=== PATIENT | male | born 1950 | race Caucasian/White ===

== ENCOUNTER 2016-09-07 12:55 | Inpatient (IN) | payer MEDICARE, OTHER ==
[~2016-09-07] VITALS: Ht 177.8 cm; Wt 113.4 kg
[~2016-09-07 12:55] MED LIST: ALLO100T PO; ASPI325T PO; CYMB30CA PO; FURO40TA PO; GABA800T PO; HUMALOG SQ; ISOS30TA3 PO; LANTUS2P SQ; LIPI40TA PO; LISI-519 PO; METO50TA PO; NITR1SUB3 SL; OXYC1TAB36 PO; SPIR25TA PO
[2016-09-07] MEDS: NS 1000P @30 MLS/HR (KVO) IV SCH (14:00)
[2016-09-07 14:18] LABS: AUTOMATED NEUTROPHIL # 4.5 TH/MM3 (1.8-7.7); BASOPHIL % 0.6 % (0.0-2.0); EOSINOPHIL # 0.5 TH/MM3 (0-0.4); EOSINOPHIL % 7.6 % (0.0-4.0); HEMATOCRIT 39.9 % (39.0-51.0); HEMO FLAGS DIFF FINAL; LYMPH % 12.1 % (9.0-44.0); LYMPHOCYTE # 0.8 TH/MM3 (1.0-4.8); MEAN CELL VOLUME 88.5 FL (80.0-100.0); MEAN CORPUSCULAR HEMOGLOBIN 30.1 PG (27.0-34.0); MEAN CORPUSCULAR HGB CONC 34.1 % (32.0-36.0); MONO % 8.2 % (0.0-8.0); NEUT % 71.5 % (16.0-70.0); PLATELET COUNT 185 TH/MM3 (150-450); RED CELL DISTRIBUTION WIDTH 15.1 % (11.6-17.2); WHITE BLOOD COUNT 6.3 TH/MM3 (4.0-11.0)
[2016-09-07 14:31] LABS: APTT (PATIENT) 28.1 SEC (24.3-30.1); PROTHROMBIN TIME - PATIENT 11.1 SEC (9.8-11.6)
[2016-09-07 14:34] LABS: BICARBONATE 24.9 MEQ/L (21.0-32.0)
[2016-09-07] MEDS ORDERED: ISOS60TA PO (14:37)
[2016-09-07] MEDS ORDERED: TAMS0.4C4 PO (14:37)
[2016-09-07] MEDS ORDERED: NORT25CA PO (14:37)
[2016-09-07] MEDS ORDERED: CLOP75TA PO (14:37)
[2016-09-07] MEDS ORDERED: ASPI1TAB69 PO (14:37)
[2016-09-07 14:39] VITALS: BP 160/87; PULSE 89; RESP 18; TEMP 97.8; O2SAT 99
[2016-09-07] MEDS ORDERED: HEPARIN-NS/PF INJ 500 ML ONE ×2 (16:20→17:55)
[2016-09-07] MEDS ORDERED: IODIXANOL 320 MG/ML 100 ML VIAL (for Cath Lab) OTHER ONE (16:21)
[2016-09-07] MEDS ORDERED: MIDAZOLAM HCL 5 MG/5 ML VIAL ONE (16:21)
[2016-09-07] MEDS ORDERED: LIDOCAINE HCL 1% PF 30 ML VIAL ONE (17:54)
[2016-09-07] MEDS ORDERED: HEPARIN SODIUM - IV 10,000 UNITS/10 ML VIAL ONE (18:00)
[2016-09-07] MEDS ORDERED: SODIUM NITROPRUSSIDE 50 MG/2 ML VIAL ONE (18:43)
[2016-09-07] MEDS ORDERED: MIDAZOLAM HCL 2 MG/2 ML VIAL ONE (18:48)
[2016-09-07] MEDS ORDERED: CLOPIDOGREL 300 MG TAB ONE (19:14)
[2016-09-07] MEDS ORDERED: HEPARIN-D5W INJ 250 ML ONE (19:15)
[2016-09-07 19:30] VITALS: O2SAT 97
--- NOTE | 2016-09-07 19:37 | HHI.PR ---
Immediate Post Op Note Procedure Date: Sep 07, 2016 Pre Op Diagnosis: [place], high risk nuc Post Op Diagnosis: Severe MV CAD Surgeon: Martha Cummins MD, Facc Distiller(s): none Procedure: Cath Impella PTCA and stent svg to D1 Findings: 2/6 grafts patent 80% SVG D1 patent SVG OM Complications: none Specimen(s) removed: none Estimated blood loss: below 10 cc Patient to: Other Patient Condition: Fair Martha Cummins MD Sep 07, 2016 19:37
[2016-09-07 20:00] VITALS: BP 178/101; PULSE 120; PULSE 92; RESP 24; TEMP 96.6; O2SAT 96
[2016-09-07] MEDS: SODIUM CHLOR 0.9% 1000 ML INJ 1,000 ML IV SCH (21:26)
[2016-09-07] MEDS ORDERED: MISCELLANEOUS NURSING INFORMATION XX SCH (21:30)
[2016-09-07] MEDS ORDERED: METOCLOPRAMIDE HCL 10 MG/2 ML VIAL IV PRN (21:30)
[2016-09-07] MEDS ORDERED: CHLORHEXIDINE GLUCONATE 2 % 1 PACK (2 CLOTHS) TOP PRN (21:30)
[2016-09-07] MEDS ORDERED: SODIUM CHLORIDE 0.9% FLUSH 5 ML FLUSH IV FLUSH PRN (21:30)
[2016-09-07] MEDS ORDERED: MISC INFORMATION XX ONE (21:30)
[2016-09-07] MEDS ORDERED: HEPARIN SODIUM - IV 10,000 UNITS/10 ML VIAL IV ONE (21:45)
[2016-09-07] MEDS ORDERED: ATROPINE SULFATE 1 MG/10 ML SYRINGE ONE (21:54)
[2016-09-07] MEDS ORDERED: EPINEPHrine HCL (1:10,000) 1 MG/10 ML SYRINGE ONE (21:55)
[2016-09-07] MEDS ORDERED: HEPARIN-D5W INJ 250 ML IV SCH (22:00)
--- NOTE | 2016-09-07 22:16 | PD.CONS ---
HPI Service Critical Care Medicine Consult Requested By Primary Care Physician Annette Salcedo MD History of Present Illness 66-year-old gentleman with a history of coronary artery disease status post CABG underwent emergent cardiac catheterization by Dr. Cummins. Postprocedure his course is complicated by aphasia and right-sided weakness. 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 CALL 911 IF NO RELIEF Humalog Inj (Insulin Human Lispro) 1,000 Unit/10 Ml Vial 40 Units SQ TIDAC Metoprolol Tartrate 50 Mg Tab 50 Mg PO BID Lantus Inj (Insulin Glargine) 1,000 Unit/10 Ml Vial 80 Units SQ HS Reported Clopidogrel (Clopidogrel Bisulfate) 75 Mg Tab 75 Mg PO DAILY Tamsulosin (Tamsulosin HCl) 0.4 Mg Cap 0.4 Mg PO HS Isosorbide Mononitrate ER (Isosorbide Mononitrate) 60 Mg Tab 60 Mg PO DAILY Aspirin 81 Mg Tabdr 81 Mg PO DAILY Nortriptyline (Nortriptyline HCl) 25 Mg Cap 25 Mg PO HS Gabapentin 800 Mg Tab 800 Mg PO TID Lipitor (Atorvastatin Calcium) 40 Mg Tab 40 Mg PO HS Active Ordered Medications Current Medications Medications (Trade) Dose Ordered Sig/Eric Route PRN Reason Start Time Stop Time Status Last Admin Dose Admin Sodium Chloride (NS 1000 ml Inj) 1,000 ml @ 30 mls/hr Q24H IV 09/07/16 14:00 Aspirin (Ecotrin Ec) 81 mg DAILY PO 09/08/16 09:00 Atorvastatin Calcium (Lipitor) 40 mg HS PO 09/07/16 21:30 09/08/16 02:56 Clopidogrel Bisulfate (Plavix) 75 mg DAILY PO 09/08/16 09:00 Isosorbide Mononitrate (Imdur) 60 mg DAILY@07 PO 09/08/16 07:00 Metoprolol Tartrate 50 mg 50 mg BID PO 09/07/16 21:30 09/08/16 02:56 Sodium Chloride (NS 1000 ml Inj) 1,000 ml @ 84 mls/hr [id number] IV 09/07/16 21:26 09/07/16 21:26 IV Flush (NS Flush) 2 ml UNSCH PRN IV FLUSH FLUSH AFTER USING IV ACCESS 09/07/16 21:30 IV Flush (NS Flush) 2 ml BID IV FLUSH 09/08/16 09:00 Acetaminophen (Tylenol) 650 mg Q6H PRN PO PAIN 1-10 AND/OR FEVER >101F 09/07/16 21:30 Morphine Sulfate (Morphine Inj) 2 mg Q2H PRN IV PAIN SCALE 6 TO 10 09/07/16 21:30 09/08/16 01:00 Famotidine (Pepcid Inj) 20 mg Q24H IV PUSH 09/08/16 09:00 Lorazepam (Ativan Inj) 0.5 mg Q2HR PRN IV Agitation/Sedation 09/07/16 21:30 09/08/16 01:00 Ondansetron HCl (Zofran Inj) 4 mg Q6H PRN IV NAUSEA OR VOMITING 09/07/16 21:30 09/08/16 03:00 Metoclopramide HCl (Reglan Inj) 5 mg Q6H PRN IV NAUSEA OR VOMITING 09/07/16 21:30 Docusate Sodium (Colace) 100 mg BID PO 09/08/16 09:00 Miscellaneous Information 1 [id number] XX 09/07/16 21:30 Chlorhexidine Gluconate (Chlorhexidine 2% Cloth) 3 pack Taper DAILY@04 TOP 09/08/16 04:00 09/04/17 03:59 09/08/16 04:00 Chlorhexidine Gluconate (Chlorhexidine 2% Cloth) 3 pack UNSCH PRN TOP HYGIENIC CARE 09/07/16 21:30 Heparin Sodium (Porcine) (Heparin Inj) 5,000 units UNSCH PRN IV APTT LESS THAN 25 09/08/16 03:45 Heparin Sodium (Porcine) 2500 units 2,500 units UNSCH PRN IV APTT 25 TO 39 09/08/16 03:45 Heparin Sodium/ Dextrose 250 ml @ 0 mls/hr TITRATE IV 09/07/16 22:00 Dexmedetomidine HCl 1000 mcg/ Sodium Chloride 250 ml @ 0 mls/hr TITRATE IV 09/08/16 00:45 09/08/16 01:51 Heparin Sodium (Porcine)/Dextrose (Heparin Inj/D5W 500 ml Inj) 502.5 ml @ 0 mls/hr Q24H PRN IV SEE LABEL COMMENTS 09/08/16 01:00 09/08/16 01:52 Hydralazine HCl (Apresoline Inj) 20 mg Q4H PRN IV PUSH SBP>160, DBP>90 09/08/16 04:30 09/08/16 04:43 Family History Noncontributory Social History Lives alone, previously in [place] and [place]. (X3). Son locally in town to help on occasion. 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 Never smoker. No alcohol, no illicit drug abuse. Physical Exam Vital Signs Vital Signs Date Time Temp Pulse Resp B/P Pulse Ox O2 Delivery O2 Flow Rate FiO2 09/07/16 14:39 97.8 89 18 160/87 99 Physical Exam GENERAL: Well-nourished, well-developed patient. Aphasic SKIN: Warm and dry. HEAD: Normocephalic. EYES: No scleral icterus. No injection or drainage. NECK: Supple, trachea midline. No JVD or lymphadenopathy. CARDIOVASCULAR: Regular rate and rhythm without murmurs, gallops, or rubs. RESPIRATORY: Breath sounds equal bilaterally. No accessory muscle use. GASTROINTESTINAL: Abdomen soft, non-tender, nondistended. MUSCULOSKELETAL: No cyanosis, or edema. BACK: Nontender without obvious deformity. No CVA tenderness. EXTREMITIES: Pronator drift on the right, right-sided weakness Laboratory Laboratory Tests Test 09/07/16 13:40 White Blood Count 6.3 Red Blood Count 4.50 Hemoglobin 13.6 Hematocrit 39.9 Mean Corpuscular Volume 88.5 Mean Corpuscular Hemoglobin 30.1 Mean Corpuscular Hemoglobin 34.1 Concent Red Cell Distribution Width 15.1 Platelet Count 185 Mean Platelet Volume 7.8 Neutrophils (%) (Auto) 71.5 Lymphocytes (%) (Auto) 12.1 Monocytes (%) (Auto) 8.2 Eosinophils (%) (Auto) 7.6 Basophils (%) (Auto) 0.6 Neutrophils # (Auto) 4.5 Lymphocytes # (Auto) 0.8 Monocytes # (Auto) 0.5 Eosinophils # (Auto) 0.5 Basophils # (Auto) 0.0 CBC Comment DIFF FINAL Differential Comment Prothrombin Time 11.1 Prothromb Time International 1.0 Ratio Activated Partial 28.1 Thromboplast Time Sodium Level 137 Potassium Level 5.0 Chloride Level 104 Carbon Dioxide Level 24.9 Anion Gap 8 Blood Urea Nitrogen 45 Creatinine 3.05 Estimat Glomerular Filtration 21 Rate Random Glucose 162 Calcium Level 8.6 Result Diagram: 09/07/16 1340 09/07/16 1340 Assessment and Plan Problem List: (1) Coronary artery disease involving [place] heart ICD Code: I25.10 Status: Chronic (2) HTN (hypertension) ICD Code: I10 Status: Acute (3) CKD (chronic kidney disease) ICD Code: N18.9 Status: Acute Assessment and Plan Aphasia with right-sided weakness - CT head stat to rule out hemorrhagic stroke - Blood pressure control - If no bleed to continue anticoagulation per cardiology - Neurology consult - Physical therapy occupational therapy and speech therapy consult Acute on chronic kidney disease - Continue gentle hydration - Monitor I's and O's - Monitor electrolytes and creatinine - Continue Impalal device to improve clearance - Avoid nephrotoxins Coronary artery disease - Status post cardiac catheter and interventions - Further management per cardiology Diabetes - Insulin sliding scale Obstructive sleep apnea - CPAP per home settings DVT GI prophylaxis - Heparin drip - Pepcid Critical Care: The total critical care time was 35 minutes. Time to perform other separately billable procedures was not included in the critical care time. Tadeo Garcia MD Sep 07, 2016 22:16
--- NOTE | 2016-09-07 22:27 | RADRPT ---
EXAM DATE/TIME: 09/07/2016 22:08 [facility] COMPARISON: No previous studies available for comparison. INDICATIONS : Altered mental status. RADIATION DOSE: 56.35 CTDIvol (mGy) MEDICAL HISTORY : Hypertension. Cerebrovascular disease. SURGICAL HISTORY : None. ENCOUNTER: Subsequent ACUITY: 1 day PAIN SCALE: Non-responsive LOCATION: cranial TECHNIQUE: Multiple contiguous axial images were obtained of the head. Using automated exposure control and adj ustment of the mA and/or kV according to patient size, radiation dose was kept as low as reasonably a chievable to obtain optimal diagnostic quality images. FINDINGS: CEREBRUM: The ventricles are normal for age. No evidence of midline shift, mass lesion, hemorrhage or acute in farction. No extra-axial fluid collections are seen. POSTERIOR FOSSA: The cerebellum and brainstem are intact. The 4th ventricle is midline. The cerebellopontine angle i s unremarkable. EXTRACRANIAL: Small amount of fluid/debris seen in the right maxillary air cell. There appears to be some soft tiss ue swelling in the right super orbital region. SKULL: The calvaria is intact. No evidence of skull fracture. CONCLUSION: No acute intracranial abnormality. Sinus disease and supraorbital soft tissue swelling. Michael Vasquez MD on September 07, 2016 at 22:22 Board Certified Radiologist. This report was verified electronically.
--- NOTE | 2016-09-07 22:39 | RADRPT ---
EXAM DATE/TIME: 09/07/2016 22:21 [facility] COMPARISON: CHEST SINGLE AP, May 27, 2016, 8:27. INDICATIONS : Impella implant device positioning. MEDICAL HISTORY : Hypertension. Hypercholesterolemia. Arthritis. Diabetic. GERD. CVA. [place]. SURGICAL HISTORY : CABG. Cardiac cath w/ stent placement. ENCOUNTER: Initial ACUITY: 1 day PAIN SCORE: Non-responsive. LOCATION: Bilateral chest FINDINGS: Left ventricular assist device present, distal portion without in expected region of the left ventric ular apex and the other portion in the region of the aortic outflow tract. There is mild cardiomegaly . Patient has had previous median sternotomy and CABG. Mild, diffuse interstitial prominence of both lungs. CONCLUSION: Impella implant appears grossly appropriately positioned on this one view study. Mild failure. Michael Vasquez MD on September 07, 2016 at 22:31 Board Certified Radiologist. This report was verified electronically.
[2016-09-07] MEDS: MORPHINE SULFATE 4 MG/ML INJ IV PRN (22:45)
[2016-09-07] MEDS: LORazepam 2 MG/ML VIAL IV PRN (22:50)
[2016-09-07] MEDS ORDERED: DEXMEDETOMIDINE INJ 50 ML ONE ×2 (22:59→23:15)
[2016-09-07 23:00] VITALS: PULSE 80
[2016-09-07 23:06] LABS: HEMATOCRIT 43.3 % (39.0-51.0); MEAN CELL VOLUME 89.8 FL (80.0-100.0); MEAN CORPUSCULAR HEMOGLOBIN 30.2 PG (27.0-34.0); MEAN CORPUSCULAR HGB CONC 33.6 % (32.0-36.0); PLATELET COUNT 198 TH/MM3 (150-450); RED BLOOD COUNT 4.82 MIL/MM3 (4.50-5.90); RED CELL DISTRIBUTION WIDTH 15.3 % (11.6-17.2); REVIEW FLAG FINAL; WHITE BLOOD COUNT 8.6 TH/MM3 (4.0-11.0)
[2016-09-07 23:17] LABS: APTT (PATIENT) 52.6 SEC (24.3-30.1); PROTHROMBIN TIME - PATIENT 11.1 SEC (9.8-11.6)
[2016-09-07] MEDS: DEXMEDETOMIDINE INJ 50 ML IV SCH ×2 (23:28→23:31)
[2016-09-07 23:30] VITALS: BP 167/104; PULSE 79; RESP 22; TEMP 98; O2SAT 98
[2016-09-08] VITALS (13 sets, daily range): BP systolic 105–166; BP diastolic 53–91; PULSE 63–97; RESP 16–22; TEMP 98.4–99.9; O2SAT 90–99
[2016-09-08] MEDS ORDERED: DEXMEDETOMIDINE INJ 50 ML ONE (00:45)
[2016-09-08] MEDS: LORazepam 2 MG/ML VIAL IV PRN ×3 (01:00→23:00)
[2016-09-08] MEDS: MORPHINE SULFATE 4 MG/ML INJ IV PRN (01:00)
[2016-09-08] MEDS ORDERED: HEPARIN IV PRN ×2 (01:00)
[2016-09-08] MEDS ORDERED: DEXTROSE 5% IV PRN ×2 (01:00)
[2016-09-08] MEDS ORDERED: WATE IV PRN ×2 (01:00)
[2016-09-08] MEDS: DEXMEDETOMIDINE INJ 1,000 MCG in SODIUM CHLOR 0.9% 250 ML INJ 240 ML IV SCH ×2 (01:51→13:00)
[2016-09-08] MEDS: METOPROLOL TARTRATE 50 MG TAB PO SCH ×3 (02:56→20:46)
[2016-09-08] MEDS: ATORVASTATIN 40 MG TAB PO SCH ×2 (02:56→20:46)
[2016-09-08] MEDS: ONDANSETRON HCL 4 MG/2 ML VIAL IV PRN ×2 (03:00→22:00)
[2016-09-08] MEDS ORDERED: HEPARIN SODIUM - IV 10,000 UNITS/10 ML VIAL IV PRN ×2 (03:45)
[2016-09-08] MEDS: CHLORHEXIDINE GLUCONATE 2 % 1 PACK (2 CLOTHS) TOP SCH (04:00)
[2016-09-08] MEDS: hydrALAZINE HCL 20 MG/ML VIAL IV PUSH PRN ×2 (04:43→13:31)
[2016-09-08 04:55] LABS: AUTOMATED NEUTROPHIL # 8.2 TH/MM3 (1.8-7.7); BASOPHIL % 0.3 % (0.0-2.0); EOSINOPHIL # 0.4 TH/MM3 (0-0.4); EOSINOPHIL % 4.2 % (0.0-4.0); HEMATOCRIT 39.9 % (39.0-51.0); HEMO FLAGS DIFF FINAL; LYMPH % 5.4 % (9.0-44.0); LYMPHOCYTE # 0.5 TH/MM3 (1.0-4.8); MEAN CELL VOLUME 89.7 FL (80.0-100.0); MEAN CORPUSCULAR HEMOGLOBIN 30.3 PG (27.0-34.0); MEAN CORPUSCULAR HGB CONC 33.8 % (32.0-36.0); MONO % 7.6 % (0.0-8.0); NEUT % 82.5 % (16.0-70.0); PLATELET COUNT 168 TH/MM3 (150-450); RED BLOOD COUNT 4.45 MIL/MM3 (4.50-5.90); RED CELL DISTRIBUTION WIDTH 14.9 % (11.6-17.2)
[2016-09-08 05:04] LABS: APTT (PATIENT) 39.2 SEC (24.3-30.1)
[2016-09-08 05:23] LABS: ALKALINE PHOSPHATASE 60 U/L (45-117); ALT (GPT) 24 U/L (12-78); ANION GAP 9 MEQ/L (5-15); AST (GOT) 27 U/L (15-37); BICARBONATE 21.4 MEQ/L (21.0-32.0); BLOOD UREA NITROGEN 39 MG/DL (7-18); CHLORIDE 108 MEQ/L (98-107); CREATINE KINASE 370 U/L (39-308); GLOMERULAR FILTRATION RATE 25 ML/MIN (>89); HDL CHOLESTEROL 34.7 MG/DL (40.0-60.0); LDL CHOLESTEROL 149 MG/DL (0-99); MAGNESIUM 1.8 MG/DL (1.5-2.5); POTASSIUM 6.1 MEQ/L (3.5-5.1); SODIUM (NA) 138 MEQ/L (136-145); TOTAL BILIRUBIN ADULT 0.6 MG/DL (0.2-1.0)
[2016-09-08 05:52] LABS: CKMB 8.8 NG/ML (0.5-3.6)
[2016-09-08] MEDS: ISOSORBIDE MONONITRATE 60 MG TAB PO SCH ×2 (06:27→13:41)
--- NOTE | 2016-09-08 07:34 | MA ---
cc: VIVIENNE ANGEL DATE: 09/07/2016 INDICATIONS: 1. Unstable angina, Class IV angina. 2. History of multivessel coronary bypass. 3. High risk nuclear myocardial perfusion study. 4. Cardiomyopathy with moderate left ventricular systolic dysfunction. 5. Class II systolic congestive heart failure. PROCEDURE PERFORMED: 1. Retrograde left heart catheterization with left ventriculography, selective coronary angiography, saphenous venous graft angiography, left internal mammary artery angiography. 2. Insertion of External Heart Assist System into heart, percutaneous approach. 3. Angioplasty and stenting of the saphenous vein graft to the first diagonal artery. 4. Moderate sedation. ACCESS SITE: Left and right femoral artery. EQUIPMENT USED: A 5-American pigtail catheter, 5-American JL4 and AR modified coronary artery catheters, AL-1/bypass graft coronary catheter. Impella 4.0 external assist system. Left bypass graft catheter with side holes. BMW wire. 2.0 x 12-mm balloon for pre-dilatation. 3.0 x 18-mm Resolute stent at 16 atmospheres. MEDICATIONS: Versed IV. Fentanyl IV. Heparin IV. Nitroglycerin IC. Nipride IC. COMPLICATIONS: None. ESTIMATED BLOOD LOSS: Less than 10 cc. METHOD OF HEMOSTASIS: AngioSeal closure of the right femoral artery. Impella pump left in place. RESULTS HEMODYNAMICS: Heart rate 80 beats per minute. Left ventricular end-diastolic pressure 15 mmHg. Left ventricle 140/16. Aorta 140/80-125. LEFT VENTRICULOGRAPHY: Left ventricular ejection fraction 40% with moderate global hypokinesis. CORONARY ANGIOGRAPHY: The left main coronary artery is patent. The left anterior descending coronary artery is totally occluded in the mid-portion. D1 is totally occluded. The left circumflex artery is totally occluded at its ostium. The right coronary artery is totally occluded in the proximal portion in-stent. Ramus intermedius totally occluded in the proximal portion. SAPHENOUS VEIN GRAFTS: The left subclavian artery is patent. The left internal mammary artery is atretic, occluded. Saphenous vein graft to the first diagonal artery has 80% stenosis in the proximal portion. Saphenous vein graft to the obtuse marginal artery is patent. Saphenous vein graft to the second diagonal artery is totally occluded. Saphenous vein graft to the posterolateral branch of the right coronary artery is totally occluded. Stenosis in the saphenous vein graft to the first diagonal artery was 14-mm long, 80%, pre KRYSTAL flow 2, post KRYSTAL flow 3, post-stenosis 0. POST-INTERVENTION ANGIOGRAPHY: No thrombosis, dissection or distal embolization. DIAGNOSES: 1. Severe multivessel coronary artery disease with two out of six grafts patent with 80% stenosis of the saphenous vein graft to the first diagonal artery. 2. Moderate left ventricular dysfunction consistent with ischemic cardiomyopathy. 3. Placement of Impella External Heart Assist system. 4. Successful stenting and angioplasty of the saphenous venous graft to the first diagonal artery. DISPOSITION: 1. Mr. Whitten will be monitored in the CV ICU. 2. We will continue anticoagulation with heparin and also continue platelet inhibition with aspirin and Plavix. 3. We will continue aggressive modification of his cardiac risk factors. 4. We will closely monitor his renal function since he has significant baseline renal insufficiency. 5. If he remains stable, his Impella External Heart Assist device will be removed tomorrow. MD RELL Castaneda/JE /8:05 PM /7:07 AM ROBIN
[2016-09-08] MEDS: SODIUM CHLORIDE 0.9% FLUSH 5 ML FLUSH IV FLUSH SCH ×2 (09:00→20:46)
[2016-09-08] MEDS: FAMOTIDINE 20 MG/2 ML VIAL IV PUSH SCH (09:00)
--- NOTE | 2016-09-08 09:14 | MB ---
cc: CALLIE TERRAZAS M.D. DATE OF CONSULTATION 09/08/2016 REASON FOR CONSULTATION He is seen in neurological consultation. He is a 66-year-old with a history of a right hemiparesis an aphasia following cardiac catheterization with angiopathy and stenting. The patient has a history of CABG. He had unstable angina and cardiomyopathy. He underwent cardiac catheterization yesterday with insertion of an external heart system into heart, percutaneous approach and angioplasty and stenting of the saphenous vein graft to the first diagonal artery as per Dr. Cummins's description. He was treated with heparin intravenous and also aspirin and Plavix. NEUROLOGICAL EXAM The neurologic exam is very limited at this point. The patient is on Precedex and reportedly according to the nursing staff, he is agitated without the discussed sedation. He is obese and also has a history of chronic renal failure. The pupils were very small. Stimulation to muscle stretch reflex essentially disclosed no responses. Plantar stimulation also shows minimal or no response. ASSESSMENT Post cardiac cath/angiopathy/stenting, the patient reportedly developed aphasia and a right hemiparesis. The CT brain is showing no acute abnormality, sinus disease and supraorbital soft tissue swelling noted. There is a history of severe coronary artery disease, previous CABG. PLAN Continue heparin therapy. Antiplatelets therapy already initiated and the patient was given a loading dose of Plavix and now on 75 mg daily along with baby aspirin. When medically stable and feasible, follow up CT brain or an MRI of brain will be arranged and more adequate neurological assessment will be made. I will follow the neurological course. Thank you for asking us to assist in his care. MD JO Khanna/PREMA /8:36 AM /8:53 AM
[2016-09-08] MEDS ORDERED: BACITRACIN OINT 0.9 GM PKT ONE (09:19)
[2016-09-08 09:56] LABS: BLOOD GAS BASE EXCESS -2.3 mmol/L (-2-2); BLOOD GAS CARBOXYHEMOGLOBIN 1.9 % (0-4); BLOOD GAS HCO3 23 mmol/L (22-26); BLOOD GAS METHEMOGLOBIN 1.3 % (0-2); BLOOD GAS O2 HGB SATURATION 93 % (90-100); BLOOD GAS OXYGEN CONTENT 17.8 Vol % (12.0-20.0); BLOOD GAS PCO2 43 mmHg (38-42); BLOOD GAS PO2 84 mmHg (61-120); BLOOD GAS TOTAL HGB 13.6 G/DL (12.0-16.0); CRITICAL VALUE NO; DRAW SITE ART LINE; FIO2 25 %; OXYGEN DEVICE BiPAP; STAT NO; TEMP CORR TO 98.6; VENT SETTINGS IPAP14/EPAP7
[2016-09-08 12:17] LABS: APTT (PATIENT) 29.2 SEC (24.3-30.1)
[2016-09-08] MEDS ORDERED: GLUCAGON 1 MG/ML VIAL OTHER PRN (12:45)
[2016-09-08] MEDS ORDERED: SODIUM BICARBONATE 8.4% INJ 50 MEQ/50 ML SYR IV PUSH ONE (12:45)
[2016-09-08] MEDS ORDERED: INSULIN HUMAN REGULAR 1,000 UNITS/10 ML VIAL IV PUSH ONE (12:45)
[2016-09-08] MEDS ORDERED: SODIUM POLYSTYRENE SULFONATE SUSP 15 GM/60 ML CUP PO ONE (12:45)
[2016-09-08] MEDS ORDERED: DEXTROSE 50% IN WATER 50 ML VIAL(D50) IV PUSH PRN (12:45)
[2016-09-08] MEDS ORDERED: SODIUM BICARBONATE 8.4% INJ 50 ML ONE (12:51)
[2016-09-08] MEDS: INSULIN NovoLIN REGULAR SUPPLEMENTAL SCALE SQ SCH ×3 (12:56→21:00)
--- NOTE | 2016-09-08 13:00 | HHI.CCPN ---
Subjective Remarks/Hospital Course 66-year-old gentleman with a history of coronary artery disease status post CABG underwent emergent cardiac catheterization by Dr. Cummins. Postprocedure his course is complicated by aphasia and right-sided weakness. 09/08 Patient was on BIPAP 14/7 with FIO2 25%. On Precedex and heparin drips. CT brain showed last night showed no acute process. Impela was removed this morning by Dr. Cummins. T:99.9 Renal function improving with Cr:2.5 from 3.0 hyperkalemic with K 6.1 Objective Vital Signs Date Time Temp Pulse Resp B/P Pulse Ox O2 Delivery O2 Flow Rate FiO2 09/08/16 11:40 97 Nasal Cannula 3.00 09/08/16 11:00 99.9 64 22 148/81 166/76 09/08/16 08:10 25 Result Diagram: 09/08/16 0430 09/08/16 043 Other Results Laboratory Tests Test 09/07/16 09/07/16 09/08/16 09/08/16 13:40 22:49 04:30 09:45 White Blood Count 6.3 TH/MM3 8.6 TH/MM3 10.0 TH/MM3 Red Blood Count 4.50 MIL/MM3 4.82 MIL/MM3 4.45 MIL/MM3 Hemoglobin 13.6 GM/DL 14.5 GM/DL 13.5 GM/DL Hematocrit 39.9 % 43.3 % 39.9 % Mean Corpuscular Volume 88.5 FL 89.8 FL 89.7 FL Mean Corpuscular Hemoglobin 30.1 PG 30.2 PG 30.3 PG Mean Corpuscular Hemoglobin 34.1 % 33.6 % 33.8 % Concent Red Cell Distribution Width 15.1 % 15.3 % 14.9 % Platelet Count 185 TH/MM3 198 TH/MM3 168 TH/MM3 Mean Platelet Volume 7.8 FL 7.9 FL 7.5 FL Neutrophils (%) (Auto) 71.5 % 82.5 % Lymphocytes (%) (Auto) 12.1 % 5.4 % Monocytes (%) (Auto) 8.2 % 7.6 % Eosinophils (%) (Auto) 7.6 % 4.2 % Basophils (%) (Auto) 0.6 % 0.3 % Neutrophils # (Auto) 4.5 TH/MM3 8.2 TH/MM3 Lymphocytes # (Auto) 0.8 TH/MM3 0.5 TH/MM3 Monocytes # (Auto) 0.5 TH/MM3 0.8 TH/MM3 Eosinophils # (Auto) 0.5 TH/MM3 0.4 TH/MM3 Basophils # (Auto) 0.0 TH/MM3 0.0 TH/MM3 CBC Comment DIFF FINAL DIFF FINAL Differential Comment Prothrombin Time 11.1 SEC 11.1 SEC Prothromb Time International 1.0 RATIO 1.0 RATIO Ratio Activated Partial 28.1 SEC 52.6 SEC 39.2 SEC Thromboplast Time Sodium Level 137 MEQ/L 138 MEQ/L Potassium Level 5.0 MEQ/L 6.1 MEQ/L Chloride Level 104 MEQ/L 108 MEQ/L Carbon Dioxide Level 24.9 MEQ/L 21.4 MEQ/L Anion Gap 8 MEQ/L 9 MEQ/L Blood Urea Nitrogen 45 MG/DL 39 MG/DL Creatinine 3.05 MG/DL 2.54 MG/DL Estimat Glomerular Filtration 21 ML/MIN 25 ML/MIN Rate Random Glucose 162 MG/DL 254 MG/DL Calcium Level 8.6 MG/DL 7.7 MG/DL Ammonia 13 MCMOL/L Troponin I 0.72 NG/ML 0.56 NG/ML Nasal Screen MRSA (PCR) NEGATIVE Magnesium Level 1.8 MG/DL Total Bilirubin 0.6 MG/DL Direct Bilirubin 0.1 MG/DL Aspartate Amino Transf 27 U/L (AST/SGOT) Alanine Aminotransferase 24 U/L (ALT/SGPT) Alkaline Phosphatase 60 U/L Total Creatine Kinase 370 U/L Creatine Kinase MB 8.8 NG/ML Creatine Kinase MB % 2.4 % Total Protein 7.0 GM/DL Albumin 3.0 GM/DL Triglycerides Level 211 MG/DL Cholesterol Level 226 MG/DL LDL Cholesterol 149 MG/DL HDL Cholesterol 34.7 MG/DL Cholesterol/HDL Ratio 6.51 RATIO Blood Gas Puncture Site ART LINE Blood Gas Patient Temperature 98.6 Blood Gas HCO3 23 mmol/L Blood Gas Base Excess -2.3 mmol/L Blood Gas Oxygen Saturation 93 % Arterial Blood pH 7.34 Arterial Blood Partial 43 mmHg Pressure CO2 Arterial Blood Partial 84 mmHg Pressure O2 Arterial Blood Oxygen Content 17.8 Vol % Arterial Blood 1.9 % Carboxyhemoglobin Arterial Blood Methemoglobin 1.3 % Blood Gas Hemoglobin 13.6 G/DL Oxygen Delivery Device BiPAP Blood Gas Ventilator Setting [id number] Blood Gas Inspired Oxygen 25 % Test 09/08/16 11:36 Activated Partial 29.2 SEC Thromboplast Time Imaging Last Impressions Head CT 09/07/16 0000 Signed Impressions: Service Date/Time: Wednesday, September 07, 2016 22:08 - CONCLUSION: No acute intracranial abnormality. Sinus disease and supraorbital soft tissue swelling. Michael Vasquez MD Chest X-Ray 09/07/16 0000 Signed Impressions: Service Date/Time: Wednesday, September 07, 2016 22:21 - CONCLUSION: Impella implant appears grossly appropriately positioned on this one view study. Mild failure. Michael Vasquez MD Objective Remarks GENERAL: Well-nourished, well-developed patient. Aphasic SKIN: Warm and dry. HEAD: Normocephalic. EYES: No scleral icterus. No injection or drainage. NECK: Supple, trachea midline. No JVD or lymphadenopathy. CARDIOVASCULAR: Regular rate and rhythm without murmurs, gallops, or rubs. RESPIRATORY: Breath sounds equal bilaterally. No accessory muscle use. GASTROINTESTINAL: Abdomen soft, non-tender, nondistended. MUSCULOSKELETAL: No cyanosis, or edema. BACK: Nontender without obvious deformity. No CVA tenderness. EXTREMITIES: Pronator drift on the right, right-sided weakness A/P Problem List: (1) Coronary artery disease involving [place] heart ICD Code: I25.10 Status: Chronic (2) HTN (hypertension) ICD Code: I10 Status: Acute (3) CKD (chronic kidney disease) ICD Code: N18.9 Status: Acute Assessment and Plan 1)Resp Insuff 2)Aphasia with right-sided weakness 3)CAD 4)Acute on chronic kidney disease 5)Hyperkalemia 6)DM 7)HTN 8)LEONARD 90Hyperlipidemia Plan Neuro: Monitor neuro status and avoid sedatives. Wean off Precedex drip. CT brain 09/07: No acute disease, Neuro is following- Cr. Patrick Pulm: Continue with oxygen keep sat >92% Bronchodilators, NIPPV PRN for resp distress CV: Monitor HR and BP keep MAP>65mmHg Continue with ASA, Plavix, Imdur 60mg daily, Lopressor 50mg BID. s/p cardiac cath showed multivessel disease with 2/6 grafts patent, EF 40 %. s/p removal Impella today. Cards- Dr. Cummins : Monitor renal function, I/O's, avoid nephrotoxins. treat hyperkalemia with IV insulin, bicarb, rafal gluconate, Kayexalate Renal function improving with Cr: 2.5 from 3.0. UO 2300ml since yesterday.. Renal-Dr. Naidu GI: Speech eval, diet per speech. On Pepcid IV daily ID: Monitor for signs of infections ( Fever, WBC) check UA with cx if indicated Heme: Monitor CBC Endo: SSI with accuchecks for glycemic control GI prophylaxis- on Pepcid DVT prophylaxis- SCD, on heparin drip. Level 3 Leroy Urena MD Sep 08, 2016 13:00
[2016-09-08] MEDS ORDERED: RESP: ALBUTEROL 2.5 MG/3 ML NEB (SCH) NEB ONE (13:15)
--- NOTE | 2016-09-08 13:25 | PD.CONS ---
HPI Service Nephrology Consult Requested By Dr. Urena Reason for Consult Acute renal failure Primary Care Physician Annette Salcedo MD History of Present Illness Patient is a 66-year-old male with history of coronary artery disease status post CABG, osteoarthritis, diabetes, hyperlipidemia who was admitted there with unstable angina and underwent heart catheterization found to have significant blockages requiring stent and impella device, he has acute renal failure and creatinine although better his potassium went up to 6.1 this was treated medically and he received D50 insulin and sodium bicarbonate, I have been consulted he is passing urine, other complication including right sided weakness and CVA Review of Systems ROS Limitations: Clinical Condition Past Family Social History Allergies: Coded Allergies: No Known Allergies (Verified , 09/07/16) Past Medical History Coronary artery disease, with multiple stents DM II, with neuropathy, on insulin CKD, with baseline creatinine 2.5, stage 3 gout HTN hyperlipidemia chronic scrotal swelling, h/o scrotal abscess + Rheumatoid factor sleep apnea, on CPAP Depression Past Surgical History Bilateral knee cardiac catheterization, 2000 with ~10 stents CABG bilateral knee prosthesis right 1996, left 1999 due to gout attack 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 CALL 911 IF NO RELIEF Humalog Inj (Insulin Human Lispro) 1,000 Unit/10 Ml Vial 40 Units SQ TIDAC Metoprolol Tartrate 50 Mg Tab 50 Mg PO BID Lantus Inj (Insulin Glargine) 1,000 Unit/10 Ml Vial 80 Units SQ HS Reported Clopidogrel (Clopidogrel Bisulfate) 75 Mg Tab 75 Mg PO DAILY Tamsulosin (Tamsulosin HCl) 0.4 Mg Cap 0.4 Mg PO HS Isosorbide Mononitrate ER (Isosorbide Mononitrate) 60 Mg Tab 60 Mg PO DAILY Aspirin 81 Mg Tabdr 81 Mg PO DAILY Nortriptyline (Nortriptyline HCl) 25 Mg Cap 25 Mg PO HS Gabapentin 800 Mg Tab 800 Mg PO TID Lipitor (Atorvastatin Calcium) 40 Mg Tab 40 Mg PO HS Active Ordered Medications Current Medications Medications (Trade) Dose Ordered Sig/Eric Route Start Time Stop Time Status Last Admin (NS 1000 ml Inj) 1,000 ml @ 30 mls/hr Q24H IV 09/07/16 14:00 (Ecotrin Ec) 81 mg DAILY PO 09/08/16 09:00 (Lipitor) 40 mg HS PO 09/07/16 21:30 09/08/16 02:56 (Plavix) 75 mg DAILY PO 09/08/16 09:00 (Imdur) 60 mg DAILY@07 PO 09/08/16 07:00 Metoprolol Tartrate 50 mg 50 mg BID PO 09/07/16 21:30 09/08/16 02:56 (NS 1000 ml Inj) 1,000 ml @ 84 mls/hr [id number] IV 09/07/16 21:26 09/07/16 21:26 (NS Flush) 2 ml UNSCH PRN IV FLUSH 09/07/16 21:30 (NS Flush) 2 ml BID IV FLUSH 09/08/16 09:00 (Tylenol) 650 mg Q6H PRN PO 09/07/16 21:30 (Morphine Inj) 2 mg Q2H PRN IV 09/07/16 21:30 09/08/16 01:00 (Pepcid Inj) 20 mg Q24H IV PUSH 09/08/16 09:00 (Ativan Inj) 0.5 mg Q2HR PRN IV 09/07/16 21:30 09/08/16 01:00 (Zofran Inj) 4 mg Q6H PRN IV 09/07/16 21:30 09/08/16 03:00 (Reglan Inj) 5 mg Q6H PRN IV 09/07/16 21:30 (Colace) 100 mg BID PO 09/08/16 09:00 Miscellaneous Information 1 Q361D XX 09/07/16 21:30 (Chlorhexidine 2% Cloth) 3 pack Taper DAILY@04 TOP 09/08/16 04:00 09/04/17 03:59 09/08/16 04:00 (Chlorhexidine 2% Cloth) 3 pack UNSCH PRN TOP 09/07/16 21:30 Hydralazine HCl 20 mg 20 mg Q4H PRN IV PUSH 09/08/16 04:30 09/08/16 04:43 (Calcium Gluconate Inj/NS Inj) 110 ml @ 110 mls/hr ONCE ONCE IV 09/08/16 14:00 09/08/16 14:59 (D50w (Vial) Inj) 25 ml UNSCH PRN IV PUSH 09/08/16 12:45 (Glucagon Inj) 1 mg UNSCH PRN OTHER 09/08/16 12:45 (NovoLIN R SUPPLEMENTAL SCALE) 1 Q4H SQ 09/08/16 13:00 09/08/16 12:56 Family History Noncontributory Social History Denies smoking or alcohol Physical Exam Vital Signs Vital Signs Date Time Temp Pulse Resp B/P Pulse Ox O2 Delivery O2 Flow Rate FiO2 09/08/16 11:40 97 Nasal Cannula 3.00 09/08/16 11:35 96 Nasal Cannula 3.00 09/08/16 11:00 99.9 64 22 148/81 99 166/76 09/08/16 11:00 99 Bi-Pap 09/08/16 11:00 63 09/08/16 08:10 96 25 09/08/16 07:00 99.9 73 22 164/70 97 09/08/16 07:00 97 Bi-Pap 09/08/16 07:00 73 09/08/16 03:43 98 25 09/08/16 03:00 72 09/08/16 03:00 98.4 70 16 156/91 94 09/08/16 03:00 98 Bi-Pap 09/08/16 01:00 98 Bi-Pap 09/08/16 00:54 97 25 09/07/16 23:30 98.0 79 22 167/104 98 09/07/16 23:30 24 09/07/16 23:00 80 09/07/16 20:00 96 Room Air 09/07/16 20:00 120 09/07/16 20:00 96.6 92 24 178/101 96 09/07/16 19:30 97 Nasal Cannula 2.00 09/07/16 14:39 97.8 89 18 160/87 99 Physical Exam GENERAL: Well-nourished, well-developed patient. SKIN: Warm and dry. HEAD: Normocephalic. EYES: No scleral icterus. No injection or drainage. NECK: Supple, trachea midline. No JVD or lymphadenopathy. CARDIOVASCULAR: Regular rate and rhythm without murmurs, gallops, or rubs. RESPIRATORY: Breath sounds bilateral rhonchi GASTROINTESTINAL: Abdomen soft, non-tender, nondistended. EXTREMITIES: No cyanosis, or edema. NEUROLOGICAL: Sedated Laboratory Laboratory Tests Test 09/07/16 09/07/16 09/08/16 09/08/16 13:40 22:49 04:30 09:45 White Blood Count 6.3 8.6 10.0 Red Blood Count 4.50 4.82 4.45 Hemoglobin 13.6 14.5 13.5 Hematocrit 39.9 43.3 39.9 Mean Corpuscular Volume 88.5 89.8 89.7 Mean Corpuscular Hemoglobin 30.1 30.2 30.3 Mean Corpuscular Hemoglobin 34.1 33.6 33.8 Concent Red Cell Distribution Width 15.1 15.3 14.9 Platelet Count 185 198 168 Mean Platelet Volume 7.8 7.9 7.5 Neutrophils (%) (Auto) 71.5 82.5 Lymphocytes (%) (Auto) 12.1 5.4 Monocytes (%) (Auto) 8.2 7.6 Eosinophils (%) (Auto) 7.6 4.2 Basophils (%) (Auto) 0.6 0.3 Neutrophils # (Auto) 4.5 8.2 Lymphocytes # (Auto) 0.8 0.5 Monocytes # (Auto) 0.5 0.8 Eosinophils # (Auto) 0.5 0.4 Basophils # (Auto) 0.0 0.0 CBC Comment DIFF FINAL DIFF FINAL Differential Comment Prothrombin Time 11.1 11.1 Prothromb Time International 1.0 1.0 Ratio Activated Partial 28.1 52.6 39.2 Thromboplast Time Sodium Level 137 138 Potassium Level 5.0 6.1 Chloride Level 104 108 Carbon Dioxide Level 24.9 21.4 Anion Gap 8 9 Blood Urea Nitrogen 45 39 Creatinine 3.05 2.54 Estimat Glomerular Filtration 21 25 Rate Random Glucose 162 254 Calcium Level 8.6 7.7 Ammonia 13 Troponin I 0.72 0.56 Nasal Screen MRSA (PCR) NEGATIVE Magnesium Level 1.8 Total Bilirubin 0.6 Direct Bilirubin 0.1 Aspartate Amino Transf 27 (AST/SGOT) Alanine Aminotransferase 24 (ALT/SGPT) Alkaline Phosphatase 60 Total Creatine Kinase 370 Creatine Kinase MB 8.8 Creatine Kinase MB % 2.4 Total Protein 7.0 Albumin 3.0 Triglycerides Level 211 Cholesterol Level 226 LDL Cholesterol 149 HDL Cholesterol 34.7 Cholesterol/HDL Ratio 6.51 Blood Gas Puncture Site ART LINE Blood Gas Patient Temperature 98.6 Blood Gas HCO3 23 Blood Gas Base Excess -2.3 Blood Gas Oxygen Saturation 93 Arterial Blood pH 7.34 Arterial Blood Partial 43 Pressure CO2 Arterial Blood Partial 84 Pressure O2 Arterial Blood Oxygen Content 17.8 Arterial Blood 1.9 Carboxyhemoglobin Arterial Blood Methemoglobin 1.3 Blood Gas Hemoglobin 13.6 Oxygen Delivery Device BiPAP Blood Gas Ventilator Setting IPAP14/EPAP7 Blood Gas Inspired Oxygen 25 Test 09/08/16 11:36 Activated Partial 29.2 Thromboplast Time Result Diagram: 09/08/16 0430 09/08/16 0430 Imaging Last Impressions Head CT 09/07/16 0000 Signed Impressions: Service Date/Time: Wednesday, September 07, 2016 22:08 - CONCLUSION: No acute intracranial abnormality. Sinus disease and supraorbital soft tissue swelling. Michael Vasquez MD Chest X-Ray 09/07/16 0000 Signed Impressions: Service Date/Time: Wednesday, September 07, 2016 22:21 - CONCLUSION: Impella implant appears grossly appropriately positioned on this one view study. Mild failure. Michael Vasquez MD Assessment and Plan Problem List: (1) Acute renal failure Plan: Patient has received heart catheterization will monitor for kidney injury he is making urine and impella device was removed he has hyperkalemia this is being treated to Avoid nephrotoxic agent Monitor BMP Get baseline kidney ultrasound (2) Hyperkalemia Plan: I will lead to albuterol to regimen (3) Chronic kidney disease Plan: He has stage III chronic kidney disease due to diabetic (4) CHF (congestive heart failure), NYHA class III Plan: Continue to monitor for improvement (5) Coronary artery disease involving [place] heart Plan: Review his bypass and stents (6) Hypertension, essential, benign Plan: Monitor blood pressure (7) Diabetes mellitus, type II Plan: Monitor blood glucose Problem Qualifiers (1) Acute renal failure: Qualified Code: N17.0 - Acute renal failure with tubular necrosis (2) Chronic kidney disease: Qualified Code: N18.3 - Chronic kidney disease, stage 3 (moderate) Marisol Naidu MD Sep 08, 2016 13:25
[2016-09-08] MEDS: DOCUSATE SODIUM 100 MG CAP PO SCH ×2 (13:41→20:46)
[2016-09-08] MEDS: CLOPIDOGREL 75 MG TAB PO SCH (13:41)
[2016-09-08] MEDS: ASPIRIN EC 81 MG TABEC PO SCH (13:41)
[2016-09-08] MEDS: NS 1000P @30 MLS/HR (KVO) IV SCH (14:00)
[2016-09-08] MEDS ORDERED: CALCIUM GLUCONATE INJ 1 GM in SODIUM CHLORIDE 0.9% INJ 100 ML IV ONE (14:00)
[2016-09-08] MEDS: RESP: ALBUTEROL 2.5 MG/IPRATROPIUM 0.5 MG NEB (SCH) NEB ×2 (15:18→19:27)
--- NOTE | 2016-09-08 16:41 | RADRPT ---
EXAM DATE/TIME: 09/08/2016 16:04 [facility] COMPARISON: No previous studies available for comparison. INDICATIONS : Increased BUN and creatinine. MEDICAL HISTORY : Hypercholesterolemia. Hypertension. Benign prostatic hyperplasia, (BPH) Bilateral neuropathy, feet. G ERD. Diabetes. Diverculitis. Dyspnea. SURGICAL HISTORY : CABG. Cataract right eye. Coronary stent. Bilateral knee replacement. ENCOUNTER: Initial ACUITY: 1 day PAIN SCORE: Nonresponsive. LOCATION: Bilateral flank MEASUREMENTS: RIGHT KIDNEY: 13.9 x 5.4 x 5.1 cm LEFT KIDNEY: 13.0 x 4.1 x 6.4 cm FINDINGS: RIGHT KIDNEY: Renal cortex is normal in thickness and echotexture. No hydronephrosis, stone, or mass. There is a 6 .3 cm cyst of the lower pole which is exophytic LEFT KIDNEY: Renal cortex is normal in thickness and echotexture. No hydronephrosis, stone, or mass. BLADDER: Decompressed with Guillen catheter in place CONCLUSION: Large 6.3 cm cyst lower pole laterally left kidney. No evidence of hydronephrosis or obstructive urop athy.. Christian Cooper MD on September 08, 2016 at 16:38 Board Certified Radiologist. This report was verified electronically.
--- NOTE | 2016-09-08 17:38 | PD.CARD.PN ---
Subjective Subjective Remarks Sedated, moving all 4 extremities, aphasic Objective Medications Current Medications Medications (Trade) Dose Ordered Sig/Eric Route Start Time Stop Time Status Last Admin (NS 1000 ml Inj) 1,000 ml @ 30 mls/hr Q24H IV 09/07/16 14:00 (Ecotrin Ec) 81 mg DAILY PO 09/08/16 09:00 09/08/16 13:41 (Lipitor) 40 mg HS PO 09/07/16 21:30 09/08/16 02:56 (Plavix) 75 mg DAILY PO 09/08/16 09:00 09/08/16 13:41 (Imdur) 60 mg DAILY@07 PO 09/08/16 07:00 09/08/16 13:41 Metoprolol Tartrate 50 mg 50 mg BID PO 09/07/16 21:30 09/08/16 13:42 (NS 1000 ml Inj) 1,000 ml @ 84 mls/hr [id number] IV 09/07/16 21:26 09/07/16 21:26 (NS Flush) 2 ml UNSCH PRN IV FLUSH 09/07/16 21:30 (NS Flush) 2 ml BID IV FLUSH 09/08/16 09:00 (Tylenol) 650 mg Q6H PRN PO 09/07/16 21:30 (Morphine Inj) 2 mg Q2H PRN IV 09/07/16 21:30 09/08/16 01:00 (Pepcid Inj) 20 mg Q24H IV PUSH 09/08/16 09:00 (Ativan Inj) 0.5 mg Q2HR PRN IV 09/07/16 21:30 09/08/16 01:00 (Zofran Inj) 4 mg Q6H PRN IV 09/07/16 21:30 09/08/16 03:00 (Reglan Inj) 5 mg Q6H PRN IV 09/07/16 21:30 (Colace) 100 mg BID PO 09/08/16 09:00 09/08/16 13:41 Miscellaneous Information 1 Q361D XX 09/07/16 21:30 (Chlorhexidine 2% Cloth) 3 pack Taper DAILY@04 TOP 09/08/16 04:00 09/04/17 03:59 09/08/16 04:00 (Chlorhexidine 2% Cloth) 3 pack UNSCH PRN TOP 09/07/16 21:30 (Apresoline Inj) 20 mg Q4H PRN IV PUSH 09/08/16 04:30 09/08/16 13:31 (D50w (Vial) Inj) 25 ml UNSCH PRN IV PUSH 09/08/16 12:45 (Glucagon Inj) 1 mg UNSCH PRN OTHER 09/08/16 12:45 (NovoLIN R SUPPLEMENTAL SCALE) 1 Q4H SQ 09/08/16 13:00 09/08/16 12:56 Vital Signs / I&O Vital Signs Date Time Temp Pulse Resp B/P Pulse Ox O2 Delivery O2 Flow Rate FiO2 09/08/16 15:00 99.8 79 18 97 116/53 09/08/16 15:00 97 Nasal Cannula 4.00 09/08/16 15:00 79 09/08/16 13:00 90 Nasal Cannula 4.00 09/08/16 13:00 99.5 70 22 90 157/69 09/08/16 11:40 97 Nasal Cannula 3.00 09/08/16 11:35 96 Nasal Cannula 3.00 09/08/16 11:00 99.9 64 22 148/81 99 166/76 09/08/16 11:00 99 Bi-Pap 09/08/16 11:00 63 09/08/16 08:10 96 25 09/08/16 07:00 99.9 73 22 164/70 97 09/08/16 07:00 97 Bi-Pap 09/08/16 07:00 73 09/08/16 03:43 98 25 09/08/16 03:00 72 09/08/16 03:00 98.4 70 16 156/91 94 09/08/16 03:00 98 Bi-Pap 09/08/16 01:00 98 Bi-Pap 09/08/16 00:54 97 25 09/07/16 23:30 98.0 79 22 167/104 98 09/07/16 23:30 24 09/07/16 23:00 80 09/07/16 20:00 96 Room Air 09/07/16 20:00 120 09/07/16 20:00 96.6 92 24 178/101 96 09/07/16 19:30 97 Nasal Cannula 2.00 I/O 2/21/09/07/16 09/07/16 09/08/16 09/08/16 09/08/16 07:00 15:00 23:00 07:00 15:00 23:00 Intake Total 1574 ml 2337 ml Output Total 2300 ml 905 ml Balance -726 ml 1432 ml Intake IV Total 1574 ml 2337 ml Output Urine Total 2300 ml 905 ml # Bowel Movements 0 0 Physical Exam GENERAL: SKIN: Warm and dry. HEAD: Normocephalic. Facial asymetry. EYES: No scleral icterus. No injection or drainage. NECK: Supple, trachea midline. No JVD or lymphadenopathy. CARDIOVASCULAR: Regular rate and rhythm without murmurs, gallops, or rubs. RESPIRATORY: Breath sounds equal bilaterally. No accessory muscle use. GASTROINTESTINAL: Abdomen soft, non-tender, nondistended, obese MUSCULOSKELETAL: No cyanosis, or edema. Laboratory Laboratory Tests Test 09/07/16 09/08/16 09/08/16 09/08/16 22:49 04:30 09:45 11:36 White Blood Count 8.6 TH/MM3 10.0 TH/MM3 Red Blood Count 4.82 MIL/MM3 4.45 MIL/MM3 Hemoglobin 14.5 GM/DL 13.5 GM/DL Hematocrit 43.3 % 39.9 % Mean Corpuscular Volume 89.8 FL 89.7 FL Mean Corpuscular Hemoglobin 30.2 PG 30.3 PG Mean Corpuscular Hemoglobin 33.6 % 33.8 % Concent Red Cell Distribution Width 15.3 % 14.9 % Platelet Count 198 TH/MM3 168 TH/MM3 Mean Platelet Volume 7.9 FL 7.5 FL Prothrombin Time 11.1 SEC Prothromb Time International 1.0 RATIO Ratio Activated Partial 52.6 SEC 39.2 SEC 29.2 SEC Thromboplast Time Ammonia 13 MCMOL/L Troponin I 0.72 NG/ML 0.56 NG/ML Neutrophils (%) (Auto) 82.5 % Lymphocytes (%) (Auto) 5.4 % Monocytes (%) (Auto) 7.6 % Eosinophils (%) (Auto) 4.2 % Basophils (%) (Auto) 0.3 % Neutrophils # (Auto) 8.2 TH/MM3 Lymphocytes # (Auto) 0.5 TH/MM3 Monocytes # (Auto) 0.8 TH/MM3 Eosinophils # (Auto) 0.4 TH/MM3 Basophils # (Auto) 0.0 TH/MM3 CBC Comment DIFF FINAL Differential Comment Nasal Screen MRSA (PCR) NEGATIVE Sodium Level 138 MEQ/L Potassium Level 6.1 MEQ/L Chloride Level 108 MEQ/L Carbon Dioxide Level 21.4 MEQ/L Anion Gap 9 MEQ/L Blood Urea Nitrogen 39 MG/DL Creatinine 2.54 MG/DL Estimat Glomerular Filtration 25 ML/MIN Rate Random Glucose 254 MG/DL Calcium Level 7.7 MG/DL Magnesium Level 1.8 MG/DL Total Bilirubin 0.6 MG/DL Direct Bilirubin 0.1 MG/DL Aspartate Amino Transf 27 U/L (AST/SGOT) Alanine Aminotransferase 24 U/L (ALT/SGPT) Alkaline Phosphatase 60 U/L Total Creatine Kinase 370 U/L Creatine Kinase MB 8.8 NG/ML Creatine Kinase MB % 2.4 % Total Protein 7.0 GM/DL Albumin 3.0 GM/DL Triglycerides Level 211 MG/DL Cholesterol Level 226 MG/DL LDL Cholesterol 149 MG/DL HDL Cholesterol 34.7 MG/DL Cholesterol/HDL Ratio 6.51 RATIO Blood Gas Puncture Site ART LINE Blood Gas Patient Temperature 98.6 Blood Gas HCO3 23 mmol/L Blood Gas Base Excess -2.3 mmol/L Blood Gas Oxygen Saturation 93 % Arterial Blood pH 7.34 Arterial Blood Partial 43 mmHg Pressure CO2 Arterial Blood Partial 84 mmHg Pressure O2 Arterial Blood Oxygen Content 17.8 Vol % Arterial Blood 1.9 % Carboxyhemoglobin Arterial Blood Methemoglobin 1.3 % Blood Gas Hemoglobin 13.6 G/DL Oxygen Delivery Device BiPAP Blood Gas Ventilator Setting IPAP14/EPAP7 Blood Gas Inspired Oxygen 25 % Test 09/08/16 15:00 Potassium Level 4.8 MEQ/L Imaging Last Impressions Renal Ultrasound 09/08/16 0000 Signed Impressions: Service Date/Time: Thursday, September 08, 2016 16:04 - CONCLUSION: Large 6.3 cm cyst lower pole laterally left kidney. No evidence of hydronephrosis or obstructive uropathy.. Christian Cooper MD Head CT 09/07/16 0000 Signed Impressions: Service Date/Time: Wednesday, September 07, 2016 22:08 - CONCLUSION: No acute intracranial abnormality. Sinus disease and supraorbital soft tissue swelling. Mihcael Vasquez MD Chest X-Ray 09/07/16 0000 Signed Impressions: Service Date/Time: Wednesday, September 07, 2016 22:21 - CONCLUSION: Impella implant appears grossly appropriately positioned on this one view study. Mild failure. Michael Vasquez MD Assessment and Plan Problem List: (1) Unstable angina (2) CAD (coronary artery disease) of bypass graft (3) CHF (congestive heart failure), NYHA class II (4) Cardiomyopathy, ischemic (5) Chronic kidney disease (6) Suspected cerebrovascular accident (7) Abnormal nuclear stress test Assessment and Plan Continue ICU monitoring. Continue Plavix and ASA. BP control. Neurology evaluation for suspected CVA. Head CT with no evidence of ICH. Impella removed without difficulties. Monitor renal fx. D/w pt's caregiver. Problem Qualifiers (1) Chronic kidney disease: Qualified Code: N18.3 - Chronic kidney disease, stage 3 (moderate) Martha Cummins MD Sep 08, 2016 17:38
--- NOTE | 2016-09-08 17:39 | PD.CARD ---
Cardiology Procedure Note Procedure Name: Removal of Impella External Heart Assist System Procedure Date: Sep 08, 2016 Procedure Note: Impella removed without difficulties. Groin pressure for 45 min. No bleeding. Continue monitoring. Martha Cummins MD Sep 08, 2016 17:39
[2016-09-08 18:31] LABS: BLOOD, URINE SMALL (NEG); GLUCOSE,URINE 70 mg/dL (NEG); KETONE, URINE NEG (NEG); MUCUS URINE FEW /lpf (OCC); NITRITE,URINE NEG (NEG); PH, URINE 5.5 (5.0-8.5); SQUAMOUS EPITHELIAL CELL URINE <1 /hpf (0-5); URINE COLOR YELLOW (YELLW/STRAW)
[2016-09-08 18:38] LABS: COMMENT (UR) CATH-CULTURE IND; CULTURE IF INDICATED CATH CULTURE IND
[2016-09-08] MEDS: SODIUM CHLOR 0.9% 1000 ML INJ 1,000 ML IV SCH (21:00)
--- NOTE | 2016-09-08 22:00 | EKG ---
Date Performed: 09/08/2016 Time Performed: 04:22:08 PTAGE: 66 years EKG: Sinus rhythm with borderline 1st degree A-V block Left axis deviation Possible anteroseptal infarct - age undeter mined Lateral T wave changes are nonspecific Mild IVCD Abnormal ECG PREVIOUS TRACING : 09/07/2016 14.00 Compared to prior tracing no significant change DOCTOR: Martha Cummins Interpretating Date/Time 09/08/2016 21:58:55
--- NOTE | 2016-09-08 22:08 | EKG ---
Date Performed: 09/07/2016 Time Performed: 22:54:38 PTAGE: 66 years EKG: Sinus tachycardia with PVC(s) IV conduction defect Possible anteroseptal infarct - age unde termined Inferior T wave changes are nonspecific Abnormal ECG Compared to prior tracing no significan t change DOCTOR: Martha Cummins Interpretating Date/Time 09/08/2016 22:07:15
--- NOTE | 2016-09-08 22:08 | EKG ---
Date Performed: 09/07/2016 Time Performed: 22:55:46 PTAGE: 66 years EKG: Sinus tachycardia IV conduction defect Possible anteroseptal infarct - age undetermined Inf erior/lateral T wave changes are nonspecific Abnormal ECG PREVIOUS TRACING : 09/07/2016 22.54 Compared to the previous tracing, no PVCs present DOCTOR: Martha Cummins Interpretating Date/Time 09/08/2016 22:06:48
--- NOTE | 2016-09-08 22:31 | EKG ---
Date Performed: 09/07/2016 Time Performed: 14:00:16 PTAGE: 66 years EKG: Sinus arrhythmia with PVC(s) Left axis deviation Inferior infarct - age undetermined Possib le anteroseptal infarct - age undetermined Lateral ST-T changes Abnormal ECG PREVIOUS TRACING : 05/27/2016 06.23 Compared to prior tracing no significant change DOCTOR: Martha Cummins Interpretating Date/Time 09/08/2016 22:29:25
[2016-09-09] VITALS (13 sets, daily range): BP systolic 127–141; BP diastolic 59–101; PULSE 78–126; RESP 16–28; TEMP 98.1–99.8; O2SAT 93–99
[2016-09-09] MEDS: RESP: ALBUTEROL 2.5 MG/IPRATROPIUM 0.5 MG NEB (SCH) NEB ×6 (00:21→20:17)
[2016-09-09] MEDS: MORPHINE SULFATE 4 MG/ML INJ IV PRN (01:00)
[2016-09-09] MEDS: INSULIN NovoLIN REGULAR SUPPLEMENTAL SCALE SQ SCH ×7 (01:01→23:57)
[2016-09-09] MEDS ORDERED: HALOPERIDOL LACTATE 5 MG/ML AMP ONE (02:34)
[2016-09-09] MEDS ORDERED: HALOPERIDOL LACTATE 5 MG/ML AMP IV ONE ×2 (02:45→11:30)
[2016-09-09] MEDS: CHLORHEXIDINE GLUCONATE 2 % 1 PACK (2 CLOTHS) TOP SCH (04:00)
[2016-09-09 06:28] LABS: AUTOMATED NEUTROPHIL # 9.1 TH/MM3 (1.8-7.7); EOSINOPHIL # 0.1 TH/MM3 (0-0.4); EOSINOPHIL % 0.5 % (0.0-4.0); HEMATOCRIT 36.6 % (39.0-51.0); HEMO FLAGS DIFF FINAL; LYMPH % 4.7 % (9.0-44.0); LYMPHOCYTE # 0.5 TH/MM3 (1.0-4.8); MEAN CELL VOLUME 89.6 FL (80.0-100.0); MEAN CORPUSCULAR HEMOGLOBIN 30.9 PG (27.0-34.0); MEAN CORPUSCULAR HGB CONC 34.5 % (32.0-36.0); NEUT % 83.8 % (16.0-70.0); PLATELET COUNT 180 TH/MM3 (150-450); RED BLOOD COUNT 4.08 MIL/MM3 (4.50-5.90); RED CELL DISTRIBUTION WIDTH 15.2 % (11.6-17.2); WHITE BLOOD COUNT 10.9 TH/MM3 (4.0-11.0)
[2016-09-09 06:52] LABS: BICARBONATE 24.8 MEQ/L (21.0-32.0); MAGNESIUM 1.9 MG/DL (1.5-2.5); POTASSIUM 4.4 MEQ/L (3.5-5.1)
--- NOTE | 2016-09-09 08:51 | HHI.CCPN ---
Subjective Remarks/Hospital Course 66-year-old gentleman with a history of coronary artery disease status post CABG underwent emergent cardiac catheterization by Dr. Cummins. Postprocedure his course is complicated by aphasia and right-sided weakness. 09/08 Patient was on BIPAP 14/7 with FIO2 25%. On Precedex and heparin drips. CT brain showed last night showed no acute process. Impela was removed this morning by Dr. Cummins. T:99.9 Renal function improving with Cr:2.5 from 3.0 hyperkalemic with K 6.1 09/09: Overnight remained on BiPAP predominantly for sleep apnea. Intermittently follows commands. Will check MRI of the brain today. Creatinine slightly worsened to 2.8. Consulted nephrology, hyperkalemia resolved Objective Vital Signs Date Time Temp Pulse Resp B/P Pulse Ox O2 Delivery O2 Flow Rate FiO2 09/09/16 07:47 97 25 09/09/16 07:00 Bi-Pap 09/09/16 07:00 99.6 121 23 137/101 09/09/16 03:00 3.00 Intake and Output 09/08/16 09/08/16 09/09/16 08:00 16:00 00:00 Intake Total 1574 ml 2607 ml Output Total 2300 ml 905 ml Balance -726 ml 1702 ml Result Diagram: 09/09/16 0551 09/09/16 0551 Other Results Laboratory Tests Test 09/08/16 09:45 Blood Gas Puncture Site ART LINE Blood Gas Patient Temperature 98.6 Blood Gas HCO3 23 mmol/L (22-26) Blood Gas Base Excess -2.3 mmol/L (-2-2) Blood Gas Oxygen Saturation 93 % (90-100) Arterial Blood pH 7.34 (7.380-7.420) Arterial Blood Partial 43 mmHg (38-42) Pressure CO2 Arterial Blood Partial 84 mmHg Pressure O2 (61-120) Arterial Blood Oxygen Content 17.8 Vol % (12.0-20.0) Arterial Blood 1.9 % (0-4) Carboxyhemoglobin Arterial Blood Methemoglobin 1.3 % (0-2) Blood Gas Hemoglobin 13.6 G/DL (12.0-16.0) Oxygen Delivery Device BiPAP Blood Gas Ventilator Setting IPAP14/EPAP7 Blood Gas Inspired Oxygen 25 % Imaging Last Impressions Head CT 09/07/16 0000 Signed Impressions: Service Date/Time: Wednesday, September 07, 2016 22:08 - CONCLUSION: No acute intracranial abnormality. Sinus disease and supraorbital soft tissue swelling. Michael Vasquez MD Chest X-Ray 09/07/16 0000 Signed Impressions: Service Date/Time: Wednesday, September 07, 2016 22:21 - CONCLUSION: Impella implant appears grossly appropriately positioned on this one view study. Mild failure. Michael Vasquez MD Objective Remarks GENERAL: Well-nourished, well-developed patient. Aphasic SKIN: Warm and dry. HEAD: Normocephalic. EYES: No scleral icterus. No injection or drainage. NECK: Supple, trachea midline. No JVD or lymphadenopathy. CARDIOVASCULAR: Regular rate and rhythm without murmurs, gallops, or rubs. RESPIRATORY: Breath sounds equal bilaterally. No accessory muscle use. GASTROINTESTINAL: Abdomen soft, non-tender, nondistended. MUSCULOSKELETAL: No cyanosis, or edema. BACK: Nontender without obvious deformity. No CVA tenderness. EXTREMITIES: Pronator drift on the right, right-sided weakness, but following commands on right upper extremity. Intermittently encephalopathic Urinary Catheter: Yes Assessment to: Continue A/P Problem List: (1) Coronary artery disease involving [place] heart ICD Code: I25.10 Status: Chronic (2) HTN (hypertension) ICD Code: I10 Status: Acute (3) CKD (chronic kidney disease) ICD Code: N18.9 Status: Acute Assessment and Plan 1)Resp Insuff/obstructive sleep apnea 2)Aphasia with right-sided weakness, probable left MCA stroke 3)CAD 4)Acute on chronic kidney disease 5)Hyperkalemia 6)DM 7)HTN 8)LEONARD 90Hyperlipidemia Plan Neuro: Monitor neuro status and avoid sedatives. Wean off Precedex drip. CT brain 09/07: No acute disease, Neuro is following- Cr. Nguyen. Check MRI brain today r/o L MCA stroke Pulm: Continue with oxygen keep sat >92% Bronchodilators, NIPPV PRN for resp distress and at night for LEONARD CV: Monitor HR and BP keep MAP>65mmHg Continue with ASA, Plavix, Imdur 60mg daily, Lopressor 50mg BID. s/p cardiac cath 09/07 showed multivessel disease with 2/6 grafts patent, EF 40%. s/p PCI with stents of the saphenous venous graft to the first diagonal artery. s/p removal Impella 09/08. Cards- Dr. Cummins : Monitor renal function, I/O's, avoid nephrotoxins. s/p treatment of hyperkalemia with IV insulin, bicarb, rafal gluconate, Kayexalate Renal function improving with Cr: 2.8 from 2.5. UO 1500 ml in 24 hours Renal-Dr. Naidu GI: Speech eval, diet per speech. On Pepcid IV daily ID: Monitor for signs of infections ( Fever, WBC) check UA with cx if indicated Heme: Monitor CBC Endo: SSI with accuchecks for glycemic control GI prophylaxis- on Pepcid DVT prophylaxis- SCD, on heparin drip-DC drtip and start heparin 5000 units subcutaneous every 12 Level 2 Krishna Rodriguez MD Sep 09, 2016 08:51
--- NOTE | 2016-09-09 09:19 | PD.CARD.PN ---
Subjective Subjective Remarks No CP or SOB, still aphasic, off sedation Objective Medications Current Medications Medications (Trade) Dose Ordered Sig/Eric Route Start Time Stop Time Status Last Admin (NS 1000 ml Inj) 1,000 ml @ 30 mls/hr Q24H IV 09/07/16 14:00 (Ecotrin Ec) 81 mg DAILY PO 09/08/16 09:00 09/08/16 13:41 (Lipitor) 40 mg HS PO 09/07/16 21:30 09/08/16 20:46 (Plavix) 75 mg DAILY PO 09/08/16 09:00 09/08/16 13:41 Isosorbide Mononitrate 60 mg 60 mg DAILY@07 PO 09/08/16 07:00 09/08/16 13:41 (NS 1000 ml Inj) 1,000 ml @ 84 mls/hr [id number] IV 09/07/16 21:26 09/08/16 21:00 (NS Flush) 2 ml UNSCH PRN IV FLUSH 09/07/16 21:30 (NS Flush) 2 ml BID IV FLUSH 09/08/16 09:00 09/08/16 20:46 (Tylenol) 650 mg Q6H PRN PO 09/07/16 21:30 (Morphine Inj) 2 mg Q2H PRN IV 09/07/16 21:30 09/09/16 01:00 (Pepcid Inj) 20 mg Q24H IV PUSH 09/08/16 09:00 (Ativan Inj) 0.5 mg Q2HR PRN IV 09/07/16 21:30 09/08/16 23:00 (Zofran Inj) 4 mg Q6H PRN IV 09/07/16 21:30 09/08/16 22:00 (Reglan Inj) 5 mg Q6H PRN IV 09/07/16 21:30 (Colace) 100 mg BID PO 09/08/16 09:00 09/08/16 13:41 Miscellaneous Information 1 Q361D XX 09/07/16 21:30 (Chlorhexidine 2% Cloth) 3 pack Taper DAILY@04 TOP 09/08/16 04:00 09/04/17 03:59 09/09/16 04:00 (Chlorhexidine 2% Cloth) 3 pack UNSCH PRN TOP 09/07/16 21:30 (Apresoline Inj) 20 mg Q4H PRN IV PUSH 09/08/16 04:30 09/08/16 13:31 (D50w (Vial) Inj) 25 ml UNSCH PRN IV PUSH 09/08/16 12:45 (Glucagon Inj) 1 mg UNSCH PRN OTHER 09/08/16 12:45 (NovoLIN R SUPPLEMENTAL SCALE) 1 Q4H SQ 09/08/16 13:00 09/09/16 05:13 (Lopressor) 50 mg Q8H PO 09/09/16 14:00 (Heparin Inj) 5,000 units Q12HR SQ 09/09/16 09:00 Vital Signs / I&O Vital Signs Date Time Temp Pulse Resp B/P Pulse Ox O2 Delivery O2 Flow Rate FiO2 09/09/16 07:47 97 25 09/09/16 07:00 96 Bi-Pap 09/09/16 07:00 99.6 121 23 137/101 96 09/09/16 07:00 121 09/09/16 04:20 96 25 09/09/16 03:00 99.8 114 16 141/76 96 09/09/16 03:00 115 09/09/16 03:00 97 Bi-Pap 3.00 09/09/16 01:00 97 25 09/08/16 23:15 97 25 09/08/16 23:00 97 09/08/16 23:00 97 Bi-Pap 3.00 09/08/16 23:00 98.9 94 20 105/68 98 Arterial Line 09/08/16 19:27 99 Nasal Cannula 3.00 09/08/16 19:00 78 09/08/16 19:00 97 Nasal Cannula 3.00 09/08/16 19:00 99.6 78 16 129/54 97 Arterial Line 09/08/16 15:00 99.8 79 18 97 116/53 09/08/16 15:00 97 Nasal Cannula 4.00 09/08/16 15:00 79 09/08/16 13:00 90 Nasal Cannula 4.00 09/08/16 13:00 99.5 70 22 90 157/69 09/08/16 11:40 97 Nasal Cannula 3.00 09/08/16 11:35 96 Nasal Cannula 3.00 09/08/16 11:00 99.9 64 22 148/81 99 166/76 09/08/16 11:00 99 Bi-Pap 09/08/16 11:00 63 I/O 09/08/16 09/08/16 09/08/16 09/09/16 09/09/16 09/09/16 07:00 15:00 23:00 07:00 15:00 23:00 Intake Total 1574 ml 2607 ml 1008 ml Output Total 2300 ml 905 ml 650 ml Balance -726 ml 1702 ml 358 ml Intake Oral 0 ml IV Total 1574 ml 2337 ml 1008 ml Other 270 ml Output Urine Total 2300 ml 905 ml 650 ml # Bowel Movements 0 0 0 Physical Exam GENERAL: In NAD SKIN: Warm and dry. HEAD: Normocephalic. Facial asymetry. EYES: No scleral icterus. No injection or drainage. NECK: Supple, trachea midline. No JVD or lymphadenopathy. CARDIOVASCULAR: Regular rate and rhythm without murmurs, gallops, or rubs. RESPIRATORY: Breath sounds equal bilaterally. No accessory muscle use. GASTROINTESTINAL: Abdomen soft, non-tender, nondistended, obese MUSCULOSKELETAL: No cyanosis, or edema. NEURO: aphasic, confused Laboratory Laboratory Tests Test 09/08/16 09/08/16 09/08/16 09/08/16 09:45 11:36 15:00 17:40 Blood Gas Puncture Site ART LINE Blood Gas Patient Temperature 98.6 Blood Gas HCO3 23 mmol/L Blood Gas Base Excess -2.3 mmol/L Blood Gas Oxygen Saturation 93 % Arterial Blood pH 7.34 Arterial Blood Partial 43 mmHg Pressure CO2 Arterial Blood Partial 84 mmHg Pressure O2 Arterial Blood Oxygen Content 17.8 Vol % Arterial Blood 1.9 % Carboxyhemoglobin Arterial Blood Methemoglobin 1.3 % Blood Gas Hemoglobin 13.6 G/DL Oxygen Delivery Device BiPAP Blood Gas Ventilator Setting IPAP14/EPAP7 Blood Gas Inspired Oxygen 25 % Activated Partial 29.2 SEC Thromboplast Time Potassium Level 4.8 MEQ/L Urine Color YELLOW Urine Turbidity HAZY Urine pH 5.5 Urine Specific [place] 1.029 Urine Protein 300 mg/dL Urine Glucose (UA) 70 mg/dL Urine Ketones NEG mg/dL Urine Occult Blood SMALL Urine Nitrite NEG Urine Bilirubin NEG Urine Urobilinogen LESS THAN 2.0 MG/DL Urine Leukocyte Esterase SMALL Urine RBC 16 /hpf Urine WBC 29 /hpf Urine Squamous Epithelial <1 /hpf Cells Urine Mucus FEW /lpf Microscopic Urinalysis Comment CATH-CULTURE IND Test 09/09/16 05:51 White Blood Count 10.9 TH/MM3 Red Blood Count 4.08 MIL/MM3 Hemoglobin 12.6 GM/DL Hematocrit 36.6 % Mean Corpuscular Volume 89.6 FL Mean Corpuscular Hemoglobin 30.9 PG Mean Corpuscular Hemoglobin 34.5 % Concent Red Cell Distribution Width 15.2 % Platelet Count 180 TH/MM3 Mean Platelet Volume 7.9 FL Neutrophils (%) (Auto) 83.8 % Lymphocytes (%) (Auto) 4.7 % Monocytes (%) (Auto) 11.0 % Eosinophils (%) (Auto) 0.5 % Basophils (%) (Auto) 0.0 % Neutrophils # (Auto) 9.1 TH/MM3 Lymphocytes # (Auto) 0.5 TH/MM3 Monocytes # (Auto) 1.2 TH/MM3 Eosinophils # (Auto) 0.1 TH/MM3 Basophils # (Auto) 0.0 TH/MM3 CBC Comment DIFF FINAL Differential Comment Sodium Level 141 MEQ/L Potassium Level 4.4 MEQ/L Chloride Level 108 MEQ/L Carbon Dioxide Level 24.8 MEQ/L Anion Gap 8 MEQ/L Blood Urea Nitrogen 37 MG/DL Creatinine 2.89 MG/DL Estimat Glomerular Filtration 22 ML/MIN Rate Random Glucose 157 MG/DL Calcium Level 8.3 MG/DL Magnesium Level 1.9 MG/DL Imaging Last Impressions Renal Ultrasound 09/08/16 0000 Signed Impressions: Service Date/Time: Thursday, September 08, 2016 16:04 - CONCLUSION: Large 6.3 cm cyst lower pole laterally left kidney. No evidence of hydronephrosis or obstructive uropathy.. Christian Cooper MD Head CT 09/07/16 0000 Signed Impressions: Service Date/Time: Wednesday, September 07, 2016 22:08 - CONCLUSION: No acute intracranial abnormality. Sinus disease and supraorbital soft tissue swelling. Michael Vasquez MD Chest X-Ray 09/07/16 0000 Signed Impressions: Service Date/Time: Wednesday, September 07, 2016 22:21 - CONCLUSION: Impella implant appears grossly appropriately positioned on this one view study. Mild failure. Michael Vasquez MD Assessment and Plan Problem List: (1) Unstable angina (2) CAD (coronary artery disease) of bypass graft (3) CHF (congestive heart failure), NYHA class II (4) Cardiomyopathy, ischemic (5) Chronic kidney disease (6) Suspected cerebrovascular accident (7) Abnormal nuclear stress test Assessment and Plan Continue ICU monitoring. Continue Plavix and ASA to prevent stent thrombosis. BP controlled. Neurology evaluation for suspected CVA, MRI planned today. Head CT with no evidence of ICH. Impella removed without difficulties yesterday, groins remains stable. Monitor renal fx. Increase activities as tolerated. Problem Qualifiers (1) Chronic kidney disease: Qualified Code: N18.3 - Chronic kidney disease, stage 3 (moderate) Martha Cummins MD Sep 09, 2016 09:18
[2016-09-09] MEDS: SODIUM CHLOR 0.9% 1000 ML INJ 1,000 ML IV SCH ×2 (09:29→23:16)
[2016-09-09] MEDS: CLOPIDOGREL 75 MG TAB PO SCH (09:30)
[2016-09-09] MEDS: HEPARIN SODIUM - SQ 10,000 UNITS/ML VIAL SQ SCH ×2 (09:30→20:51)
[2016-09-09] MEDS: ASPIRIN EC 81 MG TABEC PO SCH (09:30)
[2016-09-09] MEDS: DOCUSATE SODIUM 100 MG CAP PO SCH ×2 (09:30→20:50)
[2016-09-09] MEDS: FAMOTIDINE 20 MG/2 ML VIAL IV PUSH SCH (09:30)
[2016-09-09] MEDS: SODIUM CHLORIDE 0.9% FLUSH 5 ML FLUSH IV FLUSH SCH ×2 (09:31→20:45)
[2016-09-09] MEDS ORDERED: LORazepam 2 MG/ML VIAL IV ONE (11:30)
[2016-09-09] MEDS: METOPROLOL TARTRATE 50 MG TAB PO SCH ×2 (12:10→20:51)
[2016-09-09] MEDS: DEXMEDETOMIDINE INJ 1,000 MCG in SODIUM CHLOR 0.9% 250 ML INJ 240 ML IV SCH ×2 (12:19→23:57)
[2016-09-09] MEDS: NS 1000P @30 MLS/HR (KVO) IV SCH (14:00)
--- NOTE | 2016-09-09 17:12 | OTSOAPIP ---
TIME SESSION COMPLETED: PM TREATMENT TIME: 0 MINS. CHART REVIEWED. ATTEMPTED TO SEE PATIENT FOR INITIAL OCCUPATIONAL THERAPY EVALUATION, HOWEVER PATIENT OFF FLOOR FOR MRI. WILL REATTEMPT TOMORROW. INTERDISCIPLINARY COMMUNICATION: REVIEWED ELECTRONIC MEDICAL RECORD, SPOKE WITH RN Therapist: Hoa Boyle OTR/L Signature on file
--- NOTE | 2016-09-09 17:13 | RADRPT ---
EXAM DATE/TIME: 09/09/2016 16:36 [facility] COMPARISON: CT BRAIN W/O CONTRAST, September 07, 2016, 22:08. INDICATIONS : CVA. Right facial droop with aphasia. MEDICAL HISTORY : Cardiovascular disease Hypertension. Diabetes mellitus type 2. SURGICAL HISTORY : CABG Total knee replacement, left. Total knee replacement, right. Prostate. ENCOUNTER: Subsequent ACUITY: 2 day PAIN SCORE: Nonresponsive. LOCATION: head. TECHNIQUE: Multiplanar, multisequence MRI of the brain was performed without contrast. FINDINGS: CEREBRUM: There is a focal area of restricted diffusion involving the anterior and mid sylvian region with effa cement of only one adjacent sulcus. No evidence of T1 shortening or susceptibility artifact. The ve ntricles are normal in size. No evidence of midline shift. The remainder of the supratentorial brai n is grossly intact with some scattered mild there is a T2 prolongation in the periventricular white matter, nonspecific. The pituitary gland is normal in configuration. POSTERIOR FOSSA: The cerebellum and brainstem are intact. The 4th ventricle is midline. The cerebellopontine angle is unremarkable. The cerebellar tonsils are normal in position. EXTRACRANIAL: The visualized portions of the orbits is unremarkable. There is a small air-fluid level in the right maxillary sinus and opacification of a few mid ethmoid air cells. CONCLUSION: 1. Findings demonstrate an acute infarction in the left sylvian region, nonhemorrhagic. 2. Small air-fluid level right maxillary sinus and mild bilateral ethmoid sinus disease. Suresh Diaz MD on September 09, 2016 at 17:07 Board Certified Radiologist. This report was verified electronically.
--- NOTE | 2016-09-09 17:32 | HHI.PR ---
Review/Management Daily Summary 09/09 requires sedation frequently seen on his to mri then mri seen later on left temporal/frontal lobe small acute infarct will follow Subjective Subjective Comments No acute events reported but agitation No seizures Active Medications Current Medications Medications (Trade) Dose Ordered Sig/Eric Route Start Time Stop Time Status Last Admin (NS 1000 ml Inj) 1,000 ml @ 30 mls/hr Q24H IV 09/07/16 14:00 (Ecotrin Ec) 81 mg DAILY PO 09/08/16 09:00 09/09/16 09:30 (Lipitor) 40 mg HS PO 09/07/16 21:30 09/08/16 20:46 (Plavix) 75 mg DAILY PO 09/08/16 09:00 09/09/16 09:30 Isosorbide Mononitrate 60 mg 60 mg DAILY@07 PO 09/08/16 07:00 09/08/16 13:41 (NS 1000 ml Inj) 1,000 ml @ 84 mls/hr [id number] IV 09/07/16 21:26 09/09/16 09:29 (NS Flush) 2 ml UNSCH PRN IV FLUSH 09/07/16 21:30 (NS Flush) 2 ml BID IV FLUSH 09/08/16 09:00 09/09/16 09:31 (Tylenol) 650 mg Q6H PRN PO 09/07/16 21:30 (Morphine Inj) 2 mg Q2H PRN IV 09/07/16 21:30 09/09/16 01:00 (Pepcid Inj) 20 mg Q24H IV PUSH 09/08/16 09:00 09/09/16 09:30 (Ativan Inj) 0.5 mg Q2HR PRN IV 09/07/16 21:30 09/08/16 23:00 (Zofran Inj) 4 mg Q6H PRN IV 09/07/16 21:30 09/08/16 22:00 (Reglan Inj) 5 mg Q6H PRN IV 09/07/16 21:30 (Colace) 100 mg BID PO 09/08/16 09:00 09/09/16 09:30 Miscellaneous Information 1 Q361D XX 09/07/16 21:30 (Chlorhexidine 2% Cloth) 3 pack Taper DAILY@04 TOP 09/08/16 04:00 09/04/17 03:59 09/09/16 04:00 (Chlorhexidine 2% Cloth) 3 pack UNSCH PRN TOP 09/07/16 21:30 (Apresoline Inj) 20 mg Q4H PRN IV PUSH 09/08/16 04:30 09/08/16 13:31 (D50w (Vial) Inj) 25 ml UNSCH PRN IV PUSH 09/08/16 12:45 (Glucagon Inj) 1 mg UNSCH PRN OTHER 09/08/16 12:45 (NovoLIN R SUPPLEMENTAL SCALE) 1 Q4H SQ 09/08/16 13:00 09/09/16 05:13 (Lopressor) 50 mg Q8H PO 09/09/16 14:00 09/09/16 12:10 Heparin Sodium (Porcine) 5000 units 5,000 units Q12HR SQ 09/09/16 09:00 09/09/16 09:30 (Precedex Inj/NS 250 ml Inj) 250 ml @ 0 mls/hr TITRATE IV 09/09/16 11:30 09/09/16 12:19 (Lacrilube Opht Oint) 1 applic BID EACH EYE 09/09/16 21:00 Allergies Allergies Coded Allergies No Known Allergies (Verified09/07/16) Exam I&O / VS 09/08/16 09/08/16 09/09/16 15:00 23:00 07:00 Intake Total 2607 ml 1008 ml Output Total 905 ml 650 ml Balance 1702 ml 358 ml Intake Oral 0 ml IV Total 2337 ml 1008 ml Other 270 ml Output Urine Total 905 ml 650 ml # Bowel Movements 0 0 Vital Signs Date Time Temp Pulse Resp B/P Pulse Ox O2 Delivery O2 Flow Rate FiO2 09/09/16 15:41 97 40 09/09/16 15:00 101 09/09/16 15:00 99.8 101 20 127/83 99 09/09/16 15:00 99 Nasal Cannula 4.00 09/09/16 11:00 93 Nasal Cannula 4.00 09/09/16 11:00 99.0 126 22 128/59 93 09/09/16 11:00 126 09/09/16 07:47 97 25 09/09/16 07:00 96 Bi-Pap 09/09/16 07:00 99.6 121 23 137/101 96 09/09/16 07:00 121 09/09/16 04:20 96 25 09/09/16 03:00 99.8 114 16 141/76 96 09/09/16 03:00 115 09/09/16 03:00 97 Bi-Pap 3.00 09/09/16 01:00 97 25 09/08/16 23:15 97 25 09/08/16 23:00 97 09/08/16 23:00 97 Bi-Pap 3.00 09/08/16 23:00 98.9 94 20 105/68 98 Arterial Line 09/08/16 19:27 99 Nasal Cannula 3.00 09/08/16 19:00 78 09/08/16 19:00 97 Nasal Cannula 3.00 09/08/16 19:00 99.6 78 16 129/54 97 Arterial Line Objective Radiology Results Last 48 hours Impressions Renal Ultrasound 09/08/16 0000 Signed Impressions: Service Date/Time: Thursday, September 08, 2016 16:04 - CONCLUSION: Large 6.3 cm cyst lower pole laterally left kidney. No evidence of hydronephrosis or obstructive uropathy.. Christian Cooper MD Micro and Labs Laboratory Tests Test 09/08/16 09/09/16 17:40 05:51 Urine Color YELLOW Urine Turbidity HAZY Urine pH 5.5 Urine Specific [place] 1.029 Urine Protein 300 Urine Glucose (UA) 70 Urine Ketones NEG Urine Occult Blood SMALL Urine Nitrite NEG Urine Bilirubin NEG Urine Urobilinogen LESS THAN 2.0 Urine Leukocyte Esterase SMALL Urine RBC 16 Urine WBC 29 Urine Squamous Epithelial <1 Cells Urine Mucus FEW Microscopic Urinalysis Comment CATH-CULTURE IND White Blood Count 10.9 Red Blood Count 4.08 Hemoglobin 12.6 Hematocrit 36.6 Mean Corpuscular Volume 89.6 Mean Corpuscular Hemoglobin 30.9 Mean Corpuscular Hemoglobin 34.5 Concent Red Cell Distribution Width 15.2 Platelet Count 180 Mean Platelet Volume 7.9 Neutrophils (%) (Auto) 83.8 Lymphocytes (%) (Auto) 4.7 Monocytes (%) (Auto) 11.0 Eosinophils (%) (Auto) 0.5 Basophils (%) (Auto) 0.0 Neutrophils # (Auto) 9.1 Lymphocytes # (Auto) 0.5 Monocytes # (Auto) 1.2 Eosinophils # (Auto) 0.1 Basophils # (Auto) 0.0 CBC Comment DIFF FINAL Differential Comment Sodium Level 141 Potassium Level 4.4 Chloride Level 108 Carbon Dioxide Level 24.8 Anion Gap 8 Blood Urea Nitrogen 37 Creatinine 2.89 Estimat Glomerular Filtration 22 Rate Random Glucose 157 Calcium Level 8.3 Magnesium Level 1.9 Date/Time Procedure Status Source Growth 09/08/16 17:40 Urine Culture - Preliminary Resulted Urine Catheterized Urine NO GROWTH IN 24 HOURS. Shahnaz Nguyen MD Sep 09, 2016 17:32
[2016-09-09] MEDS: ATORVASTATIN 40 MG TAB PO SCH (20:50)
[2016-09-09] MEDS: ARTIFICIAL TEARS OPTH OINT 3.5 APPLIC/3.5 GM TUBO EACH EYE SCH (20:51)
[2016-09-10] VITALS (19 sets, daily range): BP systolic 93–193; BP diastolic 46–106; PULSE 78–106; RESP 20–28; TEMP 99.1–101.3; O2SAT 0–99
[2016-09-10] MEDS: RESP: ALBUTEROL 2.5 MG/IPRATROPIUM 0.5 MG NEB (SCH) NEB ×6 (00:44→19:44)
[2016-09-10] MEDS: CHLORHEXIDINE GLUCONATE 2 % 1 PACK (2 CLOTHS) TOP SCH (04:00)
[2016-09-10 04:54] LABS: AUTOMATED NEUTROPHIL # 8.5 TH/MM3 (1.8-7.7); BASOPHIL % 0.2 % (0.0-2.0); HEMATOCRIT 36.4 % (39.0-51.0); HEMO FLAGS DIFF FINAL; LYMPH % 4.7 % (9.0-44.0); LYMPHOCYTE # 0.5 TH/MM3 (1.0-4.8); MEAN CELL VOLUME 90.6 FL (80.0-100.0); MEAN CORPUSCULAR HEMOGLOBIN 30.1 PG (27.0-34.0); MEAN CORPUSCULAR HGB CONC 33.2 % (32.0-36.0); MONO % 11.9 % (0.0-8.0); NEUT % 83.2 % (16.0-70.0); PLATELET COUNT 140 TH/MM3 (150-450); RED BLOOD COUNT 4.02 MIL/MM3 (4.50-5.90); RED CELL DISTRIBUTION WIDTH 15.6 % (11.6-17.2); WHITE BLOOD COUNT 10.3 TH/MM3 (4.0-11.0)
[2016-09-10 05:13] LABS: ANION GAP 12 MEQ/L (5-15); AST (GOT) 227 U/L (15-37); BICARBONATE 20.3 MEQ/L (21.0-32.0); BLOOD UREA NITROGEN 44 MG/DL (7-18); CHLORIDE 112 MEQ/L (98-107); GLOMERULAR FILTRATION RATE 20 ML/MIN (>89); MAGNESIUM 1.9 MG/DL (1.5-2.5); SODIUM (NA) 144 MEQ/L (136-145)
[2016-09-10 05:16] LABS: ALKALINE PHOSPHATASE 49 U/L (45-117); ALT (GPT) 39 U/L (12-78); TOTAL BILIRUBIN ADULT 0.7 MG/DL (0.2-1.0)
[2016-09-10] MEDS: INSULIN NovoLIN REGULAR SUPPLEMENTAL SCALE SQ SCH ×5 (05:22→21:25)
[2016-09-10] MEDS: METOPROLOL TARTRATE 50 MG TAB PO SCH ×3 (05:23→20:29)
[2016-09-10 05:46] LABS: BLOOD GAS BASE EXCESS -5.9 mmol/L (-2-2); BLOOD GAS CARBOXYHEMOGLOBIN 1.5 % (0-4); BLOOD GAS HCO3 19 mmol/L (22-26); BLOOD GAS METHEMOGLOBIN 1.1 % (0-2); BLOOD GAS O2 HGB SATURATION 94 % (90-100); BLOOD GAS OXYGEN CONTENT 15.8 Vol % (12.0-20.0); BLOOD GAS PCO2 33 mmHg (38-42); BLOOD GAS PO2 88 mmHg (61-120); BLOOD GAS TOTAL HGB 11.9 G/DL (12.0-16.0); CRITICAL VALUE NO; DRAW SITE RT RADIAL; FIO2 25 %; NUMBER OF ARTERIAL PUNCTURES 1; OXYGEN DEVICE BIPAP; STAT NO; TEMP CORR TO 98.6; ULNAR PULSE PRESENT; VENT SETTINGS IPAP14/EPAP+7
--- NOTE | 2016-09-10 06:02 | RADRPT ---
EXAM DATE/TIME: 09/10/2016 05:06 [facility] COMPARISON: CHEST SINGLE AP, September 07, 2016, 22:21. INDICATIONS : Shortness of breath. MEDICAL HISTORY : Hypertension. SURGICAL HISTORY : CABG. Coronary artery stent. ENCOUNTER: Subsequent ACUITY: 4 - 6 days PAIN SCORE: Non-responsive. LOCATION: Bilateral chest FINDINGS: Cardiomegaly, sternotomy wires, NG tube noted. There is mild parenchymal airspace disease in the left mid to lower lung zone. CONCLUSION: Mild left lower lobe disease. Curtis Bartlett MD on September 10, 2016 at 6:00 Board Certified Radiologist. This report was verified electronically.
[2016-09-10] MEDS: ISOSORBIDE MONONITRATE 60 MG TAB PO SCH (06:14)
--- NOTE | 2016-09-10 07:49 | HHI.CCPN ---
Subjective Remarks/Hospital Course 66-year-old gentleman with a history of coronary artery disease status post CABG underwent emergent cardiac catheterization by Dr. Cummins. Postprocedure his course is complicated by aphasia and right-sided weakness. 09/08 Patient was on BIPAP 14/7 with FIO2 25%. On Precedex and heparin drips. CT brain showed last night showed no acute process. Impela was removed this morning by Dr. Cummins. T:99.9 Renal function improving with Cr:2.5 from 3.0 hyperkalemic with K 6.1 09/09: Overnight remained on BiPAP predominantly for sleep apnea. Intermittently follows commands. Will check MRI of the brain today. Creatinine slightly worsened to 2.8. Consulted nephrology, hyperkalemia resolved 09/10: Remains on BiPAP, some interval worsening of respiratory status. Patient is more tachypneic chest x-ray shows left lower lobe infiltrate .Currently sedated with 0.5 g per KG per hour of Precedex. I will discontinue Precedex. MRI brain shows acute infarct left sylvian region. Creatinine slightly worse at 3. Low-grade fever Tmax 100.2, send blood and sputum culture and start Zosyn Objective Vital Signs Date Time Temp Pulse Resp B/P Pulse Ox O2 Delivery O2 Flow Rate FiO2 09/10/16 03:34 99 25 09/10/16 03:18 100.2 84 25 149/85 09/10/16 03:18 Bi-Pap 09/09/16 15:40 4.00 Intake and Output 09/09/16 09/09/16 09/10/16 08:00 16:00 00:00 Intake Total 1008 ml 1249 ml Output Total 650 ml 580 ml Balance 358 ml 669 ml Result Diagram: 09/10/16 0351 09/10/16 0351 Other Results Laboratory Tests Test 09/10/16 05:30 Blood Gas Puncture Site RT RADIAL Blood Gas Patient Temperature 98.6 Blood Gas HCO3 19 mmol/L (22-26) Blood Gas Base Excess -5.9 mmol/L (-2-2) Blood Gas Oxygen Saturation 94 % (90-100) Arterial Blood pH 7.37 (7.380-7.420) Arterial Blood Partial 33 mmHg (38-42) Pressure CO2 Arterial Blood Partial 88 mmHg Pressure O2 (61-120) Arterial Blood Oxygen Content 15.8 Vol % (12.0-20.0) Arterial Blood 1.5 % (0-4) Carboxyhemoglobin Arterial Blood Methemoglobin 1.1 % (0-2) Blood Gas Hemoglobin 11.9 G/DL (12.0-16.0) Oxygen Delivery Device BIPAP Blood Gas Ventilator Setting IPAP14/EPAP+7 Blood Gas Inspired Oxygen 25 % Imaging Last Impressions Head CT 09/07/16 0000 Signed Impressions: Service Date/Time: Wednesday, September 07, 2016 22:08 - CONCLUSION: No acute intracranial abnormality. Sinus disease and supraorbital soft tissue swelling. Michael Vasquez MD Chest X-Ray 09/07/16 0000 Signed Impressions: Service Date/Time: Wednesday, September 07, 2016 22:21 - CONCLUSION: Impella implant appears grossly appropriately positioned on this one view study. Mild failure. Michael Vasquez MD Objective Remarks GENERAL: Well-nourished, well-developed patient. Aphasic. On BiPAP SKIN: Warm and dry. HEAD: Normocephalic. EYES: No scleral icterus. No injection or drainage. NECK: Supple, trachea midline. No JVD or lymphadenopathy. CARDIOVASCULAR: Regular rate and rhythm without murmurs, gallops, or rubs. RESPIRATORY: Breath sounds equal bilaterally. No accessory muscle use. Few basilar crackles heard GASTROINTESTINAL: Abdomen soft, non-tender, nondistended. MUSCULOSKELETAL: No cyanosis, or edema. BACK: Nontender without obvious deformity. No CVA tenderness. EXTREMITIES: Sedated with Precedex, right-sided weakness, but following commands on right upper extremity. Encephalopathic today A/P Problem List: (1) Acute ischemic left MCA stroke ICD Code: I63.512 Status: Acute (2) Acute renal failure ICD Code: N17.9 Status: Acute (3) CHF (congestive heart failure), NYHA class III ICD Code: I50.9 Status: Acute (4) Coronary artery disease involving [place] heart ICD Code: I25.10 Status: Chronic (5) HTN (hypertension) ICD Code: I10 Status: Acute (6) CKD (chronic kidney disease) ICD Code: N18.9 Status: Acute Assessment and Plan ASSESSMENT Acute left MCA stroke (Aphasia with right-sided weakness) Acute encephalopathy NSTEMI/CAD Respiratory failure/obstructive sleep apnea HCAP Acute on chronic kidney disease Hyperkalemia DM HTN LEONARD Hyperlipidemia Plan Neuro: Monitor neuro status and avoid sedatives. DC Precedex drip. Use Ativan when necessary for agitation CT brain 09/07: No acute disease, Neuro is following- Cr. Nguyen. MRI brain 09/09/16-acute left sylvian region infarct Pulm: Continue with oxygen keep sat >90% Bronchodilators, NIPPV PRN for resp distress and at night for LEONARD CV: Monitor HR and BP keep MAP>65mmHg Continue with ASA, Plavix, Imdur 60mg daily, Lopressor 50mg q8. s/p cardiac cath 09/07 showed multivessel disease with 2/6 grafts patent, EF 40%. s/p PCI with stents of the saphenous venous graft to the first diagonal artery. s/p removal Impella 09/08. Cardiology- Dr. Cummins : Monitor renal function, I/O's, avoid nephrotoxins. s/p treatment of hyperkalemia with IV insulin, bicarb, rafal gluconate, Kayexalate Renal function worsening Cr: 3 today. UO 1200 ml in 24 hours Renal-Dr. Naidu GI: Speech eval, failed swallow. Continue NG tube. On Pepcid IV daily ID: Monitor for signs of infections ( Fever, WBC) check UA with cx if indicated Chest x-ray today shows left lower lobe infiltrate. Start Zosyn 3.375 g every 8 hours. Send sputum and blood culture Heme: Monitor CBC Endo: SSI with accuchecks for glycemic control GI prophylaxis- on Pepcid DVT prophylaxis- SCD, Heparin 5000 units subcutaneous every 12 CCT 30 Problem Qualifiers (1) Acute renal failure: Qualified Code: N17.0 - Acute renal failure with tubular necrosis Krishna Rodriguez MD Sep 10, 2016 07:49
[2016-09-10 08:34] LABS: BLOOD GAS BASE EXCESS -4.2 mmol/L (-2-2); BLOOD GAS CARBOXYHEMOGLOBIN 1.6 % (0-4); BLOOD GAS HCO3 21 mmol/L (22-26); BLOOD GAS METHEMOGLOBIN 1.1 % (0-2); BLOOD GAS O2 HGB SATURATION 96 % (90-100); BLOOD GAS OXYGEN CONTENT 15.8 Vol % (12.0-20.0); BLOOD GAS PCO2 38 mmHg (38-42); BLOOD GAS PO2 123 mmHg (61-120); BLOOD GAS TOTAL HGB 11.6 G/DL (12.0-16.0); CRITICAL VALUE NO; DRAW SITE RT RADIAL; FIO2 2 %; NUMBER OF ARTERIAL PUNCTURES 1; OXYGEN DEVICE NASAL CANNULA; STAT YES; TEMP CORR TO 98.6; ULNAR PULSE PRESENT
[2016-09-10] MEDS: HEPARIN SODIUM - SQ 10,000 UNITS/ML VIAL SQ SCH ×2 (08:53→20:28)
[2016-09-10] MEDS: SODIUM CHLORIDE 0.9% FLUSH 5 ML FLUSH IV FLUSH SCH ×2 (08:54→20:29)
[2016-09-10] MEDS: FAMOTIDINE 20 MG/2 ML VIAL IV PUSH SCH (08:54)
[2016-09-10] MEDS: ARTIFICIAL TEARS OPTH OINT 3.5 APPLIC/3.5 GM TUBO EACH EYE SCH ×2 (08:54→20:30)
--- NOTE | 2016-09-10 09:08 | HHI.PR ---
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 No acute new neuro events reported Active Medications Current Medications Medications (Trade) Dose Ordered Sig/Eric Route Start Time Stop Time Status Last Admin (NS 1000 ml Inj) 1,000 ml @ 30 mls/hr Q24H IV 09/07/16 14:00 (Ecotrin Ec) 81 mg DAILY PO 09/08/16 09:00 09/09/16 09:30 (Lipitor) 40 mg HS PO 09/07/16 21:30 09/09/16 20:50 (Plavix) 75 mg DAILY PO 09/08/16 09:00 09/09/16 09:30 (Imdur) 60 mg DAILY@07 PO 09/08/16 07:00 09/10/16 06:14 (NS Flush) 2 ml UNSCH PRN IV FLUSH 09/07/16 21:30 (NS Flush) 2 ml BID IV FLUSH 09/08/16 09:00 09/10/16 08:54 (Tylenol) 650 mg Q6H PRN PO 09/07/16 21:30 (Morphine Inj) 2 mg Q2H PRN IV 09/07/16 21:30 09/09/16 01:00 (Pepcid Inj) 20 mg Q24H IV PUSH 09/08/16 09:00 09/10/16 08:54 (Ativan Inj) 0.5 mg Q2HR PRN IV 09/07/16 21:30 09/08/16 23:00 (Zofran Inj) 4 mg Q6H PRN IV 09/07/16 21:30 09/08/16 22:00 (Reglan Inj) 5 mg Q6H PRN IV 09/07/16 21:30 (Colace) 100 mg BID PO 09/08/16 09:00 09/09/16 20:50 Miscellaneous Information 1 Q361D XX 09/07/16 21:30 (Chlorhexidine 2% Cloth) 3 pack Taper DAILY@04 [facility] 09/08/16 04:00 09/04/17 03:59 09/10/16 04:00 (Chlorhexidine 2% Cloth) 3 pack UNSCH PRN TOP 09/07/16 21:30 (Apresoline Inj) 20 mg Q4H PRN IV PUSH 09/08/16 04:30 09/08/16 13:31 (D50w (Vial) Inj) 25 ml UNSCH PRN IV PUSH 09/08/16 12:45 (Glucagon Inj) 1 mg UNSCH PRN OTHER 09/08/16 12:45 (NovoLIN R SUPPLEMENTAL SCALE) 1 Q4H SQ 09/08/16 13:00 09/10/16 08:53 (Lopressor) 50 mg Q8H PO 09/09/16 14:00 09/10/16 05:23 (Heparin Inj) 5,000 units Q12HR SQ 09/09/16 09:00 09/10/16 08:53 Artificial Tears 1 applic 1 applic BID EACH EYE 09/09/16 21:00 09/10/16 08:54 (Zosyn 3.375 Gm Premix) 50 ml @ 100 mls/hr Q8H IV 09/10/16 09:00 Allergies Allergies Coded Allergies No Known Allergies (Verified09/07/16) Exam I&O / VS 09/09/16 09/09/16 09/10/16 15:00 23:00 07:00 Intake Total 1249 ml 1420 ml Output Total 580 ml 620 ml Balance 669 ml 800 ml Intake Oral 0 ml IV Total 1249 ml 1360 ml Other 60 ml Output Urine Total 580 ml 620 ml Gastric Drainage Total 0 ml 0 ml # Bowel Movements 0 0 Vital Signs Date Time Temp Pulse Resp B/P Pulse Ox O2 Delivery O2 Flow Rate FiO2 09/10/16 08:59 94 Nasal Cannula 2.00 09/10/16 08:55 88 21 09/10/16 08:00 100.0 85 28 128/84 98 09/10/16 08:00 96 21 09/10/16 08:00 98 Nasal Cannula 4.00 09/10/16 08:00 88 09/10/16 07:45 98 25 09/10/16 03:34 99 25 09/10/16 03:18 100.2 84 25 149/85 98 09/10/16 03:18 78 09/10/16 03:18 98 Bi-Pap 25 09/10/16 00:58 99 25 09/09/16 23:04 98 Bi-Pap 25 09/09/16 23:04 78 09/09/16 23:04 98.1 78 25 138/87 98 09/09/16 22:36 97 25 09/09/16 20:17 99 40 09/09/16 20:00 99 Bi-Pap 30 09/09/16 20:00 99.3 87 28 127/83 99 09/09/16 20:00 115 09/09/16 15:41 97 40 09/09/16 15:40 98 Nasal Cannula 4.00 09/09/16 15:00 101 09/09/16 15:00 99.8 101 20 127/83 99 09/09/16 15:00 99 Nasal Cannula 4.00 09/09/16 11:00 93 Nasal Cannula 4.00 09/09/16 11:00 99.0 126 22 128/59 93 09/09/16 11:00 126 Objective Radiology Results Last 48 hours Impressions Chest X-Ray 09/10/16 0600 Signed Impressions: Service Date/Time: Saturday, September 10, 2016 05:06 - CONCLUSION: Mild left lower lobe disease. Curtis Bartlett MD Brain MRI 09/09/16 0000 Signed Impressions: Service Date/Time: August 16:36 - CONCLUSION: 1. Findings demonstrate an acute infarction in the left sylvian region, nonhemorrhagic. 2. Small air-fluid level right maxillary sinus and mild bilateral ethmoid sinus disease. Suresh Diaz MD Micro and Labs Laboratory Tests Test 09/10/16 09/10/16 09/10/16 03:51 05:30 08:20 White Blood Count 10.3 Red Blood Count 4.02 Hemoglobin 12.1 Hematocrit 36.4 Mean Corpuscular Volume 90.6 Mean Corpuscular Hemoglobin 30.1 Mean Corpuscular Hemoglobin 33.2 Concent Red Cell Distribution Width 15.6 Platelet Count 140 Mean Platelet Volume 8.5 Neutrophils (%) (Auto) 83.2 Lymphocytes (%) (Auto) 4.7 Monocytes (%) (Auto) 11.9 Eosinophils (%) (Auto) 0.0 Basophils (%) (Auto) 0.2 Neutrophils # (Auto) 8.5 Lymphocytes # (Auto) 0.5 Monocytes # (Auto) 1.2 Eosinophils # (Auto) 0.0 Basophils # (Auto) 0.0 CBC Comment DIFF FINAL Differential Comment Sodium Level 144 Potassium Level 5.0 Chloride Level 112 Carbon Dioxide Level 20.3 Anion Gap 12 Blood Urea Nitrogen 44 Creatinine 3.07 Estimat Glomerular Filtration 20 Rate Random Glucose 196 Calcium Level 8.5 Magnesium Level 1.9 Total Bilirubin 0.7 Aspartate Amino Transf 227 (AST/SGOT) Alanine Aminotransferase 39 (ALT/SGPT) Alkaline Phosphatase 49 Total Protein 7.1 Albumin 2.9 Blood Gas Puncture Site RT RADIAL RT RADIAL Blood Gas Patient Temperature 98.6 98.6 Blood Gas HCO3 19 21 Blood Gas Base Excess -5.9 -4.2 Blood Gas Oxygen Saturation 94 96 Arterial Blood pH 7.37 7.35 Arterial Blood Partial 33 38 Pressure CO2 Arterial Blood Partial 88 123 Pressure O2 Arterial Blood Oxygen Content 15.8 15.8 Arterial Blood 1.5 1.6 Carboxyhemoglobin Arterial Blood Methemoglobin 1.1 1.1 Blood Gas Hemoglobin 11.9 11.6 Oxygen Delivery Device BIPAP NASAL CANNULA Blood Gas Ventilator Setting IPAP14/EPAP+7 Blood Gas Inspired Oxygen 25 2 Date/Time Procedure Status Source Growth 09/08/16 17:40 Urine Culture - Preliminary Resulted Urine Catheterized Urine NO GROWTH IN 24 HOURS. Shahnaz Nguyen MD Sep 10, 2016 09:08
[2016-09-10] MEDS: PIPERACIL-TAZO 3.375 GM PREMIX 50 ML IV SCH ×2 (09:18→17:30)
[2016-09-10] MEDS: hydrALAZINE HCL 20 MG/ML VIAL IV PUSH PRN (11:21)
[2016-09-10] MEDS ORDERED: SUCCINYLCHOLINE CHLORIDE 200 MG/10 ML VIAL ONE (11:24)
[2016-09-10] MEDS ORDERED: ETOMIDATE 20 MG/10 ML VIAL ONE (11:26)
[2016-09-10] MEDS ORDERED: MIDAZOLAM HCL 5 MG/ML VIAL (1 ML) ONE (11:27)
[2016-09-10] MEDS ORDERED: PROPOFOL 1000 MG/100 ML INJ 100 ML ONE (11:34)
--- NOTE | 2016-09-10 11:43 | PD.PROCEDR ---
Procedure Note Procedure After the risks and benefits were discussed the following procedure was performed: INTUBATION: The patient was put in optimal position for the procedure. Rapid sequence intubation was initiated by me using 20 milligrams of etomidate IV and 5 milligrams of Versed IV. NM blockade with 100 mg IV Rocuronium. DL with Mac 4 blade Grade 3 view single attempt. The patient was intubated with a 8.0 cuffed endotracheal tube. Tube placement was confirmed by visualization of the tube and balloon passing through the cords, capnometry and subsequent chest x-ray. Breath sounds were equal and well aerated bilaterally postintubation. No breath sounds over stomach. Patient tolerated procedure well. Krishna Rodriguez MD Sep 10, 2016 11:43
[2016-09-10] MEDS ORDERED: fentaNYL DRIP 250 ML IV SCH (11:45)
[2016-09-10] MEDS: PROPOFOL 1000 MG/100 ML INJ 100 ML IV SCH ×2 (11:51→17:29)
[2016-09-10] MEDS: CLOPIDOGREL 75 MG TAB PO SCH (11:57)
[2016-09-10] MEDS: ASPIRIN EC 81 MG TABEC PO SCH (11:57)
[2016-09-10] MEDS: DOCUSATE SODIUM 100 MG CAP PO SCH ×2 (11:57→20:29)
--- NOTE | 2016-09-10 11:57 | PD.CARD.PN ---
Subjective Subjective Remarks Still aphasic, confused, suctioned frequently due to excessive secretions, no cardiac symptoms Objective Medications Current Medications Medications (Trade) Dose Ordered Sig/Eric Route Start Time Stop Time Status Last Admin (NS 1000 ml Inj) 1,000 ml @ 30 mls/hr Q24H IV 09/07/16 14:00 (Ecotrin Ec) 81 mg DAILY PO 09/08/16 09:00 09/09/16 09:30 (Lipitor) 40 mg HS PO 09/07/16 21:30 09/09/16 20:50 (Plavix) 75 mg DAILY PO 09/08/16 09:00 09/09/16 09:30 (Imdur) 60 mg DAILY@07 PO 09/08/16 07:00 09/10/16 06:14 (NS Flush) 2 ml UNSCH PRN IV FLUSH 09/07/16 21:30 (NS Flush) 2 ml BID IV FLUSH 09/08/16 09:00 09/10/16 08:54 (Tylenol) 650 mg Q6H PRN PO 09/07/16 21:30 (Morphine Inj) 2 mg Q2H PRN IV 09/07/16 21:30 09/09/16 01:00 (Pepcid Inj) 20 mg Q24H IV PUSH 09/08/16 09:00 09/10/16 08:54 (Ativan Inj) 0.5 mg Q2HR PRN IV 09/07/16 21:30 09/08/16 23:00 (Zofran Inj) 4 mg Q6H PRN IV 09/07/16 21:30 09/08/16 22:00 (Reglan Inj) 5 mg Q6H PRN IV 09/07/16 21:30 (Colace) 100 mg BID PO 09/08/16 09:00 09/09/16 20:50 Miscellaneous Information 1 Q361D XX 09/07/16 21:30 (Chlorhexidine 2% Cloth) 3 pack Taper DAILY@04 [facility] 09/08/16 04:00 09/04/17 03:59 09/10/16 04:00 (Chlorhexidine 2% Cloth) 3 pack UNSCH PRN TOP 09/07/16 21:30 (Apresoline Inj) 20 mg Q4H PRN IV PUSH 09/08/16 04:30 09/10/16 11:21 (D50w (Vial) Inj) 25 ml UNSCH PRN IV PUSH 09/08/16 12:45 (Glucagon Inj) 1 mg UNSCH PRN OTHER 09/08/16 12:45 (NovoLIN R SUPPLEMENTAL SCALE) 1 Q4H SQ 09/08/16 13:00 09/10/16 08:53 (Lopressor) 50 mg Q8H PO 09/09/16 14:00 09/10/16 05:23 (Heparin Inj) 5,000 units Q12HR SQ 09/09/16 09:00 09/10/16 08:53 Artificial Tears 1 applic 1 applic BID EACH EYE 09/09/16 21:00 09/10/16 08:54 (Zosyn 3.375 Gm Premix) 50 ml @ 100 mls/hr Q8H IV 09/10/16 09:00 09/10/16 09:18 Chlorhexidine Gluconate 15 ml 15 ml BID@08,20 MT 09/10/16 20:00 Propofol 100 ml @ 0 mls/hr TITRATE IV 09/10/16 11:45 (fentaNYL DRIP) 250 ml @ 0 mls/hr TITRATE IV 09/10/16 11:45 Vital Signs / I&O Vital Signs Date Time Temp Pulse Resp B/P Pulse Ox O2 Delivery O2 Flow Rate FiO2 09/10/16 10:44 97 Non-Rebreather 100 09/10/16 10:44 86 Nasal Cannula 6.00 09/10/16 10:33 98 Nasal Cannula 6.00 09/10/16 08:59 94 Nasal Cannula 2.00 09/10/16 08:55 88 21 09/10/16 08:00 100.0 85 28 128/84 98 09/10/16 08:00 96 21 09/10/16 08:00 98 Nasal Cannula 4.00 09/10/16 08:00 88 09/10/16 07:45 98 25 09/10/16 03:34 99 25 09/10/16 03:18 100.2 84 25 149/85 98 09/10/16 03:18 78 09/10/16 03:18 98 Bi-Pap 25 09/10/16 00:58 99 25 09/09/16 23:04 98 Bi-Pap 25 09/09/16 23:04 78 09/09/16 23:04 98.1 78 25 138/87 98 09/09/16 22:36 97 25 09/09/16 20:17 99 40 09/09/16 20:00 99 Bi-Pap 30 09/09/16 20:00 99.3 87 28 127/83 99 09/09/16 20:00 115 09/09/16 15:41 97 40 09/09/16 15:40 98 Nasal Cannula 4.00 09/09/16 15:00 101 09/09/16 15:00 99.8 101 20 127/83 99 09/09/16 15:00 99 Nasal Cannula 4.00 I/O 09/09/16 09/09/16 09/09/16 09/10/16 09/10/16 09/10/16 07:00 15:00 23:00 07:00 15:00 23:00 Intake Total 1008 ml 1249 ml 1420 ml Output Total 650 ml 580 ml 620 ml Balance 358 ml 669 ml 800 ml Intake Oral 0 ml 0 ml IV Total 1008 ml 1249 ml 1360 ml Other 60 ml Output Urine Total 650 ml 580 ml 620 ml Gastric Drainage Total 0 ml 0 ml # Bowel Movements 0 0 0 Physical Exam GENERAL: In NAD SKIN: Warm and dry. HEAD: Normocephalic. Facial asymetry. EYES: No scleral icterus. No injection or drainage. NECK: Supple, trachea midline. No JVD or lymphadenopathy. CARDIOVASCULAR: Regular rate and rhythm without murmurs, gallops, or rubs. RESPIRATORY: Breath sounds equal bilaterally. No accessory muscle use. GASTROINTESTINAL: Abdomen soft, non-tender, nondistended, obese MUSCULOSKELETAL: No cyanosis, or edema. Groins stable. NEURO: aphasic, confused Laboratory Laboratory Tests Test 09/10/16 09/10/16 09/10/16 03:51 05:30 08:20 White Blood Count 10.3 TH/MM3 Red Blood Count 4.02 MIL/MM3 Hemoglobin 12.1 GM/DL Hematocrit 36.4 % Mean Corpuscular Volume 90.6 FL Mean Corpuscular Hemoglobin 30.1 PG Mean Corpuscular Hemoglobin 33.2 % Concent Red Cell Distribution Width 15.6 % Platelet Count 140 TH/MM3 Mean Platelet Volume 8.5 FL Neutrophils (%) (Auto) 83.2 % Lymphocytes (%) (Auto) 4.7 % Monocytes (%) (Auto) 11.9 % Eosinophils (%) (Auto) 0.0 % Basophils (%) (Auto) 0.2 % Neutrophils # (Auto) 8.5 TH/MM3 Lymphocytes # (Auto) 0.5 TH/MM3 Monocytes # (Auto) 1.2 TH/MM3 Eosinophils # (Auto) 0.0 TH/MM3 Basophils # (Auto) 0.0 TH/MM3 CBC Comment DIFF FINAL Differential Comment Sodium Level 144 MEQ/L Potassium Level 5.0 MEQ/L Chloride Level 112 MEQ/L Carbon Dioxide Level 20.3 MEQ/L Anion Gap 12 MEQ/L Blood Urea Nitrogen 44 MG/DL Creatinine 3.07 MG/DL Estimat Glomerular Filtration 20 ML/MIN Rate Random Glucose 196 MG/DL Calcium Level 8.5 MG/DL Magnesium Level 1.9 MG/DL Total Bilirubin 0.7 MG/DL Aspartate Amino Transf 227 U/L (AST/SGOT) Alanine Aminotransferase 39 U/L (ALT/SGPT) Alkaline Phosphatase 49 U/L Total Protein 7.1 GM/DL Albumin 2.9 GM/DL Blood Gas Puncture Site RT RADIAL RT RADIAL Blood Gas Patient Temperature 98.6 98.6 Blood Gas HCO3 19 mmol/L 21 mmol/L Blood Gas Base Excess -5.9 mmol/L -4.2 mmol/L Blood Gas Oxygen Saturation 94 % 96 % Arterial Blood pH 7.37 7.35 Arterial Blood Partial 33 mmHg 38 mmHg Pressure CO2 Arterial Blood Partial 88 mmHg 123 mmHg Pressure O2 Arterial Blood Oxygen Content 15.8 Vol % 15.8 Vol % Arterial Blood 1.5 % 1.6 % Carboxyhemoglobin Arterial Blood Methemoglobin 1.1 % 1.1 % Blood Gas Hemoglobin 11.9 G/DL 11.6 G/DL Oxygen Delivery Device BIPAP NASAL CANNULA Blood Gas Ventilator Setting IPAP14/EPAP+7 Blood Gas Inspired Oxygen 25 % 2 % Imaging Last Impressions Chest X-Ray 09/10/16 0600 Signed Impressions: Service Date/Time: Saturday, September 10, 2016 05:06 - CONCLUSION: Mild left lower lobe disease. Curtis Bartlett MD Brain MRI 09/09/16 0000 Signed Impressions: Service Date/Time: August 16:36 - CONCLUSION: 1. Findings demonstrate an acute infarction in the left sylvian region, nonhemorrhagic. 2. Small air-fluid level right maxillary sinus and mild bilateral ethmoid sinus disease. Suresh Diaz MD Renal Ultrasound 09/08/16 0000 Signed Impressions: Service Date/Time: Thursday, September 08, 2016 16:04 - CONCLUSION: Large 6.3 cm cyst lower pole laterally left kidney. No evidence of hydronephrosis or obstructive uropathy.. Christian Cooper MD Head CT 09/07/16 0000 Signed Impressions: Service Date/Time: Wednesday, September 07, 2016 22:08 - CONCLUSION: No acute intracranial abnormality. Sinus disease and supraorbital soft tissue swelling. Michael Vasquez MD Assessment and Plan Problem List: (1) Unstable angina (2) CAD (coronary artery disease) of bypass graft (3) CHF (congestive heart failure), NYHA class II (4) Cardiomyopathy, ischemic (5) Chronic kidney disease (6) Suspected cerebrovascular accident (7) Abnormal nuclear stress test Assessment and Plan Continue ICU monitoring. Continue Plavix and ASA per NG to prevent stent thrombosis. BP controlled. Neurology evaluation and management for CVA confirmed by MRI. No evidence of ICH. Groins remain stable. Monitor renal fx. No new cardiac issues. Problem Qualifiers (1) Chronic kidney disease: Qualified Code: N18.3 - Chronic kidney disease, stage 3 (moderate) Martha Cummins MD Sep 10, 2016 11:57
[2016-09-10 12:35] LABS: BLOOD GAS BASE EXCESS -5.7 mmol/L (-2-2); BLOOD GAS CARBOXYHEMOGLOBIN 1.4 % (0-4); BLOOD GAS HCO3 20 mmol/L (22-26); BLOOD GAS METHEMOGLOBIN 1.2 % (0-2); BLOOD GAS O2 HGB SATURATION 96 % (90-100); BLOOD GAS OXYGEN CONTENT 18.1 Vol % (12.0-20.0); BLOOD GAS PCO2 41 mmHg (38-42); BLOOD GAS PO2 130 mmHg (61-120); BLOOD GAS TOTAL HGB 13.3 G/DL (12.0-16.0); CRITICAL VALUE NO; DRAW SITE RT RADIAL; FIO2 50 %; NUMBER OF ARTERIAL PUNCTURES 1; OXYGEN DEVICE VENTILATOR; TEMP CORR TO 98.6; VENT SETTINGS PRVC/AC
[2016-09-10 12:36] LABS: STAT NO; ULNAR PULSE PRESENT
--- NOTE | 2016-09-10 12:47 | HHI.NPPN ---
Subjective History of Present Illness 66-year-old with acute renal failure and chronic kidney disease status post stent coronary artery Additional Remarks Reintubated Objective Data Data 09/09/16 09/10/16 18:59 06:59 Intake Total 1249 ml 1420 ml Output Total 580 ml 620 ml Balance 669 ml 800 ml Intake Oral 0 ml IV Total 1249 ml 1360 ml Other 60 ml Output Urine Total 580 ml 620 ml Gastric Drainage Total 0 ml 0 ml # Bowel Movements 0 0 Vital Signs Date Time Temp Pulse Resp B/P Pulse Ox O2 Delivery O2 Flow Rate FiO2 09/10/16 11:40 97 50 09/10/16 11:20 50 09/10/16 11:00 95 Non-Rebreather 09/10/16 11:00 106 09/10/16 11:00 100.1 106 28 193/106 98 09/10/16 10:44 97 Non-Rebreather 100 09/10/16 10:44 86 Nasal Cannula 6.00 09/10/16 10:33 98 Nasal Cannula 6.00 09/10/16 08:59 94 Nasal Cannula 2.00 09/10/16 08:55 88 21 09/10/16 08:00 100.0 85 28 128/84 98 09/10/16 08:00 96 21 09/10/16 08:00 98 Nasal Cannula 4.00 09/10/16 08:00 88 09/10/16 07:45 98 25 09/10/16 03:34 99 25 09/10/16 03:18 100.2 84 25 149/85 98 09/10/16 03:18 78 09/10/16 03:18 98 Bi-Pap 25 09/10/16 00:58 99 25 09/09/16 23:04 98 Bi-Pap 25 09/09/16 23:04 78 09/09/16 23:04 98.1 78 25 138/87 98 09/09/16 22:36 97 25 09/09/16 20:17 99 40 09/09/16 20:00 99 Bi-Pap 30 09/09/16 20:00 99.3 87 28 127/83 99 09/09/16 20:00 115 09/09/16 15:41 97 40 09/09/16 15:40 98 Nasal Cannula 4.00 09/09/16 15:00 101 09/09/16 15:00 99.8 101 20 127/83 99 09/09/16 15:00 99 Nasal Cannula 4.00 -: 09/10/16 0351 09/10/16 0351 Microbiology 09/10/16 Gram Stain - Final, Resulted 09/10/16 Sputum Culture, Resulted Pending 09/10/16 Aerobic Blood Culture, Received Pending 09/10/16 Anaerobic Blood Culture, Received Pending 09/10/16 Aerobic Blood Culture, Received Pending 09/10/16 Anaerobic Blood Culture, Received Pending Physical Exam General Appearance: Well Developed Pulmonary Resp Exam: Diminished Breath Sounds Cardiology CV Exam: Regular Gastrointestinal/Abdomen GI Exam: Soft, Non-Tender, Bowel Sounds Present Extremeties Extremities Exam: Moderate Edema Assessment/Plan Problem List: (1) Acute renal failure Plan: Patient has received heart catheterization He has elevation in the creatinine and he is nonoliguric I will place him on Bumex drip at 0.5 mg R Follow BMP Continue to monitor (2) Hyperkalemia Plan: Resolved (3) Chronic kidney disease Plan: He has stage III chronic kidney disease due to diabetic (4) CHF (congestive heart failure), NYHA class III Plan: Continue to monitor for improvement (5) Coronary artery disease involving [place] heart Plan: Review his bypass and stents (6) Hypertension, essential, benign Plan: Monitor blood pressure (7) Diabetes mellitus, type II Plan: Monitor blood glucose (8) UTI (lower urinary tract infection) Plan: Group D enterococcus less than 10,000, on Zosyn Problem Qualifiers (1) Acute renal failure: Qualified Code: N17.0 - Acute renal failure with tubular necrosis (2) Chronic kidney disease: Qualified Code: N18.3 - Chronic kidney disease, stage 3 (moderate) Marisol Naidu MD Sep 10, 2016 12:47
[2016-09-10] MEDS ORDERED: ROCURONIUM INJ 50 MG/5 ML VIAL IV ONE (13:00)
--- NOTE | 2016-09-10 13:19 | RADRPT ---
EXAM DATE/TIME: 09/10/2016 12:15 [facility] COMPARISON: CHEST SINGLE AP, September 10, 2016, 5:06. INDICATIONS : Evaluate heart and lungs post intubation for placement. MEDICAL HISTORY : Hypertension. SURGICAL HISTORY : CABG. Stent ENCOUNTER: Subsequent ACUITY: 1 day PAIN SCORE: Non-responsive. LOCATION: chest FINDINGS: The ET tube appears to be in good position. The tip is at the level of the thoracic aortic arch. Ther e is an NG tube in place. There is no pneumothorax. The lungs are grossly clear. The heart size is en larged. No significant change compared to the prior study. CONCLUSION: ET tube in good position. No pneumothorax. Joey Leigh MD on September 10, 2016 at 13:17 Board Certified Radiologist. This report was verified electronically.
[2016-09-10] MEDS: NS 1000P @30 MLS/HR (KVO) IV SCH (14:00)
[2016-09-10] MEDS ORDERED: Vancomycin Consult Pharmacy 1 EA OTHER SCH (14:30)
[2016-09-10] MEDS ORDERED: BUMETANIDE INJ 100 ML IV SCH (14:45)
[2016-09-10] MEDS ORDERED: SODIUM CHLORID 0.9% IV ONE (16:00)
[2016-09-10] MEDS ORDERED: VANCOMYCIN IV ONE (16:00)
[2016-09-10] MEDS ORDERED: VANCOMYCIN INJ 1,750 MG in SODIUM CHLORID 0.9% 500 ML INJ 500 ML IV ONE (16:00)
[2016-09-10] MEDS ORDERED: ALBUMIN HUMAN 25% 25 GM/100 ML BAGP IV ONE ×2 (16:46→17:30)
--- NOTE | 2016-09-10 17:18 | RADRPT ---
EXAM DATE/TIME: 09/10/2016 09:37 [facility] COMPARISON: No previous studies available for comparison. INDICATIONS : Stroke. MEDICAL HISTORY : Hypercholesterolemia. Gastroesophageal reflux disease. Hypertension. Cerebrovascular accident. Heart attack. Sleep apnea. Diverticulitis. Enlarged prostate. Arthritis. Diabetes. SURGICAL HISTORY : CABG. Coronary artery stent. Nasal surgery. Bilateral knee replacement. Right eye cataract removal. ENCOUNTER: Initial ACUITY: 1 day PAIN SCORE: 0/10 LOCATION: Bilateral neck PEAK SYSTOLIC VELOCITIES (cm/sec): CCA: Right: 161 ECA: Right: 108 Elevated flow velocities and ICA/CCA ratios have been found to correlate with increased degrees of vessel stenosis, calculated as percentage of diameter relative to a normal segment of distal ICA/CCA FINDINGS: RIGHT CAROTID: Patient was agitated and could not complete exam. There is some calcifications in the right common ca rotid artery at the bifurcation. LEFT CAROTID: Not visualized VERTEBRAL ARTERIES: Not visualized MISCELLANEOUS: None. CONCLUSION: Nondiagnostic examination. Joey Leigh MD on September 10, 2016 at 17:15 Board Certified Radiologist. This report was verified electronically.
[2016-09-10] MEDS: ACETAMINOPHEN 325 MG TAB PO PRN (20:29)
[2016-09-10] MEDS: ATORVASTATIN 40 MG TAB PO SCH (20:29)
[2016-09-10] MEDS: CHLORHEXIDINE 0.12% (ORAL KIT) 15 ML CUP MT SCH (20:32)
[2016-09-11] VITALS (16 sets, daily range): BP systolic 120–176; BP diastolic 72–99; PULSE 65–110; RESP 18–24; TEMP 98.3–100; O2SAT 22–100
[2016-09-11] MEDS: PIPERACIL-TAZO 3.375 GM PREMIX 50 ML IV SCH ×3 (01:00→17:04)
[2016-09-11] MEDS: INSULIN NovoLIN REGULAR SUPPLEMENTAL SCALE SQ SCH ×5 (01:00→20:48)
[2016-09-11] MEDS: RESP: ALBUTEROL 2.5 MG/IPRATROPIUM 0.5 MG NEB (SCH) NEB ×7 (01:06→23:31)
[2016-09-11] MEDS: CHLORHEXIDINE GLUCONATE 2 % 1 PACK (2 CLOTHS) TOP SCH (04:00)
--- NOTE | 2016-09-11 04:40 | RADRPT ---
EXAM DATE/TIME: 09/11/2016 03:54 [facility] COMPARISON: No previous studies available for comparison. INDICATIONS : Shortness of breath, possible pulmonary disease. MEDICAL HISTORY : Hypertension. SURGICAL HISTORY : CABG. Coronary artery stent. ENCOUNTER: Subsequent ACUITY: 2 days PAIN SCORE: Non-responsive. LOCATION: Bilateral chest FINDINGS: Cardiomegaly and shallow lung volumes with atelectatic changes are again seen. Endotracheal tube, NG tube and sternotomy wires are present. CONCLUSION: Shallow lung volumes. Curtis Bartlett MD on September 11, 2016 at 4:38 Board Certified Radiologist. This report was verified electronically.
[2016-09-11 05:27] LABS: AUTOMATED NEUTROPHIL # 7.2 TH/MM3 (1.8-7.7); BASOPHIL % 0.2 % (0.0-2.0); EOSINOPHIL % 0.2 % (0.0-4.0); HEMATOCRIT 33.1 % (39.0-51.0); HEMO FLAGS DIFF FINAL; LYMPH % 6.8 % (9.0-44.0); LYMPHOCYTE # 0.6 TH/MM3 (1.0-4.8); MEAN CORPUSCULAR HGB CONC 32.6 % (32.0-36.0); MONO % 12.3 % (0.0-8.0); NEUT % 80.5 % (16.0-70.0); PLATELET COUNT 147 TH/MM3 (150-450); RED CELL DISTRIBUTION WIDTH 15.5 % (11.6-17.2)
[2016-09-11] MEDS: METOPROLOL TARTRATE 50 MG TAB PO SCH ×3 (05:35→22:00)
[2016-09-11] MEDS: ALBUMIN HUMAN 25% 25 GM/100 ML BAGP IV SCH ×2 (05:35→17:44)
[2016-09-11 05:49] LABS: ALKALINE PHOSPHATASE 52 U/L (45-117); ALT (GPT) 43 U/L (12-78); ANION GAP 12 MEQ/L (5-15); AST (GOT) 185 U/L (15-37); BICARBONATE 22.1 MEQ/L (21.0-32.0); BLOOD UREA NITROGEN 50 MG/DL (7-18); CHLORIDE 110 MEQ/L (98-107); GLOMERULAR FILTRATION RATE 15 ML/MIN (>89); POTASSIUM 4.1 MEQ/L (3.5-5.1); SODIUM (NA) 144 MEQ/L (136-145); TOTAL BILIRUBIN ADULT 0.8 MG/DL (0.2-1.0)
[2016-09-11] MEDS: ISOSORBIDE MONONITRATE 60 MG TAB PO SCH (06:24)
[2016-09-11] MEDS: CHLORHEXIDINE 0.12% (ORAL KIT) 15 ML CUP MT SCH ×2 (08:10→20:00)
[2016-09-11] MEDS: PROPOFOL 1000 MG/100 ML INJ 100 ML IV SCH (08:11)
[2016-09-11] MEDS: SODIUM CHLORIDE 0.9% FLUSH 5 ML FLUSH IV FLUSH SCH ×2 (09:20→20:46)
[2016-09-11] MEDS: ASPIRIN EC 81 MG TABEC PO SCH (09:20)
[2016-09-11] MEDS: CLOPIDOGREL 75 MG TAB PO SCH (09:20)
[2016-09-11] MEDS: FAMOTIDINE 20 MG/2 ML VIAL IV PUSH SCH (09:21)
[2016-09-11] MEDS: ARTIFICIAL TEARS OPTH OINT 3.5 APPLIC/3.5 GM TUBO EACH EYE SCH ×2 (09:21→20:47)
[2016-09-11] MEDS: HEPARIN SODIUM - SQ 10,000 UNITS/ML VIAL SQ SCH ×2 (09:21→20:46)
[2016-09-11] MEDS: DOCUSATE SODIUM 100 MG/10 ML UDC PO SCH ×2 (10:39→20:45)
--- NOTE | 2016-09-11 10:56 | HHI.NPPN ---
Subjective History of Present Illness 66-year-old male with history of coronary artery disease status post CABG, osteoarthritis, diabetes, hyperlipidemia who was admitted there with unstable angina and underwent heart catheterization found to have significant blockages requiring stent and impella device, he has acute renal failure. Additional Remarks Patient remain intubated, open eyes on commands, not in distress. Objective Data Data 09/10/16 09/11/16 19:00 07:00 Intake Total 808 ml 251 ml Output Total 605 ml 2200 ml Balance 203 ml -1949 ml IV Total 748 ml 251 ml Tube Irrigant 60 ml Output Urine Total 605 ml 2200 ml # Bowel Movements 0 0 Vital Signs Date Time Temp Pulse Resp B/P Pulse Ox O2 Delivery O2 Flow Rate FiO2 09/11/16 10:02 98 40 09/11/16 08:00 50 09/11/16 07:57 98 40 09/11/16 07:00 89 09/11/16 07:00 99.3 89 20 128/72 99 09/11/16 07:00 99 Mechanical Ventilator 09/11/16 04:56 99 40 09/11/16 04:00 80 09/11/16 04:00 50 09/11/16 04:00 98.9 91 18 126/76 99 09/11/16 03:00 99 Mechanical Ventilator Non-Rebreather 09/11/16 02:00 82 09/11/16 01:07 97 40 09/11/16 00:00 84 09/11/16 00:00 50 09/11/16 00:00 100.0 84 19 120/79 99 09/10/16 23:00 99 Mechanical Ventilator Non-Rebreather 09/10/16 22:28 99 40 09/10/16 22:00 88 09/10/16 20:00 50 09/10/16 20:00 101.3 91 20 105/85 99 09/10/16 20:00 91 09/10/16 19:44 99 40 09/10/16 19:00 99 Mechanical Ventilator Non-Rebreather 09/10/16 15:45 99 40 09/10/16 15:00 50 09/10/16 15:00 98 Mechanical Ventilator Non-Rebreather 09/10/16 15:00 99.1 86 21 93/46 98 09/10/16 15:00 86 09/10/16 13:35 98 40 09/10/16 11:40 97 50 09/10/16 11:20 50 09/10/16 11:00 95 Non-Rebreather 09/10/16 11:00 106 09/10/16 11:00 100.1 106 28 193/106 98 -: 09/11/16 0430 09/11/16 0430 Microbiology 09/10/16 Aerobic Blood Culture, Received Pending 09/10/16 Anaerobic Blood Culture, Received Pending 09/10/16 Aerobic Blood Culture, Received Pending 09/10/16 Anaerobic Blood Culture, Received Pending Physical Exam General Appearance Remarks Intubated and sedated. Pulmonary Resp Exam: Crackles, Rhonchi, Decreased Bases, Diminished Breath Sounds Cardiology CV Exam: Regular, Normal Sinus Rhythm Gastrointestinal/Abdomen GI Exam: Soft, Non-Tender, Bowel Sounds Present, Distended Extremeties Extremities Exam: Moderate Edema, Pitting Edema, Dependent Edema Neurologic Neuro Exam: Sedated Assessment/Plan Problem List: (1) Acute renal failure Plan: Patient has received heart catheterization He has elevation in the creatinine and he is nonoliguric. Urine out put is almost 200 ml per hr. Creatinine increased to 3.9. Possible overdiuresis. I will decrease Bumex to 0.25 mg per hr. Follow the urine out put and BMP. (2) Hyperkalemia Plan: Resolved (3) Chronic kidney disease Plan: He has stage III chronic kidney disease due to diabetic (4) CHF (congestive heart failure), NYHA class III Plan: Continue to monitor for improvement (5) Coronary artery disease involving [place] heart Plan: Review his bypass and stents (6) Hypertension, essential, benign Plan: Monitor blood pressure (7) Diabetes mellitus, type II Plan: Monitor blood glucose (8) UTI (lower urinary tract infection) Plan: Group D enterococcus less than 10,000, on Zosyn Problem Qualifiers (1) Acute renal failure: Qualified Code: N17.0 - Acute renal failure with tubular necrosis (2) Chronic kidney disease: Qualified Code: N18.3 - Chronic kidney disease, stage 3 (moderate) Eyal Cherry MD Sep 11, 2016 10:56
--- NOTE | 2016-09-11 13:27 | HHI.CCPN ---
Subjective Remarks/Hospital Course 66-year-old gentleman with a history of coronary artery disease status post CABG underwent emergent cardiac catheterization by Dr. Cummins. Postprocedure his course is complicated by aphasia and right-sided weakness. 09/08 Patient was on BIPAP 14/7 with FIO2 25%. On Precedex and heparin drips. CT brain showed last night showed no acute process. Impela was removed this morning by Dr. Cummins. T:99.9 Renal function improving with Cr:2.5 from 3.0 hyperkalemic with K 6.1 09/09: Overnight remained on BiPAP predominantly for sleep apnea. Intermittently follows commands. Will check MRI of the brain today. Creatinine slightly worsened to 2.8. Consulted nephrology, hyperkalemia resolved 09/10: Remains on BiPAP, some interval worsening of respiratory status. Patient is more tachypneic chest x-ray shows left lower lobe infiltrate .Currently sedated with 0.5 g per KG per hour of Precedex. I will discontinue Precedex. MRI brain shows acute infarct left sylv[place] region. Creatinine slightly worse at 3. Low-grade fever Tmax 100.2, send blood and sputum culture and start Zosyn 09/10: Patient was intubated yesterday for progressively worsening respiratory failure, hypoxemia and altered mentation. On ventilator support patient's oxygenation has improved. He moves all extremities do not following commands. Chest x-ray shows no definite infiltrates Objective Vital Signs Date Time Temp Pulse Resp B/P Pulse Ox O2 Delivery O2 Flow Rate FiO2 09/11/16 13:00 40 09/11/16 13:00 99 09/11/16 07:00 89 09/11/16 07:00 99.3 20 128/72 09/11/16 07:00 Mechanical Ventilator 09/10/16 10:44 6.00 Intake and Output 09/10/16 09/10/16 09/11/16 08:00 16:00 00:00 Intake Total 1420 ml 808 ml Output Total 620 ml 605 ml Balance 800 ml 203 ml Result Diagram: 09/11/16 0430 09/11/16 0430 Imaging Last Impressions Head CT 09/07/16 0000 Signed Impressions: Service Date/Time: Wednesday, September 07, 2016 22:08 - CONCLUSION: No acute intracranial abnormality. Sinus disease and supraorbital soft tissue swelling. Michael Vasquez MD Chest X-Ray 09/07/16 0000 Signed Impressions: Service Date/Time: Wednesday, September 07, 2016 22:21 - CONCLUSION: Impella implant appears grossly appropriately positioned on this one view study. Mild failure. Michael Vasquez MD Objective Remarks GENERAL: Well-nourished, well-developed patient. Intubated sedated with propofol SKIN: Warm and dry. HEAD: Normocephalic. EYES: No scleral icterus. No injection or drainage. ENT: Orotracheally intubated NECK: Supple, trachea midline. No JVD or lymphadenopathy. CARDIOVASCULAR: Regular rate and rhythm without murmurs, gallops, or rubs. RESPIRATORY: Breath sounds equal bilaterally. No accessory muscle use. Few basilar crackles heard GASTROINTESTINAL: Abdomen soft, non-tender, nondistended. MUSCULOSKELETAL: No cyanosis, or edema. BACK: Nontender without obvious deformity. No CVA tenderness. EXTREMITIES: Sedated with propofol, right-sided weakness, but moving all extremities Urinary Catheter: Yes Assessment to: Continue A/P Problem List: (1) Acute ischemic left MCA stroke ICD Code: I63.512 Status: Acute (2) Acute renal failure ICD Code: N17.9 Status: Acute (3) CHF (congestive heart failure), NYHA class III ICD Code: I50.9 Status: Acute (4) Coronary artery disease involving [place] heart ICD Code: I25.10 Status: Chronic (5) HTN (hypertension) ICD Code: I10 Status: Acute (6) CKD (chronic kidney disease) ICD Code: N18.9 Status: Acute Assessment and Plan ASSESSMENT Acute left MCA stroke Aphasia with right hemiparesis Acute hypoxemic respiratory failure Acute encephalopathy NSTEMI/CAD Obstructive sleep apnea HCAP Acute on chronic kidney disease Hyperkalemia DM HTN LEONARD Hyperlipidemia Plan Neuro: -Monitor neuro status. Currently on propofol postintubation -CT brain 09/07: No acute disease, Neuro is following- Cr. Nguyen. -MRI brain 09/09/16-acute left [place]lv[place] region infarct. Continue aspirin and Plavix Pulm: -Intubated and placed on mechanical ventilation yesterday for hypoxemia and failure to protect airway -Anterior airway Grade3 view with DL Mac 4 blade -Start spontaneous breathing trials if bundle status permits -Bronchodilators, broad spectrum antibiotics CV: -Monitor HR and BP keep MAP>65mmHg -Continue with ASA, Plavix, Imdur 60mg daily, Lopressor 50mg q8. -s/p cardiac cath 09/07 showed multivessel disease with 2/6 grafts patent, EF 40% . s/p PCI with stents of the saphenous venous graft to the first diagonal artery. -s/p removal Impella 09/08. Cardiology- Dr. Cummins : -Monitor renal function, I/O's, avoid nephrotoxins. -s/p treatment of hyperkalemia with IV insulin, bicarb, rafal gluconate, Kayexalate -Renal function worsening Cr: 3.9 today. UO excellent. Bumex reduced to 0.25 mg per hour -Renal-Dr. Naidu GI: -Speech eval, failed swallow. Currently intubated. Continue NG tube. On Pepcid IV daily ID: Probable healthcare associated pneumonia UTI with enterococcus -Monitor for signs of infections ( Fever, WBC) check UA with cx if indicated -Continue Zosyn 3.375 g every 8 hours, continue vancomycin Heme: -Monitor CBC Endo: -SSI with accuchecks for glycemic control GI prophylaxis - on Pepcid DVT prophylaxis - SCD, Heparin 5000 units subcutaneous every 12 CCT 30 Problem Qualifiers (1) Acute renal failure: Qualified Code: N17.0 - Acute renal failure with tubular necrosis Krishna Rodriguez MD Sep 11, 2016 13:27
[2016-09-11 14:09] LABS: BLOOD GAS BASE EXCESS -3.6 mmol/L (-2-2); BLOOD GAS CARBOXYHEMOGLOBIN 1.3 % (0-4); BLOOD GAS HCO3 21 mmol/L (22-26); BLOOD GAS O2 HGB SATURATION 97 % (90-100); BLOOD GAS PCO2 37 mmHg (38-42); BLOOD GAS PO2 161 mmHg (61-120); BLOOD GAS TOTAL HGB 11.5 G/DL (12.0-16.0); CRITICAL VALUE NO; TEMP CORR TO 98.6
[2016-09-11 14:10] LABS: DRAW SITE RT RADIAL; FIO2 40 %; NUMBER OF ARTERIAL PUNCTURES 1; OXYGEN DEVICE VENTILATOR; STAT NO; ULNAR PULSE PRESENT
--- NOTE | 2016-09-11 16:25 | PD.CARD.PN ---
Objective Vital Signs / I&O Vital Signs Date Time Temp Pulse Resp B/P Pulse Ox O2 Delivery O2 Flow Rate FiO2 09/11/16 15:08 100 Partial Rebreather 5 09/11/16 13:00 40 09/11/16 13:00 40 09/11/16 13:00 99 40 09/11/16 11:00 65 09/11/16 11:00 99 Mechanical Ventilator 09/11/16 11:00 98.3 65 18 142/82 99 09/11/16 10:02 98 40 09/11/16 08:00 50 09/11/16 07:57 98 40 09/11/16 07:00 89 09/11/16 07:00 99.3 89 20 128/72 99 09/11/16 07:00 99 Mechanical Ventilator 09/11/16 04:56 99 40 09/11/16 04:00 80 09/11/16 04:00 50 09/11/16 04:00 98.9 91 18 126/76 99 09/11/16 03:00 99 Mechanical Ventilator Non-Rebreather 09/11/16 02:00 82 09/11/16 01:07 97 40 09/11/16 00:00 84 09/11/16 00:00 50 09/11/16 00:00 100.0 84 19 120/79 99 09/10/16 23:00 99 Mechanical Ventilator Non-Rebreather 09/10/16 22:28 99 40 09/10/16 22:00 88 09/10/16 20:00 50 09/10/16 20:00 101.3 91 20 105/85 99 09/10/16 20:00 91 09/10/16 19:44 99 40 09/10/16 19:00 99 Mechanical Ventilator Non-Rebreather I/O 09/10/16 09/10/16 09/10/16 09/11/16 09/11/16 09/11/16 07:00 15:00 23:00 07:00 15:00 23:00 Intake Total 1420 ml 808 ml 251 ml Output Total 620 ml 605 ml 2200 ml Balance 800 ml 203 ml -1949 ml Intake Oral 0 ml IV Total 1360 ml 748 ml 251 ml Tube Irrigant 60 ml Other 60 ml Output Urine Total 620 ml 605 ml 2200 ml Gastric Drainage Total 0 ml # Bowel Movements 0 0 0 Laboratory Laboratory Tests Test 09/11/16 09/11/16 04:30 14:00 White Blood Count 9.0 TH/MM3 Red Blood Count 3.60 MIL/MM3 Hemoglobin 10.8 GM/DL Hematocrit 33.1 % Mean Corpuscular Volume 92.0 FL Mean Corpuscular Hemoglobin 30.0 PG Mean Corpuscular Hemoglobin 32.6 % Concent Red Cell Distribution Width 15.5 % Platelet Count 147 TH/MM3 Mean Platelet Volume 8.5 FL Neutrophils (%) (Auto) 80.5 % Lymphocytes (%) (Auto) 6.8 % Monocytes (%) (Auto) 12.3 % Eosinophils (%) (Auto) 0.2 % Basophils (%) (Auto) 0.2 % Neutrophils # (Auto) 7.2 TH/MM3 Lymphocytes # (Auto) 0.6 TH/MM3 Monocytes # (Auto) 1.1 TH/MM3 Eosinophils # (Auto) 0.0 TH/MM3 Basophils # (Auto) 0.0 TH/MM3 CBC Comment DIFF FINAL Differential Comment Sodium Level 144 MEQ/L Potassium Level 4.1 MEQ/L Chloride Level 110 MEQ/L Carbon Dioxide Level 22.1 MEQ/L Anion Gap 12 MEQ/L Blood Urea Nitrogen 50 MG/DL Creatinine 3.91 MG/DL Estimat Glomerular Filtration 15 ML/MIN Rate Random Glucose 159 MG/DL Calcium Level 8.4 MG/DL Total Bilirubin 0.8 MG/DL Aspartate Amino Transf 185 U/L (AST/SGOT) Alanine Aminotransferase 43 U/L (ALT/SGPT) Alkaline Phosphatase 52 U/L Total Protein 6.9 GM/DL Albumin 2.6 GM/DL Blood Gas Puncture Site RT RADIAL Blood Gas Patient Temperature 98.6 Blood Gas HCO3 21 mmol/L Blood Gas Base Excess -3.6 mmol/L Blood Gas Oxygen Saturation 97 % Arterial Blood pH 7.37 Arterial Blood Partial 37 mmHg Pressure CO2 Arterial Blood Partial 161 mmHg Pressure O2 Arterial Blood Oxygen Content 16.0 Vol % Arterial Blood 1.3 % Carboxyhemoglobin Arterial Blood Methemoglobin 1.0 % Blood Gas Hemoglobin 11.5 G/DL Oxygen Delivery Device VENTILATOR Blood Gas Ventilator Setting CPAP,PEEP7,PS5 Blood Gas Inspired Oxygen 40 % Assessment and Plan Problem List: (1) Unstable angina (2) CAD (coronary artery disease) of bypass graft (3) CHF (congestive heart failure), NYHA class II (4) Cardiomyopathy, ischemic (5) Chronic kidney disease (6) Suspected cerebrovascular accident (7) Abnormal nuclear stress test Assessment and Plan PT INTUBATED YESTERDAY TO PROTECT AIRWAY NOW EXTUBATED HE IS NPO C NGT HE HAS EXPRESSIVE AND PERHAPS RECEPTIVE APHASIA NO CHF OR VT JVP NL RONCHI RRR NO S3 +1/6 FROYLAN PALPABLE DP BILAT WILL CONT SAME RX NEEDS SWALLOW AND REHAB EVALUATIONS LABS OK X CREATININE RISING Problem Qualifiers (1) Chronic kidney disease: Qualified Code: N18.3 - Chronic kidney disease, stage 3 (moderate) Emmanuel Nicole DO Sep 11, 2016 16:25
[2016-09-11] MEDS: ATORVASTATIN 40 MG TAB PO SCH (20:46)
[2016-09-12] VITALS (11 sets, daily range): BP systolic 137–157; BP diastolic 81–97; PULSE 87–105; RESP 16–20; TEMP 98.6–99.7; O2SAT 96–99
[2016-09-12] MEDS: INSULIN NovoLIN REGULAR SUPPLEMENTAL SCALE SQ SCH ×6 (01:00→21:34)
[2016-09-12] MEDS: PIPERACIL-TAZO 3.375 GM PREMIX 50 ML IV SCH ×2 (01:00→07:34)
[2016-09-12] MEDS: RESP: ALBUTEROL 2.5 MG/IPRATROPIUM 0.5 MG NEB (SCH) NEB ×6 (03:32→23:39)
[2016-09-12] MEDS: CHLORHEXIDINE GLUCONATE 2 % 1 PACK (2 CLOTHS) TOP SCH (04:00)
[2016-09-12 04:45] LABS: AUTOMATED NEUTROPHIL # 8.9 TH/MM3 (1.8-7.7); BASOPHIL % 0.3 % (0.0-2.0); EOSINOPHIL # 0.1 TH/MM3 (0-0.4); HEMO FLAGS DIFF FINAL; LYMPH % 6.4 % (9.0-44.0); LYMPHOCYTE # 0.7 TH/MM3 (1.0-4.8); MEAN CELL VOLUME 90.7 FL (80.0-100.0); MEAN CORPUSCULAR HEMOGLOBIN 29.7 PG (27.0-34.0); MEAN CORPUSCULAR HGB CONC 32.8 % (32.0-36.0); MONO % 11.9 % (0.0-8.0); NEUT % 80.4 % (16.0-70.0); PLATELET COUNT 171 TH/MM3 (150-450); RED BLOOD COUNT 3.86 MIL/MM3 (4.50-5.90); RED CELL DISTRIBUTION WIDTH 15.6 % (11.6-17.2); WHITE BLOOD COUNT 11.1 TH/MM3 (4.0-11.0)
--- NOTE | 2016-09-12 04:55 | RADRPT ---
EXAM DATE/TIME: 09/12/2016 03:48 [facility] COMPARISON: CHEST SINGLE AP, September 11, 2016, 3:54. INDICATIONS : Shortness of breath, possible pulmonary disease. MEDICAL HISTORY : Hypertension. SURGICAL HISTORY : CABG. Coronary artery stent. ENCOUNTER: Subsequent ACUITY: 3 days PAIN SCORE: Non-responsive. LOCATION: Bilateral chest FINDINGS: Cardiomegaly, median sternotomy wires are noted. NG tube tip not well visualized, the distal visualiz ed portion of the NG tube extends to the expected location of the distal esophagus. There is streaky airspace disease in both medial lung bases. Endotracheal tube has been removed. CONCLUSION: No significant change has occurred. Curtis Bartlett MD on September 12, 2016 at 4:53 Board Certified Radiologist. This report was verified electronically.
[2016-09-12 05:13] LABS: ANION GAP 13 MEQ/L (5-15); AST (GOT) 101 U/L (15-37); BICARBONATE 25.1 MEQ/L (21.0-32.0); BLOOD UREA NITROGEN 57 MG/DL (7-18); CHLORIDE 108 MEQ/L (98-107); GLOMERULAR FILTRATION RATE 13 ML/MIN (>89); POTASSIUM 3.6 MEQ/L (3.5-5.1); SODIUM (NA) 146 MEQ/L (136-145)
[2016-09-12 05:14] LABS: ALKALINE PHOSPHATASE 63 U/L (45-117); ALT (GPT) 44 U/L (12-78); VANCOMYCIN TROUGH 12.4 MCG/ML (5.0-10.0)
[2016-09-12] MEDS: METOPROLOL TARTRATE 50 MG TAB PO SCH ×3 (05:22→21:34)
[2016-09-12] MEDS: ALBUMIN HUMAN 25% 25 GM/100 ML BAGP IV SCH ×2 (05:22→17:13)
[2016-09-12] MEDS: ISOSORBIDE MONONITRATE 60 MG TAB PO SCH (06:24)
[2016-09-12] MEDS: FAMOTIDINE 20 MG/2 ML VIAL IV PUSH SCH (07:34)
[2016-09-12] MEDS: DOCUSATE SODIUM 100 MG/10 ML UDC PO SCH ×2 (07:34→20:14)
[2016-09-12] MEDS: ASPIRIN EC 81 MG TABEC PO SCH (07:35)
[2016-09-12] MEDS: CLOPIDOGREL 75 MG TAB PO SCH (07:35)
[2016-09-12] MEDS: HEPARIN SODIUM - SQ 10,000 UNITS/ML VIAL SQ SCH ×2 (07:35→20:14)
[2016-09-12] MEDS: SODIUM CHLORIDE 0.9% FLUSH 5 ML FLUSH IV FLUSH SCH ×2 (07:36→20:14)
[2016-09-12] MEDS: CHLORHEXIDINE 0.12% (ORAL KIT) 15 ML CUP MT SCH ×2 (07:37→20:00)
[2016-09-12] MEDS: ARTIFICIAL TEARS OPTH OINT 3.5 APPLIC/3.5 GM TUBO EACH EYE SCH ×2 (07:37→20:14)
--- NOTE | 2016-09-12 08:17 | HHI.CCPN ---
Subjective Remarks/Hospital Course 66-year-old gentleman with a history of coronary artery disease status post CABG underwent emergent cardiac catheterization by Dr. Cummins. Postprocedure his course is complicated by aphasia and right-sided weakness. 09/08 Patient was on BIPAP 14/7 with FIO2 25%. On Precedex and heparin drips. CT brain showed last night showed no acute process. Impela was removed this morning by Dr. Cummins. T:99.9 Renal function improving with Cr:2.5 from 3.0 hyperkalemic with K 6.1 09/09: Overnight remained on BiPAP predominantly for sleep apnea. Intermittently follows commands. Will check MRI of the brain today. Creatinine slightly worsened to 2.8. Consulted nephrology, hyperkalemia resolved 09/10: Remains on BiPAP, some interval worsening of respiratory status. Patient is more tachypneic chest x-ray shows left lower lobe infiltrate .Currently sedated with 0.5 g per KG per hour of Precedex. I will discontinue Precedex. MRI brain shows acute infarct left [place] region. Creatinine slightly worse at 3. Low-grade fever Tmax 100.2, send blood and sputum culture and start Zosyn 09/11: Patient was intubated yesterday for progressively worsening respiratory failure, hypoxemia and altered mentation. On ventilator support patient's oxygenation has improved. He moves all extremities do not following commands. Chest x-ray shows no definite infiltrates 09/12: Extubated yesterday tolerating well oxygenation varghese and protecting airway. No fevers. Urine output 3.8 L in 24 hours with creatinine worsening from 3.9 to 4.5 today. Remains aphasic not following commands Objective Vital Signs Date Time Temp Pulse Resp B/P Pulse Ox O2 Delivery O2 Flow Rate FiO2 09/12/16 07:26 96 Nasal Cannula 2.00 09/12/16 03:00 99.0 99 20 157/97 09/11/16 13:00 40 Intake and Output 09/11/16 09/11/16 09/12/16 08:00 16:00 00:00 Intake Total 251 ml Output Total 2200 ml Balance -1949 ml Result Diagram: 09/12/16 0342 09/12/16 0342 Other Results Laboratory Tests Test 09/11/16 14:00 Blood Gas Puncture Site RT RADIAL Blood Gas Patient Temperature 98.6 Blood Gas HCO3 21 mmol/L (22-26) Blood Gas Base Excess -3.6 mmol/L (-2-2) Blood Gas Oxygen Saturation 97 % (90-100) Arterial Blood pH 7.37 (7.380-7.420) Arterial Blood Partial 37 mmHg (38-42) Pressure CO2 Arterial Blood Partial 161 mmHg Pressure O2 (61-120) Arterial Blood Oxygen Content 16.0 Vol % (12.0-20.0) Arterial Blood 1.3 % (0-4) Carboxyhemoglobin Arterial Blood Methemoglobin 1.0 % (0-2) Blood Gas Hemoglobin 11.5 G/DL (12.0-16.0) Oxygen Delivery Device VENTILATOR Blood Gas Ventilator Setting CPAP,PEEP7,PS5 Blood Gas Inspired Oxygen 40 % Imaging Last Impressions Head CT 09/07/16 0000 Signed Impressions: Service Date/Time: Wednesday, September 07, 2016 22:08 - CONCLUSION: No acute intracranial abnormality. Sinus disease and supraorbital soft tissue swelling. Michael Vasquez MD Chest X-Ray 09/07/16 0000 Signed Impressions: Service Date/Time: Wednesday, September 07, 2016 22:21 - CONCLUSION: Impella implant appears grossly appropriately positioned on this one view study. Mild failure. Michael Vasquez MD Objective Remarks GENERAL: Well-nourished, well-developed patient. On NC SKIN: Warm and dry. HEAD: Normocephalic. EYES: No scleral icterus. No injection or drainage. ENT: Oral cavity moist NECK: Supple, trachea midline. No JVD or lymphadenopathy. CARDIOVASCULAR: Regular rate and rhythm without murmurs, gallops, or rubs. RESPIRATORY: Breath sounds equal bilaterally. No accessory muscle use. GASTROINTESTINAL: Abdomen soft, non-tender, nondistended. MUSCULOSKELETAL: No cyanosis, or edema. BACK: Nontender without obvious deformity. EXTREMITIES: Awake, alert, aphasic. Blank stare, donot follow commands. Moving all extremities, weaker on R side A/P Problem List: (1) Acute ischemic left MCA stroke ICD Code: I63.512 Status: Acute (2) Acute renal failure ICD Code: N17.9 Status: Acute (3) CHF (congestive heart failure), NYHA class III ICD Code: I50.9 Status: Acute (4) Coronary artery disease involving [place] heart ICD Code: I25.10 Status: Chronic (5) HTN (hypertension) ICD Code: I10 Status: Acute (6) CKD (chronic kidney disease) ICD Code: N18.9 Status: Acute Assessment and Plan ASSESSMENT Acute left MCA stroke Aphasia with right hemiparesis Acute metabolic encephalopathy NSTEMI Known CAD Obstructive sleep apnea HCAP UTI with enterococcus Acute hypoxemic respiratory failure-resolved Acute on chronic kidney disease Hyperkalemia-resolved DM HTN LEONARD Hyperlipidemia Plan Neuro: -Monitor neuro status. Ativan PRN for agitation -CT brain 09/07: No acute disease, MRI brain 09/09/16-acute left sylvian region infarct. -Continue aspirin and Plavix. Neuro is following- Cr. Patrick. Pulm: -Intubated and placed on mechanical ventilation 09/10 for hypoxemia and failure to protect airway, extubated 09/11 -Anterior airway Grade3 view with DL Mac 4 blade -Protecting airway at this time -Bronchodilators, broad spectrum antibiotics CV: -Monitor HR and BP keep MAP>65mmHg -Continue with ASA, Plavix, Imdur 60mg daily, Lopressor 50mg q8. -s/p cardiac cath 09/07 showed multivessel disease with 2/6 grafts patent, EF 40% . s/p PCI with stents of the saphenous venous graft to the first diagonal artery. -s/p removal Impella 09/08. Cardiology- Dr. Cummins : -Monitor renal function, I/O's, avoid nephrotoxins. -s/p treatment of hyperkalemia with IV insulin, bicarb, rafal gluconate, Kayexalate -Renal function worsening Cr: 4.5 from 3.9 today. UO excellent. Bumex reduced to 0.25 mg per hour 09/11- will DC gtt and start 1 mg IV q8 09/12 -Renal-Dr. Naidu GI: -Speech eval, failed swallow. Continue NG tube, start Nepro 09/12. On Pepcid IV daily ID: -Monitor for signs of worsening infections ( Fever, WBC) -Continue Zosyn 3.375 g every 8 hours for probable aspiration pneumonia -UTI with enterococcus sensitive to Cipro. DC Vanc and started Levaquin 09/12/16 Heme: -Monitor CBC Endo: -SSI with accuchecks for glycemic control GI prophylaxis - on Pepcid DVT prophylaxis - SCD, Heparin 5000 units subcutaneous every 12 Level 3 PT OOB, OT. Speech therapy Problem Qualifiers (1) Acute renal failure: Qualified Code: N17.0 - Acute renal failure with tubular necrosis Krishna Rodriguez MD Sep 12, 2016 08:16
[2016-09-12] MEDS: BUMETANIDE INJ 1 MG/4 ML VIAL IV PUSH SCH ×2 (09:35→17:13)
[2016-09-12] MEDS: LEVOFLOXACIN 750 MG PREMIX INJ 150 ML IV SCH (09:35)
[2016-09-12] MEDS: LORazepam 2 MG/ML VIAL IV PRN (12:40)
[2016-09-12] MEDS ORDERED: PIPERACIL-TAZO 3.375 GM PREMIX 50 ML IV SCH (13:00)
--- NOTE | 2016-09-12 13:28 | HHI.NPPN ---
Subjective History of Present Illness 66-year-old male with history of coronary artery disease status post CABG, osteoarthritis, diabetes, hyperlipidemia who was admitted there with unstable angina and underwent heart catheterization found to have significant blockages requiring stent and impella device, he has acute renal failure. Additional Remarks Patient remain intubated, not in distress and clinically same. Objective Data Data 09/11/16 09/12/16 19:00 07:00 Intake Total 13 ml Output Total 3800 ml Balance -3787 ml IV Total 13 ml Output Urine Total 3800 ml # Bowel Movements 0 Vital Signs Date Time Temp Pulse Resp B/P Pulse Ox O2 Delivery O2 Flow Rate FiO2 09/12/16 12:05 103 09/12/16 11:00 99.7 96 18 137/90 98 09/12/16 11:00 98 Nasal Cannula 2.00 09/12/16 09:00 98.6 102 20 138/81 98 09/12/16 09:00 99 09/12/16 09:00 98 Nasal Cannula 4.00 09/12/16 07:26 96 Nasal Cannula 2.00 09/12/16 07:00 99.7 96 18 137/90 98 09/12/16 03:00 99.0 99 20 157/97 99 09/12/16 03:00 105 09/12/16 03:00 98 Nasal Cannula 5.00 09/11/16 23:00 99 Nasal Cannula 5.00 09/11/16 23:00 98.7 100 20 155/90 99 09/11/16 23:00 110 09/11/16 20:00 96 09/11/16 19:29 99 Nasal Cannula 5.00 09/11/16 19:00 99 Nasal Cannula 5.00 09/11/16 19:00 98.4 98 20 163/97 98 09/11/16 15:08 100 Partial Rebreather 5 09/11/16 15:00 99 Nasal Cannula 09/11/16 15:00 99.5 107 24 176/99 22 09/11/16 15:00 107 -: 09/12/16 0342 09/12/16 0342 Physical Exam General Appearance Remarks Intubated and sedated. Pulmonary Resp Exam: Crackles, Rhonchi, Decreased Bases, Diminished Breath Sounds Cardiology CV Exam: Regular, Normal Sinus Rhythm Gastrointestinal/Abdomen GI Exam: Soft, Non-Tender, Bowel Sounds Present, Distended Extremeties Extremities Exam: Moderate Edema, Pitting Edema, Dependent Edema Neurologic Neuro Exam: Sedated Assessment/Plan Problem List: (1) Acute renal failure Plan: Patient has received heart catheterization He has elevation in the creatinine and he is nonoliguric. Creatinine almost same Possible overdiuresis. Follow the urine out put and BMP. Continue Bumex infusion. (2) Hyperkalemia Plan: Resolved (3) Chronic kidney disease Plan: He has stage III chronic kidney disease due to diabetic (4) CHF (congestive heart failure), NYHA class III Plan: Continue to monitor for improvement (5) Coronary artery disease involving [place] heart Plan: Review his bypass and stents (6) Hypertension, essential, benign Plan: Monitor blood pressure (7) Diabetes mellitus, type II Plan: Monitor blood glucose (8) UTI (lower urinary tract infection) Plan: Group D enterococcus less than 10,000, on Zosyn Problem Qualifiers (1) Acute renal failure: Qualified Code: N17.0 - Acute renal failure with tubular necrosis (2) Chronic kidney disease: Qualified Code: N18.4 - Chronic kidney disease, stage 4 (severe) (3) Diabetes mellitus, type II: Qualified Code: E11.22 - Type 2 diabetes mellitus with diabetic chronic kidney disease, unspecified CKD stage, unspecified maturity checker insulin use status Eyal Cherry MD Sep 12, 2016 13:28
[2016-09-12] MEDS: PIPERACIL-TAZO 2.25 GM PREMIX 50 ML IV SCH ×2 (14:00→20:30)
--- NOTE | 2016-09-12 16:33 | MB ---
cc: ERICA MICHEL M.D. DATE OF CONSULTATION 09/12/[address] Cummins REASON FOR REFERRAL PEG tube placement. HISTORY OF THE PRESENT ILLNESS Thank you for the consultation. A 66-year-old -[place] male who has coronary artery disease status post CABG. The patient also had a stroke. He was admitted with unstable angina and had cardiac cath which showed significant blockage with stent and Impella device. He had acute renal failure and he is unresponsive. He needs a PEG tube for long-term feeding. Currently patient on heparin, Plavix and aspirin. REVIEW OF SYSTEMS Unobtainable. ALLERGIES NO KNOWN DRUG ALLERGIES. PAST SURGICAL HISTORY 1. Bilateral knee replacement. 2. Cardiac catheterization in 2000 with in-stent placement. 3. Coronary artery bypass graft. 4. Colonoscopy. 5. Endoscopy. 6. Depression. 7. Sleep apnea. 8. Hypertension. 9. Chronic kidney disease. 10. Diabetes. MEDICATIONS Reviewed in the chart. FAMILY HISTORY Noncontributory. SOCIAL HISTORY From the record no tobacco or alcohol. PHYSICAL EXAMINATION GENERAL: The patient is laying in bed, seems to be well-nourished, well-developed. SKIN: No jaundice. HEENT: Normocephalic. No scleral icterus. NECK: Supple. CARDIOVASCULAR: Regular rate and rhythm. LUNGS: Breathing sounds bilaterally with some rhonchi. ABDOMEN: Soft, nondistended, mild obesity. EXTREMITIES: No cyanosis or edema. NEUROLOGICAL: Not responsive. LABORATORY DATA White count 11.1, hemoglobin 11.5, platelet 171. INR 1.0. Liver function tests, elevation of AST of 101, total bilirubin 1.0. IMAGING Chest x-ray from today no significant changes. ASSESSMENT/PLAN A 66-year-old male with a stroke. The patient has coronary artery disease, unresponsive. The patient needs PEG tube. He is on multiple anticoagulation. We will ask cardiology if it is possible to stop the Plavix, if not we will plan on doing it while he is on Plavix which is high risk but still can be done. We will hold heparin for 6 hours before the procedure. MD LALA Julio/JEREMIAS /3:35 PM /4:21 PM
[2016-09-12] MEDS: ATORVASTATIN 40 MG TAB PO SCH (20:14)
[2016-09-12] MEDS: hydrALAZINE HCL 20 MG/ML VIAL IV PUSH PRN (20:14)
[2016-09-13] VITALS (10 sets, daily range): BP systolic 133–163; BP diastolic 76–101; PULSE 84–118; RESP 20–25; TEMP 97.7–100.4; O2SAT 94–98
[2016-09-13] MEDS: BUMETANIDE INJ 1 MG/4 ML VIAL IV PUSH SCH ×2 (01:55→08:52)
[2016-09-13] MEDS: PIPERACIL-TAZO 2.25 GM PREMIX 50 ML IV SCH ×4 (01:55→17:07)
[2016-09-13] MEDS: INSULIN NovoLIN REGULAR SUPPLEMENTAL SCALE SQ SCH ×6 (01:59→21:28)
[2016-09-13] MEDS: CHLORHEXIDINE GLUCONATE 2 % 1 PACK (2 CLOTHS) TOP SCH (04:00)
[2016-09-13] MEDS: hydrALAZINE HCL 20 MG/ML VIAL IV PUSH PRN ×2 (04:48→21:29)
[2016-09-13] MEDS: LORazepam 2 MG/ML VIAL IV PRN ×2 (04:48→21:32)
[2016-09-13] MEDS: METOPROLOL TARTRATE 50 MG TAB PO SCH ×3 (04:50→21:28)
[2016-09-13] MEDS: ALBUMIN HUMAN 25% 25 GM/100 ML BAGP IV SCH ×2 (04:50→17:08)
[2016-09-13] MEDS ORDERED: METOPROLOL TARTRATE 5 MG/5 ML VIAL ONE (05:06)
[2016-09-13] MEDS: ISOSORBIDE MONONITRATE 60 MG TAB PO SCH (06:12)
--- NOTE | 2016-09-13 07:07 | HHI.CCPN ---
Subjective Remarks/Hospital Course 66-year-old gentleman with a history of coronary artery disease status post CABG underwent emergent cardiac catheterization by Dr. Cummins. Postprocedure his course is complicated by aphasia and right-sided weakness. 09/08 Patient was on BIPAP 14/7 with FIO2 25%. On Precedex and heparin drips. CT brain showed last night showed no acute process. Impela was removed this morning by Dr. Cummins. T:99.9 Renal function improving with Cr:2.5 from 3.0 hyperkalemic with K 6.1 09/09: Overnight remained on BiPAP predominantly for sleep apnea. Intermittently follows commands. Will check MRI of the brain today. Creatinine slightly worsened to 2.8. Consulted nephrology, hyperkalemia resolved 09/10: Remains on BiPAP, some interval worsening of respiratory status. Patient is more tachypneic chest x-ray shows left lower lobe infiltrate .Currently sedated with 0.5 g per KG per hour of Precedex. I will discontinue Precedex. MRI brain shows acute infarct left sylvian region. Creatinine slightly worse at 3. Low-grade fever Tmax 100.2, send blood and sputum culture and start Zosyn 09/11: Patient was intubated yesterday for progressively worsening respiratory failure, hypoxemia and altered mentation. On ventilator support patient's oxygenation has improved. He moves all extremities do not following commands. Chest x-ray shows no definite infiltrates 09/12: Extubated yesterday tolerating well oxygenation varghese and protecting airway. No fevers. Urine output 3.8 L in 24 hours with creatinine worsening from 3.9 to 4.5 today. Remains aphasic not following commands 09/13: Somnolent, received Ativan for agitation overnight. Urine output 4 L in 24 hours. Labs are pending at this time. Opens eyes to verbal stimulation, remains aphasic and did not follow commands Objective Vital Signs Date Time Temp Pulse Resp B/P Pulse Ox O2 Delivery O2 Flow Rate FiO2 09/13/16 05:00 138/84 09/13/16 03:00 97 Nasal Cannula 2.00 09/13/16 03:00 100.4 112 20 09/11/16 13:00 40 Intake and Output 09/12/16 09/12/16 09/13/16 08:00 16:00 00:00 Intake Total 13 ml 309 ml Output Total 3800 ml 2750 ml Balance -3787 ml -2441 ml Result Diagram: 09/12/16 0342 09/12/16 0342 Other Results Microbiology Date/Time Procedure Status Source Growth 09/10/16 08:00 Gram Stain - Final Complete Sputum Endotracheal 09/10/16 08:00 Sputum Culture - Final Complete Sputum Endotracheal HEAVY GROWTH NORMAL RESPIRATORY ADAL Imaging Last Impressions Head CT 09/07/16 0000 Signed Impressions: Service Date/Time: Wednesday, September 07, 2016 22:08 - CONCLUSION: No acute intracranial abnormality. Sinus disease and supraorbital soft tissue swelling. Michael Vasquez MD Chest X-Ray 09/07/16 0000 Signed Impressions: Service Date/Time: Wednesday, September 07, 2016 22:21 - CONCLUSION: Impella implant appears grossly appropriately positioned on this one view study. Mild failure. Michael Vasquez MD Objective Remarks GENERAL: Well-nourished, well-developed patient. On NC SKIN: Warm and dry. HEAD: Normocephalic. EYES: No scleral icterus. No injection or drainage. ENT: Oral cavity moist NECK: Supple, trachea midline. No JVD or lymphadenopathy. CARDIOVASCULAR: Regular rate and rhythm without murmurs, gallops, or rubs. RESPIRATORY: Breath sounds equal bilaterally. No accessory muscle use. GASTROINTESTINAL: Abdomen soft, non-tender, nondistended. MUSCULOSKELETAL: No cyanosis, or edema. BACK: Nontender without obvious deformity. EXTREMITIES: Somnolent but opens eyes to stimulation, aphasic. Blank stare, donot follow commands. Moving all extremities, weaker on R side Urinary Catheter: Yes Assessment to: Continue A/P Problem List: (1) Acute ischemic left MCA stroke ICD Code: I63.512 Status: Acute (2) Acute renal failure ICD Code: N17.9 Status: Acute (3) CHF (congestive heart failure), NYHA class III ICD Code: I50.9 Status: Acute (4) Coronary artery disease involving [place] heart ICD Code: I25.10 Status: Chronic (5) HTN (hypertension) ICD Code: I10 Status: Acute (6) CKD (chronic kidney disease) ICD Code: N18.9 Status: Acute Assessment and Plan ASSESSMENT Acute left MCA stroke Aphasia with right hemiparesis Metabolic encephalopathy NSTEMI Known CAD Obstructive sleep apnea UTI with enterococcus HCAP Acute hypoxemic respiratory failure-resolved Acute on chronic kidney disease Hyperkalemia-resolved DM HTN LEONARD Hyperlipidemia Plan Neuro: -Monitor neuro status. Ativan PRN for agitation -MRI brain 09/09/16-acute left sylvian region infarct. CT brain 09/07: No acute disease. -Continue aspirin and Plavix. Neuro was following- Cr. Patrick. Will reconsult -EEG ordered to rule out subclinical seizures Pulm: -Intubated and placed on mechanical ventilation 09/10 for hypoxemia and failure to protect airway, extubated 09/11 -Anterior airway Grade3 view with DL Mac 4 blade -Protecting airway at this time -Bronchodilators, broad spectrum antibiotics CV: -Monitor HR and BP keep MAP>65mmHg -Continue with ASA, Plavix, Imdur 60mg daily, Lopressor 50mg q8. -s/p cardiac cath 09/07 showed multivessel disease with 2/6 grafts patent, EF 40% . s/p PCI with stents of the saphenous venous graft to the first diagonal artery. -s/p removal Impella 09/08. Cardiology- Dr. Cummins : -Monitor renal function, I/O's, avoid nephrotoxins. -s/p treatment of hyperkalemia with IV insulin, bicarb, rafal gluconate, Kayexalate -Renal function worsening Cr: 4.5 from 3.9 09/12. Today's labs pending. UO excellent. Bumex reduced to 0.25 mg per hour 09/11- changed to1 mg IV q8 09/12 -Renal-Dr. Naidu. May need HD GI: -Speech eval, failed swallow. Continue NG tube, Nepro 09/12. On Pepcid IV daily -GI consulted for PEG tube placement -Remains aphasic ID: -Monitor for signs of worsening infections ( Fever, WBC) -Continue Zosyn 3.375 g every 8 hours for probable aspiration pneumonia -UTI with enterococcus sensitive to Cipro. DCd Vanc and started Levaquin Heme: -Monitor CBC Endo: -SSI with accuchecks for glycemic control GI prophylaxis - on Pepcid DVT prophylaxis - SCD, Heparin 5000 units subcutaneous every 12 Level 3 PT OOB to stretcher chair daily, OT. Speech therapy Problem Qualifiers (1) Acute renal failure: Qualified Code: N17.0 - Acute renal failure with tubular necrosis Krishna Rodriguez MD Sep 13, 2016 07:07
[2016-09-13] MEDS: RESP: ALBUTEROL 2.5 MG/IPRATROPIUM 0.5 MG NEB (PRN) INH (07:28)
[2016-09-13] MEDS: CHLORHEXIDINE 0.12% (ORAL KIT) 15 ML CUP MT SCH ×2 (08:00→20:00)
[2016-09-13] MEDS: CLOPIDOGREL 75 MG TAB PO SCH (08:52)
[2016-09-13] MEDS: ASPIRIN EC 81 MG TABEC PO SCH (08:52)
[2016-09-13] MEDS: DOCUSATE SODIUM 100 MG/10 ML UDC PO SCH ×2 (08:52→20:52)
[2016-09-13] MEDS: FAMOTIDINE 20 MG/2 ML VIAL IV PUSH SCH (08:53)
[2016-09-13] MEDS: HEPARIN SODIUM - SQ 10,000 UNITS/ML VIAL SQ SCH ×2 (08:53→20:51)
[2016-09-13] MEDS: SODIUM CHLORIDE 0.9% FLUSH 5 ML FLUSH IV FLUSH SCH ×2 (08:54→20:52)
[2016-09-13] MEDS: ARTIFICIAL TEARS OPTH OINT 3.5 APPLIC/3.5 GM TUBO EACH EYE SCH (08:54)
[2016-09-13 09:09] LABS: AUTOMATED NEUTROPHIL # 10.7 TH/MM3 (1.8-7.7); BASOPHIL % 0.3 % (0.0-2.0); EOSINOPHIL % 0.3 % (0.0-4.0); HEMO FLAGS DIFF FINAL; LYMPH % 3.1 % (9.0-44.0); LYMPHOCYTE # 0.4 TH/MM3 (1.0-4.8); MEAN CELL VOLUME 89.9 FL (80.0-100.0); MEAN CORPUSCULAR HEMOGLOBIN 29.8 PG (27.0-34.0); MEAN CORPUSCULAR HGB CONC 33.1 % (32.0-36.0); MONO % 9.8 % (0.0-8.0); NEUT % 86.5 % (16.0-70.0); PLATELET COUNT 257 TH/MM3 (150-450); RED BLOOD COUNT 4.22 MIL/MM3 (4.50-5.90); RED CELL DISTRIBUTION WIDTH 15.3 % (11.6-17.2); WHITE BLOOD COUNT 12.4 TH/MM3 (4.0-11.0)
[2016-09-13 09:44] LABS: ALKALINE PHOSPHATASE 72 U/L (45-117); ALT (GPT) 48 U/L (12-78); ANION GAP 13 MEQ/L (5-15); AST (GOT) 56 U/L (15-37); BICARBONATE 28.5 MEQ/L (21.0-32.0); BLOOD UREA NITROGEN 70 MG/DL (7-18); CHLORIDE 102 MEQ/L (98-107); GLOMERULAR FILTRATION RATE 11 ML/MIN (>89); POTASSIUM 3.3 MEQ/L (3.5-5.1); SODIUM (NA) 143 MEQ/L (136-145); TOTAL BILIRUBIN ADULT 0.8 MG/DL (0.2-1.0)
--- NOTE | 2016-09-13 10:55 | HHI.NPPN ---
Subjective History of Present Illness 66-year-old male with history of coronary artery disease status post CABG, osteoarthritis, diabetes, hyperlipidemia who was admitted there with unstable angina and underwent heart catheterization found to have significant blockages requiring stent and impella device, he has acute renal failure. Additional Remarks Patient remain unresponsive off sedation and Vent Objective Data Data 09/12/16 09/13/16 19:00 07:00 Intake Total 309 ml 660 ml Output Total 2750 ml 1325 ml Balance -2441 ml -665 ml IV Total 250 ml 100 ml Tube Feeding 59 ml 370 ml Albumin 100 ml Tube Irrigant 90 ml Output Urine Total 2750 ml 1325 ml # Bowel Movements 1 4 Vital Signs Date Time Temp Pulse Resp B/P Pulse Ox O2 Delivery O2 Flow Rate FiO2 09/13/16 07:28 94 Nasal Cannula 2.00 09/13/16 07:00 110 09/13/16 07:00 97 Nasal Cannula 4.00 09/13/16 07:00 99.2 110 20 133/84 97 09/13/16 05:00 138/84 09/13/16 03:00 97 Nasal Cannula 2.00 09/13/16 03:00 100.4 112 20 162/91 98 09/13/16 03:00 84 09/12/16 23:00 87 09/12/16 23:00 98.9 94 20 156/86 98 09/12/16 23:00 95 Room Air 09/12/16 19:15 98.7 105 16 141/84 97 09/12/16 19:00 96 09/12/16 19:00 97 Nasal Cannula 2.00 09/12/16 15:39 98 09/12/16 15:34 99.2 97 18 143/93 97 09/12/16 15:32 98 Nasal Cannula 4.00 09/12/16 12:05 103 09/12/16 11:00 99.7 96 18 137/90 98 09/12/16 11:00 98 Nasal Cannula 2.00 -: 09/13/16 0803 09/13/16 0803 Physical Exam Pulmonary Resp Exam: Crackles, Rhonchi, Decreased Bases, Diminished Breath Sounds Cardiology CV Exam: Regular, Normal Sinus Rhythm Gastrointestinal/Abdomen GI Exam: Soft, Non-Tender, Bowel Sounds Present, Distended Extremeties Extremities Exam: Moderate Edema, Pitting Edema, Dependent Edema Neurologic Neuro Exam: Sedated Assessment/Plan Problem List: (1) Acute renal failure Plan: Patient has received heart catheterization He has elevation in the creatinine and he is nonoliguric. Urine out put is almost 4 L Creatinine increased to 5.4 rehydrate with NS at 42 ml/hr Possible overdiuresis. stop Bumex follow BMP (2) Hyperkalemia Plan: Resolved (3) Chronic kidney disease Plan: He has stage III chronic kidney disease due to diabetic (4) CHF (congestive heart failure), NYHA class III Plan: Continue to monitor for improvement (5) Coronary artery disease involving [place] heart Plan: Review his bypass and stents (6) Hypertension, essential, benign Plan: Monitor blood pressure (7) Diabetes mellitus, type II Plan: Monitor blood glucose (8) UTI (lower urinary tract infection) Plan: Group D enterococcus less than 10,000, on Zosyn (9) CVA (cerebral vascular accident) Plan: remain unresponsive moves left side more Problem Qualifiers (1) Acute renal failure: Qualified Code: N17.0 - Acute renal failure with tubular necrosis (2) Chronic kidney disease: Qualified Code: N18.3 - Chronic kidney disease, stage 3 (moderate) Marisol Naidu MD Sep 13, 2016 10:55
--- NOTE | 2016-09-13 12:20 | PD.CARD.PN ---
Subjective Subjective Remarks Extubated, still aphasic, EEG today Objective Medications Current Medications Medications (Trade) Dose Ordered Sig/Eric Route Start Time Stop Time Status Last Admin (Ecotrin Ec) 81 mg DAILY PO 09/08/16 09:00 09/13/16 08:52 (Lipitor) 40 mg HS PO 09/07/16 21:30 09/12/16 20:14 (Plavix) 75 mg DAILY PO 09/08/16 09:00 09/13/16 08:52 (Imdur) 60 mg DAILY@07 PO 09/08/16 07:00 09/13/16 06:12 (NS Flush) 2 ml UNSCH PRN IV FLUSH 09/07/16 21:30 (NS Flush) 2 ml BID IV FLUSH 09/08/16 09:00 09/13/16 08:54 (Tylenol) 650 mg Q6H PRN PO 09/07/16 21:30 09/10/16 20:29 (Morphine Inj) 2 mg Q2H PRN IV 09/07/16 21:30 09/09/16 01:00 (Pepcid Inj) 20 mg Q24H IV PUSH 09/08/16 09:00 09/13/16 08:53 (Ativan Inj) 0.5 mg Q2HR PRN IV 09/07/16 21:30 09/13/16 04:48 (Zofran Inj) 4 mg Q6H PRN IV 09/07/16 21:30 09/08/16 22:00 (Reglan Inj) 5 mg Q6H PRN IV 09/07/16 21:30 Miscellaneous Information 1 Q361D XX 09/07/16 21:30 (Chlorhexidine 2% Cloth) Taper DAILY@04 TOP 09/08/16 04:00 09/04/17 03:59 09/13/16 04:00 (Chlorhexidine 2% Cloth) 3 pack UNSCH PRN TOP 09/07/16 21:30 (Apresoline Inj) 20 mg Q4H PRN IV PUSH 09/08/16 04:30 09/13/16 04:48 (D50w (Vial) Inj) 25 ml UNSCH PRN IV PUSH 09/08/16 12:45 (Glucagon Inj) 1 mg UNSCH PRN OTHER 09/08/16 12:45 (NovoLIN R SUPPLEMENTAL SCALE) 1 Q4H SQ 09/08/16 13:00 09/13/16 09:00 (Lopressor) 50 mg Q8H PO 09/09/16 14:00 09/13/16 04:50 (Heparin Inj) 5,000 units Q12HR SQ 09/09/16 09:00 09/13/16 08:53 (Lacrilube Opht Oint) 1 applic BID EACH EYE 09/09/16 21:00 09/13/16 08:54 (Peridex 0.12% Liq) 15 ml BID@08,20 MT 09/10/16 20:00 09/12/16 07:37 (Albumin 25% Inj) 25 gm Q12H IV 09/11/16 06:00 09/13/16 18:01 09/13/16 04:50 Docusate Sodium 100 mg 100 mg BID PO 09/11/16 10:00 09/13/16 08:52 (Levaquin 750 Mg Premix Inj) 150 ml @ 100 mls/hr Q48H IV 09/12/16 09:00 09/12/16 09:35 Bumetanide 1 mg 1 mg Q8H IV PUSH 09/12/16 09:00 Hold 09/13/16 08:52 Piperacillin Sod/ Tazobactam Sod 50 ml @ 100 mls/hr Q6H IV 09/12/16 14:00 09/13/16 08:52 (NS 1000 ml Inj) 1,000 ml @ 42 mls/hr [id number] IV 09/13/16 11:00 Vital Signs / I&O Vital Signs Date Time Temp Pulse Resp B/P Pulse Ox O2 Delivery O2 Flow Rate FiO2 09/13/16 11:00 98.5 118 20 162/101 98 09/13/16 11:00 98 Nasal Cannula 4.00 09/13/16 07:28 94 Nasal Cannula 2.00 09/13/16 07:00 110 09/13/16 07:00 97 Nasal Cannula 4.00 09/13/16 07:00 99.2 110 20 133/84 97 09/13/16 05:00 138/84 09/13/16 03:00 97 Nasal Cannula 2.00 09/13/16 03:00 100.4 112 20 162/91 98 09/13/16 03:00 84 09/12/16 23:00 87 09/12/16 23:00 98.9 94 20 156/86 98 09/12/16 23:00 95 Room Air 09/12/16 19:15 98.7 105 16 141/84 97 09/12/16 19:00 96 09/12/16 19:00 97 Nasal Cannula 2.00 09/12/16 15:39 98 09/12/16 15:34 99.2 97 18 143/93 97 09/12/16 15:32 98 Nasal Cannula 4.00 I/O 09/12/16 09/12/16 09/12/16 09/13/16 09/13/16 09/13/16 07:00 15:00 23:00 07:00 15:00 23:00 Intake Total 13 ml 309 ml 660 ml Output Total 3800 ml 2750 ml 1325 ml Balance -3787 ml -2441 ml -665 ml IV Total 13 ml 250 ml 100 ml Tube Feeding 59 ml 370 ml Albumin 100 ml Tube Irrigant 90 ml Output Urine Total 3800 ml 2750 ml 1325 ml # Bowel Movements 0 1 4 Physical Exam GENERAL: In NAD SKIN: Warm and dry. HEAD: Normocephalic. Facial asymetry. EYES: No scleral icterus. No injection or drainage. NECK: Supple, trachea midline. No JVD or lymphadenopathy. CARDIOVASCULAR: Regular rate and rhythm without murmurs, gallops, or rubs. RESPIRATORY: Breath sounds equal bilaterally. No accessory muscle use. GASTROINTESTINAL: Abdomen soft, non-tender, nondistended, obese MUSCULOSKELETAL: No cyanosis, or edema. Groins stable. NEURO: aphasic Laboratory Laboratory Tests Test 09/13/16 08:03 White Blood Count 12.4 TH/MM3 Red Blood Count 4.22 MIL/MM3 Hemoglobin 12.6 GM/DL Hematocrit 38.0 % Mean Corpuscular Volume 89.9 FL Mean Corpuscular Hemoglobin 29.8 PG Mean Corpuscular Hemoglobin 33.1 % Concent Red Cell Distribution Width 15.3 % Platelet Count 257 TH/MM3 Mean Platelet Volume 8.7 FL Neutrophils (%) (Auto) 86.5 % Lymphocytes (%) (Auto) 3.1 % Monocytes (%) (Auto) 9.8 % Eosinophils (%) (Auto) 0.3 % Basophils (%) (Auto) 0.3 % Neutrophils # (Auto) 10.7 TH/MM3 Lymphocytes # (Auto) 0.4 TH/MM3 Monocytes # (Auto) 1.2 TH/MM3 Eosinophils # (Auto) 0.0 TH/MM3 Basophils # (Auto) 0.0 TH/MM3 CBC Comment DIFF FINAL Differential Comment Sodium Level 143 MEQ/L Potassium Level 3.3 MEQ/L Chloride Level 102 MEQ/L Carbon Dioxide Level 28.5 MEQ/L Anion Gap 13 MEQ/L Blood Urea Nitrogen 70 MG/DL Creatinine 5.40 MG/DL Estimat Glomerular Filtration 11 ML/MIN Rate Random Glucose 268 MG/DL Calcium Level 9.1 MG/DL Total Bilirubin 0.8 MG/DL Aspartate Amino Transf 56 U/L (AST/SGOT) Alanine Aminotransferase 48 U/L (ALT/SGPT) Alkaline Phosphatase 72 U/L Total Protein 8.5 GM/DL Albumin 3.6 GM/DL Imaging Last Impressions Chest X-Ray 09/12/16 0600 Signed Impressions: Service Date/Time: Monday, September 12, 2016 03:48 - CONCLUSION: No significant change has occurred. Curtis Bartlett MD Carotid Artery Ultrasound 09/10/16 0000 Signed Impressions: Service Date/Time: Saturday, September 10, 2016 09:37 - CONCLUSION: Nondiagnostic examination. Joey Leigh MD Brain MRI 09/09/16 0000 Signed Impressions: Service Date/Time: August 16:36 - CONCLUSION: 1. Findings demonstrate an acute infarction in the left sylvian region, nonhemorrhagic. 2. Small air-fluid level right maxillary sinus and mild bilateral ethmoid sinus disease. Suresh Diaz MD Renal Ultrasound 09/08/16 0000 Signed Impressions: Service Date/Time: Thursday, September 08, 2016 16:04 - CONCLUSION: Large 6.3 cm cyst lower pole laterally left kidney. No evidence of hydronephrosis or obstructive uropathy.. Christian Cooper MD Head CT 09/07/16 0000 Signed Impressions: Service Date/Time: Wednesday, September 07, 2016 22:08 - CONCLUSION: No acute intracranial abnormality. Sinus disease and supraorbital soft tissue swelling. Michael Vasquez MD Assessment and Plan Problem List: (1) Unstable angina (2) CAD (coronary artery disease) of bypass graft (3) CHF (congestive heart failure), NYHA class II (4) Cardiomyopathy, ischemic (5) Chronic kidney disease (6) Suspected cerebrovascular accident (7) Abnormal nuclear stress test Assessment and Plan Continue ICU monitoring. Continue Plavix and ASA per NG to prevent stent thrombosis. PEG placement planned. BP controlled. Neurology evaluation and management for CVA confirmed by MRI, EEG today. No evidence of ICH. Groins remain stable. Renal fx worse, continue close monitoring. No new cardiac issues. Problem Qualifiers (1) Chronic kidney disease: Qualified Code: N18.4 - Chronic kidney disease, stage 4 (severe) Martha Cummins MD Sep 13, 2016 12:20
[2016-09-13] MEDS: SODIUM CHLOR 0.9% 1000 ML INJ 1,000 ML IV SCH (13:01)
--- NOTE | 2016-09-13 14:24 | HHI.PR ---
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 then switch to anticoagulation ferry terminal agent 09/13 very much unchanged neuro status little less agitated and still neglecting right side and moves left much better retry carotid us I wonder if stroke is from cardio embolism and if cardio feels relatively high risk for cardio embolism then anticoagulation might be in his best Subjective Subjective Comments No acute events reported No headache No chest pain No dyspnea Active Medications Current Medications Medications (Trade) Dose Ordered Sig/Eric Route Start Time Stop Time Status Last Admin (Ecotrin Ec) 81 mg DAILY PO 09/08/16 09:00 09/13/16 08:52 (Lipitor) 40 mg HS PO 09/07/16 21:30 09/12/16 20:14 (Plavix) 75 mg DAILY PO 09/08/16 09:00 09/13/16 08:52 (Imdur) 60 mg DAILY@07 PO 09/08/16 07:00 09/13/16 06:12 (NS Flush) 2 ml UNSCH PRN IV FLUSH 09/07/16 21:30 (NS Flush) 2 ml BID IV FLUSH 09/08/16 09:00 09/13/16 08:54 (Tylenol) 650 mg Q6H PRN PO 09/07/16 21:30 09/10/16 20:29 (Morphine Inj) 2 mg Q2H PRN IV 09/07/16 21:30 09/09/16 01:00 (Pepcid Inj) 20 mg Q24H IV PUSH 09/08/16 09:00 09/13/16 08:53 (Ativan Inj) 0.5 mg Q2HR PRN IV 09/07/16 21:30 09/13/16 04:48 (Zofran Inj) 4 mg Q6H PRN IV 09/07/16 21:30 09/08/16 22:00 (Reglan Inj) 5 mg Q6H PRN IV 09/07/16 21:30 Miscellaneous Information 1 Q361D XX 09/07/16 21:30 (Chlorhexidine 2% Cloth) Taper DAILY@04 TOP 09/08/16 04:00 09/04/17 03:59 09/13/16 04:00 (Chlorhexidine 2% Cloth) 3 pack UNSCH PRN TOP 09/07/16 21:30 (Apresoline Inj) 20 mg Q4H PRN IV PUSH 09/08/16 04:30 09/13/16 04:48 (D50w (Vial) Inj) 25 ml UNSCH PRN IV PUSH 09/08/16 12:45 (Glucagon Inj) 1 mg UNSCH PRN OTHER 09/08/16 12:45 (NovoLIN R SUPPLEMENTAL SCALE) 1 Q4H SQ 09/08/16 13:00 09/13/16 13:42 (Lopressor) 50 mg Q8H PO 09/09/16 14:00 09/13/16 13:41 (Heparin Inj) 5,000 units Q12HR SQ 09/09/16 09:00 09/13/16 08:53 (Lacrilube Opht Oint) 1 applic BID EACH EYE 09/09/16 21:00 09/13/16 08:54 (Peridex 0.12% Liq) 15 ml BID@08,20 MT 09/10/16 20:00 09/12/16 07:37 (Albumin 25% Inj) 25 gm Q12H IV 09/11/16 06:00 09/13/16 18:01 09/13/16 04:50 Docusate Sodium 100 mg 100 mg BID PO 09/11/16 10:00 09/13/16 08:52 (Levaquin 750 Mg Premix Inj) 150 ml @ 100 mls/hr Q48H IV 09/12/16 09:00 09/12/16 09:35 Bumetanide 1 mg 1 mg Q8H IV PUSH 09/12/16 09:00 Hold 09/13/16 08:52 Piperacillin Sod/ Tazobactam Sod 50 ml @ 100 mls/hr Q6H IV 09/12/16 14:00 09/13/16 13:40 (NS 1000 ml Inj) 1,000 ml @ 42 mls/hr [id number] IV 09/13/16 11:00 09/13/16 13:01 Allergies Allergies Coded Allergies No Known Allergies (Verified09/07/16) Exam I&O / VS 09/12/16 09/12/16 09/13/16 15:00 23:00 07:00 Intake Total 309 ml 660 ml Output Total 2750 ml 1325 ml Balance -2441 ml -665 ml IV Total 250 ml 100 ml Tube Feeding 59 ml 370 ml Albumin 100 ml Tube Irrigant 90 ml Output Urine Total 2750 ml 1325 ml # Bowel Movements 1 4 Vital Signs Date Time Temp Pulse Resp B/P Pulse Ox O2 Delivery O2 Flow Rate FiO2 09/13/16 11:00 118 09/13/16 11:00 98.5 118 20 162/101 98 09/13/16 11:00 98 Nasal Cannula 4.00 09/13/16 07:28 94 Nasal Cannula 2.00 09/13/16 07:00 110 09/13/16 07:00 97 Nasal Cannula 4.00 09/13/16 07:00 99.2 110 20 133/84 97 09/13/16 05:00 138/84 09/13/16 03:00 97 Nasal Cannula 2.00 09/13/16 03:00 100.4 112 20 162/91 98 09/13/16 03:00 84 09/12/16 23:00 87 09/12/16 23:00 98.9 94 20 156/86 98 09/12/16 23:00 95 Room Air 09/12/16 19:15 98.7 105 16 141/84 97 09/12/16 19:00 96 09/12/16 19:00 97 Nasal Cannula 2.00 09/12/16 15:39 98 09/12/16 15:34 99.2 97 18 143/93 97 09/12/16 15:32 98 Nasal Cannula 4.00 Objective Radiology Results Last 48 hours Impressions Chest X-Ray 09/12/16 0600 Signed Impressions: Service Date/Time: Monday, September 12, 2016 03:48 - CONCLUSION: No significant change has occurred. Curtis Bartlett MD Micro and Labs Laboratory Tests Test 09/13/16 08:03 White Blood Count 12.4 Red Blood Count 4.22 Hemoglobin 12.6 Hematocrit 38.0 Mean Corpuscular Volume 89.9 Mean Corpuscular Hemoglobin 29.8 Mean Corpuscular Hemoglobin 33.1 Concent Red Cell Distribution Width 15.3 Platelet Count 257 Mean Platelet Volume 8.7 Neutrophils (%) (Auto) 86.5 Lymphocytes (%) (Auto) 3.1 Monocytes (%) (Auto) 9.8 Eosinophils (%) (Auto) 0.3 Basophils (%) (Auto) 0.3 Neutrophils # (Auto) 10.7 Lymphocytes # (Auto) 0.4 Monocytes # (Auto) 1.2 Eosinophils # (Auto) 0.0 Basophils # (Auto) 0.0 CBC Comment DIFF FINAL Differential Comment Sodium Level 143 Potassium Level 3.3 Chloride Level 102 Carbon Dioxide Level 28.5 Anion Gap 13 Blood Urea Nitrogen 70 Creatinine 5.40 Estimat Glomerular Filtration 11 Rate Random Glucose 268 Calcium Level 9.1 Total Bilirubin 0.8 Aspartate Amino Transf 56 (AST/SGOT) Alanine Aminotransferase 48 (ALT/SGPT) Alkaline Phosphatase 72 Total Protein 8.5 Albumin 3.6 Date/Time Procedure Status Source Growth 09/10/16 11:05 Aerobic Blood Culture - Preliminary Resulted Blood Peripheral NO GROWTH IN 3 DAYS 09/10/16 11:05 Anaerobic Blood Culture - Preliminary Resulted Blood Peripheral NO GROWTH IN 3 DAYS 09/10/16 08:00 Gram Stain - Final Complete Sputum Endotracheal 09/10/16 08:00 Sputum Culture - Final Complete Sputum Endotracheal HEAVY GROWTH NORMAL RESPIRATORY ADAL 09/08/16 17:40 Urine Culture - Final Complete Urine Catheterized Urine Enterococcus Faecalis Shahnaz Nguyen MD Sep 13, 2016 14:24
--- NOTE | 2016-09-13 14:51 | MG ---
cc: JANINA SALVADOR M.D. Lab No: [id number] Date: 09/13/2016 Age: Sex: M TECHNIQUE 17-channel EEG. DESCRIPTION The background rhythm reveals symmetrical alpha rhythm, frequency 8 Hz. During drowsiness there is slowing in the theta range at roughly 6 Hz. Amplitude is about 10-20 microvolts. There is some muscle artifact. There are no lateralizing features. There are no epileptiform discharges. Photic stimulation was done in a stepwise fashion with a normal driving response. INTERPRETATION This is a normal EEG. MD HOMERO Castellanos/NIKKI /2:38 PM /2:44 PM
[2016-09-13] MEDS: RESP: ALBUTEROL 2.5 MG/IPRATROPIUM 0.5 MG NEB (SCH) NEB ×2 (15:21→21:15)
[2016-09-13 18:34] LABS: BLOOD GAS BASE EXCESS 2.8 mmol/L (-2-2); BLOOD GAS CARBOXYHEMOGLOBIN 1.4 % (0-4); BLOOD GAS HCO3 27 mmol/L (22-26); BLOOD GAS METHEMOGLOBIN 1.2 % (0-2); BLOOD GAS O2 HGB SATURATION 95 % (90-100); BLOOD GAS OXYGEN CONTENT 16.6 Vol % (12.0-20.0); BLOOD GAS PCO2 47 mmHg (38-42); BLOOD GAS PO2 105 mmHg (61-120); BLOOD GAS TOTAL HGB 12.3 G/DL (12.0-16.0); CRITICAL VALUE NO; DRAW SITE RT RADIAL; LITER FLOW 3 L/M; NUMBER OF ARTERIAL PUNCTURES 1; OXYGEN DEVICE NASAL CANNULA; STAT YES; TEMP CORR TO 98.6; ULNAR PULSE PRESENT
--- NOTE | 2016-09-13 18:45 | RADRPT ---
EXAM DATE/TIME: 09/13/2016 16:46 [facility] COMPARISON: US CAROTID ARTERIES, September 10, 2016, 9:37. INDICATIONS : Stroke. MEDICAL HISTORY : Myocardial infarction. Hypercholesterolemia. Diverticulitis. Cerebrovascular accident. Dyspnea. Sleep apnea. Hypertension. Gastroesophageal reflux disease. Enlarged prostate. Arthritis. Diabetes. SURGICAL HISTORY : CABG. Coronary artery stent. Right cataract surgery. Cardiac catheterization. Prostate surgery to h elp with urination. Nasal surgery. Bilateral knee replacements. ENCOUNTER: Subsequent ACUITY: 1 week PAIN SCORE: Nonresponsive. LOCATION: Bilateral neck PEAK SYSTOLIC VELOCITIES (cm/sec): ICA/CCA RATIO: Right: 0.9 Left: 1.1 ICA: Right: 95 Left: 100 CCA: Right: 107 Left: 89 ECA: Right: 138 Left: 151 VERTEBRAL: Right: Non visualized. Left: Non visualized. Elevated flow velocities and ICA/CCA ratios have been found to correlate with increased degrees of vessel stenosis, calculated as percentage of diameter relative to a normal segment of distal ICA/CCA FINDINGS: RIGHT CAROTID: Significant heterogeneous plaque is identified. The proximal internal carotid artery is poorly visual ized and velocities sampling was difficult to obtain. LEFT CAROTID: Significant heterogeneous plaque is identified in the bifurcation. The proximal carotid artery is dif ficult to visualized in adequate velocities sampling can not be obtained. VERTEBRAL ARTERIES: Could not be visualized. MISCELLANEOUS: None. CONCLUSION: Significant plaque remains evident in the carotid bifurcations. Poor visualization and difficulty all ocity sampling of the proximal internal carotid arteries was again encountered. Significant carotid stenosis cannot be excluded. Nonvisualization of the vertebral arteries. Mack Brizuela MD on September 13, 2016 at 18:38 Board Certified Radiologist. This report was verified electronically.
[2016-09-13 19:48] LABS: HEMATOCRIT 36.4 % (39.0-51.0); MEAN CELL VOLUME 89.7 FL (80.0-100.0); MEAN CORPUSCULAR HEMOGLOBIN 29.8 PG (27.0-34.0); MEAN CORPUSCULAR HGB CONC 33.2 % (32.0-36.0); PLATELET COUNT 241 TH/MM3 (150-450); RED BLOOD COUNT 4.06 MIL/MM3 (4.50-5.90); RED CELL DISTRIBUTION WIDTH 15.5 % (11.6-17.2); REVIEW FLAG FINAL; WHITE BLOOD COUNT 12.3 TH/MM3 (4.0-11.0)
[2016-09-13] MEDS: ATORVASTATIN 40 MG TAB PO SCH (20:51)
[2016-09-13] MEDS: PANTOPRAZOLE SODIUM 40 MG VIAL IV PUSH SCH (21:27)
--- NOTE | 2016-09-13 23:04 | HHI.GIFU ---
Subjective Remarks Lethargic poorly responsive Objective Vitals I&O Vital Signs Date Time Temp Pulse Resp B/P Pulse Ox O2 Delivery O2 Flow Rate FiO2 09/13/16 21:15 97 Nasal Cannula 3.00 09/13/16 18:00 112 09/13/16 18:00 95 Nasal Cannula 3.00 09/13/16 18:00 98.3 113 24 159/88 95 09/13/16 15:00 95 Nasal Cannula 3.00 09/13/16 15:00 99.0 115 20 162/99 96 09/13/16 15:00 118 09/13/16 11:00 118 09/13/16 11:00 98.5 118 20 162/101 98 09/13/16 11:00 98 Nasal Cannula 4.00 09/13/16 07:28 94 Nasal Cannula 2.00 09/13/16 07:00 110 09/13/16 07:00 97 Nasal Cannula 4.00 09/13/16 07:00 99.2 110 20 133/84 97 09/13/16 05:00 138/84 09/13/16 03:00 97 Nasal Cannula 2.00 09/13/16 03:00 100.4 112 20 162/91 98 09/13/16 03:00 84 09/12/16 23:00 87 09/12/16 23:00 98.9 94 20 156/86 98 09/12/16 23:00 95 Room Air I/O 09/12/16 09/12/16 09/12/16 09/13/16 09/13/16 09/13/16 07:00 15:00 23:00 07:00 15:00 23:00 Intake Total 13 ml 309 ml 660 ml 695 ml Output Total 3800 ml 2750 ml 1325 ml 315 ml Balance -3787 ml -2441 ml -665 ml 380 ml Intake Oral 0 ml IV Total 13 ml 250 ml 100 ml 221 ml Tube Feeding 59 ml 370 ml 474 ml Albumin 100 ml Tube Irrigant 90 ml Output Urine Total 3800 ml 2750 ml 1325 ml 315 ml # Bowel Movements 0 1 4 1 Laboratory Laboratory Tests Test 09/13/16 09/13/16 09/13/16 08:03 18:25 18:43 White Blood Count 12.4 12.3 Red Blood Count 4.22 4.06 Hemoglobin 12.6 12.1 Hematocrit 38.0 36.4 Mean Corpuscular Volume 89.9 89.7 Mean Corpuscular Hemoglobin 29.8 29.8 Mean Corpuscular Hemoglobin 33.1 33.2 Concent Red Cell Distribution Width 15.3 15.5 Platelet Count 257 241 Mean Platelet Volume 8.7 8.6 Neutrophils (%) (Auto) 86.5 Lymphocytes (%) (Auto) 3.1 Monocytes (%) (Auto) 9.8 Eosinophils (%) (Auto) 0.3 Basophils (%) (Auto) 0.3 Neutrophils # (Auto) 10.7 Lymphocytes # (Auto) 0.4 Monocytes # (Auto) 1.2 Eosinophils # (Auto) 0.0 Basophils # (Auto) 0.0 CBC Comment DIFF FINAL Differential Comment Sodium Level 143 Potassium Level 3.3 Chloride Level 102 Carbon Dioxide Level 28.5 Anion Gap 13 Blood Urea Nitrogen 70 Creatinine 5.40 Estimat Glomerular Filtration 11 Rate Random Glucose 268 Calcium Level 9.1 Total Bilirubin 0.8 Aspartate Amino Transf 56 (AST/SGOT) Alanine Aminotransferase 48 (ALT/SGPT) Alkaline Phosphatase 72 Total Protein 8.5 Albumin 3.6 Blood Gas Puncture Site RT RADIAL Blood Gas Patient Temperature 98.6 Blood Gas HCO3 27 Blood Gas Base Excess 2.8 Blood Gas Oxygen Saturation 95 Arterial Blood pH 7.38 Arterial Blood Partial 47 Pressure CO2 Arterial Blood Partial 105 Pressure O2 Arterial Blood Oxygen Content 16.6 Arterial Blood 1.4 Carboxyhemoglobin Arterial Blood Methemoglobin 1.2 Blood Gas Hemoglobin 12.3 Oxygen Delivery Device NASAL CANNULA Blood Gas Liter Flow 3 Date/Time Procedure Status Source Growth 09/10/16 11:05 Aerobic Blood Culture - Preliminary Resulted Blood Peripheral NO GROWTH IN 3 DAYS 09/10/16 11:05 Anaerobic Blood Culture - Preliminary Resulted Blood Peripheral NO GROWTH IN 3 DAYS 09/10/16 08:00 Gram Stain - Final Complete Sputum Endotracheal 09/10/16 08:00 Sputum Culture - Final Complete Sputum Endotracheal HEAVY GROWTH NORMAL RESPIRATORY ADAL Imaging Last Impressions Carotid Artery Ultrasound 09/13/16 0000 Signed Impressions: Service Date/Time: Tuesday, September 13, 2016 16:46 - CONCLUSION: Significant plaque remains evident in the carotid bifurcations. Poor visualization and difficulty velocity sampling of the proximal internal carotid arteries was again encountered. Significant carotid stenosis cannot be excluded. Nonvisualization of the vertebral arteries. Mack Brizuela MD Chest X-Ray 09/12/16 0600 Signed Impressions: Service Date/Time: Monday, September 12, 2016 03:48 - CONCLUSION: No significant change has occurred. Curtis Bartlett MD Brain MRI 09/09/16 0000 Signed Impressions: Service Date/Time: August 16:36 - CONCLUSION: 1. Findings demonstrate an acute infarction in the left sylvian region, nonhemorrhagic. 2. Small air-fluid level right maxillary sinus and mild bilateral ethmoid sinus disease. Suresh Diaz MD Renal Ultrasound 09/08/16 0000 Signed Impressions: Service Date/Time: Thursday, September 08, 2016 16:04 - CONCLUSION: Large 6.3 cm cyst lower pole laterally left kidney. No evidence of hydronephrosis or obstructive uropathy.. Christian Cooper MD Head CT 09/07/16 0000 Signed Impressions: Service Date/Time: Wednesday, September 07, 2016 22:08 - CONCLUSION: No acute intracranial abnormality. Sinus disease and supraorbital soft tissue swelling. Michael Vasquez MD Physical Exam HEENT: normocephalic; atraumatic; no jaundice. Throat is clear. NG tube in place NECK: Supple. CHEST: Chest is clear to auscultation and percussion. CARDIAC: Regular rate and rhythm with no murmur gallop or rubs. ABDOMEN: Soft, nondistended, nontender; no hepatosplenomegaly; bowel sounds are present in all four quadrants. EXTREMITIES: No clubbing, cyanosis, or edema. SKIN: Normal; no rash; no jaundice. [place]: Lethargic Assessment and Plan Plan Patient with known history of coronary artery disease and a recent CABG who also apparently had recent CVA was intubated and now is extubated but lethargic and at this point a PEG placement may be reasonable but also it may be reasonable to hold off at this point and monitor improvement we will continue with current supportive measures and the case will be further discussed with attending physician and cardiology patient somewhat of a high risk for PEG placement with anticoagulants on board and antiplatelets For now supportive care and further recommendations shall depend on hospital course aRngel Kent MD Sep 13, 2016 23:04
[2016-09-14] VITALS (16 sets, daily range): BP systolic 126–177; BP diastolic 65–96; PULSE 109–135; RESP 18–32; TEMP 98.4–100.9; O2SAT 95–100
[2016-09-14] MEDS: PIPERACIL-TAZO 2.25 GM PREMIX 50 ML IV SCH ×4 (01:26→20:27)
[2016-09-14] MEDS: INSULIN NovoLIN REGULAR SUPPLEMENTAL SCALE SQ SCH ×7 (01:27→23:58)
[2016-09-14] MEDS: CHLORHEXIDINE GLUCONATE 2 % 1 PACK (2 CLOTHS) TOP SCH (04:00)
[2016-09-14] MEDS: RESP: ALBUTEROL 2.5 MG/IPRATROPIUM 0.5 MG NEB (SCH) NEB ×4 (04:05→19:39)
[2016-09-14] MEDS: ISOSORBIDE MONONITRATE 60 MG TAB PO SCH (04:48)
[2016-09-14] MEDS: METOPROLOL TARTRATE 50 MG TAB PO SCH ×3 (04:48→20:56)
[2016-09-14] MEDS: ARTIFICIAL TEARS OPTH OINT 3.5 APPLIC/3.5 GM TUBO EACH EYE SCH ×3 (04:50→20:31)
[2016-09-14 06:15] LABS: AUTOMATED NEUTROPHIL # 11.6 TH/MM3 (1.8-7.7); BASOPHIL # 0.1 TH/MM3 (0-0.2); BASOPHIL % 0.5 % (0.0-2.0); EOSINOPHIL # 0.2 TH/MM3 (0-0.4); EOSINOPHIL % 1.5 % (0.0-4.0); HEMATOCRIT 38.4 % (39.0-51.0); HEMO FLAGS DIFF FINAL; LYMPHOCYTE # 0.7 TH/MM3 (1.0-4.8); MEAN CORPUSCULAR HEMOGLOBIN 29.9 PG (27.0-34.0); MEAN CORPUSCULAR HGB CONC 33.2 % (32.0-36.0); MONO % 12.2 % (0.0-8.0); NEUT % 80.8 % (16.0-70.0); PLATELET COUNT 269 TH/MM3 (150-450); RED BLOOD COUNT 4.27 MIL/MM3 (4.50-5.90); RED CELL DISTRIBUTION WIDTH 15.2 % (11.6-17.2); WHITE BLOOD COUNT 14.4 TH/MM3 (4.0-11.0)
--- NOTE | 2016-09-14 06:46 | RADRPT ---
EXAM DATE/TIME: 09/14/2016 04:58 [facility] COMPARISON: CHEST SINGLE AP, September 12, 2016, 3:48. INDICATIONS : Respiratory disease. MEDICAL HISTORY : Myocardial infarction. Hypertension. SURGICAL HISTORY : CABG. Coronary artery stent. ENCOUNTER: Initial ACUITY: 1 day PAIN SCORE: Non-responsive. LOCATION: Bilateral chest FINDINGS: A single view of the chest demonstrates cardiomegaly. Postop CABG. NG is seen traversing the esophagu s but tip is not visualized. No pneumothorax. CONCLUSION: 1. Cardiomegaly. Minimal basilar airspace disease probably atelectasis. Javi Dunn MD on September 14, 2016 at 6:43 Board Certified Radiologist. This report was verified electronically.
[2016-09-14 07:01] LABS: ALKALINE PHOSPHATASE 63 U/L (45-117); ALT (GPT) 37 U/L (12-78); ANION GAP 14 MEQ/L (5-15); AST (GOT) 27 U/L (15-37); BICARBONATE 25.9 MEQ/L (21.0-32.0); BLOOD UREA NITROGEN 85 MG/DL (7-18); CHLORIDE 106 MEQ/L (98-107); GLOMERULAR FILTRATION RATE 7 ML/MIN (>89); POTASSIUM 3.4 MEQ/L (3.5-5.1); SODIUM (NA) 146 MEQ/L (136-145); TOTAL BILIRUBIN ADULT 0.7 MG/DL (0.2-1.0)
--- NOTE | 2016-09-14 07:52 | HHI.CCPN ---
Subjective Remarks/Hospital Course 66-year-old gentleman with a history of coronary artery disease status post CABG underwent emergent cardiac catheterization by Dr. Cummins. Postprocedure his course is complicated by aphasia and right-sided weakness. 09/08 Patient was on BIPAP 14/7 with FIO2 25%. On Precedex and heparin drips. CT brain showed last night showed no acute process. Impela was removed this morning by Dr. Cummins. T:99.9 Renal function improving with Cr:2.5 from 3.0 hyperkalemic with K 6.1 09/09: Overnight remained on BiPAP predominantly for sleep apnea. Intermittently follows commands. Will check MRI of the brain today. Creatinine slightly worsened to 2.8. Consulted nephrology, hyperkalemia resolved 09/10: Remains on BiPAP, some interval worsening of respiratory status. Patient is more tachypneic chest x-ray shows left lower lobe infiltrate .Currently sedated with 0.5 g per KG per hour of Precedex. I will discontinue Precedex. MRI brain shows acute infarct left sylvian region. Creatinine slightly worse at 3. Low-grade fever Tmax 100.2, send blood and sputum culture and start Zosyn 09/11: Patient was intubated yesterday for progressively worsening respiratory failure, hypoxemia and altered mentation. On ventilator support patient's oxygenation has improved. He moves all extremities do not following commands. Chest x-ray shows no definite infiltrates 09/12: Extubated yesterday tolerating well oxygenation varghese and protecting airway. No fevers. Urine output 3.8 L in 24 hours with creatinine worsening from 3.9 to 4.5 today. Remains aphasic not following commands 09/13: Somnolent, received Ativan for agitation overnight. Urine output 4 L in 24 hours. Labs are pending at this time. Opens eyes to verbal stimulation, remains aphasic and did not follow commands 09/14 Patient appears somnolent. On no sedation. Renal function worse today with Cr: 7.31 from 5.40 and UO: 715ml in 24hrs. T:100.9 this morning. Remains aphasic. Objective Vital Signs Date Time Temp Pulse Resp B/P Pulse Ox O2 Delivery O2 Flow Rate FiO2 09/14/16 06:00 116 09/14/16 04:00 99.1 19 139/96 96 09/14/16 04:00 Nasal Cannula 4.00 09/11/16 13:00 40 Intake and Output 09/13/16 09/13/16 09/14/16 08:00 16:00 00:00 Intake Total 660 ml 948 ml Output Total 1325 ml 565 ml Balance -665 ml 383 ml Result Diagram: 09/14/16 0557 09/14/16 0551 Other Results Laboratory Tests Test 09/13/16 09/13/16 09/13/16 09/14/16 08:03 18:25 18:43 05:51 White Blood Count 12.4 TH/MM3 12.3 TH/MM3 Red Blood Count 4.22 MIL/MM3 4.06 MIL/MM3 Hemoglobin 12.6 GM/DL 12.1 GM/DL Hematocrit 38.0 % 36.4 % Mean Corpuscular Volume 89.9 FL 89.7 FL Mean Corpuscular Hemoglobin 29.8 PG 29.8 PG Mean Corpuscular Hemoglobin 33.1 % 33.2 % Concent Red Cell Distribution Width 15.3 % 15.5 % Platelet Count 257 TH/MM3 241 TH/MM3 Mean Platelet Volume 8.7 FL 8.6 FL Neutrophils (%) (Auto) 86.5 % Lymphocytes (%) (Auto) 3.1 % Monocytes (%) (Auto) 9.8 % Eosinophils (%) (Auto) 0.3 % Basophils (%) (Auto) 0.3 % Neutrophils # (Auto) 10.7 TH/MM3 Lymphocytes # (Auto) 0.4 TH/MM3 Monocytes # (Auto) 1.2 TH/MM3 Eosinophils # (Auto) 0.0 TH/MM3 Basophils # (Auto) 0.0 TH/MM3 CBC Comment DIFF FINAL Differential Comment Sodium Level 143 MEQ/L 146 MEQ/L Potassium Level 3.3 MEQ/L 3.4 MEQ/L Chloride Level 102 MEQ/L 106 MEQ/L Carbon Dioxide Level 28.5 MEQ/L 25.9 MEQ/L Anion Gap 13 MEQ/L 14 MEQ/L Blood Urea Nitrogen 70 MG/DL 85 MG/DL Creatinine 5.40 MG/DL 7.31 MG/DL Estimat Glomerular Filtration 11 ML/MIN 7 ML/MIN Rate Random Glucose 268 MG/DL 225 MG/DL Calcium Level 9.1 MG/DL 9.2 MG/DL Total Bilirubin 0.8 MG/DL 0.7 MG/DL Aspartate Amino Transf 56 U/L 27 U/L (AST/SGOT) Alanine Aminotransferase 48 U/L 37 U/L (ALT/SGPT) Alkaline Phosphatase 72 U/L 63 U/L Total Protein 8.5 GM/DL 8.5 GM/DL Albumin 3.6 GM/DL 3.5 GM/DL Blood Gas Puncture Site RT RADIAL Blood Gas Patient Temperature 98.6 Blood Gas HCO3 27 mmol/L Blood Gas Base Excess 2.8 mmol/L Blood Gas Oxygen Saturation 95 % Arterial Blood pH 7.38 Arterial Blood Partial 47 mmHg Pressure CO2 Arterial Blood Partial 105 mmHg Pressure O2 Arterial Blood Oxygen Content 16.6 Vol % Arterial Blood 1.4 % Carboxyhemoglobin Arterial Blood Methemoglobin 1.2 % Blood Gas Hemoglobin 12.3 G/DL Oxygen Delivery Device NASAL CANNULA Blood Gas Liter Flow 3 L/M Test 09/14/16 05:57 White Blood Count 14.4 TH/MM3 Red Blood Count 4.27 MIL/MM3 Hemoglobin 12.8 GM/DL Hematocrit 38.4 % Mean Corpuscular Volume 90.0 FL Mean Corpuscular Hemoglobin 29.9 PG Mean Corpuscular Hemoglobin 33.2 % Concent Red Cell Distribution Width 15.2 % Platelet Count 269 TH/MM3 Mean Platelet Volume 8.6 FL Neutrophils (%) (Auto) 80.8 % Lymphocytes (%) (Auto) 5.0 % Monocytes (%) (Auto) 12.2 % Eosinophils (%) (Auto) 1.5 % Basophils (%) (Auto) 0.5 % Neutrophils # (Auto) 11.6 TH/MM3 Lymphocytes # (Auto) 0.7 TH/MM3 Monocytes # (Auto) 1.8 TH/MM3 Eosinophils # (Auto) 0.2 TH/MM3 Basophils # (Auto) 0.1 TH/MM3 CBC Comment DIFF FINAL Differential Comment Imaging Last Impressions Chest X-Ray 09/14/16 0600 Signed Impressions: Service Date/Time: Wednesday, September 14, 2016 04:58 - CONCLUSION: 1. Cardiomegaly. Minimal basilar airspace disease probably atelectasis. Javi Dunn MD Carotid Artery Ultrasound 09/13/16 0000 Signed Impressions: Service Date/Time: Tuesday, September 13, 2016 16:46 - CONCLUSION: Significant plaque remains evident in the carotid bifurcations. Poor visualization and difficulty velocity sampling of the proximal internal carotid arteries was again encountered. Significant carotid stenosis cannot be excluded. Nonvisualization of the vertebral arteries. Mack Brizuela MD Brain MRI 09/09/16 0000 Signed Impressions: Service Date/Time: August 16:36 - CONCLUSION: 1. Findings demonstrate an acute infarction in the left sylvian region, nonhemorrhagic. 2. Small air-fluid level right maxillary sinus and mild bilateral ethmoid sinus disease. Suresh Diaz MD Renal Ultrasound 09/08/16 0000 Signed Impressions: Service Date/Time: Thursday, September 08, 2016 16:04 - CONCLUSION: Large 6.3 cm cyst lower pole laterally left kidney. No evidence of hydronephrosis or obstructive uropathy.. Christian Cooper MD Head CT 09/07/16 0000 Signed Impressions: Service Date/Time: Wednesday, September 07, 2016 22:08 - CONCLUSION: No acute intracranial abnormality. Sinus disease and supraorbital soft tissue swelling. Michael Vasquez MD Objective Remarks GENERAL: Well-nourished, well-developed patient. On NC SKIN: Warm and dry. HEAD: Normocephalic. EYES: No scleral icterus. No injection or drainage. ENT: Oral cavity moist NECK: Supple, trachea midline. No JVD or lymphadenopathy. CARDIOVASCULAR: Regular rate and rhythm without murmurs, gallops, or rubs. RESPIRATORY: Breath sounds equal bilaterally. No accessory muscle use. GASTROINTESTINAL: Abdomen soft, non-tender, nondistended. MUSCULOSKELETAL: No cyanosis, or edema. BACK: Nontender without obvious deformity. EXTREMITIES: Somnolent but opens eyes to stimulation, aphasic. Blank stare, donot follow commands. Moving all extremities, weaker on R side A/P Problem List: (1) Acute ischemic left MCA stroke ICD Code: I63.512 Status: Acute (2) Acute renal failure ICD Code: N17.9 Status: Acute (3) CHF (congestive heart failure), NYHA class III ICD Code: I50.9 Status: Acute (4) Coronary artery disease involving [place] heart ICD Code: I25.10 Status: Chronic (5) HTN (hypertension) ICD Code: I10 Status: Acute (6) CKD (chronic kidney disease) ICD Code: N18.9 Status: Acute Assessment and Plan ASSESSMENT Acute left MCA stroke Aphasia with right hemiparesis Metabolic encephalopathy NSTEMI Known CAD Obstructive sleep apnea UTI with enterococcus HCAP Acute hypoxemic respiratory failure-resolved Acute on chronic kidney disease Hyperkalemia-resolved DM HTN LEONARD Hyperlipidemia Plan Neuro: -Monitor neuro status. Ativan PRN for agitation -MRI brain 09/09/16-acute left sylvian region infarct. CT brain 09/07: No acute disease. -Continue aspirin and Plavix. Neuro was following- Cr. Patrick. Will reconsult -09/13 EEG: within normal. Pulm: -Extubated 09/11 -Continue with oxygen keep sat >92% -Bronchodilators, aspiration precautions. CV: -Monitor HR and BP keep MAP>65mmHg -Continue with ASA, Plavix, Imdur 60mg daily, Lopressor 50mg q8. -s/p cardiac cath 09/07 showed multivessel disease with 2/6 grafts patent, EF 40% . s/p PCI with stents of the saphenous venous graft to the first diagonal artery. -s/p removal Impella 09/08. Cardiology- Dr. Cummins : -Monitor renal function, I/O's, avoid nephrotoxins. -Renal function worsening Cr: 7.31 from 5.40. UO: 715 ml in 24 hrs. -Renal-Dr. Naidu. May need HD. Off Bumex. Increase IVF NS@100ml/hr GI: - Continue NG tube, Nepro 09/12. On Protonix 40mg -GI consulted for PEG tube placement -Remains aphasic ID: -Monitor for signs of worsening infections ( Fever, WBC) -Continue Zosyn 3.375 g every 8 hours for probable aspiration pneumonia -UTI with enterococcus sensitive to Cipro. on Levaquin 09/12/16 -Panculture today for new onset fever ( Blood cx x 2 sets, sputum, UA) Heme: -Monitor CBC Endo: -SSI with accuchecks for glycemic control GI prophylaxis - on Protonix 40mg Q12 DVT prophylaxis - SCD, Heparin 5000 units subcutaneous every 12 Level 3 Problem Qualifiers (1) Acute renal failure: Qualified Code: N17.0 - Acute renal failure with tubular necrosis Leroy Urena MD Sep 14, 2016 07:52
[2016-09-14] MEDS: CHLORHEXIDINE 0.12% (ORAL KIT) 15 ML CUP MT SCH ×2 (08:00→20:57)
[2016-09-14] MEDS: PANTOPRAZOLE SODIUM 40 MG VIAL IV PUSH SCH ×2 (08:33→20:27)
[2016-09-14] MEDS: ASPIRIN EC 81 MG TABEC PO SCH (08:34)
[2016-09-14] MEDS: CLOPIDOGREL 75 MG TAB PO SCH (08:34)
[2016-09-14] MEDS: DOCUSATE SODIUM 100 MG/10 ML UDC PO SCH ×2 (08:34→20:28)
[2016-09-14] MEDS: LEVOFLOXACIN 750 MG PREMIX INJ 150 ML IV SCH (08:34)
[2016-09-14] MEDS: HEPARIN SODIUM - SQ 10,000 UNITS/ML VIAL SQ SCH ×2 (08:34→20:28)
[2016-09-14] MEDS: SODIUM CHLORIDE 0.9% FLUSH 5 ML FLUSH IV FLUSH SCH ×2 (08:35→20:28)
[2016-09-14] MEDS: SODIUM CHLOR 0.9% 1000 ML INJ 1,000 ML IV SCH ×2 (08:35→10:49)
--- NOTE | 2016-09-14 10:55 | HHI.NPPN ---
Subjective History of Present Illness 66-year-old male with history of coronary artery disease status post CABG, osteoarthritis, diabetes, hyperlipidemia who was admitted there with unstable angina and underwent heart catheterization found to have significant blockages requiring stent and impella device, he has acute renal failure. Additional Remarks Patient remain unresponsive off sedation and Vent Objective Data Data 09/13/16 09/14/16 19:00 07:00 Intake Total 695 ml 578 ml Output Total 315 ml 400 ml Balance 380 ml 178 ml Intake Oral 0 ml IV Total 221 ml 578 ml Tube Feeding 474 ml Output Urine Total 315 ml 400 ml # Bowel Movements 1 0 Vital Signs Date Time Temp Pulse Resp B/P Pulse Ox O2 Delivery O2 Flow Rate FiO2 09/14/16 08:24 98 Nasal Cannula 4.00 09/14/16 06:00 116 09/14/16 04:00 117 09/14/16 04:00 99.1 117 19 139/96 96 09/14/16 04:00 96 Nasal Cannula 4.00 09/14/16 02:00 113 09/14/16 00:00 97 Nasal Cannula 4.00 09/14/16 00:00 98.4 112 30 160/74 95 09/14/16 00:00 109 09/13/16 22:00 116 09/13/16 21:15 97 Nasal Cannula 3.00 09/13/16 20:00 98 Nasal Cannula 4.00 09/13/16 20:00 109 09/13/16 20:00 97.7 109 25 163/76 98 09/13/16 18:00 112 09/13/16 18:00 95 Nasal Cannula 3.00 09/13/16 18:00 98.3 113 24 159/88 95 09/13/16 15:00 95 Nasal Cannula 3.00 09/13/16 15:00 99.0 115 20 162/99 96 09/13/16 15:00 118 09/13/16 11:00 118 09/13/16 11:00 98.5 118 20 162/101 98 09/13/16 11:00 98 Nasal Cannula 4.00 -: 09/14/16 0557 09/14/16 0551 Physical Exam Pulmonary Resp Exam: Crackles, Rhonchi, Decreased Bases, Diminished Breath Sounds Cardiology CV Exam: Regular, Normal Sinus Rhythm Gastrointestinal/Abdomen GI Exam: Soft, Non-Tender, Bowel Sounds Present, Distended Extremeties Extremities Exam: Moderate Edema, Pitting Edema, Dependent Edema Neurologic Neuro Exam: Sedated Assessment/Plan Problem List: (1) Acute renal failure Plan: Patient has received heart catheterization He has elevation in the creatinine and he is nonoliguric. Urine out put decreased Creatinine increased to 7.31 doing poorly need hemodialysis today as no improvement (2) Hyperkalemia Plan: Resolved (3) Chronic kidney disease Plan: He has stage III chronic kidney disease due to diabetic (4) CHF (congestive heart failure), NYHA class III Plan: Continue to monitor for improvement (5) Coronary artery disease involving [place] heart Plan: Review his bypass and stents (6) Hypertension, essential, benign Plan: Monitor blood pressure (7) Diabetes mellitus, type II Plan: Monitor blood glucose (8) UTI (lower urinary tract infection) Plan: Group D enterococcus less than 10,000, on Zosyn (9) CVA (cerebral vascular accident) Plan: remain unresponsive moves left side more Problem Qualifiers (1) Acute renal failure: Qualified Code: N17.0 - Acute renal failure with tubular necrosis (2) Chronic kidney disease: Qualified Code: N18.4 - Chronic kidney disease, stage 4 (severe) Marisol Naidu MD Sep 14, 2016 10:55
[2016-09-14] MEDS ORDERED: cloNIDine HCL 0.1 MG TAB PO PRN (11:00)
[2016-09-14] MEDS ORDERED: GELATIN 12 MM/7 MM FOAM TOP PRN (11:00)
[2016-09-14] MEDS ORDERED: ONDANSETRON HCL 4 MG/2 ML VIAL IV PRN (11:00)
[2016-09-14] MEDS ORDERED: HEPARIN SODIUM - IV 10,000 UNITS/10 ML VIAL IVF PRN ×2 (11:00→16:00)
[2016-09-14] MEDS ORDERED: ACETAMINOPHEN 325 MG TAB PO PRN (11:00)
[2016-09-14] MEDS ORDERED: diphenhydrAMINE HCL 25 MG CAP PO PRN (11:00)
[2016-09-14] MEDS ORDERED: NITROGLYCERIN 0.4 MG SL 25 TABS/BTL SL PRN (11:00)
[2016-09-14 11:04] LABS: BLOOD, URINE MOD (NEG); GLUCOSE,URINE TRACE mg/dL (NEG); KETONE, URINE NEG (NEG); MUCUS URINE FEW /lpf (OCC); NITRITE,URINE NEG (NEG); SQUAMOUS EPITHELIAL CELL URINE 1 /hpf (0-5); URINE COLOR YELLOW (YELLW/STRAW)
[2016-09-14 11:11] LABS: COMMENT (UR) CATH-CULTURE IND; CULTURE IF INDICATED CATH CULTURE IND
[2016-09-14 11:12] LABS: BACTERIA, URINE MANY /hpf; HYALINE CAST, URINE 0-2 /lpf (RARE)
--- NOTE | 2016-09-14 11:40 | PD.CONS ---
Consult Service Palliative Care Consult Requested By Dr. Michael MD. Primary Care Physician Annette Salcedo MD Reason for Consultation a. To assist with evaluation and management of symptoms including: Debility. b. To assist medical decision maker(s) with: better understanding of current medical conditions; weighing benefits/burdens of medical treatment options; making medical treatment decisions. . HPI History of Present Illness Mr. Ferguson is a 66 y/o male with a medical history of CAD status post 6 vessel CABG in 2011, CHF, CAD, hypertension, diabetes mellitus type 2, obesity, and sleep apnea. On 09/07/16, patient underwent cardiac catheterization , he was found to have significant blockage requiring angioplasty and stenting. 2 of 6 grafts are currently patent. Post cardiac catheter, patient developed aphasia and right sided hemiparesis. CT of the brain show no acute process. Neurology -Dr. Nguyen consulted. Brain MRI obtained on 09/09/16 showing acute nonhemorrhagic infarction in the left sylvian region. Patient developed respiratory distress and was placed on BiPAP, subsequently intubated and placed on mechanical ventilation. Patient with history of stage III CKD, his potassium increased up to 6.1 and was treated medically. Nephrology -Dr. Naidu consulted for further management. Additional studies include: * 09/07/16 -EKG showing sinus tachycardia and nonspecific T-wave changes. * 09/08/16 -renal ultrasound showing large 6.3 cm cyst on left kidney. No evidence of hydronephrosis or obstructive uropathy. * 09/13/16 -carotid artery ultrasound showing significant plaque in the carotid bifurcations. Significant carotid stenosis cannot be excluded. * 09/13/16 -EEG. Normal. * Urine culture 09/08/16 showing Enterococcus faecalis. * Sputum and blood cultures negative thus far. * Laboratory today showing WBC trending up to 14.4. Hgb 12.8, platelets 269. * Sodium 146, potassium 3.4. * BUN/creatinine 85/7.31 from 70/5.40 the day before. Patient transferred to critical care. Remain on BiPAP support at home until secondary to worsening respiratory status. Patient was intubated on secondary to worsening respiratory failure, hypoxemia and altered mental status. He was subsequently extubated on 09/11/16, however, remained a phasic and not following any commands. Patient neurological status remains unchanged. He is not sedated. He is currently minimally responsive, briefly opening eyes to tactile stimuli. Not following any commands. Neurology following, GI - Dr. Barahona consulted for PEG placement. PEG placement on hold at this point as patient high risk secondary to anticoagulation and antiplatelets. Worsening renal function, nonoliguric. BUN/creatinine 85/7.31 from 70/5.40 the day before. Patient may require renal replacement therapy. Palliative care was consulted for further clarifications of goals of care given patient's clinical status and poor prognosis for an improved quality of life. Patient seen in ICU, resting in bed in no acute distress. Obtunded, briefly opening eyes to tactile stimuli. Not following any commands. Not attempting to communicate. No family at bedside. Patient remains tachycardic with heart rate in the 120s, BP in the 160s. Tachypneic with respiratory rate in the 30s. Coarse breath sounds noted. Patient failed swallow evaluation secondary to clinical condition, tube feedings via NG ongoing. Telephone call to patient's son Sedrick Birmingham. Medical update provided. Son lives in [place] but will be traveling to [place] tomorrow given patient's critical state. Son tells me that patient was living independently prior to this hospitalization, he was fully independent with ADLs. Patient is , has 3 children Sedrick who lives in [place], Vaibhav and Yani will leave locally. Shared concerns of patient's unchanged neurological status worsening renal and respiratory status. Reviewed guarded prognosis for a meaningful neurological recovery/return to independent living. Discussed CPR, intubation and mechanical ventilation given patient's worsening clinical condition. Reviewed that in the event patient survives an acute event, his condition will likely be worse than current state. Son reports that he had brief conversations with his father regarding life-prolonging measures but will like to discuss further with his siblings. Son made aware that patient's condition is critical with guarded prognosis. Son requested a letter from [facility] indicating that patient is currently admitted at this facility in order to presented to his employer, palliative care to facilitate this letter. Palliative care contact information has been provided. Son appreciative of this medical update and discussion. Case discussed with Dr. Urena. . Function/Cognitive Trajectory Patient living independently prior to this hospitalization. Independent with ADLs. No functional or cognitive decline reported. . Review of Systems ROS Limitations: Clinical Condition, Altered Mental Status Constitutional: DENIES: Weight loss Eyes: DENIES: Blurred vision Ears, nose, mouth, throat: DENIES: Hearing loss Cardiovascular: COMPLAINS OF: Chest pain Hematologic/Lymphatics: DENIES: Bruising Immunologic/Allergic: DENIES: Eczema Neurologic: DENIES: Abnormal gait Psychiatric: DENIES: Anxiety Other ROS: ROS limited secondary to patient's clinical condition, obtunded. ROS obtained from medical records, patient's family and clinical observation. Past Family Social History Coded Allergies: No Known Allergies (Verified , 09/07/16) Past Medical History CAD status post 6 vessel CABG in December 2011 CHF Hypertension CKD Gout Diabetes mellitus 2 Dyslipidemia Neuropathic diabetes Morbid obesity Sleep apnea Depression Hyperlipidemia Osteoarthritis . Past Surgical History Cardiac cath with angioplasty and stent placement in August 2016 6 vessel CABG in December 2011 Cardiac catheter in 2000 with stent placement x10 Bilateral knee replacement, right 1996 and left in 1999 Colonoscopy in 2015 Endoscopy in 2015 Right fifth toe amputation in 2012 . Reported Medications Clopidogrel (Clopidogrel Bisulfate) 75 Mg Tab 75 Mg PO DAILY Tamsulosin (Tamsulosin HCl) 0.4 Mg Cap 0.4 Mg PO HS Isosorbide Mononitrate ER (Isosorbide Mononitrate) 60 Mg Tab 60 Mg PO DAILY Aspirin 81 Mg Tabdr 81 Mg PO DAILY Nortriptyline (Nortriptyline HCl) 25 Mg Cap 25 Mg PO HS Gabapentin 800 Mg Tab 800 Mg PO TID Lipitor (Atorvastatin Calcium) 40 Mg Tab 40 Mg PO HS . Current Medications Medications (Trade) Dose Ordered Sig/Eric Route Start Time Stop Time Status Last Admin (Ecotrin Ec) 81 mg DAILY PO 09/08/16 09:00 09/14/16 08:34 (Lipitor) 40 mg HS PO 09/07/16 21:30 09/13/16 20:51 (Plavix) 75 mg DAILY PO 09/08/16 09:00 09/14/16 08:34 (Imdur) 60 mg DAILY@07 PO 09/08/16 07:00 09/14/16 04:48 (NS Flush) 2 ml UNSCH PRN IV FLUSH 09/07/16 21:30 (NS Flush) 2 ml BID IV FLUSH 09/08/16 09:00 09/14/16 08:35 (Tylenol) 650 mg Q6H PRN PO 09/07/16 21:30 09/10/16 20:29 (Morphine Inj) 2 mg Q2H PRN IV 09/07/16 21:30 09/09/16 01:00 (Ativan Inj) 0.5 mg Q2HR PRN IV 09/07/16 21:30 09/13/16 21:32 (Zofran Inj) 4 mg Q6H PRN IV 09/07/16 21:30 09/08/16 22:00 (Reglan Inj) 5 mg Q6H PRN IV 09/07/16 21:30 Miscellaneous Information 1 Q361D XX 09/07/16 21:30 (Chlorhexidine 2% Cloth) Taper DAILY@04 TOP 09/08/16 04:00 09/04/17 03:59 09/13/16 04:00 (Chlorhexidine 2% Cloth) 3 pack UNSCH PRN TOP 09/07/16 21:30 (Apresoline Inj) 20 mg Q4H PRN IV PUSH 09/08/16 04:30 09/13/16 21:29 (D50w (Vial) Inj) 25 ml UNSCH PRN IV PUSH 09/08/16 12:45 (Glucagon Inj) 1 mg UNSCH PRN OTHER 09/08/16 12:45 (NovoLIN R SUPPLEMENTAL SCALE) 1 Q4H SQ 09/08/16 13:00 09/14/16 08:53 (Lopressor) 50 mg Q8H PO 09/09/16 14:00 09/14/16 04:48 (Heparin Inj) 5,000 units Q12HR SQ 09/09/16 09:00 09/14/16 08:34 (Lacrilube Opht Oint) 1 applic BID EACH EYE 09/09/16 21:00 09/14/16 04:50 (Peridex 0.12% Liq) 15 ml BID@08,20 MT 09/10/16 20:00 09/13/16 20:00 Docusate Sodium 100 mg 100 mg BID PO 09/11/16 10:00 09/14/16 08:34 Levofloxacin/ Dextrose 150 ml @ 100 mls/hr Q48H IV 09/12/16 09:00 09/14/16 08:34 Piperacillin Sod/ Tazobactam Sod 50 ml @ 100 mls/hr Q6H IV 09/12/16 14:00 09/14/16 08:34 (NS 1000 ml Inj) 1,000 ml @ 100 mls/hr Q10H IV 09/13/16 11:00 09/14/16 08:35 (Protonix Inj) 40 mg Q12H IV PUSH 09/13/16 20:00 09/14/16 08:33 Family History Unable to obtain secondary to patient's clinical condition, obtunded. Son Sedrick unable to provide. Patient has 3 children who are alive and well. . Substance Use Tobacco: Denies use. Alcohol: Denies use. Prescription med abuse: Denies use. Illicits: Denies use. . Psychosocial History Patient is originally from [place]. He is and was living independently prior to this hospitalization. Has 3 children, Sedrick who lives in [place] and Vaibhav Salgado and Yani reside locally. 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 . Spiritual/Cultural Factors Religion. . Health Care Surrogate(s): Max Dubose not sure if patient has completed advance directives. As per [place] statute, healthcare decision-making falls to patient's 3 children. . Documented care wishes: Unclear at this time if advance directives have been completed. . Family/friends goals: Full code. Continue current medical management. . Ethical and Legal Issues Unclear at this time if advance directives have been completed. . Physical Exam Vital Signs Date Time Temp Pulse Resp B/P Pulse Ox O2 Delivery O2 Flow Rate FiO2 09/14/16 08:24 98 Nasal Cannula 4.00 09/14/16 06:00 116 09/14/16 04:00 117 09/14/16 04:00 99.1 117 19 139/96 96 09/14/16 04:00 96 Nasal Cannula 4.00 09/14/16 02:00 113 09/14/16 00:00 97 Nasal Cannula 4.00 09/14/16 00:00 98.4 112 30 160/74 95 09/14/16 00:00 109 09/13/16 22:00 116 09/13/16 21:15 97 Nasal Cannula 3.00 09/13/16 20:00 98 Nasal Cannula 4.00 09/13/16 20:00 109 09/13/16 20:00 97.7 109 25 163/76 98 09/13/16 18:00 112 09/13/16 18:00 95 Nasal Cannula 3.00 09/13/16 18:00 98.3 113 24 159/88 95 09/13/16 15:00 95 Nasal Cannula 3.00 09/13/16 15:00 99.0 115 20 162/99 96 09/13/16 15:00 118 09/13/16 11:00 118 09/13/16 11:00 98.5 118 20 162/101 98 09/13/16 11:00 98 Nasal Cannula 4.00 09/13/16 09/14/16 19:00 07:00 Intake Total 695 ml 578 ml Output Total 315 ml 400 ml Balance 380 ml 178 ml Intake Oral 0 ml IV Total 221 ml 578 ml Tube Feeding 474 ml Output Urine Total 315 ml 400 ml # Bowel Movements 1 0 Exam CONSTITUTIONAL/GENERAL: This is an adequately nourished patient, in no apparent distress. Obtunded. Briefly opening eyes to tactile stimuli, not following any commands. TUBES/LINES/DRAINS: PIV's, SCDs, NG tube, Guillen catheter. SKIN: No jaundice, rashes, or lesions. No wounds seen anteriorly. Skin temperature appropriate. Not diaphoretic. Dry skin. HEAD: Atraumatic. Normocephalic. EYES: Pupils equal and round and reactive. No scleral icterus. No injection or drainage. Fundi not examined. ENT: Unable to evaluate hearing secondary to clinical condition.. Nose without bleeding or purulent drainage. Mouth close. NG tube to left nare. NECK: Trachea midline. Supple. CARDIOVASCULAR: Tachycardic with heart rate in the 120s. Regular rate and rhythm. Peripheral pulses symmetric. RESPIRATORY/CHEST: Symmetric, tachypneic with respiratory rate in the 30s. Coarse breath sounds anteriorly. O2 via NC. GASTROINTESTINAL: Abdomen soft, large, round. Unable to appreciate hepato- splenomegaly secondary to body habitus. Bowel sounds present. GENITOURINARY: Without palpable bladder distension. Guillen catheter in place. MUSCULOSKELETAL: Extremities without clubbing, cyanosis. NEUROLOGICAL: Sedation. Obtunded, briefly opening eyes to tactile stimuli. Not tracking. Not following any commands. Not attempting to communicate. PSYCHIATRIC: Unable to assess secondary to clinical condition. Appears calm. . Diagnostic Tests Laboratory Laboratory Tests Test 09/11/16 09/12/16 09/13/1627/17 14:00 03:42 08:03 18:25 Blood Gas Puncture Site RT RADIAL RT RADIAL Blood Gas Patient Temperature 98.6 98.6 Blood Gas HCO3 21 mmol/L 27 mmol/L (22-26) (22-26) Blood Gas Base Excess -3.6 mmol/L 2.8 mmol/L (-2-2) (-2-2) Blood Gas Oxygen Saturation 97 % (90-100) 95 % (90-100) Arterial Blood pH 7.37 7.38 (7.380-7.420) (7.380-7.420) Arterial Blood Partial 37 mmHg (38-42) 47 mmHg (38-42) Pressure CO2 Arterial Blood Partial 161 mmHg 105 mmHg Pressure O2 (61-120) (61-120) Arterial Blood Oxygen Content 16.0 Vol % 16.6 Vol % (12.0-20.0) (12.0-20.0) Arterial Blood 1.3 % (0-4) 1.4 % (0-4) Carboxyhemoglobin Arterial Blood Methemoglobin 1.0 % (0-2) 1.2 % (0-2) Blood Gas Hemoglobin 11.5 G/DL 12.3 G/DL (12.0-16.0) (12.0-16.0) Oxygen Delivery Device VENTILATOR NASAL CANNULA Blood Gas Ventilator Setting CPAP,PEEP7,PS5 Blood Gas Inspired Oxygen 40 % White Blood Count 11.1 TH/MM3 12.4 TH/MM3 (4.0-11.0) (4.0-11.0) Red Blood Count 3.86 MIL/MM3 4.22 MIL/MM3 (4.50-5.90) (4.50-5.90) Hemoglobin 11.5 GM/DL 12.6 GM/DL (13.0-17.0) (13.0-17.0) Hematocrit 35.0 % 38.0 % (39.0-51.0) (39.0-51.0) Mean Corpuscular Volume 90.7 FL 89.9 FL (80.0-100.0) (80.0-100.0) Mean Corpuscular Hemoglobin 29.7 PG 29.8 PG (27.0-34.0) (27.0-34.0) Mean Corpuscular Hemoglobin 32.8 % 33.1 % Concent (32.0-36.0) (32.0-36.0) Red Cell Distribution Width 15.6 % 15.3 % (11.6-17.2) (11.6-17.2) Platelet Count 171 TH/MM3 257 TH/MM3 (150-450) (150-450) Mean Platelet Volume 8.7 FL 8.7 FL (7.0-11.0) (7.0-11.0) Neutrophils (%) (Auto) 80.4 % 86.5 % (16.0-70.0) (16.0-70.0) Lymphocytes (%) (Auto) 6.4 % 3.1 % (9.0-44.0) (9.0-44.0) Monocytes (%) (Auto) 11.9 % 9.8 % (0.0-8.0) (0.0-8.0) Eosinophils (%) (Auto) 1.0 % (0.0-4.0) 0.3 % (0.0-4.0) Basophils (%) (Auto) 0.3 % (0.0-2.0) 0.3 % (0.0-2.0) Neutrophils # (Auto) 8.9 TH/MM3 10.7 TH/MM3 (1.8-7.7) (1.8-7.7) Lymphocytes # (Auto) 0.7 TH/MM3 0.4 TH/MM3 (1.0-4.8) (1.0-4.8) Monocytes # (Auto) 1.3 TH/MM3 1.2 TH/MM3 (0-0.9) (0-0.9) Eosinophils # (Auto) 0.1 TH/MM3 0.0 TH/MM3 (0-0.4) (0-0.4) Basophils # (Auto) 0.0 TH/MM3 0.0 TH/MM3 (0-0.2) (0-0.2) CBC Comment DIFF FINAL DIFF FINAL Differential Comment Sodium Level 146 MEQ/L 143 MEQ/L (136-145) (136-145) Potassium Level 3.6 MEQ/L 3.3 MEQ/L (3.5-5.1) (3.5-5.1) Chloride Level 108 MEQ/L 102 MEQ/L (98-107) (98-107) Carbon Dioxide Level 25.1 MEQ/L 28.5 MEQ/L (21.0-32.0) (21.0-32.0) Anion Gap 13 MEQ/L (5-15) 13 MEQ/L (5-15) Blood Urea Nitrogen 57 MG/DL (7-18) 70 MG/DL (7-18) Creatinine 4.48 MG/DL 5.40 MG/DL (0.60-1.30) (0.60-1.30) Estimat Glomerular Filtration 13 ML/MIN (>89) 11 ML/MIN (>89) Rate Random Glucose 137 MG/DL 268 MG/DL (74-106) (74-106) Calcium Level 9.3 MG/DL 9.1 MG/DL (8.5-10.1) (8.5-10.1) Magnesium Level 2.0 MG/DL (1.5-2.5) Total Bilirubin 1.0 MG/DL 0.8 MG/DL (0.2-1.0) (0.2-1.0) Aspartate Amino Transf 101 U/L (15-37) 56 U/L (15-37) (AST/SGOT) Alanine Aminotransferase 44 U/L (12-78) 48 U/L (12-78) (ALT/SGPT) Alkaline Phosphatase 63 U/L (45-117) 72 U/L (45-117) Total Protein 8.2 GM/DL 8.5 GM/DL (6.4-8.2) (6.4-8.2) Albumin 3.4 GM/DL 3.6 GM/DL (3.4-5.0) (3.4-5.0) Vancomycin Level Trough 12.4 MCG/ML (5.0-10.0) Blood Gas Liter Flow 3 L/M Test 09/13/16 09/14/16 09/14/16 18:43 05:51 05:57 White Blood Count 12.3 TH/MM3 14.4 TH/MM3 (4.0-11.0) (4.0-11.0) Red Blood Count 4.06 MIL/MM3 4.27 MIL/MM3 (4.50-5.90) (4.50-5.90) Hemoglobin 12.1 GM/DL 12.8 GM/DL (13.0-17.0) (13.0-17.0) Hematocrit 36.4 % 38.4 % (39.0-51.0) (39.0-51.0) Mean Corpuscular Volume 89.7 FL 90.0 FL (80.0-100.0) (80.0-100.0) Mean Corpuscular Hemoglobin 29.8 PG 29.9 PG (27.0-34.0) (27.0-34.0) Mean Corpuscular Hemoglobin 33.2 % 33.2 % Concent (32.0-36.0) (32.0-36.0) Red Cell Distribution Width 15.5 % 15.2 % (11.6-17.2) (11.6-17.2) Platelet Count 241 TH/MM3 269 TH/MM3 (150-450) (150-450) Mean Platelet Volume 8.6 FL 8.6 FL (7.0-11.0) (7.0-11.0) Sodium Level 146 MEQ/L (136-145) Potassium Level 3.4 MEQ/L (3.5-5.1) Chloride Level 106 MEQ/L (98-107) Carbon Dioxide Level 25.9 MEQ/L (21.0-32.0) Anion Gap 14 MEQ/L (5-15) Blood Urea Nitrogen 85 MG/DL (7-18) Creatinine 7.31 MG/DL (0.60-1.30) Estimat Glomerular Filtration 7 ML/MIN (>89) Rate Random Glucose 225 MG/DL (74-106) Calcium Level 9.2 MG/DL (8.5-10.1) Total Bilirubin 0.7 MG/DL (0.2-1.0) Aspartate Amino Transf 27 U/L (15-37) (AST/SGOT) Alanine Aminotransferase 37 U/L (12-78) (ALT/SGPT) Alkaline Phosphatase 63 U/L (45-117) Total Protein 8.5 GM/DL (6.4-8.2) Albumin 3.5 GM/DL (3.4-5.0) Neutrophils (%) (Auto) 80.8 % (16.0-70.0) Lymphocytes (%) (Auto) 5.0 % (9.0-44.0) Monocytes (%) (Auto) 12.2 % (0.0-8.0) Eosinophils (%) (Auto) 1.5 % (0.0-4.0) Basophils (%) (Auto) 0.5 % (0.0-2.0) Neutrophils # (Auto) 11.6 TH/MM3 (1.8-7.7) Lymphocytes # (Auto) 0.7 TH/MM3 (1.0-4.8) Monocytes # (Auto) 1.8 TH/MM3 (0-0.9) Eosinophils # (Auto) 0.2 TH/MM3 (0-0.4) Basophils # (Auto) 0.1 TH/MM3 (0-0.2) CBC Comment DIFF FINAL Differential Comment Result Diagram: 09/14/16 0557 09/14/16 0551 Microbiology Microbiology Date/Time Procedure Status Source Growth 09/10/16 11:05 Aerobic Blood Culture - Preliminary Resulted Blood Peripheral NO GROWTH IN 3 DAYS 09/10/16 11:05 Anaerobic Blood Culture - Preliminary Resulted Blood Peripheral NO GROWTH IN 3 DAYS 09/10/16 08:00 Gram Stain - Final Complete Sputum Endotracheal 09/10/16 08:00 Sputum Culture - Final Complete Sputum Endotracheal HEAVY GROWTH NORMAL RESPIRATORY ADAL Imaging Last Impressions Chest X-Ray 09/14/16 0600 Signed Impressions: Service Date/Time: Wednesday, September 14, 2016 04:58 - CONCLUSION: 1. Cardiomegaly. Minimal basilar airspace disease probably atelectasis. Javi Dunn MD Carotid Artery Ultrasound 09/13/16 0000 Signed Impressions: Service Date/Time: Tuesday, September 13, 2016 16:46 - CONCLUSION: Significant plaque remains evident in the carotid bifurcations. Poor visualization and difficulty velocity sampling of the proximal internal carotid arteries was again encountered. Significant carotid stenosis cannot be excluded. Nonvisualization of the vertebral arteries. Mack Brizuela MD Brain MRI 09/09/16 0000 Signed Impressions: Service Date/Time: August 16:36 - CONCLUSION: 1. Findings demonstrate an acute infarction in the left sylvian region, nonhemorrhagic. 2. Small air-fluid level right maxillary sinus and mild bilateral ethmoid sinus disease. Suresh Diaz MD Renal Ultrasound 09/08/16 0000 Signed Impressions: Service Date/Time: Thursday, September 08, 2016 16:04 - CONCLUSION: Large 6.3 cm cyst lower pole laterally left kidney. No evidence of hydronephrosis or obstructive uropathy.. Christian Cooper MD Head CT 09/07/16 0000 Signed Impressions: Service Date/Time: Wednesday, September 07, 2016 22:08 - CONCLUSION: No acute intracranial abnormality. Sinus disease and supraorbital soft tissue swelling. Michael Vasquez MD Procedures * 09/11/16 -extubation. * 09/10/16 -intubation. * 09/07/16 -cardiac catheter with angioplasty and stent placement. . Patient/Family Conference Present at Family Conference: Max Dubose. Family Conference Time (mins): 28 Family Conference Location: Telephone Issues Discussed: * Palliative care role, purpose, approach * Additional medical, psychosocial, and spiritual history * Patients general health, functional status, and cognitive changes in the months leading up to the current hospitalization * Family's understanding of the current medical problems * Family understanding of prognosis -guarded for a meaningful neurological recovery even if he is to survive this hospitalization. * Current medical treatment options and benefits/burdens of those options * Questions answered to the best of my ability * Palliative care contact information provided . Assessment and Plan Disease Oriented Problem List: (1) Acute tubular necrosis (2) Acute ischemic left MCA stroke (3) CAD (coronary artery disease) of bypass graft (4) CHF (congestive heart failure), NYHA class II Symptom Scale: (1) Debility 0-10 Scale: Unable to quantify Comment: Secondary to CVA, acute complications, hospitalization. (2) Shortness of breath 0-10 Scale: Unable to quantify Comment: Intubated on 09/10/16 and extubated on 09/11/16. High risk for acute respiratory failure. Pertinent Non-Medical Issues Psychosocial: . Has 2 children. Living independently prior to this hospitalization. Spiritual: Religion. Legal: Unknown if advance directives have been completed. Ethical issues impacting care: Unknown if advance directives have been completed. . Important Contacts Max Birmingham [phone]. Max Esposito Jr. Daughter Yani. . Prognosis Mr. Ferguson is a 66 y/o male with an adhesive significant cardiac history to include stenting in 2010, CAD status post 6 vessel CABG in 2011, and angioplasty and stenting in September 06. He was found to have significant blockage requiring angioplasty and stenting. 2 of 6 grafts are currently patent. Post cardiac catheter, patient developed aphasia and right sided hemiparesis. MRI of the brain showing acute nonhemorrhagic infarct. Patient was intubated and subsequently extubated secondary to respiratory failure and altered mental status. Vertical condition remains the same, he is obtunded and not following any commands. Patient with history of CKD now with acute tubular necrosis requiring renal replacement therapy. His prognosis is poor for a meaningful neurological recovery even if he is to survive this hospitalization given his age, severity of cardiac disease, complications to include stroke, and multiple comorbidities. He is at a very high risk for further decline, complications and . . Code Status: Full Code Plan * CODE STATUS: Full code. Risks, benefits and limitations of CPR, intubation and mechanical ventilation discuss with patient's son. Encouraged to discuss further with family. * MEDICAL DECISION-MAKING: Patient incapacitated to make healthcare decisions secondary to clinical condition, unclear if he will regain. Son Sedrick not sure if patient has completed advance directives. As per [place] statute, healthcare decision-making falls to patient's 3 children. * GOALS OF CARE: Full code. Continue with current medical management until patient's son Sedrick arrives from [place] tomorrow 09/15/16. Palliative care to follow-up with family meeting to discuss prognosis and goals of care. Son made aware that patient's condition is critical with guarded prognosis for a meaningful neurological recovery/return to independent living even if he is to survive this hospitalization. * SYMPTOMS: == Shortness of breath, patient recently intubated and extubated. Very high risk for acute respiratory failure, inability to maintain airway. Patient full code at this time. == Debility, secondary to CVA, acute events and hospitalization. == Anxiety, patient appears calm. Sedation off for the past 76 hours. * Case discussed with Dr. Urena and bedside RN. * Palliative care contact information has been provided to patient's son Sedrick. * Palliative care will continue to follow-up to assist with symptom management and to further evaluate goals of care as the clinical course of goals. Pending arrival of max Dubose from [place] tomorrow 09/15/16. . Time Spent Total Floor Time (mins): 82 (Total time to include review and summarization of available medical records to include prior hospitalization, physical exam, telephone conversation with patient's son, case discussion with Dr. Urena and bedside RN.) >50% Counseling/Coord of Care: Yes Thank you for the opportunity to participate in the care of Mr. Arvizu. Attestation To help prompt me to consider important information that might be impacting today's encounter and assessment, information from prior notes written by myself or my colleagues may have been "brought forward" into today's note. My signature on this note, however, is an attestation that I personally performed the exam, history, and/or decision-making noted today, and, unless otherwise indicated, the interactions with patient, family, and staff as well as the review of records all occurred today. I also attest that the listed assessment and stated plan reflect my best clinical judgment today based on the combination of historical information, prior notes, and today's exam/ interactions. When time spent is documented, it refers only to time spent today by the signer, or if indicated, combined time spent today by collaborating physician/nurse practitioner. Simran Sorto Sep 14, 2016 11:37
--- NOTE | 2016-09-14 15:58 | PD.RAD ---
Post Procedure Progress Note Pre Procedure Diagnosis: (1) Acute kidney injury Post Procedure Diagnosis: (1) Acute kidney injury Procedure Date: Sep 14, 2016 Supervising Radiologist: Wesley Chaudhari Proceduralist/Assist: Crista Rondon RT(R)(), Chivo Sparks RT(R) Anesthesia: Local Plan of Activity Patient to Unit: Critical Care Patient Condition: Poor See PACS Report for procedural detail/treatment Central Venous Access Device Procedure 1 Internal Jugular Hemodialysis Catheter Non-Tunneled Placement dual lumen Wesley Chaudhari MD Sep 14, 2016 15:58
[2016-09-14] MEDS ORDERED: SODIUM CHLORIDE 0.9% FLUSH 5 ML FLUSH IVF PRN (16:00)
[2016-09-14] MEDS: SODIUM CHLORIDE 0.9% FLUSH 5 ML FLUSH IVF PRN (16:35)
[2016-09-14] MEDS: GENTAMICIN SULFATE (DIALYSIS USE ONLY) 20 MG/2 ML VIAL IV PRN (16:36)
[2016-09-14] MEDS: SODIUM CHLOR 0.9% 1000 ML INJ 1,000 ML IV PRN ×2 (16:36)
[2016-09-14] MEDS: HEPARIN SODIUM - IV 10,000 UNITS/10 ML VIAL PRN (16:37)
--- NOTE | 2016-09-14 16:56 | RADRPT ---
EXAM DATE/TIME: 09/14/2016 15:59 [facility] COMPARISON: No previous studies available for comparison. INDICATIONS : Vas Cath Placement MEDICAL HISTORY : Hypertension. SURGICAL HISTORY : CABG. Coronary artery stent ENCOUNTER: Subsequent ACUITY: 1 day PAIN SCORE: Non-responsive. LOCATION: Bilateral chest FINDINGS: A single view of the chest demonstrates the lungs to be symmetrically aerated without evidence of mas s, infiltrate or effusion. The cardiac silhouette is enlarged . Small lung volumes Osseous structure s are intact. Right internal jugular vein catheter CONCLUSION: Vas catheter placed without complication. Small lung volumes without pneumothorax. Abdi Kent MD on September 14, 2016 at 16:49 Board Certified Radiologist. This report was verified electronically.
--- NOTE | 2016-09-14 17:40 | RADRPT ---
EXAM DATE/TIME: 09/14/2016 00:00 [facility] COMPARISON: No previous studies available for comparison. INDICATIONS : Patient with a history of renal disease, needs dialysis. MEDICAL HISTORY : CAD Diabetes type II Chronic kidney disease Gout HTN Hyperlipidemia Chronic scrotal swelling Sleep apnea Depression SURGICAL HISTORY : Cardiac cath CABG Bilateral knee prosthesis Right fifth toe amputation Colonoscopy EGD ENCOUNTER: Initial ACUITY: 1 day PAIN SCORE: Nonresponsive. ACCESS: Right internal jugular vein DEVICE(S): 1.) 14 [place] dual lumen 20 cm [employer] catheter TECH NOTE: Placement done at bedside, confirmed with CXABELARDO JULIETA MR#:[id number] DOB1 Exam D t/Desc: September 14, 2016TEMP DIALYSIS CATHETER PLCMT W/US, RIGHT PROCEDURE : 1. Ultrasound guided venipuncture. 2. Fluoroscopic guidance. 3. Central line placement. The risks, benefits and alternatives to the procedure were explained and verbal and written consent w as obtained. The site was prepped in sterile fashion. Full sterile technique was used, including ca p, mask, sterile gloves and gown and a large sterile sheet. Hand hygiene and 2% chlorhexidine prep w as utilized per protocol for cutaneous antisepsis with appropriate dry time for site. The skin and subcutaneous tissues were infiltrated with local anesthetic solution. A suitable site a jeff the vein was selected with ultrasound and fluoroscopic guidance. A small incision was made. Th e vein was accessed under direct ultrasound visualization using the micropuncture technique. The [place] ropuncture set was exchanged for a 0.035 wire. The tract was dilated. The catheter was advanced int o position under direct fluoroscopic visualization. The catheter was fixed in place with suture and a sterile dressing was applied. The patient tolerated the procedure well and there were no complications. CONCLUSION: Uncomplicated line placement as above. Wesley Chaudhari MD on September 14, 2016 at 17:39 Board Certified Radiologist. This report was verified electronically.
--- NOTE | 2016-09-14 18:35 | PD.CARD.PN ---
Subjective Subjective Remarks Aphasic, undergoing dialysis Objective Medications Current Medications Medications (Trade) Dose Ordered Sig/Eric Route Start Time Stop Time Status Last Admin (Ecotrin Ec) 81 mg DAILY PO 09/08/16 09:00 09/14/16 08:34 (Lipitor) 40 mg HS PO 09/07/16 21:30 09/13/16 20:51 (Plavix) 75 mg DAILY PO 09/08/16 09:00 09/14/16 08:34 (Imdur) 60 mg DAILY@07 PO 09/08/16 07:00 09/14/16 04:48 (NS Flush) 2 ml UNSCH PRN IV FLUSH 09/07/16 21:30 (NS Flush) 2 ml BID IV FLUSH 09/08/16 09:00 09/14/16 08:35 (Tylenol) 650 mg Q6H PRN PO 09/07/16 21:30 09/10/16 20:29 (Morphine Inj) 2 mg Q2H PRN IV 09/07/16 21:30 09/09/16 01:00 (Ativan Inj) 0.5 mg Q2HR PRN IV 09/07/16 21:30 09/13/16 21:32 (Zofran Inj) 4 mg Q6H PRN IV 09/07/16 21:30 09/08/16 22:00 (Reglan Inj) 5 mg Q6H PRN IV 09/07/16 21:30 Miscellaneous Information 1 Q361D XX 09/07/16 21:30 (Chlorhexidine 2% Cloth) Taper DAILY@04 TOP 09/08/16 04:00 09/04/17 03:59 09/13/16 04:00 (Chlorhexidine 2% Cloth) 3 pack UNSCH PRN TOP 09/07/16 21:30 (Apresoline Inj) 20 mg Q4H PRN IV PUSH 09/08/16 04:30 09/13/16 21:29 (D50w (Vial) Inj) 25 ml UNSCH PRN IV PUSH 09/08/16 12:45 (Glucagon Inj) 1 mg UNSCH PRN OTHER 09/08/16 12:45 (NovoLIN R SUPPLEMENTAL SCALE) 1 Q4H SQ 09/08/16 13:00 09/14/16 17:24 (Lopressor) 50 mg Q8H PO 09/09/16 14:00 09/14/16 13:38 (Heparin Inj) 5,000 units Q12HR SQ 09/09/16 09:00 09/14/16 08:34 (Lacrilube Opht Oint) 1 applic BID EACH EYE 09/09/16 21:00 09/14/16 04:50 (Peridex 0.12% Liq) 15 ml BID@08,20 MT 09/10/16 20:00 09/13/16 20:00 Docusate Sodium 100 mg 100 mg BID PO 09/11/16 10:00 09/14/16 08:34 Levofloxacin/ Dextrose 150 ml @ 100 mls/hr Q48H IV 09/12/16 09:00 09/14/16 08:34 Piperacillin Sod/ Tazobactam Sod 50 ml @ 100 mls/hr Q6H IV 09/12/16 14:00 09/14/16 13:38 (NS 1000 ml Inj) 1,000 ml @ 5 mls/hr Q24H IV 09/13/16 11:00 09/14/16 08:35 Pantoprazole Sodium 40 mg 40 mg Q12H IV PUSH 09/13/16 20:00 09/14/16 08:33 (NS 1000 ml Inj) 1,000 ml @ 0 mls/hr Q0M PRN IV 09/14/16 10:48 09/14/16 16:36 Heparin Sodium (Porcine) 8000 units 8,000 units UNSCH PRN IVF 09/14/16 11:00 Sodium Chloride 1,000 ml @ 200 mls/hr Q5H PRN IV 09/14/16 10:48 09/14/16 16:36 (NS 1000 ml Inj) 1,000 ml @ 0 mls/hr Q0M PRN IV 09/14/16 10:48 (Mannitol Inj) 12.5 gm UNSCH PRN IV 09/14/16 11:00 (Albumin 25% Inj) 25 gm UNSCH PRN IV 09/14/16 11:00 (NS Flush) 5 ml UNSCH PRN IVF 09/14/16 11:00 09/14/16 16:35 (Heparin Inj) UNSCH PRN .XX 09/14/16 11:00 09/14/16 16:37 (Gentamicin (Dialysis) Inj) 20 mg UNSCH PRN IV 09/14/16 11:00 09/14/16 16:36 (Zofran Inj) 4 mg UNSCH PRN IV 09/14/16 11:00 (Tylenol) 650 mg UNSCH PRN PO 09/14/16 11:00 (Benadryl) 25 mg UNSCH PRN PO 09/14/16 11:00 (Nitrostat Sl) 0.4 mg UNSCH PRN SL 09/14/16 11:00 (Catapres) 0.1 mg UNSCH PRN PO 09/14/16 11:00 (Gelfoam 12 Mm/7 Mm Top) 1 foam UNSCH PRN TOP 09/14/16 11:00 (NS Flush) UNSCH PRN IVF 09/14/16 16:00 (Heparin Inj) UNSCH PRN IVF 09/14/16 16:00 Vital Signs / I&O Vital Signs Date Time Temp Pulse Resp B/P Pulse Ox O2 Delivery O2 Flow Rate FiO2 09/14/16 16:30 126 09/14/16 16:30 96 Nasal Cannula 4.00 09/14/16 16:30 100.8 126 32 141/96 97 09/14/16 14:00 122 09/14/16 12:00 125 09/14/16 12:00 96 Nasal Cannula 4.00 09/14/16 12:00 100.2 125 26 169/90 98 09/14/16 10:00 122 09/14/16 08:24 98 Nasal Cannula 4.00 09/14/16 08:00 100.9 122 18 177/86 95 09/14/16 08:00 96 Nasal Cannula 4.00 09/14/16 08:00 120 09/14/16 06:00 116 09/14/16 04:00 117 09/14/16 04:00 99.1 117 19 139/96 96 09/14/16 04:00 96 Nasal Cannula 4.00 09/14/16 02:00 113 09/14/16 00:00 97 Nasal Cannula 4.00 09/14/16 00:00 98.4 112 30 160/74 95 09/14/16 00:00 109 09/13/16 22:00 116 09/13/16 21:15 97 Nasal Cannula 3.00 09/13/16 20:00 98 Nasal Cannula 4.00 09/13/16 20:00 109 09/13/16 20:00 97.7 109 25 163/76 98 I/O 09/13/16 09/13/16 09/13/16 09/14/16 09/14/16 09/14/16 07:00 15:00 23:00 07:00 15:00 23:00 Intake Total 660 ml 948 ml 325 ml 932 ml Output Total 1325 ml 565 ml 150 ml 500 ml 2000 ml Balance -665 ml 383 ml 175 ml 432 ml -2000 ml Intake Oral 0 ml IV Total 100 ml 474 ml 325 ml 766 ml Tube Feeding 370 ml 474 ml 166 ml Albumin 100 ml Tube Irrigant 90 ml Output Urine Total 1325 ml 565 ml 150 ml 500 ml Hemodialysis 2000 ml # Bowel Movements 4 1 0 0 Physical Exam GENERAL: In NAD, in dialysis SKIN: Warm and dry. HEAD: Normocephalic. Facial asymetry. EYES: No scleral icterus. No injection or drainage. NECK: Supple, trachea midline. No JVD or lymphadenopathy. CARDIOVASCULAR: Regular rate and rhythm without murmurs, gallops, or rubs. RESPIRATORY: Breath sounds equal bilaterally. No accessory muscle use. GASTROINTESTINAL: Abdomen soft, non-tender, nondistended, obese MUSCULOSKELETAL: No cyanosis, or edema. Groins stable. NEURO: aphasic Laboratory Laboratory Tests Test 09/13/16 09/14/16 09/14/16 09/14/16 18:43 05:51 05:57 08:45 White Blood Count 12.3 TH/MM3 14.4 TH/MM3 Red Blood Count 4.06 MIL/MM3 4.27 MIL/MM3 Hemoglobin 12.1 GM/DL 12.8 GM/DL Hematocrit 36.4 % 38.4 % Mean Corpuscular Volume 89.7 FL 90.0 FL Mean Corpuscular Hemoglobin 29.8 PG 29.9 PG Mean Corpuscular Hemoglobin 33.2 % 33.2 % Concent Red Cell Distribution Width 15.5 % 15.2 % Platelet Count 241 TH/MM3 269 TH/MM3 Mean Platelet Volume 8.6 FL 8.6 FL Sodium Level 146 MEQ/L Potassium Level 3.4 MEQ/L Chloride Level 106 MEQ/L Carbon Dioxide Level 25.9 MEQ/L Anion Gap 14 MEQ/L Blood Urea Nitrogen 85 MG/DL Creatinine 7.31 MG/DL Estimat Glomerular Filtration 7 ML/MIN Rate Random Glucose 225 MG/DL Calcium Level 9.2 MG/DL Total Bilirubin 0.7 MG/DL Aspartate Amino Transf 27 U/L (AST/SGOT) Alanine Aminotransferase 37 U/L (ALT/SGPT) Alkaline Phosphatase 63 U/L Total Protein 8.5 GM/DL Albumin 3.5 GM/DL Neutrophils (%) (Auto) 80.8 % Lymphocytes (%) (Auto) 5.0 % Monocytes (%) (Auto) 12.2 % Eosinophils (%) (Auto) 1.5 % Basophils (%) (Auto) 0.5 % Neutrophils # (Auto) 11.6 TH/MM3 Lymphocytes # (Auto) 0.7 TH/MM3 Monocytes # (Auto) 1.8 TH/MM3 Eosinophils # (Auto) 0.2 TH/MM3 Basophils # (Auto) 0.1 TH/MM3 CBC Comment DIFF FINAL Differential Comment Urine Color YELLOW Urine Turbidity CLOUDY Urine pH 6.0 Urine Specific [place] 1.018 Urine Protein 300 mg/dL Urine Glucose (UA) TRACE mg/dL Urine Ketones NEG mg/dL Urine Occult Blood MOD Urine Nitrite NEG Urine Bilirubin NEG Urine Urobilinogen LESS THAN 2.0 MG/DL Urine Leukocyte Esterase MOD Urine RBC 44 /hpf Urine WBC 51 /hpf Urine Squamous Epithelial 1 /hpf Cells Urine Amorphous Sediment MOD Urine Bacteria MANY /hpf Urine Hyaline Casts 0-2 /lpf Urine Mucus FEW /lpf Microscopic Urinalysis Comment CATH-CULTURE IND Imaging Last Impressions Chest X-Ray 09/14/16 0600 Signed Impressions: Service Date/Time: Wednesday, September 14, 2016 04:58 - CONCLUSION: 1. Cardiomegaly. Minimal basilar airspace disease probably atelectasis. Javi Dunn MD Catheter Placement X-Ray 09/14/16 0000 Signed Impressions: Service Date/Time: Wednesday, September 14, 2016 00:00 - CONCLUSION: Uncomplicated line placement as above. Wesley Chaudhari MD Carotid Artery Ultrasound 09/13/16 0000 Signed Impressions: Service Date/Time: Tuesday, September 13, 2016 16:46 - CONCLUSION: Significant plaque remains evident in the carotid bifurcations. Poor visualization and difficulty velocity sampling of the proximal internal carotid arteries was again encountered. Significant carotid stenosis cannot be excluded. Nonvisualization of the vertebral arteries. Mack Brizuela MD Brain MRI 09/09/16 0000 Signed Impressions: Service Date/Time: August 16:36 - CONCLUSION: 1. Findings demonstrate an acute infarction in the left sylvian region, nonhemorrhagic. 2. Small air-fluid level right maxillary sinus and mild bilateral ethmoid sinus disease. Suresh Diaz MD Renal Ultrasound 09/08/16 0000 Signed Impressions: Service Date/Time: Thursday, September 08, 2016 16:04 - CONCLUSION: Large 6.3 cm cyst lower pole laterally left kidney. No evidence of hydronephrosis or obstructive uropathy.. Christian Cooper MD Head CT 09/07/16 0000 Signed Impressions: Service Date/Time: Wednesday, September 07, 2016 22:08 - CONCLUSION: No acute intracranial abnormality. Sinus disease and supraorbital soft tissue swelling. Michael Vasquez MD Assessment and Plan Problem List: (1) Unstable angina (2) CAD (coronary artery disease) of bypass graft (3) CHF (congestive heart failure), NYHA class II (4) Cardiomyopathy, ischemic (5) Chronic kidney disease (6) Suspected cerebrovascular accident (7) Abnormal nuclear stress test Assessment and Plan Continue ICU monitoring. Continue Plavix and ASA per NG to prevent stent thrombosis. BP controlled. Neurology evaluation and management for CVA confirmed by MRI. No evidence of ICH. Groins remain stable. Renal fx worse, undergoing dialysis. Palliative care consulted. Problem Qualifiers (1) Chronic kidney disease: Qualified Code: N18.4 - Chronic kidney disease, stage 4 (severe) Martha Cummins MD Sep 14, 2016 18:35
[2016-09-14] MEDS: ATORVASTATIN 40 MG TAB PO SCH (20:27)
[2016-09-14] MEDS: LORazepam 2 MG/ML VIAL IV PRN ×2 (20:28→23:57)
[2016-09-14 21:34] LABS: BLOOD GAS BASE EXCESS -0.5 mmol/L (-2-2); BLOOD GAS CARBOXYHEMOGLOBIN 1.3 % (0-4); BLOOD GAS HCO3 24 mmol/L (22-26); BLOOD GAS METHEMOGLOBIN 1.2 % (0-2); BLOOD GAS O2 HGB SATURATION 95 % (90-100); BLOOD GAS OXYGEN CONTENT 19.4 Vol % (12.0-20.0); BLOOD GAS PCO2 40 mmHg (38-42); BLOOD GAS PO2 103 mmHg (61-120); BLOOD GAS TOTAL HGB 14.5 G/DL (12.0-16.0); CRITICAL VALUE NO; FIO2 40 %; TEMP CORR TO 98.6
[2016-09-14 21:35] LABS: DRAW SITE RT RADIAL; NUMBER OF ARTERIAL PUNCTURES 1; STAT YES; ULNAR PULSE PRESENT
[2016-09-14] MEDS: MORPHINE SULFATE 4 MG/ML INJ IV PRN (23:57)
[2016-09-14] MEDS: ACETAMINOPHEN 325 MG TAB PO PRN (23:57)
[2016-09-15] VITALS (21 sets, daily range): BP systolic 103–138; BP diastolic 59–88; PULSE 86–143; RESP 20–41; TEMP 98.3–102; O2SAT 96–100
[2016-09-15] MEDS ORDERED: AMIODARONE INJ 450 MG in DEXTROSE 5% IN WATE(EXCEL) INJ 241 ML IV SCH ×2 (01:15)
[2016-09-15] MEDS ORDERED: AMIODARONE INJ 150 MG in DEXTROSE 5% IN WATER 100ML INJ 97 ML IV ONE ×2 (01:15)
[2016-09-15] MEDS: PIPERACIL-TAZO 2.25 GM PREMIX 50 ML IV SCH ×2 (01:50→08:13)
[2016-09-15] MEDS: RESP: ALBUTEROL 2.5 MG/IPRATROPIUM 0.5 MG NEB (SCH) NEB ×4 (03:13→20:17)
[2016-09-15] MEDS: CHLORHEXIDINE GLUCONATE 2 % 1 PACK (2 CLOTHS) TOP SCH (04:00)
[2016-09-15 04:38] LABS: AUTOMATED NEUTROPHIL # 15.4 TH/MM3 (1.8-7.7); BASOPHIL % 0.1 % (0.0-2.0); EOSINOPHIL # 0.1 TH/MM3 (0-0.4); EOSINOPHIL % 0.6 % (0.0-4.0); HEMATOCRIT 41.6 % (39.0-51.0); LYMPH % 4.1 % (9.0-44.0); LYMPHOCYTE # 0.8 TH/MM3 (1.0-4.8); MEAN CELL VOLUME 92.1 FL (80.0-100.0); MEAN CORPUSCULAR HEMOGLOBIN 30.1 PG (27.0-34.0); MEAN CORPUSCULAR HGB CONC 32.7 % (32.0-36.0); MONO % 16.5 % (0.0-8.0); NEUT % 78.7 % (16.0-70.0); PLATELET COUNT 365 TH/MM3 (150-450); RED BLOOD COUNT 4.52 MIL/MM3 (4.50-5.90); RED CELL DISTRIBUTION WIDTH 15.5 % (11.6-17.2); WHITE BLOOD COUNT 19.6 TH/MM3 (4.0-11.0)
[2016-09-15 04:43] LABS: INTERNATIONAL NORMALIZED RATIO 1.3 RATIO; PROTHROMBIN TIME - PATIENT 14.2 SEC (9.8-11.6)
[2016-09-15 04:47] LABS: HEMO FLAGS AUTO DIFF
[2016-09-15] MEDS: INSULIN NovoLIN REGULAR SUPPLEMENTAL SCALE SQ SCH ×5 (05:00→23:07)
[2016-09-15 05:14] LABS: BICARBONATE 26.6 MEQ/L (21.0-32.0); POTASSIUM 4.6 MEQ/L (3.5-5.1)
[2016-09-15] MEDS: ALBUMIN HUMAN 25% 25 GM/100 ML BAGP IV PRN ×2 (05:33→05:34)
[2016-09-15] MEDS: SODIUM CHLOR 0.9% 1000 ML INJ 1,000 ML IV PRN ×2 (05:33)
[2016-09-15] MEDS: MANNITOL 12.5 GM/50 ML VIAL IV PRN (05:33)
[2016-09-15] MEDS: METOPROLOL TARTRATE 50 MG TAB PO SCH ×3 (06:00→22:00)
[2016-09-15] MEDS: ISOSORBIDE MONONITRATE 60 MG TAB PO SCH (07:00)
[2016-09-15 07:08] LABS: PLATELET ESTIMATE SMEAR NORMAL (NORMAL); PLATELET MORPHOLOGY NORMAL (NORMAL); SCAN/DIFF AUTO DIFF CONFIRMED
--- NOTE | 2016-09-15 07:46 | HHI.CCPN ---
Subjective Remarks/Hospital Course 66-year-old gentleman with a history of coronary artery disease status post CABG underwent emergent cardiac catheterization by Dr. Cummins. Postprocedure his course is complicated by aphasia and right-sided weakness. 09/08 Patient was on BIPAP 14/7 with FIO2 25%. On Precedex and heparin drips. CT brain showed last night showed no acute process. Impela was removed this morning by Dr. Cummins. T:99.9 Renal function improving with Cr:2.5 from 3.0 hyperkalemic with K 6.1 09/09: Overnight remained on BiPAP predominantly for sleep apnea. Intermittently follows commands. Will check MRI of the brain today. Creatinine slightly worsened to 2.8. Consulted nephrology, hyperkalemia resolved 09/10: Remains on BiPAP, some interval worsening of respiratory status. Patient is more tachypneic chest x-ray shows left lower lobe infiltrate .Currently sedated with 0.5 g per KG per hour of Precedex. I will discontinue Precedex. MRI brain shows acute infarct left sylvian region. Creatinine slightly worse at 3. Low-grade fever Tmax 100.2, send blood and sputum culture and start Zosyn 09/11: Patient was intubated yesterday for progressively worsening respiratory failure, hypoxemia and altered mentation. On ventilator support patient's oxygenation has improved. He moves all extremities do not following commands. Chest x-ray shows no definite infiltrates 09/12: Extubated yesterday tolerating well oxygenation varghese and protecting airway. No fevers. Urine output 3.8 L in 24 hours with creatinine worsening from 3.9 to 4.5 today. Remains aphasic not following commands 09/13: Somnolent, received Ativan for agitation overnight. Urine output 4 L in 24 hours. Labs are pending at this time. Opens eyes to verbal stimulation, remains aphasic and did not follow commands 09/14 Patient appears somnolent. On no sedation. Renal function worse today with Cr: 7.31 from 5.40 and UO: 715ml in 24hrs. T:100.9 this morning. Remains aphasic. 09/15 Patient was placed on Amio drip overnight for Afib with RVR. HD initiated yesterday with removal 2L. He is currently receiving another HD treatment. Tmax 100.9. Patient remains encephalopathic and does not follow commands. TF was held due to high residuals. Objective Vital Signs Date Time Temp Pulse Resp B/P Pulse Ox O2 Delivery O2 Flow Rate FiO2 09/15/16 07:22 100 25 09/15/16 06:00 109 09/15/16 04:00 Bi-Pap 09/15/16 04:00 98.3 41 138/88 09/15/16 00:00 4.00 Intake and Output 09/14/16 09/14/16 09/14/16 07:59 15:59 23:59 Intake Total 325 ml 932 ml 339 ml Output Total 150 ml 500 ml 2150 ml Balance 175 ml 432 ml -1811 ml Result Diagram: 09/15/16 0405 09/15/16 0405 Other Results Laboratory Tests Test 09/14/16 09/14/16 09/15/16 08:45 21:20 04:05 Urine Color YELLOW Urine Turbidity CLOUDY Urine pH 6.0 Urine Specific [place] 1.018 Urine Protein 300 mg/dL Urine Glucose (UA) TRACE mg/dL Urine Ketones NEG mg/dL Urine Occult Blood MOD Urine Nitrite NEG Urine Bilirubin NEG Urine Urobilinogen LESS THAN 2.0 MG/DL Urine Leukocyte Esterase MOD Urine RBC 44 /hpf Urine WBC 51 /hpf Urine Squamous Epithelial 1 /hpf Cells Urine Amorphous Sediment MOD Urine Bacteria MANY /hpf Urine Hyaline Casts 0-2 /lpf Urine Mucus FEW /lpf Microscopic Urinalysis Comment CATH-CULTURE IND Blood Gas Puncture Site RT RADIAL Blood Gas Patient Temperature 98.6 Blood Gas HCO3 24 mmol/L Blood Gas Base Excess -0.5 mmol/L Blood Gas Oxygen Saturation 95 % Arterial Blood pH 7.39 Arterial Blood Partial 40 mmHg Pressure CO2 Arterial Blood Partial 103 mmHg Pressure O2 Arterial Blood Oxygen Content 19.4 Vol % Arterial Blood 1.3 % Carboxyhemoglobin Arterial Blood Methemoglobin 1.2 % Blood Gas Hemoglobin 14.5 G/DL Oxygen Delivery Device BIPAP10/5/40% Blood Gas Inspired Oxygen 40 % White Blood Count 19.6 TH/MM3 Red Blood Count 4.52 MIL/MM3 Hemoglobin 13.6 GM/DL Hematocrit 41.6 % Mean Corpuscular Volume 92.1 FL Mean Corpuscular Hemoglobin 30.1 PG Mean Corpuscular Hemoglobin 32.7 % Concent Red Cell Distribution Width 15.5 % Platelet Count 365 TH/MM3 Mean Platelet Volume 8.9 FL Neutrophils (%) (Auto) 78.7 % Lymphocytes (%) (Auto) 4.1 % Monocytes (%) (Auto) 16.5 % Eosinophils (%) (Auto) 0.6 % Basophils (%) (Auto) 0.1 % Neutrophils # (Auto) 15.4 TH/MM3 Lymphocytes # (Auto) 0.8 TH/MM3 Monocytes # (Auto) 3.2 TH/MM3 Eosinophils # (Auto) 0.1 TH/MM3 Basophils # (Auto) 0.0 TH/MM3 CBC Comment AUTO DIFF Differential Comment AUTO DIFF CONFIRMED Platelet Estimate NORMAL Platelet Morphology Comment NORMAL Prothrombin Time 14.2 SEC Prothromb Time International 1.3 RATIO Ratio Sodium Level 142 MEQ/L Potassium Level 4.6 MEQ/L Chloride Level 98 MEQ/L Carbon Dioxide Level 26.6 MEQ/L Anion Gap 17 MEQ/L Blood Urea Nitrogen 84 MG/DL Creatinine 8.94 MG/DL Estimat Glomerular Filtration 6 ML/MIN Rate Random Glucose 273 MG/DL Calcium Level 9.3 MG/DL Phosphorus Level 5.7 MG/DL Imaging Last Impressions Chest X-Ray 09/14/16 0600 Signed Impressions: Service Date/Time: Wednesday, September 14, 2016 04:58 - CONCLUSION: 1. Cardiomegaly. Minimal basilar airspace disease probably atelectasis. Javi Dunn MD Carotid Artery Ultrasound 09/13/16 0000 Signed Impressions: Service Date/Time: Tuesday, September 13, 2016 16:46 - CONCLUSION: Significant plaque remains evident in the carotid bifurcations. Poor visualization and difficulty velocity sampling of the proximal internal carotid arteries was again encountered. Significant carotid stenosis cannot be excluded. Nonvisualization of the vertebral arteries. Mack Brizuela MD Brain MRI 09/09/16 0000 Signed Impressions: Service Date/Time: August 16:36 - CONCLUSION: 1. Findings demonstrate an acute infarction in the left sylvian region, nonhemorrhagic. 2. Small air-fluid level right maxillary sinus and mild bilateral ethmoid sinus disease. Suresh Diaz MD Renal Ultrasound 09/08/16 0000 Signed Impressions: Service Date/Time: Thursday, September 08, 2016 16:04 - CONCLUSION: Large 6.3 cm cyst lower pole laterally left kidney. No evidence of hydronephrosis or obstructive uropathy.. Christian Cooper MD Head CT 09/07/16 0000 Signed Impressions: Service Date/Time: Wednesday, September 07, 2016 22:08 - CONCLUSION: No acute intracranial abnormality. Sinus disease and supraorbital soft tissue swelling. Michael Vasquez MD Objective Remarks GENERAL: Well-nourished, well-developed patient. On NC SKIN: Warm and dry. HEAD: Normocephalic. EYES: No scleral icterus. No injection or drainage. ENT: Oral cavity moist NECK: Supple, trachea midline. No JVD or lymphadenopathy. CARDIOVASCULAR: Regular rate and rhythm without murmurs, gallops, or rubs. RESPIRATORY: Breath sounds equal bilaterally. No accessory muscle use. GASTROINTESTINAL: Abdomen soft, non-tender, nondistended. MUSCULOSKELETAL: No cyanosis, or edema. BACK: Nontender without obvious deformity. EXTREMITIES: Somnolent but opens eyes to stimulation, aphasic. Blank stare, donot follow commands. Moving all extremities, weaker on R side A/P Problem List: (1) Acute ischemic left MCA stroke ICD Code: I63.512 Status: Acute (2) Acute renal failure ICD Code: N17.9 Status: Acute (3) CHF (congestive heart failure), NYHA class III ICD Code: I50.9 Status: Acute (4) Coronary artery disease involving [place] heart ICD Code: I25.10 Status: Chronic (5) HTN (hypertension) ICD Code: I10 Status: Acute (6) CKD (chronic kidney disease) ICD Code: N18.9 Status: Acute Assessment and Plan ASSESSMENT Acute left MCA stroke Aphasia with right hemiparesis Metabolic encephalopathy NSTEMI Known CAD C-diff colitis Obstructive sleep apnea UTI with enterococcus HCAP Acute hypoxemic respiratory failure-resolved Acute on chronic kidney disease Hyperkalemia-resolved DM HTN LEONARD Hyperlipidemia Plan Neuro: -Monitor neuro status. Ativan PRN for agitation -Will repeat CT brain wo contrast as patient's mental status not improving. Discussed with Dr. Nguyen -MRI brain 09/09/16-acute left sylvian region infarct. CT brain 09/07: No acute disease. -Continue aspirin and Plavix. Neuro was following- Cr. Nguyen. -09/13 EEG: within normal. Pulm: -Extubated 09/11 -Continue with oxygen keep sat >92% -Bronchodilators, aspiration precautions. - Might end up needing trach and PEG placeemnt if family desires aggressive care CV: -On Amio drip. Monitor HR and BP keep MAP>65mmHg -Continue with ASA, Plavix, Imdur 60mg daily, Lopressor 50mg q8. -s/p cardiac cath 09/07 showed multivessel disease with 2/6 grafts patent, EF 40% . s/p PCI with stents of the saphenous venous graft to the first diagonal artery. -s/p removal Impella 09/08. Cardiology- Dr. Cummins : -Monitor renal function, I/O's, avoid nephrotoxins. -HD initiated 09/14 with removal 2L. Receiving another HD treatment this morning. -Renal-Dr. Naidu. . GI: - Continue NG tube, Restart TF-Nepro and monitor for residuals. On Protonix 40mg -GI consulted for PEG tube placement -Remains aphasic ID: -Monitor for signs of infections ( Fever, WBC) -Continue Zosyn 3.375 g every 8 hours for probable aspiration pneumonia and Levaquin for UTI. Will give Vanco 1gram x1 -Follow up on cultures from 09/14. Check C-diff PCR Addendum: C-diff PCR is positive will start on Flagyl 500mg IV Q8, Vanco PO 125mg QID, d/c Levaquin, Zosyn. IDeval. Heme: -Monitor CBC Endo: -SSI with accuchecks for glycemic control GI prophylaxis - on Protonix 40mg Q12 DVT prophylaxis - SCD, Heparin 5000 units subcutaneous every 12 Palliative care is following Level 3 Problem Qualifiers (1) Acute renal failure: Qualified Code: N17.0 - Acute renal failure with tubular necrosis Leroy Urena MD Sep 15, 2016 07:46
--- NOTE | 2016-09-15 07:58 | HHI.PR ---
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 09/13 very much unchanged neuro status little less agitated and still neglecting right side and moves left much better retry carotid us I wonder if stroke is from cardio embolism and if cardio feels relatively high risk for cardio embolism then anticoagulation might be in his best 09/15 less responsive, no sedation will obtaain ct brain f/u as he should be improving from neuro standpoint ??adtl infarct, hemorrhagic stroke transformation discussed with lens grinder and RN Subjective Subjective Comments poorly responsive no sedation Active Medications Current Medications Medications (Trade) Dose Ordered Sig/Eric Route Start Time Stop Time Status Last Admin (Ecotrin Ec) 81 mg DAILY PO 09/08/16 09:00 09/14/16 08:34 (Lipitor) 40 mg HS PO 09/07/16 21:30 09/14/16 20:27 (Plavix) 75 mg DAILY PO 09/08/16 09:00 09/14/16 08:34 (Imdur) 60 mg DAILY@07 PO 09/08/16 07:00 09/14/16 04:48 (NS Flush) 2 ml UNSCH PRN IV FLUSH 09/07/16 21:30 09/14/16 23:58 (NS Flush) 2 ml BID IV FLUSH 09/08/16 09:00 09/14/16 20:28 (Tylenol) 650 mg Q6H PRN PO 09/07/16 21:30 09/14/16 23:57 (Morphine Inj) 2 mg Q2H PRN IV 09/07/16 21:30 09/14/16 23:57 (Ativan Inj) 0.5 mg Q2HR PRN IV 09/07/16 21:30 09/14/16 23:57 (Zofran Inj) 4 mg Q6H PRN IV 09/07/16 21:30 09/08/16 22:00 (Reglan Inj) 5 mg Q6H PRN IV 09/07/16 21:30 Miscellaneous Information 1 [id number] XX 09/07/16 21:30 (Chlorhexidine 2% Cloth) Taper DAILY@04 TOP 09/08/16 04:00 09/04/17 03:59 09/13/16 04:00 (Chlorhexidine 2% Cloth) 3 pack UNSCH PRN TOP 09/07/16 21:30 (Apresoline Inj) 20 mg Q4H PRN IV PUSH 09/08/16 04:30 09/13/16 21:29 (D50w (Vial) Inj) 25 ml UNSCH PRN IV PUSH 09/08/16 12:45 (Glucagon Inj) 1 mg UNSCH PRN OTHER 09/08/16 12:45 (NovoLIN R SUPPLEMENTAL SCALE) 1 Q4H SQ 09/08/16 13:00 09/14/16 23:58 (Lopressor) 50 mg Q8H PO 09/09/16 14:00 09/14/16 20:56 (Heparin Inj) 5,000 units Q12HR SQ 09/09/16 09:00 09/14/16 20:28 (Lacrilube Opht Oint) 1 applic BID EACH EYE 09/09/16 21:00 09/14/16 20:31 (Peridex 0.12% Liq) 15 ml BID@08,20 MT 09/10/16 20:00 09/14/16 20:57 Docusate Sodium 100 mg 100 mg BID PO 09/11/16 10:00 09/14/16 20:28 Levofloxacin/ Dextrose 150 ml @ 100 mls/hr Q48H IV 09/12/16 09:00 09/14/16 08:34 Piperacillin Sod/ Tazobactam Sod 50 ml @ 100 mls/hr Q6H IV 09/12/16 14:00 09/15/16 01:50 (NS 1000 ml Inj) 1,000 ml @ 5 mls/hr Q24H IV 09/13/16 11:00 09/14/16 08:35 Pantoprazole Sodium 40 mg 40 mg Q12H IV PUSH 09/13/16 20:00 09/14/16 20:27 (NS 1000 ml Inj) 1,000 ml @ 0 mls/hr Q0M PRN IV 09/14/16 10:48 09/15/16 05:33 Heparin Sodium (Porcine) 8000 units 8,000 units UNSCH PRN IVF 09/14/16 11:00 Sodium Chloride 1,000 ml @ 200 mls/hr Q5H PRN IV 09/14/16 10:48 09/15/16 05:33 (NS 1000 ml Inj) 1,000 ml @ 0 mls/hr Q0M PRN IV 09/14/16 10:48 (Mannitol Inj) 12.5 gm UNSCH PRN IV 09/14/16 11:00 09/15/16 05:33 (Albumin 25% Inj) 25 gm UNSCH PRN IV 09/14/16 11:00 09/15/16 05:34 (NS Flush) 5 ml UNSCH PRN IVF 09/14/16 11:00 09/14/16 16:35 (Heparin Inj) UNSCH PRN .XX 09/14/16 11:00 09/14/16 16:37 (Gentamicin (Dialysis) Inj) 20 mg UNSCH PRN IV 09/14/16 11:00 09/14/16 16:36 (Zofran Inj) 4 mg UNSCH PRN IV 09/14/16 11:00 (Tylenol) 650 mg UNSCH PRN PO 09/14/16 11:00 (Benadryl) 25 mg UNSCH PRN PO 09/14/16 11:00 (Nitrostat Sl) 0.4 mg UNSCH PRN SL 09/14/16 11:00 (Catapres) 0.1 mg UNSCH PRN PO 09/14/16 11:00 (Gelfoam 12 Mm/7 Mm Top) 1 foam UNSCH PRN TOP 09/14/16 11:00 (NS Flush) UNSCH PRN IVF 09/14/16 16:00 Heparin Sodium (Porcine) UNSCH PRN IVF 09/14/16 16:00 Amiodarone HCl 450 mg/Dextrose 250 ml @ 0 mls/hr CONTINUOUS IV 09/15/16 01:15 (Vancomycin Inj/ NS 250 ml Inj) 250 ml @ 250 mls/hr ONCE ONCE IV 09/15/16 08:00 09/15/16 08:59 Allergies Allergies Coded Allergies No Known Allergies (Verified09/07/16) Exam I&O / VS 09/14/16 09/14/16 09/15/16 15:00 23:00 07:00 Intake Total 932 ml 339 ml 537 ml Output Total 500 ml 2150 ml 30 ml Balance 432 ml -1811 ml 507 ml IV Total 766 ml 54 ml 237 ml Tube Feeding 166 ml 185 ml Other 100 ml 300 ml Output Urine Total 500 ml 150 ml 30 ml Hemodialysis 2000 ml # Bowel Movements 0 0 1 Vital Signs Date Time Temp Pulse Resp B/P Pulse Ox O2 Delivery O2 Flow Rate FiO2 09/15/16 07:22 100 25 09/15/16 06:00 109 09/15/16 04:01 97 40 09/15/16 04:00 143 09/15/16 04:00 99 Bi-Pap 09/15/16 04:00 98.3 131 41 138/88 99 09/15/16 02:00 143 09/15/16 01:06 96 40 09/15/16 00:00 102.0 143 20 123/82 96 09/15/16 00:00 137 09/15/16 00:00 96 Nasal Cannula 4.00 09/14/16 22:05 98 40 09/14/16 22:00 135 09/14/16 20:45 98 40 09/14/16 20:00 99.2 129 29 126/65 100 09/14/16 20:00 100 Nasal Cannula 4.00 09/14/16 20:00 129 09/14/16 19:39 97 Nasal Cannula 4.00 09/14/16 18:00 122 09/14/16 16:30 126 09/14/16 16:30 96 Nasal Cannula 4.00 09/14/16 16:30 100.8 126 32 141/96 97 09/14/16 14:00 122 09/14/16 12:00 125 09/14/16 12:00 96 Nasal Cannula 4.00 09/14/16 12:00 100.2 125 26 169/90 98 09/14/16 10:00 122 09/14/16 08:24 98 Nasal Cannula 4.00 09/14/16 08:00 100.9 122 18 177/86 95 09/14/16 08:00 96 Nasal Cannula 4.00 09/14/16 08:00 120 Objective Micro and Labs Laboratory Tests Test 09/14/16 09/14/16 09/15/16 08:45 21:20 04:05 Urine Color YELLOW Urine Turbidity CLOUDY Urine pH 6.0 Urine Specific [place] 1.018 Urine Protein 300 Urine Glucose (UA) TRACE Urine Ketones NEG Urine Occult Blood MOD Urine Nitrite NEG Urine Bilirubin NEG Urine Urobilinogen LESS THAN 2.0 Urine Leukocyte Esterase MOD Urine RBC 44 Urine WBC 51 Urine Squamous Epithelial 1 Cells Urine Amorphous Sediment MOD Urine Bacteria MANY Urine Hyaline Casts 0-2 Urine Mucus FEW Microscopic Urinalysis Comment CATH-CULTURE IND Blood Gas Puncture Site RT RADIAL Blood Gas Patient Temperature 98.6 Blood Gas HCO3 24 Blood Gas Base Excess -0.5 Blood Gas Oxygen Saturation 95 Arterial Blood pH 7.39 Arterial Blood Partial 40 Pressure CO2 Arterial Blood Partial 103 Pressure O2 Arterial Blood Oxygen Content 19.4 Arterial Blood 1.3 Carboxyhemoglobin Arterial Blood Methemoglobin 1.2 Blood Gas Hemoglobin 14.5 Oxygen Delivery Device BIPAP10/5/40% Blood Gas Inspired Oxygen 40 White Blood Count 19.6 Red Blood Count 4.52 Hemoglobin 13.6 Hematocrit 41.6 Mean Corpuscular Volume 92.1 Mean Corpuscular Hemoglobin 30.1 Mean Corpuscular Hemoglobin 32.7 Concent Red Cell Distribution Width 15.5 Platelet Count 365 Mean Platelet Volume 8.9 Neutrophils (%) (Auto) 78.7 Lymphocytes (%) (Auto) 4.1 Monocytes (%) (Auto) 16.5 Eosinophils (%) (Auto) 0.6 Basophils (%) (Auto) 0.1 Neutrophils # (Auto) 15.4 Lymphocytes # (Auto) 0.8 Monocytes # (Auto) 3.2 Eosinophils # (Auto) 0.1 Basophils # (Auto) 0.0 CBC Comment AUTO DIFF Differential Comment AUTO DIFF CONFIRMED Platelet Estimate NORMAL Platelet Morphology Comment NORMAL Prothrombin Time 14.2 Prothromb Time International 1.3 Ratio Sodium Level 142 Potassium Level 4.6 Chloride Level 98 Carbon Dioxide Level 26.6 Anion Gap 17 Blood Urea Nitrogen 84 Creatinine 8.94 Estimat Glomerular Filtration 6 Rate Random Glucose 273 Calcium Level 9.3 Phosphorus Level 5.7 Date/Time Procedure Status Source Growth 09/14/16 11:01 Aerobic Blood Culture Received Blood Peripheral Pending 09/14/16 11:01 Anaerobic Blood Culture Received Blood Peripheral Pending 09/14/16 08:45 Urine Culture Received Urine Catheterized Urine Pending 09/10/16 11:05 Aerobic Blood Culture - Preliminary Resulted Blood Peripheral NO GROWTH IN 4 DAYS 09/10/16 11:05 Anaerobic Blood Culture - Preliminary Resulted Blood Peripheral NO GROWTH IN 4 DAYS 09/10/16 08:00 Gram Stain - Final Complete Sputum Endotracheal 09/10/16 08:00 Sputum Culture - Final Complete Sputum Endotracheal HEAVY GROWTH NORMAL RESPIRATORY ADAL Shahnaz Nguyen MD Sep 15, 2016 07:58
[2016-09-15] MEDS ORDERED: VANCOMYCIN INJ 1,000 MG in SODIUM CHLOR 0.9% 250 ML INJ 250 ML IV ONE (08:00)
[2016-09-15] MEDS: CHLORHEXIDINE 0.12% (ORAL KIT) 15 ML CUP MT SCH ×2 (08:00→20:45)
[2016-09-15] MEDS: DOCUSATE SODIUM 100 MG/10 ML UDC PO SCH ×2 (08:11→21:04)
[2016-09-15] MEDS: PANTOPRAZOLE SODIUM 40 MG VIAL IV PUSH SCH ×2 (08:11→20:48)
[2016-09-15] MEDS: ASPIRIN EC 81 MG TABEC PO SCH (08:11)
[2016-09-15] MEDS: HEPARIN SODIUM - SQ 10,000 UNITS/ML VIAL SQ SCH ×2 (08:11→21:06)
[2016-09-15] MEDS: CLOPIDOGREL 75 MG TAB PO SCH (08:11)
[2016-09-15] MEDS: SODIUM CHLORIDE 0.9% FLUSH 5 ML FLUSH IV FLUSH SCH ×2 (08:12→21:04)
[2016-09-15] MEDS: ARTIFICIAL TEARS OPTH OINT 3.5 APPLIC/3.5 GM TUBO EACH EYE SCH ×2 (08:12→21:04)
[2016-09-15] MEDS ORDERED: TERBUTALINE INJ 1 MG/ML AMP SQ PRN (09:00)
[2016-09-15] MEDS: SODIUM CHLOR 0.9% 1000 ML INJ 1,000 ML IV SCH (09:07)
--- NOTE | 2016-09-15 09:07 | HHI.NPPN ---
Subjective History of Present Illness 66-year-old male with history of coronary artery disease status post CABG, osteoarthritis, diabetes, hyperlipidemia who was admitted there with unstable angina and underwent heart catheterization found to have significant blockages requiring stent and impella device, he has acute renal failure. Additional Remarks Patient remain unresponsive off sedation and Vent Objective Data Data 09/14/16 09/15/16 19:00 07:00 Intake Total 932 ml 876 ml Output Total 2500 ml 180 ml Balance -1568 ml 696 ml IV Total 766 ml 291 ml Tube Feeding 166 ml 185 ml Other 400 ml Output Urine Total 500 ml 180 ml Hemodialysis 2000 ml # Bowel Movements 0 1 Vital Signs Date Time Temp Pulse Resp B/P Pulse Ox O2 Delivery O2 Flow Rate FiO2 09/15/16 07:22 100 25 09/15/16 06:00 109 09/15/16 04:01 97 40 09/15/16 04:00 143 09/15/16 04:00 99 Bi-Pap 09/15/16 04:00 98.3 131 41 138/88 99 09/15/16 02:00 143 09/15/16 01:06 96 40 09/15/16 00:00 102.0 143 20 123/82 96 09/15/16 00:00 137 09/15/16 00:00 96 Nasal Cannula 4.00 09/14/16 22:05 98 40 09/14/16 22:00 135 09/14/16 20:45 98 40 09/14/16 20:00 99.2 129 29 126/65 100 09/14/16 20:00 100 Nasal Cannula 4.00 09/14/16 20:00 129 09/14/16 19:39 97 Nasal Cannula 4.00 09/14/16 18:00 122 09/14/16 16:30 126 09/14/16 16:30 96 Nasal Cannula 4.00 09/14/16 16:30 100.8 126 32 141/96 97 09/14/16 14:00 122 09/14/16 12:00 125 09/14/16 12:00 96 Nasal Cannula 4.00 09/14/16 12:00 100.2 125 26 169/90 98 09/14/16 10:00 122 -: 09/15/16 0405 09/15/16 0405 Microbiology 09/14/16 Aerobic Blood Culture, Received Pending 09/14/16 Anaerobic Blood Culture, Received Pending 09/14/16 Aerobic Blood Culture, Received Pending 09/14/16 Anaerobic Blood Culture, Received Pending Physical Exam Pulmonary Resp Exam: Crackles, Rhonchi, Decreased Bases, Diminished Breath Sounds Cardiology CV Exam: Regular, Normal Sinus Rhythm Gastrointestinal/Abdomen GI Exam: Soft, Non-Tender, Bowel Sounds Present, Distended Extremeties Extremities Exam: Moderate Edema, Pitting Edema, Dependent Edema Neurologic Neuro Exam: Sedated Assessment/Plan Problem List: (1) Acute renal failure Plan: Patient has received heart catheterization He has elevation in the creatinine and he is oliguric. he had 2nd treatment earlier did not do well BP low UF 500 cc yesterday HD 2 L total of 2.5 L in 2 days BUN/Cr higher (2) Hyperkalemia Plan: Resolved (3) Chronic kidney disease Plan: He has stage III chronic kidney disease due to diabetic (4) CHF (congestive heart failure), NYHA class III Plan: Continue to monitor for improvement (5) Coronary artery disease involving [place] heart Plan: Review his bypass and stents (6) Hypertension, essential, benign Plan: Monitor blood pressure (7) Diabetes mellitus, type II Plan: Monitor blood glucose (8) UTI (lower urinary tract infection) Plan: Group D enterococcus less than 10,000, on Zosyn (9) CVA (cerebral vascular accident) Plan: remain unresponsive moves left side more Problem Qualifiers (1) Acute renal failure: Qualified Code: N17.0 - Acute renal failure with tubular necrosis (2) Chronic kidney disease: Qualified Code: N18.4 - Chronic kidney disease, stage 4 (severe) Marisol Naidu MD Sep 15, 2016 09:06
--- NOTE | 2016-09-15 10:37 | RADRPT ---
EXAM DATE/TIME: 09/15/2016 10:15 [facility] COMPARISON: MRI BRAIN W/O CONTRAST, September 09, 2016, 16:36. CT BRAIN W/O CONTRAST, September 07, 2016, 22:08. INDICATIONS : Encephalopathy. RADIATION DOSE: 47.89 CTDIvol (mGy) MEDICAL HISTORY : Stroke. Cardiovascular disease Hypertension.Diabetes. SURGICAL HISTORY : None. ENCOUNTER: Initial ACUITY: 1 day PAIN SCALE: Non-responsive LOCATION: cranial TECHNIQUE: Multiple contiguous axial images were obtained of the head. Using automated exposure control and adj ustment of the mA and/or kV according to patient size, radiation dose was kept as low as reasonably a chievable to obtain optimal diagnostic quality images. FINDINGS: CEREBRUM: The examination demonstrates an area of decreased attenuation involving the left MCA distribution mos t consistent with a subacute area of cortical infarct. There is no evidence of hemorrhage within this . This is new compared to previous dated 09/07/16. The ventricles are normal in size and configuration . No abnormal extra-axial fluid collections are seen. POSTERIOR FOSSA: The cerebellum and brainstem are intact. The 4th ventricle is midline. The cerebellopontine angle i s unremarkable. EXTRACRANIAL: The visualized portion of the orbits is intact. SKULL: The calvaria is intact. No evidence of skull fracture. CONCLUSION: 1. Sizable area of decreased attenuation in the left MCA distribution most consistent with subacute c ortical infarct. This there is stable compared to previous MR dated 09/09/16. Sanket Gonzalez MD on September 15, 2016 at 10:34 Board Certified Radiologist. This report was verified electronically.
--- NOTE | 2016-09-15 11:20 | HHI.HCPN ---
Reason for visit a. To assist with evaluation and management of symptoms including: shortness of breath and debility. b. To assist medical decision maker(s) with: better understanding of current medical conditions; weighing benefits/burdens of medical treatment options; making medical treatment decisions. . Subjective/Interval History Patient's clinical condition continues to worsen. He was seen in ICU, unresponsive to tactile or verbal stimuli. BiPAP in place, respiratory rate in the mid 30s, 50% FiO2.. Patient underwent hemodialysis yesterday for BUN/ creatinine 85/7.31, 2 L out. BUN/creatinine this morning 84/8.94. Underwent hemodialysis this morning but was unable to tolerate secondary to hypertension, 500 mL out. Patient was placed on amiodarone drip overnight secondary to A. fib with RVR. This was discontinued this morning secondary to hypertension. Patient now on Rory-Synephrine. Laboratory today showing WBC trending up, 19.6 today from 14.4 yesterday. Hgb 13.6, platelet 365. NA 142, potassium 4.6. Neurology -Dr Nguyen following, Repeat head CT 09/15/16 showing sizable area of decreased attenuation in the left MCA most consistent with subacute infarct. Patient has been off sedation for the past 4 days, worsening neurological status. Patient afebrile overnight, Max temperature 102.0. Tube feeding held secondary to high residuals. Case discussed with bedside RN. . Family/friend interactions Telephone conversation with patient's son Sedrick who is in [place]. Plan to fly to [place] this afternoon, likely to arrived to Hospital between 7 and 8 PM tonight. Medical update provided. Discuss patient's worsening clinical condition and share concerns regarding worsening respiratory status, worsening renal function, and no improvement in neurological status. Review CPR, intubation and mechanical ventilation given patient's critical condition and poor prognosis for a meaningful clinical/neurological recovery. Son asking to continue full code and aggressive care to include intubation and mechanical ventilation if medically indicated. Son made aware that despite continuation of aggressive measures, patient may not survive for much longer given his worsening clinical condition. Son verbalized understanding. Ongoing emotional support and active listening provided. . Advance Directives Advance Directive Specifics Health Care Surrogate(s): Max Dubose not sure if patient has completed advance directives. As per [place] statute, healthcare decision-making falls to patient's 3 children. . Documented care wishes: Unclear at this time if advance directives have been completed. . Significant change in goals: Full code. Continue aggressive medical management to include intubation and mechanical ventilation if medically indicated. Goals of care will be readdressed once all 3 children are present, son Sedrick to arrive tonight from [place]. . Objective Vital Signs Date Time Temp Pulse Resp B/P Pulse Ox O2 Delivery O2 Flow Rate FiO2 09/15/16 07:22 100 25 09/15/16 06:00 109 09/15/16 04:01 97 40 09/15/16 04:00 143 09/15/16 04:00 99 Bi-Pap 09/15/16 04:00 98.3 131 41 138/88 99 09/15/16 02:00 143 09/15/16 01:06 96 40 09/15/16 00:00 102.0 143 20 123/82 96 09/15/16 00:00 137 09/15/16 00:00 96 Nasal Cannula 4.00 09/14/16 22:05 98 40 09/14/16 22:00 135 09/14/16 20:45 98 40 09/14/16 20:00 99.2 129 29 126/65 100 09/14/16 20:00 100 Nasal Cannula 4.00 09/14/16 20:00 129 09/14/16 19:39 97 Nasal Cannula 4.00 09/14/16 18:00 122 09/14/16 16:30 126 09/14/16 16:30 96 Nasal Cannula 4.00 09/14/16 16:30 100.8 126 32 141/96 97 09/14/16 14:00 122 09/14/16 12:00 125 09/14/16 12:00 96 Nasal Cannula 4.00 09/14/16 12:00 100.2 125 26 169/90 98 Intake & Output 09/15/16 09/15/16 07:00 19:00 Intake Total 876 ml Output Total 180 ml 500 ml Balance 696 ml -500 ml IV Total 291 ml Tube Feeding 185 ml Other 400 ml Output Urine Total 180 ml Hemodialysis 500 ml # Bowel Movements 1 Physical Exam CONSTITUTIONAL/GENERAL: This is an adequately nourished patient, in moderate distress secondary to tachypnea and increased work of breathing. Obtunded. BiPAP mask in place. TUBES/LINES/DRAINS: PIV's, SCDs, Guillen catheter, dialysis catheter. BiPAP mask. SKIN: No jaundice, rashes, or lesions. No wounds seen anteriorly. Skin temperature appropriate. Not diaphoretic. Dry skin. HEAD: Atraumatic. Normocephalic. ENT: Unable to evaluate hearing secondary to clinical condition.. Nose without bleeding or purulent drainage. Mouth close. NECK: Trachea midline. Supple. CARDIOVASCULAR: Tachycardic with heart rate in the 110s. irregular rate and rhythm. RESPIRATORY/CHEST: Symmetric, tachypneic with respiratory rate in the 30s. Increased work of breathing and abdominal breathing noted. Coarse breath sounds anteriorly. GASTROINTESTINAL: Abdomen soft, large, round. Bowel sounds present. GENITOURINARY: Without palpable bladder distension. Guillen catheter in place. MUSCULOSKELETAL: Extremities without clubbing, cyanosis. NEUROLOGICAL: Not sedated. Not tracking. Not following any commands. Not attempting to communicate. PSYCHIATRIC: Unable to assess secondary to clinical condition. Appears calm. . Diagnostic Tests Laboratory Laboratory Tests Test 09/13/16 09/13/16 09/13/16 09/14/16 08:03 18:25 18:43 05:51 White Blood Count 12.4 TH/MM3 12.3 TH/MM3 (4.0-11.0) (4.0-11.0) Red Blood Count 4.22 MIL/MM3 4.06 MIL/MM3 (4.50-5.90) (4.50-5.90) Hemoglobin 12.6 GM/DL 12.1 GM/DL (13.0-17.0) (13.0-17.0) Hematocrit 38.0 % 36.4 % (39.0-51.0) (39.0-51.0) Mean Corpuscular Volume 89.9 FL 89.7 FL (80.0-100.0) (80.0-100.0) Mean Corpuscular Hemoglobin 29.8 PG 29.8 PG (27.0-34.0) (27.0-34.0) Mean Corpuscular Hemoglobin 33.1 % 33.2 % Concent (32.0-36.0) (32.0-36.0) Red Cell Distribution Width 15.3 % 15.5 % (11.6-17.2) (11.6-17.2) Platelet Count 257 TH/MM3 241 TH/MM3 (150-450) (150-450) Mean Platelet Volume 8.7 FL 8.6 FL (7.0-11.0) (7.0-11.0) Neutrophils (%) (Auto) 86.5 % (16.0-70.0) Lymphocytes (%) (Auto) 3.1 % (9.0-44.0) Monocytes (%) (Auto) 9.8 % (0.0-8.0) Eosinophils (%) (Auto) 0.3 % (0.0-4.0) Basophils (%) (Auto) 0.3 % (0.0-2.0) Neutrophils # (Auto) 10.7 TH/MM3 (1.8-7.7) Lymphocytes # (Auto) 0.4 TH/MM3 (1.0-4.8) Monocytes # (Auto) 1.2 TH/MM3 (0-0.9) Eosinophils # (Auto) 0.0 TH/MM3 (0-0.4) Basophils # (Auto) 0.0 TH/MM3 (0-0.2) CBC Comment DIFF FINAL Differential Comment Sodium Level 143 MEQ/L 146 MEQ/L (136-145) (136-145) Potassium Level 3.3 MEQ/L 3.4 MEQ/L (3.5-5.1) (3.5-5.1) Chloride Level 102 MEQ/L 106 MEQ/L (98-107) (98-107) Carbon Dioxide Level 28.5 MEQ/L 25.9 MEQ/L (21.0-32.0) (21.0-32.0) Anion Gap 13 MEQ/L (5-15) 14 MEQ/L (5-15) Blood Urea Nitrogen 70 MG/DL (7-18) 85 MG/DL (7-18) Creatinine 5.40 MG/DL 7.31 MG/DL (0.60-1.30) (0.60-1.30) Estimat Glomerular Filtration 11 ML/MIN (>89) 7 ML/MIN (>89) Rate Random Glucose 268 MG/DL 225 MG/DL (74-106) (74-106) Calcium Level 9.1 MG/DL 9.2 MG/DL (8.5-10.1) (8.5-10.1) Total Bilirubin 0.8 MG/DL 0.7 MG/DL (0.2-1.0) (0.2-1.0) Aspartate Amino Transf 56 U/L (15-37) 27 U/L (15-37) (AST/SGOT) Alanine Aminotransferase 48 U/L (12-78) 37 U/L (12-78) (ALT/SGPT) Alkaline Phosphatase 72 U/L (45-117) 63 U/L (45-117) Total Protein 8.5 GM/DL 8.5 GM/DL (6.4-8.2) (6.4-8.2) Albumin 3.6 GM/DL 3.5 GM/DL (3.4-5.0) (3.4-5.0) Blood Gas Puncture Site RT RADIAL Blood Gas Patient Temperature 98.6 Blood Gas HCO3 27 mmol/L (22-26) Blood Gas Base Excess 2.8 mmol/L (-2-2) Blood Gas Oxygen Saturation 95 % (90-100) Arterial Blood pH 7.38 (7.380-7.420) Arterial Blood Partial 47 mmHg (38-42) Pressure CO2 Arterial Blood Partial 105 mmHg Pressure O2 (61-120) Arterial Blood Oxygen Content 16.6 Vol % (12.0-20.0) Arterial Blood 1.4 % (0-4) Carboxyhemoglobin Arterial Blood Methemoglobin 1.2 % (0-2) Blood Gas Hemoglobin 12.3 G/DL (12.0-16.0) Oxygen Delivery Device NASAL CANNULA Blood Gas Liter Flow 3 L/M Test 09/14/16 09/14/16 09/14/16 09/15/16 05:57 08:45 21:20 04:05 White Blood Count 14.4 TH/MM3 19.6 TH/MM3 (4.0-11.0) (4.0-11.0) Red Blood Count 4.27 MIL/MM3 4.52 MIL/MM3 (4.50-5.90) (4.50-5.90) Hemoglobin 12.8 GM/DL 13.6 GM/DL (13.0-17.0) (13.0-17.0) Hematocrit 38.4 % 41.6 % (39.0-51.0) (39.0-51.0) Mean Corpuscular Volume 90.0 FL 92.1 FL (80.0-100.0) (80.0-100.0) Mean Corpuscular Hemoglobin 29.9 PG 30.1 PG (27.0-34.0) (27.0-34.0) Mean Corpuscular Hemoglobin 33.2 % 32.7 % Concent (32.0-36.0) (32.0-36.0) Red Cell Distribution Width 15.2 % 15.5 % (11.6-17.2) (11.6-17.2) Platelet Count 269 TH/MM3 365 TH/MM3 (150-450) (150-450) Mean Platelet Volume 8.6 FL 8.9 FL (7.0-11.0) (7.0-11.0) Neutrophils (%) (Auto) 80.8 % 78.7 % (16.0-70.0) (16.0-70.0) Lymphocytes (%) (Auto) 5.0 % 4.1 % (9.0-44.0) (9.0-44.0) Monocytes (%) (Auto) 12.2 % 16.5 % (0.0-8.0) (0.0-8.0) Eosinophils (%) (Auto) 1.5 % (0.0-4.0) 0.6 % (0.0-4.0) Basophils (%) (Auto) 0.5 % (0.0-2.0) 0.1 % (0.0-2.0) Neutrophils # (Auto) 11.6 TH/MM3 15.4 TH/MM3 (1.8-7.7) (1.8-7.7) Lymphocytes # (Auto) 0.7 TH/MM3 0.8 TH/MM3 (1.0-4.8) (1.0-4.8) Monocytes # (Auto) 1.8 TH/MM3 3.2 TH/MM3 (0-0.9) (0-0.9) Eosinophils # (Auto) 0.2 TH/MM3 0.1 TH/MM3 (0-0.4) (0-0.4) Basophils # (Auto) 0.1 TH/MM3 0.0 TH/MM3 (0-0.2) (0-0.2) CBC Comment DIFF FINAL AUTO DIFF Differential Comment AUTO DIFF CONFIRMED Urine Color YELLOW (YELLW/STRAW) Urine Turbidity CLOUDY (CLEAR) Urine pH 6.0 (5.0-8.5) Urine Specific [place] 1.018 (1.002-1.035) Urine Protein 300 mg/dL (NEG-TRACE) Urine Glucose (UA) TRACE mg/dL (NEG) Urine Ketones NEG mg/dL (NEG) Urine Occult Blood MOD (NEG) Urine Nitrite NEG (NEG) Urine Bilirubin NEG (NEG) Urine Urobilinogen LESS THAN 2.0 MG/DL (LESS THAN 2.0) Urine Leukocyte Esterase MOD (NEG) Urine RBC 44 /hpf (0-3) Urine WBC 51 /hpf (0-5) Urine Squamous Epithelial 1 /hpf (0-5) Cells Urine Amorphous Sediment MOD Urine Bacteria MANY /hpf (NONE) Urine Hyaline Casts 0-2 /lpf (RARE) Urine Mucus FEW /lpf (OCC) Microscopic Urinalysis Comment CATH-CULTURE IND Blood Gas Puncture Site RT RADIAL Blood Gas Patient Temperature 98.6 Blood Gas HCO3 24 mmol/L (22-26) Blood Gas Base Excess -0.5 mmol/L (-2-2) Blood Gas Oxygen Saturation 95 % (90-100) Arterial Blood pH 7.39 (7.380-7.420) Arterial Blood Partial 40 mmHg (38-42) Pressure CO2 Arterial Blood Partial 103 mmHg Pressure O2 (61-120) Arterial Blood Oxygen Content 19.4 Vol % (12.0-20.0) Arterial Blood 1.3 % (0-4) Carboxyhemoglobin Arterial Blood Methemoglobin 1.2 % (0-2) Blood Gas Hemoglobin 14.5 G/DL (12.0-16.0) Oxygen Delivery Device BIPAP10/5/40% Blood Gas Inspired Oxygen 40 % Platelet Estimate NORMAL (NORMAL) Platelet Morphology Comment NORMAL (NORMAL) Prothrombin Time 14.2 SEC (9.8-11.6) Prothromb Time International 1.3 RATIO Ratio Sodium Level 142 MEQ/L (136-145) Potassium Level 4.6 MEQ/L (3.5-5.1) Chloride Level 98 MEQ/L (98-107) Carbon Dioxide Level 26.6 MEQ/L (21.0-32.0) Anion Gap 17 MEQ/L (5-15) Blood Urea Nitrogen 84 MG/DL (7-18) Creatinine 8.94 MG/DL (0.60-1.30) Estimat Glomerular Filtration 6 ML/MIN (>89) Rate Random Glucose 273 MG/DL (74-106) Calcium Level 9.3 MG/DL (8.5-10.1) Phosphorus Level 5.7 MG/DL (2.5-4.9) Result Diagram: 09/15/16 0405 09/15/16 0405 Microbiology Microbiology Date/Time Procedure Status Source Growth 09/14/16 08:45 Urine Culture Received Urine Catheterized Urine Pending 09/14/16 10:55 Aerobic Blood Culture Received Blood Peripheral Pending 09/14/16 10:55 Anaerobic Blood Culture Received Blood Peripheral Pending 09/14/16 11:01 Aerobic Blood Culture Received Blood Peripheral Pending 09/14/16 11:01 Anaerobic Blood Culture Received Blood Peripheral Pending Imaging Last Impressions Head CT 09/15/16 0000 Signed Impressions: Service Date/Time: Thursday, September 15, 2016 10:15 - CONCLUSION: 1. Sizable area of decreased attenuation in the left MCA distribution most consistent with subacute cortical infarct. This there is stable compared to previous MR dated 09/09/16. Sanket Gonzalez MD Chest X-Ray 09/14/16 0600 Signed Impressions: Service Date/Time: Wednesday, September 14, 2016 04:58 - CONCLUSION: 1. Cardiomegaly. Minimal basilar airspace disease probably atelectasis. Javi Dunn MD Catheter Placement X-Ray 09/14/16 0000 Signed Impressions: Service Date/Time: Wednesday, September 14, 2016 00:00 - CONCLUSION: Uncomplicated line placement as above. Wesley Chaudhari MD Carotid Artery Ultrasound 09/13/16 0000 Signed Impressions: Service Date/Time: Tuesday, September 13, 2016 16:46 - CONCLUSION: Significant plaque remains evident in the carotid bifurcations. Poor visualization and difficulty velocity sampling of the proximal internal carotid arteries was again encountered. Significant carotid stenosis cannot be excluded. Nonvisualization of the vertebral arteries. Mack Brizuela MD Brain MRI 09/09/16 0000 Signed Impressions: Service Date/Time: August 16:36 - CONCLUSION: 1. Findings demonstrate an acute infarction in the left sylvian region, nonhemorrhagic. 2. Small air-fluid level right maxillary sinus and mild bilateral ethmoid sinus disease. Suresh Diaz MD Renal Ultrasound 09/08/16 0000 Signed Impressions: Service Date/Time: Thursday, September 08, 2016 16:04 - CONCLUSION: Large 6.3 cm cyst lower pole laterally left kidney. No evidence of hydronephrosis or obstructive uropathy.. Christian Cooper MD Procedures * 09/11/16 -extubation. * 09/10/16 -intubation. * 09/07/16 -cardiac catheter with angioplasty and stent placement. . Assessment and Plan Disease Oriented Problem List: (1) Acute tubular necrosis (2) Acute ischemic left MCA stroke (3) CAD (coronary artery disease) of bypass graft (4) CHF (congestive heart failure), NYHA class II Symptom Scale: (1) Shortness of breath 0-10 Scale: Unable to quantify Comment: Intubated on 09/10/16 and extubated on 09/11/16. Worsening respiratory status, currently on BiPAP 50% FiO2. High risk for reintubation. (2) Debility 0-10 Scale: Unable to quantify Comment: Secondary to CVA, acute complications, hospitalization. Pertinent Non-Medical Issues Psychosocial: . Has 2 children. Living independently prior to this hospitalization. Spiritual: Sikh. Legal: Unknown if advance directives have been completed. Ethical issues impacting care: Unknown if advance directives have been completed. . Important Contacts Max Birmingham [phone]. Son Vaibhav Abarca Daughter Yani. . Prognosis Mr. Ferguson is a 66 y/o male with an adhesive significant cardiac history to include stenting in 2010, CAD status post 6 vessel CABG in 2011, and angioplasty and stenting in September 06. He was found to have significant blockage requiring angioplasty and stenting. 2 of 6 grafts are currently patent. Post cardiac catheter, patient developed aphasia and right sided hemiparesis. MRI of the brain showing acute nonhemorrhagic infarct. Patient was intubated and subsequently extubated secondary to respiratory failure and altered mental status. Vertical condition remains the same, he is obtunded and not following any commands. Patient with history of CKD now with acute tubular necrosis requiring renal replacement therapy. His prognosis is poor for a meaningful neurological recovery even if he is to survive this hospitalization given his age, severity of cardiac disease, complications to include stroke, and multiple comorbidities. He is at a very high risk for further decline, complications and . . Code Status: Full Code Plan * CODE STATUS: Full code. Risks, benefits and limitations of CPR, intubation and mechanical ventilation readdressed with patient's son on 09/15/16 given patient's worsening clinical condition. Encouraged to discuss further with family. * MEDICAL DECISION-MAKING: Patient incapacitated to make healthcare decisions secondary to clinical condition, unclear if he will regain. Son Sedrick not sure if patient has completed advance directives. As per [place] statute, healthcare decision-making falls to patient's 3 children. * GOALS OF CARE: Full code. Continue aggressive medical management until patient's son Sedrick arrives from [facility] 09/15/16. Telephone conversation with patient's son Sedrick. Medical update provided. Discussed patient's worsening clinical condition and share concerns regarding worsening respiratory status, worsening renal function, and no improvement in neurological status. Review CPR, intubation and mechanical ventilation given patient's critical condition and poor prognosis for a meaningful clinical/ neurological recovery. Son asking to continue full code and aggressive care to include intubation and mechanical ventilation if medically indicated. Son made aware that despite continuation of aggressive measures, patient may not survive to discharge given his worsening clinical condition. * SYMPTOMS: == Shortness of breath, patient recently intubated and extubated. Worsening clinical condition. Currently on BiPAP at 50% FiO2. Very high risk for reintubation. == Debility, secondary to CVA, acute events and hospitalization. == Anxiety, patient appears calm. Sedation off for the past 4 days. * Case discussed with [facility] -bedside RN. * Palliative care contact information has been provided to patient's son Sedrick. * Palliative care will continue to follow-up to assist with symptom management and to further evaluate goals of care as the clinical course of goals. Pending arrival of max Dubose from [place] tomorrow 09/15/16. . Time Spent Total Floor Time (mins): 42 (Total time to include review of medical records, physical exam, telephone conversation with patient's son and case discussion with bedside RN.) >50% Counseling/Coord of Care: Yes Attestation To help prompt me to consider important information that might be impacting today's encounter and assessment, information from prior notes written by myself or my colleagues may have been "brought forward" into today's note. My signature on this note, however, is an attestation that I personally performed the exam, history, and/or decision-making noted today, and, unless otherwise indicated, the interactions with patient, family, and staff as well as the review of records all occurred today. I also attest that the listed assessment and stated plan reflect my best clinical judgment today based on the combination of historical information, prior notes, and today's exam/ interactions. When time spent is documented, it refers only to time spent today by the signer, or if indicated, combined time spent today by collaborating physician/nurse practitioner. Simran Sorto Sep 15, 2016 11:20
[2016-09-15 11:56] LABS: C. DIFF EPI 027 PRESUMPTIVE NEGATIVE (NEGATIVE)
[2016-09-15] MEDS ORDERED: ETOMIDATE 20 MG/10 ML VIAL ONE (12:26)
[2016-09-15] MEDS ORDERED: PROPOFOL 1000 MG/100 ML INJ 100 ML ONE (12:26)
[2016-09-15] MEDS ORDERED: ETOMIDATE 20 MG/10 ML VIAL IV PUSH ONE (13:45)
[2016-09-15] MEDS ORDERED: PROPOFOL 1000 MG/100 ML IV SCH (13:45)
[2016-09-15 13:59] LABS: BLOOD GAS BASE EXCESS -3.5 mmol/L (-2-2); BLOOD GAS CARBOXYHEMOGLOBIN 1.2 % (0-4); BLOOD GAS HCO3 21 mmol/L (22-26); BLOOD GAS METHEMOGLOBIN 1.5 % (0-2); BLOOD GAS O2 HGB SATURATION 97 % (90-100); BLOOD GAS OXYGEN CONTENT 16.8 Vol % (12.0-20.0); BLOOD GAS PCO2 35 mmHg (38-42); BLOOD GAS PO2 175 mmHg (61-120); BLOOD GAS TOTAL HGB 12.1 G/DL (12.0-16.0); TEMP CORR TO 98.6
[2016-09-15 14:00] LABS: CRITICAL VALUE NO; DRAW SITE LT RADIAL; FIO2 50 %; NUMBER OF ARTERIAL PUNCTURES 2; OXYGEN DEVICE VENTILATOR; ULNAR PULSE PRESENT; VENT SETTINGS PRVC/AC
[2016-09-15 14:01] LABS: STAT NO
[2016-09-15 14:21] LABS: C. DIFF TOXIN PCR POSITIVE (NEGATIVE)
--- NOTE | 2016-09-15 14:24 | RADRPT ---
EXAM DATE/TIME: 09/15/2016 12:56 [facility] COMPARISON: CHEST SINGLE AP, September 14, 2016, 15:59. INDICATIONS : Post intubation. MEDICAL HISTORY : Stroke. Cardiovascular disease Hypertension.Diabetes. SURGICAL HISTORY : CABG. ENCOUNTER: Subsequent ACUITY: 4 - 6 days PAIN SCORE: Non-responsive. LOCATION: Bilateral chest FINDINGS: A single view of the chest demonstrates minimal right basilar density. Previous CABG. Endotracheal tu be 5 cm above the [place]. Nasogastric tube with tip in stomach. Right jugular central line in stable position. Osseous structures are intact. CONCLUSION: Minimal right basilar density. Status post CABG. Adequate placement of endotracheal tube. Cesar Mcfadden MD on September 15, 2016 at 14:21 Board Certified Radiologist. This report was verified electronically.
[2016-09-15] MEDS: metroNIDAZOLE 500 MG INJ 100 ML IV SCH ×2 (15:00→22:59)
--- NOTE | 2016-09-15 16:38 | PD.RAD ---
Post Procedure Progress Note Pre Procedure Diagnosis: (1) Pulmonary edema Post Procedure Diagnosis: (1) Pulmonary edema Procedure Date: Sep 15, 2016 Supervising Radiologist: Wesley Chaudhari Proceduralist/Assist: Chivo Sparks RT(R), RT Jennifer(R)() Anesthesia: Local Plan of Activity Patient to Unit: Critical Care Patient Condition: Poor See PACS Report for procedural detail/treatment Central Venous Access Device Procedure 1 Internal Jugular Central Line Placement triple lumen Wesley Chaudhari MD Sep 15, 2016 16:38
[2016-09-15] MEDS ORDERED: SODIUM CHLORIDE 0.9% FLUSH 5 ML FLUSH IVF PRN (16:45)
--- NOTE | 2016-09-15 17:06 | RADRPT ---
EXAM DATE/TIME: 09/15/2016 16:33 [facility] COMPARISON: CHEST SINGLE AP, September 15, 2016, 12:56. INDICATIONS : Evaluate for central line placement. MEDICAL HISTORY : Stroke. Cardiovascular disease Hypertension.Diabetes. SURGICAL HISTORY : CABG. ENCOUNTER: Subsequent ACUITY: 1 day PAIN SCORE: Non-responsive. LOCATION: chest FINDINGS: The cardiac silhouette is enlarged in transverse diameter. Support lines and tubes are in satisfactor y position. A right sided internal jugular vein catheter is in place without pneumothorax with its ti p in the superior vena cava. CONCLUSION: 1. Uncomplicated line placement. No evidence of pneumothorax. Wesley Chaudhari MD on September 15, 2016 at 17:04 Board Certified Radiologist. This report was verified electronically.
--- NOTE | 2016-09-15 17:19 | RADRPT ---
EXAM DATE/TIME: 09/15/2016 00:00 [facility] COMPARISON: No previous studies available for comparison. INDICATIONS : Patient is in need of a central line placement for medication administration and venous access. MEDICAL HISTORY : History of CAD, GA, CVA, CAD, DM, HTN, hyperlipidemia, angina, diverticulitis, enlarged prostate, acu te renal failure, acute respiratory failure. SURGICAL HISTORY : History of CABG, open heart surgery, cardiac stent, EGD and colonoscopy, toe amputation, right catara ct repair, nasal surgery. ENCOUNTER: Initial ACUITY: 1 week PAIN SCORE: 0/10 LOCATION: Patient is vented. ACCESS: Right internal jugular vein DEVICE(S): 1.) 7 [place] triple lumen 20 cm Arrow central line PROCEDURE : 1. Ultrasound guided venipuncture. 2. Fluoroscopic guidance. 3. Central line placement. The risks, benefits and alternatives to the procedure were explained and verbal and written consent w as obtained. The site was prepped in sterile fashion. Full sterile technique was used, including ca p, mask, sterile gloves and gown and a large sterile sheet. Hand hygiene and 2% chlorhexidine prep w as utilized per protocol for cutaneous antisepsis with appropriate dry time for site. The skin and subcutaneous tissues were infiltrated with local anesthetic solution. A suitable site a jeff the vein was selected with ultrasound and fluoroscopic guidance. A small incision was made. Th e vein was accessed under direct ultrasound visualization using the micropuncture technique. The [place] ropuncture set was exchanged for a 0.035 wire. The tract was dilated. The catheter was advanced int o position under direct fluoroscopic visualization. The catheter was fixed in place with suture and a sterile dressing was applied. The patient tolerated the procedure well and there were no complications. CONCLUSION: Uncomplicated line placement as above. Wesley Chaudhari MD on September 15, 2016 at 17:17 Board Certified Radiologist. This report was verified electronically.
--- NOTE | 2016-09-15 17:26 | RADRPT ---
EXAM DATE/TIME: 09/15/2016 17:00 [place] COMPARISON: No previous studies available for comparison. INDICATIONS : C-diff colitis. ORAL CONTRAST: No oral contrast ingested. RADIATION DOSE: 16.49 CTDIvol (mGy) MEDICAL HISTORY : Cerebrovascular disease. Cardiovascular disease Hypertension. SURGICAL HISTORY : None. ENCOUNTER: Subsequent ACUITY: 1 day PAIN SCALE: Non-responsive LOCATION: Bilateral lower quadrant TECHNIQUE: Volumetric scanning of the abdomen and pelvis was performed. Using automated exposure control and adjustment of the mA and/or kV according to patient size, radiation dose was kept as low as reasonably achievable to obtain optimal diagnostic quality images. FINDINGS: Very minimal bibasilar parenchymal changes are noted worse on the right than the left. The heart is enlarged. Pulmonary vascularity is normal. The liver is free of focal defects. The stomach is prominent. Spleen and pancreas are unremarkable. Large 6 cm cyst is seen about the r ight kidney. Left kidney is unremarkable. Extensive vascular calcifications are noted. There is good visualization of the colon from cecum to pelvis. I do not see an significant bowel wall thickening to suggest a significant colitis. There is air-fluid level in the sigmoid colon. Bladde r is decompressed by a Guillen. Abdominal wall is intact. CONCLUSION: 1. Gaseous distension of the stomach. 2. I do not see evidence for significant colitis. Lowell Gonzalez MD FACR on September 15, 2016 at 17:12 Board Certified Radiologist. This report was verified electronically.
--- NOTE | 2016-09-15 17:35 | PD.CARD.PN ---
Subjective Subjective Remarks Confused, aphasic Objective Medications Current Medications Medications (Trade) Dose Ordered Sig/Eric Route Start Time Stop Time Status Last Admin (Ecotrin Ec) 81 mg DAILY PO 09/08/16 09:00 09/15/16 08:11 (Lipitor) 40 mg HS PO 09/07/16 21:30 09/14/16 20:27 (Plavix) 75 mg DAILY PO 09/08/16 09:00 09/15/16 08:11 (Imdur) 60 mg DAILY@07 PO 09/08/16 07:00 09/14/16 04:48 (NS Flush) 2 ml UNSCH PRN IV FLUSH 09/07/16 21:30 09/14/16 23:58 (NS Flush) 2 ml BID IV FLUSH 09/08/16 09:00 09/15/16 08:12 (Tylenol) 650 mg Q6H PRN PO 09/07/16 21:30 09/14/16 23:57 (Morphine Inj) 2 mg Q2H PRN IV 09/07/16 21:30 09/14/16 23:57 (Ativan Inj) 0.5 mg Q2HR PRN IV 09/07/16 21:30 09/14/16 23:57 (Zofran Inj) 4 mg Q6H PRN IV 09/07/16 21:30 09/08/16 22:00 (Reglan Inj) 5 mg Q6H PRN IV 09/07/16 21:30 Miscellaneous Information 1 Q361D XX 09/07/16 21:30 (Chlorhexidine 2% Cloth) Taper DAILY@04 TOP 09/08/16 04:00 09/04/17 03:59 09/13/16 04:00 (Chlorhexidine 2% Cloth) 3 pack UNSCH PRN TOP 09/07/16 21:30 (Apresoline Inj) 20 mg Q4H PRN IV PUSH 09/08/16 04:30 09/13/16 21:29 (D50w (Vial) Inj) 25 ml UNSCH PRN IV PUSH 09/08/16 12:45 (Glucagon Inj) 1 mg UNSCH PRN OTHER 09/08/16 12:45 (NovoLIN R SUPPLEMENTAL SCALE) 1 Q4H SQ 09/08/16 13:00 09/14/16 23:58 (Lopressor) 50 mg Q8H PO 09/09/16 14:00 09/14/16 20:56 (Heparin Inj) 5,000 units Q12HR SQ 09/09/16 09:00 09/15/16 08:11 (Lacrilube Opht Oint) 1 applic BID EACH EYE 09/09/16 21:00 09/15/16 08:12 (Peridex 0.12% Liq) 15 ml BID@08,20 MT 09/10/16 20:00 09/14/16 20:57 Docusate Sodium 100 mg 100 mg BID PO 09/11/16 10:00 09/15/16 08:11 (NS 1000 ml Inj) 1,000 ml @ 5 mls/hr Q24H IV 09/13/16 11:00 09/15/16 09:07 Pantoprazole Sodium 40 mg 40 mg Q12H IV PUSH 09/13/16 20:00 09/15/16 08:11 (NS 1000 ml Inj) 1,000 ml @ 0 mls/hr Q0M PRN IV 09/14/16 10:48 09/15/16 05:33 Heparin Sodium (Porcine) 8000 units 8,000 units UNSCH PRN IVF 09/14/16 11:00 Sodium Chloride 1,000 ml @ 200 mls/hr Q5H PRN IV 09/14/16 10:48 09/15/16 05:33 (NS 1000 ml Inj) 1,000 ml @ 0 mls/hr Q0M PRN IV 09/14/16 10:48 (Mannitol Inj) 12.5 gm UNSCH PRN IV 09/14/16 11:00 09/15/16 05:33 (Albumin 25% Inj) 25 gm UNSCH PRN IV 09/14/16 11:00 09/15/16 05:34 (NS Flush) 5 ml UNSCH PRN IVF 09/14/16 11:00 09/14/16 16:35 (Heparin Inj) UNSCH PRN .XX 09/14/16 11:00 09/14/16 16:37 (Gentamicin (Dialysis) Inj) 20 mg UNSCH PRN IV 09/14/16 11:00 09/14/16 16:36 (Zofran Inj) 4 mg UNSCH PRN IV 09/14/16 11:00 (Tylenol) 650 mg UNSCH PRN PO 09/14/16 11:00 (Benadryl) 25 mg UNSCH PRN PO 09/14/16 11:00 (Nitrostat Sl) 0.4 mg UNSCH PRN SL 09/14/16 11:00 (Catapres) 0.1 mg UNSCH PRN PO 09/14/16 11:00 (Gelfoam 12 Mm/7 Mm Top) 1 foam UNSCH PRN TOP 09/14/16 11:00 (NS Flush) UNSCH PRN IVF 09/14/16 16:00 Heparin Sodium (Porcine) UNSCH PRN IVF 09/14/16 16:00 Amiodarone HCl 450 mg/Dextrose 250 ml @ 0 mls/hr CONTINUOUS IV 09/15/16 01:15 (Neosynephrine Inj/D5W 500 ml Inj) 500 ml @ 0 mls/hr TITRATE IV 09/15/16 10:00 Terbutaline Sulfate 1 mg 1 mg UNSCH PRN SQ 09/15/16 09:00 Propofol 100 ml @ 0 mls/hr TITRATE IV 09/15/16 13:45 (Flagyl 500 Mg Inj) 100 ml @ 100 mls/hr Q8H IV 09/15/16 15:00 (VANCOMYCIN for oral use only) 125 mg QID PO 09/15/16 18:00 (NS Flush) DAILY IVF 09/16/16 09:00 (NS Flush) UNSCH PRN IVF 09/15/16 16:45 Vital Signs / I&O Vital Signs Date Time Temp Pulse Resp B/P Pulse Ox O2 Delivery O2 Flow Rate FiO2 09/15/16 15:38 100 40 09/15/16 14:00 92 09/15/16 12:54 98 50 09/15/16 12:00 108 09/15/16 12:00 100.7 108 40 122/72 99 09/15/16 12:00 99 Bi-Pap 09/15/16 11:41 98 40 09/15/16 10:00 102 09/15/16 08:00 104 09/15/16 08:00 100.1 104 31 103/69 100 09/15/16 08:00 99 Bi-Pap 09/15/16 07:22 100 25 09/15/16 06:00 109 09/15/16 04:01 97 40 09/15/16 04:00 143 09/15/16 04:00 99 Bi-Pap 09/15/16 04:00 98.3 131 41 138/88 99 09/15/16 02:00 143 09/15/16 01:06 96 40 09/15/16 00:00 102.0 143 20 123/82 96 09/15/16 00:00 137 09/15/16 00:00 96 Nasal Cannula 4.00 09/14/16 22:05 98 40 09/14/16 22:00 135 09/14/16 20:45 98 40 09/14/16 20:00 99.2 129 29 126/65 100 09/14/16 20:00 100 Nasal Cannula 4.00 09/14/16 20:00 129 09/14/16 19:39 97 Nasal Cannula 4.00 09/14/16 18:00 122 I/O 09/14/16 09/14/16 09/14/16 09/15/16 09/15/16 09/15/16 07:00 15:00 23:00 07:00 15:00 23:00 Intake Total 325 ml 932 ml 339 ml 537 ml 1842 ml Output Total 150 ml 500 ml 2150 ml 30 ml 660 ml Balance 175 ml 432 ml -1811 ml 507 ml 1182 ml IV Total 325 ml 766 ml 54 ml 237 ml 1842 ml Tube Feeding 166 ml 185 ml Other 100 ml 300 ml Output Urine Total 150 ml 500 ml 150 ml 30 ml 10 ml Gastric Drainage Total 150 ml Hemodialysis 2000 ml 500 ml # Bowel Movements 0 0 0 1 Physical Exam GENERAL: In NAD, in dialysis SKIN: Warm and dry. HEAD: Normocephalic. Facial asymetry. EYES: No scleral icterus. No injection or drainage. NECK: Supple, trachea midline. No JVD or lymphadenopathy. CARDIOVASCULAR: Regular rate and rhythm without murmurs, gallops, or rubs. RESPIRATORY: Breath sounds equal bilaterally. No accessory muscle use. GASTROINTESTINAL: Abdomen soft, non-tender, nondistended, obese MUSCULOSKELETAL: No cyanosis, or edema. Groins stable. NEURO: aphasic Laboratory Laboratory Tests Test 09/14/16 09/15/16 09/15/16 09/15/16 21:20 04:05 09:55 13:45 Blood Gas Puncture Site RT RADIAL LT RADIAL Blood Gas Patient Temperature 98.6 98.6 Blood Gas HCO3 24 mmol/L 21 mmol/L Blood Gas Base Excess -0.5 mmol/L -3.5 mmol/L Blood Gas Oxygen Saturation 95 % 97 % Arterial Blood pH 7.39 7.39 Arterial Blood Partial 40 mmHg 35 mmHg Pressure CO2 Arterial Blood Partial 103 mmHg 175 mmHg Pressure O2 Arterial Blood Oxygen Content 19.4 Vol % 16.8 Vol % Arterial Blood 1.3 % 1.2 % Carboxyhemoglobin Arterial Blood Methemoglobin 1.2 % 1.5 % Blood Gas Hemoglobin 14.5 G/DL 12.1 G/DL Oxygen Delivery Device BIPAP10/5/40% VENTILATOR Blood Gas Inspired Oxygen 40 % 50 % White Blood Count 19.6 TH/MM3 Red Blood Count 4.52 MIL/MM3 Hemoglobin 13.6 GM/DL Hematocrit 41.6 % Mean Corpuscular Volume 92.1 FL Mean Corpuscular Hemoglobin 30.1 PG Mean Corpuscular Hemoglobin 32.7 % Concent Red Cell Distribution Width 15.5 % Platelet Count 365 TH/MM3 Mean Platelet Volume 8.9 FL Neutrophils (%) (Auto) 78.7 % Lymphocytes (%) (Auto) 4.1 % Monocytes (%) (Auto) 16.5 % Eosinophils (%) (Auto) 0.6 % Basophils (%) (Auto) 0.1 % Neutrophils # (Auto) 15.4 TH/MM3 Lymphocytes # (Auto) 0.8 TH/MM3 Monocytes # (Auto) 3.2 TH/MM3 Eosinophils # (Auto) 0.1 TH/MM3 Basophils # (Auto) 0.0 TH/MM3 CBC Comment AUTO DIFF Differential Comment AUTO DIFF CONFIRMED Platelet Estimate NORMAL Platelet Morphology Comment NORMAL Prothrombin Time 14.2 SEC Prothromb Time International 1.3 RATIO Ratio Sodium Level 142 MEQ/L Potassium Level 4.6 MEQ/L Chloride Level 98 MEQ/L Carbon Dioxide Level 26.6 MEQ/L Anion Gap 17 MEQ/L Blood Urea Nitrogen 84 MG/DL Creatinine 8.94 MG/DL Estimat Glomerular Filtration 6 ML/MIN Rate Random Glucose 273 MG/DL Calcium Level 9.3 MG/DL Phosphorus Level 5.7 MG/DL Stool C. difficile Toxin (PCR) POSITIVE Stl C. difficile Toxin PRESUMPTIVE Epiderm 027 NEGATIVE Blood Gas Ventilator Setting PRVC/AC Imaging Last Impressions Chest X-Ray 09/15/16 1621 Signed Impressions: Service Date/Time: Thursday, September 15, 2016 16:33 - CONCLUSION: 1. Uncomplicated line placement. No evidence of pneumothorax. Wesley Chaudhari MD Head CT 09/15/16 0000 Signed Impressions: Service Date/Time: Thursday, September 15, 2016 10:15 - CONCLUSION: 1. Sizable area of decreased attenuation in the left MCA distribution most consistent with subacute cortical infarct. This there is stable compared to previous MR dated 09/09/16. Sanket Gonzalez MD Catheter Placement X-Ray 09/14/16 0000 Signed Impressions: Service Date/Time: Wednesday, September 14, 2016 00:00 - CONCLUSION: Uncomplicated line placement as above. Wesley Chaudhari MD Carotid Artery Ultrasound 09/13/16 0000 Signed Impressions: Service Date/Time: Tuesday, September 13, 2016 16:46 - CONCLUSION: Significant plaque remains evident in the carotid bifurcations. Poor visualization and difficulty velocity sampling of the proximal internal carotid arteries was again encountered. Significant carotid stenosis cannot be excluded. Nonvisualization of the vertebral arteries. Mack Brizuela MD Brain MRI 09/09/16 0000 Signed Impressions: Service Date/Time: August 16:36 - CONCLUSION: 1. Findings demonstrate an acute infarction in the left sylvian region, nonhemorrhagic. 2. Small air-fluid level right maxillary sinus and mild bilateral ethmoid sinus disease. Suresh Diaz MD Renal Ultrasound 09/08/16 0000 Signed Impressions: Service Date/Time: Thursday, September 08, 2016 16:04 - CONCLUSION: Large 6.3 cm cyst lower pole laterally left kidney. No evidence of hydronephrosis or obstructive uropathy.. Christian Cooper MD Assessment and Plan Problem List: (1) Unstable angina (2) CAD (coronary artery disease) of bypass graft (3) CHF (congestive heart failure), NYHA class II (4) Cardiomyopathy, ischemic (5) Chronic kidney disease (6) Suspected cerebrovascular accident (7) Abnormal nuclear stress test Assessment and Plan Continue ICU monitoring. Continue Plavix and ASA per NG to prevent stent thrombosis. BP controlled. Neurology evaluation and management for CVA confirmed by MRI. No evidence of ICH on today's head CT. Groins remain stable. Renal fx worse, now on dialysis. MS not improving, likely multifactorial. Problem Qualifiers (1) Chronic kidney disease: Qualified Code: N18.4 - Chronic kidney disease, stage 4 (severe) Martha Cummins MD Sep 15, 2016 17:35
--- NOTE | 2016-09-15 17:49 | PD.ID.CON ---
History of Present Illness Service Infectious disease Consult Requested By Dr. Urena Reason for Consult Evaluation and management of septic shock, possible C. difficile colitis Primary Care Physician Annette Salcedo MD Diagnoses: History of Present Illness Mr. Ferguson is a 66 y/o male with a medical history of CAD status post 6 vessel CABG in 2011, CHF, CAD, hypertension, diabetes mellitus type 2, obesity, and sleep apnea. On 09/07/16, patient underwent cardiac catheterization , he was found to have significant blockage requiring angioplasty and stenting. Post cardiac catheter, patient developed aphasia and right sided hemiparesis. CT of the brain show no acute process. Neurology -Dr. Nguyen consulted. Brain MRI obtained on 09/09/16 showing acute nonhemorrhagic infarction in the left sylvian region. Patient developed respiratory distress and was placed on BiPAP , subsequently intubated and placed on mechanical ventilation. Patient with history of stage III CKD, his potassium increased up to 6.1 and was treated medically. On 09/08/2016 patient had a urine culture done which showed E.faecalis and other cultures were negative. Patient was started on empiric Zosyn IV as well as Levaquin for possible aspiration pneumonitis coverage. Due to a change in mentation patient was transferred to critical care on September 10, 2016 patient was intubated secondary to worsening respiratory failure, hypoxia and altered mental status. Patient was subsequently extubated on 09/11/2016 but continued to be aphasic and not following any commands. Nephrology -Dr. Naidu on board and patient is currently on hemodialysis due to worsening renal function. Palliative care was consulted for further clarifications of goals of care given patient's clinical status and poor prognosis for an improved quality of life. Due to worsening leukocytosis, liquid watery stools stool for C. difficile was sent and is positive. Chest x-ray was done today at negative. UA no growth at [address] abdomen pelvis done with no evidence of colitis or ileus. Upon discussion with RN it appears that patient has not been tolerating his tube feeds. Infectious disease is consulted for evaluation and management of septic shock possible C. difficile colitis. Review of Systems ROS Limitations: Intubated Past Family Social History Allergies: Coded Allergies: No Known Allergies (Verified , 09/07/16) Past Medical History CAD status post 6 vessel CABG in December 2011 CHF Hypertension CKD Gout Diabetes mellitus 2 Dyslipidemia Neuropathic diabetes Morbid obesity Sleep apnea Depression Hyperlipidemia Osteoarthritis Past Surgical History Cardiac cath with angioplasty and stent placement in August 2016 6 vessel CABG in December 2011 Cardiac catheter in 2000 with stent placement x10 Bilateral knee replacement, right 1997 and left in 1999 Colonoscopy in 2015 Endoscopy in 2015 Right fifth toe amputation in 2012 Reported Medications Reported Meds & Active Scripts Active Oxycodone-Acetaminophen 10-325 mg Tab 1 Tab PO Q6H PRN May fill 08/27/16 Nitroglycerin SL (Nitroglycerin) 0.4 Mg Subl 0.4 Mg SL DIRECTED PRN 1 TAB UNDER TONGUE FOR CHEST PAIN, MAY REPEAT EVERY FIVE MINUTES FOR TOTAL OF 3 DOSES. CALL 911 IF NO RELIEF Humalog Inj (Insulin Human Lispro) 1,000 Unit/10 Ml Vial 40 Units SQ TIDAC Metoprolol Tartrate 50 Mg Tab 50 Mg PO BID Lantus Inj (Insulin Glargine) 1,000 Unit/10 Ml Vial 80 Units SQ HS Reported Clopidogrel (Clopidogrel Bisulfate) 75 Mg Tab 75 Mg PO DAILY Tamsulosin (Tamsulosin HCl) 0.4 Mg Cap 0.4 Mg PO HS Isosorbide Mononitrate ER (Isosorbide Mononitrate) 60 Mg Tab 60 Mg PO DAILY Aspirin 81 Mg Tabdr 81 Mg PO DAILY Nortriptyline (Nortriptyline HCl) 25 Mg Cap 25 Mg PO HS Gabapentin 800 Mg Tab 800 Mg PO TID Lipitor (Atorvastatin Calcium) 40 Mg Tab 40 Mg PO HS Active Ordered Medications Current Medications Medications (Trade) Dose Ordered Sig/Eric Route Start Time Stop Time Status Last Admin (Ecotrin Ec) 81 mg DAILY PO 09/08/16 09:00 09/15/16 08:11 (Lipitor) 40 mg HS PO 09/07/16 21:30 09/14/16 20:27 (Plavix) 75 mg DAILY PO 09/08/16 09:00 09/15/16 08:11 (Imdur) 60 mg DAILY@07 PO 09/08/16 07:00 09/14/16 04:48 (NS Flush) 2 ml UNSCH PRN IV FLUSH 09/07/16 21:30 09/14/16 23:58 (NS Flush) 2 ml BID IV FLUSH 09/08/16 09:00 09/15/16 08:12 (Tylenol) 650 mg Q6H PRN PO 09/07/16 21:30 09/14/16 23:57 (Morphine Inj) 2 mg Q2H PRN IV 09/07/16 21:30 09/14/16 23:57 (Ativan Inj) 0.5 mg Q2HR PRN IV 09/07/16 21:30 09/14/16 23:57 (Zofran Inj) 4 mg Q6H PRN IV 09/07/16 21:30 09/08/16 22:00 (Reglan Inj) 5 mg Q6H PRN IV 09/07/16 21:30 Miscellaneous Information 1 Q361D XX 09/07/16 21:30 (Chlorhexidine 2% Cloth) Taper DAILY@04 TOP 09/08/16 04:00 09/04/17 03:59 09/13/16 04:00 (Chlorhexidine 2% Cloth) 3 pack UNSCH PRN TOP 09/07/16 21:30 (Apresoline Inj) 20 mg Q4H PRN IV PUSH 09/08/16 04:30 09/13/16 21:29 (D50w (Vial) Inj) 25 ml UNSCH PRN IV PUSH 09/08/16 12:45 (Glucagon Inj) 1 mg UNSCH PRN OTHER 09/08/16 12:45 (NovoLIN R SUPPLEMENTAL SCALE) 1 Q4H SQ 09/08/16 13:00 09/14/16 23:58 (Lopressor) 50 mg Q8H PO 09/09/16 14:00 09/14/16 20:56 (Heparin Inj) 5,000 units Q12HR SQ 09/09/16 09:00 09/15/16 08:11 (Lacrilube Opht Oint) 1 applic BID EACH EYE 09/09/16 21:00 09/15/16 08:12 (Peridex 0.12% Liq) 15 ml BID@08,20 MT 09/10/16 20:00 09/14/16 20:57 Docusate Sodium 100 mg 100 mg BID PO 09/11/16 10:00 09/15/16 08:11 (NS 1000 ml Inj) 1,000 ml @ 5 mls/hr Q24H IV 09/13/16 11:00 09/15/16 09:07 Pantoprazole Sodium 40 mg 40 mg Q12H IV PUSH 09/13/16 20:00 09/15/16 08:11 (NS 1000 ml Inj) 1,000 ml @ 0 mls/hr Q0M PRN IV 09/14/16 10:48 09/15/16 05:33 Heparin Sodium (Porcine) 8000 units 8,000 units UNSCH PRN IVF 09/14/16 11:00 Sodium Chloride 1,000 ml @ 200 mls/hr Q5H PRN IV 09/14/16 10:48 09/15/16 05:33 (NS 1000 ml Inj) 1,000 ml @ 0 mls/hr Q0M PRN IV 09/14/16 10:48 (Mannitol Inj) 12.5 gm UNSCH PRN IV 09/14/16 11:00 09/15/16 05:33 (Albumin 25% Inj) 25 gm UNSCH PRN IV 09/14/16 11:00 09/15/16 05:34 (NS Flush) 5 ml UNSCH PRN IVF 09/14/16 11:00 09/14/16 16:35 (Heparin Inj) UNSCH PRN .XX 09/14/16 11:00 09/14/16 16:37 (Gentamicin (Dialysis) Inj) 20 mg UNSCH PRN IV 09/14/16 11:00 09/14/16 16:36 (Zofran Inj) 4 mg UNSCH PRN IV 09/14/16 11:00 (Tylenol) 650 mg UNSCH PRN PO 09/14/16 11:00 (Benadryl) 25 mg UNSCH PRN PO 09/14/16 11:00 (Nitrostat Sl) 0.4 mg UNSCH PRN SL 09/14/16 11:00 (Catapres) 0.1 mg UNSCH PRN PO 09/14/16 11:00 (Gelfoam 12 Mm/7 Mm Top) 1 foam UNSCH PRN TOP 09/14/16 11:00 (NS Flush) UNSCH PRN IVF 09/14/16 16:00 Heparin Sodium (Porcine) UNSCH PRN IVF 09/14/16 16:00 Amiodarone HCl 450 mg/Dextrose 250 ml @ 0 mls/hr CONTINUOUS IV 09/15/16 01:15 (Neosynephrine Inj/D5W 500 ml Inj) 500 ml @ 0 mls/hr TITRATE IV 09/15/16 10:00 Terbutaline Sulfate 1 mg 1 mg UNSCH PRN SQ 09/15/16 09:00 Propofol 100 ml @ 0 mls/hr TITRATE IV 09/15/16 13:45 (Flagyl 500 Mg Inj) 100 ml @ 100 mls/hr Q8H IV 09/15/16 15:00 (VANCOMYCIN for oral use only) 125 mg QID PO 09/15/16 18:00 (NS Flush) DAILY IVF 09/16/16 09:00 (NS Flush) UNSCH PRN IVF 09/15/16 16:45 Family History Could not be obtained. Social History Has 3 sons. Rest of the details could not be obtained. No known history of alcohol, smoking or intravenous drugs. Physical Exam Vital Signs Vital Signs Date Time Temp Pulse Resp B/P Pulse Ox O2 Delivery O2 Flow Rate FiO2 09/15/16 15:38 100 40 09/15/16 14:00 92 09/15/16 12:54 98 50 09/15/16 12:00 108 09/15/16 12:00 100.7 108 40 122/72 99 09/15/16 12:00 99 Bi-Pap 09/15/16 11:41 98 40 09/15/16 10:00 102 09/15/16 08:00 104 09/15/16 08:00 100.1 104 31 103/69 100 09/15/16 08:00 99 Bi-Pap 09/15/16 07:22 100 25 09/15/16 06:00 109 09/15/16 04:01 97 40 09/15/16 04:00 143 09/15/16 04:00 99 Bi-Pap 09/15/16 04:00 98.3 131 41 138/88 99 09/15/16 02:00 143 09/15/16 01:06 96 40 09/15/16 00:00 102.0 143 20 123/82 96 09/15/16 00:00 137 09/15/16 00:00 96 Nasal Cannula 4.00 09/14/16 22:05 98 40 09/14/16 22:00 135 09/14/16 20:45 98 40 09/14/16 20:00 99.2 129 29 126/65 100 09/14/16 20:00 100 Nasal Cannula 4.00 09/14/16 20:00 129 09/14/16 19:39 97 Nasal Cannula 4.00 09/14/16 18:00 122 Physical Exam GENERAL: Obese male patient, in no apparent distress. SKIN: No rashes, ecchymoses or lesions. Cool and dry. HEAD: Atraumatic. Normocephalic. No temporal or scalp tenderness. EYES: Pupils equal round and reactive. Extraocular motions intact. No scleral icterus. No injection or drainage. ENT: Intubated. Throat without erythema, tonsillar hypertrophy or exudate. Uvula midline. Airway patent. NECK: Trachea midline. Supple, nontender, no meningeal signs. CARDIOVASCULAR: Heart sounds audible. RESPIRATORY: Clear to auscultation. Breath sounds equal bilaterally. GASTROINTESTINAL: Abdomen soft, non-tender, nondistended. MUSCULOSKELETAL: Extremities without clubbing, cyanosis, or edema. NEUROLOGICAL: Not on any sedation but unresponsive. Not moving any extremities for me. No response to deep painful stimuli. Psych did not be assessed IV line sites with no evidence of infection. Laboratory Laboratory Tests Test 09/14/16 09/15/16 09/15/16 09/15/16 21:20 04:05 09:55 13:45 Blood Gas Puncture Site RT RADIAL LT RADIAL Blood Gas Patient Temperature 98.6 98.6 Blood Gas HCO3 24 21 Blood Gas Base Excess -0.5 -3.5 Blood Gas Oxygen Saturation 95 97 Arterial Blood pH 7.39 7.39 Arterial Blood Partial 40 35 Pressure CO2 Arterial Blood Partial 103 175 Pressure O2 Arterial Blood Oxygen Content 19.4 16.8 Arterial Blood 1.3 1.2 Carboxyhemoglobin Arterial Blood Methemoglobin 1.2 1.5 Blood Gas Hemoglobin 14.5 12.1 Oxygen Delivery Device BIPAP10/5/40% VENTILATOR Blood Gas Inspired Oxygen 40 50 White Blood Count 19.6 Red Blood Count 4.52 Hemoglobin 13.6 Hematocrit 41.6 Mean Corpuscular Volume 92.1 Mean Corpuscular Hemoglobin 30.1 Mean Corpuscular Hemoglobin 32.7 Concent Red Cell Distribution Width 15.5 Platelet Count 365 Mean Platelet Volume 8.9 Neutrophils (%) (Auto) 78.7 Lymphocytes (%) (Auto) 4.1 Monocytes (%) (Auto) 16.5 Eosinophils (%) (Auto) 0.6 Basophils (%) (Auto) 0.1 Neutrophils # (Auto) 15.4 Lymphocytes # (Auto) 0.8 Monocytes # (Auto) 3.2 Eosinophils # (Auto) 0.1 Basophils # (Auto) 0.0 CBC Comment AUTO DIFF Differential Comment AUTO DIFF CONFIRMED Platelet Estimate NORMAL Platelet Morphology Comment NORMAL Prothrombin Time 14.2 Prothromb Time International 1.3 Ratio Sodium Level 142 Potassium Level 4.6 Chloride Level 98 Carbon Dioxide Level 26.6 Anion Gap 17 Blood Urea Nitrogen 84 Creatinine 8.94 Estimat Glomerular Filtration 6 Rate Random Glucose 273 Calcium Level 9.3 Phosphorus Level 5.7 Stool C. difficile Toxin (PCR) POSITIVE Stl C. difficile Toxin PRESUMPTIVE Epiderm 027 NEGATIVE Blood Gas Ventilator Setting PRVC/AC Date/Time Procedure Status Source Growth 09/14/16 11:01 Aerobic Blood Culture - Preliminary Resulted Blood Peripheral NO GROWTH IN 1 DAY 09/14/16 11:01 Anaerobic Blood Culture - Preliminary Resulted Blood Peripheral NO GROWTH IN 1 DAY 09/14/16 08:45 Urine Culture - Preliminary Resulted Urine Catheterized Urine NO GROWTH IN 24 HOURS. Result Diagram: 09/15/16 0405 09/15/16 0405 Imaging Last Impressions Chest X-Ray 09/15/16 1621 Signed Impressions: Service Date/Time: Thursday, September 15, 2016 16:33 - CONCLUSION: 1. Uncomplicated line placement. No evidence of pneumothorax. Wesley Chaudhari MD Head CT 09/15/16 0000 Signed Impressions: Service Date/Time: Thursday, September 15, 2016 10:15 - CONCLUSION: 1. Sizable area of decreased attenuation in the left MCA distribution most consistent with subacute cortical infarct. This there is stable compared to previous MR dated 09/09/16. Sanket Gonzalez MD Central Venous Line 09/15/16 0000 Signed Impressions: Service Date/Time: Thursday, September 15, 2016 00:00 - CONCLUSION: Uncomplicated line placement as above. Wesley Chaudhari MD Abdomen/Pelvis CT 09/15/16 0000 Signed Impressions: Service Date/Time: Thursday, September 15, 2016 17:00 - CONCLUSION: 1. Gaseous distension of the stomach. 2. I do not see evidence for significant colitis. Lowell Gonzalez MD FACR Catheter Placement X-Ray 09/14/16 0000 Signed Impressions: Service Date/Time: Wednesday, September 14, 2016 00:00 - CONCLUSION: Uncomplicated line placement as above. Wesley Chaudhari MD Carotid Artery Ultrasound 09/13/16 0000 Signed Impressions: Service Date/Time: Tuesday, September 13, 2016 16:46 - CONCLUSION: Significant plaque remains evident in the carotid bifurcations. Poor visualization and difficulty velocity sampling of the proximal internal carotid arteries was again encountered. Significant carotid stenosis cannot be excluded. Nonvisualization of the vertebral arteries. Mack Brizuela MD Brain MRI 09/09/16 0000 Signed Impressions: Service Date/Time: August 16:36 - CONCLUSION: 1. Findings demonstrate an acute infarction in the left sylvian region, nonhemorrhagic. 2. Small air-fluid level right maxillary sinus and mild bilateral ethmoid sinus disease. Suresh Diaz MD Renal Ultrasound 09/08/16 0000 Signed Impressions: Service Date/Time: Thursday, September 08, 2016 16:04 - CONCLUSION: Large 6.3 cm cyst lower pole laterally left kidney. No evidence of hydronephrosis or obstructive uropathy.. Christian Cooper MD Assessment and Plan Assessment and Plan Septic shock with multiorgan dysfunction syndrome Cl diff colitis (CT can have no evidence in initial stages of Cdiff Colitis) Other sourceslooked at: CXR negative, UA no growth at 24 hrs, Central line infection but blood cultures negative Ileus vs Gaseous distention of stomach: impedes delivery and absorption of oral vanco. Acute resp failure on vent. Acute metabolic encephalopathy: stroke, sepsis, metabolic. Acute renal failure: meds, sepsis, ATN on HD now. CAD, [place] Acute stroke Recs Patient recd vanco IV in am. Zosyn IV and levaquin stopped this am as source suspected to be Cdiff Colitis. Continue Vanco oral for Cdiff Continue Flagyl IV for Cdiff Start Micafungin IV Start Meropenem IV (ASP: worsening sepsis on Zosyn IV) Follow cultures Follow clinically nura Brush. Era Becker MD Sep 15, 2016 17:49 Era Becker MD Sep 15, 2016 17:49
[2016-09-15] MEDS: VANCOMYCIN 500 MG VIAL (FOR ORAL USE ONLY) PO SCH ×2 (18:00→21:05)
[2016-09-15] MEDS ORDERED: ASP: Other exception documentation: ( ) XX PRN (18:30)
[2016-09-15] MEDS ORDERED: MISCELLANEOUS PHARMACY INFORMATION XX PRN (18:30)
[2016-09-15] MEDS: MEROPENEM INJ 500 MG in SODIUM CHLORIDE 0.9% INJ 100 ML IV SCH (20:43)
[2016-09-15] MEDS: ATORVASTATIN 40 MG TAB PO SCH (21:04)
[2016-09-15] MEDS: MICAFUNGIN INJ 150 MG in SODIUM CHLORIDE 0.9% INJ 100 ML IV SCH (21:05)
--- NOTE | 2016-09-15 21:30 | HHI.GIFU ---
Subjective Remarks Patient intubated unresponsive septic hypotensive requiring vasopressors Objective Vitals I&O Vital Signs Date Time Temp Pulse Resp B/P Pulse Ox O2 Delivery O2 Flow Rate FiO2 09/15/16 20:17 100 40 09/15/16 18:00 92 09/15/16 17:30 100 100 09/15/16 16:00 99.6 108 24 128/64 99 09/15/16 16:00 98 Mechanical Ventilator 09/15/16 16:00 89 09/15/16 15:38 100 40 09/15/16 14:00 92 09/15/16 12:54 98 50 09/15/16 12:00 108 09/15/16 12:00 100.7 108 40 122/72 99 09/15/16 12:00 99 Bi-Pap 09/15/16 11:41 98 40 09/15/16 10:00 102 09/15/16 08:00 104 09/15/16 08:00 100.1 104 31 103/69 100 09/15/16 08:00 99 Bi-Pap 09/15/16 07:22 100 25 09/15/16 06:00 109 09/15/16 04:01 97 40 09/15/16 04:00 143 09/15/16 04:00 99 Bi-Pap 09/15/16 04:00 98.3 131 41 138/88 99 09/15/16 02:00 143 09/15/16 01:06 96 40 09/15/16 00:00 102.0 143 20 123/82 96 09/15/16 00:00 137 09/15/16 00:00 96 Nasal Cannula 4.00 09/14/16 22:05 98 40 09/14/16 22:00 135 I/O 09/14/16 09/14/16 09/14/16 09/15/16 09/15/16 09/15/16 07:00 15:00 23:00 07:00 15:00 23:00 Intake Total 325 ml 932 ml 339 ml 537 ml 1842 ml Output Total 150 ml 500 ml 2150 ml 30 ml 660 ml Balance 175 ml 432 ml -1811 ml 507 ml 1182 ml IV Total 325 ml 766 ml 54 ml 237 ml 1842 ml Tube Feeding 166 ml 185 ml Other 100 ml 300 ml Output Urine Total 150 ml 500 ml 150 ml 30 ml 10 ml Gastric Drainage Total 150 ml Hemodialysis 2000 ml 500 ml # Bowel Movements 0 0 0 1 Laboratory Laboratory Tests Test 09/15/16 09/15/16 09/15/16 04:05 09:55 13:45 White Blood Count 19.6 Red Blood Count 4.52 Hemoglobin 13.6 Hematocrit 41.6 Mean Corpuscular Volume 92.1 Mean Corpuscular Hemoglobin 30.1 Mean Corpuscular Hemoglobin 32.7 Concent Red Cell Distribution Width 15.5 Platelet Count 365 Mean Platelet Volume 8.9 Neutrophils (%) (Auto) 78.7 Lymphocytes (%) (Auto) 4.1 Monocytes (%) (Auto) 16.5 Eosinophils (%) (Auto) 0.6 Basophils (%) (Auto) 0.1 Neutrophils # (Auto) 15.4 Lymphocytes # (Auto) 0.8 Monocytes # (Auto) 3.2 Eosinophils # (Auto) 0.1 Basophils # (Auto) 0.0 CBC Comment AUTO DIFF Differential Comment AUTO DIFF CONFIRMED Platelet Estimate NORMAL Platelet Morphology Comment NORMAL Prothrombin Time 14.2 Prothromb Time International 1.3 Ratio Sodium Level 142 Potassium Level 4.6 Chloride Level 98 Carbon Dioxide Level 26.6 Anion Gap 17 Blood Urea Nitrogen 84 Creatinine 8.94 Estimat Glomerular Filtration 6 Rate Random Glucose 273 Calcium Level 9.3 Phosphorus Level 5.7 Stool C. difficile Toxin (PCR) POSITIVE Stl C. difficile Toxin PRESUMPTIVE Epiderm 027 NEGATIVE Blood Gas Puncture Site LT RADIAL Blood Gas Patient Temperature 98.6 Blood Gas HCO3 21 Blood Gas Base Excess -3.5 Blood Gas Oxygen Saturation 97 Arterial Blood pH 7.39 Arterial Blood Partial 35 Pressure CO2 Arterial Blood Partial 175 Pressure O2 Arterial Blood Oxygen Content 16.8 Arterial Blood 1.2 Carboxyhemoglobin Arterial Blood Methemoglobin 1.5 Blood Gas Hemoglobin 12.1 Oxygen Delivery Device VENTILATOR Blood Gas Ventilator Setting PRVC/AC Blood Gas Inspired Oxygen 50 Date/Time Procedure Status Source Growth 09/14/16 11:01 Aerobic Blood Culture - Preliminary Resulted Blood Peripheral NO GROWTH IN 1 DAY 09/14/16 11:01 Anaerobic Blood Culture - Preliminary Resulted Blood Peripheral NO GROWTH IN 1 DAY 09/14/16 08:45 Urine Culture - Preliminary Resulted Urine Catheterized Urine NO GROWTH IN 24 HOURS. Imaging Last Impressions Chest X-Ray 09/15/16 1621 Signed Impressions: Service Date/Time: Thursday, September 15, 2016 16:33 - CONCLUSION: 1. Uncomplicated line placement. No evidence of pneumothorax. Wesley Chaudhari MD Head CT 09/15/16 0000 Signed Impressions: Service Date/Time: Thursday, September 15, 2016 10:15 - CONCLUSION: 1. Sizable area of decreased attenuation in the left MCA distribution most consistent with subacute cortical infarct. This there is stable compared to previous MR dated 09/09/16. Sanket Gonzalez MD Central Venous Line 09/15/16 0000 Signed Impressions: Service Date/Time: Thursday, September 15, 2016 00:00 - CONCLUSION: Uncomplicated line placement as above. Wesley Chaudhari MD Abdomen/Pelvis CT 09/15/16 0000 Signed Impressions: Service Date/Time: Thursday, September 15, 2016 17:00 - CONCLUSION: 1. Gaseous distension of the stomach. 2. I do not see evidence for significant colitis. Lowell Gonzalez MD FACR Catheter Placement X-Ray 09/14/16 0000 Signed Impressions: Service Date/Time: Wednesday, September 14, 2016 00:00 - CONCLUSION: Uncomplicated line placement as above. Wesley Chaudhari MD Carotid Artery Ultrasound 09/13/16 0000 Signed Impressions: Service Date/Time: Tuesday, September 13, 2016 16:46 - CONCLUSION: Significant plaque remains evident in the carotid bifurcations. Poor visualization and difficulty velocity sampling of the proximal internal carotid arteries was again encountered. Significant carotid stenosis cannot be excluded. Nonvisualization of the vertebral arteries. Mack Brizuela MD Brain MRI 09/09/16 0000 Signed Impressions: Service Date/Time: August 16:36 - CONCLUSION: 1. Findings demonstrate an acute infarction in the left sylvian region, nonhemorrhagic. 2. Small air-fluid level right maxillary sinus and mild bilateral ethmoid sinus disease. Suresh Diaz MD Renal Ultrasound 09/08/16 0000 Signed Impressions: Service Date/Time: Thursday, September 08, 2016 16:04 - CONCLUSION: Large 6.3 cm cyst lower pole laterally left kidney. No evidence of hydronephrosis or obstructive uropathy.. Christian Cooper MD Physical Exam HEENT: normocephalic; atraumatic; no jaundice. NECK: Supple. CHEST: Chest is clear to auscultation and percussion. CARDIAC: Regular rate and rhythm with no murmur gallop or rubs. ABDOMEN: Soft, nondistended, nontender; no hepatosplenomegaly; bowel sounds are present in all four quadrants. EXTREMITIES: No clubbing, cyanosis, or edema. SKIN: Normal; no rash; no jaundice. 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 Assessment and Plan Plan Patient with known history of coronary artery disease and a recent CABG who also apparently had recent CVA currently intubated patient also appears to be septic and hypotensive on vasopressors apparently the family will be having a discussion later today as to what kind of course of action needs to be taken and at this point we will continue to monitor the situation but patient appears to have poor prognosis and unless family wishes strongly to pursue PEG tube this will continue to be on hold at this point in time For now supportive care and further recommendations shall depend on hospital course Rangel Kent MD Sep 15, 2016 21:30
[2016-09-15] MEDS: ACETAMINOPHEN 325 MG TAB PO PRN (22:59)
[2016-09-16] VITALS (18 sets, daily range): BP systolic 83–145; BP diastolic 56–80; PULSE 80–117; RESP 18–23; TEMP 98.9–103.4; O2SAT 96–100
[2016-09-16] MEDS: PHENYLEPHRINE INJ 40 MG in DEXTROSE 5% IN WATE 500 ML INJ 496 ML IV SCH ×8 (00:31→20:07)
[2016-09-16] MEDS: fentaNYL DRIP 250 ML IV SCH (00:31)
[2016-09-16] MEDS: INSULIN NovoLIN REGULAR SUPPLEMENTAL SCALE SQ SCH ×5 (01:53→20:34)
[2016-09-16 02:31] LABS: BACTERIA, URINE OCC /hpf; BLOOD, URINE MOD (NEG); GLUCOSE,URINE 70 mg/dL (NEG); GRANULAR CAST, URINE 44 /lpf; KETONE, URINE NEG (NEG); MUCUS URINE FEW /lpf (OCC); NITRITE,URINE NEG (NEG); SQUAMOUS EPITHELIAL CELL URINE 3 /hpf (0-5); WAXY CAST, URINE 7 /lpf
[2016-09-16 02:32] LABS: COMMENT (UR) CATH-CULTURE IND; CULTURE IF INDICATED CATH CULTURE IND; URINE COLOR YELLOW (YELLW/STRAW)
[2016-09-16] MEDS: RESP: ALBUTEROL 2.5 MG/IPRATROPIUM 0.5 MG NEB (SCH) NEB ×4 (02:49→19:16)
[2016-09-16] MEDS: CHLORHEXIDINE GLUCONATE 2 % 1 PACK (2 CLOTHS) TOP SCH (04:00)
[2016-09-16 05:27] LABS: AUTOMATED NEUTROPHIL # 15.9 TH/MM3 (1.8-7.7); BASOPHIL # 0.1 TH/MM3 (0-0.2); BASOPHIL % 0.4 % (0.0-2.0); EOSINOPHIL # 0.4 TH/MM3 (0-0.4); EOSINOPHIL % 1.8 % (0.0-4.0); HEMATOCRIT 36.5 % (39.0-51.0); HEMO FLAGS DIFF FINAL; LYMPHOCYTE # 1.8 TH/MM3 (1.0-4.8); MEAN CELL VOLUME 90.3 FL (80.0-100.0); MEAN CORPUSCULAR HEMOGLOBIN 29.8 PG (27.0-34.0); MONO % 9.6 % (0.0-8.0); NEUT % 79.2 % (16.0-70.0); PLATELET COUNT 298 TH/MM3 (150-450); RED BLOOD COUNT 4.05 MIL/MM3 (4.50-5.90); RED CELL DISTRIBUTION WIDTH 15.5 % (11.6-17.2); WHITE BLOOD COUNT 20.1 TH/MM3 (4.0-11.0)
[2016-09-16] MEDS: MEROPENEM INJ 500 MG in SODIUM CHLORIDE 0.9% INJ 100 ML IV SCH ×3 (05:31→20:07)
[2016-09-16] MEDS: METOPROLOL TARTRATE 50 MG TAB PO SCH (05:32)
[2016-09-16 05:43] LABS: BICARBONATE 23.5 MEQ/L (21.0-32.0); POTASSIUM 3.8 MEQ/L (3.5-5.1)
[2016-09-16] MEDS: metroNIDAZOLE 500 MG INJ 100 ML IV SCH ×3 (06:58→22:06)
--- NOTE | 2016-09-16 07:41 | HHI.CCPN ---
Subjective Remarks/Hospital Course 66-year-old gentleman with a history of coronary artery disease status post CABG underwent emergent cardiac catheterization by Dr. Cummins. Postprocedure his course is complicated by aphasia and right-sided weakness. 09/08 Patient was on BIPAP 14/7 with FIO2 25%. On Precedex and heparin drips. CT brain showed last night showed no acute process. Impela was removed this morning by Dr. Cummins. T:99.9 Renal function improving with Cr:2.5 from 3.0 hyperkalemic with K 6.1 09/09: Overnight remained on BiPAP predominantly for sleep apnea. Intermittently follows commands. Will check MRI of the brain today. Creatinine slightly worsened to 2.8. Consulted nephrology, hyperkalemia resolved 09/10: Remains on BiPAP, some interval worsening of respiratory status. Patient is more tachypneic chest x-ray shows left lower lobe infiltrate .Currently sedated with 0.5 g per KG per hour of Precedex. I will discontinue Precedex. MRI brain shows acute infarct left sylvian region. Creatinine slightly worse at 3. Low-grade fever Tmax 100.2, send blood and sputum culture and start Zosyn 09/11: Patient was intubated yesterday for progressively worsening respiratory failure, hypoxemia and altered mentation. On ventilator support patient's oxygenation has improved. He moves all extremities do not following commands. Chest x-ray shows no definite infiltrates 09/12: Extubated yesterday tolerating well oxygenation varghese and protecting airway. No fevers. Urine output 3.8 L in 24 hours with creatinine worsening from 3.9 to 4.5 today. Remains aphasic not following commands 09/13: Somnolent, received Ativan for agitation overnight. Urine output 4 L in 24 hours. Labs are pending at this time. Opens eyes to verbal stimulation, remains aphasic and did not follow commands 09/14 Patient appears somnolent. On no sedation. Renal function worse today with Cr: 7.31 from 5.40 and UO: 715ml in 24hrs. T:100.9 this morning. Remains aphasic. 09/15 Patient was placed on Amio drip overnight for Afib with RVR. HD initiated yesterday with removal 2L. He is currently receiving another HD treatment. Tmax 100.9. Patient remains encephalopathic and does not follow commands. TF was held due to high residuals. 09/16 Patient was intubated yesterday for airway protection. On Fentanyl drip for sedation on Neosyn. Tmax 104. C-diff PCR positive. CT abd/pelvis showed no acute process, gasseous distention. Objective Vital Signs Date Time Temp Pulse Resp B/P Pulse Ox O2 Delivery O2 Flow Rate FiO2 09/16/16 06:00 92 09/16/16 04:03 100 40 09/16/16 04:00 103.4 23 101/68 09/15/16 16:00 Mechanical Ventilator 09/15/16 00:00 4.00 Intake and Output 09/15/16 09/15/16 09/16/16 08:00 16:00 00:00 Intake Total 537 ml 1842 ml 1124 ml Output Total 530 ml 160 ml 990 ml Balance 7 ml 1682 ml 134 ml Result Diagram: 09/16/16 0505 09/16/16 0505 Other Results Laboratory Tests Test 09/15/16 09/15/16 09/15/16 09/16/16 09:55 13:45 21:37 01:45 Stool C. difficile Toxin (PCR) POSITIVE Stl C. difficile Toxin PRESUMPTIVE Epiderm 027 NEGATIVE Blood Gas Puncture Site LT RADIAL Blood Gas Patient Temperature 98.6 Blood Gas HCO3 21 mmol/L Blood Gas Base Excess -3.5 mmol/L Blood Gas Oxygen Saturation 97 % Arterial Blood pH 7.39 Arterial Blood Partial 35 mmHg Pressure CO2 Arterial Blood Partial 175 mmHg Pressure O2 Arterial Blood Oxygen Content 16.8 Vol % Arterial Blood 1.2 % Carboxyhemoglobin Arterial Blood Methemoglobin 1.5 % Blood Gas Hemoglobin 12.1 G/DL Oxygen Delivery Device VENTILATOR Blood Gas Ventilator Setting PRVC/AC Blood Gas Inspired Oxygen 50 % Lactic Acid Level 1.5 mmol/L Urine Color YELLOW Urine Turbidity CLOUDY Urine pH 6.0 Urine Specific [place] 1.024 Urine Protein 300 mg/dL Urine Glucose (UA) 70 mg/dL Urine Ketones NEG mg/dL Urine Occult Blood MOD Urine Nitrite NEG Urine Bilirubin NEG Urine Urobilinogen LESS THAN 2.0 MG/DL Urine Leukocyte Esterase LARGE Urine RBC 90 /hpf Urine WBC 84 /hpf Urine WBC Clumps MANY Urine Squamous Epithelial 3 /hpf Cells Urine Amorphous Sediment RARE Urine Bacteria OCC /hpf Urine Granular Casts 44 /lpf Urine Waxy Casts 7 /lpf Urine Mucus FEW /lpf Microscopic Urinalysis Comment CATH-CULTURE IND Test 09/16/16 05:05 White Blood Count 20.1 TH/MM3 Red Blood Count 4.05 MIL/MM3 Hemoglobin 12.1 GM/DL Hematocrit 36.5 % Mean Corpuscular Volume 90.3 FL Mean Corpuscular Hemoglobin 29.8 PG Mean Corpuscular Hemoglobin 33.0 % Concent Red Cell Distribution Width 15.5 % Platelet Count 298 TH/MM3 Mean Platelet Volume 8.9 FL Neutrophils (%) (Auto) 79.2 % Lymphocytes (%) (Auto) 9.0 % Monocytes (%) (Auto) 9.6 % Eosinophils (%) (Auto) 1.8 % Basophils (%) (Auto) 0.4 % Neutrophils # (Auto) 15.9 TH/MM3 Lymphocytes # (Auto) 1.8 TH/MM3 Monocytes # (Auto) 1.9 TH/MM3 Eosinophils # (Auto) 0.4 TH/MM3 Basophils # (Auto) 0.1 TH/MM3 CBC Comment DIFF FINAL Differential Comment Sodium Level 139 MEQ/L Potassium Level 3.8 MEQ/L Chloride Level 100 MEQ/L Carbon Dioxide Level 23.5 MEQ/L Anion Gap 16 MEQ/L Blood Urea Nitrogen 77 MG/DL Creatinine 8.48 MG/DL Estimat Glomerular Filtration 6 ML/MIN Rate Random Glucose 260 MG/DL Calcium Level 8.8 MG/DL Imaging Last Impressions Chest X-Ray 09/15/16 1621 Signed Impressions: Service Date/Time: Thursday, September 15, 2016 16:33 - CONCLUSION: 1. Uncomplicated line placement. No evidence of pneumothorax. Wesley Chaudhari MD Head CT 09/15/16 0000 Signed Impressions: Service Date/Time: Thursday, September 15, 2016 10:15 - CONCLUSION: 1. Sizable area of decreased attenuation in the left MCA distribution most consistent with subacute cortical infarct. This there is stable compared to previous MR dated 09/09/16. Sanket Gonzalez MD Central Venous Line 09/15/16 0000 Signed Impressions: Service Date/Time: Thursday, September 15, 2016 00:00 - CONCLUSION: Uncomplicated line placement as above. Wesley Chaudhari MD Abdomen/Pelvis CT 09/15/16 0000 Signed Impressions: Service Date/Time: Thursday, September 15, 2016 17:00 - CONCLUSION: 1. Gaseous distension of the stomach. 2. I do not see evidence for significant colitis. Lowell Gonzalez MD FACR Catheter Placement X-Ray 09/14/16 0000 Signed Impressions: Service Date/Time: Wednesday, September 14, 2016 00:00 - CONCLUSION: Uncomplicated line placement as above. Wesley Chaudhari MD Carotid Artery Ultrasound 09/13/16 0000 Signed Impressions: Service Date/Time: Tuesday, September 13, 2016 16:46 - CONCLUSION: Significant plaque remains evident in the carotid bifurcations. Poor visualization and difficulty velocity sampling of the proximal internal carotid arteries was again encountered. Significant carotid stenosis cannot be excluded. Nonvisualization of the vertebral arteries. Mack Brizuela MD Brain MRI 09/09/16 0000 Signed Impressions: Service Date/Time: August 16:36 - CONCLUSION: 1. Findings demonstrate an acute infarction in the left sylvian region, nonhemorrhagic. 2. Small air-fluid level right maxillary sinus and mild bilateral ethmoid sinus disease. Suresh Diaz MD Renal Ultrasound 09/08/16 0000 Signed Impressions: Service Date/Time: Thursday, September 08, 2016 16:04 - CONCLUSION: Large 6.3 cm cyst lower pole laterally left kidney. No evidence of hydronephrosis or obstructive uropathy.. Christian Cooper MD Objective Remarks GENERAL: Well-nourished, well-developed patient. On NC SKIN: Warm and dry. HEAD: Normocephalic. EYES: No scleral icterus. No injection or drainage. ENT: Oral cavity moist NECK: Supple, trachea midline. No JVD or lymphadenopathy. CARDIOVASCULAR: Regular rate and rhythm without murmurs, gallops, or rubs. RESPIRATORY: Breath sounds equal bilaterally. No accessory muscle use. GASTROINTESTINAL: Abdomen soft, non-tender, nondistended. MUSCULOSKELETAL: No cyanosis, or edema. BACK: Nontender without obvious deformity. EXTREMITIES: Somnolent but opens eyes to stimulation, aphasic. Blank stare, donot follow commands. Moving all extremities, weaker on R side A/P Problem List: (1) Acute ischemic left MCA stroke ICD Code: I63.512 Status: Acute (2) Acute renal failure ICD Code: N17.9 Status: Acute (3) CHF (congestive heart failure), NYHA class III ICD Code: I50.9 Status: Acute (4) Coronary artery disease involving [place] heart ICD Code: I25.10 Status: Chronic (5) HTN (hypertension) ICD Code: I10 Status: Acute (6) CKD (chronic kidney disease) ICD Code: N18.9 Status: Acute Assessment and Plan ASSESSMENT Acute left MCA stroke Aphasia with right hemiparesis Metabolic encephalopathy NSTEMI Known CAD C-diff colitis Obstructive sleep apnea UTI with enterococcus HCAP Acute hypoxemic respiratory failure-resolved Acute on chronic kidney disease Hyperkalemia-resolved DM HTN LEONARD Hyperlipidemia Plan Neuro: -On Fentanyl infusion. Monitor neuro status. Ativan PRN for agitation -Repeat CT brain 09/15: Sizable area of decreased attenuation in the left MCA distribution most consistent with subacute cortical infarct -MRI brain 09/09/16-acute left sylvian region infarct. CT brain 09/07: No acute disease. -Continue aspirin and Plavix. Neuro was following- Cr. Patrick. -09/13 EEG: within normal. Pulm: -Extubated 09/11 -Continue with vent support keep sat >92% -Bronchodilators - Might end up needing trach and PEG placement if family desires aggressive care CV: -Wean off Neosyn drip monitor HR and BP keep MAP>65mmHg -Continue with ASA, Plavix, hold Imdur and Lopressor -s/p cardiac cath 09/07 showed multivessel disease with 2/6 grafts patent, EF 40% . s/p PCI with stents of the saphenous venous graft to the first diagonal artery. -s/p removal Impella 09/08. Cardiology- Dr. Cummins : -Monitor renal function, I/O's, avoid nephrotoxins. -HD initiated 09/14 with removal 2L. HD per renal -Renal-Dr. Naidu. . GI: - On Protonix 40mg -OGT to LIWS, monitor gastric drainage .GI is following ID: Leukocytosis C-diff colitis -Continue abx per ID ( PO Vanco, IV Flagyl, Merrem, Micafungin). Monitor for signs of infections ( Fever, WBC) -Follow up on cxs, CT abd/pelvis: Gaseous distention, no acute process Heme: -Monitor CBC Endo: -SSI with accuchecks for glycemic control GI prophylaxis - on Protonix 40mg Q12 DVT prophylaxis - SCD, Heparin 5000 units subcutaneous every 12 Palliative care is following. Awaiting family's decision re goals of care if they want aggressive care patient will likely need trach and PEG tube placement. Lines: Right Vascth placed 09/14, Right IJ CVP placed 09/15 CCT 30 mins Problem Qualifiers (1) Acute renal failure: Qualified Code: N17.0 - Acute renal failure with tubular necrosis Leroy Urena MD Sep 16, 2016 07:41
[2016-09-16] MEDS: ASPIRIN EC 81 MG TABEC PO SCH (09:00)
--- NOTE | 2016-09-16 09:11 | HHI.NPPN ---
Subjective History of Present Illness 66-year-old male with history of coronary artery disease status post CABG, osteoarthritis, diabetes, hyperlipidemia who was admitted there with unstable angina and underwent heart catheterization found to have significant blockages requiring stent and impella device, he has acute renal failure. Additional Remarks Patient remain unresponsive off sedation and Vent Objective Data Data 09/15/16 09/16/16 19:00 07:00 Intake Total 1842 ml 2039 ml Output Total 660 ml 1310 ml Balance 1182 ml 729 ml IV Total 1842 ml 1919 ml Tube Irrigant 120 ml Output Urine Total 10 ml 60 ml Stool Total 1000 ml Gastric Drainage Total 150 ml 250 ml Hemodialysis 500 ml Vital Signs Date Time Temp Pulse Resp B/P Pulse Ox O2 Delivery O2 Flow Rate FiO2 09/16/16 07:53 100 40 09/16/16 06:00 92 09/16/16 04:03 100 40 09/16/16 04:00 95 09/16/16 04:00 103.4 95 23 101/68 09/16/16 02:00 117 09/16/16 01:02 98 40 09/16/16 00:00 102.0 99 22 125/80 96 09/16/16 00:00 99 09/15/16 22:29 97 40 09/15/16 22:00 108 09/15/16 20:17 100 40 09/15/16 20:00 100.7 91 21 113/59 100 09/15/16 20:00 86 09/15/16 18:00 92 09/15/16 17:30 100 100 09/15/16 16:00 99.6 108 24 128/64 99 09/15/16 16:00 98 Mechanical Ventilator 09/15/16 16:00 89 09/15/16 15:38 100 40 09/15/16 14:00 92 09/15/16 12:54 98 50 09/15/16 12:00 108 09/15/16 12:00 100.7 108 40 122/72 99 09/15/16 12:00 99 Bi-Pap 09/15/16 11:41 98 40 09/15/16 10:00 102 -: 09/16/16 0505 09/16/16 0505 Microbiology 09/15/16 Aerobic Blood Culture, Received Pending 09/15/16 Anaerobic Blood Culture, Received Pending 09/15/16 Aerobic Blood Culture, Received Pending 09/15/16 Anaerobic Blood Culture, Received Pending 09/16/16 Urine Culture, Received Pending Physical Exam General Appearance: Well Developed, Well Nourished Pulmonary Resp Exam: Crackles, Rhonchi, Decreased Bases, Diminished Breath Sounds Cardiology CV Exam: Regular, Normal Sinus Rhythm Gastrointestinal/Abdomen GI Exam: Soft, Non-Tender, Bowel Sounds Present, Distended Extremeties Extremities Exam: Moderate Edema, Pitting Edema, Dependent Edema Neurologic Neuro Exam: Sedated Assessment/Plan Problem List: (1) Acute renal failure Plan: on vasopressor BP better on vent intubated He has elevation in the creatinine and he is oliguric. Renal failure on hemodialysis next HD tomorrow continue supportive care (2) Hyperkalemia Plan: Resolved (3) Chronic kidney disease Plan: He has stage III chronic kidney disease due to diabetic (4) CHF (congestive heart failure), NYHA class III Plan: Continue to monitor for improvement (5) Coronary artery disease involving [place] heart Plan: Review his bypass and stents (6) Hypertension, essential, benign Plan: Monitor blood pressure (7) Diabetes mellitus, type II Plan: Monitor blood glucose (8) UTI (lower urinary tract infection) Plan: Meropenem (9) CVA (cerebral vascular accident) Plan: remain unresponsive moves left side more Problem Qualifiers (1) Acute renal failure: Qualified Code: N17.0 - Acute renal failure with tubular necrosis (2) Chronic kidney disease: Qualified Code: N18.4 - Chronic kidney disease, stage 4 (severe) Marisol Naidu MD Sep 16, 2016 09:11
[2016-09-16] MEDS: SODIUM CHLORIDE 0.9% FLUSH 5 ML FLUSH IVF SCH (09:19)
[2016-09-16] MEDS: SODIUM CHLORIDE 0.9% FLUSH 5 ML FLUSH IV FLUSH SCH ×2 (09:19→20:08)
[2016-09-16] MEDS: ARTIFICIAL TEARS OPTH OINT 3.5 APPLIC/3.5 GM TUBO EACH EYE SCH ×2 (09:19→20:17)
[2016-09-16] MEDS: CHLORHEXIDINE 0.12% (ORAL KIT) 15 ML CUP MT SCH ×2 (09:19→20:10)
[2016-09-16] MEDS: PANTOPRAZOLE SODIUM 40 MG VIAL IV PUSH SCH ×2 (09:20→20:10)
[2016-09-16] MEDS: HEPARIN SODIUM - SQ 10,000 UNITS/ML VIAL SQ SCH ×2 (09:20→20:09)
[2016-09-16] MEDS: VANCOMYCIN 500 MG VIAL (FOR ORAL USE ONLY) PO SCH ×4 (09:20→20:09)
[2016-09-16] MEDS: CLOPIDOGREL 75 MG TAB PO SCH (09:21)
[2016-09-16] MEDS: DOCUSATE SODIUM 100 MG/10 ML UDC PO SCH ×2 (09:21→20:08)
--- NOTE | 2016-09-16 10:51 | HHI.HCPN ---
Reason for visit a. To assist with evaluation and management of symptoms including: shortness of breath and debility. b. To assist medical decision maker(s) with: better understanding of current medical conditions; weighing benefits/burdens of medical treatment options; making medical treatment decisions. . Subjective/Interval History Patient seen in ICU. He is now intubated, sedated on mechanical ventilation. Patient's respiratory condition continued to worsen yesterday requiring BiPAP, he was subsequently intubated for airway protection. Tube feeding on hold due to high residuals, CT of abdomen/pelvis obtained 09/15/16 showing gaseous distention but no significant evidence of colitis. C. Diff CPR positive. ID - Dr. Mini Becker consulted for recommendations. Patient febrile, max temp 103.4 this morning, cooling blanket in place. Slightly tachycardic with HR in the low 100's. Blood pressure improving after intubation/sedation but remains on remains on Rory-synephrine drip. Laboratory today WBC 20.1, Hgb 12.1, pl 298. Na 139, K 3.8, BUN/creat 77/8.48. Nephrology following. UA today negative for nitrates, pending culture. Received telephone call from Dr. Salcedo, who has been patient's primary care physician since 2011. She reports multiple prior conversation with patient regarding advance directives. As per Dr. Salcedo, patient has previously verbalized wishing to be DNR. In addition, patient wishing for 2 of his 3 children (Sedrick and Yani [place]) to be his surrogate decision-maker. However, no formal DNR or designation of HCS was completed as patient declined completing these forms. Pending family meeting at 11:00 AM. Palliative care to share this information with family. . Family/friend interactions Meeting with patient's son Sedrick and pt's grandson Louie (Vaibhav's son). He tells me that pt's daughter Yani is in [place] and is expected to arrive this Tuesday09/18/16. Medical update provided. Reviewed clinical course and current medical management. Reviewed worsening clinical condition, now on 3 forms of life support to include mechanical ventilation, vasopressors and INSTRUMENT ROOM TECHNICIAN. Discussed concerns regarding patient's worsening condition and poor prognosis for a meaningful recovery. Reviewed patient's stated wishes as previously discussed with his PCP regarding code status and medical-decision making. Discussed CPR given pt's critical condition. Son Sedrick expressing difficulty processing all of this information. Encouraged son to contact other two siblings to discuss code status given pt's worsening condition. Reviewed that even if patient survives a cardiac code, he would likely be in worse clinical condition that he currently is. Palliative care to f/u with max Dubose. Active listening and emotional support provided. . Advance Directives Advance Directive Specifics Health Care Surrogate(s): Max Dubose not sure if patient has completed advance directives. As per [place] statute, healthcare decision-making falls to patient's 3 children. . Documented care wishes: Unclear at this time if advance directives have been completed. . Significant change in goals: FULL CODE FOR NOW. Continue aggressive care. Family discussing goals of care. . Objective Vital Signs Date Time Temp Pulse Resp B/P Pulse Ox O2 Delivery O2 Flow Rate FiO2 09/16/16 07:53 100 40 09/16/16 06:00 92 09/16/16 04:03 100 40 09/16/16 04:00 95 09/16/16 04:00 103.4 95 23 101/68 09/16/16 02:00 117 09/16/16 01:02 98 40 09/16/16 00:00 102.0 99 22 125/80 96 09/16/16 00:00 99 09/15/16 22:29 97 40 09/15/16 22:00 108 09/15/16 20:17 100 40 09/15/16 20:00 100.7 91 21 113/59 100 09/15/16 20:00 86 09/15/16 18:00 92 09/15/16 17:30 100 100 09/15/16 16:00 99.6 108 24 128/64 99 09/15/16 16:00 98 Mechanical Ventilator 09/15/16 16:00 89 09/15/16 15:38 100 40 09/15/16 14:00 92 09/15/16 12:54 98 50 09/15/16 12:00 108 09/15/16 12:00 100.7 108 40 122/72 99 09/15/16 12:00 99 Bi-Pap 09/15/16 11:41 98 40 Intake & Output 09/16/16 09/16/16 07:00 19:00 Intake Total 2039 ml Output Total 1310 ml Balance 729 ml IV Total 1919 ml Tube Irrigant 120 ml Output Urine Total 60 ml Stool Total 1000 ml Gastric Drainage Total 250 ml Physical Exam CONSTITUTIONAL/GENERAL: This is an adequately nourished patient in no acute distress. Sedated, intubated on mechanical ventilation. TUBES/LINES/DRAINS: PIV's, SCDs, Guillen catheter, dialysis catheter. ETT. SKIN: No jaundice, rashes, or lesions. No wounds seen anteriorly. Not diaphoretic. Dry skin. HEAD: Atraumatic. Normocephalic. ENT: Unable to evaluate hearing secondary to clinical condition.. Nose without bleeding or purulent drainage.EET in place. NECK: Trachea midline. Supple. CARDIOVASCULAR: Tachycardic with heart rate in the 110s. irregular rate and rhythm. RESPIRATORY/CHEST: Symmetric, unlabored. Coarse breath sounds anteriorly. Intubated on mechanical ventilation. GASTROINTESTINAL: Abdomen soft, large, round. Bowel sounds present. GENITOURINARY: Without palpable bladder distension. Guillen catheter in place. MUSCULOSKELETAL: Extremities without clubbing, cyanosis. NEUROLOGICAL: Unresponsive to tactile or verbal stimuli. Not following any commands. PSYCHIATRIC: Unable to assess secondary to clinical condition. Appears calm. . Diagnostic Tests Laboratory Laboratory Tests Test 09/13/16 09/13/16 09/14/16 09/14/16 18:25 18:43 05:51 05:57 Blood Gas Puncture Site RT RADIAL Blood Gas Patient Temperature 98.6 Blood Gas HCO3 27 mmol/L (22-26) Blood Gas Base Excess 2.8 mmol/L (-2-2) Blood Gas Oxygen Saturation 95 % (90-100) Arterial Blood pH 7.38 (7.380-7.420) Arterial Blood Partial 47 mmHg (38-42) Pressure CO2 Arterial Blood Partial 105 mmHg Pressure O2 (61-120) Arterial Blood Oxygen Content 16.6 Vol % (12.0-20.0) Arterial Blood 1.4 % (0-4) Carboxyhemoglobin Arterial Blood Methemoglobin 1.2 % (0-2) Blood Gas Hemoglobin 12.3 G/DL (12.0-16.0) Oxygen Delivery Device NASAL CANNULA Blood Gas Liter Flow 3 L/M White Blood Count 12.3 TH/MM3 14.4 TH/MM3 (4.0-11.0) (4.0-11.0) Red Blood Count 4.06 MIL/MM3 4.27 MIL/MM3 (4.50-5.90) (4.50-5.90) Hemoglobin 12.1 GM/DL 12.8 GM/DL (13.0-17.0) (13.0-17.0) Hematocrit 36.4 % 38.4 % (39.0-51.0) (39.0-51.0) Mean Corpuscular Volume 89.7 FL 90.0 FL (80.0-100.0) (80.0-100.0) Mean Corpuscular Hemoglobin 29.8 PG 29.9 PG (27.0-34.0) (27.0-34.0) Mean Corpuscular Hemoglobin 33.2 % 33.2 % Concent (32.0-36.0) (32.0-36.0) Red Cell Distribution Width 15.5 % 15.2 % (11.6-17.2) (11.6-17.2) Platelet Count 241 TH/MM3 269 TH/MM3 (150-450) (150-450) Mean Platelet Volume 8.6 FL 8.6 FL (7.0-11.0) (7.0-11.0) Sodium Level 146 MEQ/L (136-145) Potassium Level 3.4 MEQ/L (3.5-5.1) Chloride Level 106 MEQ/L (98-107) Carbon Dioxide Level 25.9 MEQ/L (21.0-32.0) Anion Gap 14 MEQ/L (5-15) Blood Urea Nitrogen 85 MG/DL (7-18) Creatinine 7.31 MG/DL (0.60-1.30) Estimat Glomerular Filtration 7 ML/MIN (>89) Rate Random Glucose 225 MG/DL (74-106) Calcium Level 9.2 MG/DL (8.5-10.1) Total Bilirubin 0.7 MG/DL (0.2-1.0) Aspartate Amino Transf 27 U/L (15-37) (AST/SGOT) Alanine Aminotransferase 37 U/L (12-78) (ALT/SGPT) Alkaline Phosphatase 63 U/L (45-117) Total Protein 8.5 GM/DL (6.4-8.2) Albumin 3.5 GM/DL (3.4-5.0) Neutrophils (%) (Auto) 80.8 % (16.0-70.0) Lymphocytes (%) (Auto) 5.0 % (9.0-44.0) Monocytes (%) (Auto) 12.2 % (0.0-8.0) Eosinophils (%) (Auto) 1.5 % (0.0-4.0) Basophils (%) (Auto) 0.5 % (0.0-2.0) Neutrophils # (Auto) 11.6 TH/MM3 (1.8-7.7) Lymphocytes # (Auto) 0.7 TH/MM3 (1.0-4.8) Monocytes # (Auto) 1.8 TH/MM3 (0-0.9) Eosinophils # (Auto) 0.2 TH/MM3 (0-0.4) Basophils # (Auto) 0.1 TH/MM3 (0-0.2) CBC Comment DIFF FINAL Differential Comment Test 09/14/16 09/14/16 09/14/16 09/15/16 08:45 13:20 21:20 04:05 Urine Color YELLOW (YELLW/STRAW) Urine Turbidity CLOUDY (CLEAR) Urine pH 6.0 (5.0-8.5) Urine Specific Hartley 1.018 (1.002-1.035) Urine Protein 300 mg/dL (NEG-TRACE) Urine Glucose (UA) TRACE mg/dL (NEG) Urine Ketones NEG mg/dL (NEG) Urine Occult Blood MOD (NEG) Urine Nitrite NEG (NEG) Urine Bilirubin NEG (NEG) Urine Urobilinogen LESS THAN 2.0 MG/DL (LESS THAN 2.0) Urine Leukocyte Esterase MOD (NEG) Urine RBC 44 /hpf (0-3) Urine WBC 51 /hpf (0-5) Urine Squamous Epithelial 1 /hpf (0-5) Cells Urine Amorphous Sediment MOD Urine Bacteria MANY /hpf (NONE) Urine Hyaline Casts 0-2 /lpf (RARE) Urine Mucus FEW /lpf (OCC) Microscopic Urinalysis Comment CATH-CULTURE IND Hepatitis A IgM Antibody NEGATIVE (NEGATIVE) Hepatitis B Surface Antigen NEGATIVE (NEGATIVE) Hepatitis B Core IgM Antibody NEGATIVE (NEGATIVE) Hepatitis C Antibody NEGATIVE (NEGATIVE) Blood Gas Puncture Site RT RADIAL Blood Gas Patient Temperature 98.6 Blood Gas HCO3 24 mmol/L (22-26) Blood Gas Base Excess -0.5 mmol/L (-2-2) Blood Gas Oxygen Saturation 95 % (90-100) Arterial Blood pH 7.39 (7.380-7.420) Arterial Blood Partial 40 mmHg (38-42) Pressure CO2 Arterial Blood Partial 103 mmHg Pressure O2 (61-120) Arterial Blood Oxygen Content 19.4 Vol % (12.0-20.0) Arterial Blood 1.3 % (0-4) Carboxyhemoglobin Arterial Blood Methemoglobin 1.2 % (0-2) Blood Gas Hemoglobin 14.5 G/DL (12.0-16.0) Oxygen Delivery Device BIPAP10/5/40% Blood Gas Inspired Oxygen 40 % White Blood Count 19.6 TH/MM3 (4.0-11.0) Red Blood Count 4.52 MIL/MM3 (4.50-5.90) Hemoglobin 13.6 GM/DL (13.0-17.0) Hematocrit 41.6 % (39.0-51.0) Mean Corpuscular Volume 92.1 FL (80.0-100.0) Mean Corpuscular Hemoglobin 30.1 PG (27.0-34.0) Mean Corpuscular Hemoglobin 32.7 % Concent (32.0-36.0) Red Cell Distribution Width 15.5 % (11.6-17.2) Platelet Count 365 TH/MM3 (150-450) Mean Platelet Volume 8.9 FL (7.0-11.0) Neutrophils (%) (Auto) 78.7 % (16.0-70.0) Lymphocytes (%) (Auto) 4.1 % (9.0-44.0) Monocytes (%) (Auto) 16.5 % (0.0-8.0) Eosinophils (%) (Auto) 0.6 % (0.0-4.0) Basophils (%) (Auto) 0.1 % (0.0-2.0) Neutrophils # (Auto) 15.4 TH/MM3 (1.8-7.7) Lymphocytes # (Auto) 0.8 TH/MM3 (1.0-4.8) Monocytes # (Auto) 3.2 TH/MM3 (0-0.9) Eosinophils # (Auto) 0.1 TH/MM3 (0-0.4) Basophils # (Auto) 0.0 TH/MM3 (0-0.2) CBC Comment AUTO DIFF Differential Comment AUTO DIFF CONFIRMED Platelet Estimate NORMAL (NORMAL) Platelet Morphology Comment NORMAL (NORMAL) Prothrombin Time 14.2 SEC (9.8-11.6) Prothromb Time International 1.3 RATIO Ratio Sodium Level 142 MEQ/L (136-145) Potassium Level 4.6 MEQ/L (3.5-5.1) Chloride Level 98 MEQ/L (98-107) Carbon Dioxide Level 26.6 MEQ/L (21.0-32.0) Anion Gap 17 MEQ/L (5-15) Blood Urea Nitrogen 84 MG/DL (7-18) Creatinine 8.94 MG/DL (0.60-1.30) Estimat Glomerular Filtration 6 ML/MIN (>89) Rate Random Glucose 273 MG/DL (74-106) Calcium Level 9.3 MG/DL (8.5-10.1) Phosphorus Level 5.7 MG/DL (2.5-4.9) Test 09/15/16 09/15/16 09/15/16 09/16/16 09:55 13:45 21:37 01:45 Stool C. difficile Toxin (PCR) POSITIVE (NEGATIVE) Stl C. difficile Toxin PRESUMPTIVE Epiderm 027 NEGATIVE (NEGATIVE) Blood Gas Puncture Site LT RADIAL Blood Gas Patient Temperature 98.6 Blood Gas HCO3 21 mmol/L (22-26) Blood Gas Base Excess -3.5 mmol/L (-2-2) Blood Gas Oxygen Saturation 97 % (90-100) Arterial Blood pH 7.39 (7.380-7.420) Arterial Blood Partial 35 mmHg (38-42) Pressure CO2 Arterial Blood Partial 175 mmHg Pressure O2 (61-120) Arterial Blood Oxygen Content 16.8 Vol % (12.0-20.0) Arterial Blood 1.2 % (0-4) Carboxyhemoglobin Arterial Blood Methemoglobin 1.5 % (0-2) Blood Gas Hemoglobin 12.1 G/DL (12.0-16.0) Oxygen Delivery Device VENTILATOR Blood Gas Ventilator Setting PRVC/AC Blood Gas Inspired Oxygen 50 % Lactic Acid Level 1.5 mmol/L (0.4-2.0) Urine Color YELLOW (YELLW/STRAW) Urine Turbidity CLOUDY (CLEAR) Urine pH 6.0 (5.0-8.5) Urine Specific Hartley 1.024 (1.002-1.035) Urine Protein 300 mg/dL (NEG-TRACE) Urine Glucose (UA) 70 mg/dL (NEG) Urine Ketones NEG mg/dL (NEG) Urine Occult Blood MOD (NEG) Urine Nitrite NEG (NEG) Urine Bilirubin NEG (NEG) Urine Urobilinogen LESS THAN 2.0 MG/DL (LESS THAN 2.0) Urine Leukocyte Esterase LARGE (NEG) Urine RBC 90 /hpf (0-3) Urine WBC 84 /hpf (0-5) Urine WBC Clumps MANY (NONE) Urine Squamous Epithelial 3 /hpf (0-5) Cells Urine Amorphous Sediment RARE Urine Bacteria OCC /hpf (NONE) Urine Granular Casts 44 /lpf (NONE) Urine Waxy Casts 7 /lpf (NONE) Urine Mucus FEW /lpf (OCC) Microscopic Urinalysis Comment CATH-CULTURE IND Test 09/16/16 05:05 White Blood Count 20.1 TH/MM3 (4.0-11.0) Red Blood Count 4.05 MIL/MM3 (4.50-5.90) Hemoglobin 12.1 GM/DL (13.0-17.0) Hematocrit 36.5 % (39.0-51.0) Mean Corpuscular Volume 90.3 FL (80.0-100.0) Mean Corpuscular Hemoglobin 29.8 PG (27.0-34.0) Mean Corpuscular Hemoglobin 33.0 % Concent (32.0-36.0) Red Cell Distribution Width 15.5 % (11.6-17.2) Platelet Count 298 TH/MM3 (150-450) Mean Platelet Volume 8.9 FL (7.0-11.0) Neutrophils (%) (Auto) 79.2 % (16.0-70.0) Lymphocytes (%) (Auto) 9.0 % (9.0-44.0) Monocytes (%) (Auto) 9.6 % (0.0-8.0) Eosinophils (%) (Auto) 1.8 % (0.0-4.0) Basophils (%) (Auto) 0.4 % (0.0-2.0) Neutrophils # (Auto) 15.9 TH/MM3 (1.8-7.7) Lymphocytes # (Auto) 1.8 TH/MM3 (1.0-4.8) Monocytes # (Auto) 1.9 TH/MM3 (0-0.9) Eosinophils # (Auto) 0.4 TH/MM3 (0-0.4) Basophils # (Auto) 0.1 TH/MM3 (0-0.2) CBC Comment DIFF FINAL Differential Comment Sodium Level 139 MEQ/L (136-145) Potassium Level 3.8 MEQ/L (3.5-5.1) Chloride Level 100 MEQ/L (98-107) Carbon Dioxide Level 23.5 MEQ/L (21.0-32.0) Anion Gap 16 MEQ/L (5-15) Blood Urea Nitrogen 77 MG/DL (7-18) Creatinine 8.48 MG/DL (0.60-1.30) Estimat Glomerular Filtration 6 ML/MIN (>89) Rate Random Glucose 260 MG/DL (74-106) Calcium Level 8.8 MG/DL (8.5-10.1) Result Diagram: 09/16/16 0505 09/16/16 0505 Microbiology Microbiology Date/Time Procedure Status Source Growth 09/14/16 08:45 Urine Culture - Final Complete Urine Catheterized Urine NO GROWTH IN 48 HOURS. 09/14/16 10:55 Aerobic Blood Culture - Preliminary Resulted Blood Peripheral NO GROWTH IN 1 DAY 09/14/16 10:55 Anaerobic Blood Culture - Preliminary Resulted Blood Peripheral NO GROWTH IN 1 DAY 09/14/16 11:01 Aerobic Blood Culture - Preliminary Resulted Blood Peripheral NO GROWTH IN 1 DAY 09/14/16 11:01 Anaerobic Blood Culture - Preliminary Resulted Blood Peripheral NO GROWTH IN 1 DAY 09/15/16 21:30 Aerobic Blood Culture Received Blood Other Pending 09/15/16 21:30 Anaerobic Blood Culture Received Blood Other Pending 09/15/16 21:37 Aerobic Blood Culture Received Blood Other Pending 09/15/16 21:37 Anaerobic Blood Culture Received Blood Other Pending 09/16/16 01:45 Urine Culture Received Urine Catheterized Urine Pending Imaging Last Impressions Chest X-Ray 09/15/16 1621 Signed Impressions: Service Date/Time: Thursday, September 15, 2016 16:33 - CONCLUSION: 1. Uncomplicated line placement. No evidence of pneumothorax. Wesley Chaudhari MD Head CT 09/15/16 0000 Signed Impressions: Service Date/Time: Thursday, September 15, 2016 10:15 - CONCLUSION: 1. Sizable area of decreased attenuation in the left MCA distribution most consistent with subacute cortical infarct. This there is stable compared to previous MR dated 09/09/16. Sanket Gonzalez MD Central Venous Line 09/15/16 0000 Signed Impressions: Service Date/Time: Thursday, September 15, 2016 00:00 - CONCLUSION: Uncomplicated line placement as above. Wesley Chaudhari MD Abdomen/Pelvis CT 09/15/16 0000 Signed Impressions: Service Date/Time: Thursday, September 15, 2016 17:00 - CONCLUSION: 1. Gaseous distension of the stomach. 2. I do not see evidence for significant colitis. Lowell Gonzalez MD FACR Catheter Placement X-Ray 09/14/16 0000 Signed Impressions: Service Date/Time: Wednesday, September 14, 2016 00:00 - CONCLUSION: Uncomplicated line placement as above. Wesley Chaudhari MD Carotid Artery Ultrasound 09/13/16 0000 Signed Impressions: Service Date/Time: Tuesday, September 13, 2016 16:46 - CONCLUSION: Significant plaque remains evident in the carotid bifurcations. Poor visualization and difficulty velocity sampling of the proximal internal carotid arteries was again encountered. Significant carotid stenosis cannot be excluded. Nonvisualization of the vertebral arteries. Mack Brizuela MD Brain MRI 09/09/16 0000 Signed Impressions: Service Date/Time: August 16:36 - CONCLUSION: 1. Findings demonstrate an acute infarction in the left sylvian region, nonhemorrhagic. 2. Small air-fluid level right maxillary sinus and mild bilateral ethmoid sinus disease. Suresh Diaz MD Renal Ultrasound 09/08/16 0000 Signed Impressions: Service Date/Time: Thursday, September 08, 2016 16:04 - CONCLUSION: Large 6.3 cm cyst lower pole laterally left kidney. No evidence of hydronephrosis or obstructive uropathy.. Christian Cooper MD Procedures * 09/15/06 -intubation * 09/14/16 -dialysis catheter placement . * 09/11/16 -extubation. * 09/10/16 -intubation. * 09/07/16 -cardiac catheter with angioplasty and stent placement. . Assessment and Plan Disease Oriented Problem List: (1) Acute tubular necrosis (2) Acute ischemic left MCA stroke (3) CAD (coronary artery disease) of bypass graft (4) CHF (congestive heart failure), NYHA class II Symptom Scale: (1) Shortness of breath 0-10 Scale: Unable to quantify Comment: Reintubated 09/15/06. On mechanical ventilation. (2) Debility 0-10 Scale: Unable to quantify Comment: Secondary to CVA, acute complications, hospitalization. Pertinent Non-Medical Issues Psychosocial: . Has 2 children. Living independently prior to this hospitalization. Spiritual: Amish. Legal: Unknown if advance directives have been completed. Ethical issues impacting care: Unknown if advance directives have been completed. . Important Contacts Max Birmingham [phone]. Son Vaibhav Salgado. Daughter Yani. . Prognosis Mr. Ferguson is a 66 y/o male with an adhesive significant cardiac history to include stenting in 2010, CAD status post 6 vessel CABG in 2011, and angioplasty and stenting in September 06. He was found to have significant blockage requiring angioplasty and stenting. 2 of 6 grafts are currently patent. Post cardiac catheter, patient developed aphasia and right sided hemiparesis. MRI of the brain showing acute nonhemorrhagic infarct. Patient was intubated and subsequently extubated secondary to respiratory failure and altered mental status. Vertical condition remains the same, he is obtunded and not following any commands. Patient with history of CKD now with acute tubular necrosis requiring renal replacement therapy. His prognosis is poor for a meaningful neurological recovery even if he is to survive this hospitalization given his age, severity of cardiac disease, complications to include stroke, and multiple comorbidities. He is at a very high risk for further decline, complications and . . Code Status: Full Code Plan * CODE STATUS: Full code. Risks, benefits and limitations of CPR, intubation and mechanical ventilation readdressed with patient's son on 09/16/16 given patient's worsening clinical condition. Encouraged to discuss further with family. * MEDICAL DECISION-MAKING: Patient incapacitated to make healthcare decisions secondary to clinical condition, unclear if he will regain. Max Dubose not sure if patient has completed advance directives. As per [place] statute, healthcare decision-making falls to patient's 3 children. * GOALS OF CARE: Continue aggressive care for now. Daughter Yani to arrive from [place] on Tuesday09/18/16. Family currently discussing code status. Meeting with patient's son Sedrick and pt's grandson Louie. Medical update provided. Reviewed clinical course and current medical management. Reviewed worsening clinical condition, now on 3 forms of life support to include mechanical ventilation, vasopressors and INSTRUMENT ROOM TECHNICIAN. Discussed concerns regarding patient's worsening condition and poor prognosis for a meaningful recovery. Reviewed patient's stated wishes as previously discussed with his PCP regarding code status (wishing to be DNR) and medical-decision making. Discussed CPR given pt' s critical condition. Son Sedrick expressing difficulty processing all of this information. Encouraged son to contact other two siblings to discuss code status given pt's worsening condition. Reviewed that even if patient survives a cardiac code, he would likely be in worse clinical condition that he currently is. * SYMPTOMS: == Shortness of breath, patient recently intubated and extubated. Worsening clinical condition. Reintubated 09/15/16, remains on mechanical ventilation. == Debility, secondary to CVA, acute events and hospitalization. = = Anxiety, patient appears calm. Sedation off for the past 4 days. * Case discussed with Dr. Salcedo (pt's PCP), Dr. Mini Becker and bedside RN. * Palliative care contact information has been provided to patient's son Sedrick. * Palliative care will continue to follow-up to assist with symptom management and to further evaluate goals of care as the clinical course of goals. . Time Spent Total Floor Time (mins): 43 (Total time to include review of medical records, physical exam, family meeting and case discussion with Mini Calderon and bedside RN. ) >50% Counseling/Coord of Care: Yes Attestation To help prompt me to consider important information that might be impacting today's encounter and assessment, information from prior notes written by myself or my colleagues may have been "brought forward" into today's note. My signature on this note, however, is an attestation that I personally performed the exam, history, and/or decision-making noted today, and, unless otherwise indicated, the interactions with patient, family, and staff as well as the review of records all occurred today. I also attest that the listed assessment and stated plan reflect my best clinical judgment today based on the combination of historical information, prior notes, and today's exam/ interactions. When time spent is documented, it refers only to time spent today by the signer, or if indicated, combined time spent today by collaborating physician/nurse practitioner. Simran Sorto Sep 16, 2016 10:51
--- NOTE | 2016-09-16 15:24 | HHI.GIFU ---
Subjective Remarks Resting in bed, sedated on vent, no distress. Family arriving 09/18, to decide on goals of care at that time. (Elidia Black) Objective Vitals I&O Vital Signs Date Time Temp Pulse Resp B/P Pulse Ox O2 Delivery O2 Flow Rate FiO2 09/16/16 11:00 100 40 09/16/16 07:53 100 40 09/16/16 06:00 92 09/16/16 04:03 100 40 09/16/16 04:00 95 09/16/16 04:00 103.4 95 23 101/68 09/16/16 02:00 117 09/16/16 01:02 98 40 09/16/16 00:00 102.0 99 22 125/80 96 09/16/16 00:00 99 09/15/16 22:29 97 40 09/15/16 22:00 108 09/15/16 20:17 100 40 09/15/16 20:00 100.7 91 21 113/59 100 09/15/16 20:00 86 09/15/16 18:00 92 09/15/16 17:30 100 100 09/15/16 16:00 99.6 108 24 128/64 99 09/15/16 16:00 98 Mechanical Ventilator 09/15/16 16:00 89 09/15/16 15:38 100 40 I/O 09/15/16 09/15/16 09/15/16 09/16/16 09/16/16 09/16/16 07:00 15:00 23:00 07:00 15:00 23:00 Intake Total 537 ml 1842 ml 1124 ml 915 ml Output Total 30 ml 660 ml 990 ml 320 ml Balance 507 ml 1182 ml 134 ml 595 ml IV Total 237 ml 1842 ml 1064 ml 855 ml Tube Irrigant 60 ml 60 ml Other 300 ml Output Urine Total 30 ml 10 ml 40 ml 20 ml Stool Total 800 ml 200 ml Gastric Drainage Total 150 ml 150 ml 100 ml Hemodialysis 500 ml # Bowel Movements 1 Laboratory Laboratory Tests Test 09/15/16 09/16/16 09/16/16 21:37 01:45 05:05 Lactic Acid Level 1.5 Urine Color YELLOW Urine Turbidity CLOUDY Urine pH 6.0 Urine Specific [place] 1.024 Urine Protein 300 Urine Glucose (UA) 70 Urine Ketones NEG Urine Occult Blood MOD Urine Nitrite NEG Urine Bilirubin NEG Urine Urobilinogen LESS THAN 2.0 Urine Leukocyte Esterase LARGE Urine RBC 90 Urine WBC 84 Urine WBC Clumps MANY Urine Squamous Epithelial 3 Cells Urine Amorphous Sediment RARE Urine Bacteria OCC Urine Granular Casts 44 Urine Waxy Casts 7 Urine Mucus FEW Microscopic Urinalysis Comment CATH-CULTURE IND White Blood Count 20.1 Red Blood Count 4.05 Hemoglobin 12.1 Hematocrit 36.5 Mean Corpuscular Volume 90.3 Mean Corpuscular Hemoglobin 29.8 Mean Corpuscular Hemoglobin 33.0 Concent Red Cell Distribution Width 15.5 Platelet Count 298 Mean Platelet Volume 8.9 Neutrophils (%) (Auto) 79.2 Lymphocytes (%) (Auto) 9.0 Monocytes (%) (Auto) 9.6 Eosinophils (%) (Auto) 1.8 Basophils (%) (Auto) 0.4 Neutrophils # (Auto) 15.9 Lymphocytes # (Auto) 1.8 Monocytes # (Auto) 1.9 Eosinophils # (Auto) 0.4 Basophils # (Auto) 0.1 CBC Comment DIFF FINAL Differential Comment Sodium Level 139 Potassium Level 3.8 Chloride Level 100 Carbon Dioxide Level 23.5 Anion Gap 16 Blood Urea Nitrogen 77 Creatinine 8.48 Estimat Glomerular Filtration 6 Rate Random Glucose 260 Calcium Level 8.8 Date/Time Procedure Status Source Growth 09/16/16 01:45 Urine Culture Received Urine Catheterized Urine Pending 09/15/16 21:37 Aerobic Blood Culture - Preliminary Resulted Blood Other NO GROWTH IN 1 DAY 09/15/16 21:37 Anaerobic Blood Culture - Preliminary Resulted Blood Other NO GROWTH IN 1 DAY 09/14/16 08:45 Urine Culture - Final Complete Urine Catheterized Urine NO GROWTH IN 48 HOURS. Imaging Last Impressions Chest X-Ray 09/15/16 1621 Signed Impressions: Service Date/Time: Thursday, September 15, 2016 16:33 - CONCLUSION: 1. Uncomplicated line placement. No evidence of pneumothorax. Wesley Chaudhari MD Head CT 09/15/16 0000 Signed Impressions: Service Date/Time: Thursday, September 15, 2016 10:15 - CONCLUSION: 1. Sizable area of decreased attenuation in the left MCA distribution most consistent with subacute cortical infarct. This there is stable compared to previous MR dated 09/09/16. Sanket Gonzalez MD Central Venous Line 3/1/17 0000 Signed Impressions: Service Date/Time: Thursday, September 15, 2016 00:00 - CONCLUSION: Uncomplicated line placement as above. Wesley Chaudhari MD Abdomen/Pelvis CT 09/15/16 0000 Signed Impressions: Service Date/Time: Thursday, September 15, 2016 17:00 - CONCLUSION: 1. Gaseous distension of the stomach. 2. I do not see evidence for significant colitis. Lowell Gonzalez MD FACR Catheter Placement X-Ray 09/14/16 Signed Impressions: Service Date/Time: Wednesday, September 14, 2016 00:00 - CONCLUSION: Uncomplicated line placement as above. Wesley Chaudhari MD Carotid Artery Ultrasound 09/13/16 0000 Signed Impressions: Service Date/Time: Tuesday, September 13, 2016 16:46 - CONCLUSION: Significant plaque remains evident in the carotid bifurcations. Poor visualization and difficulty velocity sampling of the proximal internal carotid arteries was again encountered. Significant carotid stenosis cannot be excluded. Nonvisualization of the vertebral arteries. Mack Brizuela MD Brain MRI 09/09/16 0000 Signed Impressions: Service Date/Time: August 16:36 - CONCLUSION: 1. Findings demonstrate an acute infarction in the left sylvian region, nonhemorrhagic. 2. Small air-fluid level right maxillary sinus and mild bilateral ethmoid sinus disease. Suresh Diaz MD Renal Ultrasound 09/08/16 0000 Signed Impressions: Service Date/Time: Thursday, September 08, 2016 16:04 - CONCLUSION: Large 6.3 cm cyst lower pole laterally left kidney. No evidence of hydronephrosis or obstructive uropathy.. Christian Cooper MD Physical Exam HEENT: Normocephalic; atraumatic; no jaundice. NECK: Supple. CHEST: CTA, OETT to vent CARDIAC: RRR ABDOMEN: Soft, nondistended, nontender; no hepatosplenomegaly; bowel sounds are present in all four quadrants. OGT with bilious material EXTREMITIES: Generalized edema. SKIN: Normal; no rash; no jaundice. 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 Patient with known history of coronary artery disease and a recent CABG who also apparently had recent CVA, currently intubated patient also appears to be septic and hypotensive on vasopressors. Poor prognosis. Palliative care following, family to arrive on 09/18 and will decide on goals of care at that time. Will await for their decision prior to scheduling for PEG tube. - Gaseous distention of stomach. OGT to LIWS, bilious material. PLAN: - NPO - OGT to LIWS - KUB in am - If tomorrow's KUB okay, will clamp and start feedings if tolerates - Await family's decision on 09/18 prior to scheduling PEG tube placement. - Pt seen and examined by Dr. Kent and myself and this note is written on his behalf (Elidia Black) Physician Comments Patient seen and examined Agree with above Continue with current supportive care Monitor labs Await family decision (Rangel Kent MD) Elidia Black Sep 16, 2016 15:23 Rangel Kent MD Sep 16, 2016 19:16
--- NOTE | 2016-09-16 15:55 | HHI.IDPN ---
Subjective Subjective Remarks Mr. Ferguson is a 66 y/o male with a medical history of CAD status post 6 vessel CABG in 2012, CHF, CAD, hypertension, diabetes mellitus type 2, obesity, and sleep apnea. On 09/07/16, patient underwent cardiac catheterization , he was found to have significant blockage requiring angioplasty and stenting. Post cardiac catheter, patient developed aphasia and right sided hemiparesis. CT of the brain show no acute process. Neurology -Dr. Nguyen consulted. Brain MRI obtained on 09/09/16 showing acute nonhemorrhagic infarction in the left sylvian region. Patient developed respiratory distress and was placed on BiPAP , subsequently intubated and placed on mechanical ventilation. Patient was being treated for aspiration Pneumonia. Overnight intubated for airway protection. Infectious disease following for septic shock, aspiration Pneumonia, possible C. difficile colitis. Overnight events reviewed Fevers 101 F overnight No rash 1000 ml liquid stool. Antibiotics Meropenem IV Flagyl IV Vanco oral. Lines Line sites with no e/o infection Past Medical History reviewed Allergies: Coded Allergies: No Known Allergies (Verified , 09/07/16) Objective . Vital Signs Date Time Temp Pulse Resp B/P Pulse Ox O2 Delivery O2 Flow Rate FiO2 09/16/16 11:00 100 40 09/16/16 07:53 100 40 09/16/16 06:00 92 09/16/16 04:03 100 40 09/16/16 04:00 95 09/16/16 04:00 103.4 95 23 101/68 09/16/16 02:00 117 09/16/16 01:02 98 40 09/16/16 00:00 102.0 99 22 125/80 96 09/16/16 00:00 99 09/15/16 22:29 97 40 09/15/16 22:00 108 09/15/16 20:17 100 40 09/15/16 20:00 100.7 91 21 113/59 100 09/15/16 20:00 86 09/15/16 18:00 92 09/15/16 17:30 100 100 09/15/16 16:00 99.6 108 24 128/64 99 09/15/16 16:00 98 Mechanical Ventilator 09/15/16 16:00 89 09/15/16 09/15/16 09/16/16 15:00 23:00 07:00 Intake Total 1842 ml 1124 ml 915 ml Output Total 660 ml 990 ml 320 ml Balance 1182 ml 134 ml 595 ml IV Total 1842 ml 1064 ml 855 ml Tube Irrigant 60 ml 60 ml Output Urine Total 10 ml 40 ml 20 ml Stool Total 800 ml 200 ml Gastric Drainage Total 150 ml 150 ml 100 ml Hemodialysis 500 ml . Laboratory Tests Test 09/15/16 09/16/16 04:05 05:05 White Blood Count 19.6 TH/MM3 20.1 TH/MM3 Red Blood Count 4.52 MIL/MM3 4.05 MIL/MM3 Hemoglobin 13.6 GM/DL 12.1 GM/DL Hematocrit 41.6 % 36.5 % Mean Corpuscular Volume 92.1 FL 90.3 FL Mean Corpuscular Hemoglobin 30.1 PG 29.8 PG Mean Corpuscular Hemoglobin 32.7 % 33.0 % Concent Red Cell Distribution Width 15.5 % 15.5 % Platelet Count 365 TH/MM3 298 TH/MM3 Mean Platelet Volume 8.9 FL 8.9 FL Neutrophils (%) (Auto) 78.7 % 79.2 % Lymphocytes (%) (Auto) 4.1 % 9.0 % Monocytes (%) (Auto) 16.5 % 9.6 % Eosinophils (%) (Auto) 0.6 % 1.8 % Basophils (%) (Auto) 0.1 % 0.4 % Neutrophils # (Auto) 15.4 TH/MM3 15.9 TH/MM3 Lymphocytes # (Auto) 0.8 TH/MM3 1.8 TH/MM3 Monocytes # (Auto) 3.2 TH/MM3 1.9 TH/MM3 Eosinophils # (Auto) 0.1 TH/MM3 0.4 TH/MM3 Basophils # (Auto) 0.0 TH/MM3 0.1 TH/MM3 CBC Comment AUTO DIFF DIFF FINAL Differential Comment AUTO DIFF CONFIRMED Platelet Estimate NORMAL Platelet Morphology Comment NORMAL Laboratory Tests Test 09/15/16 09/15/16 09/16/16 04:05 21:37 05:05 Sodium Level 142 MEQ/L 139 MEQ/L Potassium Level 4.6 MEQ/L 3.8 MEQ/L Chloride Level 98 MEQ/L 100 MEQ/L Carbon Dioxide Level 26.6 MEQ/L 23.5 MEQ/L Anion Gap 17 MEQ/L 16 MEQ/L Blood Urea Nitrogen 84 MG/DL 77 MG/DL Creatinine 8.94 MG/DL 8.48 MG/DL Estimat Glomerular Filtration 6 ML/MIN 6 ML/MIN Rate Random Glucose 273 MG/DL 260 MG/DL Calcium Level 9.3 MG/DL 8.8 MG/DL Phosphorus Level 5.7 MG/DL Lactic Acid Level 1.5 mmol/L Microbiology Date/Time Procedure Status Source Growth 09/14/16 08:45 Urine Culture - Final Complete Urine Catheterized Urine NO GROWTH IN 48 HOURS. 09/14/16 10:55 Aerobic Blood Culture - Preliminary Resulted Blood Peripheral NO GROWTH IN 2 DAYS 09/14/16 10:55 Anaerobic Blood Culture - Preliminary Resulted Blood Peripheral NO GROWTH IN 2 DAYS 09/14/16 11:01 Aerobic Blood Culture - Preliminary Resulted Blood Peripheral NO GROWTH IN 2 DAYS 09/14/16 11:01 Anaerobic Blood Culture - Preliminary Resulted Blood Peripheral NO GROWTH IN 2 DAYS 09/15/16 21:30 Aerobic Blood Culture - Preliminary Resulted Blood Other NO GROWTH IN 1 DAY 09/15/16 21:30 Anaerobic Blood Culture - Preliminary Resulted Blood Other NO GROWTH IN 1 DAY 09/15/16 21:37 Aerobic Blood Culture - Preliminary Resulted Blood Other NO GROWTH IN 1 DAY 09/15/16 21:37 Anaerobic Blood Culture - Preliminary Resulted Blood Other NO GROWTH IN 1 DAY 09/16/16 01:45 Urine Culture Received Urine Catheterized Urine Pending Imaging Last Impressions Chest X-Ray 09/15/16 1621 Signed Impressions: Service Date/Time: Thursday, September 15, 2016 16:33 - CONCLUSION: 1. Uncomplicated line placement. No evidence of pneumothorax. Wesley Chaudhari MD Head CT 09/15/16 0000 Signed Impressions: Service Date/Time: Thursday, September 15, 2016 10:15 - CONCLUSION: 1. Sizable area of decreased attenuation in the left MCA distribution most consistent with subacute cortical infarct. This there is stable compared to previous MR dated 09/09/16. Sanket Gonzalez MD Central Venous Line 09/15/16 0000 Signed Impressions: Service Date/Time: Thursday, September 15, 2016 00:00 - CONCLUSION: Uncomplicated line placement as above. Wesley Chaudhari MD Abdomen/Pelvis CT 09/15/16 0000 Signed Impressions: Service Date/Time: Thursday, September 15, 2016 17:00 - CONCLUSION: 1. Gaseous distension of the stomach. 2. I do not see evidence for significant colitis. Lowell Gonzalez MD FACR Catheter Placement X-Ray 09/14/16 0000 Signed Impressions: Service Date/Time: Wednesday, September 14, 2016 00:00 - CONCLUSION: Uncomplicated line placement as above. Wesley Chaudhari MD Carotid Artery Ultrasound 09/13/16 0000 Signed Impressions: Service Date/Time: Tuesday, September 13, 2016 16:46 - CONCLUSION: Significant plaque remains evident in the carotid bifurcations. Poor visualization and difficulty velocity sampling of the proximal internal carotid arteries was again encountered. Significant carotid stenosis cannot be excluded. Nonvisualization of the vertebral arteries. Mack Brizuela MD Brain MRI 09/09/16 0000 Signed Impressions: Service Date/Time: August 16:36 - CONCLUSION: 1. Findings demonstrate an acute infarction in the left sylvian region, nonhemorrhagic. 2. Small air-fluid level right maxillary sinus and mild bilateral ethmoid sinus disease. Suresh Diaz MD Renal Ultrasound 09/08/16 0000 Signed Impressions: Service Date/Time: Thursday, September 08, 2016 16:04 - CONCLUSION: Large 6.3 cm cyst lower pole laterally left kidney. No evidence of hydronephrosis or obstructive uropathy.. Christian Cooper MD Physical Exam GENERAL: Obese male patient, in no apparent distress. SKIN: No rashes, ecchymoses or lesions. Cool and dry. HEAD: Atraumatic. Normocephalic. No temporal or scalp tenderness. EYES: Pupils equal round and reactive. Extraocular motions intact. No scleral icterus. No injection or drainage. ENT: Intubated. Throat without erythema, tonsillar hypertrophy or exudate. Uvula midline. Airway patent. NECK: Trachea midline. Supple, nontender, no meningeal signs. CARDIOVASCULAR: Heart sounds audible. RESPIRATORY: Clear to auscultation. Breath sounds equal bilaterally. GASTROINTESTINAL: Abdomen soft, non-tender, nondistended. MUSCULOSKELETAL: Extremities without clubbing, cyanosis, or edema. NEUROLOGICAL: Not on any sedation but unresponsive. Not moving any extremities for me. No response to deep painful stimuli. Psych did not be assessed IV line sites with no evidence of infection. Assessment & Plan Remarks Septic shock with multiorgan dysfunction syndrome Aspiration Pneumonia Cl diff colitis (CT can have no evidence in initial stages of Cdiff Colitis) Other sources looked at: CXR negative, UA no growth at 24 hrs, Central line infection but blood cultures negative Ileus vs Gaseous distention of stomach: tube feeds on airway suctioning. Acute resp failure on vent. Acute metabolic encephalopathy: stroke, sepsis, metabolic. Acute renal failure: meds, sepsis, ATN on HD now. CAD, [place] Acute stroke Recs Continue Vanco oral for Cdiff Continue Flagyl IV for Cdiff Continue Micafungin IV Continue Meropenem IV (ASP: worsening sepsis on Zosyn IV) Sputum cultures today Start Zyvox IV (possible MRSA pneumonia will deescalate) Follow cultures Follow clinically nura Brush. Era Becker MD Sep 16, 2016 15:55
--- NOTE | 2016-09-16 17:52 | PD.CARD.PN ---
Subjective Subjective Remarks Intubated, sedated Objective Medications Current Medications Medications (Trade) Dose Ordered Sig/Eric Route Start Time Stop Time Status Last Admin (Ecotrin Ec) 81 mg DAILY PO 09/08/16 09:00 09/15/16 08:11 (Lipitor) 40 mg HS PO 09/07/16 21:30 09/15/16 21:04 (Plavix) 75 mg DAILY PO 09/08/16 09:00 09/16/16 09:21 (Imdur) 60 mg DAILY@07 PO 09/08/16 07:00 Hold 09/14/16 04:48 (NS Flush) 2 ml UNSCH PRN IV FLUSH 09/07/16 21:30 09/14/16 23:58 (NS Flush) 2 ml BID IV FLUSH 09/08/16 09:00 09/16/16 09:19 (Morphine Inj) 2 mg Q2H PRN IV 09/07/16 21:30 09/14/16 23:57 (Ativan Inj) 0.5 mg Q2HR PRN IV 09/07/16 21:30 09/14/16 23:57 (Zofran Inj) 4 mg Q6H PRN IV 09/07/16 21:30 09/08/16 22:00 (Reglan Inj) 5 mg Q6H PRN IV 09/07/16 21:30 Miscellaneous Information 1 Q361D XX 09/07/16 21:30 (Chlorhexidine 2% Cloth) Taper DAILY@04 TOP 09/08/16 04:00 09/04/17 03:59 09/16/16 04:00 (Chlorhexidine 2% Cloth) 3 pack UNSCH PRN TOP 09/07/16 21:30 (Apresoline Inj) 20 mg Q4H PRN IV PUSH 09/08/16 04:30 09/13/16 21:29 (D50w (Vial) Inj) 25 ml UNSCH PRN IV PUSH 09/08/16 12:45 (Glucagon Inj) 1 mg UNSCH PRN OTHER 09/08/16 12:45 (NovoLIN R SUPPLEMENTAL SCALE) 1 Q4H SQ 09/08/16 13:00 09/16/16 12:54 (Lopressor) 50 mg Q8H PO 09/09/16 14:00 Hold 09/14/16 20:56 (Heparin Inj) 5,000 units Q12HR SQ 09/09/16 09:00 09/16/16 09:20 (Lacrilube Opht Oint) 1 applic BID EACH EYE 09/09/16 21:00 09/16/16 09:19 (Peridex 0.12% Liq) 15 ml BID@08,20 MT 09/10/16 20:00 09/16/16 09:19 Docusate Sodium 100 mg 100 mg BID PO 09/11/16 10:00 09/16/16 09:21 (NS 1000 ml Inj) 1,000 ml @ 5 mls/hr Q24H IV 09/13/16 11:00 09/15/16 09:07 (Protonix Inj) 40 mg Q12H IV PUSH 09/13/16 20:00 09/16/16 09:20 Heparin Sodium (Porcine) 8000 units 8,000 units UNSCH PRN IVF 09/14/16 11:00 (NS 1000 ml Inj) 1,000 ml @ 0 mls/hr Q0M PRN IV 09/14/16 10:48 (Mannitol Inj) 12.5 gm UNSCH PRN IV 09/14/16 11:00 09/15/16 05:33 (Albumin 25% Inj) 25 gm UNSCH PRN IV 09/14/16 11:00 09/15/16 05:34 (NS Flush) 5 ml UNSCH PRN IVF 09/14/16 11:00 09/14/16 16:35 (Heparin Inj) UNSCH PRN .XX 09/14/16 11:00 09/14/16 16:37 (Gentamicin (Dialysis) Inj) 20 mg UNSCH PRN IV 09/14/16 11:00 09/14/16 16:36 (Zofran Inj) 4 mg UNSCH PRN IV 09/14/16 11:00 (Benadryl) 25 mg UNSCH PRN PO 09/14/16 11:00 (Nitrostat Sl) 0.4 mg UNSCH PRN SL 09/14/16 11:00 (Catapres) 0.1 mg UNSCH PRN PO 09/14/16 11:00 (Gelfoam 12 Mm/7 Mm Top) 1 foam UNSCH PRN TOP 09/14/16 11:00 (NS Flush) UNSCH PRN IVF 09/14/16 16:00 Heparin Sodium (Porcine) UNSCH PRN IVF 09/14/16 16:00 Amiodarone HCl 450 mg/Dextrose 250 ml @ 0 mls/hr CONTINUOUS IV 09/15/16 01:15 (Neosynephrine Inj/D5W 500 ml Inj) 500 ml @ 0 mls/hr TITRATE IV 09/15/16 10:00 09/16/16 11:46 Terbutaline Sulfate 1 mg 1 mg UNSCH PRN SQ 09/15/16 09:00 Propofol 100 ml @ 0 mls/hr TITRATE IV 09/15/16 13:45 (Flagyl 500 Mg Inj) 100 ml @ 100 mls/hr Q8H IV 09/15/16 15:00 09/16/16 06:58 (VANCOMYCIN for oral use only) 125 mg QID PO 09/15/16 18:00 09/16/16 12:54 (NS Flush) DAILY IVF 09/16/16 09:00 09/16/16 09:19 IV Flush UNSCH PRN IVF 09/15/16 16:45 Micafungin Sodium 150 mg/Sodium Chloride 100 ml @ 100 mls/hr Q24H IV 09/15/16 21:00 09/15/16 21:05 (Merrem Inj/NS Inj) 100 ml @ 200 mls/hr Q8H IV 09/15/16 20:00 09/16/16 11:47 Fentanyl Citrate 50 mcg 50 mcg Q1H PRN IV PUSH 09/15/16 23:30 (fentaNYL DRIP) 250 ml @ 0 mls/hr TITRATE IV 09/15/16 23:30 09/16/16 00:31 Acetaminophen 650 mg 650 mg Q6H PRN IV 09/16/16 01:45 (Zyvox 600 Mg Premix) 300 ml @ 300 mls/hr Q12H IV 09/16/16 16:00 Vital Signs / I&O Vital Signs Date Time Temp Pulse Resp B/P Pulse Ox O2 Delivery O2 Flow Rate FiO2 09/16/16 14:00 87 09/16/16 12:00 98.9 80 19 83/56 09/16/16 12:00 80 09/16/16 11:00 100 40 09/16/16 10:00 90 09/16/16 08:00 96 09/16/16 08:00 100.0 96 18 127/71 09/16/16 07:53 100 40 09/16/16 06:00 92 09/16/16 04:03 100 40 09/16/16 04:00 95 09/16/16 04:00 103.4 95 23 101/68 09/16/16 02:00 117 09/16/16 01:02 98 40 09/16/16 00:00 102.0 99 22 125/80 96 09/16/16 00:00 99 09/15/16 22:29 97 40 09/15/16 22:00 108 09/15/16 20:17 100 40 09/15/16 20:00 100.7 91 21 113/59 100 09/15/16 20:00 86 09/15/16 18:00 92 I/O 09/15/16 09/15/16 09/15/16 09/16/16 09/16/16 09/16/16 07:00 15:00 23:00 07:00 15:00 23:00 Intake Total 537 ml 1842 ml 1124 ml 915 ml 1489 ml Output Total 30 ml 660 ml 990 ml 320 ml 175 ml Balance 507 ml 1182 ml 134 ml 595 ml 1314 ml IV Total 237 ml 1842 ml 1064 ml 855 ml 1489 ml Tube Irrigant 60 ml 60 ml Other 300 ml Output Urine Total 30 ml 10 ml 40 ml 20 ml 75 ml Stool Total 800 ml 200 ml 100 ml Gastric Drainage Total 150 ml 150 ml 100 ml Hemodialysis 500 ml # Bowel Movements 1 Physical Exam GENERAL: Intubated, sedated SKIN: Warm and dry. HEAD: Normocephalic. Facial asymetry. EYES: No scleral icterus. No injection or drainage. NECK: Supple, trachea midline. No JVD or lymphadenopathy. CARDIOVASCULAR: Regular rate and rhythm without murmurs, gallops, or rubs. RESPIRATORY: Breath sounds equal bilaterally. No accessory muscle use. GASTROINTESTINAL: Abdomen soft, non-tender, nondistended, obese MUSCULOSKELETAL: No cyanosis, or edema. Groins stable. NEURO: aphasic Laboratory Laboratory Tests Test 09/15/16 09/16/16 09/16/16 21:37 01:45 05:05 Lactic Acid Level 1.5 mmol/L Urine Color YELLOW Urine Turbidity CLOUDY Urine pH 6.0 Urine Specific [place] 1.024 Urine Protein 300 mg/dL Urine Glucose (UA) 70 mg/dL Urine Ketones NEG mg/dL Urine Occult Blood MOD Urine Nitrite NEG Urine Bilirubin NEG Urine Urobilinogen LESS THAN 2.0 MG/DL Urine Leukocyte Esterase LARGE Urine RBC 90 /hpf Urine WBC 84 /hpf Urine WBC Clumps MANY Urine Squamous Epithelial 3 /hpf Cells Urine Amorphous Sediment RARE Urine Bacteria OCC /hpf Urine Granular Casts 44 /lpf Urine Waxy Casts 7 /lpf Urine Mucus FEW /lpf Microscopic Urinalysis Comment CATH-CULTURE IND White Blood Count 20.1 TH/MM3 Red Blood Count 4.05 MIL/MM3 Hemoglobin 12.1 GM/DL Hematocrit 36.5 % Mean Corpuscular Volume 90.3 FL Mean Corpuscular Hemoglobin 29.8 PG Mean Corpuscular Hemoglobin 33.0 % Concent Red Cell Distribution Width 15.5 % Platelet Count 298 TH/MM3 Mean Platelet Volume 8.9 FL Neutrophils (%) (Auto) 79.2 % Lymphocytes (%) (Auto) 9.0 % Monocytes (%) (Auto) 9.6 % Eosinophils (%) (Auto) 1.8 % Basophils (%) (Auto) 0.4 % Neutrophils # (Auto) 15.9 TH/MM3 Lymphocytes # (Auto) 1.8 TH/MM3 Monocytes # (Auto) 1.9 TH/MM3 Eosinophils # (Auto) 0.4 TH/MM3 Basophils # (Auto) 0.1 TH/MM3 CBC Comment DIFF FINAL Differential Comment Sodium Level 139 MEQ/L Potassium Level 3.8 MEQ/L Chloride Level 100 MEQ/L Carbon Dioxide Level 23.5 MEQ/L Anion Gap 16 MEQ/L Blood Urea Nitrogen 77 MG/DL Creatinine 8.48 MG/DL Estimat Glomerular Filtration 6 ML/MIN Rate Random Glucose 260 MG/DL Calcium Level 8.8 MG/DL Imaging Last Impressions Chest X-Ray 09/15/16 1621 Signed Impressions: Service Date/Time: Thursday, September 15, 2016 16:33 - CONCLUSION: 1. Uncomplicated line placement. No evidence of pneumothorax. Wesley Cahudhari MD Head CT 09/15/16 0000 Signed Impressions: Service Date/Time: Thursday, September 15, 2016 10:15 - CONCLUSION: 1. Sizable area of decreased attenuation in the left MCA distribution most consistent with subacute cortical infarct. This there is stable compared to previous MR dated 09/09/16. Sanket Gonzalez MD Central Venous Line 09/15/16 0000 Signed Impressions: Service Date/Time: Thursday, September 15, 2016 00:00 - CONCLUSION: Uncomplicated line placement as above. Wesley Chaudhari MD Abdomen/Pelvis CT 09/15/16 0000 Signed Impressions: Service Date/Time: Thursday, September 15, 2016 17:00 - CONCLUSION: 1. Gaseous distension of the stomach. 2. I do not see evidence for significant colitis. Lowell Gonzalez MD FACR Catheter Placement X-Ray 09/14/16 0000 Signed Impressions: Service Date/Time: Wednesday, September 14, 2016 00:00 - CONCLUSION: Uncomplicated line placement as above. Wesley Chaudhari MD Carotid Artery Ultrasound 09/13/16 0000 Signed Impressions: Service Date/Time: Tuesday, September 13, 2016 16:46 - CONCLUSION: Significant plaque remains evident in the carotid bifurcations. Poor visualization and difficulty velocity sampling of the proximal internal carotid arteries was again encountered. Significant carotid stenosis cannot be excluded. Nonvisualization of the vertebral arteries. Mack Brizuela MD Brain MRI 09/09/16 0000 Signed Impressions: Service Date/Time: August 16:36 - CONCLUSION: 1. Findings demonstrate an acute infarction in the left sylvian region, nonhemorrhagic. 2. Small air-fluid level right maxillary sinus and mild bilateral ethmoid sinus disease. Suresh Diaz MD Renal Ultrasound 09/08/16 0000 Signed Impressions: Service Date/Time: Thursday, September 08, 2016 16:04 - CONCLUSION: Large 6.3 cm cyst lower pole laterally left kidney. No evidence of hydronephrosis or obstructive uropathy.. Christian Cooper MD Assessment and Plan Problem List: (1) Unstable angina (2) CAD (coronary artery disease) of bypass graft (3) CHF (congestive heart failure), NYHA class II (4) Cardiomyopathy, ischemic (5) Chronic kidney disease (6) Suspected cerebrovascular accident (7) Abnormal nuclear stress test Assessment and Plan Continue ICU monitoring. Wean vent as tolerated. Continue Plavix and ASA per NG to prevent stent thrombosis. BP controlled. Neurology evaluation and management for CVA confirmed by MRI. No evidence of ICH on head CT. Groins remain stable. Renal fx worse, now on dialysis. MS not improving, likely multifactorial. D/w pt 's son and grandson. Problem Qualifiers (1) Chronic kidney disease: Qualified Code: N18.4 - Chronic kidney disease, stage 4 (severe) Martha Cummins MD Sep 16, 2016 17:52
[2016-09-16] MEDS: LINEZOLID 600 MG PREMIX 300 ML IV SCH (17:54)
[2016-09-16] MEDS: ATORVASTATIN 40 MG TAB PO SCH (20:09)
[2016-09-16] MEDS: SODIUM CHLOR 0.9% 1000 ML INJ 1,000 ML IV SCH (20:10)
[2016-09-16] MEDS: MICAFUNGIN INJ 150 MG in SODIUM CHLORIDE 0.9% INJ 100 ML IV SCH (20:58)
[2016-09-17] VITALS (19 sets, daily range): BP systolic 100–131; BP diastolic 57–77; PULSE 18–98; RESP 18–22; TEMP 99.1–101.8; O2SAT 88–100
[2016-09-17] MEDS: INSULIN NovoLIN REGULAR SUPPLEMENTAL SCALE SQ SCH ×5 (02:10→21:00)
[2016-09-17] MEDS: RESP: ALBUTEROL 2.5 MG/IPRATROPIUM 0.5 MG NEB (SCH) NEB (03:29)
[2016-09-17] MEDS: CHLORHEXIDINE GLUCONATE 2 % 1 PACK (2 CLOTHS) TOP SCH (04:00)
[2016-09-17] MEDS: LINEZOLID 600 MG PREMIX 300 ML IV SCH ×2 (04:04→17:47)
[2016-09-17] MEDS: MEROPENEM INJ 500 MG in SODIUM CHLORIDE 0.9% INJ 100 ML IV SCH ×3 (04:04→22:23)
[2016-09-17] MEDS: PHENYLEPHRINE INJ 40 MG in DEXTROSE 5% IN WATE 500 ML INJ 496 ML IV SCH ×6 (05:20→22:23)
[2016-09-17 05:28] LABS: AUTOMATED NEUTROPHIL # 19.3 TH/MM3 (1.8-7.7); BASOPHIL # 0.1 TH/MM3 (0-0.2); BASOPHIL % 0.2 % (0.0-2.0); EOSINOPHIL # 0.5 TH/MM3 (0-0.4); HEMATOCRIT 34.2 % (39.0-51.0); HEMO FLAGS DIFF FINAL; LYMPH % 4.8 % (9.0-44.0); LYMPHOCYTE # 1.1 TH/MM3 (1.0-4.8); MEAN CELL VOLUME 89.5 FL (80.0-100.0); MEAN CORPUSCULAR HEMOGLOBIN 29.3 PG (27.0-34.0); MEAN CORPUSCULAR HGB CONC 32.7 % (32.0-36.0); MONO % 8.9 % (0.0-8.0); NEUT % 84.1 % (16.0-70.0); PLATELET COUNT 252 TH/MM3 (150-450); RED BLOOD COUNT 3.82 MIL/MM3 (4.50-5.90); RED CELL DISTRIBUTION WIDTH 15.6 % (11.6-17.2); WHITE BLOOD COUNT 22.9 TH/MM3 (4.0-11.0)
[2016-09-17 05:53] LABS: ALKALINE PHOSPHATASE 65 U/L (45-117); ALT (GPT) 1526 U/L (12-78); ANION GAP 17 MEQ/L (5-15); AST (GOT) 1122 U/L (15-37); BICARBONATE 21.4 MEQ/L (21.0-32.0); BLOOD UREA NITROGEN 87 MG/DL (7-18); CHLORIDE 96 MEQ/L (98-107); GLOMERULAR FILTRATION RATE 5 ML/MIN (>89); POTASSIUM 3.7 MEQ/L (3.5-5.1); SODIUM (NA) 134 MEQ/L (136-145); TOTAL BILIRUBIN ADULT 0.6 MG/DL (0.2-1.0)
[2016-09-17] MEDS: metroNIDAZOLE 500 MG INJ 100 ML IV SCH (06:46)
--- NOTE | 2016-09-17 06:50 | RADRPT ---
EXAM DATE/TIME: 09/17/2016 05:05 [place] COMPARISON: No previous studies available for comparison. INDICATIONS : Distention. MEDICAL HISTORY : Hypertension. Cardiovascular disease. SURGICAL HISTORY : None. ENCOUNTER: Subsequent ACUITY: 1 week PAIN SCORE: Non-responsive. LOCATION: abdomen, all quadrants. FINDINGS: Gas is present occasional nondilated bowel loops. Suspicious calcific densities. There are degenerati ve changes in the spine and hips. CONCLUSION: Nonspecific abdomen appearance. Michael Ross MD on September 17, 2016 at 6:48 Board Certified Radiologist. This report was verified electronically.
[2016-09-17] MEDS: DOCUSATE SODIUM 100 MG/10 ML UDC PO SCH ×2 (08:19→20:41)
[2016-09-17] MEDS: ASPIRIN EC 81 MG TABEC PO SCH (08:20)
[2016-09-17] MEDS: CLOPIDOGREL 75 MG TAB PO SCH (08:20)
[2016-09-17] MEDS: HEPARIN SODIUM - SQ 10,000 UNITS/ML VIAL SQ SCH ×2 (08:20→20:42)
[2016-09-17] MEDS: VANCOMYCIN 500 MG VIAL (FOR ORAL USE ONLY) PO SCH ×4 (08:20→21:00)
[2016-09-17] MEDS: SODIUM CHLORIDE 0.9% FLUSH 5 ML FLUSH IVF SCH (08:22)
[2016-09-17] MEDS: SODIUM CHLORIDE 0.9% FLUSH 5 ML FLUSH IV FLUSH SCH ×2 (08:22→23:22)
[2016-09-17] MEDS: CHLORHEXIDINE 0.12% (ORAL KIT) 15 ML CUP MT SCH ×2 (08:25→23:21)
[2016-09-17] MEDS: PANTOPRAZOLE SODIUM 40 MG VIAL IV PUSH SCH ×2 (08:26→20:42)
[2016-09-17] MEDS: SODIUM CHLOR 0.9% 1000 ML INJ 1,000 ML IV SCH (08:56)
[2016-09-17] MEDS: ALBUMIN HUMAN 25% 25 GM/100 ML BAGP IV PRN ×2 (08:57→08:58)
[2016-09-17] MEDS: SODIUM CHLORIDE 0.9% FLUSH 5 ML FLUSH IVF PRN (08:57)
[2016-09-17] MEDS: MANNITOL 12.5 GM/50 ML VIAL IV PRN ×2 (08:57→08:58)
[2016-09-17] MEDS: SODIUM CHLOR 0.9% 1000 ML INJ 1,000 ML IV PRN (08:57)
[2016-09-17] MEDS: ARTIFICIAL TEARS OPTH OINT 3.5 APPLIC/3.5 GM TUBO EACH EYE SCH ×2 (09:00→22:22)
--- NOTE | 2016-09-17 09:00 | HHI.PR ---
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 neuro status little less agitated and still neglecting right side and moves left much better retry carotid us I wonder if stroke is from cardio embolism and if cardio feels relatively high risk for cardio embolism then anticoagulation might be in his best 09/15 less responsive, no sedation will obtaain ct brain f/u as he should be improving from neuro standpoint ??adtl infarct, hemorrhagic stroke transformation 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 09/17 discussed with RN neuro basically unchanged repeat/follow up ct 2 days ago seen, no new neuro findings extension of continuing care being discussed between family and palliative care team, will monitor Subjective Subjective Comments No acute neuro events reported Active Medications Current Medications Medications (Trade) Dose Ordered Sig/Eric Route Start Time Stop Time Status Last Admin (Ecotrin Ec) 81 mg DAILY PO 09/08/16 09:00 09/15/16 08:11 (Lipitor) 40 mg HS PO 09/07/16 21:30 09/16/16 20:09 (Plavix) 75 mg DAILY PO 09/08/16 09:00 09/17/16 08:20 (Imdur) 60 mg DAILY@07 PO 09/08/16 07:00 Hold 09/14/16 04:48 (NS Flush) 2 ml UNSCH PRN IV FLUSH 09/07/16 21:30 09/14/16 23:58 (NS Flush) 2 ml BID IV FLUSH 09/08/16 09:00 09/17/16 08:22 (Morphine Inj) 2 mg Q2H PRN IV 09/07/16 21:30 09/14/16 23:57 (Ativan Inj) 0.5 mg Q2HR PRN IV 09/07/16 21:30 09/14/16 23:57 (Zofran Inj) 4 mg Q6H PRN IV 09/07/16 21:30 09/08/16 22:00 (Reglan Inj) 5 mg Q6H PRN IV 09/07/16 21:30 09/16/16 17:54 Miscellaneous Information 1 Q361D XX 09/07/16 21:30 (Chlorhexidine 2% Cloth) Taper DAILY@04 TOP 09/08/16 04:00 09/04/17 03:59 09/17/16 04:00 (Chlorhexidine 2% Cloth) 3 pack UNSCH PRN TOP 09/07/16 21:30 (Apresoline Inj) 20 mg Q4H PRN IV PUSH 09/08/16 04:30 09/13/16 21:29 (D50w (Vial) Inj) 25 ml UNSCH PRN IV PUSH 09/08/16 12:45 (Glucagon Inj) 1 mg UNSCH PRN OTHER 09/08/16 12:45 (NovoLIN R SUPPLEMENTAL SCALE) 1 Q4H SQ 09/08/16 13:00 09/17/16 08:20 (Lopressor) 50 mg Q8H PO 09/09/16 14:00 Hold 09/14/16 20:56 (Heparin Inj) 5,000 units Q12HR SQ 09/09/16 09:00 09/17/16 08:20 (Lacrilube Opht Oint) 1 applic BID EACH EYE 09/09/16 21:00 09/16/16 20:17 (Peridex 0.12% Liq) 15 ml BID@08,20 MT 09/10/16 20:00 09/17/16 08:25 Docusate Sodium 100 mg 100 mg BID PO 09/11/16 10:00 09/17/16 08:19 (NS 1000 ml Inj) 1,000 ml @ 5 mls/hr Q24H IV 09/13/16 11:00 09/16/16 20:10 (Protonix Inj) 40 mg Q12H IV PUSH 09/13/16 20:00 09/17/16 08:26 Heparin Sodium (Porcine) 8000 units 8,000 units UNSCH PRN IVF 09/14/16 11:00 (NS 1000 ml Inj) 1,000 ml @ 0 mls/hr Q0M PRN IV 09/14/16 10:48 (Mannitol Inj) 12.5 gm UNSCH PRN IV 09/14/16 11:00 09/15/16 05:33 (Albumin 25% Inj) 25 gm UNSCH PRN IV 09/14/16 11:00 09/15/16 05:34 (NS Flush) 5 ml UNSCH PRN IVF 09/14/16 11:00 09/14/16 16:35 (Heparin Inj) UNSCH PRN .XX 09/14/16 11:00 09/14/16 16:37 (Gentamicin (Dialysis) Inj) 20 mg UNSCH PRN IV 09/14/16 11:00 09/14/16 16:36 (Zofran Inj) 4 mg UNSCH PRN IV 09/14/16 11:00 (Benadryl) 25 mg UNSCH PRN PO 09/14/16 11:00 (Nitrostat Sl) 0.4 mg UNSCH PRN SL 09/14/16 11:00 (Catapres) 0.1 mg UNSCH PRN PO 09/14/16 11:00 (Gelfoam 12 Mm/7 Mm Top) 1 foam UNSCH PRN TOP 09/14/16 11:00 (NS Flush) UNSCH PRN IVF 09/14/16 16:00 Heparin Sodium (Porcine) UNSCH PRN IVF 09/14/16 16:00 Amiodarone HCl 450 mg/Dextrose 250 ml @ 0 mls/hr CONTINUOUS IV 09/15/16 01:15 (Neosynephrine Inj/D5W 500 ml Inj) 500 ml @ 0 mls/hr TITRATE IV 09/15/16 10:00 09/17/16 05:20 Terbutaline Sulfate 1 mg 1 mg UNSCH PRN SQ 09/15/16 09:00 Propofol 100 ml @ 0 mls/hr TITRATE IV 09/15/16 13:45 (Flagyl 500 Mg Inj) 100 ml @ 100 mls/hr Q8H IV 09/15/16 15:00 09/17/16 06:46 (VANCOMYCIN for oral use only) 125 mg QID PO 09/15/16 18:00 09/17/16 08:20 (NS Flush) DAILY IVF 09/16/16 09:00 09/17/16 08:22 IV Flush UNSCH PRN IVF 09/15/16 16:45 Micafungin Sodium 150 mg/Sodium Chloride 100 ml @ 100 mls/hr Q24H IV 09/15/16 21:00 09/16/16 20:58 (Merrem Inj/NS Inj) 100 ml @ 200 mls/hr Q8H IV 09/15/16 20:00 09/17/16 04:04 Fentanyl Citrate 50 mcg 50 mcg Q1H PRN IV PUSH 09/15/16 23:30 (fentaNYL DRIP) 250 ml @ 0 mls/hr TITRATE IV 09/15/16 23:30 09/16/16 00:31 Acetaminophen 650 mg 650 mg Q6H PRN IV 09/16/16 01:45 (Zyvox 600 Mg Premix) 300 ml @ 300 mls/hr Q12H IV 09/16/16 16:00 09/17/16 04:04 Allergies Allergies Coded Allergies No Known Allergies (Verified09/07/16) Exam I&O / VS 09/16/16 09/16/16 09/17/16 14:59 22:59 06:59 Intake Total 1489 ml 1055 ml 1030 ml Output Total 175 ml 270 ml 720 ml Balance 1314 ml 785 ml 310 ml IV Total 1489 ml 995 ml 970 ml Tube Irrigant 60 ml 60 ml Output Urine Total 75 ml 20 ml 20 ml Stool Total 100 ml 100 ml 400 ml Gastric Drainage Total 150 ml 300 ml Vital Signs Date Time Temp Pulse Resp B/P Pulse Ox O2 Delivery O2 Flow Rate FiO2 09/17/16 07:38 98 40 09/17/16 06:00 83 09/17/16 04:07 100 40 09/17/16 04:00 101.8 18 18 126/57 100 09/17/16 04:00 87 09/17/16 02:00 85 09/17/16 01:06 100 40 09/17/16 00:00 101.3 86 22 103/60 100 09/17/16 00:00 86 09/16/16 22:03 100 40 09/16/16 22:00 83 09/16/16 20:00 100.5 80 18 145/72 100 09/16/16 20:00 80 09/16/16 19:16 100 40 09/16/16 18:00 90 09/16/16 16:00 100.0 90 19 103/58 09/16/16 16:00 90 09/16/16 14:00 87 09/16/16 12:00 98.9 80 19 83/56 09/16/16 12:00 80 09/16/16 11:00 100 40 09/16/16 10:00 90 Objective Radiology Results Laboratory Tests Test 09/15/16 09/15/16 09/15/16 09/16/16 04:05 09:55 13:45 01:45 White Blood Count 19.6 TH/MM3 (4.0-11.0) Neutrophils (%) (Auto) 78.7 % (16.0-70.0) Lymphocytes (%) (Auto) 4.1 % (9.0-44.0) Monocytes (%) (Auto) 16.5 % (0.0-8.0) Neutrophils # (Auto) 15.4 TH/MM3 (1.8-7.7) Lymphocytes # (Auto) 0.8 TH/MM3 (1.0-4.8) Monocytes # (Auto) 3.2 TH/MM3 (0-0.9) Prothrombin Time 14.2 SEC (9.8-11.6) Anion Gap 17 MEQ/L (5-15) Blood Urea Nitrogen 84 MG/DL (7-18) Creatinine 8.94 MG/DL (0.60-1.30) Estimat Glomerular Filtration 6 ML/MIN (>89) Rate Random Glucose 273 MG/DL (74-106) Phosphorus Level 5.7 MG/DL (2.5-4.9) Stool C. difficile Toxin (PCR) POSITIVE (NEGATIVE) Blood Gas HCO3 21 mmol/L (22-26) Blood Gas Base Excess -3.5 mmol/L (-2-2) Arterial Blood Partial 35 mmHg (38-42) Pressure CO2 Arterial Blood Partial 175 mmHg Pressure O2 (61-120) Urine Turbidity CLOUDY (CLEAR) Urine Protein 300 mg/dL (NEG-TRACE) Urine Glucose (UA) 70 mg/dL (NEG) Urine Occult Blood MOD (NEG) Urine Leukocyte Esterase LARGE (NEG) Urine RBC 90 /hpf (0-3) Urine WBC 84 /hpf (0-5) Urine WBC Clumps MANY (NONE) Urine Bacteria OCC /hpf (NONE) Urine Mucus FEW /lpf (OCC) Test 09/16/16 09/17/16 05:05 04:45 White Blood Count 20.1 TH/MM3 22.9 TH/MM3 (4.0-11.0) (4.0-11.0) Red Blood Count 4.05 MIL/MM3 3.82 MIL/MM3 (4.50-5.90) (4.50-5.90) Hemoglobin 12.1 GM/DL 11.2 GM/DL (13.0-17.0) (13.0-17.0) Hematocrit 36.5 % 34.2 % (39.0-51.0) (39.0-51.0) Neutrophils (%) (Auto) 79.2 % 84.1 % (16.0-70.0) (16.0-70.0) Monocytes (%) (Auto) 9.6 % (0.0-8.0) 8.9 % (0.0-8.0) Neutrophils # (Auto) 15.9 TH/MM3 19.3 TH/MM3 (1.8-7.7) (1.8-7.7) Monocytes # (Auto) 1.9 TH/MM3 2.0 TH/MM3 (0-0.9) (0-0.9) Anion Gap 16 MEQ/L (5-15) 17 MEQ/L (5-15) Blood Urea Nitrogen 77 MG/DL (7-18) 87 MG/DL (7-18) Creatinine 8.48 MG/DL 10.92 MG/DL (0.60-1.30) (0.60-1.30) Estimat Glomerular Filtration 6 ML/MIN (>89) 5 ML/MIN (>89) Rate Random Glucose 260 MG/DL 255 MG/DL (74-106) (74-106) Lymphocytes (%) (Auto) 4.8 % (9.0-44.0) Eosinophils # (Auto) 0.5 TH/MM3 (0-0.4) Sodium Level 134 MEQ/L (136-145) Chloride Level 96 MEQ/L (98-107) Calcium Level 8.2 MG/DL (8.5-10.1) Aspartate Amino Transf 1122 U/L (AST/SGOT) (15-37) Alanine Aminotransferase 1526 U/L (ALT/SGPT) (12-78) Albumin 2.8 GM/DL (3.4-5.0) Last 48 hours Impressions Abdomen X-Ray 09/17/16 0600 Signed Impressions: Service Date/Time: Saturday, September 17, 2016 05:05 - CONCLUSION: Nonspecific abdomen appearance. Michael Ross MD Chest X-Ray 09/15/16 1621 Signed Impressions: Service Date/Time: Thursday, September 15, 2016 16:33 - CONCLUSION: 1. Uncomplicated line placement. No evidence of pneumothorax. Wesley Chaudhari MD Micro and Labs Laboratory Tests Test 09/17/16 04:45 White Blood Count 22.9 Red Blood Count 3.82 Hemoglobin 11.2 Hematocrit 34.2 Mean Corpuscular Volume 89.5 Mean Corpuscular Hemoglobin 29.3 Mean Corpuscular Hemoglobin 32.7 Concent Red Cell Distribution Width 15.6 Platelet Count 252 Mean Platelet Volume 9.4 Neutrophils (%) (Auto) 84.1 Lymphocytes (%) (Auto) 4.8 Monocytes (%) (Auto) 8.9 Eosinophils (%) (Auto) 2.0 Basophils (%) (Auto) 0.2 Neutrophils # (Auto) 19.3 Lymphocytes # (Auto) 1.1 Monocytes # (Auto) 2.0 Eosinophils # (Auto) 0.5 Basophils # (Auto) 0.1 CBC Comment DIFF FINAL Differential Comment Sodium Level 134 Potassium Level 3.7 Chloride Level 96 Carbon Dioxide Level 21.4 Anion Gap 17 Blood Urea Nitrogen 87 Creatinine 10.92 Estimat Glomerular Filtration 5 Rate Random Glucose 255 Calcium Level 8.2 Total Bilirubin 0.6 Aspartate Amino Transf 1122 (AST/SGOT) Alanine Aminotransferase 1526 (ALT/SGPT) Alkaline Phosphatase 65 Total Protein 7.3 Albumin 2.8 Date/Time Procedure Status Source Growth 09/16/16 01:45 Urine Culture Received Urine Catheterized Urine Pending 09/15/16 21:37 Aerobic Blood Culture - Preliminary Resulted Blood Other NO GROWTH IN 1 DAY 09/15/16 21:37 Anaerobic Blood Culture - Preliminary Resulted Blood Other NO GROWTH IN 1 DAY 09/14/16 08:45 Urine Culture - Final Complete Urine Catheterized Urine NO GROWTH IN 48 HOURS. Shahnaz Nguyen MD Sep 17, 2016 09:00
[2016-09-17] MEDS: GENTAMICIN SULFATE (DIALYSIS USE ONLY) 20 MG/2 ML VIAL IV PRN (09:02)
[2016-09-17] MEDS: HEPARIN SODIUM - IV 10,000 UNITS/10 ML VIAL PRN (09:02)
--- NOTE | 2016-09-17 09:13 | HHI.CCPN ---
Subjective Remarks/Hospital Course 66-year-old gentleman with a history of coronary artery disease status post CABG underwent emergent cardiac catheterization by Dr. Cummins. Postprocedure his course is complicated by aphasia and right-sided weakness. 09/08 Patient was on BIPAP 14/7 with FIO2 25%. On Precedex and heparin drips. CT brain showed last night showed no acute process. Impela was removed this morning by Dr. Cummins. T:99.9 Renal function improving with Cr:2.5 from 3.0 hyperkalemic with K 6.1 09/09: Overnight remained on BiPAP predominantly for sleep apnea. Intermittently follows commands. Will check MRI of the brain today. Creatinine slightly worsened to 2.8. Consulted nephrology, hyperkalemia resolved 09/10: Remains on BiPAP, some interval worsening of respiratory status. Patient is more tachypneic chest x-ray shows left lower lobe infiltrate .Currently sedated with 0.5 g per KG per hour of Precedex. I will discontinue Precedex. MRI brain shows acute infarct left sylvian region. Creatinine slightly worse at 3. Low-grade fever Tmax 100.2, send blood and sputum culture and start Zosyn 09/11: Patient was intubated yesterday for progressively worsening respiratory failure, hypoxemia and altered mentation. On ventilator support patient's oxygenation has improved. He moves all extremities do not following commands. Chest x-ray shows no definite infiltrates 09/12: Extubated yesterday tolerating well oxygenation varghese and protecting airway. No fevers. Urine output 3.8 L in 24 hours with creatinine worsening from 3.9 to 4.5 today. Remains aphasic not following commands 09/13: Somnolent, received Ativan for agitation overnight. Urine output 4 L in 24 hours. Labs are pending at this time. Opens eyes to verbal stimulation, remains aphasic and did not follow commands 09/14 Patient appears somnolent. On no sedation. Renal function worse today with Cr: 7.31 from 5.40 and UO: 715ml in 24hrs. T:100.9 this morning. Remains aphasic. 09/15 Patient was placed on Amio drip overnight for Afib with RVR. HD initiated yesterday with removal 2L. He is currently receiving another HD treatment. Tmax 100.9. Patient remains encephalopathic and does not follow commands. TF was held due to high residuals. 09/16 Patient was intubated yesterday for airway protection. On Fentanyl drip for sedation on Neosyn. Tmax 104. C-diff PCR positive. CT abd/pelvis showed no acute process, gaseous distention. 09/17 Patient remains intubated and sedated with Fentanyl. On Neosyn 75 mics. T: 101.8 at 4 am. Objective Vital Signs Date Time Temp Pulse Resp B/P Pulse Ox O2 Delivery O2 Flow Rate FiO2 09/17/16 07:38 98 40 09/17/16 06:00 83 09/17/16 04:00 101.8 18 126/57 09/15/16 16:00 Mechanical Ventilator 09/15/16 00:00 4.00 Intake and Output 09/16/16 09/16/16 09/17/16 08:00 16:00 00:00 Intake Total 915 ml 1489 ml 1055 ml Output Total 320 ml 175 ml 270 ml Balance 595 ml 1314 ml 785 ml Result Diagram: 09/17/16 0445 09/17/16 0445 Other Results Laboratory Tests Test 09/17/16 04:45 White Blood Count 22.9 TH/MM3 Red Blood Count 3.82 MIL/MM3 Hemoglobin 11.2 GM/DL Hematocrit 34.2 % Mean Corpuscular Volume 89.5 FL Mean Corpuscular Hemoglobin 29.3 PG Mean Corpuscular Hemoglobin 32.7 % Concent Red Cell Distribution Width 15.6 % Platelet Count 252 TH/MM3 Mean Platelet Volume 9.4 FL Neutrophils (%) (Auto) 84.1 % Lymphocytes (%) (Auto) 4.8 % Monocytes (%) (Auto) 8.9 % Eosinophils (%) (Auto) 2.0 % Basophils (%) (Auto) 0.2 % Neutrophils # (Auto) 19.3 TH/MM3 Lymphocytes # (Auto) 1.1 TH/MM3 Monocytes # (Auto) 2.0 TH/MM3 Eosinophils # (Auto) 0.5 TH/MM3 Basophils # (Auto) 0.1 TH/MM3 CBC Comment DIFF FINAL Differential Comment Sodium Level 134 MEQ/L Potassium Level 3.7 MEQ/L Chloride Level 96 MEQ/L Carbon Dioxide Level 21.4 MEQ/L Anion Gap 17 MEQ/L Blood Urea Nitrogen 87 MG/DL Creatinine 10.92 MG/DL Estimat Glomerular Filtration 5 ML/MIN Rate Random Glucose 255 MG/DL Calcium Level 8.2 MG/DL Total Bilirubin 0.6 MG/DL Aspartate Amino Transf 1122 U/L (AST/SGOT) Alanine Aminotransferase 1526 U/L (ALT/SGPT) Alkaline Phosphatase 65 U/L Total Protein 7.3 GM/DL Albumin 2.8 GM/DL Imaging Last Impressions Abdomen X-Ray 09/17/16 0600 Signed Impressions: Service Date/Time: Saturday, September 17, 2016 05:05 - CONCLUSION: Nonspecific abdomen appearance. Michael Ross MD Chest X-Ray 09/15/16 1621 Signed Impressions: Service Date/Time: Thursday, September 15, 2016 16:33 - CONCLUSION: 1. Uncomplicated line placement. No evidence of pneumothorax. Wesley Chaudhari MD Head CT 09/15/16 0000 Signed Impressions: Service Date/Time: Thursday, September 15, 2016 10:15 - CONCLUSION: 1. Sizable area of decreased attenuation in the left MCA distribution most consistent with subacute cortical infarct. This there is stable compared to previous MR dated 09/09/16. Sanket Gonzalez MD Central Venous Line 09/15/16 0000 Signed Impressions: Service Date/Time: Thursday, September 15, 2016 00:00 - CONCLUSION: Uncomplicated line placement as above. Wesley Chaudhari MD Abdomen/Pelvis CT 09/15/16 0000 Signed Impressions: Service Date/Time: Thursday, September 15, 2016 17:00 - CONCLUSION: 1. Gaseous distension of the stomach. 2. I do not see evidence for significant colitis. Lowell Gonzalez MD FACR Catheter Placement X-Ray 09/14/16 0000 Signed Impressions: Service Date/Time: Wednesday, September 14, 2016 00:00 - CONCLUSION: Uncomplicated line placement as above. Wesley Chaudhari MD Carotid Artery Ultrasound 09/13/16 0000 Signed Impressions: Service Date/Time: Tuesday, September 13, 2016 16:46 - CONCLUSION: Significant plaque remains evident in the carotid bifurcations. Poor visualization and difficulty velocity sampling of the proximal internal carotid arteries was again encountered. Significant carotid stenosis cannot be excluded. Nonvisualization of the vertebral arteries. Mack Brizuela MD Brain MRI 09/09/16 0000 Signed Impressions: Service Date/Time: August 16:36 - CONCLUSION: 1. Findings demonstrate an acute infarction in the left sylvian region, nonhemorrhagic. 2. Small air-fluid level right maxillary sinus and mild bilateral ethmoid sinus disease. Suresh Diaz MD Renal Ultrasound 09/08/16 0000 Signed Impressions: Service Date/Time: Thursday, September 08, 2016 16:04 - CONCLUSION: Large 6.3 cm cyst lower pole laterally left kidney. No evidence of hydronephrosis or obstructive uropathy.. Christian Cooper MD Objective Remarks GENERAL: Well-nourished, well-developed patient. On NC SKIN: Warm and dry. HEAD: Normocephalic. EYES: No scleral icterus. No injection or drainage. ENT: Oral cavity moist NECK: Supple, trachea midline. No JVD or lymphadenopathy. CARDIOVASCULAR: Regular rate and rhythm without murmurs, gallops, or rubs. RESPIRATORY: Breath sounds equal bilaterally. No accessory muscle use. GASTROINTESTINAL: Abdomen soft, non-tender, nondistended. MUSCULOSKELETAL: No cyanosis, or edema. BACK: Nontender without obvious deformity. EXTREMITIES: Somnolent but opens eyes to stimulation, aphasic. Blank stare, donot follow commands. Moving all extremities, weaker on R side A/P Problem List: (1) Acute ischemic left MCA stroke ICD Code: I63.512 Status: Acute (2) Acute renal failure ICD Code: N17.9 Status: Acute (3) CHF (congestive heart failure), NYHA class III ICD Code: I50.9 Status: Acute (4) Coronary artery disease involving [place] heart ICD Code: I25.10 Status: Chronic (5) HTN (hypertension) ICD Code: I10 Status: Acute (6) CKD (chronic kidney disease) ICD Code: N18.9 Status: Acute Assessment and Plan ASSESSMENT Acute left MCA stroke Aphasia with right hemiparesis Metabolic encephalopathy NSTEMI Known CAD C-diff colitis Obstructive sleep apnea UTI with enterococcus HCAP Acute hypoxemic respiratory failure-resolved Acute on chronic kidney disease Hyperkalemia-resolved DM HTN LEONARD Hyperlipidemia Plan Neuro: -On Fentanyl infusion. Monitor neuro status. Ativan PRN for agitation -Repeat CT brain 09/15: Sizable area of decreased attenuation in the left MCA distribution most consistent with subacute cortical infarct -MRI brain 09/09/16-acute left sylvian region infarct. CT brain 09/07: No acute disease. -Continue aspirin and Plavix. Neuro was following- Cr. Nguyen. -09/13 EEG: within normal. Pulm: -Extubated 09/11 -Continue with vent support keep sat >92% -Bronchodilators, ICU vent bundle, CPAP trials as khris - Might end up needing trach and PEG placement if family desires aggressive care CV: -Wean off Neosyn drip monitor HR and BP keep MAP>65mmHg -Continue with ASA, Plavix. Imdur and Lopressor on hold -s/p cardiac cath 09/07 showed multivessel disease with 2/6 grafts patent, EF 40% . s/p PCI with stents of the saphenous venous graft to the first diagonal artery. -s/p removal Impella 09/08. Cardiology- Dr. Cummins : -Monitor renal function, I/O's, avoid nephrotoxins. -HD initiated 09/14 with removal 2L. HD per renal for HD today -Renal-Dr. Naidu. . GI: - On Protonix 40mg -OGT to LIWS, monitor gastric drainage .GI is following - Monitor LFT's, check US liver. Hepatitis profile negative on 09/14 ID: Leukocytosis C-diff colitis -Continue abx per ID ( PO Vanco, IV Flagyl, Merrem, Micafungin, Zyvox). Monitor for signs of infections ( Fever, WBC) -Will panculture ( Blood, sputum) , replace Guillen and check UA -CT abd/pelvis: Gaseous distention, no acute process -KUB abdomen this morning- non specific bowel gas pattern Heme: -Monitor CBC Endo: -SSI with accuchecks for glycemic control GI prophylaxis - on Protonix 40mg Q12 DVT prophylaxis - SCD, Heparin 5000 units sq very 12 Palliative care is following. Awaiting family's decision re goals of care if they want aggressive care patient will likely need trach and PEG tube placement. Lines: Right Vascth placed 09/14, Right IJ CVP placed 09/15 CCT 30 mins Problem Qualifiers (1) Acute renal failure: Qualified Code: N17.0 - Acute renal failure with tubular necrosis Leroy Urena MD Sep 17, 2016 09:13
--- NOTE | 2016-09-17 10:27 | HHI.NPPN ---
Subjective History of Present Illness 66-year-old male with history of coronary artery disease status post CABG, osteoarthritis, diabetes, hyperlipidemia who was admitted there with unstable angina and underwent heart catheterization found to have significant blockages requiring stent and impella device, he has acute renal failure. Additional Remarks Patient remain unresponsive off sedation and Vent Objective Data Data 09/16/16 09/17/16 19:00 07:00 Intake Total 1489 ml 2085 ml Output Total 175 ml 990 ml Balance 1314 ml 1095 ml IV Total 1489 ml 1965 ml Tube Irrigant 120 ml Output Urine Total 75 ml 40 ml Stool Total 100 ml 500 ml Gastric Drainage Total 450 ml Vital Signs Date Time Temp Pulse Resp B/P Pulse Ox O2 Delivery O2 Flow Rate FiO2 09/17/16 07:38 98 40 09/17/16 06:00 83 09/17/16 04:07 100 40 09/17/16 04:00 101.8 18 18 126/57 100 09/17/16 04:00 87 09/17/16 02:00 85 09/17/16 01:06 100 40 09/17/16 00:00 101.3 86 22 103/60 100 09/17/16 00:00 86 09/16/16 22:03 100 40 09/16/16 22:00 83 09/16/16 20:00 100.5 80 18 145/72 100 09/16/16 20:00 80 09/16/16 19:16 100 40 09/16/16 18:00 90 09/16/16 16:00 100.0 90 19 103/58 09/16/16 16:00 90 09/16/16 14:00 87 09/16/16 12:00 98.9 80 19 83/56 09/16/16 12:00 80 09/16/16 11:00 100 40 -: 09/17/16 0445 09/17/16 0445 Physical Exam General Appearance: Well Developed, Well Nourished Pulmonary Resp Exam: Crackles, Rhonchi, Decreased Bases, Diminished Breath Sounds Cardiology CV Exam: Regular, Normal Sinus Rhythm Gastrointestinal/Abdomen GI Exam: Soft, Non-Tender, Bowel Sounds Present, Distended Extremeties Extremities Exam: Moderate Edema, Pitting Edema, Dependent Edema Neurologic Neuro Exam: Sedated Assessment/Plan Problem List: (1) Acute renal failure Plan: on vasopressor BP better on vent intubated He has elevation in the creatinine and he is oliguric. Renal failure on hemodialysis seen during HD 4 L UF , has some dyspnea he is suctioned and it is better continue supportive care (2) Hyperkalemia Plan: Resolved (3) Chronic kidney disease Plan: He has stage III chronic kidney disease due to diabetic (4) CHF (congestive heart failure), NYHA class III Plan: Continue to monitor for improvement (5) Coronary artery disease involving tel[place] heart Plan: Review his bypass and stents (6) Hypertension, essential, benign Plan: Monitor blood pressure (7) Diabetes mellitus, type II Plan: Monitor blood glucose (8) UTI (lower urinary tract infection) Plan: Meropenem (9) CVA (cerebral vascular accident) Plan: remain unresponsive moves left side more Problem Qualifiers (1) Acute renal failure: Qualified Code: N17.0 - Acute renal failure with tubular necrosis (2) Chronic kidney disease: Qualified Code: N18.4 - Chronic kidney disease, stage 4 (severe) Marisol Naidu MD Sep 17, 2016 10:27
--- NOTE | 2016-09-17 13:07 | RADRPT ---
EXAM DATE/TIME: 09/17/2016 11:01 [facility] COMPARISON: CT ABDOMEN & PELVIS W/O CONTRAST, September 15, 2016, 17:00. INDICATIONS : Increased lab values. MEDICAL HISTORY : Hypertension. Cerebrovascular disease. Cardiovascular disease SURGICAL HISTORY : None. ENCOUNTER: Initial ACUITY: 1 day PAIN SCORE: Nonresponsive. LOCATION: Bilateral upper quadrant MEASUREMENTS: LIVER: 21.5 cm length COMMON DUCT: 5 mm RIGHT KIDNEY: 13.4 x 5.1 x 5.9 cm SPLEEN: 10.2 cm length FINDINGS: LIVER: Normal echotexture without focal lesion or ductal dilatation. COMMON DUCT: No intraluminal mass or stone visualized. GALLBLADDER: Contains no stones, demonstrates no wall thickening or pericholecystic fluid. PANCREAS: The visualized portions are within normal limits. RIGHT KIDNEY: No hydronephrosis, stone or mass. Minimally complex right mid renal cyst is seen measuring 5.7 x 4.2 x 5.3 cm containing some punctate calcifications and some wall thickening. SPLEEN: No focal lesion. CONCLUSION: 1. Minimally complex cyst right mid kidney. 2. Liver mildly enlarged. Cesar Mcfadden MD on September 17, 2016 at 12:59 Board Certified Radiologist. This report was verified electronically.
--- NOTE | 2016-09-17 13:14 | HHI.HCPN ---
Reason for visit a. To assist with evaluation and management of symptoms including: shortness of breath and debility. b. To assist medical decision maker(s) with: better understanding of current medical conditions; weighing benefits/burdens of medical treatment options; making medical treatment decisions. . Subjective/Interval History Patient seen in ICU. he remains intubated, sedated on mechanical ventilation. Worsening renal function, BUN/creatinine a 70/10.92. Nephrology -Dr. Naidu following. Patient underwent hemodialysis today, 4 L out. Remains on Rory- Synephrine. Febrile with Max temp 101.8 this morning. ID -Dr. Mini Becker following. Patient remains on antibiotic therapy. No changes in neurological status, patient unresponsive to tactile or verbal stimuli. Currently on fentanyl drip. Neurology -Dr. Nguyen following. Laboratory today, WBC trending up 22.9, Hgb 11.2, pl 252. Na 134, K 3.7. Abdomen x-ray today showing nonspecific appearance. Patient presents with multisystem organ failure. Liver enzymes today elevated, AST 1122, 8 LT 1526, alkaline phosphatase 65. Pending living ultrasound No family at bedside. Telephone call to patient's son Sedrick and left message on voicemail. Palliative care will continue to follow-up for further clarifications of goals of care in the setting of multisystem organ failure with very poor prognosis. 13:52. TC to patient's son Sedrick. Now voice mail is full. TC to son Vaibhav and provided medical update. Pt's daughter Yani called me as well. She reports that will be arriving to [place] sometime in the afternoon tomorrow. Reviewed with both children patient's worsening clinical condition, now presenting with multiorgan system failure involving lungs, kidneys and now liver, in addition to poor neurological status secondary to stroke. Reviewed very poor prognosis for surviving this hospitalization. Reviewed code status/CPR given his critical condition. Reviewed continuation of aggressive care vs. transition to comfort- directed care/withdrawal of life support. Daughter very tearful, family wishing for continuation of aggressive treatment until the time aundrea Lomeli arrives for further clarification of goals of care. . Family/friend interactions See interval note. . Advance Directives Advance Directive Specifics Health Care Surrogate(s): Max Dubose not sure if patient has completed advance directives. As per [place] statute, healthcare decision-making falls to patient's 3 children. . Documented care wishes: Unclear at this time if advance directives have been completed. . Objective Vital Signs Date Time Temp Pulse Resp B/P Pulse Ox O2 Delivery O2 Flow Rate FiO2 09/17/16 12:09 95 40 09/17/16 07:38 98 40 09/17/16 06:00 83 09/17/16 04:07 100 40 09/17/16 04:00 101.8 18 18 126/57 100 09/17/16 04:00 87 09/17/16 02:00 85 09/17/16 01:06 100 40 09/17/16 00:00 101.3 86 22 103/60 100 09/17/16 00:00 86 09/16/16 22:03 100 40 09/16/16 22:00 83 09/16/16 20:00 100.5 80 18 145/72 100 09/16/16 20:00 80 09/16/16 19:16 100 40 09/16/16 18:00 90 09/16/16 16:00 100.0 90 19 103/58 09/16/16 16:00 90 09/16/16 14:00 87 Intake & Output 09/17/16 09/17/16 07:00 19:00 Intake Total 2085 ml Output Total 990 ml 4000 ml Balance 1095 ml -4000 ml IV Total 1965 ml Tube Irrigant 120 ml Output Urine Total 40 ml Stool Total 500 ml Gastric Drainage Total 450 ml Hemodialysis 4000 ml Physical Exam CONSTITUTIONAL/GENERAL: This is an adequately nourished patient in no acute distress. Sedated, intubated on mechanical ventilation. TUBES/LINES/DRAINS: PIV's, SCDs, Guillen catheter, dialysis catheter. ETT. SKIN: No jaundice, rashes, or lesions. No wounds seen anteriorly. Not diaphoretic. Dry skin. HEAD: Atraumatic. Normocephalic. ENT: Unable to evaluate hearing secondary to clinical condition.. Nose without bleeding or purulent drainage.EET in place. NECK: Trachea midline. Supple. CARDIOVASCULAR: irregular rate and rhythm. RESPIRATORY/CHEST: Symmetric, unlabored. Coarse breath sounds anteriorly. Intubated on mechanical ventilation. GASTROINTESTINAL: Abdomen soft, large, round. Bowel sounds present. GENITOURINARY: Without palpable bladder distension. Guillen catheter in place. MUSCULOSKELETAL: Extremities without clubbing, cyanosis. NEUROLOGICAL: Unresponsive to tactile or verbal stimuli. Not following any commands. PSYCHIATRIC: Unable to assess secondary to clinical condition. Appears calm. . Diagnostic Tests Laboratory Laboratory Tests Test 09/14/16 09/14/16 09/15/16 09/15/16 13:20 21:20 04:05 09:55 Hepatitis A IgM Antibody NEGATIVE (NEGATIVE) Hepatitis B Surface Antigen NEGATIVE (NEGATIVE) Hepatitis B Core IgM Antibody NEGATIVE (NEGATIVE) Hepatitis C Antibody NEGATIVE (NEGATIVE) Blood Gas Puncture Site RT RADIAL Blood Gas Patient Temperature 98.6 Blood Gas HCO3 24 mmol/L (22-26) Blood Gas Base Excess -0.5 mmol/L (-2-2) Blood Gas Oxygen Saturation 95 % (90-100) Arterial Blood pH 7.39 (7.380-7.420) Arterial Blood Partial 40 mmHg (38-42) Pressure CO2 Arterial Blood Partial 103 mmHg Pressure O2 (61-120) Arterial Blood Oxygen Content 19.4 Vol % (12.0-20.0) Arterial Blood 1.3 % (0-4) Carboxyhemoglobin Arterial Blood Methemoglobin 1.2 % (0-2) Blood Gas Hemoglobin 14.5 G/DL (12.0-16.0) Oxygen Delivery Device BIPAP10/5/40% Blood Gas Inspired Oxygen 40 % White Blood Count 19.6 TH/MM3 (4.0-11.0) Red Blood Count 4.52 MIL/MM3 (4.50-5.90) Hemoglobin 13.6 GM/DL (13.0-17.0) Hematocrit 41.6 % (39.0-51.0) Mean Corpuscular Volume 92.1 FL (80.0-100.0) Mean Corpuscular Hemoglobin 30.1 PG (27.0-34.0) Mean Corpuscular Hemoglobin 32.7 % Concent (32.0-36.0) Red Cell Distribution Width 15.5 % (11.6-17.2) Platelet Count 365 TH/MM3 (150-450) Mean Platelet Volume 8.9 FL (7.0-11.0) Neutrophils (%) (Auto) 78.7 % (16.0-70.0) Lymphocytes (%) (Auto) 4.1 % (9.0-44.0) Monocytes (%) (Auto) 16.5 % (0.0-8.0) Eosinophils (%) (Auto) 0.6 % (0.0-4.0) Basophils (%) (Auto) 0.1 % (0.0-2.0) Neutrophils # (Auto) 15.4 TH/MM3 (1.8-7.7) Lymphocytes # (Auto) 0.8 TH/MM3 (1.0-4.8) Monocytes # (Auto) 3.2 TH/MM3 (0-0.9) Eosinophils # (Auto) 0.1 TH/MM3 (0-0.4) Basophils # (Auto) 0.0 TH/MM3 (0-0.2) CBC Comment AUTO DIFF Differential Comment AUTO DIFF CONFIRMED Platelet Estimate NORMAL (NORMAL) Platelet Morphology Comment NORMAL (NORMAL) Prothrombin Time 14.2 SEC (9.8-11.6) Prothromb Time International 1.3 RATIO Ratio Sodium Level 142 MEQ/L (136-145) Potassium Level 4.6 MEQ/L (3.5-5.1) Chloride Level 98 MEQ/L (98-107) Carbon Dioxide Level 26.6 MEQ/L (21.0-32.0) Anion Gap 17 MEQ/L (5-15) Blood Urea Nitrogen 84 MG/DL (7-18) Creatinine 8.94 MG/DL (0.60-1.30) Estimat Glomerular Filtration 6 ML/MIN (>89) Rate Random Glucose 273 MG/DL (74-106) Calcium Level 9.3 MG/DL (8.5-10.1) Phosphorus Level 5.7 MG/DL (2.5-4.9) Stool C. difficile Toxin (PCR) POSITIVE (NEGATIVE) Stl C. difficile Toxin PRESUMPTIVE Epiderm 027 NEGATIVE (NEGATIVE) Test 09/15/16 09/15/16 09/16/16 09/16/16 13:45 21:37 01:45 05:05 Blood Gas Puncture Site LT RADIAL Blood Gas Patient Temperature 98.6 Blood Gas HCO3 21 mmol/L (22-26) Blood Gas Base Excess -3.5 mmol/L (-2-2) Blood Gas Oxygen Saturation 97 % (90-100) Arterial Blood pH 7.39 (7.380-7.420) Arterial Blood Partial 35 mmHg (38-42) Pressure CO2 Arterial Blood Partial 175 mmHg Pressure O2 (61-120) Arterial Blood Oxygen Content 16.8 Vol % (12.0-20.0) Arterial Blood 1.2 % (0-4) Carboxyhemoglobin Arterial Blood Methemoglobin 1.5 % (0-2) Blood Gas Hemoglobin 12.1 G/DL (12.0-16.0) Oxygen Delivery Device VENTILATOR Blood Gas Ventilator Setting PRVC/AC Blood Gas Inspired Oxygen 50 % Lactic Acid Level 1.5 mmol/L (0.4-2.0) Urine Color YELLOW (YELLW/STRAW) Urine Turbidity CLOUDY (CLEAR) Urine pH 6.0 (5.0-8.5) Urine Specific [place] 1.024 (1.002-1.035) Urine Protein 300 mg/dL (NEG-TRACE) Urine Glucose (UA) 70 mg/dL (NEG) Urine Ketones NEG mg/dL (NEG) Urine Occult Blood MOD (NEG) Urine Nitrite NEG (NEG) Urine Bilirubin NEG (NEG) Urine Urobilinogen LESS THAN 2.0 MG/DL (LESS THAN 2.0) Urine Leukocyte Esterase LARGE (NEG) Urine RBC 90 /hpf (0-3) Urine WBC 84 /hpf (0-5) Urine WBC Clumps MANY (NONE) Urine Squamous Epithelial 3 /hpf (0-5) Cells Urine Amorphous Sediment RARE Urine Bacteria OCC /hpf (NONE) Urine Granular Casts 44 /lpf (NONE) Urine Waxy Casts 7 /lpf (NONE) Urine Mucus FEW /lpf (OCC) Microscopic Urinalysis Comment CATH-CULTURE IND White Blood Count 20.1 TH/MM3 (4.0-11.0) Red Blood Count 4.05 MIL/MM3 (4.50-5.90) Hemoglobin 12.1 GM/DL (13.0-17.0) Hematocrit 36.5 % (39.0-51.0) Mean Corpuscular Volume 90.3 FL (80.0-100.0) Mean Corpuscular Hemoglobin 29.8 PG (27.0-34.0) Mean Corpuscular Hemoglobin 33.0 % Concent (32.0-36.0) Red Cell Distribution Width 15.5 % (11.6-17.2) Platelet Count 298 TH/MM3 (150-450) Mean Platelet Volume 8.9 FL (7.0-11.0) Neutrophils (%) (Auto) 79.2 % (16.0-70.0) Lymphocytes (%) (Auto) 9.0 % (9.0-44.0) Monocytes (%) (Auto) 9.6 % (0.0-8.0) Eosinophils (%) (Auto) 1.8 % (0.0-4.0) Basophils (%) (Auto) 0.4 % (0.0-2.0) Neutrophils # (Auto) 15.9 TH/MM3 (1.8-7.7) Lymphocytes # (Auto) 1.8 TH/MM3 (1.0-4.8) Monocytes # (Auto) 1.9 TH/MM3 (0-0.9) Eosinophils # (Auto) 0.4 TH/MM3 (0-0.4) Basophils # (Auto) 0.1 TH/MM3 (0-0.2) CBC Comment DIFF FINAL Differential Comment Sodium Level 139 MEQ/L (136-145) Potassium Level 3.8 MEQ/L (3.5-5.1) Chloride Level 100 MEQ/L (98-107) Carbon Dioxide Level 23.5 MEQ/L (21.0-32.0) Anion Gap 16 MEQ/L (5-15) Blood Urea Nitrogen 77 MG/DL (7-18) Creatinine 8.48 MG/DL (0.60-1.30) Estimat Glomerular Filtration 6 ML/MIN (>89) Rate Random Glucose 260 MG/DL (74-106) Calcium Level 8.8 MG/DL (8.5-10.1) Test 09/17/16 04:45 White Blood Count 22.9 TH/MM3 (4.0-11.0) Red Blood Count 3.82 MIL/MM3 (4.50-5.90) Hemoglobin 11.2 GM/DL (13.0-17.0) Hematocrit 34.2 % (39.0-51.0) Mean Corpuscular Volume 89.5 FL (80.0-100.0) Mean Corpuscular Hemoglobin 29.3 PG (27.0-34.0) Mean Corpuscular Hemoglobin 32.7 % Concent (32.0-36.0) Red Cell Distribution Width 15.6 % (11.6-17.2) Platelet Count 252 TH/MM3 (150-450) Mean Platelet Volume 9.4 FL (7.0-11.0) Neutrophils (%) (Auto) 84.1 % (16.0-70.0) Lymphocytes (%) (Auto) 4.8 % (9.0-44.0) Monocytes (%) (Auto) 8.9 % (0.0-8.0) Eosinophils (%) (Auto) 2.0 % (0.0-4.0) Basophils (%) (Auto) 0.2 % (0.0-2.0) Neutrophils # (Auto) 19.3 TH/MM3 (1.8-7.7) Lymphocytes # (Auto) 1.1 TH/MM3 (1.0-4.8) Monocytes # (Auto) 2.0 TH/MM3 (0-0.9) Eosinophils # (Auto) 0.5 TH/MM3 (0-0.4) Basophils # (Auto) 0.1 TH/MM3 (0-0.2) CBC Comment DIFF FINAL Differential Comment Sodium Level 134 MEQ/L (136-145) Potassium Level 3.7 MEQ/L (3.5-5.1) Chloride Level 96 MEQ/L (98-107) Carbon Dioxide Level 21.4 MEQ/L (21.0-32.0) Anion Gap 17 MEQ/L (5-15) Blood Urea Nitrogen 87 MG/DL (7-18) Creatinine 10.92 MG/DL (0.60-1.30) Estimat Glomerular Filtration 5 ML/MIN (>89) Rate Random Glucose 255 MG/DL (74-106) Calcium Level 8.2 MG/DL (8.5-10.1) Total Bilirubin 0.6 MG/DL (0.2-1.0) Aspartate Amino Transf 1122 U/L (AST/SGOT) (15-37) Alanine Aminotransferase 1526 U/L (ALT/SGPT) (12-78) Alkaline Phosphatase 65 U/L (45-117) Total Protein 7.3 GM/DL (6.4-8.2) Albumin 2.8 GM/DL (3.4-5.0) Result Diagram: 09/17/165 09/17/16 0445 Microbiology Microbiology Date/Time Procedure Status Source Growth 09/15/16 21:30 Aerobic Blood Culture - Preliminary Resulted Blood Other NO GROWTH IN 2 DAYS 09/15/16 21:30 Anaerobic Blood Culture - Preliminary Resulted Blood Other NO GROWTH IN 2 DAYS 09/15/16 21:37 Aerobic Blood Culture - Preliminary Resulted Blood Other NO GROWTH IN 2 DAYS 09/15/16 21:37 Anaerobic Blood Culture - Preliminary Resulted Blood Other NO GROWTH IN 2 DAYS 09/16/16 01:45 Urine Culture - Preliminary Resulted Urine Catheterized Urine NO GROWTH IN 24 HOURS. 09/17/16 10:00 Aerobic Blood Culture Received Blood Peripheral Pending 09/17/16 10:00 Anaerobic Blood Culture Received Blood Peripheral Pending 09/17/16 10:07 Aerobic Blood Culture Received Blood Peripheral Pending 09/17/16 10:07 Anaerobic Blood Culture Received Blood Peripheral Pending Imaging Last 48 hours Impressions Abdomen X-Ray 09/17/16 0600 Signed Impressions: Service Date/Time: Saturday, September 17, 2016 05:05 - CONCLUSION: Nonspecific abdomen appearance. Michael Ross MD Chest X-Ray 09/15/16 1621 Signed Impressions: Service Date/Time: Thursday, September 15, 2016 16:33 - CONCLUSION: 1. Uncomplicated line placement. No evidence of pneumothorax. Wesley Chaudhari MD Procedures * 09/15/06 -intubation * 09/14/16 -dialysis catheter placement . * 09/11/16 -extubation. * 09/10/16 -intubation. * 09/07/16 -cardiac catheter with angioplasty and stent placement. . Assessment and Plan Disease Oriented Problem List: (1) Acute tubular necrosis (2) Acute ischemic left MCA stroke (3) CAD (coronary artery disease) of bypass graft (4) CHF (congestive heart failure), NYHA class II (5) Liver function failure Symptom Scale: (1) Shortness of breath 0-10 Scale: Unable to quantify Comment: Reintubated 09/15/06. On mechanical ventilation. (2) Debility 0-10 Scale: Unable to quantify Comment: Secondary to CVA, acute complications, hospitalization. Pertinent Non-Medical Issues Psychosocial: . Has 2 children. Living independently prior to this hospitalization. Spiritual: Mandaen. Legal: Unknown if advance directives have been completed. Ethical issues impacting care: Unknown if advance directives have been completed. . Important Contacts Max Birmingham [phone]. Son Vaibhav Salgado. Daughter Yani. . Prognosis Mr. Ferguson is a 66 y/o male with an adhesive significant cardiac history to include stenting in 2010, CAD status post 6 vessel CABG in 2011, and angioplasty and stenting in September 06. He was found to have significant blockage requiring angioplasty and stenting. 2 of 6 grafts are currently patent. Post cardiac catheter, patient developed aphasia and right sided hemiparesis. MRI of the brain showing acute nonhemorrhagic infarct. Patient was intubated and subsequently extubated secondary to respiratory failure and altered mental status. Vertical condition remains the same, he is obtunded and not following any commands. Patient with history of CKD now with acute tubular necrosis requiring renal replacement therapy. His prognosis is poor for a meaningful neurological recovery even if he is to survive this hospitalization given his age, severity of cardiac disease, complications to include stroke, and multiple comorbidities. He is at a very high risk for further decline, complications and . . Code Status: Full Code Plan * CODE STATUS: Full code. Risks, benefits and limitations of CPR, intubation and mechanical ventilation readdressed with patient's son on 09/16/16 given patient's worsening clinical condition. Encouraged to discuss further with family. * MEDICAL DECISION-MAKING: Patient incapacitated to make healthcare decisions secondary to clinical condition, unclear if he will regain. Son Sedrick not sure if patient has completed advance directives. As per [place] statute, healthcare decision-making falls to patient's 3 children. * GOALS OF CARE: Continue aggressive care for now. Daughter Yani to arrive from [place] on Tuesday09/18/16. Family currently discussing goals of care. All 3 children: Sedrick, Vaibhav and Yani have been updated by palliative care on pt's worsening clinical condition to include MSOF. Continuation of aggressive care vs withdrawal has been discussed.TC to son Vaibhav and provided medical update. Pt 's daughter Yani called me as well. She reports that will be arriving to [place] sometime in the afternoon tomorrow. Reviewed with both children patient's worsening clinical condition, now presenting with multiorgan system failure involving lungs, kidneys and now liver, in addition to poor neurological status secondary to stroke. Reviewed very poor prognosis for surviving this hospitalization. Reviewed code status/CPR given his critical condition. Reviewed continuation of aggressive care vs. transition to comfort-directed care /withdrawal of life support. Daughter very tearful, family wishing for continuation of aggressive treatment until the time aundrea Lomeli arrives for further clarification of goals of care. * Exhibit has been signed in the event family elect to transition pt to comfort- directed care/withdrawal of life support. Dr. Urena and bedside RN made aware. * SYMPTOMS: == Shortness of breath, patient recently intubated and extubated. Worsening clinical condition. Reintubated 09/15/16, remains on mechanical ventilation. == Debility, secondary to CVA, acute events and hospitalization. = = Anxiety, patient appears calm. * Case discussed with Dr. Mini Becker, Dr. Urena, Dr. Jake joshua and bedside RN. * Palliative care contact information has been provided to patient's family. * Palliative care will continue to follow-up to assist with symptom management and to further evaluate goals of care as the clinical course of goals. . Time Spent Total Floor Time (mins): 44 (Total care to include review of medical records, physical exam, separate telephone conversations with son Vaibhav and daughter Yani and case discussion with Dr. Urena and bedside RN. ) >50% Counseling/Coord of Care: Yes Attestation To help prompt me to consider important information that might be impacting today's encounter and assessment, information from prior notes written by myself or my colleagues may have been "brought forward" into today's note. My signature on this note, however, is an attestation that I personally performed the exam, history, and/or decision-making noted today, and, unless otherwise indicated, the interactions with patient, family, and staff as well as the review of records all occurred today. I also attest that the listed assessment and stated plan reflect my best clinical judgment today based on the combination of historical information, prior notes, and today's exam/ interactions. When time spent is documented, it refers only to time spent today by the signer, or if indicated, combined time spent today by collaborating physician/nurse practitioner. Simran Sorto Sep 17, 2016 13:14
--- NOTE | 2016-09-17 13:48 | HHI.IDPN ---
Subjective Subjective Remarks Mr. Ferguson is a 66 y/o male with a medical history of CAD status post 6 vessel CABG in 2012, CHF, CAD, hypertension, diabetes mellitus type 2, obesity, and sleep apnea. On 09/07/16, patient underwent cardiac catheterization , he was found to have significant blockage requiring angioplasty and stenting. Post cardiac catheter, patient developed aphasia and right sided hemiparesis. CT of the brain show no acute process. Neurology -Dr. Nguyen consulted. Brain MRI obtained on 09/09/16 showing acute nonhemorrhagic infarction in the left sylvian region. Patient developed respiratory distress and was placed on BiPAP , subsequently intubated and placed on mechanical ventilation. Patient was being treated for aspiration Pneumonia. Overnight intubated for airway protection. Infectious disease following for septic shock, aspiration Pneumonia, possible C. difficile colitis. Overnight events reviewed Fevers 101.8 F No rash 1000 ml liquid stool on treatment for Cdiff. CT with no colitis. Abnormal LFTs in 1000s overnight new. On HD. Antibiotics Meropenem IV Flagyl IV Vanco oral. Micafungin IV Zyvox IV Lines Line sites with no e/o infection Past Medical History reviewed Allergies: Coded Allergies: No Known Allergies (Verified , 09/07/16) Objective . Vital Signs Date Time Temp Pulse Resp B/P Pulse Ox O2 Delivery O2 Flow Rate FiO2 09/17/16 12:09 95 40 09/17/16 07:38 98 40 09/17/16 06:00 83 09/17/16 04:07 100 40 09/17/16 04:00 101.8 18 18 126/57 100 09/17/16 04:00 87 09/17/16 02:00 85 09/17/16 01:06 100 40 09/17/16 00:00 101.3 86 22 103/60 100 09/17/16 00:00 86 09/16/16 22:03 100 40 09/16/16 22:00 83 09/16/16 20:00 100.5 80 18 145/72 100 09/16/16 20:00 80 09/16/16 19:16 100 40 09/16/16 18:00 90 09/16/16 16:00 100.0 90 19 103/58 09/16/16 16:00 90 09/16/16 14:00 87 09/16/16 09/16/16 09/17/16 15:00 23:00 07:00 Intake Total 1489 ml 1055 ml 1030 ml Output Total 175 ml 270 ml 720 ml Balance 1314 ml 785 ml 310 ml IV Total 1489 ml 995 ml 970 ml Tube Irrigant 60 ml 60 ml Output Urine Total 75 ml 20 ml 20 ml Stool Total 100 ml 100 ml 400 ml Gastric Drainage Total 150 ml 300 ml . Laboratory Tests Test 09/16/16 09/17/16 05:05 04:45 White Blood Count 20.1 TH/MM3 22.9 TH/MM3 Red Blood Count 4.05 MIL/MM3 3.82 MIL/MM3 Hemoglobin 12.1 GM/DL 11.2 GM/DL Hematocrit 36.5 % 34.2 % Mean Corpuscular Volume 90.3 FL 89.5 FL Mean Corpuscular Hemoglobin 29.8 PG 29.3 PG Mean Corpuscular Hemoglobin 33.0 % 32.7 % Concent Red Cell Distribution Width 15.5 % 15.6 % Platelet Count 298 TH/MM3 252 TH/MM3 Mean Platelet Volume 8.9 FL 9.4 FL Neutrophils (%) (Auto) 79.2 % 84.1 % Lymphocytes (%) (Auto) 9.0 % 4.8 % Monocytes (%) (Auto) 9.6 % 8.9 % Eosinophils (%) (Auto) 1.8 % 2.0 % Basophils (%) (Auto) 0.4 % 0.2 % Neutrophils # (Auto) 15.9 TH/MM3 19.3 TH/MM3 Lymphocytes # (Auto) 1.8 TH/MM3 1.1 TH/MM3 Monocytes # (Auto) 1.9 TH/MM3 2.0 TH/MM3 Eosinophils # (Auto) 0.4 TH/MM3 0.5 TH/MM3 Basophils # (Auto) 0.1 TH/MM3 0.1 TH/MM3 CBC Comment DIFF FINAL DIFF FINAL Differential Comment Laboratory Tests Test 09/15/16 09/16/16 09/17/16 21:37 05:05 04:45 Lactic Acid Level 1.5 mmol/L Sodium Level 139 MEQ/L 134 MEQ/L Potassium Level 3.8 MEQ/L 3.7 MEQ/L Chloride Level 100 MEQ/L 96 MEQ/L Carbon Dioxide Level 23.5 MEQ/L 21.4 MEQ/L Anion Gap 16 MEQ/L 17 MEQ/L Blood Urea Nitrogen 77 MG/DL 87 MG/DL Creatinine 8.48 MG/DL 10.92 MG/DL Estimat Glomerular Filtration 6 ML/MIN 5 ML/MIN Rate Random Glucose 260 MG/DL 255 MG/DL Calcium Level 8.8 MG/DL 8.2 MG/DL Total Bilirubin 0.6 MG/DL Aspartate Amino Transf 1122 U/L (AST/SGOT) Alanine Aminotransferase 1526 U/L (ALT/SGPT) Alkaline Phosphatase 65 U/L Total Protein 7.3 GM/DL Albumin 2.8 GM/DL Microbiology Date/Time Procedure Status Source Growth 09/15/16 21:30 Aerobic Blood Culture - Preliminary Resulted Blood Other NO GROWTH IN 2 DAYS 09/15/16 21:30 Anaerobic Blood Culture - Preliminary Resulted Blood Other NO GROWTH IN 2 DAYS 09/15/16 21:37 Aerobic Blood Culture - Preliminary Resulted Blood Other NO GROWTH IN 2 DAYS 09/15/16 21:37 Anaerobic Blood Culture - Preliminary Resulted Blood Other NO GROWTH IN 2 DAYS 09/16/16 01:45 Urine Culture - Preliminary Resulted Urine Catheterized Urine NO GROWTH IN 24 HOURS. 09/17/16 10:00 Aerobic Blood Culture Received Blood Peripheral Pending 09/17/16 10:00 Anaerobic Blood Culture Received Blood Peripheral Pending 09/17/16 10:07 Aerobic Blood Culture Received Blood Peripheral Pending 09/17/16 10:07 Anaerobic Blood Culture Received Blood Peripheral Pending Imaging Last Impressions Chest X-Ray 09/15/16 1621 Signed Impressions: Service Date/Time: Thursday, September 15, 2016 16:33 - CONCLUSION: 1. Uncomplicated line placement. No evidence of pneumothorax. Wesley Chaudhari MD Head CT 09/15/16 0000 Signed Impressions: Service Date/Time: Thursday, September 15, 2016 10:15 - CONCLUSION: 1. Sizable area of decreased attenuation in the left MCA distribution most consistent with subacute cortical infarct. This there is stable compared to previous MR dated 09/09/16. Sanket Gonzalez MD Central Venous Line 09/15/16 0000 Signed Impressions: Service Date/Time: Thursday, September 15, 2016 00:00 - CONCLUSION: Uncomplicated line placement as above. Wesley Chaudhari MD Abdomen/Pelvis CT 09/15/16 0000 Signed Impressions: Service Date/Time: Thursday, September 15, 2016 17:00 - CONCLUSION: 1. Gaseous distension of the stomach. 2. I do not see evidence for significant colitis. Lowell Gonzalez MD FACR Catheter Placement X-Ray 09/14/16 0000 Signed Impressions: Service Date/Time: Wednesday, September 14, 2016 00:00 - CONCLUSION: Uncomplicated line placement as above. Wesley Chaudhari MD Carotid Artery Ultrasound 09/13/16 0000 Signed Impressions: Service Date/Time: Tuesday, September 13, 2016 16:46 - CONCLUSION: Significant plaque remains evident in the carotid bifurcations. Poor visualization and difficulty velocity sampling of the proximal internal carotid arteries was again encountered. Significant carotid stenosis cannot be excluded. Nonvisualization of the vertebral arteries. Mack Brizuela MD Brain MRI 09/09/16 0000 Signed Impressions: Service Date/Time: August 16:36 - CONCLUSION: 1. Findings demonstrate an acute infarction in the left sylvian region, nonhemorrhagic. 2. Small air-fluid level right maxillary sinus and mild bilateral ethmoid sinus disease. Suresh Diaz MD Renal Ultrasound 09/08/16 0000 Signed Impressions: Service Date/Time: Thursday, September 08, 2016 16:04 - CONCLUSION: Large 6.3 cm cyst lower pole laterally left kidney. No evidence of hydronephrosis or obstructive uropathy.. Christian Cooper MD Physical Exam GENERAL: Obese male patient, in no apparent distress. SKIN: No rashes, ecchymoses or lesions. Cool and dry. HEAD: Atraumatic. Normocephalic. No temporal or scalp tenderness. EYES: Pupils equal round and reactive. Extraocular motions intact. No scleral icterus. No injection or drainage. ENT: Intubated. Throat without erythema, tonsillar hypertrophy or exudate. Uvula midline. Airway patent. NECK: Trachea midline. Supple, nontender, no meningeal signs. CARDIOVASCULAR: Heart sounds audible. RESPIRATORY: Clear to auscultation. Breath sounds equal bilaterally. GASTROINTESTINAL: Abdomen soft, non-tender, nondistended. MUSCULOSKELETAL: Extremities without clubbing, cyanosis, or edema. NEUROLOGICAL: Not on any sedation but unresponsive. Not moving any extremities for me. No response to deep painful stimuli. Psych did not be assessed IV line sites with no evidence of infection. Assessment & Plan Remarks Septic shock with multiorgan dysfunction syndrome Aspiration Pneumonia Cl diff colitis (CT can have no evidence in initial stages of Cdiff Colitis) Other sources looked at: CXR negative, UA no growth at 24 hrs, Central line infection but blood cultures negative Ileus vs Gaseous distention of stomach: tube feeds on airway suctioning. Acute resp failure on vent. Acute metabolic encephalopathy: stroke, sepsis, metabolic. Acute renal failure: meds, sepsis, ATN on HD now. CAD, [place] Acute stroke Recs Continue Vanco oral for Cdiff DC Flagyl IV (increasing LFTs) DC Micafungin IV (2 sets of blood cultures so far with no growth) Continue Meropenem IV (ASP: worsening sepsis on Zosyn IV) Continue Zyvox IV (possible MRSA pneumonia will deescalate based on sputum cultures) Sputum cultures today. Due to increasing LFTs: Dc flagyl IV, DC Micafungin IV, Atorvastatin on hold. Check CK, Lipase, repeat LFTs, US Liver GB Follow cultures Follow clinically d.w . to cover for me this weekend. Era Becker MD Sep 17, 2016 13:48
--- NOTE | 2016-09-17 14:35 | PD.CARD.PN ---
Subjective Subjective Remarks Intubated, sedated Objective Medications Current Medications Medications (Trade) Dose Ordered Sig/Eric Route Start Time Stop Time Status Last Admin (Ecotrin Ec) 81 mg DAILY PO 09/08/16 09:00 09/15/16 08:11 (Plavix) 75 mg DAILY PO 09/08/16 09:00 09/17/16 08:20 (Imdur) 60 mg DAILY@07 PO 09/08/16 07:00 Hold 09/14/16 04:48 (NS Flush) 2 ml UNSCH PRN IV FLUSH 09/07/16 21:30 09/14/16 23:58 (NS Flush) 2 ml BID IV FLUSH 09/08/16 09:00 09/17/16 08:22 (Morphine Inj) 2 mg Q2H PRN IV 09/07/16 21:30 09/14/16 23:57 (Ativan Inj) 0.5 mg Q2HR PRN IV 09/07/16 21:30 09/14/16 23:57 (Zofran Inj) 4 mg Q6H PRN IV 09/07/16 21:30 09/08/16 22:00 (Reglan Inj) 5 mg Q6H PRN IV 09/07/16 21:30 09/16/16 17:54 Miscellaneous Information 1 Q361D XX 09/07/16 21:30 (Chlorhexidine 2% Cloth) Taper DAILY@04 TOP 09/08/16 04:00 09/04/17 03:59 09/17/16 04:00 (Chlorhexidine 2% Cloth) 3 pack UNSCH PRN TOP 09/07/16 21:30 (Apresoline Inj) 20 mg Q4H PRN IV PUSH 09/08/16 04:30 09/13/16 21:29 (D50w (Vial) Inj) 25 ml UNSCH PRN IV PUSH 09/08/16 12:45 (Glucagon Inj) 1 mg UNSCH PRN OTHER 09/08/16 12:45 (NovoLIN R SUPPLEMENTAL SCALE) 1 Q4H SQ 09/08/16 13:00 09/17/16 08:20 (Lopressor) 50 mg Q8H PO 09/09/16 14:00 Hold 09/14/16 20:56 (Heparin Inj) 5,000 units Q12HR SQ 09/09/16 09:00 09/17/16 08:20 (Lacrilube Opht Oint) 1 applic BID EACH EYE 09/09/16 21:00 09/16/16 20:17 (Peridex 0.12% Liq) 15 ml BID@08,20 MT 09/10/16 20:00 09/17/16 08:25 Docusate Sodium 100 mg 100 mg BID PO 09/11/16 10:00 09/17/16 08:19 (NS 1000 ml Inj) 1,000 ml @ 5 mls/hr Q24H IV 09/13/16 11:00 09/17/16 08:56 (Protonix Inj) 40 mg Q12H IV PUSH 09/13/16 20:00 09/17/16 08:26 Heparin Sodium (Porcine) 8000 units 8,000 units UNSCH PRN IVF 09/14/16 11:00 (NS 1000 ml Inj) 1,000 ml @ 0 mls/hr Q0M PRN IV 09/14/16 10:48 09/17/16 08:57 (Mannitol Inj) 12.5 gm UNSCH PRN IV 09/14/16 11:00 09/17/16 08:58 (Albumin 25% Inj) 25 gm UNSCH PRN IV 09/14/16 11:00 09/17/16 08:58 (NS Flush) 5 ml UNSCH PRN IVF 09/14/16 11:00 09/17/16 08:57 (Heparin Inj) UNSCH PRN .XX 09/14/16 11:00 09/17/16 09:02 (Gentamicin (Dialysis) Inj) 20 mg UNSCH PRN IV 09/14/16 11:00 09/17/16 09:02 (Zofran Inj) 4 mg UNSCH PRN IV 09/14/16 11:00 (Benadryl) 25 mg UNSCH PRN PO 09/14/16 11:00 (Nitrostat Sl) 0.4 mg UNSCH PRN SL 09/14/16 11:00 (Catapres) 0.1 mg UNSCH PRN PO 09/14/16 11:00 (Gelfoam 12 Mm/7 Mm Top) 1 foam UNSCH PRN TOP 09/14/16 11:00 (NS Flush) UNSCH PRN IVF 09/14/16 16:00 Heparin Sodium (Porcine) UNSCH PRN IVF 09/14/16 16:00 (Neosynephrine Inj/D5W 500 ml Inj) 500 ml @ 0 mls/hr TITRATE IV 09/15/16 10:00 09/17/16 05:20 Terbutaline Sulfate 1 mg 1 mg UNSCH PRN SQ 09/15/16 09:00 (Diprivan 1000 Mg/100ml Inj) 100 ml @ 0 mls/hr TITRATE IV 09/15/16 13:45 (VANCOMYCIN for oral use only) 125 mg QID PO 09/15/16 18:00 09/17/16 14:12 (NS Flush) DAILY IVF 09/16/16 09:00 09/17/16 08:22 IV Flush UNSCH PRN IVF 09/15/16 16:45 (Merrem Inj/NS Inj) 100 ml @ 200 mls/hr Q8H IV 09/15/16 20:00 09/17/16 12:00 Fentanyl Citrate 50 mcg 50 mcg Q1H PRN IV PUSH 09/15/16 23:30 (fentaNYL DRIP) 250 ml @ 0 mls/hr TITRATE IV 09/15/16 23:30 09/16/16 00:31 Acetaminophen 650 mg 650 mg Q6H PRN IV 09/16/16 01:45 (Zyvox 600 Mg Premix) 300 ml @ 300 mls/hr Q12H IV 09/16/16 16:00 09/17/16 04:04 Vital Signs / I&O Vital Signs Date Time Temp Pulse Resp B/P Pulse Ox O2 Delivery O2 Flow Rate FiO2 09/17/16 12:09 95 40 09/17/16 07:38 98 40 09/17/16 06:00 83 09/17/16 04:07 100 40 09/17/16 04:00 101.8 18 18 126/57 100 09/17/16 04:00 87 09/17/16 02:00 85 09/17/16 01:06 100 40 09/17/16 00:00 101.3 86 22 103/60 100 09/17/16 00:00 86 09/16/16 22:03 100 40 09/16/16 22:00 83 09/16/16 20:00 100.5 80 18 145/72 100 09/16/16 20:00 80 09/16/16 19:16 100 40 09/16/16 18:00 90 09/16/16 16:00 100.0 90 19 103/58 09/16/16 16:00 90 I/O 09/16/16 09/16/16 09/16/16 09/17/16 09/17/16 09/17/16 07:00 15:00 23:00 07:00 15:00 23:00 Intake Total 915 ml 1489 ml 1055 ml 1030 ml Output Total 320 ml 175 ml 270 ml 720 ml 4000 ml Balance 595 ml 1314 ml 785 ml 310 ml -4000 ml IV Total 855 ml 1489 ml 995 ml 970 ml Tube Irrigant 60 ml 60 ml 60 ml Output Urine Total 20 ml 75 ml 20 ml 20 ml Stool Total 200 ml 100 ml 100 ml 400 ml Gastric Drainage Total 100 ml 150 ml 300 ml Hemodialysis 4000 ml Physical Exam GENERAL: Intubated, sedated SKIN: Warm and dry. HEAD: Normocephalic. Facial asymetry. EYES: No scleral icterus. No injection or drainage. NECK: Supple, trachea midline. No JVD or lymphadenopathy. CARDIOVASCULAR: Regular rate and rhythm without murmurs, gallops, or rubs. RESPIRATORY: Breath sounds equal bilaterally. No accessory muscle use. GASTROINTESTINAL: Abdomen soft, non-tender, nondistended, obese MUSCULOSKELETAL: No cyanosis, or edema. Groins stable. NEURO: aphasic Laboratory Laboratory Tests Test 09/17/16 04:45 White Blood Count 22.9 TH/MM3 Red Blood Count 3.82 MIL/MM3 Hemoglobin 11.2 GM/DL Hematocrit 34.2 % Mean Corpuscular Volume 89.5 FL Mean Corpuscular Hemoglobin 29.3 PG Mean Corpuscular Hemoglobin 32.7 % Concent Red Cell Distribution Width 15.6 % Platelet Count 252 TH/MM3 Mean Platelet Volume 9.4 FL Neutrophils (%) (Auto) 84.1 % Lymphocytes (%) (Auto) 4.8 % Monocytes (%) (Auto) 8.9 % Eosinophils (%) (Auto) 2.0 % Basophils (%) (Auto) 0.2 % Neutrophils # (Auto) 19.3 TH/MM3 Lymphocytes # (Auto) 1.1 TH/MM3 Monocytes # (Auto) 2.0 TH/MM3 Eosinophils # (Auto) 0.5 TH/MM3 Basophils # (Auto) 0.1 TH/MM3 CBC Comment DIFF FINAL Differential Comment Sodium Level 134 MEQ/L Potassium Level 3.7 MEQ/L Chloride Level 96 MEQ/L Carbon Dioxide Level 21.4 MEQ/L Anion Gap 17 MEQ/L Blood Urea Nitrogen 87 MG/DL Creatinine 10.92 MG/DL Estimat Glomerular Filtration 5 ML/MIN Rate Random Glucose 255 MG/DL Calcium Level 8.2 MG/DL Total Bilirubin 0.6 MG/DL Aspartate Amino Transf 1122 U/L (AST/SGOT) Alanine Aminotransferase 1526 U/L (ALT/SGPT) Alkaline Phosphatase 65 U/L Total Protein 7.3 GM/DL Albumin 2.8 GM/DL Imaging Last Impressions Liver Ultrasound 09/17/16 1030 Signed Impressions: Service Date/Time: Saturday, September 17, 2016 11:01 - CONCLUSION: 1. Minimally complex cyst right mid kidney. 2. Liver mildly enlarged. Cesar Mcfadden MD Abdomen X-Ray 09/17/16 0600 Signed Impressions: Service Date/Time: Saturday, September 17, 2016 05:05 - CONCLUSION: Nonspecific abdomen appearance. Michael Ross MD Chest X-Ray 09/15/16 1621 Signed Impressions: Service Date/Time: Thursday, September 15, 2016 16:33 - CONCLUSION: 1. Uncomplicated line placement. No evidence of pneumothorax. Wesley Chaudhari MD Head CT 09/15/16 0000 Signed Impressions: Service Date/Time: Thursday, September 15, 2016 10:15 - CONCLUSION: 1. Sizable area of decreased attenuation in the left MCA distribution most consistent with subacute cortical infarct. This there is stable compared to previous MR dated 09/09/16. Sanket Gonzalez MD Central Venous Line 09/15/16 0000 Signed Impressions: Service Date/Time: Thursday, September 15, 2016 00:00 - CONCLUSION: Uncomplicated line placement as above. Wesley Chaudhari MD Abdomen/Pelvis CT 09/15/16 0000 Signed Impressions: Service Date/Time: Thursday, September 15, 2016 17:00 - CONCLUSION: 1. Gaseous distension of the stomach. 2. I do not see evidence for significant colitis. Lowell Gonzalez MD FACR Catheter Placement X-Ray 09/14/16 0000 Signed Impressions: Service Date/Time: Wednesday, September 14, 2016 00:00 - CONCLUSION: Uncomplicated line placement as above. Wesley Chaudhari MD Carotid Artery Ultrasound 09/13/16 0000 Signed Impressions: Service Date/Time: Tuesday, September 13, 2016 16:46 - CONCLUSION: Significant plaque remains evident in the carotid bifurcations. Poor visualization and difficulty velocity sampling of the proximal internal carotid arteries was again encountered. Significant carotid stenosis cannot be excluded. Nonvisualization of the vertebral arteries. Mack Brizuela MD Brain MRI 09/09/16 0000 Signed Impressions: Service Date/Time: August 16:36 - CONCLUSION: 1. Findings demonstrate an acute infarction in the left sylvian region, nonhemorrhagic. 2. Small air-fluid level right maxillary sinus and mild bilateral ethmoid sinus disease. Suresh Diaz MD Renal Ultrasound 09/08/16 0000 Signed Impressions: Service Date/Time: Thursday, September 08, 2016 16:04 - CONCLUSION: Large 6.3 cm cyst lower pole laterally left kidney. No evidence of hydronephrosis or obstructive uropathy.. Christian Cooper MD Assessment and Plan Problem List: (1) Unstable angina (2) CAD (coronary artery disease) of bypass graft (3) CHF (congestive heart failure), NYHA class II (4) Cardiomyopathy, ischemic (5) Chronic kidney disease (6) Suspected cerebrovascular accident (7) Abnormal nuclear stress test Assessment and Plan Continue ICU monitoring. Wean vent as tolerated. We need to continue Plavix and ASA per NG to prevent stent thrombosis. BP controlled. Neurology evaluation and management for CVA confirmed by MRI. No evidence of ICH on head CT. Groins remain stable. Renal fx worse, now on dialysis. MS not improving, likely multifactorial. No new cardiac issues. Problem Qualifiers (1) Chronic kidney disease: Qualified Code: N18.4 - Chronic kidney disease, stage 4 (severe) Martha Cummins MD Sep 17, 2016 14:35
[2016-09-17] MEDS: fentaNYL DRIP 250 ML IV SCH (15:12)
[2016-09-17 15:33] LABS: INDIRECT BILIRUBIN 0.3 MG/DL (0.0-0.8); TOTAL BILIRUBIN ADULT 0.6 MG/DL (0.2-1.0)
[2016-09-17 16:03] LABS: INTERNATIONAL NORMALIZED RATIO 1.2 RATIO; PROTHROMBIN TIME - PATIENT 13.6 SEC (9.8-11.6)
--- NOTE | 2016-09-17 18:13 | HHI.GIFU ---
Subjective Remarks Patient is sedated on a vent, he continue to be hypotensive requiring pressors, according to nurse, not able to hold his pressure with out pressors, family by bed side, agreeing to have PEG placed (Aleksandar James) Objective Vitals I&O Vital Signs Date Time Temp Pulse Resp B/P Pulse Ox O2 Delivery O2 Flow Rate FiO2 09/17/16 16:28 100 40 09/17/16 16:00 99.1 98 19 110/65 93 09/17/16 16:00 98 09/17/16 14:00 90 09/17/16 12:09 95 40 09/17/16 12:00 100.3 84 18 131/67 99 09/17/16 12:00 84 09/17/16 10:00 82 09/17/16 08:00 82 09/17/16 08:00 101.2 82 22 113/59 99 09/17/16 07:38 98 40 09/17/16 06:00 83 09/17/16 04:07 100 40 09/17/16 04:00 101.8 18 18 126/57 100 09/17/16 04:00 87 09/17/16 02:00 85 09/17/16 01:06 100 40 09/17/16 00:00 101.3 86 22 103/60 100 09/17/16 00:00 86 09/16/16 22:03 100 40 09/16/16 22:00 83 09/16/16 20:00 100.5 80 18 145/72 100 09/16/16 20:00 80 09/16/16 19:16 100 40 I/O 09/16/16 09/16/16 09/16/16 09/17/16 09/17/16 09/17/16 07:00 15:00 23:00 07:00 15:00 23:00 Intake Total 915 ml 1489 ml 1055 ml 1030 ml 887 ml Output Total 320 ml 175 ml 270 ml 720 ml 4520 ml Balance 595 ml 1314 ml 785 ml 310 ml -3633 ml IV Total 855 ml 1489 ml 995 ml 970 ml 827 ml Tube Irrigant 60 ml 60 ml 60 ml 60 ml Output Urine Total 20 ml 75 ml 20 ml 20 ml 70 ml Stool Total 200 ml 100 ml 100 ml 400 ml 150 ml Gastric Drainage Total 100 ml 150 ml 300 ml 300 ml Hemodialysis 4000 ml Laboratory Laboratory Tests Test 09/17/16 09/17/16 04:45 15:11 White Blood Count 22.9 Red Blood Count 3.82 Hemoglobin 11.2 Hematocrit 34.2 Mean Corpuscular Volume 89.5 Mean Corpuscular Hemoglobin 29.3 Mean Corpuscular Hemoglobin 32.7 Concent Red Cell Distribution Width 15.6 Platelet Count 252 Mean Platelet Volume 9.4 Neutrophils (%) (Auto) 84.1 Lymphocytes (%) (Auto) 4.8 Monocytes (%) (Auto) 8.9 Eosinophils (%) (Auto) 2.0 Basophils (%) (Auto) 0.2 Neutrophils # (Auto) 19.3 Lymphocytes # (Auto) 1.1 Monocytes # (Auto) 2.0 Eosinophils # (Auto) 0.5 Basophils # (Auto) 0.1 CBC Comment DIFF FINAL Differential Comment Sodium Level 134 Potassium Level 3.7 Chloride Level 96 Carbon Dioxide Level 21.4 Anion Gap 17 Blood Urea Nitrogen 87 Creatinine 10.92 Estimat Glomerular Filtration 5 Rate Random Glucose 255 Calcium Level 8.2 Total Bilirubin 0.6 Direct Bilirubin 0.3 Indirect Bilirubin 0.3 Aspartate Amino Transf 1148 (AST/SGOT) Alanine Aminotransferase 1640 (ALT/SGPT) Alkaline Phosphatase 63 Total Protein 7.4 Albumin 2.9 Lipase 326 Prothrombin Time 13.6 Prothromb Time International 1.2 Ratio Date/Time Procedure Status Source Growth 09/17/16 13:20 Gram Stain Received Sputum Endotracheal Pending 09/17/16 13:20 Sputum Culture Received Sputum Endotracheal Pending 09/17/16 10:07 Aerobic Blood Culture Received Blood Peripheral Pending 09/17/16 10:07 Anaerobic Blood Culture Received Blood Peripheral Pending 09/16/16 01:45 Urine Culture - Preliminary Resulted Urine Catheterized Urine NO GROWTH IN 24 HOURS. 09/15/16 21:37 Aerobic Blood Culture - Preliminary Resulted Blood Other NO GROWTH IN 2 DAYS 09/15/16 21:37 Anaerobic Blood Culture - Preliminary Resulted Blood Other NO GROWTH IN 2 DAYS 09/14/16 08:45 Urine Culture - Final Complete Urine Catheterized Urine NO GROWTH IN 48 HOURS. Imaging Last Impressions Liver Ultrasound 09/17/16 1030 Signed Impressions: Service Date/Time: Saturday, September 17, 2016 11:01 - CONCLUSION: 1. Minimally complex cyst right mid kidney. 2. Liver mildly enlarged. Cesar F. Tocci, MD Abdomen X-Ray 09/17/16 0600 Signed Impressions: Service Date/Time: Saturday, September 17, 2016 05:05 - CONCLUSION: Nonspecific abdomen appearance. Michael Ross MD Chest X-Ray 09/15/16 1621 Signed Impressions: Service Date/Time: Thursday, September 15, 2016 16:33 - CONCLUSION: 1. Uncomplicated line placement. No evidence of pneumothorax. Wesley Chuadhari MD Head CT 09/15/16 0000 Signed Impressions: Service Date/Time: Thursday, September 15, 2016 10:15 - CONCLUSION: 1. Sizable area of decreased attenuation in the left MCA distribution most consistent with subacute cortical infarct. This there is stable compared to previous MR dated 09/09/16. Sanket Gonzalez MD Central Venous Line 09/15/16 0000 Signed Impressions: Service Date/Time: Thursday, September 15, 2016 00:00 - CONCLUSION: Uncomplicated line placement as above. Wesley Chaudhari MD Abdomen/Pelvis CT 09/15/16 0000 Signed Impressions: Service Date/Time: Thursday, September 15, 2016 17:00 - CONCLUSION: 1. Gaseous distension of the stomach. 2. I do not see evidence for significant colitis. Lowell Gonzalez MD FACR Catheter Placement X-Ray 09/14/16 0000 Signed Impressions: Service Date/Time: Wednesday, September 14, 2016 00:00 - CONCLUSION: Uncomplicated line placement as above. Wesley Chaudhari MD Carotid Artery Ultrasound 09/13/16 0000 Signed Impressions: Service Date/Time: Tuesday, September 13, 2016 16:46 - CONCLUSION: Significant plaque remains evident in the carotid bifurcations. Poor visualization and difficulty velocity sampling of the proximal internal carotid arteries was again encountered. Significant carotid stenosis cannot be excluded. Nonvisualization of the vertebral arteries. Mack Brizuela MD Brain MRI 09/09/16 0000 Signed Impressions: Service Date/Time: August 16:36 - CONCLUSION: 1. Findings demonstrate an acute infarction in the left sylvian region, nonhemorrhagic. 2. Small air-fluid level right maxillary sinus and mild bilateral ethmoid sinus disease. Suresh Diaz MD Renal Ultrasound 09/08/16 0000 Signed Impressions: Service Date/Time: Thursday, September 08, 2016 16:04 - CONCLUSION: Large 6.3 cm cyst lower pole laterally left kidney. No evidence of hydronephrosis or obstructive uropathy.. Christian Cooper MD Physical Exam HEENT: Normocephalic; atraumatic; no jaundice. NECK: Supple. CHEST: CTA, OETT to vent CARDIAC: RRR ABDOMEN: Soft, nondistended, nontender; no hepatosplenomegaly; bowel sounds are present in all four quadrants. OGT with bilious material EXTREMITIES: Generalized edema. SKIN: Normal; no rash; no jaundice. DEVELOPMENT EDITOR: Intubated unresponsive (Aleksandar James) Assessment and Plan Plan ASSESSMENT: - Dysphagia/FEN. Patient with known history of coronary artery disease and a recent CABG who also apparently had recent CVA, currently intubated patient also appears to be septic and hypotensive on vasopressors. Poor prognosis. Palliative care following, family in the room, they are agreeing to have PEG tube. - Gaseous distention of stomach. x-ray on (09/17/16) nonspecific abdomen appearance. OGT to LIWS, bilious material. PLAN: - Okay to start TF through OGT - EGD/PEG once medically stable, continue to be hypotensive - Obtain consents - Pt seen and examined by Dr. Kent and myself and this note is written on his behalf (Aleksandar James) Physician Comments Patient seen and examined Agree with above Continue with current supportive care Monitor labs Plan PEG tube once patient off vasopressors (Rangel Kent MD) Aleksandar James Sep 17, 2016 18:13 Rangel Kent MD Sep 17, 2016 23:50
[2016-09-17 18:16] LABS: INDIRECT BILIRUBIN 0.6 MG/DL (0.0-0.8)
[2016-09-17] MEDS: LORazepam 2 MG/ML VIAL IV PRN (20:43)
[2016-09-18] VITALS (19 sets, daily range): BP systolic 98–129; BP diastolic 55–70; PULSE 75–111; RESP 10–24; TEMP 98.9–100; O2SAT 95–100
[2016-09-18] MEDS: INSULIN NovoLIN REGULAR SUPPLEMENTAL SCALE SQ SCH ×6 (01:28→20:36)
[2016-09-18] MEDS: CHLORHEXIDINE GLUCONATE 2 % 1 PACK (2 CLOTHS) TOP SCH (02:32)
[2016-09-18] MEDS: MEROPENEM INJ 500 MG in SODIUM CHLORIDE 0.9% INJ 100 ML IV SCH ×3 (03:31→20:35)
[2016-09-18] MEDS: LINEZOLID 600 MG PREMIX 300 ML IV SCH ×2 (03:32→16:26)
[2016-09-18 04:54] LABS: ALKALINE PHOSPHATASE 83 U/L (45-117); ALT (GPT) 1428 U/L (12-78); ANION GAP 15 MEQ/L (5-15); AST (GOT) 907 U/L (15-37); BICARBONATE 23.9 MEQ/L (21.0-32.0); BLOOD UREA NITROGEN 69 MG/DL (7-18); CHLORIDE 95 MEQ/L (98-107); GLOMERULAR FILTRATION RATE 5 ML/MIN (>89); POTASSIUM 3.8 MEQ/L (3.5-5.1); SODIUM (NA) 134 MEQ/L (136-145); TOTAL BILIRUBIN ADULT 0.8 MG/DL (0.2-1.0)
[2016-09-18 04:59] LABS: AUTOMATED NEUTROPHIL # 22.9 TH/MM3 (1.8-7.7); BASOPHIL # 0.1 TH/MM3 (0-0.2); BASOPHIL % 0.2 % (0.0-2.0); EOSINOPHIL # 0.5 TH/MM3 (0-0.4); EOSINOPHIL % 1.8 % (0.0-4.0); HEMATOCRIT 35.5 % (39.0-51.0); LYMPH % 3.4 % (9.0-44.0); LYMPHOCYTE # 0.9 TH/MM3 (1.0-4.8); MEAN CORPUSCULAR HEMOGLOBIN 29.8 PG (27.0-34.0); MEAN CORPUSCULAR HGB CONC 33.1 % (32.0-36.0); MONO % 9.4 % (0.0-8.0); NEUT % 85.2 % (16.0-70.0); PLATELET COUNT 271 TH/MM3 (150-450); RED BLOOD COUNT 3.94 MIL/MM3 (4.50-5.90); RED CELL DISTRIBUTION WIDTH 15.3 % (11.6-17.2); WHITE BLOOD COUNT 26.9 TH/MM3 (4.0-11.0)
[2016-09-18] MEDS: fentaNYL DRIP 250 ML IV SCH (05:06)
[2016-09-18 05:12] LABS: HEMO FLAGS AUTO DIFF
[2016-09-18] MEDS: PHENYLEPHRINE INJ 40 MG in DEXTROSE 5% IN WATE 500 ML INJ 496 ML IV SCH ×2 (06:10)
[2016-09-18 06:39] LABS: SCAN/DIFF AUTO DIFF CONFIRMED
--- NOTE | 2016-09-18 08:36 | HHI.CCPN ---
Subjective Remarks/Hospital Course 66-year-old gentleman with a history of coronary artery disease status post CABG underwent emergent cardiac catheterization by Dr. Cummins. Postprocedure his course is complicated by aphasia and right-sided weakness. 09/08 Patient was on BIPAP 14/7 with FIO2 25%. On Precedex and heparin drips. CT brain showed last night showed no acute process. Impela was removed this morning by Dr. Cummins. T:99.9 Renal function improving with Cr:2.5 from 3.0 hyperkalemic with K 6.1 09/09: Overnight remained on BiPAP predominantly for sleep apnea. Intermittently follows commands. Will check MRI of the brain today. Creatinine slightly worsened to 2.8. Consulted nephrology, hyperkalemia resolved 09/10: Remains on BiPAP, some interval worsening of respiratory status. Patient is more tachypneic chest x-ray shows left lower lobe infiltrate .Currently sedated with 0.5 g per KG per hour of Precedex. I will discontinue Precedex. MRI brain shows acute infarct left sylvian region. Creatinine slightly worse at 3. Low-grade fever Tmax 100.2, send blood and sputum culture and start Zosyn 09/11: Patient was intubated yesterday for progressively worsening respiratory failure, hypoxemia and altered mentation. On ventilator support patient's oxygenation has improved. He moves all extremities do not following commands. Chest x-ray shows no definite infiltrates 09/12: Extubated yesterday tolerating well oxygenation varghese and protecting airway. No fevers. Urine output 3.8 L in 24 hours with creatinine worsening from 3.9 to 4.5 today. Remains aphasic not following commands 09/13: Somnolent, received Ativan for agitation overnight. Urine output 4 L in 24 hours. Labs are pending at this time. Opens eyes to verbal stimulation, remains aphasic and did not follow commands 09/14 Patient appears somnolent. On no sedation. Renal function worse today with Cr: 7.31 from 5.40 and UO: 715ml in 24hrs. T:100.9 this morning. Remains aphasic. 09/15 Patient was placed on Amio drip overnight for Afib with RVR. HD initiated yesterday with removal 2L. He is currently receiving another HD treatment. Tmax 100.9. Patient remains encephalopathic and does not follow commands. TF was held due to high residuals. 09/16 Patient was intubated yesterday for airway protection. On Fentanyl drip for sedation on Neosyn. Tmax 104. C-diff PCR positive. CT abd/pelvis showed no acute process, gaseous distention. 09/17 Patient remains intubated and sedated with Fentanyl. On Neosyn 75 mics. T: 101.8 at 4 am. 09/18 Patient remains sedated and intubated. T:101.1 last night. On Neosyn 60 mics. Objective Vital Signs Date Time Temp Pulse Resp B/P Pulse Ox O2 Delivery O2 Flow Rate FiO2 09/18/16 08:05 100 40 09/18/16 06:00 76 09/18/16 04:00 100.0 18 129/62 09/15/16 16:00 Mechanical Ventilator 09/15/16 00:00 4.00 Intake and Output 09/17/16 09/17/16 09/18/16 08:00 16:00 00:00 Intake Total 1030 ml 887 ml 854 ml Output Total 720 ml 4520 ml 50 ml Balance 310 ml -3633 ml 804 ml Result Diagram: 09/18/16 0343 09/18/16 0343 Other Results Laboratory Tests Test 09/17/16 09/18/16 15:11 03:43 Prothrombin Time 13.6 SEC Prothromb Time International 1.2 RATIO Ratio Total Bilirubin 1.0 MG/DL 0.8 MG/DL Direct Bilirubin 0.4 MG/DL Indirect Bilirubin 0.6 MG/DL Aspartate Amino Transf 1187 U/L 907 U/L (AST/SGOT) Alanine Aminotransferase 1577 U/L 1428 U/L (ALT/SGPT) Alkaline Phosphatase 87 U/L 83 U/L Total Protein 8.3 GM/DL 8.3 GM/DL Albumin 3.5 GM/DL 3.3 GM/DL White Blood Count 26.9 TH/MM3 Red Blood Count 3.94 MIL/MM3 Hemoglobin 11.7 GM/DL Hematocrit 35.5 % Mean Corpuscular Volume 90.0 FL Mean Corpuscular Hemoglobin 29.8 PG Mean Corpuscular Hemoglobin 33.1 % Concent Red Cell Distribution Width 15.3 % Platelet Count 271 TH/MM3 Mean Platelet Volume 9.7 FL Neutrophils (%) (Auto) 85.2 % Lymphocytes (%) (Auto) 3.4 % Monocytes (%) (Auto) 9.4 % Eosinophils (%) (Auto) 1.8 % Basophils (%) (Auto) 0.2 % Neutrophils # (Auto) 22.9 TH/MM3 Lymphocytes # (Auto) 0.9 TH/MM3 Monocytes # (Auto) 2.5 TH/MM3 Eosinophils # (Auto) 0.5 TH/MM3 Basophils # (Auto) 0.1 TH/MM3 CBC Comment AUTO DIFF Differential Comment AUTO DIFF CONFIRMED Sodium Level 134 MEQ/L Potassium Level 3.8 MEQ/L Chloride Level 95 MEQ/L Carbon Dioxide Level 23.9 MEQ/L Anion Gap 15 MEQ/L Blood Urea Nitrogen 69 MG/DL Creatinine 9.56 MG/DL Estimat Glomerular Filtration 5 ML/MIN Rate Random Glucose 241 MG/DL Calcium Level 8.9 MG/DL Imaging Last Impressions Liver Ultrasound 09/17/16 1030 Signed Impressions: Service Date/Time: Saturday, September 17, 2016 11:01 - CONCLUSION: 1. Minimally complex cyst right mid kidney. 2. Liver mildly enlarged. Cesar Mcfadden MD Abdomen X-Ray 09/17/16 0600 Signed Impressions: Service Date/Time: Saturday, September 17, 2016 05:05 - CONCLUSION: Nonspecific abdomen appearance. Michael Ross MD Chest X-Ray 09/15/16 1621 Signed Impressions: Service Date/Time: Thursday, September 15, 2016 16:33 - CONCLUSION: 1. Uncomplicated line placement. No evidence of pneumothorax. Wesley Chaudhari MD Head CT 09/15/16 0000 Signed Impressions: Service Date/Time: Thursday, September 15, 2016 10:15 - CONCLUSION: 1. Sizable area of decreased attenuation in the left MCA distribution most consistent with subacute cortical infarct. This there is stable compared to previous MR dated 09/09/16. Sanket Gonzalez MD Central Venous Line 09/15/16 0000 Signed Impressions: Service Date/Time: Thursday, September 15, 2016 00:00 - CONCLUSION: Uncomplicated line placement as above. Wesley Chaudhari MD Abdomen/Pelvis CT 09/15/16 0000 Signed Impressions: Service Date/Time: Thursday, September 15, 2016 17:00 - CONCLUSION: 1. Gaseous distension of the stomach. 2. I do not see evidence for significant colitis. Lowell Gonzalez MD FACR Catheter Placement X-Ray 09/14/16 0000 Signed Impressions: Service Date/Time: Wednesday, September 14, 2016 00:00 - CONCLUSION: Uncomplicated line placement as above. Wesley Chaudhari MD Carotid Artery Ultrasound 09/13/16 0000 Signed Impressions: Service Date/Time: Tuesday, September 13, 2016 16:46 - CONCLUSION: Significant plaque remains evident in the carotid bifurcations. Poor visualization and difficulty velocity sampling of the proximal internal carotid arteries was again encountered. Significant carotid stenosis cannot be excluded. Nonvisualization of the vertebral arteries. Mack Brizuela MD Brain MRI 09/09/16 0000 Signed Impressions: Service Date/Time: August 16:36 - CONCLUSION: 1. Findings demonstrate an acute infarction in the left sylvian region, nonhemorrhagic. 2. Small air-fluid level right maxillary sinus and mild bilateral ethmoid sinus disease. Suresh Diaz MD Renal Ultrasound 09/08/16 0000 Signed Impressions: Service Date/Time: Thursday, September 08, 2016 16:04 - CONCLUSION: Large 6.3 cm cyst lower pole laterally left kidney. No evidence of hydronephrosis or obstructive uropathy.. Christian Cooper MD Objective Remarks GENERAL: Well-nourished, well-developed patient. On NC SKIN: Warm and dry. HEAD: Normocephalic. EYES: No scleral icterus. No injection or drainage. ENT: Oral cavity moist NECK: Supple, trachea midline. No JVD or lymphadenopathy. CARDIOVASCULAR: Regular rate and rhythm without murmurs, gallops, or rubs. RESPIRATORY: Breath sounds equal bilaterally. No accessory muscle use. GASTROINTESTINAL: Abdomen soft, non-tender, nondistended. MUSCULOSKELETAL: No cyanosis, or edema. BACK: Nontender without obvious deformity. EXTREMITIES: Somnolent but opens eyes to stimulation, aphasic. Blank stare, donot follow commands. Moving all extremities, weaker on R side A/P Problem List: (1) Acute ischemic left MCA stroke ICD Code: I63.512 Status: Acute (2) Acute renal failure ICD Code: N17.9 Status: Acute (3) CHF (congestive heart failure), NYHA class III ICD Code: I50.9 Status: Acute (4) Coronary artery disease involving [place] heart ICD Code: I25.10 Status: Chronic (5) HTN (hypertension) ICD Code: I10 Status: Acute (6) CKD (chronic kidney disease) ICD Code: N18.9 Status: Acute Assessment and Plan ASSESSMENT Acute left MCA stroke Aphasia with right hemiparesis Metabolic encephalopathy NSTEMI Known CAD C-diff colitis Obstructive sleep apnea UTI with enterococcus HCAP Acute hypoxemic respiratory failure-resolved Acute on chronic kidney disease Hyperkalemia-resolved DM HTN LEONARD Hyperlipidemia Plan Neuro: -On Fentanyl infusion. Monitor neuro status. Ativan PRN for agitation -Repeat CT brain 09/15: Sizable area of decreased attenuation in the left MCA distribution most consistent with subacute cortical infarct -MRI brain 09/09/16-acute left sylvian region infarct. CT brain 09/07: No acute disease. -Continue aspirin and Plavix. Neuro was following- Cr. Nguyen. -09/13 EEG: within normal. Pulm: -Extubated 09/11 -Continue with vent support keep sat >92% -Bronchodilators, ICU vent bundle, CPAP trials as khris -Family leaning toward transitioning to comfort care awaiting rest of family members to arrive. CV: -Wean off Neosyn drip monitor HR and BP keep MAP>65mmHg -Continue with ASA, Plavix. Imdur and Lopressor on hold. -Lipitor held for elevated LFT's -s/p cardiac cath 09/07 showed multivessel disease with 2/6 grafts patent, EF 40% . s/p PCI with stents of the saphenous venous graft to the first diagonal artery. -s/p removal Impella 09/08. Cardiology- Dr. Cummins : -Monitor renal function, I/O's, avoid nephrotoxins. -HD initiated 09/14 with removal 2L. HD per renal s/p HD yesterday with removal 4L. -Renal-Dr. Naidu. . GI: - On Protonix 40mg -OGT to LIWS, monitor gastric drainage .GI is following - Monitor LFT's, Hepatitis profile negative on 09/14 -US Liver: Minimally complex cyst right mid kidney. Liver mildly enlarged. ID: Leukocytosis C-diff colitis -Continue abx per ID ( PO Vanco, Merrem, Zyvox). Monitor for signs of infections ( Fever, WBC) -Pancultured 09/16 follow up on cxs -CT abd/pelvis: Gaseous distention, no acute process -KUB abdomen /- non specific bowel gas pattern Heme: -Monitor CBC Endo: -SSI( Medium) with accuchecks for glycemic control, add Levemir 5u Q12 GI prophylaxis - on Protonix 40mg Q12 DVT prophylaxis - SCD, Heparin 5000 units sq very 12 Palliative care is following. Awaiting family's decision re goals of care if they want aggressive care patient will likely need trach and PEG tube placement. Lines: Right Vascth placed 09/14, Right IJ CVP placed 09/15 CCT 30 mins Problem Qualifiers (1) Acute renal failure: Qualified Code: N17.0 - Acute renal failure with tubular necrosis Leroy Urena MD Sep 18, 2016 08:36
[2016-09-18] MEDS: VANCOMYCIN 500 MG VIAL (FOR ORAL USE ONLY) PO SCH ×4 (08:59→20:34)
[2016-09-18] MEDS: PANTOPRAZOLE SODIUM 40 MG VIAL IV PUSH SCH ×2 (08:59→20:35)
[2016-09-18] MEDS: CHLORHEXIDINE 0.12% (ORAL KIT) 15 ML CUP MT SCH ×2 (08:59→23:49)
[2016-09-18] MEDS: CLOPIDOGREL 75 MG TAB PO SCH (09:00)
[2016-09-18] MEDS: HEPARIN SODIUM - SQ 10,000 UNITS/ML VIAL SQ SCH ×2 (09:00→20:34)
[2016-09-18] MEDS: DOCUSATE SODIUM 100 MG/10 ML UDC PO SCH ×2 (09:00→20:36)
[2016-09-18] MEDS: ASPIRIN EC 81 MG TABEC PO SCH (09:00)
[2016-09-18] MEDS: SODIUM CHLORIDE 0.9% FLUSH 5 ML FLUSH IV FLUSH SCH ×2 (09:00→20:35)
[2016-09-18] MEDS: SODIUM CHLORIDE 0.9% FLUSH 5 ML FLUSH IVF SCH (09:00)
[2016-09-18] MEDS: SODIUM CHLOR 0.9% 1000 ML INJ 1,000 ML IV SCH (09:07)
[2016-09-18 09:41] LABS: CKMB 12.1 NG/ML (0.5-3.6)
[2016-09-18] MEDS: ARTIFICIAL TEARS OPTH OINT 3.5 APPLIC/3.5 GM TUBO EACH EYE SCH ×2 (10:17→20:37)
[2016-09-18] MEDS: INSULIN DETEMIR 100 UNITS/ML VIAL SQ SCH ×2 (10:17→20:35)
--- NOTE | 2016-09-18 11:57 | HHI.NPPN ---
Subjective History of Present Illness 66-year-old male with history of coronary artery disease status post CABG, osteoarthritis, diabetes, hyperlipidemia who was admitted there with unstable angina and underwent heart catheterization found to have significant blockages requiring stent and impella device, he has acute renal failure. Additional Remarks Patient remain unresponsive off sedation and Vent Objective Data Data 09/17/16 09/18/16 19:00 07:00 Intake Total 887 ml 1446 ml Output Total 4520 ml 450 ml Balance -3633 ml 996 ml IV Total 827 ml 1246 ml Tube Irrigant 60 ml Other 200 ml Output Urine Total 70 ml Stool Total 150 ml 450 ml Gastric Drainage Total 300 ml Hemodialysis 4000 ml Vital Signs Date Time Temp Pulse Resp B/P Pulse Ox O2 Delivery O2 Flow Rate FiO2 09/18/16 08:05 100 40 09/18/16 08:00 78 09/18/16 06:00 76 09/18/16 04:18 96 40 09/18/16 04:00 84 09/18/16 04:00 100.0 82 18 129/62 100 09/18/16 02:00 87 09/18/16 01:32 96 40 09/18/16 00:00 81 09/18/16 00:00 98.9 81 20 103/56 99 09/17/16 22:12 100 40 09/17/16 22:00 82 09/17/16 20:12 100 40 09/17/16 20:00 101.1 88 18 100/77 88 09/17/16 20:00 88 09/17/16 18:00 98 09/17/16 16:28 100 40 09/17/16 16:00 99.1 98 19 110/65 93 09/17/16 16:00 98 09/17/16 14:00 90 09/17/16 12:09 95 40 09/17/16 12:00 100.3 84 18 131/67 99 09/17/16 12:00 84 -: 09/18/16 0343 09/18/16 0343 Microbiology 09/17/16 Gram Stain - Final, Resulted 09/17/16 Sputum Culture, Resulted Pending Physical Exam General Appearance: Well Developed, Well Nourished Pulmonary Resp Exam: Crackles, Rhonchi, Decreased Bases, Diminished Breath Sounds Cardiology CV Exam: Regular, Normal Sinus Rhythm Gastrointestinal/Abdomen GI Exam: Soft, Non-Tender, Bowel Sounds Present, Distended Extremeties Extremities Exam: Moderate Edema, Pitting Edema, Dependent Edema Neurologic Neuro Exam: Sedated Assessment/Plan Problem List: (1) Acute renal failure Plan: on vasopressor BP better on vent intubated He has elevation in the creatinine and he is oliguric. Renal failure on hemodialysis HD 4 L UF yesterday , continue supportive care (2) Hyperkalemia Plan: Resolved (3) Chronic kidney disease Plan: He has stage III chronic kidney disease due to diabetic (4) CHF (congestive heart failure), NYHA class III Plan: Continue to monitor for improvement (5) Coronary artery disease involving [place] heart Plan: Review his bypass and stents (6) Hypertension, essential, benign Plan: Monitor blood pressure (7) Diabetes mellitus, type II Plan: Monitor blood glucose (8) UTI (lower urinary tract infection) Plan: Meropenem (9) CVA (cerebral vascular accident) Plan: remain unresponsive moves left side more (10) Need for prophylactic vaccination and inoculation against influenza (11) Clostridium difficile infection Plan: on PO Vanco Problem Qualifiers (1) Acute renal failure: Qualified Code: N17.0 - Acute renal failure with tubular necrosis (2) Chronic kidney disease: Qualified Code: N18.4 - Chronic kidney disease, stage 4 (severe) Marisol Naidu MD Sep 18, 2016 11:57
--- NOTE | 2016-09-18 13:03 | HHI.GIFU ---
Subjective Remarks Resting in bed on vent, in no distress. Still on vasopressors. Family wishing to proceed with PEG tube placement. (Elidia Black) Objective Vitals I&O Vital Signs Date Time Temp Pulse Resp B/P Pulse Ox O2 Delivery O2 Flow Rate FiO2 09/18/16 08:05 100 40 09/18/16 08:00 78 09/18/16 06:00 76 09/18/16 04:18 96 40 09/18/16 04:00 84 09/18/16 04:00 100.0 82 18 129/62 100 09/18/16 02:00 87 09/18/16 01:32 96 40 09/18/16 00:00 81 09/18/16 00:00 98.9 81 20 103/56 99 09/17/16 22:12 100 40 09/17/16 22:00 82 09/17/16 20:12 100 40 09/17/16 20:00 101.1 88 18 100/77 88 09/17/16 20:00 88 09/17/16 18:00 98 09/17/16 16:28 100 40 09/17/16 16:00 99.1 98 19 110/65 93 09/17/16 16:00 98 09/17/16 14:00 90 I/O 09/17/16 09/17/16 09/17/16 09/18/16 09/18/16 09/18/16 07:00 15:00 23:00 07:00 15:00 23:00 Intake Total 1030 ml 887 ml 854 ml 592 ml Output Total 720 ml 4520 ml 50 ml 400 ml Balance 310 ml -3633 ml 804 ml 192 ml IV Total 970 ml 827 ml 854 ml 392 ml Tube Irrigant 60 ml 60 ml Other 200 ml Output Urine Total 20 ml 70 ml Stool Total 400 ml 150 ml 50 ml 400 ml Gastric Drainage Total 300 ml 300 ml Hemodialysis 4000 ml Laboratory Laboratory Tests Test 09/17/16 09/18/16 15:11 03:43 Prothrombin Time 13.6 Prothromb Time International 1.2 Ratio Total Bilirubin 1.0 0.8 Direct Bilirubin 0.4 Indirect Bilirubin 0.6 Aspartate Amino Transf 1187 907 (AST/SGOT) Alanine Aminotransferase 1577 1428 (ALT/SGPT) Alkaline Phosphatase 87 83 Total Protein 8.3 8.3 Albumin 3.5 3.3 White Blood Count 26.9 Red Blood Count 3.94 Hemoglobin 11.7 Hematocrit 35.5 Mean Corpuscular Volume 90.0 Mean Corpuscular Hemoglobin 29.8 Mean Corpuscular Hemoglobin 33.1 Concent Red Cell Distribution Width 15.3 Platelet Count 271 Mean Platelet Volume 9.7 Neutrophils (%) (Auto) 85.2 Lymphocytes (%) (Auto) 3.4 Monocytes (%) (Auto) 9.4 Eosinophils (%) (Auto) 1.8 Basophils (%) (Auto) 0.2 Neutrophils # (Auto) 22.9 Lymphocytes # (Auto) 0.9 Monocytes # (Auto) 2.5 Eosinophils # (Auto) 0.5 Basophils # (Auto) 0.1 CBC Comment AUTO DIFF Differential Comment AUTO DIFF CONFIRMED Sodium Level 134 Potassium Level 3.8 Chloride Level 95 Carbon Dioxide Level 23.9 Anion Gap 15 Blood Urea Nitrogen 69 Creatinine 9.56 Estimat Glomerular Filtration 5 Rate Random Glucose 241 Calcium Level 8.9 Total Creatine Kinase 3152 Creatine Kinase MB 12.1 Creatine Kinase MB % 0.4 Date/Time Procedure Status Source Growth 09/17/16 13:20 Gram Stain - Final Resulted Sputum Endotracheal 09/17/16 13:20 Sputum Culture Resulted Sputum Endotracheal Pending 09/17/16 10:07 Aerobic Blood Culture - Preliminary Resulted Blood Peripheral NO GROWTH IN 1 DAY 09/17/16 10:07 Anaerobic Blood Culture - Preliminary Resulted Blood Peripheral NO GROWTH IN 1 DAY 09/16/16 01:45 Urine Culture - Preliminary Resulted Urine Catheterized Urine NO GROWTH IN 24 HOURS. 09/14/16 08:45 Urine Culture - Final Complete Urine Catheterized Urine NO GROWTH IN 48 HOURS. Imaging Last Impressions Liver Ultrasound 09/17/16 1030 Signed Impressions: Service Date/Time: Saturday, September 17, 2016 11:01 - CONCLUSION: 1. Minimally complex cyst right mid kidney. 2. Liver mildly enlarged. Cesar Mcfadden MD Abdomen X-Ray 09/17/16 0600 Signed Impressions: Service Date/Time: Saturday, September 17, 2016 05:05 - CONCLUSION: Nonspecific abdomen appearance. Michael Ross MD Chest X-Ray 09/15/16 1621 Signed Impressions: Service Date/Time: Thursday, September 15, 2016 16:33 - CONCLUSION: 1. Uncomplicated line placement. No evidence of pneumothorax. Wesley Chaudhari MD Head CT 09/15/16 0000 Signed Impressions: Service Date/Time: Thursday, September 15, 2016 10:15 - CONCLUSION: 1. Sizable area of decreased attenuation in the left MCA distribution most consistent with subacute cortical infarct. This there is stable compared to previous MR dated 09/09/16. Sanket Gonzalez MD Central Venous Line 09/15/16 0000 Signed Impressions: Service Date/Time: Thursday, September 15, 2016 00:00 - CONCLUSION: Uncomplicated line placement as above. Wesley Chaudhari MD Abdomen/Pelvis CT 09/15/16 0000 Signed Impressions: Service Date/Time: Thursday, September 15, 2016 17:00 - CONCLUSION: 1. Gaseous distension of the stomach. 2. I do not see evidence for significant colitis. Lowell Gonzalez MD FACR Catheter Placement X-Ray 09/14/16 0000 Signed Impressions: Service Date/Time: Wednesday, September 14, 2016 00:00 - CONCLUSION: Uncomplicated line placement as above. Wesley Chaudhari MD Carotid Artery Ultrasound 09/13/16 0000 Signed Impressions: Service Date/Time: Tuesday, September 13, 2016 16:46 - CONCLUSION: Significant plaque remains evident in the carotid bifurcations. Poor visualization and difficulty velocity sampling of the proximal internal carotid arteries was again encountered. Significant carotid stenosis cannot be excluded. Nonvisualization of the vertebral arteries. Mack Brizuela MD Brain MRI 09/09/16 0000 Signed Impressions: Service Date/Time: August 16:36 - CONCLUSION: 1. Findings demonstrate an acute infarction in the left sylvian region, nonhemorrhagic. 2. Small air-fluid level right maxillary sinus and mild bilateral ethmoid sinus disease. Suresh Diaz MD Renal Ultrasound 09/08/16 0000 Signed Impressions: Service Date/Time: Thursday, September 08, 2016 16:04 - CONCLUSION: Large 6.3 cm cyst lower pole laterally left kidney. No evidence of hydronephrosis or obstructive uropathy.. Christian Cooper MD Physical Exam HEENT: Normocephalic; atraumatic; no jaundice. NECK: Supple. CHEST: CTA, OETT to vent CARDIAC: RRR ABDOMEN: Soft, nondistended, nontender; no hepatosplenomegaly; bowel sounds are present in all four quadrants. OGT with bilious material EXTREMITIES: Generalized edema. SKIN: BLE cool/dry. 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 Patient with known history of coronary artery disease and a recent CABG who also apparently had recent CVA, currently intubated patient also appears to be septic and hypotensive on vasopressors. Palliative care following. Family has decided to pursue EGD with PEG. Pt has been having high gastric output, 600cc this shift. Will monitor over weekend, if he continues to have high output, consider G/J tube placement by IR in lieu of PEG tube. - High gastric output with gaseous distention of stomach on CT. Abdomen/Pelvis CT (09/15/16)----> 1. Gaseous distension of the stomach. 2. I do not see evidence for significant colitis. Abdomen X-Ray (09/17/16)--- > Nonspecific abdomen appearance. BM 09/15. Per nursing, had 600cc with green bilious material this shift.. - Acute ischemic left MCA, ARF, CHF, CAD, HTN, CKD per CCM PLAN: - NPO - OGT to LIWS - Monitor gastric output - If this remains high, will consider G/J tube in lieu of PEG tube - Further recommendations to follow based on results of above - Pt seen and examined by Dr. Kent and myself and this note is written on his behalf (Elidia Black) Physician Comments Patient seen and examined Agree with above Continue with current supportive care Monitor labs It may be best for the patient to have a GJ tube placed once he is hemodynamically more stable (Rangel Kent MD) Elidia Black Sep 18, 2016 13:03 Rangel Kent MD Sep 18, 2016 14:24
--- NOTE | 2016-09-18 16:40 | HHI.IDPN ---
Subjective Subjective Remarks ID Xcover for Dr Becker chart reviewed Mr. Ferguson is a 66 y/o male with a medical history of CAD status post 6 vessel CABG in 2011, CHF, CAD, hypertension, diabetes mellitus type 2, obesity, and sleep apnea. On 09/07/16, patient underwent cardiac catheterization , he was found to have significant blockage requiring angioplasty and stenting. Post cardiac catheter, patient developed aphasia and right sided hemiparesis. CT of the brain show no acute process. Neurology -Dr. Nguyen consulted. Brain MRI obtained on 09/09/16 showing acute nonhemorrhagic infarction in the left sylvian region. Patient developed respiratory distress and was placed on BiPAP , subsequently intubated and placed on mechanical ventilation. developped ARF, on HD Patient was being treated for aspiration Pneumonia. Overnight intubated for airway protection. Infectious disease following for septic shock, aspiration Pneumonia, confirmed C. difficile colitis. Overnight events reviewed Fevers 101.2 F No rash 600 ml liquid stool on treatment for Cdiff. CT with no colitis. Abnormal LFTs trending down On HD. Antibiotics Meropenem IV Vanco oral. Zyvox IV Lines Line sites with no e/o infection Past Medical History reviewed Allergies: Coded Allergies: No Known Allergies (Verified , 09/07/16) Objective . Vital Signs Date Time Temp Pulse Resp B/P Pulse Ox O2 Delivery O2 Flow Rate FiO2 09/18/16 15:54 95 40 09/18/16 13:39 40 09/18/16 12:00 40 09/18/16 11:35 100 40 09/18/16 10:00 90 09/18/16 08:05 100 40 09/18/16 08:00 78 09/18/16 06:00 76 09/18/16 04:18 96 40 09/18/16 04:00 84 09/18/16 04:00 100.0 82 18 129/62 100 09/18/16 02:00 87 09/18/16 01:32 96 40 09/18/16 00:00 81 09/18/16 00:00 98.9 81 20 103/56 99 09/17/16 22:12 100 40 09/17/16 22:00 82 09/17/16 20:12 100 40 09/17/16 20:00 101.1 88 18 100/77 88 09/17/16 20:00 88 09/17/16 18:00 98 09/17/16 16:28 100 40 09/17/16 09/17/16 09/18/16 15:00 23:00 07:00 Intake Total 887 ml 854 ml 592 ml Output Total 4520 ml 50 ml 400 ml Balance -3633 ml 804 ml 192 ml IV Total 827 ml 854 ml 392 ml Tube Irrigant 60 ml Other 200 ml Output Urine Total 70 ml Stool Total 150 ml 50 ml 400 ml Gastric Drainage Total 300 ml Hemodialysis 4000 ml . Laboratory Tests Test 09/17/16 09/18/16 04:45 03:43 White Blood Count 22.9 TH/MM3 26.9 TH/MM3 Red Blood Count 3.82 MIL/MM3 3.94 MIL/MM3 Hemoglobin 11.2 GM/DL 11.7 GM/DL Hematocrit 34.2 % 35.5 % Mean Corpuscular Volume 89.5 FL 90.0 FL Mean Corpuscular Hemoglobin 29.3 PG 29.8 PG Mean Corpuscular Hemoglobin 32.7 % 33.1 % Concent Red Cell Distribution Width 15.6 % 15.3 % Platelet Count 252 TH/MM3 271 TH/MM3 Mean Platelet Volume 9.4 FL 9.7 FL Neutrophils (%) (Auto) 84.1 % 85.2 % Lymphocytes (%) (Auto) 4.8 % 3.4 % Monocytes (%) (Auto) 8.9 % 9.4 % Eosinophils (%) (Auto) 2.0 % 1.8 % Basophils (%) (Auto) 0.2 % 0.2 % Neutrophils # (Auto) 19.3 TH/MM3 22.9 TH/MM3 Lymphocytes # (Auto) 1.1 TH/MM3 0.9 TH/MM3 Monocytes # (Auto) 2.0 TH/MM3 2.5 TH/MM3 Eosinophils # (Auto) 0.5 TH/MM3 0.5 TH/MM3 Basophils # (Auto) 0.1 TH/MM3 0.1 TH/MM3 CBC Comment DIFF FINAL AUTO DIFF Differential Comment AUTO DIFF CONFIRMED Laboratory Tests Test 09/17/16 09/17/16 09/18/16 04:45 15:11 03:43 Sodium Level 134 MEQ/L 134 MEQ/L Potassium Level 3.7 MEQ/L 3.8 MEQ/L Chloride Level 96 MEQ/L 95 MEQ/L Carbon Dioxide Level 21.4 MEQ/L 23.9 MEQ/L Anion Gap 17 MEQ/L 15 MEQ/L Blood Urea Nitrogen 87 MG/DL 69 MG/DL Creatinine 10.92 MG/DL 9.56 MG/DL Estimat Glomerular Filtration 5 ML/MIN 5 ML/MIN Rate Random Glucose 255 MG/DL 241 MG/DL Calcium Level 8.2 MG/DL 8.9 MG/DL Total Bilirubin 0.6 MG/DL 1.0 MG/DL 0.8 MG/DL Direct Bilirubin 0.3 MG/DL 0.4 MG/DL Indirect Bilirubin 0.3 MG/DL 0.6 MG/DL Aspartate Amino Transf 1148 U/L 1187 U/L 907 U/L (AST/SGOT) Alanine Aminotransferase 1640 U/L 1577 U/L 1428 U/L (ALT/SGPT) Alkaline Phosphatase 63 U/L 87 U/L 83 U/L Total Protein 7.4 GM/DL 8.3 GM/DL 8.3 GM/DL Albumin 2.9 GM/DL 3.5 GM/DL 3.3 GM/DL Lipase 326 U/L Total Creatine Kinase 3152 U/L Creatine Kinase MB 12.1 NG/ML Creatine Kinase MB % 0.4 % Microbiology Date/Time Procedure Status Source Growth 09/15/16 21:30 Aerobic Blood Culture - Preliminary Resulted Blood Other NO GROWTH IN 3 DAYS 09/15/16 21:30 Anaerobic Blood Culture - Preliminary Resulted Blood Other NO GROWTH IN 3 DAYS 09/15/16 21:37 Aerobic Blood Culture - Preliminary Resulted Blood Other NO GROWTH IN 3 DAYS 09/15/16 21:37 Anaerobic Blood Culture - Preliminary Resulted Blood Other NO GROWTH IN 3 DAYS 09/16/16 01:45 Urine Culture - Final Complete Urine Catheterized Urine NO GROWTH IN 48 HOURS. 09/17/16 10:00 Aerobic Blood Culture - Preliminary Resulted Blood Peripheral NO GROWTH IN 1 DAY 09/17/16 10:00 Anaerobic Blood Culture - Preliminary Resulted Blood Peripheral NO GROWTH IN 1 DAY 09/17/16 10:07 Aerobic Blood Culture - Preliminary Resulted Blood Peripheral NO GROWTH IN 1 DAY 09/17/16 10:07 Anaerobic Blood Culture - Preliminary Resulted Blood Peripheral NO GROWTH IN 1 DAY 09/17/16 13:20 Gram Stain - Final Resulted Sputum Endotracheal 09/17/16 13:20 Sputum Culture - Preliminary Resulted Sputum Endotracheal HEAVY GROWTH NORMAL RESPIRATORY ADAL... Imaging Last Impressions Liver Ultrasound 09/17/16 1030 Signed Impressions: Service Date/Time: Saturday, September 17, 2016 11:01 - CONCLUSION: 1. Minimally complex cyst right mid kidney. 2. Liver mildly enlarged. Cesar Mcfadden MD Abdomen X-Ray 09/17/16 0600 Signed Impressions: Service Date/Time: Saturday, September 17, 2016 05:05 - CONCLUSION: Nonspecific abdomen appearance. Michael Ross MD Chest X-Ray 09/15/16 1621 Signed Impressions: Service Date/Time: Thursday, September 15, 2016 16:33 - CONCLUSION: 1. Uncomplicated line placement. No evidence of pneumothorax. Wesley Chaudhari MD Head CT 09/15/16 0000 Signed Impressions: Service Date/Time: Thursday, September 15, 2016 10:15 - CONCLUSION: 1. Sizable area of decreased attenuation in the left MCA distribution most consistent with subacute cortical infarct. This there is stable compared to previous MR dated 09/09/16. Sanket Gonzalez MD Central Venous Line 09/15/16 0000 Signed Impressions: Service Date/Time: Thursday, September 15, 2016 00:00 - CONCLUSION: Uncomplicated line placement as above. Wesley Chaudhari MD Abdomen/Pelvis CT 09/15/16 0000 Signed Impressions: Service Date/Time: Thursday, September 15, 2016 17:00 - CONCLUSION: 1. Gaseous distension of the stomach. 2. I do not see evidence for significant colitis. Lowell Gonzalez MD FACR Catheter Placement X-Ray 09/14/16 0000 Signed Impressions: Service Date/Time: Wednesday, September 14, 2016 00:00 - CONCLUSION: Uncomplicated line placement as above. Wesley Chaudhari MD Carotid Artery Ultrasound 09/13/16 0000 Signed Impressions: Service Date/Time: Tuesday, September 13, 2016 16:46 - CONCLUSION: Significant plaque remains evident in the carotid bifurcations. Poor visualization and difficulty velocity sampling of the proximal internal carotid arteries was again encountered. Significant carotid stenosis cannot be excluded. Nonvisualization of the vertebral arteries. Mack Brizuela MD Brain MRI 09/09/16 0000 Signed Impressions: Service Date/Time: August 16:36 - CONCLUSION: 1. Findings demonstrate an acute infarction in the left sylvian region, nonhemorrhagic. 2. Small air-fluid level right maxillary sinus and mild bilateral ethmoid sinus disease. Suresh Diaz MD Renal Ultrasound 09/08/16 0000 Signed Impressions: Service Date/Time: Thursday, September 08, 2016 16:04 - CONCLUSION: Large 6.3 cm cyst lower pole laterally left kidney. No evidence of hydronephrosis or obstructive uropathy.. Christian Cooper MD Physical Exam GENERAL: Obese male patient, in no apparent distress. SKIN: No rashes, ecchymoses or lesions. Cool and dry. HEAD: Atraumatic. Normocephalic. No temporal or scalp tenderness. EYES: Pupils equal round and reactive. Extraocular motions intact. No scleral icterus. No injection or drainage. ENT: Intubated. oral mucosae moist NECK: Trachea midline. Supple, nontender, no meningeal signs. CARDIOVASCULAR: Heart sounds audible. RESPIRATORY: Clear to auscultation. Breath sounds equal bilaterally. GASTROINTESTINAL: Abdomen soft, non-tender, nondistended. MUSCULOSKELETAL: Extremities without clubbing, cyanosis, or edema. NEUROLOGICAL: Not on any sedation but unresponsive. Moving L side vigorousely, R side very weakly not following commands Psych did not be assessed IV line sites with no evidence of infection. Assessment & Plan Remarks Septic shock with multiorgan dysfunction syndrome Aspiration Pneumonia Cl diff colitis Acute resp failure on vent. Acute metabolic encephalopathy: stroke, sepsis, metabolic. Acute renal failure: meds, sepsis, ATN on HD now. CAD, [place] Acute stroke Recs Continue Vanco oral for Cdiff DC Flagyl IV (increasing LFTs) DC Micafungin IV (2 sets of blood cultures so far with no growth) Continue Meropenem IV (ASP: worsening sepsis on Zosyn IV) cont Zyvox IV (possible MRSA pneumonia will deescalate based on sputum cultures ) for now, will dc if no MRSA in final sputum Cherelle Casey RN, MD Sep 18, 2016 16:40
[2016-09-19] VITALS (19 sets, daily range): BP systolic 97–133; BP diastolic 55–78; PULSE 83–105; RESP 18–25; TEMP 98.5–100.5; O2SAT 94–100
[2016-09-19] MEDS: INSULIN NovoLIN REGULAR SUPPLEMENTAL SCALE SQ SCH ×6 (01:00→21:00)
[2016-09-19] MEDS: CHLORHEXIDINE GLUCONATE 2 % 1 PACK (2 CLOTHS) TOP SCH (04:00)
[2016-09-19 04:30] LABS: AUTOMATED NEUTROPHIL # 21.4 TH/MM3 (1.8-7.7); BASOPHIL # 0.1 TH/MM3 (0-0.2); BASOPHIL % 0.2 % (0.0-2.0); EOSINOPHIL # 0.2 TH/MM3 (0-0.4); EOSINOPHIL % 0.9 % (0.0-4.0); HEMATOCRIT 33.9 % (39.0-51.0); LYMPH % 3.3 % (9.0-44.0); LYMPHOCYTE # 0.8 TH/MM3 (1.0-4.8); MEAN CELL VOLUME 89.8 FL (80.0-100.0); MEAN CORPUSCULAR HEMOGLOBIN 29.3 PG (27.0-34.0); MEAN CORPUSCULAR HGB CONC 32.6 % (32.0-36.0); MONO % 10.1 % (0.0-8.0); NEUT % 85.5 % (16.0-70.0); PLATELET COUNT 269 TH/MM3 (150-450); RED BLOOD COUNT 3.77 MIL/MM3 (4.50-5.90); RED CELL DISTRIBUTION WIDTH 15.3 % (11.6-17.2)
[2016-09-19 04:32] LABS: HEMO FLAGS AUTO DIFF
[2016-09-19 05:17] LABS: BANDS 2 % (0-6); BASOPHILS 1 % (0-2); NEUTROPHIL # MANUAL DIFF 22.3 TH/MM3 (1.8-7.7); PLATELET ESTIMATE SMEAR NORMAL (NORMAL); PLATELET MORPHOLOGY NORMAL (NORMAL); POLYS (SEG NEUTROPHILS) 87 % (16-70); SCAN/DIFF FINAL DIFF MANUAL; WBC DIFF SAMPLE 100
[2016-09-19 05:29] LABS: ALKALINE PHOSPHATASE 88 U/L (45-117); ALT (GPT) 1000 U/L (12-78); ANION GAP 20 MEQ/L (5-15); AST (GOT) 486 U/L (15-37); BICARBONATE 20.6 MEQ/L (21.0-32.0); BLOOD UREA NITROGEN 85 MG/DL (7-18); CHLORIDE 95 MEQ/L (98-107); GLOMERULAR FILTRATION RATE 4 ML/MIN (>89); POTASSIUM 3.9 MEQ/L (3.5-5.1); SODIUM (NA) 136 MEQ/L (136-145); TOTAL BILIRUBIN ADULT 0.9 MG/DL (0.2-1.0)
[2016-09-19] MEDS: MEROPENEM INJ 500 MG in SODIUM CHLORIDE 0.9% INJ 100 ML IV SCH ×3 (05:33→22:00)
[2016-09-19] MEDS: LINEZOLID 600 MG PREMIX 300 ML IV SCH ×2 (05:33→16:07)
--- NOTE | 2016-09-19 07:24 | HHI.CCPN ---
Subjective Remarks/Hospital Course 66-year-old gentleman with a history of coronary artery disease status post CABG underwent emergent cardiac catheterization by Dr. Cummins. Postprocedure his course is complicated by aphasia and right-sided weakness. 09/08 Patient was on BIPAP 14/7 with FIO2 25%. On Precedex and heparin drips. CT brain showed last night showed no acute process. Impela was removed this morning by Dr. Cummins. T:99.9 Renal function improving with Cr:2.5 from 3.0 hyperkalemic with K 6.1 09/09: Overnight remained on BiPAP predominantly for sleep apnea. Intermittently follows commands. Will check MRI of the brain today. Creatinine slightly worsened to 2.8. Consulted nephrology, hyperkalemia resolved 09/10: Remains on BiPAP, some interval worsening of respiratory status. Patient is more tachypneic chest x-ray shows left lower lobe infiltrate .Currently sedated with 0.5 g per KG per hour of Precedex. I will discontinue Precedex. MRI brain shows acute infarct left sylvian region. Creatinine slightly worse at 3. Low-grade fever Tmax 100.2, send blood and sputum culture and start Zosyn 09/11: Patient was intubated yesterday for progressively worsening respiratory failure, hypoxemia and altered mentation. On ventilator support patient's oxygenation has improved. He moves all extremities do not following commands. Chest x-ray shows no definite infiltrates 09/12: Extubated yesterday tolerating well oxygenation varghese and protecting airway. No fevers. Urine output 3.8 L in 24 hours with creatinine worsening from 3.9 to 4.5 today. Remains aphasic not following commands 09/13: Somnolent, received Ativan for agitation overnight. Urine output 4 L in 24 hours. Labs are pending at this time. Opens eyes to verbal stimulation, remains aphasic and did not follow commands 09/14 Patient appears somnolent. On no sedation. Renal function worse today with Cr: 7.31 from 5.40 and UO: 715ml in 24hrs. T:100.9 this morning. Remains aphasic. 09/15 Patient was placed on Amio drip overnight for Afib with RVR. HD initiated yesterday with removal 2L. He is currently receiving another HD treatment. Tmax 100.9. Patient remains encephalopathic and does not follow commands. TF was held due to high residuals. 09/16 Patient was intubated yesterday for airway protection. On Fentanyl drip for sedation on Neosyn. Tmax 104. C-diff PCR positive. CT abd/pelvis showed no acute process, gaseous distention. 09/17 Patient remains intubated and sedated with Fentanyl. On Neosyn 75 mics. T: 101.8 at 4 am. 09/18 Patient remains sedated and intubated. T:101.1 last night. On Neosyn 60 mics. 09/19 No acute events overnight. Off Neosyn and is on Fentanyl infusion for sedation. T:100.5. Tolerated CPAP x 4 hrs yesterday. Patient was able to open up his eyes off sedation. Objective Vital Signs Date Time Temp Pulse Resp B/P Pulse Ox O2 Delivery O2 Flow Rate FiO2 09/19/16 06:00 85 09/19/16 04:06 100 40 09/19/16 04:00 100.5 18 97/55 09/15/16 16:00 Mechanical Ventilator Intake and Output 09/18/16 09/18/16 09/19/16 08:00 16:00 00:00 Intake Total 592 ml 592 ml 490 ml Output Total 400 ml 1030 ml 50 ml Balance 192 ml -438 ml 440 ml Result Diagram: 09/19/16 0400 09/19/16 0400 Other Results Laboratory Tests Test 09/19/16 04:00 White Blood Count 25.0 TH/MM3 Red Blood Count 3.77 MIL/MM3 Hemoglobin 11.0 GM/DL Hematocrit 33.9 % Mean Corpuscular Volume 89.8 FL Mean Corpuscular Hemoglobin 29.3 PG Mean Corpuscular Hemoglobin 32.6 % Concent Red Cell Distribution Width 15.3 % Platelet Count 269 TH/MM3 Mean Platelet Volume 9.5 FL Neutrophils (%) (Auto) 85.5 % Lymphocytes (%) (Auto) 3.3 % Monocytes (%) (Auto) 10.1 % Eosinophils (%) (Auto) 0.9 % Basophils (%) (Auto) 0.2 % Neutrophils # (Auto) 21.4 TH/MM3 Lymphocytes # (Auto) 0.8 TH/MM3 Monocytes # (Auto) 2.5 TH/MM3 Eosinophils # (Auto) 0.2 TH/MM3 Basophils # (Auto) 0.1 TH/MM3 CBC Comment AUTO DIFF Differential Total Cells 100 Counted Neutrophils % (Manual) 87 % Band Neutrophils % 2 % Lymphocytes % 4 % Monocytes % 6 % Basophils % 1 % Neutrophils # (Manual) 22.3 TH/MM3 Differential Comment FINAL DIFF MANUAL Platelet Estimate NORMAL Platelet Morphology Comment NORMAL Red Cell Morphology Comment NORMAL Sodium Level 136 MEQ/L Potassium Level 3.9 MEQ/L Chloride Level 95 MEQ/L Carbon Dioxide Level 20.6 MEQ/L Anion Gap 20 MEQ/L Blood Urea Nitrogen 85 MG/DL Creatinine 12.19 MG/DL Estimat Glomerular Filtration 4 ML/MIN Rate Random Glucose 186 MG/DL Calcium Level 8.9 MG/DL Total Bilirubin 0.9 MG/DL Aspartate Amino Transf 486 U/L (AST/SGOT) Alanine Aminotransferase 1000 U/L (ALT/SGPT) Alkaline Phosphatase 88 U/L Total Protein 8.2 GM/DL Albumin 3.1 GM/DL Imaging Last Impressions Liver Ultrasound 09/17/16 1030 Signed Impressions: Service Date/Time: Saturday, September 17, 2016 11:01 - CONCLUSION: 1. Minimally complex cyst right mid kidney. 2. Liver mildly enlarged. Cesar Mcafdden MD Abdomen X-Ray 09/17/16 0600 Signed Impressions: Service Date/Time: Saturday, September 17, 2016 05:05 - CONCLUSION: Nonspecific abdomen appearance. Michael Ross MD Chest X-Ray 09/15/16 1621 Signed Impressions: Service Date/Time: Thursday, September 15, 2016 16:33 - CONCLUSION: 1. Uncomplicated line placement. No evidence of pneumothorax. Wesley Chaudhari MD Head CT 09/15/16 0000 Signed Impressions: Service Date/Time: Thursday, September 15, 2016 10:15 - CONCLUSION: 1. Sizable area of decreased attenuation in the left MCA distribution most consistent with subacute cortical infarct. This there is stable compared to previous MR dated 09/09/16. Sanket Gonzalez MD Central Venous Line 09/15/16 0000 Signed Impressions: Service Date/Time: Thursday, September 15, 2016 00:00 - CONCLUSION: Uncomplicated line placement as above. Wesley Chaudhari MD Abdomen/Pelvis CT 09/15/16 0000 Signed Impressions: Service Date/Time: Thursday, September 15, 2016 17:00 - CONCLUSION: 1. Gaseous distension of the stomach. 2. I do not see evidence for significant colitis. Lowell Gonzalez MD FACR Catheter Placement X-Ray 09/14/16 0000 Signed Impressions: Service Date/Time: Wednesday, September 14, 2016 00:00 - CONCLUSION: Uncomplicated line placement as above. Wesley Chaudhari MD Carotid Artery Ultrasound 09/13/16 0000 Signed Impressions: Service Date/Time: Tuesday, September 13, 2016 16:46 - CONCLUSION: Significant plaque remains evident in the carotid bifurcations. Poor visualization and difficulty velocity sampling of the proximal internal carotid arteries was again encountered. Significant carotid stenosis cannot be excluded. Nonvisualization of the vertebral arteries. Mack Brizuela MD Brain MRI 09/09/16 0000 Signed Impressions: Service Date/Time: August 16:36 - CONCLUSION: 1. Findings demonstrate an acute infarction in the left sylvian region, nonhemorrhagic. 2. Small air-fluid level right maxillary sinus and mild bilateral ethmoid sinus disease. Suresh Diaz MD Renal Ultrasound 09/08/16 0000 Signed Impressions: Service Date/Time: Thursday, September 08, 2016 16:04 - CONCLUSION: Large 6.3 cm cyst lower pole laterally left kidney. No evidence of hydronephrosis or obstructive uropathy.. Christian Cooper MD Objective Remarks GENERAL: Well-nourished, well-developed patient. On NC SKIN: Warm and dry. HEAD: Normocephalic. EYES: No scleral icterus. No injection or drainage. ENT: Oral cavity moist NECK: Supple, trachea midline. No JVD or lymphadenopathy. CARDIOVASCULAR: Regular rate and rhythm without murmurs, gallops, or rubs. RESPIRATORY: Breath sounds equal bilaterally. No accessory muscle use. GASTROINTESTINAL: Abdomen soft, non-tender, nondistended. MUSCULOSKELETAL: No cyanosis, or edema. BACK: Nontender without obvious deformity. EXTREMITIES: Somnolent but opens eyes to stimulation, aphasic. Blank stare, donot follow commands. Moving all extremities, weaker on R side A/P Problem List: (1) Acute ischemic left MCA stroke ICD Code: I63.512 Status: Acute (2) Acute renal failure ICD Code: N17.9 Status: Acute (3) CHF (congestive heart failure), NYHA class III ICD Code: I50.9 Status: Acute (4) Coronary artery disease involving [place] heart ICD Code: I25.10 Status: Chronic (5) HTN (hypertension) ICD Code: I10 Status: Acute (6) CKD (chronic kidney disease) ICD Code: N18.9 Status: Acute Assessment and Plan ASSESSMENT Acute left MCA stroke Aphasia with right hemiparesis Metabolic encephalopathy NSTEMI Known CAD C-diff colitis Obstructive sleep apnea UTI with enterococcus HCAP Acute hypoxemic respiratory failure-resolved Acute on chronic kidney disease Hyperkalemia-resolved DM HTN LEONARD Hyperlipidemia Plan Neuro: -On Fentanyl infusion. Monitor neuro status. Ativan PRN for agitation -Repeat CT brain 09/15: Sizable area of decreased attenuation in the left MCA distribution most consistent with subacute cortical infarct -MRI brain 09/09/16-acute left sylvian region infarct. CT brain 09/07: No acute disease. -Continue aspirin and Plavix. Neuro was following- Cr. Patrick. -09/13 EEG: within normal. Pulm: -Extubated 09/11 -Continue with vent support keep sat >92% -Bronchodilators, ICU vent bundle, CPAP trials as khris -Family leaning toward transitioning to comfort care awaiting rest of family members to arrive. CV: -Off Neosyn drip monitor HR and BP keep MAP>65mmHg -Continue with ASA, Plavix. Imdur and Lopressor on hold. -Lipitor held for elevated LFT's -s/p cardiac cath 09/07 showed multivessel disease with 2/6 grafts patent, EF 40% . s/p PCI with stents of the saphenous venous graft to the first diagonal artery. -s/p removal Impella 09/08. Cardiology- Dr. Cummins : -Monitor renal function, I/O's, avoid nephrotoxins. -HD initiated 09/14 with removal 2L. HD per renal -Renal-Dr. Naidu. . Monitor CK's GI: - On Protonix 40mg -OGT to LIWS, monitor gastric drainage .GI is following - Monitor LFT's ( trending down), Hepatitis profile negative on 09/14 -US Liver: Minimally complex cyst right mid kidney. Liver mildly enlarged. ID: Leukocytosis C-diff colitis -Continue abx per ID ( PO Vanco, Merrem, Zyvox). Monitor for signs of infections ( Fever, WBC) -Pancultured 3/2 follow up on cxs.. NGTD -CT abd/pelvis: Gaseous distention, no acute process -KUB abdomen 3/- non specific bowel gas pattern Heme: -Monitor CBC Endo: -SSI( Medium) with accuchecks for glycemic control, Levemir 5u Q12 GI prophylaxis - on Protonix 40mg Q12 DVT prophylaxis - SCD, Heparin 5000 units sq very 12 Palliative care is following. Awaiting family's decision re goals of care if they want aggressive care patient will likely need trach and PEG tube placement. Lines: Right Vascth placed 09/14, Right IJ CVP placed 09/15 CCT 30 mins Problem Qualifiers (1) Acute renal failure: Qualified Code: N17.0 - Acute renal failure with tubular necrosis Leroy Urena MD Sep 19, 2016 07:24
[2016-09-19 08:49] LABS: CKMB 5.8 NG/ML (0.5-3.6)
[2016-09-19] MEDS: SENNOSIDES SYRUP 8.8 MG/5 ML CUP PO SCH (09:00)
[2016-09-19] MEDS: DOCUSATE SODIUM 100 MG/10 ML UDC PO SCH ×2 (09:00→21:16)
[2016-09-19] MEDS: ASPIRIN EC 81 MG TABEC PO SCH (09:00)
[2016-09-19] MEDS: SODIUM CHLORIDE 0.9% FLUSH 5 ML FLUSH IVF SCH (09:00)
[2016-09-19] MEDS: SODIUM CHLOR 0.9% 1000 ML INJ 1,000 ML IV SCH (09:07)
[2016-09-19] MEDS: HEPARIN SODIUM - SQ 10,000 UNITS/ML VIAL SQ SCH ×2 (09:35→21:16)
[2016-09-19] MEDS: CLOPIDOGREL 75 MG TAB PO SCH (09:35)
[2016-09-19] MEDS: PANTOPRAZOLE SODIUM 40 MG VIAL IV PUSH SCH ×2 (09:36→21:16)
[2016-09-19] MEDS: VANCOMYCIN 500 MG VIAL (FOR ORAL USE ONLY) PO SCH ×4 (09:36→21:15)
[2016-09-19] MEDS: INSULIN DETEMIR 100 UNITS/ML VIAL SQ SCH ×2 (09:36→21:16)
[2016-09-19] MEDS: CHLORHEXIDINE 0.12% (ORAL KIT) 15 ML CUP MT SCH ×2 (09:37→21:18)
[2016-09-19] MEDS: ARTIFICIAL TEARS OPTH OINT 3.5 APPLIC/3.5 GM TUBO EACH EYE SCH ×2 (09:37→21:18)
[2016-09-19] MEDS: SODIUM CHLORIDE 0.9% FLUSH 5 ML FLUSH IV FLUSH SCH ×2 (09:37→21:17)
[2016-09-19] MEDS: RESP: ALBUTEROL 2.5 MG/IPRATROPIUM 0.5 MG NEB (PRN) INH (09:42)
[2016-09-19] MEDS: ASPIRIN 81 MG CHEW TAB CHEW SCH (10:00)
--- NOTE | 2016-09-19 13:43 | HHI.NPPN ---
Subjective History of Present Illness 66-year-old male with history of coronary artery disease status post CABG, osteoarthritis, diabetes, hyperlipidemia who was admitted there with unstable angina and underwent heart catheterization found to have significant blockages requiring stent and impella device, he has acute renal failure. Additional Remarks Patient remain unresponsive off sedation and Vent Objective Data Data 09/18/16 09/19/16 19:00 07:00 Intake Total 592 ml 775 ml Output Total 1030 ml 365 ml Balance -438 ml 410 ml IV Total 592 ml 775 ml Output Urine Total 30 ml 5 ml Stool Total 400 ml 10 ml Gastric Drainage Total 600 ml 350 ml Vital Signs Date Time Temp Pulse Resp B/P Pulse Ox O2 Delivery O2 Flow Rate FiO2 09/19/16 12:09 98 40 09/19/16 10:00 101 09/19/16 09:47 100 40 09/19/16 09:47 40 09/19/16 08:00 98.5 105 18 133/67 100 09/19/16 08:00 85 09/19/16 08:00 40 09/19/16 06:00 85 09/19/16 04:06 100 40 09/19/16 04:00 100.5 99 18 97/55 100 09/19/16 04:00 40 09/19/16 04:00 85 09/19/16 02:00 83 09/19/16 02:00 85 09/19/16 00:00 40 09/19/16 00:00 92 09/19/16 00:00 100.5 92 19 104/64 100 09/18/16 23:48 100 40 09/18/16 22:00 102 09/18/16 20:13 100 40 09/18/16 20:00 106 09/18/16 20:00 99.5 106 24 102/55 99 09/18/16 20:00 40 09/18/16 18:00 111 09/18/16 16:00 90 09/18/16 16:00 99.9 109 18 102/55 100 09/18/16 16:00 40 09/18/16 15:54 95 40 09/18/16 14:00 92 -: 09/19/16 0400 09/19/16 0400 Physical Exam General Appearance: Well Developed, Well Nourished Pulmonary Resp Exam: Crackles, Rhonchi, Decreased Bases, Diminished Breath Sounds Cardiology CV Exam: Regular, Normal Sinus Rhythm Gastrointestinal/Abdomen GI Exam: Soft, Non-Tender, Bowel Sounds Present, Distended Extremeties Extremities Exam: Moderate Edema, Pitting Edema, Dependent Edema Neurologic Neuro Exam: Sedated Assessment/Plan Problem List: (1) Acute renal failure Plan: on vasopressor BP better on vent intubated He has elevation in the creatinine and he is oliguric. Renal failure on hemodialysis next HD in am continue supportive care (2) Hyperkalemia Plan: Resolved (3) Chronic kidney disease Plan: He has stage III chronic kidney disease due to diabetic (4) CHF (congestive heart failure), NYHA class III Plan: Continue to monitor for improvement (5) Coronary artery disease involving [place] heart Plan: Review his bypass and stents (6) Hypertension, essential, benign Plan: Monitor blood pressure (7) Diabetes mellitus, type II Plan: Monitor blood glucose (8) UTI (lower urinary tract infection) Plan: Meropenem (9) CVA (cerebral vascular accident) Plan: remain unresponsive moves left side more (10) Need for prophylactic vaccination and inoculation against influenza (11) Clostridium difficile infection Plan: on PO Vanco Problem Qualifiers (1) Acute renal failure: Qualified Code: N17.0 - Acute renal failure with tubular necrosis (2) Chronic kidney disease: Qualified Code: N18.4 - Chronic kidney disease, stage 4 (severe) Marisol Naidu MD Sep 19, 2016 13:42
--- NOTE | 2016-09-19 17:47 | HHI.GIFU ---
Subjective Remarks Patient resting in bed in no distress. Tube feeding was started earlier today. Nurse reports that so for he is tolerating this at 20 cc an hour. However he has had problems with high residuals/high gastric output at times. Of note, he does have diabetes. Will consult IR for G/J tube placement. D/W family at bedside. (Elidia Black) Objective Vitals I&O Vital Signs Date Time Temp Pulse Resp B/P Pulse Ox O2 Delivery O2 Flow Rate FiO2 09/19/16 16:00 40 09/19/16 16:00 99.9 95 22 108/76 94 09/19/16 16:00 96 09/19/16 15:54 97 40 09/19/16 14:00 96 09/19/16 12:09 98 40 09/19/16 12:00 40 09/19/16 12:00 100.1 100 25 124/77 100 09/19/16 12:00 100 09/19/16 10:00 101 09/19/16 09:47 100 40 09/19/16 09:47 40 09/19/16 08:00 98.5 105 18 133/67 100 09/19/16 08:00 85 09/19/16 08:00 40 09/19/16 06:00 85 09/19/16 04:06 100 40 09/19/16 04:00 100.5 99 18 97/55 100 09/19/16 04:00 40 09/19/16 04:00 85 09/19/16 02:00 83 09/19/16 02:00 85 09/19/16 00:00 40 09/19/16 00:00 92 09/19/16 00:00 100.5 92 19 104/64 100 09/18/16 23:48 100 40 09/18/16 22:00 102 09/18/16 20:13 100 40 09/18/16 20:00 106 09/18/16 20:00 99.5 106 24 102/55 99 09/18/16 20:00 40 09/18/16 18:00 111 I/O 09/18/16 09/18/16 09/18/16 09/19/16 09/19/16 09/19/16 07:00 15:00 23:00 07:00 15:00 23:00 Intake Total 592 ml 592 ml 490 ml 285 ml 450 ml Output Total 400 ml 1030 ml 50 ml 315 ml 0 ml Balance 192 ml -438 ml 440 ml -30 ml 450 ml IV Total 392 ml 592 ml 490 ml 285 ml 450 ml Other 200 ml Output Urine Total 30 ml 0 ml 5 ml 0 ml Stool Total 400 ml 400 ml 0 ml 10 ml 0 ml Gastric Drainage Total 600 ml 50 ml 300 ml Laboratory Laboratory Tests Test 09/19/16 04:00 White Blood Count 25.0 Red Blood Count 3.77 Hemoglobin 11.0 Hematocrit 33.9 Mean Corpuscular Volume 89.8 Mean Corpuscular Hemoglobin 29.3 Mean Corpuscular Hemoglobin 32.6 Concent Red Cell Distribution Width 15.3 Platelet Count 269 Mean Platelet Volume 9.5 Neutrophils (%) (Auto) 85.5 Lymphocytes (%) (Auto) 3.3 Monocytes (%) (Auto) 10.1 Eosinophils (%) (Auto) 0.9 Basophils (%) (Auto) 0.2 Neutrophils # (Auto) 21.4 Lymphocytes # (Auto) 0.8 Monocytes # (Auto) 2.5 Eosinophils # (Auto) 0.2 Basophils # (Auto) 0.1 CBC Comment AUTO DIFF Differential Total Cells 100 Counted Neutrophils % (Manual) 87 Band Neutrophils % 2 Lymphocytes % 4 Monocytes % 6 Basophils % 1 Neutrophils # (Manual) 22.3 Differential Comment FINAL DIFF MANUAL Platelet Estimate NORMAL Platelet Morphology Comment NORMAL Red Cell Morphology Comment NORMAL Sodium Level 136 Potassium Level 3.9 Chloride Level 95 Carbon Dioxide Level 20.6 Anion Gap 20 Blood Urea Nitrogen 85 Creatinine 12.19 Estimat Glomerular Filtration 4 Rate Random Glucose 186 Calcium Level 8.9 Total Bilirubin 0.9 Aspartate Amino Transf 486 (AST/SGOT) Alanine Aminotransferase 1000 (ALT/SGPT) Alkaline Phosphatase 88 Total Creatine Kinase 1910 Creatine Kinase MB 5.8 Creatine Kinase MB % 0.3 Total Protein 8.2 Albumin 3.1 Date/Time Procedure Status Source Growth 09/17/16 13:20 Gram Stain - Final Resulted Sputum Endotracheal 09/17/16 13:20 Sputum Culture - Preliminary Resulted Gram Negative Shaun 09/17/16 10:07 Aerobic Blood Culture - Preliminary Resulted Blood Peripheral NO GROWTH IN 2 DAYS 09/17/16 10:07 Anaerobic Blood Culture - Preliminary Resulted Blood Peripheral NO GROWTH IN 2 DAYS 09/16/16 01:45 Urine Culture - Final Complete Urine Catheterized Urine NO GROWTH IN 48 HOURS. Imaging Last Impressions Liver Ultrasound 09/17/16 1030 Signed Impressions: Service Date/Time: Saturday, September 17, 2016 11:01 - CONCLUSION: 1. Minimally complex cyst right mid kidney. 2. Liver mildly enlarged. Cesar Mcfadden MD Abdomen X-Ray 09/17/16 0600 Signed Impressions: Service Date/Time: Saturday, September 17, 2016 05:05 - CONCLUSION: Nonspecific abdomen appearance. Michael Ross MD Chest X-Ray 09/15/16 1621 Signed Impressions: Service Date/Time: Thursday, September 15, 2016 16:33 - CONCLUSION: 1. Uncomplicated line placement. No evidence of pneumothorax. Wesley Chaudhari MD Head CT 09/15/16 0000 Signed Impressions: Service Date/Time: Thursday, September 15, 2016 10:15 - CONCLUSION: 1. Sizable area of decreased attenuation in the left MCA distribution most consistent with subacute cortical infarct. This there is stable compared to previous MR dated 09/09/16. Sanket Gonzalez MD Central Venous Line 09/15/16 0000 Signed Impressions: Service Date/Time: Thursday, September 15, 2016 00:00 - CONCLUSION: Uncomplicated line placement as above. Wesley Chaudhari MD Abdomen/Pelvis CT 09/15/16 0000 Signed Impressions: Service Date/Time: Thursday, September 15, 2016 17:00 - CONCLUSION: 1. Gaseous distension of the stomach. 2. I do not see evidence for significant colitis. Lowell Gonzalez MD FACR Catheter Placement X-Ray 09/14/16 0000 Signed Impressions: Service Date/Time: Wednesday, September 14, 2016 00:00 - CONCLUSION: Uncomplicated line placement as above. Wesley Chaudhari MD Carotid Artery Ultrasound 09/13/16 0000 Signed Impressions: Service Date/Time: Tuesday, September 13, 2016 16:46 - CONCLUSION: Significant plaque remains evident in the carotid bifurcations. Poor visualization and difficulty velocity sampling of the proximal internal carotid arteries was again encountered. Significant carotid stenosis cannot be excluded. Nonvisualization of the vertebral arteries. Mack Brizuela MD Brain MRI 09/09/16 0000 Signed Impressions: Service Date/Time: Thursday, September 09, 2016 16:36 - CONCLUSION: 1. Findings demonstrate an acute infarction in the left sylvian region, nonhemorrhagic. 2. Small air-fluid level right maxillary sinus and mild bilateral ethmoid sinus disease. Suresh Diaz MD Renal Ultrasound 09/08/16 0000 Signed Impressions: Service Date/Time: Thursday, September 08, 2016 16:04 - CONCLUSION: Large 6.3 cm cyst lower pole laterally left kidney. No evidence of hydronephrosis or obstructive uropathy.. Christian Cooper MD Physical Exam HEENT: Normocephalic; atraumatic; no jaundice. NECK: Supple. CHEST: CTA, OETT to vent CARDIAC: RRR ABDOMEN: Soft, nondistended, nontender; no hepatosplenomegaly; bowel sounds are present in all four quadrants. OGT with TF EXTREMITIES: Generalized edema. SKIN: BLE cool/dry. CLIENT CARE SPECIALIST: Intubated unresponsive (Elidia Black) Assessment and Plan Plan ASSESSMENT: - Dysphagia/FEN. Patient with known history of coronary artery disease and a recent CABG who also apparently had recent CVA, currently intubated patient also appears to be septic and hypotensive on vasopressors. Palliative care following. Family has decided to pursue EGD with PEG. TF was started, so far tolerating at 20cc/ hr. Nurse reports that he has had issues with high residuals, high gastric output. He previously had gasesous distention of stomach on CT. He does have a hx of DM. Possibly may have some underlying gastroparesis. Will consult IR for G/J tube placement in lieu of peg. - High gastric output with gaseous distention of stomach on CT. Abdomen/Pelvis CT (09/15/16)----> 1. Gaseous distension of the stomach. 2. I do not see evidence for significant colitis. Abdomen X-Ray (09/17/16)--- > Nonspecific abdomen appearance. - Acute ischemic left MCA, ARF, CHF, CAD, HTN, CKD per [facility] PLAN: - TF as tolerated - Consult IR for G/J tube placement in am - Further recommendations to follow based on results of above - Pt seen and examined by Dr. Kent and myself and this note is written on his behalf (Elidia Black) Physician Comments Patient Seen and examined Agree with above Continue with current supportive care Monitor labs Due to high gastric residuals will prefer a GJ tube by IR (Rangel Kent MD) Elidia Black Sep 19, 2016 17:47 Rangel Kent MD Sep 19, 2016 19:33
[2016-09-19] MEDS: fentaNYL DRIP 250 ML IV SCH (21:35)
[2016-09-20] VITALS (20 sets, daily range): BP systolic 98–123; BP diastolic 56–75; PULSE 90–105; RESP 17–23; TEMP 98.8–100; O2SAT 90–96
[2016-09-20] MEDS: INSULIN NovoLIN REGULAR SUPPLEMENTAL SCALE SQ SCH ×6 (00:18→20:45)
[2016-09-20] MEDS: CHLORHEXIDINE GLUCONATE 2 % 1 PACK (2 CLOTHS) TOP SCH (04:00)
[2016-09-20] MEDS: LINEZOLID 600 MG PREMIX 300 ML IV SCH ×2 (04:09→17:00)
[2016-09-20] MEDS: MEROPENEM INJ 500 MG in SODIUM CHLORIDE 0.9% INJ 100 ML IV SCH ×3 (04:09→22:01)
[2016-09-20 04:56] LABS: AUTOMATED NEUTROPHIL # 15.7 TH/MM3 (1.8-7.7); BASOPHIL # 0.1 TH/MM3 (0-0.2); BASOPHIL % 0.3 % (0.0-2.0); EOSINOPHIL # 0.2 TH/MM3 (0-0.4); HEMATOCRIT 31.3 % (39.0-51.0); HEMO FLAGS AUTO DIFF; LYMPH % 4.7 % (9.0-44.0); LYMPHOCYTE # 0.9 TH/MM3 (1.0-4.8); MEAN CELL VOLUME 88.8 FL (80.0-100.0); MEAN CORPUSCULAR HEMOGLOBIN 31.1 PG (27.0-34.0); MONO % 13.2 % (0.0-8.0); NEUT % 80.8 % (16.0-70.0); PLATELET COUNT 281 TH/MM3 (150-450); RED BLOOD COUNT 3.52 MIL/MM3 (4.50-5.90); RED CELL DISTRIBUTION WIDTH 15.6 % (11.6-17.2); WHITE BLOOD COUNT 19.4 TH/MM3 (4.0-11.0)
[2016-09-20 05:25] LABS: ALKALINE PHOSPHATASE 101 U/L (45-117); ALT (GPT) 658 U/L (12-78); ANION GAP 22 MEQ/L (5-15); AST (GOT) 332 U/L (15-37); BICARBONATE 19.3 MEQ/L (21.0-32.0); BLOOD UREA NITROGEN 107 MG/DL (7-18); CHLORIDE 94 MEQ/L (98-107); GLOMERULAR FILTRATION RATE 3 ML/MIN (>89); POTASSIUM 3.7 MEQ/L (3.5-5.1); SODIUM (NA) 135 MEQ/L (136-145); TOTAL BILIRUBIN ADULT 0.8 MG/DL (0.2-1.0)
[2016-09-20 05:55] LABS: CKMB 3.4 NG/ML (0.5-3.6)
[2016-09-20 06:52] LABS: BANDS 1 % (0-6); BASOPHILS 1 % (0-2); NEUTROPHIL # MANUAL DIFF 15.5 TH/MM3 (1.8-7.7); POLYS (SEG NEUTROPHILS) 79 % (16-70); WBC DIFF SAMPLE 100
[2016-09-20 06:53] LABS: PLATELET ESTIMATE SMEAR NORMAL (NORMAL); PLATELET MORPHOLOGY NORMAL (NORMAL); SCAN/DIFF FINAL DIFF MANUAL
--- NOTE | 2016-09-20 07:28 | HHI.CCPN ---
Subjective Remarks/Hospital Course 66-year-old gentleman with a history of coronary artery disease status post CABG underwent emergent cardiac catheterization by Dr. Cummins. Postprocedure his course is complicated by aphasia and right-sided weakness. 09/08 Patient was on BIPAP 14/7 with FIO2 25%. On Precedex and heparin drips. CT brain showed last night showed no acute process. Impela was removed this morning by Dr. Cummins. T:99.9 Renal function improving with Cr:2.5 from 3.0 hyperkalemic with K 6.1 09/09: Overnight remained on BiPAP predominantly for sleep apnea. Intermittently follows commands. Will check MRI of the brain today. Creatinine slightly worsened to 2.8. Consulted nephrology, hyperkalemia resolved 09/10: Remains on BiPAP, some interval worsening of respiratory status. Patient is more tachypneic chest x-ray shows left lower lobe infiltrate .Currently sedated with 0.5 g per KG per hour of Precedex. I will discontinue Precedex. MRI brain shows acute infarct left sylvian region. Creatinine slightly worse at 3. Low-grade fever Tmax 100.2, send blood and sputum culture and start Zosyn 09/11: Patient was intubated yesterday for progressively worsening respiratory failure, hypoxemia and altered mentation. On ventilator support patient's oxygenation has improved. He moves all extremities do not following commands. Chest x-ray shows no definite infiltrates 09/12: Extubated yesterday tolerating well oxygenation varghese and protecting airway. No fevers. Urine output 3.8 L in 24 hours with creatinine worsening from 3.9 to 4.5 today. Remains aphasic not following commands 09/13: Somnolent, received Ativan for agitation overnight. Urine output 4 L in 24 hours. Labs are pending at this time. Opens eyes to verbal stimulation, remains aphasic and did not follow commands 09/14 Patient appears somnolent. On no sedation. Renal function worse today with Cr: 7.31 from 5.40 and UO: 715ml in 24hrs. T:100.9 this morning. Remains aphasic. 09/15 Patient was placed on Amio drip overnight for Afib with RVR. HD initiated yesterday with removal 2L. He is currently receiving another HD treatment. Tmax 100.9. Patient remains encephalopathic and does not follow commands. TF was held due to high residuals. 09/16 Patient was intubated yesterday for airway protection. On Fentanyl drip for sedation on Neosyn. Tmax 104. C-diff PCR positive. CT abd/pelvis showed no acute process, gaseous distention. 09/17 Patient remains intubated and sedated with Fentanyl. On Neosyn 75 mics. T: 101.8 at 4 am. 09/18 Patient remains sedated and intubated. T:101.1 last night. On Neosyn 60 mics. 09/19 No acute events overnight. Off Neosyn and is on Fentanyl infusion for sedation. T:100.5. Tolerated CPAP x 4 hrs yesterday. Patient was able to open up his eyes off sedation. 09/20 Patient remains sedated with Fentanyl and intubated. T:99.8 last night. WBC trending down. Off Neosyn. For J-tube placement by IR today. Objective Vital Signs Date Time Temp Pulse Resp B/P Pulse Ox O2 Delivery O2 Flow Rate FiO2 09/20/16 06:00 91 09/20/16 04:02 92 40 09/20/16 04:00 99.1 18 123/61 Intake and Output 09/19/16 09/19/16 09/20/16 08:00 16:00 00:00 Intake Total 285 ml 450 ml 772 ml Output Total 315 ml 0 ml 0 ml Balance -30 ml 450 ml 772 ml Result Diagram: 09/20/16 0415 09/20/16 0415 Other Results Laboratory Tests Test 09/20/16 04:15 White Blood Count 19.4 TH/MM3 Red Blood Count 3.52 MIL/MM3 Hemoglobin 11.0 GM/DL Hematocrit 31.3 % Mean Corpuscular Volume 88.8 FL Mean Corpuscular Hemoglobin 31.1 PG Mean Corpuscular Hemoglobin 35.0 % Concent Red Cell Distribution Width 15.6 % Platelet Count 281 TH/MM3 Mean Platelet Volume 9.3 FL Neutrophils (%) (Auto) 80.8 % Lymphocytes (%) (Auto) 4.7 % Monocytes (%) (Auto) 13.2 % Eosinophils (%) (Auto) 1.0 % Basophils (%) (Auto) 0.3 % Neutrophils # (Auto) 15.7 TH/MM3 Lymphocytes # (Auto) 0.9 TH/MM3 Monocytes # (Auto) 2.6 TH/MM3 Eosinophils # (Auto) 0.2 TH/MM3 Basophils # (Auto) 0.1 TH/MM3 CBC Comment AUTO DIFF Differential Total Cells 100 Counted Neutrophils % (Manual) 79 % Band Neutrophils % 1 % Lymphocytes % 7 % Monocytes % 12 % Basophils % 1 % Neutrophils # (Manual) 15.5 TH/MM3 Differential Comment FINAL DIFF MANUAL Platelet Estimate NORMAL Platelet Morphology Comment NORMAL Red Cell Morphology Comment NORMAL Sodium Level 135 MEQ/L Potassium Level 3.7 MEQ/L Chloride Level 94 MEQ/L Carbon Dioxide Level 19.3 MEQ/L Anion Gap 22 MEQ/L Blood Urea Nitrogen 107 MG/DL Creatinine 14.48 MG/DL Estimat Glomerular Filtration 3 ML/MIN Rate Random Glucose 164 MG/DL Calcium Level 8.8 MG/DL Total Bilirubin 0.8 MG/DL Aspartate Amino Transf 332 U/L (AST/SGOT) Alanine Aminotransferase 658 U/L (ALT/SGPT) Alkaline Phosphatase 101 U/L Total Creatine Kinase 1683 U/L Creatine Kinase MB 3.4 NG/ML Creatine Kinase MB % 0.2 % Total Protein 8.1 GM/DL Albumin 2.9 GM/DL Imaging Last Impressions Liver Ultrasound 09/17/16 1030 Signed Impressions: Service Date/Time: Saturday, September 17, 2016 11:01 - CONCLUSION: 1. Minimally complex cyst right mid kidney. 2. Liver mildly enlarged. Cesar Mcfadden MD Abdomen X-Ray 09/17/16 0600 Signed Impressions: Service Date/Time: Saturday, September 17, 2016 05:05 - CONCLUSION: Nonspecific abdomen appearance. Michael Ross MD Chest X-Ray 09/15/16 1621 Signed Impressions: Service Date/Time: Thursday, September 15, 2016 16:33 - CONCLUSION: 1. Uncomplicated line placement. No evidence of pneumothorax. Wesley Chaudhari MD Head CT 09/15/16 0000 Signed Impressions: Service Date/Time: Thursday, September 15, 2016 10:15 - CONCLUSION: 1. Sizable area of decreased attenuation in the left MCA distribution most consistent with subacute cortical infarct. This there is stable compared to previous MR dated 09/09/16. Sanket Gonzalez MD Central Venous Line 09/15/16 0000 Signed Impressions: Service Date/Time: Thursday, September 15, 2016 00:00 - CONCLUSION: Uncomplicated line placement as above. Wesley Chaudhari MD Abdomen/Pelvis CT 09/15/16 0000 Signed Impressions: Service Date/Time: Thursday, September 15, 2016 17:00 - CONCLUSION: 1. Gaseous distension of the stomach. 2. I do not see evidence for significant colitis. Lowell Gonzalez MD FACR Catheter Placement X-Ray 09/14/16 0000 Signed Impressions: Service Date/Time: Wednesday, September 14, 2016 00:00 - CONCLUSION: Uncomplicated line placement as above. Wesley Chaudhari MD Carotid Artery Ultrasound 09/13/16 0000 Signed Impressions: Service Date/Time: Tuesday, September 13, 2016 16:46 - CONCLUSION: Significant plaque remains evident in the carotid bifurcations. Poor visualization and difficulty velocity sampling of the proximal internal carotid arteries was again encountered. Significant carotid stenosis cannot be excluded. Nonvisualization of the vertebral arteries. Mack Brizuela MD Brain MRI 09/09/16 0000 Signed Impressions: Service Date/Time: August 16:36 - CONCLUSION: 1. Findings demonstrate an acute infarction in the left sylvian region, nonhemorrhagic. 2. Small air-fluid level right maxillary sinus and mild bilateral ethmoid sinus disease. Suresh Diaz MD Renal Ultrasound 09/08/16 0000 Signed Impressions: Service Date/Time: Thursday, September 08, 2016 16:04 - CONCLUSION: Large 6.3 cm cyst lower pole laterally left kidney. No evidence of hydronephrosis or obstructive uropathy.. Christian Cooper MD Objective Remarks GENERAL: Well-nourished, well-developed patient intubated and sedated SKIN: Warm and dry. HEAD: Normocephalic. EYES: No scleral icterus. No injection or drainage. ENT: Oral cavity moist NECK: Supple, trachea midline. No JVD or lymphadenopathy. Orally intubated CARDIOVASCULAR: Regular rate and rhythm without murmurs, gallops, or rubs. RESPIRATORY: Breath sounds equal bilaterally. No accessory muscle use. GASTROINTESTINAL: Abdomen soft, non-tender, nondistended. MUSCULOSKELETAL: No cyanosis, or edema. BACK: Nontender without obvious deformity. EXTREMITIES: Able to open eyes and moves extremities spontaneously however he does not follow commands or tracks A/P Problem List: (1) Acute ischemic left MCA stroke ICD Code: I63.512 Status: Acute (2) Acute renal failure ICD Code: N17.9 Status: Acute (3) CHF (congestive heart failure), NYHA class III ICD Code: I50.9 Status: Acute (4) Coronary artery disease involving [place] heart ICD Code: I25.10 Status: Chronic (5) HTN (hypertension) ICD Code: I10 Status: Acute (6) CKD (chronic kidney disease) ICD Code: N18.9 Status: Acute Assessment and Plan ASSESSMENT Acute left MCA stroke Aphasia with right hemiparesis Metabolic encephalopathy NSTEMI Known CAD C-diff colitis Obstructive sleep apnea UTI with enterococcus HCAP Acute hypoxemic respiratory failure-resolved Acute on chronic kidney disease Hyperkalemia-resolved DM HTN LEONARD Hyperlipidemia Plan Neuro: -On Fentanyl infusion. Monitor neuro status. Ativan PRN for agitation -Repeat CT brain 09/15: Sizable area of decreased attenuation in the left MCA distribution most consistent with subacute cortical infarct -MRI brain 09/09/16-acute left sylvian region infarct. CT brain 09/07: No acute disease. -Continue aspirin and Plavix. Neuro was following- Cr. Nguyen. -09/13 EEG: within normal. Pulm: -Extubated 09/11 -Continue with vent support keep sat >92% -Bronchodilators, ICU vent bundle, CPAP trials as khris CV: -Off Neosyn drip monitor HR and BP keep MAP>65mmHg -Continue with ASA, Plavix. Imdur and Lopressor on hold. -Lipitor held for elevated LFT's -s/p cardiac cath 09/07 showed multivessel disease with 2/6 grafts patent, EF 40% . s/p PCI with stents of the saphenous venous graft to the first diagonal artery. -s/p removal Impella 09/08. Cardiology- Dr. Cummins : -Monitor renal function, I/O's, avoid nephrotoxins. -HD initiated 09/14 with removal 2L. HD per renal -Renal-Dr. Naidu. . Monitor CK's ( trending down) GI: - On Protonix 40mg -OGT to LIWS, monitor gastric drainage .GI is following - Monitor LFT's ( trending down), Hepatitis profile negative on 09/14 -US Liver: Minimally complex cyst right mid kidney. Liver mildly enlarged. -For J tube placement by IR today. Patient is NPO for procedure. Tolerated trickle feeds yesterday with Nepro @20ml/hr. ID: Leukocytosis...trending down C-diff colitis Sputum cx: GNR 09/17 -Continue abx per ID ( PO Vanco, Merrem, Zyvox). Monitor for signs of infections ( Fever, WBC) -Pancultured 3/ follow up on cxs. -CT abd/pelvis: Gaseous distention, no acute process -KUB abdomen 09/17- non specific bowel gas pattern Heme: -Monitor CBC Endo: -SSI( Medium) with accuchecks for glycemic control, Levemir 5u Q12 GI prophylaxis - on Protonix 40mg Q12 DVT prophylaxis - SCD, Heparin 5000 units sq very 12 Palliative care is following. Lines: Right Vascth placed 09/14, Right IJ CVP placed 09/15 CCT 30 mins Problem Qualifiers (1) Acute renal failure: Qualified Code: N17.0 - Acute renal failure with tubular necrosis Leroy Urena MD Sep 20, 2016 07:28
[2016-09-20] MEDS: SODIUM CHLORIDE 0.9% FLUSH 5 ML FLUSH IVF SCH (09:00)
[2016-09-20] MEDS: ALBUMIN HUMAN 25% 25 GM/100 ML BAGP IV PRN ×2 (09:04→09:06)
[2016-09-20] MEDS: MANNITOL 12.5 GM/50 ML VIAL IV PRN ×2 (09:04→09:06)
[2016-09-20] MEDS: SODIUM CHLOR 0.9% 1000 ML INJ 1,000 ML IV SCH (09:04)
[2016-09-20] MEDS: SODIUM CHLORIDE 0.9% FLUSH 5 ML FLUSH IVF PRN (09:05)
[2016-09-20] MEDS: HEPARIN SODIUM - IV 10,000 UNITS/10 ML VIAL PRN (09:05)
[2016-09-20] MEDS: SODIUM CHLOR 0.9% 1000 ML INJ 1,000 ML IV PRN (09:05)
[2016-09-20] MEDS: GENTAMICIN SULFATE (DIALYSIS USE ONLY) 20 MG/2 ML VIAL IV PRN (09:05)
[2016-09-20] MEDS: DOCUSATE SODIUM 100 MG/10 ML UDC PO SCH ×2 (09:18→20:40)
[2016-09-20] MEDS: ASPIRIN 81 MG CHEW TAB CHEW SCH (09:18)
[2016-09-20] MEDS: CLOPIDOGREL 75 MG TAB PO SCH (09:18)
[2016-09-20] MEDS: SENNOSIDES SYRUP 8.8 MG/5 ML CUP PO SCH (09:18)
[2016-09-20] MEDS: PANTOPRAZOLE SODIUM 40 MG VIAL IV PUSH SCH ×2 (09:19→20:40)
[2016-09-20] MEDS: VANCOMYCIN 500 MG VIAL (FOR ORAL USE ONLY) PO SCH ×4 (09:19→20:40)
[2016-09-20] MEDS: INSULIN DETEMIR 100 UNITS/ML VIAL SQ SCH ×2 (09:19→20:43)
[2016-09-20] MEDS: HEPARIN SODIUM - SQ 10,000 UNITS/ML VIAL SQ SCH ×2 (09:19→20:42)
[2016-09-20] MEDS: SODIUM CHLORIDE 0.9% FLUSH 5 ML FLUSH IV FLUSH SCH ×2 (09:19→20:40)
[2016-09-20] MEDS: ARTIFICIAL TEARS OPTH OINT 3.5 APPLIC/3.5 GM TUBO EACH EYE SCH ×2 (09:20→20:40)
--- NOTE | 2016-09-20 09:56 | HHI.IDPN ---
Subjective Subjective Remarks ID Coverage for Dr Becker Chart reviewed Mr. Ferguson is a 66 y/o male with a medical history of CAD status post 6 vessel CABG in 2011, CHF, CAD, hypertension, diabetes mellitus type 2, obesity, and sleep apnea. On 09/07/16, patient underwent cardiac catheterization , he was found to have significant blockage requiring angioplasty and stenting. Post cardiac catheter, patient developed aphasia and right sided hemiparesis. CT of the brain show no acute process. Neurology -Dr. Nguyen consulted. Brain MRI obtained on 09/09/16 showing acute nonhemorrhagic infarction in the left sylvian region. Patient developed respiratory distress and was placed on BiPAP , subsequently intubated and placed on mechanical ventilation. developed ARF, on HD Patient was being treated for aspiration Pneumonia. Intubated September 15 Started on HD Sep 14 Infectious disease following for septic shock, aspiration Pneumonia, confirmed C. difficile colitis. Notes reviewed Has low grade temps Off pressors Having HD Has liquid stool CT with no colitis. Abnormal LFTs trending down WBC decreasing BC negative Has RIJ TLC and vascath Sputum 09/17 with Pseudomonas Antibiotics Meropenem IV Vanco oral. Zyvox IV Lines RIJ TLC and vascath Past Medical History reviewed Allergies: Coded Allergies: No Known Allergies (Verified , 09/07/16) Objective . Vital Signs Date Time Temp Pulse Resp B/P Pulse Ox O2 Delivery O2 Flow Rate FiO2 09/20/16 07:39 94 40 09/20/16 06:00 91 09/20/16 04:02 92 40 09/20/16 04:00 40 09/20/16 04:00 99.1 91 18 123/61 92 09/20/16 04:00 95 09/20/16 02:00 95 09/20/16 01:22 93 40 09/20/16 00:00 99.1 96 18 101/75 90 09/20/16 00:00 96 09/20/16 00:00 40 09/19/16 22:19 94 40 09/19/16 22:00 96 09/19/16 20:00 99.8 101 19 105/78 98 09/19/16 20:00 40 09/19/16 20:00 101 09/19/16 19:41 95 40 09/19/16 19:34 94 40 09/19/16 18:00 94 09/19/16 16:00 40 09/19/16 16:00 99.9 95 22 108/76 94 09/19/16 16:00 96 09/19/16 15:54 97 40 09/19/16 14:00 96 09/19/16 12:09 98 40 09/19/16 12:00 40 09/19/16 12:00 100.1 100 25 124/77 100 09/19/16 12:00 100 09/19/16 10:00 101 09/19/16 09/19/16 09/20/16 15:00 23:00 07:00 Intake Total 450 ml 772 ml 545 ml Output Total 0 ml 0 ml 10 ml Balance 450 ml 772 ml 535 ml IV Total 450 ml 490 ml 385 ml Tube Feeding 182 ml 60 ml Tube Irrigant 100 ml 100 ml Output Urine Total 0 ml 0 ml 10 ml Stool Total 0 ml 0 ml 0 ml . Laboratory Tests Test 09/19/16 09/20/16 04:00 04:15 White Blood Count 25.0 TH/MM3 19.4 TH/MM3 Red Blood Count 3.77 MIL/MM3 3.52 MIL/MM3 Hemoglobin 11.0 GM/DL 11.0 GM/DL Hematocrit 33.9 % 31.3 % Mean Corpuscular Volume 89.8 FL 88.8 FL Mean Corpuscular Hemoglobin 29.3 PG 31.1 PG Mean Corpuscular Hemoglobin 32.6 % 35.0 % Concent Red Cell Distribution Width 15.3 % 15.6 % Platelet Count 269 TH/MM3 281 TH/MM3 Mean Platelet Volume 9.5 FL 9.3 FL Neutrophils (%) (Auto) 85.5 % 80.8 % Lymphocytes (%) (Auto) 3.3 % 4.7 % Monocytes (%) (Auto) 10.1 % 13.2 % Eosinophils (%) (Auto) 0.9 % 1.0 % Basophils (%) (Auto) 0.2 % 0.3 % Neutrophils # (Auto) 21.4 TH/MM3 15.7 TH/MM3 Lymphocytes # (Auto) 0.8 TH/MM3 0.9 TH/MM3 Monocytes # (Auto) 2.5 TH/MM3 2.6 TH/MM3 Eosinophils # (Auto) 0.2 TH/MM3 0.2 TH/MM3 Basophils # (Auto) 0.1 TH/MM3 0.1 TH/MM3 CBC Comment AUTO DIFF AUTO DIFF Differential Total Cells 100 100 Counted Neutrophils % (Manual) 87 % 79 % Band Neutrophils % 2 % 1 % Lymphocytes % 4 % 7 % Monocytes % 6 % 12 % Basophils % 1 % 1 % Neutrophils # (Manual) 22.3 TH/MM3 15.5 TH/MM3 Differential Comment FINAL DIFF FINAL DIFF MANUAL MANUAL Platelet Estimate NORMAL NORMAL Platelet Morphology Comment NORMAL NORMAL Red Cell Morphology Comment NORMAL NORMAL Laboratory Tests Test 09/19/16 09/20/16 04:00 04:15 Sodium Level 136 MEQ/L 135 MEQ/L Potassium Level 3.9 MEQ/L 3.7 MEQ/L Chloride Level 95 MEQ/L 94 MEQ/L Carbon Dioxide Level 20.6 MEQ/L 19.3 MEQ/L Anion Gap 20 MEQ/L 22 MEQ/L Blood Urea Nitrogen 85 MG/DL 107 MG/DL Creatinine 12.19 MG/DL 14.48 MG/DL Estimat Glomerular Filtration 4 ML/MIN 3 ML/MIN Rate Random Glucose 186 MG/DL 164 MG/DL Calcium Level 8.9 MG/DL 8.8 MG/DL Total Bilirubin 0.9 MG/DL 0.8 MG/DL Aspartate Amino Transf 486 U/L 332 U/L (AST/SGOT) Alanine Aminotransferase 1000 U/L 658 U/L (ALT/SGPT) Alkaline Phosphatase 88 U/L 101 U/L Total Creatine Kinase 1910 U/L 1683 U/L Creatine Kinase MB 5.8 NG/ML 3.4 NG/ML Creatine Kinase MB % 0.3 % 0.2 % Total Protein 8.2 GM/DL 8.1 GM/DL Albumin 3.1 GM/DL 2.9 GM/DL Microbiology Date/Time Procedure Status Source Growth 09/17/16 10:00 Aerobic Blood Culture - Preliminary Resulted Blood Peripheral NO GROWTH IN 2 DAYS 09/17/16 10:00 Anaerobic Blood Culture - Preliminary Resulted Blood Peripheral NO GROWTH IN 2 DAYS 09/17/16 10:07 Aerobic Blood Culture - Preliminary Resulted Blood Peripheral NO GROWTH IN 2 DAYS 09/17/16 10:07 Anaerobic Blood Culture - Preliminary Resulted Blood Peripheral NO GROWTH IN 2 DAYS 09/17/16 13:20 Gram Stain - Final Resulted Sputum Endotracheal 09/17/16 13:20 Sputum Culture - Preliminary Resulted Pseudomonas Species Imaging Liver Ultrasound 09/17/16 1030 Signed Impressions: Service Date/Time: Saturday, September 17, 2016 11:01 - CONCLUSION: 1. Minimally complex cyst right mid kidney. 2. Liver mildly enlarged. Cesar Mcfadden MD Abdomen X-Ray 09/17/16 0600 Signed Impressions: Service Date/Time: Saturday, September 17, 2016 05:05 - CONCLUSION: Nonspecific abdomen appearance. Michael Ross MD Chest X-Ray 09/15/16 1621 Signed Impressions: Service Date/Time: Thursday, September 15, 2016 16:33 - CONCLUSION: 1. Uncomplicated line placement. No evidence of pneumothorax. Wesley Chaudhari MD Head CT 09/15/16 0000 Signed Impressions: Service Date/Time: Thursday, September 15, 2016 10:15 - CONCLUSION: 1. Sizable area of decreased attenuation in the left MCA distribution most consistent with subacute cortical infarct. This there is stable compared to previous MR dated 09/09/16. Sanket Gonzalez MD Central Venous Line 09/15/16 0000 Signed Impressions: Service Date/Time: Thursday, September 15, 2016 00:00 - CONCLUSION: Uncomplicated line placement as above. Wesley Chaudhari MD Abdomen/Pelvis CT 09/15/16 0000 Signed Impressions: Service Date/Time: Thursday, September 15, 2016 17:00 - CONCLUSION: 1. Gaseous distension of the stomach. 2. I do not see evidence for significant colitis. Lowell Gonzalez MD FACR Catheter Placement X-Ray 09/14/16 0000 Signed Impressions: Service Date/Time: Wednesday, September 14, 2016 00:00 - CONCLUSION: Uncomplicated line placement as above. Wesley Chaudhari MD Carotid Artery Ultrasound 09/13/16 0000 Signed Impressions: Service Date/Time: Tuesday, September 13, 2016 16:46 - CONCLUSION: Significant plaque remains evident in the carotid bifurcations. Poor visualization and difficulty velocity sampling of the proximal internal carotid arteries was again encountered. Significant carotid stenosis cannot be excluded. Nonvisualization of the vertebral arteries. Mack Brizuela MD Brain MRI 09/09/16 0000 Signed Impressions: Service Date/Time: August 16:36 - CONCLUSION: 1. Findings demonstrate an acute infarction in the left sylvian region, nonhemorrhagic. 2. Small air-fluid level right maxillary sinus and mild bilateral ethmoid sinus disease. Suresh Diaz MD Renal Ultrasound 09/08/16 0000 Signed Impressions: Service Date/Time: Thursday, September 08, 2016 16:04 - CONCLUSION: Large 6.3 cm cyst lower pole laterally left kidney. No evidence of hydronephrosis or obstructive uropathy.. Christian Cooper MD Physical Exam GENERAL: Obese male patient, sedated, on the vent. SKIN: No rashes, ecchymoses or lesions. Cool and dry. HEAD: Atraumatic. Normocephalic. No temporal or scalp tenderness. EYES: Pupils equal round and reactive. No scleral icterus. No injection or drainage. ENT: Intubated. Oral mucosae moist NECK: Trachea midline. Supple, nontender, no meningeal signs. Line in neck looks ok CARDIOVASCULAR: Heart sounds audible. RESPIRATORY: Clear to auscultation. Breath sounds equal bilaterally. GASTROINTESTINAL: Abdomen soft, non-tender, nondistended. MUSCULOSKELETAL: Extremities without clubbing, cyanosis, or edema. NEUROLOGICAL: Sedated Psych can not be assessed IV line sites with no evidence of infection. : Guillen in place Assessment & Plan Remarks IMPRESSION Septic shock with multiorgan dysfunction syndrome Aspiration Pneumonia - C/S prelim Pseudomonas Clostridium diff colitis Acute resp failure on vent. Acute metabolic encephalopathy: stroke, sepsis, metabolic. Acute renal failure: meds, sepsis, ATN on HD now. CAD, [place] Acute stroke Recs Continue Vanco oral for Cdiff Continue Meropenem IV (ASP: worsening sepsis on Zosyn IV) Continue Zyvox IV (possible MRSA pneumonia will deescalate based on sputum cultures) for now, will dc if no MRSA in final sputum CXR tomorrow Follow C/S Monitor progress Abx will be adjusted once C/S finalized Sparkle Lopez MD Sep 20, 2016 09:56
[2016-09-20] MEDS: CHLORHEXIDINE 0.12% (ORAL KIT) 15 ML CUP MT SCH ×2 (11:29→20:40)
--- NOTE | 2016-09-20 12:05 | HHI.HCPN ---
Reason for visit a. To assist with evaluation and management of symptoms including: shortness of breath and debility. b. To assist medical decision maker(s) with: better understanding of current medical conditions; weighing benefits/burdens of medical treatment options; making medical treatment decisions. . Subjective/Interval History Patient seen in ICU. he remains in critical condition -intubated, sedated on mechanical ventilation. Worsening renal function despite MEATMAN, BUN/creatinine today 107/14.48. Nephrology -Dr. Naidu following. Ongoing hemodialysis today with goal of 3 L out. Also Rory-Synephrine since 09/19/16, stable SBP in the 120s while undergoing hemodialysis. A febrile since yesterday. Sputum culture 09/17/16 growing Pseudomonas. Positive C. difficile PCR. WBC trending down, today 19.4 from 25.0 yesterday ID -Dr. Mini Rain following. As per reports, patient was able to open his eyes and move his left arm over the weekend. No purposeful movement noted, not following any commands. Patient today remains sedated on fentanyl drip, not opening eyes or following any commands. Neurology -Dr. Nguyen following. Patient remains intubated on mechanical ventilation, was able to tolerate CPAP for 4 hours during the weekend. 2 feeding on-call secondary to high residuals. Pending today to placement by IR today, however, on hold secondary to anticoagulants. Laboratory today, WBC trending down 18.4, Hgb 11.0, pl 281. Na 135, K 3.7. Patient presents with multisystem organ failure. Liver enzymes remain elevated but trending down, AST 332, ALT 658, alkaline phosphatase 101. Liver ultrasound 09/17/16 showing mildly enlarged liver. No family at bedside. Telephone call to patient's son Sedrick and left message on voicemail. Palliative care will continue to follow-up for further clarifications of goals of care in the setting of multisystem organ failure with very poor prognosis. Spoke with patient's son Sedrick. Medical update provided. Reviewed clinical course and treatment over the weekend. Family to visit patient this afternoon, agreed to meet with palliative care. Palliative care to follow-up. . Family/friend interactions See interval note. . Advance Directives Advance Directive Specifics Health Care Surrogate(s): Max Dubose not sure if patient has completed advance directives. As per [place] statute, healthcare decision-making falls to patient's 3 children. . Documented care wishes: Unclear at this time if advance directives have been completed. . Significant change in goals: Full code. Continue aggressive care. . Objective Vital Signs Date Time Temp Pulse Resp B/P Pulse Ox O2 Delivery O2 Flow Rate FiO2 09/20/16 11:08 96 40 09/20/16 10:00 101 09/20/16 08:00 90 09/20/16 08:00 40 09/20/16 08:00 98.9 90 19 105/70 93 09/20/16 07:39 94 40 09/20/16 06:00 91 09/20/16 04:02 92 40 09/20/16 04:00 40 09/20/16 04:00 99.1 91 18 123/61 92 09/20/16 04:00 95 09/20/16 02:00 95 09/20/16 01:22 93 40 09/20/16 00:00 99.1 96 18 101/75 90 09/20/16 00:00 96 09/20/16 00:00 40 09/19/16 22:19 94 40 09/19/16 22:00 96 09/19/16 20:00 99.8 101 19 105/78 98 09/19/16 20:00 40 09/19/16 20:00 101 09/19/16 19:41 95 40 09/19/16 19:34 94 40 09/19/16 18:00 94 09/19/16 16:00 40 09/19/16 16:00 99.9 95 22 108/76 94 09/19/16 16:00 96 09/19/16 15:54 97 40 09/19/16 14:00 96 09/19/16 12:09 98 40 09/19/16 12:00 40 09/19/16 12:00 100.1 100 25 124/77 100 09/19/16 12:00 100 Intake & Output 09/20/16 09/20/16 07:00 19:00 Intake Total 1317 ml Output Total 10 ml 3500 ml Balance 1307 ml -3500 ml IV Total 875 ml Tube Feeding 242 ml Tube Irrigant 200 ml Output Urine Total 10 ml Stool Total 0 ml Hemodialysis 3500 ml Physical Exam CONSTITUTIONAL/GENERAL: This is an adequately nourished patient in no acute distress. Sedated, intubated on mechanical ventilation. TUBES/LINES/DRAINS: PIV's, SCDs, Guillen catheter, right IJ dialysis catheter. ETT , NG tube to right nare. SKIN: No jaundice, rashes, or lesions. No wounds seen anteriorly. Not diaphoretic. Dry skin. HEAD: Atraumatic. Normocephalic. ENT: Unable to evaluate hearing secondary to clinical condition.. Nose without bleeding or purulent drainage.EET in place. NECK: Trachea midline. Supple. CARDIOVASCULAR: irregular rate and rhythm. RESPIRATORY/CHEST: Symmetric, unlabored. coarse breath sounds anteriorly. Intubated on mechanical ventilation. GASTROINTESTINAL: Abdomen soft, large, round. Bowel sounds hypoactive. GENITOURINARY: Without palpable bladder distension. Guillen catheter in place. MUSCULOSKELETAL: Extremities without clubbing, cyanosis. NEUROLOGICAL: Unresponsive to tactile or verbal stimuli. Not following any commands. PSYCHIATRIC: Unable to assess secondary to clinical condition. Appears calm. . Diagnostic Tests Laboratory Laboratory Tests Test 09/17/16 09/18/16 09/19/16 09/20/16 15:11 03:43 04:00 04:15 Prothrombin Time 13.6 SEC (9.8-11.6) Prothromb Time International 1.2 RATIO Ratio Total Bilirubin 1.0 MG/DL 0.8 MG/DL 0.9 MG/DL 0.8 MG/DL (0.2-1.0) (0.2-1.0) (0.2-1.0) (0.2-1.0) Direct Bilirubin 0.4 MG/DL (0.0-0.2) Indirect Bilirubin 0.6 MG/DL (0.0-0.8) Aspartate Amino Transf 1187 U/L 907 U/L (15-37) 486 U/L (15-37) 332 U/L (15-37) (AST/SGOT) (15-37) Alanine Aminotransferase 1577 U/L 1428 U/L 1000 U/L 658 U/L (12-78) (ALT/SGPT) (-78) (12-78) (12-78) Alkaline Phosphatase 87 U/L (45-117) 83 U/L (45-117) 88 U/L (45-117) 101 U/L (45-117) Total Protein 8.3 GM/DL 8.3 GM/DL 8.2 GM/DL 8.1 GM/DL (6.4-8.2) (6.4-8.2) (6.4-8.2) (6.4-8.2) Albumin 3.5 GM/DL 3.3 GM/DL 3.1 GM/DL 2.9 GM/DL (3.4-5.0) (3.4-5.0) (3.4-5.0) (3.4-5.0) White Blood Count 26.9 TH/MM3 25.0 TH/MM3 19.4 TH/MM3 (4.0-11.0) (4.0-11.0) (4.0-11.0) Red Blood Count 3.94 MIL/MM3 3.77 MIL/MM3 3.52 MIL/MM3 (4.50-5.90) (4.50-5.90) (4.50-5.90) Hemoglobin 11.7 GM/DL 11.0 GM/DL 11.0 GM/DL (13.0-17.0) (13.0-17.0) (13.0-17.0) Hematocrit 35.5 % 33.9 % 31.3 % (39.0-51.0) (39.0-51.0) (39.0-51.0) Mean Corpuscular Volume 90.0 FL 89.8 FL 88.8 FL (80.0-100.0) (80.0-100.0) (80.0-100.0) Mean Corpuscular Hemoglobin 29.8 PG 29.3 PG 31.1 PG (27.0-34.0) (27.0-34.0) (27.0-34.0) Mean Corpuscular Hemoglobin 33.1 % 32.6 % 35.0 % Concent (32.0-36.0) (32.0-36.0) (32.0-36.0) Red Cell Distribution Width 15.3 % 15.3 % 15.6 % (11.6-17.2) (11.6-17.2) (11.6-17.2) Platelet Count 271 TH/MM3 269 TH/MM3 281 TH/MM3 (150-450) (150-450) (150-450) Mean Platelet Volume 9.7 FL 9.5 FL 9.3 FL (7.0-11.0) (7.0-11.0) (7.0-11.0) Neutrophils (%) (Auto) 85.2 % 85.5 % 80.8 % (16.0-70.0) (16.0-70.0) (16.0-70.0) Lymphocytes (%) (Auto) 3.4 % 3.3 % 4.7 % (9.0-44.0) (9.0-44.0) (9.0-44.0) Monocytes (%) (Auto) 9.4 % (0.0-8.0) 10.1 % 13.2 % (0.0-8.0) (0.0-8.0) Eosinophils (%) (Auto) 1.8 % (0.0-4.0) 0.9 % (0.0-4.0) 1.0 % (0.0-4.0) Basophils (%) (Auto) 0.2 % (0.0-2.0) 0.2 % (0.0-2.0) 0.3 % (0.0-2.0) Neutrophils # (Auto) 22.9 TH/MM3 21.4 TH/MM3 15.7 TH/MM3 (1.8-7.7) (1.8-7.7) (1.8-7.7) Lymphocytes # (Auto) 0.9 TH/MM3 0.8 TH/MM3 0.9 TH/MM3 (1.0-4.8) (1.0-4.8) (1.0-4.8) Monocytes # (Auto) 2.5 TH/MM3 2.5 TH/MM3 2.6 TH/MM3 (0-0.9) (0-0.9) (0-0.9) Eosinophils # (Auto) 0.5 TH/MM3 0.2 TH/MM3 0.2 TH/MM3 (0-0.4) (0-0.4) (0-0.4) Basophils # (Auto) 0.1 TH/MM3 0.1 TH/MM3 0.1 TH/MM3 (0-0.2) (0-0.2) (0-0.2) CBC Comment AUTO DIFF AUTO DIFF AUTO DIFF Differential Comment AUTO DIFF FINAL DIFF FINAL DIFF CONFIRMED MANUAL MANUAL Sodium Level 134 MEQ/L 136 MEQ/L 135 MEQ/L (136-145) (136-145) (136-145) Potassium Level 3.8 MEQ/L 3.9 MEQ/L 3.7 MEQ/L (3.5-5.1) (3.5-5.1) (3.5-5.1) Chloride Level 95 MEQ/L 95 MEQ/L 94 MEQ/L (98-107) (98-107) (98-107) Carbon Dioxide Level 23.9 MEQ/L 20.6 MEQ/L 19.3 MEQ/L (21.0-32.0) (21.0-32.0) (21.0-32.0) Anion Gap 15 MEQ/L (5-15) 20 MEQ/L (5-15) 22 MEQ/L (5-15) Blood Urea Nitrogen 69 MG/DL (7-18) 85 MG/DL (7-18) 107 MG/DL (7-18) Creatinine 9.56 MG/DL 12.19 MG/DL 14.48 MG/DL (0.60-1.30) (0.60-1.30) (0.60-1.30) Estimat Glomerular Filtration 5 ML/MIN (>89) 4 ML/MIN (>89) 3 ML/MIN (>89) Rate Random Glucose 241 MG/DL 186 MG/DL 164 MG/DL (74-106) (74-106) (74-106) Calcium Level 8.9 MG/DL 8.9 MG/DL 8.8 MG/DL (8.5-10.1) (8.5-10.1) (8.5-10.1) Total Creatine Kinase 3152 U/L 1910 U/L 1683 U/L (39-308) (39-308) (39-308) Creatine Kinase MB 12.1 NG/ML 5.8 NG/ML 3.4 NG/ML (0.5-3.6) (0.5-3.6) (0.5-3.6) Creatine Kinase MB % 0.4 % (0.0-4.0) 0.3 % (0.0-4.0) 0.2 % (0.0-4.0) Differential Total Cells 100 100 Counted Neutrophils % (Manual) 87 % (16-70) 79 % (16-70) Band Neutrophils % 2 % (0-6) 1 % (0-6) Lymphocytes % 4 % (9-44) 7 % (9-44) Monocytes % 6 % (0-8) 12 % (0-8) Basophils % 1 % (0-2) 1 % (0-2) Neutrophils # (Manual) 22.3 TH/MM3 15.5 TH/MM3 (1.8-7.7) (1.8-7.7) Platelet Estimate NORMAL NORMAL (NORMAL) (NORMAL) Platelet Morphology Comment NORMAL NORMAL (NORMAL) (NORMAL) Red Cell Morphology Comment NORMAL NORMAL (NORMAL) (NORMAL) Result Diagram: 09/20/16 0415 09/20/16 0415 Microbiology Microbiology Date/Time Procedure Status Source Growth 09/17/16 13:20 Gram Stain - Final Resulted Sputum Endotracheal 09/17/16 13:20 Sputum Culture - Preliminary Resulted Pseudomonas Species Procedures * 09/15/06 -intubation * 09/14/16 -dialysis catheter placement . * 09/11/16 -extubation. * 09/10/16 -intubation. * 09/07/16 -cardiac catheter with angioplasty and stent placement. . Assessment and Plan Disease Oriented Problem List: (1) Acute tubular necrosis (2) Acute ischemic left MCA stroke (3) CAD (coronary artery disease) of bypass graft (4) CHF (congestive heart failure), NYHA class II (5) Liver function failure Symptom Scale: (1) Shortness of breath 0-10 Scale: Unable to quantify Comment: Reintubated 09/15/06. On mechanical ventilation. (2) Debility 0-10 Scale: Unable to quantify Comment: Secondary to CVA, acute complications, hospitalization. Pertinent Non-Medical Issues Psychosocial: . Has 2 children. Living independently prior to this hospitalization. Spiritual: [employer]. Legal: Unknown if advance directives have been completed. Ethical issues impacting care: Unknown if advance directives have been completed. . Important Contacts Max Birmingham [phone]. Son Vaibhav Salgado. Daughter Yani. . Prognosis Mr. KoehlerMelissa is a 66 y/o male with an adhesive significant cardiac history to include stenting in 2010, CAD status post 6 vessel CABG in 2011, and angioplasty and stenting in September 06. He was found to have significant blockage requiring angioplasty and stenting. 2 of 6 grafts are currently patent. Post cardiac catheter, patient developed aphasia and right sided hemiparesis. MRI of the brain showing acute nonhemorrhagic infarct. Patient was intubated and subsequently extubated secondary to respiratory failure and altered mental status. Vertical condition remains the same, he is obtunded and not following any commands. Patient with history of CKD now with acute tubular necrosis requiring renal replacement therapy. His prognosis is poor for a meaningful neurological recovery even if he is to survive this hospitalization given his age, severity of cardiac disease, complications to include stroke, and multiple comorbidities. He is at a very high risk for further decline, complications and . . Code Status: Full Code Plan * CODE STATUS: Full code. Risks, benefits and limitations of CPR, intubation and mechanical ventilation readdressed with patient's son on 09/16/16 given patient's worsening clinical condition. Encouraged to discuss further with family. * MEDICAL DECISION-MAKING: Patient incapacitated to make healthcare decisions secondary to clinical condition, unclear if he will regain. Son Sedrick not sure if patient has completed advance directives. As per [place] statute, healthcare decision-making falls to patient's 3 children. * GOALS OF CARE: 09/20/16 -Continue aggressive care. Pending f/u with family for further clarification of goals of care. Palliative care to follow-up. * SYMPTOMS: == Shortness of breath, patient recently intubated and extubated. Worsening clinical condition. Reintubated 09/15/16, remains on mechanical ventilation. == Debility, secondary to CVA, acute events and hospitalization. = = Anxiety, patient appears calm. * Case discussed with Dr. Urena, Dr. Layne and bedside RN. * Palliative care contact information has been provided to patient's family. * Palliative care will continue to follow-up to assist with symptom management and to further evaluate goals of care as the clinical course evolves. . Time Spent Total Floor Time (mins): 32 (Total time to include review and summarization of medical records, physical exam, telephone conversation with son and case discussion with Dr. Urena and bedside RN.) >50% Counseling/Coord of Care: Yes Attestation To help prompt me to consider important information that might be impacting today's encounter and assessment, information from prior notes written by myself or my colleagues may have been "brought forward" into today's note. My signature on this note, however, is an attestation that I personally performed the exam, history, and/or decision-making noted today, and, unless otherwise indicated, the interactions with patient, family, and staff as well as the review of records all occurred today. I also attest that the listed assessment and stated plan reflect my best clinical judgment today based on the combination of historical information, prior notes, and today's exam/ interactions. When time spent is documented, it refers only to time spent today by the signer, or if indicated, combined time spent today by collaborating physician/nurse practitioner. Simran Sorto Sep 20, 2016 12:05
--- NOTE | 2016-09-20 12:31 | HHI.GIFU ---
Subjective Remarks patient remains sedated and intubated. IR can't place G-J tube unless Plavix on hold for 5 days, case was discussed with Dr. Urena who would discuss with Dr. Cummins, as patient had a recent stent and is high risk for thrombosis. Patient had high residual with TF at rate 20 cc an hour. Objective Vitals I&O Vital Signs Date Time Temp Pulse Resp B/P Pulse Ox O2 Delivery O2 Flow Rate FiO2 09/20/16 11:08 96 40 09/20/16 10:00 101 09/20/16 08:00 90 09/20/16 08:00 40 09/20/16 08:00 98.9 90 19 105/70 93 09/20/16 07:39 94 40 09/20/16 06:00 91 09/20/16 04:02 92 40 09/20/16 04:00 40 09/20/16 04:00 99.1 91 18 123/61 92 09/20/16 04:00 95 09/20/16 02:00 95 09/20/16 01:22 93 40 09/20/16 00:00 99.1 96 18 101/75 90 09/20/16 00:00 96 09/20/16 00:00 40 09/19/16 22:19 94 40 09/19/16 22:00 96 09/19/16 20:00 99.8 101 19 105/78 98 09/19/16 20:00 40 09/19/16 20:00 101 09/19/16 19:41 95 40 09/19/16 19:34 94 40 09/19/16 18:00 94 09/19/16 16:00 40 09/19/16 16:00 99.9 95 22 108/76 94 09/19/16 16:00 96 09/19/16 15:54 97 40 09/19/16 14:00 96 I/O 09/19/16 09/19/16 09/19/16 09/20/16 09/20/16 09/20/16 07:00 15:00 23:00 07:00 15:00 23:00 Intake Total 285 ml 450 ml 772 ml 545 ml Output Total 315 ml 0 ml 0 ml 10 ml 3500 ml Balance -30 ml 450 ml 772 ml 535 ml -3500 ml IV Total 285 ml 450 ml 490 ml 385 ml Tube Feeding 182 ml 60 ml Tube Irrigant 100 ml 100 ml Output Urine Total 5 ml 0 ml 0 ml 10 ml Stool Total 10 ml 0 ml 0 ml 0 ml Gastric Drainage Total 300 ml Hemodialysis 3500 ml Laboratory Laboratory Tests Test 09/20/16 04:15 White Blood Count 19.4 Red Blood Count 3.52 Hemoglobin 11.0 Hematocrit 31.3 Mean Corpuscular Volume 88.8 Mean Corpuscular Hemoglobin 31.1 Mean Corpuscular Hemoglobin 35.0 Concent Red Cell Distribution Width 15.6 Platelet Count 281 Mean Platelet Volume 9.3 Neutrophils (%) (Auto) 80.8 Lymphocytes (%) (Auto) 4.7 Monocytes (%) (Auto) 13.2 Eosinophils (%) (Auto) 1.0 Basophils (%) (Auto) 0.3 Neutrophils # (Auto) 15.7 Lymphocytes # (Auto) 0.9 Monocytes # (Auto) 2.6 Eosinophils # (Auto) 0.2 Basophils # (Auto) 0.1 CBC Comment AUTO DIFF Differential Total Cells 100 Counted Neutrophils % (Manual) 79 Band Neutrophils % 1 Lymphocytes % 7 Monocytes % 12 Basophils % 1 Neutrophils # (Manual) 15.5 Differential Comment FINAL DIFF MANUAL Platelet Estimate NORMAL Platelet Morphology Comment NORMAL Red Cell Morphology Comment NORMAL Sodium Level 135 Potassium Level 3.7 Chloride Level 94 Carbon Dioxide Level 19.3 Anion Gap 22 Blood Urea Nitrogen 107 Creatinine 14.48 Estimat Glomerular Filtration 3 Rate Random Glucose 164 Calcium Level 8.8 Total Bilirubin 0.8 Aspartate Amino Transf 332 (AST/SGOT) Alanine Aminotransferase 658 (ALT/SGPT) Alkaline Phosphatase 101 Total Creatine Kinase 1683 Creatine Kinase MB 3.4 Creatine Kinase MB % 0.2 Total Protein 8.1 Albumin 2.9 Date/Time Procedure Status Source Growth 09/17/16 13:20 Gram Stain - Final Resulted Sputum Endotracheal 09/17/16 13:20 Sputum Culture - Preliminary Resulted Pseudomonas Species 09/17/16 10:07 Aerobic Blood Culture - Preliminary Resulted Blood Peripheral NO GROWTH IN 3 DAYS 09/17/16 10:07 Anaerobic Blood Culture - Preliminary Resulted Blood Peripheral NO GROWTH IN 3 DAYS 09/16/16 01:45 Urine Culture - Final Complete Urine Catheterized Urine NO GROWTH IN 48 HOURS. 09/15/16 21:37 Aerobic Blood Culture - Final Complete Blood Other NO GROWTH IN 5 DAYS 09/15/16 21:37 Anaerobic Blood Culture - Final Complete Blood Other NO GROWTH IN 5 DAYS Imaging Last Impressions Liver Ultrasound 09/17/16 1030 Signed Impressions: Service Date/Time: Saturday, September 17, 2016 11:01 - CONCLUSION: 1. Minimally complex cyst right mid kidney. 2. Liver mildly enlarged. Cesar Mcfadden MD Abdomen X-Ray 09/17/16 0600 Signed Impressions: Service Date/Time: Saturday, September 17, 2016 05:05 - CONCLUSION: Nonspecific abdomen appearance. Michael Ross MD Chest X-Ray 09/15/16 1621 Signed Impressions: Service Date/Time: Thursday, September 15, 2016 16:33 - CONCLUSION: 1. Uncomplicated line placement. No evidence of pneumothorax. Wesley Chaudhari MD Head CT 09/15/16 0000 Signed Impressions: Service Date/Time: Thursday, September 15, 2016 10:15 - CONCLUSION: 1. Sizable area of decreased attenuation in the left MCA distribution most consistent with subacute cortical infarct. This there is stable compared to previous MR dated 09/09/16. Sanket Gonzalez MD Central Venous Line 09/15/16 0000 Signed Impressions: Service Date/Time: Thursday, September 15, 2016 00:00 - CONCLUSION: Uncomplicated line placement as above. Wesley Chaudhari MD Abdomen/Pelvis CT 09/15/16 0000 Signed Impressions: Service Date/Time: Thursday, September 15, 2016 17:00 - CONCLUSION: 1. Gaseous distension of the stomach. 2. I do not see evidence for significant colitis. Lowell Gonzalez MD FACR Catheter Placement X-Ray 09/14/16 0000 Signed Impressions: Service Date/Time: Wednesday, September 14, 2016 00:00 - CONCLUSION: Uncomplicated line placement as above. Wesley Chaudhari MD Carotid Artery Ultrasound 09/13/16 0000 Signed Impressions: Service Date/Time: Tuesday, September 13, 2016 16:46 - CONCLUSION: Significant plaque remains evident in the carotid bifurcations. Poor visualization and difficulty velocity sampling of the proximal internal carotid arteries was again encountered. Significant carotid stenosis cannot be excluded. Nonvisualization of the vertebral arteries. Mack Brizuela MD Brain MRI 09/09/16 0000 Signed Impressions: Service Date/Time: August 16:36 - CONCLUSION: 1. Findings demonstrate an acute infarction in the left sylvian region, nonhemorrhagic. 2. Small air-fluid level right maxillary sinus and mild bilateral ethmoid sinus disease. Suresh Diaz MD Renal Ultrasound 09/08/16 0000 Signed Impressions: Service Date/Time: Thursday, September 08, 2016 16:04 - CONCLUSION: Large 6.3 cm cyst lower pole laterally left kidney. No evidence of hydronephrosis or obstructive uropathy.. Christian Cooper MD Physical Exam HEENT: Normocephalic; atraumatic; no jaundice. NECK: Supple. CHEST: CTA, OETT to vent CARDIAC: RRR ABDOMEN: Soft, nondistended, nontender; no hepatosplenomegaly; bowel sounds are present in all four quadrants. OGT with TF EXTREMITIES: Generalized edema. SKIN: BLE cool/dry. ARCHITECTURE ANALYST: Intubated unresponsive Assessment and Plan Plan ASSESSMENT: - Dysphagia/FEN. IR not able to place G-J tube while patient on Plavix, requesting to hold for 5 days. case was discussed with Dr. Urena who would discuss with Dr. Cummins, as patient had a recent stent and is high risk for thrombosis Patient with known history of coronary artery disease and a recent CABG who also apparently had recent CVA, currently intubated patient also appears to be septic and hypotensive on vasopressors. Palliative care following. Family has decided to pursue EGD with PEG. TF was started, so far tolerating at 20cc/ hr. Nurse reports that he has had issues with high residuals, high gastric output. He previously had gaseous distention of stomach on CT. He does have a hx of DM. Possibly may have some underlying gastroparesis. - High gastric output with gaseous distention of stomach on CT. Abdomen/Pelvis CT (09/15/16)----> 1. Gaseous distension of the stomach. 2. I do not see evidence for significant colitis. Abdomen X-Ray (09/17/16)--- > Nonspecific abdomen appearance. - Acute ischemic left MCA, ARF, CHF, CAD, HTN, CKD per [facility] PL[facility]: - TF as tolerated - Consider -saul until decision is made regarding G-J tube - IR will discuss with Dr. Hogan in regards to holding Plavix for G/J tube placement - Further recommendations to follow based on results of above - Pt seen and examined by Dr. Barahona and myself and this note is written on his behalf Aleksandar Jamse Sep 20, 2016 12:31
--- NOTE | 2016-09-20 13:01 | HHI.NPPN ---
Subjective History of Present Illness 66-year-old male with history of coronary artery disease status post CABG, osteoarthritis, diabetes, hyperlipidemia who was admitted there with unstable angina and underwent heart catheterization found to have significant blockages requiring stent and impella device, he has acute renal failure. Additional Remarks Patient remain unresponsive off sedation and Vent Objective Data Data 09/19/16 09/20/16 19:00 07:00 Intake Total 450 ml 1317 ml Output Total 0 ml 10 ml Balance 450 ml 1307 ml IV Total 450 ml 875 ml Tube Feeding 242 ml Tube Irrigant 200 ml Output Urine Total 0 ml 10 ml Stool Total 0 ml 0 ml Vital Signs Date Time Temp Pulse Resp B/P Pulse Ox O2 Delivery O2 Flow Rate FiO2 09/20/16 11:08 96 40 09/20/16 10:00 101 09/20/16 08:00 90 09/20/16 08:00 40 09/20/16 08:00 98.9 90 19 105/70 93 09/20/16 07:39 94 40 09/20/16 06:00 91 09/20/16 04:02 92 40 09/20/16 04:00 40 09/20/16 04:00 99.1 91 18 123/61 92 09/20/16 04:00 95 09/20/16 02:00 95 09/20/16 01:22 93 40 09/20/16 00:00 99.1 96 18 101/75 90 09/20/16 00:00 96 09/20/16 00:00 40 09/19/16 22:19 94 40 09/19/16 22:00 96 09/19/16 20:00 99.8 101 19 105/78 98 09/19/16 20:00 40 09/19/16 20:00 101 09/19/16 19:41 95 40 09/19/16 19:34 94 40 09/19/16 18:00 94 09/19/16 16:00 40 09/19/16 16:00 99.9 95 22 108/76 94 09/19/16 16:00 96 09/19/16 15:54 97 40 09/19/16 14:00 96 -: 09/20/16 0415 09/20/16 0415 Physical Exam General Appearance: Well Developed, Well Nourished Pulmonary Resp Exam: Crackles, Rhonchi, Decreased Bases, Diminished Breath Sounds Cardiology CV Exam: Regular, Normal Sinus Rhythm Gastrointestinal/Abdomen GI Exam: Soft, Non-Tender, Bowel Sounds Present, Distended Extremeties Extremities Exam: Moderate Edema, Pitting Edema, Dependent Edema Neurologic Neuro Exam: Sedated Assessment/Plan Problem List: (1) Acute renal failure Plan: on vasopressor BP better on vent intubated He has elevation in the creatinine and he is oliguric. Renal failure on hemodialysis next HD done 3.5 L removed continue supportive care (2) Hyperkalemia Plan: Resolved (3) Chronic kidney disease Plan: He has stage III chronic kidney disease due to diabetic (4) CHF (congestive heart failure), NYHA class III Plan: Continue to monitor for improvement (5) Coronary artery disease involving [place] heart Plan: Review his bypass and stents (6) Hypertension, essential, benign Plan: Monitor blood pressure (7) Diabetes mellitus, type II Plan: Monitor blood glucose (8) UTI (lower urinary tract infection) Plan: Meropenem (9) CVA (cerebral vascular accident) Plan: remain unresponsive moves left side more (10) Need for prophylactic vaccination and inoculation against influenza (11) Clostridium difficile infection Plan: on PO Vanco Problem Qualifiers (1) Acute renal failure: Qualified Code: N17.0 - Acute renal failure with tubular necrosis (2) Chronic kidney disease: Qualified Code: N18.4 - Chronic kidney disease, stage 4 (severe) Marisol Naidu MD Sep 20, 2016 13:01
[2016-09-21] VITALS (19 sets, daily range): BP systolic 98–148; BP diastolic 64–76; PULSE 91–104; RESP 18–24; TEMP 99.2–102; O2SAT 90–97
[2016-09-21] MEDS: INSULIN NovoLIN REGULAR SUPPLEMENTAL SCALE SQ SCH ×6 (00:10→20:56)
[2016-09-21] MEDS: CHLORHEXIDINE GLUCONATE 2 % 1 PACK (2 CLOTHS) TOP SCH (04:00)
[2016-09-21] MEDS: MEROPENEM INJ 500 MG in SODIUM CHLORIDE 0.9% INJ 100 ML IV SCH ×2 (04:01→12:16)
[2016-09-21] MEDS: LINEZOLID 600 MG PREMIX 300 ML IV SCH ×2 (04:01→16:46)
[2016-09-21 04:46] LABS: AUTOMATED NEUTROPHIL # 13.1 TH/MM3 (1.8-7.7); BASOPHIL # 0.1 TH/MM3 (0-0.2); BASOPHIL % 0.5 % (0.0-2.0); EOSINOPHIL # 0.2 TH/MM3 (0-0.4); EOSINOPHIL % 1.4 % (0.0-4.0); LYMPH % 5.8 % (9.0-44.0); MEAN CELL VOLUME 88.6 FL (80.0-100.0); MEAN CORPUSCULAR HEMOGLOBIN 30.2 PG (27.0-34.0); MEAN CORPUSCULAR HGB CONC 34.1 % (32.0-36.0); MONO % 16.2 % (0.0-8.0); NEUT % 76.1 % (16.0-70.0); PLATELET COUNT 271 TH/MM3 (150-450); RED CELL DISTRIBUTION WIDTH 15.2 % (11.6-17.2); WHITE BLOOD COUNT 17.3 TH/MM3 (4.0-11.0)
[2016-09-21 04:52] LABS: HEMO FLAGS AUTO DIFF
[2016-09-21 05:11] LABS: ALKALINE PHOSPHATASE 124 U/L (45-117); ALT (GPT) 419 U/L (12-78); ANION GAP 17 MEQ/L (5-15); AST (GOT) 196 U/L (15-37); BICARBONATE 24.4 MEQ/L (21.0-32.0); BLOOD UREA NITROGEN 74 MG/DL (7-18); CHLORIDE 96 MEQ/L (98-107); GLOMERULAR FILTRATION RATE 5 ML/MIN (>89); POTASSIUM 3.5 MEQ/L (3.5-5.1); SODIUM (NA) 137 MEQ/L (136-145); TOTAL BILIRUBIN ADULT 0.8 MG/DL (0.2-1.0)
[2016-09-21 06:42] LABS: BANDS 12 % (0-6); EOSINOPHILS 2 % (0-4); NEUTROPHIL # MANUAL DIFF 12.8 TH/MM3 (1.8-7.7); POLYS (SEG NEUTROPHILS) 62 % (16-70); WBC DIFF SAMPLE 100
[2016-09-21 06:43] LABS: PLATELET ESTIMATE SMEAR NORMAL (NORMAL); PLATELET MORPHOLOGY NORMAL (NORMAL)
[2016-09-21 06:44] LABS: SCAN/DIFF FINAL DIFF MANUAL
--- NOTE | 2016-09-21 06:52 | HHI.PR ---
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 status little less agitated and still neglecting right side and moves left much better retry carotid us I wonder if stroke is from cardio embolism and if cardio feels relatively high risk for cardio embolism then anticoagulation might be in his best 09/15 less responsive, no sedation will obtaain ct brain f/u as he should be improving from neuro standpoint ??adtl infarct, hemorrhagic stroke transformation discussed with car wash attendant and RN 09/17 discussed with RN neuro basically unchanged repeat/follow up ct 2 days ago seen, no new neuro findings extension of continuing care being discussed between family and palliative care team, will monitor 09/21 with mild stim he awakens and moves 4 limbs right hemiparesis but he sustains right arm elevated on his own 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 though not sure he does it following instructions as he is probably significantly aphasic the multiple medical problems are the main deterrent to overall recovery as he improves medically the neuro status will gradually be better as well and I expect he will walk and might be verbal though aphasia is difficult to predict if he improves medically, 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 due to risk of additional cardioembolism will continue to follow peripherally, discussed with dr Leon Subjective Subjective Comments No acute neuro events reported Active Medications Current Medications Medications (Trade) Dose Ordered Sig/Eric Route Start Time Stop Time Status Last Admin (Plavix) 75 mg DAILY PO 09/08/16 09:00 09/20/16 09:18 (Imdur) 60 mg DAILY@07 PO 09/08/16 07:00 Hold 09/14/16 04:48 (NS Flush) 2 ml UNSCH PRN IV FLUSH 09/07/16 21:30 09/14/16 23:58 (NS Flush) 2 ml BID IV FLUSH 09/08/16 09:00 09/20/16 09:19 (Morphine Inj) 2 mg Q2H PRN IV 09/07/16 21:30 09/14/16 23:57 (Ativan Inj) 0.5 mg Q2HR PRN IV 09/07/16 21:30 09/17/16 20:43 (Zofran Inj) 4 mg Q6H PRN IV 09/07/16 21:30 09/08/16 22:00 (Reglan Inj) 5 mg Q6H PRN IV 09/07/16 21:30 09/16/16 17:54 Miscellaneous Information 1 Q361D XX 09/07/16 21:30 (Chlorhexidine 2% Cloth) Taper DAILY@04 TOP 09/08/16 04:00 09/04/17 03:59 09/20/16 04:00 (Chlorhexidine 2% Cloth) 3 pack UNSCH PRN TOP 09/07/16 21:30 (Apresoline Inj) 20 mg Q4H PRN IV PUSH 09/08/16 04:30 09/13/16 21:29 (D50w (Vial) Inj) 25 ml UNSCH PRN IV PUSH 09/08/16 12:45 (Glucagon Inj) 1 mg UNSCH PRN OTHER 09/08/16 12:45 (NovoLIN R SUPPLEMENTAL SCALE) 1 Q4H SQ 09/08/16 13:00 09/21/16 05:00 (Lopressor) 50 mg Q8H PO 09/09/16 14:00 Hold 09/14/16 20:56 (Heparin Inj) 5,000 units Q12HR SQ 09/09/16 09:00 09/20/16 20:42 (Lacrilube Opht Oint) 1 applic BID EACH EYE 09/09/16 21:00 09/20/16 20:40 (Peridex 0.12% Liq) 15 ml BID@08,20 MT 09/10/16 20:00 09/20/16 20:40 Docusate Sodium 100 mg 100 mg BID PO 09/11/16 10:00 09/20/16 20:40 (NS 1000 ml Inj) 1,000 ml @ 5 mls/hr Q24H IV 09/13/16 11:00 09/20/16 09:04 (Protonix Inj) 40 mg Q12H IV PUSH 09/13/16 20:00 09/20/16 20:40 Heparin Sodium (Porcine) 8000 units 8,000 units UNSCH PRN IVF 09/14/16 11:00 (NS 1000 ml Inj) 1,000 ml @ 0 mls/hr Q0M PRN IV 09/14/16 10:48 09/20/16 09:05 (Mannitol Inj) 12.5 gm UNSCH PRN IV 09/14/16 11:00 09/20/16 09:06 (Albumin 25% Inj) 25 gm UNSCH PRN IV 09/14/16 11:00 09/20/16 09:06 (NS Flush) 5 ml UNSCH PRN IVF 09/14/16 11:00 09/20/16 09:05 (Heparin Inj) UNSCH PRN .XX 09/14/16 11:00 09/20/16 09:05 (Gentamicin (Dialysis) Inj) 20 mg UNSCH PRN IV 09/14/16 11:00 09/20/16 09:05 (Zofran Inj) 4 mg UNSCH PRN IV 09/14/16 11:00 (Benadryl) 25 mg UNSCH PRN PO 09/14/16 11:00 (Nitrostat Sl) 0.4 mg UNSCH PRN SL 09/14/16 11:00 (Catapres) 0.1 mg UNSCH PRN PO 09/14/16 11:00 (Gelfoam 12 Mm/7 Mm Top) 1 foam UNSCH PRN TOP 09/14/16 11:00 (NS Flush) UNSCH PRN IVF 09/14/16 16:00 Heparin Sodium (Porcine) UNSCH PRN IVF 09/14/16 16:00 (Neosynephrine Inj/D5W 500 ml Inj) 500 ml @ 0 mls/hr TITRATE IV 09/15/16 10:00 09/18/16 06:10 Terbutaline Sulfate 1 mg 1 mg UNSCH PRN SQ 09/15/16 09:00 (Diprivan 1000 Mg/100ml Inj) 100 ml @ 0 mls/hr TITRATE IV 09/15/16 13:45 (VANCOMYCIN for oral use only) 125 mg QID PO 09/15/16 18:00 09/20/16 20:40 (NS Flush) DAILY IVF 09/16/16 09:00 09/17/16 08:22 IV Flush UNSCH PRN IVF 09/15/16 16:45 (Merrem Inj/NS Inj) 100 ml @ 200 mls/hr Q8H IV 09/15/16 20:00 09/21/16 04:01 Fentanyl Citrate 50 mcg 50 mcg Q1H PRN IV PUSH 09/15/16 23:30 (fentaNYL DRIP) 250 ml @ 0 mls/hr TITRATE IV 09/15/16 23:30 09/19/16 21:35 Acetaminophen 650 mg 650 mg Q6H PRN IV 09/16/16 01:45 (Zyvox 600 Mg Premix) 300 ml @ 300 mls/hr Q12H IV 09/16/16 16:00 09/21/16 04:01 (Levemir Inj) 5 units Q12HR SQ 09/18/16 09:00 09/20/16 20:43 (Senna Liq) 8.8 mg DAILY PO 09/19/16 09:00 09/20/16 09:18 (Aspirin Chew) 81 mg DAILY CHEW 09/19/16 10:00 09/20/16 09:18 Allergies Allergies Coded Allergies No Known Allergies (Verified09/07/16) Exam I&O / VS 09/20/16 09/20/16 09/21/16 15:00 23:00 07:00 Intake Total 320 ml 617 ml 490 ml Output Total 3700 ml 105 ml 50 ml Balance -3380 ml 512 ml 440 ml Intake Oral 0 ml 0 ml IV Total 320 ml 367 ml 295 ml Tube Feeding 190 ml 135 ml Other 60 ml 60 ml Output Urine Total 0 ml 5 ml 0 ml Stool Total 200 ml 100 ml 50 ml Hemodialysis 3500 ml Vital Signs Date Time Temp Pulse Resp B/P Pulse Ox O2 Delivery O2 Flow Rate FiO2 09/21/16 06:00 95 09/21/16 04:03 97 40 09/21/16 04:00 99.2 94 18 110/68 97 09/21/16 04:00 40 09/21/16 04:00 94 09/21/16 02:00 96 09/21/16 01:08 95 40 09/21/16 00:00 96 09/21/16 00:00 40 09/21/16 00:00 99.3 96 18 121/66 90 09/20/16 22:11 95 40 09/20/16 22:00 96 09/20/16 20:00 102 09/20/16 20:00 40 09/20/16 20:00 100.0 102 18 116/67 94 09/20/16 19:36 94 40 09/20/16 18:00 101 09/20/16 17:50 95 40 09/20/16 17:05 93 40 09/20/16 16:00 40 09/20/16 16:00 98.8 105 17 98/56 96 09/20/16 16:00 101 09/20/16 15:55 40 09/20/16 14:00 101 09/20/16 12:00 40 09/20/16 12:00 101 09/20/16 12:00 99.7 97 23 107/58 95 09/20/16 11:08 96 40 09/20/16 10:00 101 09/20/16 08:00 90 09/20/16 08:00 40 09/20/16 08:00 98.9 90 19 105/70 93 09/20/16 07:39 94 40 Objective Micro and Labs Laboratory Tests Test 09/21/16 04:00 White Blood Count 17.3 Red Blood Count 3.50 Hemoglobin 10.6 Hematocrit 31.0 Mean Corpuscular Volume 88.6 Mean Corpuscular Hemoglobin 30.2 Mean Corpuscular Hemoglobin 34.1 Concent Red Cell Distribution Width 15.2 Platelet Count 271 Mean Platelet Volume 9.3 Neutrophils (%) (Auto) 76.1 Lymphocytes (%) (Auto) 5.8 Monocytes (%) (Auto) 16.2 Eosinophils (%) (Auto) 1.4 Basophils (%) (Auto) 0.5 Neutrophils # (Auto) 13.1 Lymphocytes # (Auto) 1.0 Monocytes # (Auto) 2.8 Eosinophils # (Auto) 0.2 Basophils # (Auto) 0.1 CBC Comment AUTO DIFF Sodium Level 137 Potassium Level 3.5 Chloride Level 96 Carbon Dioxide Level 24.4 Anion Gap 17 Blood Urea Nitrogen 74 Creatinine 10.96 Estimat Glomerular Filtration 5 Rate Random Glucose 183 Calcium Level 8.6 Total Bilirubin 0.8 Aspartate Amino Transf 196 (AST/SGOT) Alanine Aminotransferase 419 (ALT/SGPT) Alkaline Phosphatase 124 Total Protein 8.7 Albumin 3.4 Date/Time Procedure Status Source Growth 09/17/16 13:20 Gram Stain - Final Resulted Sputum Endotracheal 09/17/16 13:20 Sputum Culture - Preliminary Resulted Pseudomonas Species 09/17/16 10:07 Aerobic Blood Culture - Preliminary Resulted Blood Peripheral NO GROWTH IN 3 DAYS 09/17/16 10:07 Anaerobic Blood Culture - Preliminary Resulted Blood Peripheral NO GROWTH IN 3 DAYS Shahnaz Nguyen MD Sep 21, 2016 06:52
--- NOTE | 2016-09-21 07:24 | HHI.CCPN ---
Subjective Remarks/Hospital Course 66-year-old gentleman with a history of coronary artery disease status post CABG underwent emergent cardiac catheterization by Dr. Cummins. Postprocedure his course is complicated by aphasia and right-sided weakness. 09/08 Patient was on BIPAP 14/7 with FIO2 25%. On Precedex and heparin drips. CT brain showed last night showed no acute process. Impela was removed this morning by Dr. Cummins. T:99.9 Renal function improving with Cr:2.5 from 3.0 hyperkalemic with K 6.1 09/09: Overnight remained on BiPAP predominantly for sleep apnea. Intermittently follows commands. Will check MRI of the brain today. Creatinine slightly worsened to 2.8. Consulted nephrology, hyperkalemia resolved 09/10: Remains on BiPAP, some interval worsening of respiratory status. Patient is more tachypneic chest x-ray shows left lower lobe infiltrate .Currently sedated with 0.5 g per KG per hour of Precedex. I will discontinue Precedex. MRI brain shows acute infarct left sylvian region. Creatinine slightly worse at 3. Low-grade fever Tmax 100.2, send blood and sputum culture and start Zosyn 09/11: Patient was intubated yesterday for progressively worsening respiratory failure, hypoxemia and altered mentation. On ventilator support patient's oxygenation has improved. He moves all extremities do not following commands. Chest x-ray shows no definite infiltrates 09/12: Extubated yesterday tolerating well oxygenation varghese and protecting airway. No fevers. Urine output 3.8 L in 24 hours with creatinine worsening from 3.9 to 4.5 today. Remains aphasic not following commands 09/13: Somnolent, received Ativan for agitation overnight. Urine output 4 L in 24 hours. Labs are pending at this time. Opens eyes to verbal stimulation, remains aphasic and did not follow commands 09/14 Patient appears somnolent. On no sedation. Renal function worse today with Cr: 7.31 from 5.40 and UO: 715ml in 24hrs. T:100.9 this morning. Remains aphasic. 09/15 Patient was placed on Amio drip overnight for Afib with RVR. HD initiated yesterday with removal 2L. He is currently receiving another HD treatment. Tmax 100.9. Patient remains encephalopathic and does not follow commands. TF was held due to high residuals. 09/16 Patient was intubated yesterday for airway protection. On Fentanyl drip for sedation on Neosyn. Tmax 104. C-diff PCR positive. CT abd/pelvis showed no acute process, gaseous distention. 09/17 Patient remains intubated and sedated with Fentanyl. On Neosyn 75 mics. T: 101.8 at 4 am. 09/18 Patient remains sedated and intubated. T:101.1 last night. On Neosyn 60 mics. 09/19 No acute events overnight. Off Neosyn and is on Fentanyl infusion for sedation. T:100.5. Tolerated CPAP x 4 hrs yesterday. Patient was able to open up his eyes off sedation. 09/20 Patient remains sedated with Fentanyl and intubated. T:99.8 last night. WBC trending down. Off Neosyn. For J-tube placement by IR today. 09/21 Patient remains sedated and intubated. T:100.0 last night. s/p HD yesterday with removal 3.5L. Objective Vital Signs Date Time Temp Pulse Resp B/P Pulse Ox O2 Delivery O2 Flow Rate FiO2 09/21/16 06:00 95 09/21/16 04:03 97 40 09/21/16 04:00 99.2 18 110/68 Intake and Output 09/20/16 09/20/16 09/21/16 08:00 16:00 00:00 Intake Total 545 ml 320 ml 617 ml Output Total 10 ml 3700 ml 105 ml Balance 535 ml -3380 ml 512 ml Result Diagram: 09/21/16 0400 09/21/16 0400 Other Results Laboratory Tests Test 09/21/16 04:00 White Blood Count 17.3 TH/MM3 Red Blood Count 3.50 MIL/MM3 Hemoglobin 10.6 GM/DL Hematocrit 31.0 % Mean Corpuscular Volume 88.6 FL Mean Corpuscular Hemoglobin 30.2 PG Mean Corpuscular Hemoglobin 34.1 % Concent Red Cell Distribution Width 15.2 % Platelet Count 271 TH/MM3 Mean Platelet Volume 9.3 FL Neutrophils (%) (Auto) 76.1 % Lymphocytes (%) (Auto) 5.8 % Monocytes (%) (Auto) 16.2 % Eosinophils (%) (Auto) 1.4 % Basophils (%) (Auto) 0.5 % Neutrophils # (Auto) 13.1 TH/MM3 Lymphocytes # (Auto) 1.0 TH/MM3 Monocytes # (Auto) 2.8 TH/MM3 Eosinophils # (Auto) 0.2 TH/MM3 Basophils # (Auto) 0.1 TH/MM3 CBC Comment AUTO DIFF Differential Total Cells 100 Counted Neutrophils % (Manual) 62 % Band Neutrophils % 12 % Lymphocytes % 8 % Monocytes % 16 % Eosinophils % 2 % Neutrophils # (Manual) 12.8 TH/MM3 Differential Comment FINAL DIFF MANUAL Platelet Estimate NORMAL Platelet Morphology Comment NORMAL Sodium Level 137 MEQ/L Potassium Level 3.5 MEQ/L Chloride Level 96 MEQ/L Carbon Dioxide Level 24.4 MEQ/L Anion Gap 17 MEQ/L Blood Urea Nitrogen 74 MG/DL Creatinine 10.96 MG/DL Estimat Glomerular Filtration 5 ML/MIN Rate Random Glucose 183 MG/DL Calcium Level 8.6 MG/DL Total Bilirubin 0.8 MG/DL Aspartate Amino Transf 196 U/L (AST/SGOT) Alanine Aminotransferase 419 U/L (ALT/SGPT) Alkaline Phosphatase 124 U/L Total Protein 8.7 GM/DL Albumin 3.4 GM/DL Imaging Last Impressions Liver Ultrasound 09/17/16 1030 Signed Impressions: Service Date/Time: Saturday, September 17, 2016 11:01 - CONCLUSION: 1. Minimally complex cyst right mid kidney. 2. Liver mildly enlarged. Cesar Mcfadden MD Abdomen X-Ray 09/17/16 0600 Signed Impressions: Service Date/Time: Saturday, September 17, 2016 05:05 - CONCLUSION: Nonspecific abdomen appearance. Michael Ross MD Chest X-Ray 09/15/16 1621 Signed Impressions: Service Date/Time: Thursday, September 15, 2016 16:33 - CONCLUSION: 1. Uncomplicated line placement. No evidence of pneumothorax. Wesley Chaudhari MD Head CT 09/15/16 0000 Signed Impressions: Service Date/Time: Thursday, September 15, 2016 10:15 - CONCLUSION: 1. Sizable area of decreased attenuation in the left MCA distribution most consistent with subacute cortical infarct. This there is stable compared to previous MR dated 09/09/16. Sanket Gonzalez MD Central Venous Line 09/15/16 0000 Signed Impressions: Service Date/Time: Thursday, September 15, 2016 00:00 - CONCLUSION: Uncomplicated line placement as above. Wesley Chaudhari MD Abdomen/Pelvis CT 09/15/16 0000 Signed Impressions: Service Date/Time: Thursday, September 15, 2016 17:00 - CONCLUSION: 1. Gaseous distension of the stomach. 2. I do not see evidence for significant colitis. Lowell Gonzalez MD FACR Catheter Placement X-Ray 09/14/16 0000 Signed Impressions: Service Date/Time: Wednesday, September 14, 2016 00:00 - CONCLUSION: Uncomplicated line placement as above. Wesley Chaudhari MD Carotid Artery Ultrasound 09/13/16 0000 Signed Impressions: Service Date/Time: Tuesday, September 13, 2016 16:46 - CONCLUSION: Significant plaque remains evident in the carotid bifurcations. Poor visualization and difficulty velocity sampling of the proximal internal carotid arteries was again encountered. Significant carotid stenosis cannot be excluded. Nonvisualization of the vertebral arteries. Mack Brizuela MD Brain MRI 09/09/16 0000 Signed Impressions: Service Date/Time: August 16:36 - CONCLUSION: 1. Findings demonstrate an acute infarction in the left sylvian region, nonhemorrhagic. 2. Small air-fluid level right maxillary sinus and mild bilateral ethmoid sinus disease. Suresh Diaz MD Renal Ultrasound 09/08/16 0000 Signed Impressions: Service Date/Time: Thursday, September 08, 2016 16:04 - CONCLUSION: Large 6.3 cm cyst lower pole laterally left kidney. No evidence of hydronephrosis or obstructive uropathy.. Christian Cooper MD Objective Remarks GENERAL: Well-nourished, well-developed patient intubated and sedated SKIN: Warm and dry. HEAD: Normocephalic. EYES: No scleral icterus. No injection or drainage. ENT: Oral cavity moist NECK: Supple, trachea midline. No JVD or lymphadenopathy. Orally intubated CARDIOVASCULAR: Regular rate and rhythm without murmurs, gallops, or rubs. RESPIRATORY: Breath sounds equal bilaterally. No accessory muscle use. GASTROINTESTINAL: Abdomen soft, non-tender, nondistended. MUSCULOSKELETAL: No cyanosis, or edema. BACK: Nontender without obvious deformity. EXTREMITIES: Able to open eyes and moves extremities spontaneously however he does not follow commands or tracks A/P Problem List: (1) Acute ischemic left MCA stroke ICD Code: I63.512 Status: Acute (2) Acute renal failure ICD Code: N17.9 Status: Acute (3) CHF (congestive heart failure), NYHA class III ICD Code: I50.9 Status: Acute (4) Coronary artery disease involving [place] heart ICD Code: I25.10 Status: Chronic (5) HTN (hypertension) ICD Code: I10 Status: Acute (6) CKD (chronic kidney disease) ICD Code: N18.9 Status: Acute Assessment and Plan ASSESSMENT Acute left MCA stroke Aphasia with right hemiparesis Metabolic encephalopathy NSTEMI Known CAD C-diff colitis Obstructive sleep apnea UTI with enterococcus HCAP Acute hypoxemic respiratory failure-resolved Acute on chronic kidney disease Hyperkalemia-resolved DM HTN LEONARD Hyperlipidemia Plan Neuro: -On Fentanyl infusion. Monitor neuro status. Ativan PRN for agitation -Repeat CT brain 09/15: Sizable area of decreased attenuation in the left MCA distribution most consistent with subacute cortical infarct -MRI brain 09/09/16-acute left sylvian region infarct. CT brain 09/07: No acute disease. -Continue aspirin and Plavix. Neuro was following- Cr. Patrick. -09/13 EEG: within normal. Pulm: -Continue with vent support keep sat >92% Check CXR -Bronchodilators, ICU vent bundle, CPAP trials as khris. Will need trach if family desires aggressive care. Discussed with patient' daughter Yani regarding need of trach she will discuss it further with her brother Sedrick before making a final decision. CV: -Monitor HR and BP keep MAP>65mmHg -Continue with ASA, Plavix. Imdur and Lopressor on hold. -Lipitor held for elevated LFT's -s/p cardiac cath 09/07 showed multivessel disease with 2/6 grafts patent, EF 40% . s/p PCI with stents of the saphenous venous graft to the first diagonal artery. -s/p removal Impella 09/08. Cardiology- Dr. Cummins : -Monitor renal function, I/O's, avoid nephrotoxins. -HD initiated 09/14 , s/p HD yesterday with removal 3.5L -Renal-Dr. Naidu. . Monitor CK's ( trending down) GI: - On Protonix 40mg -GI is following - Monitor LFT's ( trending down), Hepatitis profile negative on 09/14 -US Liver: Minimally complex cyst right mid kidney. Liver mildly enlarged. -Continue with TF- Nepro @20ml/hr advance it to goal rate. ID: Leukocytosis...trending down C-diff colitis Sputum cx: 09/17 Pseudomonas species -Continue abx per ID ( PO Vanco, Merrem, Zyvox). Monitor for signs of infections ( Fever, WBC) -Check BC x 2 sets -CT abd/pelvis: Gaseous distention, no acute process -KUB abdomen 09/17- non specific bowel gas pattern Heme: -Monitor CBC Endo: -SSI( Medium) with accuchecks for glycemic control, Levemir 5u Q12 GI prophylaxis - on Protonix 40mg Q12 DVT prophylaxis - SCD, Heparin 5000 units sq very 12 Palliative care is following. Lines: Right Vascth placed 09/14, Right IJ CVP placed 09/15 CCT 30 mins Problem Qualifiers (1) Acute renal failure: Qualified Code: N17.0 - Acute renal failure with tubular necrosis Leroy Urena MD Sep 21, 2016 07:24
--- NOTE | 2016-09-21 09:06 | HHI.NPPN ---
Subjective History of Present Illness 66-year-old male with history of coronary artery disease status post CABG, osteoarthritis, diabetes, hyperlipidemia who was admitted there with unstable angina and underwent heart catheterization found to have significant blockages requiring stent and impella device, he has acute renal failure. Additional Remarks Patient remain unresponsive off sedation and Vent Objective Data Data 09/20/16 09/21/16 19:00 07:00 Intake Total 320 ml 1107 ml Output Total 3700 ml 155 ml Balance -3380 ml 952 ml Intake Oral 0 ml IV Total 320 ml 662 ml Tube Feeding 325 ml Other 120 ml Output Urine Total 0 ml 5 ml Stool Total 200 ml 150 ml Hemodialysis 3500 ml Vital Signs Date Time Temp Pulse Resp B/P Pulse Ox O2 Delivery O2 Flow Rate FiO2 09/21/16 07:52 93 40 09/21/16 07:50 40 09/21/16 06:00 95 09/21/16 04:03 97 40 09/21/16 04:00 99.2 94 18 110/68 97 09/21/16 04:00 40 09/21/16 04:00 94 09/21/16 02:00 96 09/21/16 01:08 95 40 09/21/16 00:00 96 09/21/16 00:00 40 09/21/16 00:00 99.3 96 18 121/66 90 09/20/16 22:11 95 40 09/20/16 22:00 96 09/20/16 20:00 102 09/20/16 20:00 40 09/20/16 20:00 100.0 102 18 116/67 94 09/20/16 19:36 94 40 09/20/16 18:00 101 09/20/16 17:50 95 40 09/20/16 17:05 93 40 09/20/16 16:00 40 09/20/16 16:00 98.8 105 17 98/56 96 09/20/16 16:00 101 09/20/16 15:55 40 09/20/16 14:00 101 09/20/16 12:00 40 09/20/16 12:00 101 09/20/16 12:00 99.7 97 23 107/58 95 09/20/16 11:08 96 40 09/20/16 10:00 101 -: 09/21/16 0400 3/7/17 0400 Physical Exam General Appearance: Well Developed, Well Nourished Pulmonary Resp Exam: Crackles, Rhonchi, Decreased Bases, Diminished Breath Sounds Cardiology CV Exam: Regular, Normal Sinus Rhythm Gastrointestinal/Abdomen GI Exam: Soft, Non-Tender, Bowel Sounds Present, Distended Extremeties Extremities Exam: Moderate Edema, Pitting Edema, Dependent Edema Neurologic Neuro Exam: Sedated Assessment/Plan Problem List: (1) Acute renal failure Plan: on vasopressor BP better on vent intubated He has elevation in the creatinine and he is oliguric. Renal failure on hemodialysis HD on M,W,F continue supportive care (2) Hyperkalemia Plan: Resolved (3) Chronic kidney disease Plan: He has stage III chronic kidney disease due to diabetic (4) CHF (congestive heart failure), NYHA class III Plan: Continue to monitor for improvement (5) Coronary artery disease involving [place] heart Plan: Review his bypass and stents (6) Hypertension, essential, benign Plan: Monitor blood pressure (7) Diabetes mellitus, type II Plan: Monitor blood glucose (8) UTI (lower urinary tract infection) Plan: Meropenem (9) CVA (cerebral vascular accident) Plan: remain unresponsive moves left side more (10) Need for prophylactic vaccination and inoculation against influenza (11) Clostridium difficile infection Plan: on PO Vanco Problem Qualifiers (1) Acute renal failure: Qualified Code: N17.0 - Acute renal failure with tubular necrosis (2) Chronic kidney disease: Qualified Code: N18.4 - Chronic kidney disease, stage 4 (severe) Marisol Naidu MD Sep 21, 2016 09:05
[2016-09-21] MEDS: SODIUM CHLOR 0.9% 1000 ML INJ 1,000 ML IV SCH (09:07)
--- NOTE | 2016-09-21 09:24 | RADRPT ---
EXAM DATE/TIME: 09/21/2016 07:47 [facility] COMPARISON: CHEST SINGLE AP, September 15, 2016, 16:33. INDICATIONS : Short of breath, respiratory failure MEDICAL HISTORY : Stroke. Cardiovascular disease. Hypertension. diabetes SURGICAL HISTORY : CABG. ENCOUNTER: Subsequent ACUITY: 1 week PAIN SCORE: Non-responsive. LOCATION: Bilateral chest FINDINGS: Supportive devices which include a right jugular Vas-Cath, endotracheal tube and nasogastric tube are in stable position. The lungs are main free of significant congestion or acute air space disease. Heart and mediastinal structures are stable. CONCLUSION: Stable chest without evidence of significant congestion or acute air space disease. Stable satisfactory position and supported devices. Mack Brizuela MD on September 21, 2016 at 9:21 Board Certified Radiologist. This report was verified electronically.
[2016-09-21] MEDS: SODIUM CHLORIDE 0.9% FLUSH 5 ML FLUSH IVF SCH (09:45)
[2016-09-21] MEDS: DOCUSATE SODIUM 100 MG/10 ML UDC PO SCH ×2 (09:45→20:48)
[2016-09-21] MEDS: SODIUM CHLORIDE 0.9% FLUSH 5 ML FLUSH IV FLUSH SCH ×2 (09:45→20:48)
[2016-09-21] MEDS: SENNOSIDES SYRUP 8.8 MG/5 ML CUP PO SCH (09:45)
[2016-09-21] MEDS: PANTOPRAZOLE SODIUM 40 MG VIAL IV PUSH SCH ×2 (09:45→20:50)
[2016-09-21] MEDS: INSULIN DETEMIR 100 UNITS/ML VIAL SQ SCH ×2 (09:46→20:49)
[2016-09-21] MEDS: CLOPIDOGREL 75 MG TAB PO SCH (09:46)
[2016-09-21] MEDS: ASPIRIN 81 MG CHEW TAB CHEW SCH (09:46)
[2016-09-21] MEDS: HEPARIN SODIUM - SQ 10,000 UNITS/ML VIAL SQ SCH ×2 (09:47→20:49)
[2016-09-21] MEDS: VANCOMYCIN 500 MG VIAL (FOR ORAL USE ONLY) PO SCH ×4 (09:47→20:50)
[2016-09-21] MEDS: ARTIFICIAL TEARS OPTH OINT 3.5 APPLIC/3.5 GM TUBO EACH EYE SCH ×2 (09:47→20:48)
[2016-09-21] MEDS: CHLORHEXIDINE 0.12% (ORAL KIT) 15 ML CUP MT SCH ×2 (09:47→20:48)
--- NOTE | 2016-09-21 10:31 | HHI.GIFU ---
Subjective Remarks Patient resting in bed. Spoke to Dr. Brizuela yesterday- they are unable to place GJ tube until Plavix has been off for 5 days. D/W Dr. Leon, patient has stent and he is unsure if plavix can be held, as per Dr. Cummins, the patient will need to remain on Plavix and ASA to avoid occlusion of stent. Spoke to Nurse Consuelo, who will check with Dr. Cummins re: plavix and will notify us to let us know if this can be held. If not, will d/w Dr. Barahona to see the possibility of placing G tube on Plavix and possibly having IR later convert to G/J tube if unable to tolerate the TF. Objective Vitals I&O Vital Signs Date Time Temp Pulse Resp B/P Pulse Ox O2 Delivery O2 Flow Rate FiO2 09/21/16 07:52 93 40 09/21/16 07:50 40 09/21/16 06:00 95 09/21/16 04:03 97 40 09/21/16 04:00 99.2 94 18 110/68 97 09/21/16 04:00 40 09/21/16 04:00 94 09/21/16 02:00 96 09/21/16 01:08 95 40 09/21/16 00:00 96 09/21/16 00:00 40 09/21/16 00:00 99.3 96 18 121/66 90 09/20/16 22:11 95 40 09/20/16 22:00 96 09/20/16 20:00 102 09/20/16 20:00 40 09/20/16 20:00 100.0 102 18 116/67 94 09/20/16 19:36 94 40 09/20/16 18:00 101 09/20/16 17:50 95 40 09/20/16 17:05 93 40 09/20/16 16:00 40 09/20/16 16:00 98.8 105 17 98/56 96 09/20/16 16:00 101 09/20/16 15:55 40 09/20/16 14:00 101 09/20/16 12:00 40 09/20/16 12:00 101 09/20/16 12:00 99.7 97 23 107/58 95 09/20/16 11:08 96 40 I/O 09/20/16 09/20/16 09/20/16 09/21/16 09/21/16 09/21/16 07:00 15:00 23:00 07:00 15:00 23:00 Intake Total 545 ml 320 ml 617 ml 490 ml Output Total 10 ml 3700 ml 105 ml 50 ml Balance 535 ml -3380 ml 512 ml 440 ml Intake Oral 0 ml 0 ml IV Total 385 ml 320 ml 367 ml 295 ml Tube Feeding 60 ml 190 ml 135 ml Tube Irrigant 100 ml Other 60 ml 60 ml Output Urine Total 10 ml 0 ml 5 ml 0 ml Stool Total 0 ml 200 ml 100 ml 50 ml Hemodialysis 3500 ml Laboratory Laboratory Tests Test 09/21/16 04:00 White Blood Count 17.3 Red Blood Count 3.50 Hemoglobin 10.6 Hematocrit 31.0 Mean Corpuscular Volume 88.6 Mean Corpuscular Hemoglobin 30.2 Mean Corpuscular Hemoglobin 34.1 Concent Red Cell Distribution Width 15.2 Platelet Count 271 Mean Platelet Volume 9.3 Neutrophils (%) (Auto) 76.1 Lymphocytes (%) (Auto) 5.8 Monocytes (%) (Auto) 16.2 Eosinophils (%) (Auto) 1.4 Basophils (%) (Auto) 0.5 Neutrophils # (Auto) 13.1 Lymphocytes # (Auto) 1.0 Monocytes # (Auto) 2.8 Eosinophils # (Auto) 0.2 Basophils # (Auto) 0.1 CBC Comment AUTO DIFF Differential Total Cells 100 Counted Neutrophils % (Manual) 62 Band Neutrophils % 12 Lymphocytes % 8 Monocytes % 16 Eosinophils % 2 Neutrophils # (Manual) 12.8 Differential Comment FINAL DIFF MANUAL Platelet Estimate NORMAL Platelet Morphology Comment NORMAL Sodium Level 137 Potassium Level 3.5 Chloride Level 96 Carbon Dioxide Level 24.4 Anion Gap 17 Blood Urea Nitrogen 74 Creatinine 10.96 Estimat Glomerular Filtration 5 Rate Random Glucose 183 Calcium Level 8.6 Total Bilirubin 0.8 Aspartate Amino Transf 196 (AST/SGOT) Alanine Aminotransferase 419 (ALT/SGPT) Alkaline Phosphatase 124 Total Protein 8.7 Albumin 3.4 Date/Time Procedure Status Source Growth 09/21/16 09:40 Aerobic Blood Culture Received Blood Peripheral Pending 09/21/16 09:40 Anaerobic Blood Culture Received Blood Peripheral Pending 09/17/16 13:20 Gram Stain - Final Resulted Sputum Endotracheal 09/17/16 13:20 Sputum Culture - Preliminary Resulted Pseudomonas Species 09/17/16 10:07 Aerobic Blood Culture - Preliminary Resulted Blood Peripheral NO GROWTH IN 3 DAYS 09/17/16 10:07 Anaerobic Blood Culture - Preliminary Resulted Blood Peripheral NO GROWTH IN 3 DAYS Imaging Last Impressions Chest X-Ray 09/21/16 0000 Signed Impressions: Service Date/Time: Wednesday, September 21, 2016 07:47 - CONCLUSION: Stable chest without evidence of significant congestion or acute air space disease. Stable satisfactory position and supported devices. Mack Brizuela MD Liver Ultrasound 09/17/16 1030 Signed Impressions: Service Date/Time: Saturday, September 17, 2016 11:01 - CONCLUSION: 1. Minimally complex cyst right mid kidney. 2. Liver mildly enlarged. Cesar Mcfadden MD Abdomen X-Ray 09/17/16 0600 Signed Impressions: Service Date/Time: Saturday, September 17, 2016 05:05 - CONCLUSION: Nonspecific abdomen appearance. Michael Ross MD Head CT 09/15/16 0000 Signed Impressions: Service Date/Time: Thursday, September 15, 2016 10:15 - CONCLUSION: 1. Sizable area of decreased attenuation in the left MCA distribution most consistent with subacute cortical infarct. This there is stable compared to previous MR dated 09/09/16. Sanket Gonzalez MD Central Venous Line 09/15/16 0000 Signed Impressions: Service Date/Time: Thursday, September 15, 2016 00:00 - CONCLUSION: Uncomplicated line placement as above. Wesley Chaudhari MD Abdomen/Pelvis CT 09/15/16 0000 Signed Impressions: Service Date/Time: Thursday, September 15, 2016 17:00 - CONCLUSION: 1. Gaseous distension of the stomach. 2. I do not see evidence for significant colitis. Lowell Gonzalez MD FACR Catheter Placement X-Ray 09/14/16 0000 Signed Impressions: Service Date/Time: Wednesday, September 14, 2016 00:00 - CONCLUSION: Uncomplicated line placement as above. Wesley Chaudhari MD Carotid Artery Ultrasound 09/13/16 0000 Signed Impressions: Service Date/Time: Tuesday, September 13, 2016 16:46 - CONCLUSION: Significant plaque remains evident in the carotid bifurcations. Poor visualization and difficulty velocity sampling of the proximal internal carotid arteries was again encountered. Significant carotid stenosis cannot be excluded. Nonvisualization of the vertebral arteries. Mack Brizuela MD Brain MRI 09/09/16 0000 Signed Impressions: Service Date/Time: August 16:36 - CONCLUSION: 1. Findings demonstrate an acute infarction in the left sylvian region, nonhemorrhagic. 2. Small air-fluid level right maxillary sinus and mild bilateral ethmoid sinus disease. Suresh Diaz MD Renal Ultrasound 09/08/16 0000 Signed Impressions: Service Date/Time: Thursday, September 08, 2016 16:04 - CONCLUSION: Large 6.3 cm cyst lower pole laterally left kidney. No evidence of hydronephrosis or obstructive uropathy.. Christian Cooper MD Physical Exam HEENT: Normocephalic; atraumatic; no jaundice. NECK: Supple. CHEST: CTA, OETT to vent CARDIAC: RRR ABDOMEN: Soft, nondistended, nontender; no hepatosplenomegaly; bowel sounds are present in all four quadrants. OGT with TF EXTREMITIES: Generalized edema. SKIN: BLE cool/dry. 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 Patient with known history of coronary artery disease and a recent CABG who also apparently had recent CVA, currently intubated patient also appears to be septic and hypotensive on vasopressors. Palliative care following. Family has decided to pursue EGD with PEG. TF was started, so far tolerating at 20cc/ hr. Nurse reports that he has had issues with high residuals, high gastric output. He previously had gaseous distention of stomach on CT. He does have a hx of DM. Possibly may have some underlying gastroparesis and therefore IR was consulted for G/ J tube placement. Spoke to Dr. Brizuela 09/20, they are unable to place GJ tube until Plavix has been off for 5 days. D/W Dr. eLon, patient has stent and he is unsure if plavix can be held, as per Dr. Cummins, the patient will need to remain on Plavix and ASA to avoid occlusion of stent. Spoke to Nurse Consuelo, who will check with Dr. Cummins re: plavix and will notify us to let us know if this can be held. If not, will d/w Dr. Barahona to see the possibility of placing G tube on Plavix and possibly having IR later convert to G/J tube if unable to tolerate the TF. - High gastric output with gaseous distention of stomach on CT. Abdomen/Pelvis CT (09/15/16)----> 1. Gaseous distension of the stomach. 2. I do not see evidence for significant colitis. Abdomen X-Ray (09/17/16)--- > Nonspecific abdomen appearance. - Acute ischemic left MCA, ARF, CHF, CAD, HTN, CKD per CCM PLAN: - TF as tolerated - Notify GI if Plavix is able to be held for G/J tube placement - If unable, ? placing PEG while on Plavix and later having IR convert to G/J tube if needed - Further recommendations to follow based on results of above - Pt seen and examined by Dr. Barahona and myself and this note is written on his behalf Elidia Black Sep 21, 2016 10:31
[2016-09-21 10:54] LABS: CKMB 1.8 NG/ML (0.5-3.6)
[2016-09-21] MEDS: ACETAMINOPHEN 1000 MG/100 ML VIAL IV PRN (16:47)
--- NOTE | 2016-09-21 17:04 | HHI.HCPN ---
Reason for visit a. To assist with evaluation and management of symptoms including: shortness of breath and debility. b. To assist medical decision maker(s) with: better understanding of current medical conditions; weighing benefits/burdens of medical treatment options; making medical treatment decisions. . Subjective/Interval History Patient seen in ICU. He remains in critical condition -intubated, sedated on mechanical ventilation. Nonpurposeful movement noted to bilateral upper extremities. Not opening eyes to voice or tactile stimuli. Not following any commands. Eyes open at times but not tracking. Patient underwent hemodialysis yesterday, 3.5 L out. BUN/creatinine today 74/10.96. Nephrology -Dr. Naidu following. Ongoing hemodialysis today with goal of 3 L out. Max temperature 100.2 today. WBC continue trending down, today 17.3 from 19.4 yesterday. ID - Dr. Mini Rain following. Plan for GJ-tube, however on hold secondary to Plavix use. Not tolerating tube feeds secondary to high residuals. Laboratory today WBC 17.3, Hgb 10.6, pl 271. Na 137, K 3.5. Liver enzymes remain elevated but trending down, AST 196, ALT 419, alkaline phosphatase 124. Case discussed with bedside RN. Dr. Urena spoke with patient's son earlier this morning. No family at bedside during my visits today. Telephone call to patient's son Sedrick and left message on voiceLabfolder[employer]. Palliative care will continue to follow-up for further clarifications of goals of care in the setting of multisystem organ failure with very poor prognosis. Would likely need trach decision by the end of this week. . Family/friend interactions See interval note. Advance Directives Advance Directive Specifics Health Care Surrogate(s): Son Sedrick not sure if patient has completed advance directives. As per [place] statute, healthcare decision-making falls to patient's 3 children. . Documented care wishes: Unclear at this time if advance directives have been completed. . Significant change in goals: Goals remain unchanged. Full code, continue aggressive care. . Objective Vital Signs Date Time Temp Pulse Resp B/P Pulse Ox O2 Delivery O2 Flow Rate FiO2 09/21/16 15:48 91 40 09/21/16 14:00 94 40 09/21/16 14:00 99 09/21/16 12:00 40 09/21/16 12:00 99.8 99 24 127/66 91 09/21/16 12:00 99 09/21/16 10:00 98 09/21/16 08:00 40 09/21/16 08:00 100.2 91 22 113/76 96 09/21/16 08:00 91 09/21/16 08:00 95 09/21/16 07:52 93 40 09/21/16 07:50 40 09/21/16 06:00 95 09/21/16 04:03 97 40 09/21/16 04:00 99.2 94 18 110/68 97 09/21/16 04:00 40 09/21/16 04:00 94 09/21/16 02:00 96 09/21/16 01:08 95 40 09/21/16 00:00 96 09/21/16 00:00 40 09/21/16 00:00 99.3 96 18 121/66 90 09/20/16 22:11 95 40 09/20/16 22:00 96 09/20/16 20:00 102 09/20/16 20:00 40 09/20/16 20:00 100.0 102 18 116/67 94 09/20/16 19:36 94 40 09/20/16 18:00 101 09/20/16 17:50 95 40 09/20/16 17:05 93 40 Intake & Output 09/21/16 09/21/16 07:00 19:00 Intake Total 1107 ml 643 ml Output Total 155 ml 250 ml Balance 952 ml 393 ml Intake Oral 0 ml IV Total 662 ml 440 ml Tube Feeding 325 ml 103 ml Tube Irrigant 100 ml Other 120 ml Output Urine Total 5 ml 50 ml Stool Total 150 ml 200 ml Physical Exam CONSTITUTIONAL/GENERAL: This is an adequately nourished patient in no acute distress. Sedated, intubated on mechanical ventilation. TUBES/LINES/DRAINS: PIV's, SCDs, Guillen catheter, right IJ dialysis catheter. ETT , NG tube to right nare. SKIN: No jaundice, rashes, or lesions. No wounds seen anteriorly. Not diaphoretic. Dry skin. HEAD: Atraumatic. Normocephalic. ENT: Unable to evaluate hearing secondary to clinical condition.. Nose without bleeding or purulent drainage.EET in place. NECK: Trachea midline. Supple. CARDIOVASCULAR: irregular rate and rhythm. RESPIRATORY/CHEST: Symmetric, unlabored. coarse breath sounds anteriorly. Intubated on mechanical ventilation. GASTROINTESTINAL: Abdomen soft, large, round. Bowel sounds hypoactive. GENITOURINARY: Without palpable bladder distension. Guillen catheter in place. MUSCULOSKELETAL: Extremities without clubbing, cyanosis. NEUROLOGICAL: Unresponsive to tactile or verbal stimuli. Not following any commands. PSYCHIATRIC: Unable to assess secondary to clinical condition. Appears calm. . Diagnostic Tests Laboratory Laboratory Tests Test 09/19/16 09/20/16 09/21/16 09/21/16 04:00 04:15 04:00 09:30 White Blood Count 25.0 TH/MM3 19.4 TH/MM3 17.3 TH/MM3 (4.0-11.0) (4.0-11.0) (4.0-11.0) Red Blood Count 3.77 MIL/MM3 3.52 MIL/MM3 3.50 MIL/MM3 (4.50-5.90) (4.50-5.90) (4.50-5.90) Hemoglobin 11.0 GM/DL 11.0 GM/DL 10.6 GM/DL (13.0-17.0) (13.0-17.0) (13.0-17.0) Hematocrit 33.9 % 31.3 % 31.0 % (39.0-51.0) (39.0-51.0) (39.0-51.0) Mean Corpuscular Volume 89.8 FL 88.8 FL 88.6 FL (80.0-100.0) (80.0-100.0) (80.0-100.0) Mean Corpuscular Hemoglobin 29.3 PG 31.1 PG 30.2 PG (27.0-34.0) (27.0-34.0) (27.0-34.0) Mean Corpuscular Hemoglobin 32.6 % 35.0 % 34.1 % Concent (32.0-36.0) (32.0-36.0) (32.0-36.0) Red Cell Distribution Width 15.3 % 15.6 % 15.2 % (11.6-17.2) (11.6-17.2) (11.6-17.2) Platelet Count 269 TH/MM3 281 TH/MM3 271 TH/MM3 (150-450) (150-450) (150-450) Mean Platelet Volume 9.5 FL 9.3 FL 9.3 FL (7.0-11.0) (7.0-11.0) (7.0-11.0) Neutrophils (%) (Auto) 85.5 % 80.8 % 76.1 % (16.0-70.0) (16.0-70.0) (16.0-70.0) Lymphocytes (%) (Auto) 3.3 % 4.7 % 5.8 % (9.0-44.0) (9.0-44.0) (9.0-44.0) Monocytes (%) (Auto) 10.1 % 13.2 % 16.2 % (0.0-8.0) (0.0-8.0) (0.0-8.0) Eosinophils (%) (Auto) 0.9 % (0.0-4.0) 1.0 % (0.0-4.0) 1.4 % (0.0-4.0) Basophils (%) (Auto) 0.2 % (0.0-2.0) 0.3 % (0.0-2.0) 0.5 % (0.0-2.0) Neutrophils # (Auto) 21.4 TH/MM3 15.7 TH/MM3 13.1 TH/MM3 (1.8-7.7) (1.8-7.7) (1.8-7.7) Lymphocytes # (Auto) 0.8 TH/MM3 0.9 TH/MM3 1.0 TH/MM3 (1.0-4.8) (1.0-4.8) (1.0-4.8) Monocytes # (Auto) 2.5 TH/MM3 2.6 TH/MM3 2.8 TH/MM3 (0-0.9) (0-0.9) (0-0.9) Eosinophils # (Auto) 0.2 TH/MM3 0.2 TH/MM3 0.2 TH/MM3 (0-0.4) (0-0.4) (0-0.4) Basophils # (Auto) 0.1 TH/MM3 0.1 TH/MM3 0.1 TH/MM3 (0-0.2) (0-0.2) (0-0.2) CBC Comment AUTO DIFF AUTO DIFF AUTO DIFF Differential Total Cells 100 100 100 Counted Neutrophils % (Manual) 87 % (16-70) 79 % (16-70) 62 % (16-70) Band Neutrophils % 2 % (0-6) 1 % (0-6) 12 % (0-6) Lymphocytes % 4 % (9-44) 7 % (9-44) 8 % (9-44) Monocytes % 6 % (0-8) 12 % (0-8) 16 % (0-8) Basophils % 1 % (0-2) 1 % (0-2) Neutrophils # (Manual) 22.3 TH/MM3 15.5 TH/MM3 12.8 TH/MM3 (1.8-7.7) (1.8-7.7) (1.8-7.7) Differential Comment FINAL DIFF FINAL DIFF FINAL DIFF MANUAL MANUAL MANUAL Platelet Estimate NORMAL NORMAL NORMAL (NORMAL) (NORMAL) (NORMAL) Platelet Morphology Comment NORMAL NORMAL NORMAL (NORMAL) (NORMAL) (NORMAL) Red Cell Morphology Comment NORMAL NORMAL (NORMAL) (NORMAL) Sodium Level 136 MEQ/L 135 MEQ/L 137 MEQ/L (136-145) (136-145) (136-145) Potassium Level 3.9 MEQ/L 3.7 MEQ/L 3.5 MEQ/L (3.5-5.1) (3.5-5.1) (3.5-5.1) Chloride Level 95 MEQ/L 94 MEQ/L 96 MEQ/L (98-107) (98-107) (98-107) Carbon Dioxide Level 20.6 MEQ/L 19.3 MEQ/L 24.4 MEQ/L (21.0-32.0) (21.0-32.0) (21.0-32.0) Anion Gap 20 MEQ/L (5-15) 22 MEQ/L (5-15) 17 MEQ/L (5-15) Blood Urea Nitrogen 85 MG/DL (7-18) 107 MG/DL 74 MG/DL (7-18) (7-18) Creatinine 12.19 MG/DL 14.48 MG/DL 10.96 MG/DL (0.60-1.30) (0.60-1.30) (0.60-1.30) Estimat Glomerular Filtration 4 ML/MIN (>89) 3 ML/MIN (>89) 5 ML/MIN (>89) Rate Random Glucose 186 MG/DL 164 MG/DL 183 MG/DL (74-106) (74-106) (74-106) Calcium Level 8.9 MG/DL 8.8 MG/DL 8.6 MG/DL (8.5-10.1) (8.5-10.1) (8.5-10.1) Total Bilirubin 0.9 MG/DL 0.8 MG/DL 0.8 MG/DL (0.2-1.0) (0.2-1.0) (0.2-1.0) Aspartate Amino Transf 486 U/L (15-37) 332 U/L (15-37) 196 U/L (15-37) (AST/SGOT) Alanine Aminotransferase 1000 U/L 658 U/L (12-78) 419 U/L (12-78) (ALT/SGPT) (12-78) Alkaline Phosphatase 88 U/L (45-117) 101 U/L 124 U/L (45-117) (45-117) Total Creatine Kinase 1910 U/L 1683 U/L 1104 U/L (39-308) (39-308) (39-308) Creatine Kinase MB 5.8 NG/ML 3.4 NG/ML 1.8 NG/ML (0.5-3.6) (0.5-3.6) (0.5-3.6) Creatine Kinase MB % 0.3 % (0.0-4.0) 0.2 % (0.0-4.0) 0.2 % (0.0-4.0) Total Protein 8.2 GM/DL 8.1 GM/DL 8.7 GM/DL (6.4-8.2) (6.4-8.2) (6.4-8.2) Albumin 3.1 GM/DL 2.9 GM/DL 3.4 GM/DL (3.4-5.0) (3.4-5.0) (3.4-5.0) Eosinophils % 2 % (0-4) Result Diagram: 09/21/16 0400 09/21/16 0400 Microbiology Microbiology Date/Time Procedure Status Source Growth 09/21/16 09:30 Aerobic Blood Culture Received Blood Peripheral Pending 09/21/16 09:30 Anaerobic Blood Culture Received Blood Peripheral Pending 09/21/16 09:40 Aerobic Blood Culture Received Blood Peripheral Pending 09/21/16 09:40 Anaerobic Blood Culture Received Blood Peripheral Pending Imaging Last Impressions Chest X-Ray 09/21/16 0000 Signed Impressions: Service Date/Time: Wednesday, September 21, 2016 07:47 - CONCLUSION: Stable chest without evidence of significant congestion or acute air space disease. Stable satisfactory position and supported devices. Mack Brizuela MD Liver Ultrasound 09/17/16 1030 Signed Impressions: Service Date/Time: Saturday, September 17, 2016 11:01 - CONCLUSION: 1. Minimally complex cyst right mid kidney. 2. Liver mildly enlarged. Cesar Mcfadden MD Abdomen X-Ray 09/17/16 0600 Signed Impressions: Service Date/Time: Saturday, September 17, 2016 05:05 - CONCLUSION: Nonspecific abdomen appearance. Michael Ross MD Head CT 09/15/16 0000 Signed Impressions: Service Date/Time: Thursday, September 15, 2016 10:15 - CONCLUSION: 1. Sizable area of decreased attenuation in the left MCA distribution most consistent with subacute cortical infarct. This there is stable compared to previous MR dated 09/09/16. Sanket Gonzalez MD Central Venous Line 09/15/16 0000 Signed Impressions: Service Date/Time: Thursday, September 15, 2016 00:00 - CONCLUSION: Uncomplicated line placement as above. Wesley Chaudhari MD Abdomen/Pelvis CT 09/15/16 0000 Signed Impressions: Service Date/Time: Thursday, September 15, 2016 17:00 - CONCLUSION: 1. Gaseous distension of the stomach. 2. I do not see evidence for significant colitis. Lowell Gonzalez MD FACR Catheter Placement X-Ray 09/14/16 0000 Signed Impressions: Service Date/Time: Wednesday, September 14, 2016 00:00 - CONCLUSION: Uncomplicated line placement as above. Wesley Chaudhari MD Carotid Artery Ultrasound 09/13/16 0000 Signed Impressions: Service Date/Time: Tuesday, September 13, 2016 16:46 - CONCLUSION: Significant plaque remains evident in the carotid bifurcations. Poor visualization and difficulty velocity sampling of the proximal internal carotid arteries was again encountered. Significant carotid stenosis cannot be excluded. Nonvisualization of the vertebral arteries. Mack Brizuela MD Brain MRI 09/09/16 0000 Signed Impressions: Service Date/Time: August 16:36 - CONCLUSION: 1. Findings demonstrate an acute infarction in the left sylvian region, nonhemorrhagic. 2. Small air-fluid level right maxillary sinus and mild bilateral ethmoid sinus disease. Suresh Diaz MD Renal Ultrasound 09/08/16 0000 Signed Impressions: Service Date/Time: Thursday, September 08, 2016 16:04 - CONCLUSION: Large 6.3 cm cyst lower pole laterally left kidney. No evidence of hydronephrosis or obstructive uropathy.. Christian Cooper MD Procedures * 09/15/06 -intubation * 09/14/16 -dialysis catheter placement . * 09/11/16 -extubation. * 09/10/16 -intubation. * 09/07/16 -cardiac catheter with angioplasty and stent placement. . Assessment and Plan Disease Oriented Problem List: (1) Acute tubular necrosis (2) Acute ischemic left MCA stroke (3) CAD (coronary artery disease) of bypass graft (4) CHF (congestive heart failure), NYHA class II (5) Liver function failure Symptom Scale: (1) Shortness of breath 0-10 Scale: Unable to quantify Comment: Reintubated 09/15/06. On mechanical ventilation. (2) Debility 0-10 Scale: Unable to quantify Comment: Secondary to CVA, acute complications, hospitalization. Pertinent Non-Medical Issues Psychosocial: . Has 2 children. Living independently prior to this hospitalization. Spiritual: Zoroastrian. Legal: Unknown if advance directives have been completed. Ethical issues impacting care: Unknown if advance directives have been completed. . Important Contacts Max Birmingham [phone]. Son Vaibhav . Daughter Yani. . Prognosis Mr. Ferguson is a 66 y/o male with an adhesive significant cardiac history to include stenting in 2010, CAD status post 6 vessel CABG in 2011, and angioplasty and stenting in September 06. He was found to have significant blockage requiring angioplasty and stenting. 2 of 6 grafts are currently patent. Post cardiac catheter, patient developed aphasia and right sided hemiparesis. MRI of the brain showing acute nonhemorrhagic infarct. Patient was intubated and subsequently extubated secondary to respiratory failure and altered mental status. Vertical condition remains the same, he is obtunded and not following any commands. Patient with history of CKD now with acute tubular necrosis requiring renal replacement therapy. His prognosis is poor for a meaningful neurological recovery even if he is to survive this hospitalization given his age, severity of cardiac disease, complications to include stroke, and multiple comorbidities. He is at a very high risk for further decline, complications and . . Code Status: Full Code Plan * CODE STATUS: Full code. Risks, benefits and limitations of CPR, intubation and mechanical ventilation readdressed with patient's son on 09/16/16 given patient's worsening clinical condition. Encouraged to discuss further with family. * MEDICAL DECISION-MAKING: Patient incapacitated to make healthcare decisions secondary to clinical condition, unclear if he will regain. Son Sedrick not sure if patient has completed advance directives. As per [place] statute, healthcare decision-making falls to patient's 3 children. * GOALS OF CARE: 09/21/16 -Continue aggressive care. Pending f/u with family for further clarification of goals of care to include tracheostomy decision. Dr. Urena spoke with patient's son earlier this morning. No family at bedside during my visits today. Telephone call to patient's son Sedrick and left message on voicemail. Palliative care will continue to follow-up for further clarifications of goals of care in the setting of multisystem organ failure with very poor prognosis. Would likely need trach decision by the end of this week. * SYMPTOMS: == Shortness of breath, patient recently intubated and extubated. Worsening clinical condition. Reintubated 09/15/16, remains on mechanical ventilation. == Debility, secondary to CVA, acute events and hospitalization. = = Anxiety, patient appears calm. * Case discussed with Dr. Urena and bedside RN. * Palliative care contact information has been provided to patient's family. * Palliative care will continue to follow-up to assist with symptom management and to further evaluate goals of care as the clinical course evolves. . Time Spent Total Floor Time (mins): 28 (Total time to include review of medical records, physical exam, at times telephone call communication with patient's son and case discussion with bedside RN) >50% Counseling/Coord of Care: Yes Attestation To help prompt me to consider important information that might be impacting today's encounter and assessment, information from prior notes written by myself or my colleagues may have been "brought forward" into today's note. My signature on this note, however, is an attestation that I personally performed the exam, history, and/or decision-making noted today, and, unless otherwise indicated, the interactions with patient, family, and staff as well as the review of records all occurred today. I also attest that the listed assessment and stated plan reflect my best clinical judgment today based on the combination of historical information, prior notes, and today's exam/ interactions. When time spent is documented, it refers only to time spent today by the signer, or if indicated, combined time spent today by collaborating physician/nurse practitioner. Simran Sorto Sep 21, 2016 17:04
[2016-09-21] MEDS ORDERED: CEFTOLOZANE-TAZOBACTAM INJ 1,500 MG in SODIUM CHLORIDE 0.9% INJ 100 ML IV SCH (19:30)
--- NOTE | 2016-09-21 19:50 | HHI.IDPN ---
Subjective Subjective Remarks Mr. Ferguson is a 66 y/o male with a medical history of CAD status post 6 vessel CABG in 2011, CHF, CAD, hypertension, diabetes mellitus type 2, obesity, and sleep apnea. On 09/07/16, patient underwent cardiac catheterization , he was found to have significant blockage requiring angioplasty and stenting. Post cardiac catheter, patient developed aphasia and right sided hemiparesis. CT of the brain show no acute process. Neurology -Dr. Nguyen consulted. Brain MRI obtained on 09/09/16 showing acute nonhemorrhagic infarction in the left sylvian region. Patient developed respiratory distress and was placed on BiPAP , subsequently intubated and placed on mechanical ventilation. developed ARF, on HD Patient was being treated for aspiration Pneumonia. Intubated September 15 Started on HD Sep 14 Infectious disease following for septic shock, aspiration Pneumonia, confirmed C. difficile colitis. Delayed entry patient seen at 9:30 am ~. Notes reviewed Has low grade temps Off pressors Having HD Has liquid stool CT with no colitis. Abnormal LFTs trending down WBC decreasing BC negative Has RIJ TLC and vascath Sputum 09/17 with Pseudomonas Antibiotics Meropenem IV Vanco oral. Zyvox IV Lines RIJ TLC and vascath Past Medical History reviewed Allergies: Coded Allergies: No Known Allergies (Verified , 09/07/16) Objective . Vital Signs Date Time Temp Pulse Resp B/P Pulse Ox O2 Delivery O2 Flow Rate FiO2 09/21/16 18:18 100.9 09/21/16 18:00 101 09/21/16 16:00 104 09/21/16 16:00 40 09/21/16 16:00 102.0 104 24 148/72 92 09/21/16 15:48 91 40 09/21/16 14:00 94 40 09/21/16 14:00 99 09/21/16 12:00 40 09/21/16 12:00 99.8 99 24 127/66 91 09/21/16 12:00 99 09/21/16 10:00 98 09/21/16 08:00 40 09/21/16 08:00 100.2 91 22 113/76 96 09/21/16 08:00 91 09/21/16 08:00 95 09/21/16 07:52 93 40 09/21/16 07:50 40 09/21/16 06:00 95 09/21/16 04:03 97 40 09/21/16 04:00 99.2 94 18 110/68 97 09/21/16 04:00 40 09/21/16 04:00 94 09/21/16 02:00 96 09/21/16 01:08 95 40 09/21/16 00:00 96 09/21/16 00:00 40 09/21/16 00:00 99.3 96 18 121/66 90 09/20/16 22:11 95 40 09/20/16 22:00 96 09/20/16 20:00 102 09/20/16 20:00 40 09/20/16 20:00 100.0 102 18 116/67 94 09/20/16 09/20/16 09/21/16 15:00 23:00 07:00 Intake Total 320 ml 617 ml 490 ml Output Total 3700 ml 105 ml 50 ml Balance -3380 ml 512 ml 440 ml Intake Oral 0 ml 0 ml IV Total 320 ml 367 ml 295 ml Tube Feeding 190 ml 135 ml Other 60 ml 60 ml Output Urine Total 0 ml 5 ml 0 ml Stool Total 200 ml 100 ml 50 ml Hemodialysis 3500 ml . Laboratory Tests Test 09/20/16 09/21/16 04:15 04:00 White Blood Count 19.4 TH/MM3 17.3 TH/MM3 Red Blood Count 3.52 MIL/MM3 3.50 MIL/MM3 Hemoglobin 11.0 GM/DL 10.6 GM/DL Hematocrit 31.3 % 31.0 % Mean Corpuscular Volume 88.8 FL 88.6 FL Mean Corpuscular Hemoglobin 31.1 PG 30.2 PG Mean Corpuscular Hemoglobin 35.0 % 34.1 % Concent Red Cell Distribution Width 15.6 % 15.2 % Platelet Count 281 TH/MM3 271 TH/MM3 Mean Platelet Volume 9.3 FL 9.3 FL Neutrophils (%) (Auto) 80.8 % 76.1 % Lymphocytes (%) (Auto) 4.7 % 5.8 % Monocytes (%) (Auto) 13.2 % 16.2 % Eosinophils (%) (Auto) 1.0 % 1.4 % Basophils (%) (Auto) 0.3 % 0.5 % Neutrophils # (Auto) 15.7 TH/MM3 13.1 TH/MM3 Lymphocytes # (Auto) 0.9 TH/MM3 1.0 TH/MM3 Monocytes # (Auto) 2.6 TH/MM3 2.8 TH/MM3 Eosinophils # (Auto) 0.2 TH/MM3 0.2 TH/MM3 Basophils # (Auto) 0.1 TH/MM3 0.1 TH/MM3 CBC Comment AUTO DIFF AUTO DIFF Differential Total Cells 100 100 Counted Neutrophils % (Manual) 79 % 62 % Band Neutrophils % 1 % 12 % Lymphocytes % 7 % 8 % Monocytes % 12 % 16 % Basophils % 1 % Neutrophils # (Manual) 15.5 TH/MM3 12.8 TH/MM3 Differential Comment FINAL DIFF FINAL DIFF MANUAL MANUAL Platelet Estimate NORMAL NORMAL Platelet Morphology Comment NORMAL NORMAL Red Cell Morphology Comment NORMAL Eosinophils % 2 % Laboratory Tests Test 09/20/16 09/21/16 09/21/16 04:15 04:00 09:30 Sodium Level 135 MEQ/L 137 MEQ/L Potassium Level 3.7 MEQ/L 3.5 MEQ/L Chloride Level 94 MEQ/L 96 MEQ/L Carbon Dioxide Level 19.3 MEQ/L 24.4 MEQ/L Anion Gap 22 MEQ/L 17 MEQ/L Blood Urea Nitrogen 107 MG/DL 74 MG/DL Creatinine 14.48 MG/DL 10.96 MG/DL Estimat Glomerular Filtration 3 ML/MIN 5 ML/MIN Rate Random Glucose 164 MG/DL 183 MG/DL Calcium Level 8.8 MG/DL 8.6 MG/DL Total Bilirubin 0.8 MG/DL 0.8 MG/DL Aspartate Amino Transf 332 U/L 196 U/L (AST/SGOT) Alanine Aminotransferase 658 U/L 419 U/L (ALT/SGPT) Alkaline Phosphatase 101 U/L 124 U/L Total Creatine Kinase 1683 U/L 1104 U/L Creatine Kinase MB 3.4 NG/ML 1.8 NG/ML Creatine Kinase MB % 0.2 % 0.2 % Total Protein 8.1 GM/DL 8.7 GM/DL Albumin 2.9 GM/DL 3.4 GM/DL Microbiology Date/Time Procedure Status Source Growth 09/21/16 09:30 Aerobic Blood Culture Received Blood Peripheral Pending 09/21/16 09:30 Anaerobic Blood Culture Received Blood Peripheral Pending 09/21/16 09:40 Aerobic Blood Culture Received Blood Peripheral Pending 09/21/16 09:40 Anaerobic Blood Culture Received Blood Peripheral Pending Imaging Liver Ultrasound 09/17/16 1030 Signed Impressions: Service Date/Time: Saturday, September 17, 2016 11:01 - CONCLUSION: 1. Minimally complex cyst right mid kidney. 2. Liver mildly enlarged. Cesar Mcfadden MD Abdomen X-Ray 09/17/16 0600 Signed Impressions: Service Date/Time: Saturday, September 17, 2016 05:05 - CONCLUSION: Nonspecific abdomen appearance. Michael Ross MD Chest X-Ray 09/15/16 1621 Signed Impressions: Service Date/Time: Thursday, September 15, 2016 16:33 - CONCLUSION: 1. Uncomplicated line placement. No evidence of pneumothorax. Wesley Chaudhari MD Head CT 09/15/16 0000 Signed Impressions: Service Date/Time: Thursday, September 15, 2016 10:15 - CONCLUSION: 1. Sizable area of decreased attenuation in the left MCA distribution most consistent with subacute cortical infarct. This there is stable compared to previous MR dated 09/09/16. Sanket Gonzalez MD Central Venous Line 09/15/16 0000 Signed Impressions: Service Date/Time: Thursday, September 15, 2016 00:00 - CONCLUSION: Uncomplicated line placement as above. Wesley Chaudhari MD Abdomen/Pelvis CT 09/15/16 0000 Signed Impressions: Service Date/Time: Thursday, September 15, 2016 17:00 - CONCLUSION: 1. Gaseous distension of the stomach. 2. I do not see evidence for significant colitis. Lowell Gonzalez MD FACR Catheter Placement X-Ray 09/14/16 0000 Signed Impressions: Service Date/Time: Wednesday, September 14, 2016 00:00 - CONCLUSION: Uncomplicated line placement as above. Wesley Chaudhari MD Carotid Artery Ultrasound 09/13/16 0000 Signed Impressions: Service Date/Time: Tuesday, September 13, 2016 16:46 - CONCLUSION: Significant plaque remains evident in the carotid bifurcations. Poor visualization and difficulty velocity sampling of the proximal internal carotid arteries was again encountered. Significant carotid stenosis cannot be excluded. Nonvisualization of the vertebral arteries. Mack Brizuela MD Brain MRI 09/09/16 0000 Signed Impressions: Service Date/Time: August 16:36 - CONCLUSION: 1. Findings demonstrate an acute infarction in the left sylvian region, nonhemorrhagic. 2. Small air-fluid level right maxillary sinus and mild bilateral ethmoid sinus disease. Suresh Diaz MD Renal Ultrasound 09/08/16 0000 Signed Impressions: Service Date/Time: Thursday, September 08, 2016 16:04 - CONCLUSION: Large 6.3 cm cyst lower pole laterally left kidney. No evidence of hydronephrosis or obstructive uropathy.. Christian Cooper MD Physical Exam GENERAL: Obese male patient, sedated, on the vent. SKIN: No rashes, ecchymoses or lesions. Cool and dry. HEAD: Atraumatic. Normocephalic. No temporal or scalp tenderness. EYES: Pupils equal round and reactive. No scleral icterus. No injection or drainage. ENT: Intubated. Oral mucosae moist NECK: Trachea midline. Supple, nontender, no meningeal signs. Line in neck looks ok CARDIOVASCULAR: Heart sounds audible. RESPIRATORY: Clear to auscultation. Breath sounds equal bilaterally. GASTROINTESTINAL: Abdomen soft, non-tender, nondistended. MUSCULOSKELETAL: Extremities without clubbing, cyanosis, or edema. NEUROLOGICAL: Sedated Psych can not be assessed IV line sites with no evidence of infection. : Guillen in place Assessment & Plan Remarks IMPRESSION Septic shock with multiorgan dysfunction syndrome Aspiration Pneumonia - C/S prelim Pseudomonas Clostridium diff colitis Acute resp failure on vent. Acute metabolic encephalopathy: stroke, sepsis, metabolic. Acute renal failure: meds, sepsis, ATN on HD now. CAD, NE Acute stroke Recs Continue Vanco oral for Cdiff Continue Meropenem IV (ASP: worsening sepsis on Zosyn IV) Continue Zyvox IV (possible MRSA pneumonia will deescalate based on sputum cultures) for now, will dc if no MRSA in final sputum CXR tomorrow Follow C/S Monitor progress Abx will be adjusted once C/S finalized At time of my review of chart PSAE was reported as MDR at 7:46 pm Vitals reveal high grade fevers, BCX resent. Continue Zyvox IV for now. DC Meropenem as I on susceptibility Patient had fevers on Zosyn IV and was switched to Meropenem earlier this week. aztreonam cannot be used due to high transaminases. High CK noted cannot use Daptomycin. Start Zerbaxa IV (will request micro susceptibility in am and reassess clinically) Urine eosinophils. Diflucan IV for possible new CLABSI. Contact/Droplet isolation per hospital policy for MDR PSAE. Era Becker MD Sep 21, 2016 19:50
[2016-09-21] MEDS: RESP: TOBRAMYCIN SULFATE 300 MG/5 ML NEB NEB SCH (20:00)
[2016-09-21] MEDS: FLUCONAZOLE 400 MG PREMIX BAG 200 ML IV SCH (20:48)
[2016-09-21] MEDS: fentaNYL DRIP 250 ML IV SCH (20:51)
[2016-09-21] MEDS ORDERED: CEFTOLOZANE TAZOBACTAM IV ONE ×2 (21:00)
[2016-09-21] MEDS ORDERED: NS IV ONE ×2 (21:00)
[2016-09-22] VITALS (18 sets, daily range): BP systolic 100–133; BP diastolic 57–74; PULSE 90–100; RESP 18–28; TEMP 99.8–101.8; O2SAT 93–100
[2016-09-22] MEDS: INSULIN NovoLIN REGULAR SUPPLEMENTAL SCALE SQ SCH ×6 (01:00→20:40)
[2016-09-22] MEDS: LINEZOLID 600 MG PREMIX 300 ML IV SCH ×2 (03:48→15:47)
[2016-09-22] MEDS: TAZOBACTAM IV SCH ×6 (03:48→20:34)
[2016-09-22] MEDS: SODIUM CHLORIDE IV SCH ×6 (03:48→20:34)
[2016-09-22] MEDS: CHLORHEXIDINE GLUCONATE 2 % 1 PACK (2 CLOTHS) TOP SCH (03:48)
[2016-09-22] MEDS: CEFTOLOZANE IV SCH ×6 (03:48→20:34)
[2016-09-22 04:36] LABS: AUTOMATED NEUTROPHIL # 13.2 TH/MM3 (1.8-7.7); BASOPHIL % 0.2 % (0.0-2.0); EOSINOPHIL # 0.3 TH/MM3 (0-0.4); EOSINOPHIL % 1.7 % (0.0-4.0); HEMATOCRIT 32.2 % (39.0-51.0); LYMPH % 6.7 % (9.0-44.0); LYMPHOCYTE # 1.2 TH/MM3 (1.0-4.8); MEAN CELL VOLUME 89.6 FL (80.0-100.0); MEAN CORPUSCULAR HEMOGLOBIN 29.5 PG (27.0-34.0); NEUT % 74.4 % (16.0-70.0); PLATELET COUNT 283 TH/MM3 (150-450); RED BLOOD COUNT 3.59 MIL/MM3 (4.50-5.90); RED CELL DISTRIBUTION WIDTH 15.3 % (11.6-17.2); WHITE BLOOD COUNT 17.8 TH/MM3 (4.0-11.0)
[2016-09-22 04:46] LABS: ALKALINE PHOSPHATASE 112 U/L (45-117); ALT (GPT) 251 U/L (12-78); ANION GAP 20 MEQ/L (5-15); AST (GOT) 96 U/L (15-37); BICARBONATE 21.9 MEQ/L (21.0-32.0); BLOOD UREA NITROGEN 92 MG/DL (7-18); CHLORIDE 96 MEQ/L (98-107); CREATINE KINASE 625 U/L (39-308); GLOMERULAR FILTRATION RATE 4 ML/MIN (>89); POTASSIUM 3.5 MEQ/L (3.5-5.1); SODIUM (NA) 138 MEQ/L (136-145); TOTAL BILIRUBIN ADULT 0.7 MG/DL (0.2-1.0)
[2016-09-22 04:55] LABS: HEMO FLAGS AUTO DIFF
[2016-09-22 05:23] LABS: CKMB 1.3 NG/ML (0.5-3.6)
[2016-09-22 07:14] LABS: SCAN/DIFF AUTO DIFF CONFIRMED
--- NOTE | 2016-09-22 08:04 | HHI.CCPN ---
Subjective Remarks/Hospital Course 66-year-old gentleman with a history of coronary artery disease status post CABG underwent emergent cardiac catheterization by Dr. Cummins. Postprocedure his course is complicated by aphasia and right-sided weakness. 09/08 Patient was on BIPAP 14/7 with FIO2 25%. On Precedex and heparin drips. CT brain showed last night showed no acute process. Impela was removed this morning by Dr. Cummins. T:99.9 Renal function improving with Cr:2.5 from 3.0 hyperkalemic with K 6.1 09/09: Overnight remained on BiPAP predominantly for sleep apnea. Intermittently follows commands. Will check MRI of the brain today. Creatinine slightly worsened to 2.8. Consulted nephrology, hyperkalemia resolved 09/10: Remains on BiPAP, some interval worsening of respiratory status. Patient is more tachypneic chest x-ray shows left lower lobe infiltrate .Currently sedated with 0.5 g per KG per hour of Precedex. I will discontinue Precedex. MRI brain shows acute infarct left sylvian region. Creatinine slightly worse at 3. Low-grade fever Tmax 100.2, send blood and sputum culture and start Zosyn 09/11: Patient was intubated yesterday for progressively worsening respiratory failure, hypoxemia and altered mentation. On ventilator support patient's oxygenation has improved. He moves all extremities do not following commands. Chest x-ray shows no definite infiltrates 09/12: Extubated yesterday tolerating well oxygenation varghese and protecting airway. No fevers. Urine output 3.8 L in 24 hours with creatinine worsening from 3.9 to 4.5 today. Remains aphasic not following commands 09/13: Somnolent, received Ativan for agitation overnight. Urine output 4 L in 24 hours. Labs are pending at this time. Opens eyes to verbal stimulation, remains aphasic and did not follow commands 09/14 Patient appears somnolent. On no sedation. Renal function worse today with Cr: 7.31 from 5.40 and UO: 715ml in 24hrs. T:100.9 this morning. Remains aphasic. 09/15 Patient was placed on Amio drip overnight for Afib with RVR. HD initiated yesterday with removal 2L. He is currently receiving another HD treatment. Tmax 100.9. Patient remains encephalopathic and does not follow commands. TF was held due to high residuals. 09/16 Patient was intubated yesterday for airway protection. On Fentanyl drip for sedation on Neosyn. Tmax 104. C-diff PCR positive. CT abd/pelvis showed no acute process, gaseous distention. 09/17 Patient remains intubated and sedated with Fentanyl. On Neosyn 75 mics. T: 101.8 at 4 am. 09/18 Patient remains sedated and intubated. T:101.1 last night. On Neosyn 60 mics. 09/19 No acute events overnight. Off Neosyn and is on Fentanyl infusion for sedation. T:100.5. Tolerated CPAP x 4 hrs yesterday. Patient was able to open up his eyes off sedation. 09/20 Patient remains sedated with Fentanyl and intubated. T:99.8 last night. WBC trending down. Off Neosyn. For J-tube placement by IR today. 09/21 Patient remains sedated and intubated. T:100.0 last night. s/p HD yesterday with removal 3.5L. 09/22-continues to have low-grade fever. On sedation hold open size moves all extremities do not follow commands. White count stable at 17.8 Objective Vital Signs Date Time Temp Pulse Resp B/P Pulse Ox O2 Delivery O2 Flow Rate FiO2 09/22/16 06:00 100 09/22/16 04:17 94 40 09/22/16 04:00 99.9 18 108/71 Intake and Output 09/21/16 09/21/16 09/22/16 08:00 16:00 00:00 Intake Total 490 ml 643 ml 955 ml Output Total 50 ml 250 ml 110 ml Balance 440 ml 393 ml 845 ml Result Diagram: 09/22/16 0410 09/22/16 0410 Imaging Last Impressions Liver Ultrasound 09/17/16 1030 Signed Impressions: Service Date/Time: Saturday, September 17, 2016 11:01 - CONCLUSION: 1. Minimally complex cyst right mid kidney. 2. Liver mildly enlarged. Cesar Mcafdden MD Abdomen X-Ray 09/17/16 0600 Signed Impressions: Service Date/Time: Saturday, September 17, 2016 05:05 - CONCLUSION: Nonspecific abdomen appearance. Michael Ross MD Chest X-Ray 09/15/16 1621 Signed Impressions: Service Date/Time: Thursday, September 15, 2016 16:33 - CONCLUSION: 1. Uncomplicated line placement. No evidence of pneumothorax. Wesley Chaudhari MD Head CT 09/15/16 0000 Signed Impressions: Service Date/Time: Thursday, September 15, 2016 10:15 - CONCLUSION: 1. Sizable area of decreased attenuation in the left MCA distribution most consistent with subacute cortical infarct. This there is stable compared to previous MR dated 09/09/16. Sanket Gonzalez MD Central Venous Line 09/15/16 0000 Signed Impressions: Service Date/Time: Thursday, September 15, 2016 00:00 - CONCLUSION: Uncomplicated line placement as above. Wesley Chaudhari MD Abdomen/Pelvis CT 09/15/16 0000 Signed Impressions: Service Date/Time: Thursday, September 15, 2016 17:00 - CONCLUSION: 1. Gaseous distension of the stomach. 2. I do not see evidence for significant colitis. Lowell Gonzalez MD FACR Catheter Placement X-Ray 09/14/16 0000 Signed Impressions: Service Date/Time: Wednesday, September 14, 2016 00:00 - CONCLUSION: Uncomplicated line placement as above. Wesley Chaudhari MD Carotid Artery Ultrasound 09/13/16 0000 Signed Impressions: Service Date/Time: Tuesday, September 13, 2016 16:46 - CONCLUSION: Significant plaque remains evident in the carotid bifurcations. Poor visualization and difficulty velocity sampling of the proximal internal carotid arteries was again encountered. Significant carotid stenosis cannot be excluded. Nonvisualization of the vertebral arteries. Mack Brizuela MD Brain MRI 09/09/16 0000 Signed Impressions: Service Date/Time: August 16:36 - CONCLUSION: 1. Findings demonstrate an acute infarction in the left sylvian region, nonhemorrhagic. 2. Small air-fluid level right maxillary sinus and mild bilateral ethmoid sinus disease. Suresh Diaz MD Renal Ultrasound 09/08/16 0000 Signed Impressions: Service Date/Time: Thursday, September 08, 2016 16:04 - CONCLUSION: Large 6.3 cm cyst lower pole laterally left kidney. No evidence of hydronephrosis or obstructive uropathy.. Christian Cooper MD Objective Remarks GENERAL: Well-nourished, well-developed patient intubated and sedated SKIN: Warm and dry. HEAD: Normocephalic. EYES: No scleral icterus. No injection or drainage. ENT: Oral cavity moist NECK: Supple, trachea midline. No JVD or lymphadenopathy. Orally intubated CARDIOVASCULAR: Regular rate and rhythm without murmurs, gallops, or rubs. RESPIRATORY: Breath sounds equal bilaterally. No accessory muscle use. GASTROINTESTINAL: Abdomen soft, non-tender, nondistended. MUSCULOSKELETAL: No cyanosis, or edema. BACK: Nontender without obvious deformity. EXTREMITIES: Able to open eyes and moves extremities spontaneously however he does not follow commands or tracks A/P Problem List: (1) Acute ischemic left MCA stroke ICD Code: I63.512 Status: Acute (2) Acute renal failure ICD Code: N17.9 Status: Acute (3) CHF (congestive heart failure), NYHA class III ICD Code: I50.9 Status: Acute (4) Coronary artery disease involving [place] heart ICD Code: I25.10 Status: Chronic (5) HTN (hypertension) ICD Code: I10 Status: Acute (6) CKD (chronic kidney disease) ICD Code: N18.9 Status: Acute Assessment and Plan ASSESSMENT Acute left MCA stroke Aphasia with right hemiparesis Acute respiratory failure Metabolic encephalopathy NSTEMI Known CAD C-diff colitis Obstructive sleep apnea UTI with enterococcus HCAP Acute on chronic kidney disease Hyperkalemia-resolved DM HTN LEONARD Hyperlipidemia Plan Neuro: -On Fentanyl infusion. Monitor neuro status. Ativan PRN for agitation. Daily sedation vacation -MRI brain 09/09/16-acute left sylvian region infarct. CT brain 09/07: No acute disease. -Repeat CT brain 09/15: Sizable area of decreased attenuation in the left MCA distribution most consistent with subacute cortical infarct -Continue aspirin and Plavix. Neuro was following- Cr. Patrick. -09/13 EEG: within normal. Pulm: -Continue with vent support keep sat >92% Check CXR -Bronchodilators, ICU vent bundle, CPAP trials as khris. Mental status will not permit extubation at this time -Most likely need need trach if family desires aggressive care. Re intubated on 09/15/16 -Dr. Leon discussed with patient' daughter Yani regarding need of trach she will discuss it further with her brother Sedrick before making a final decision. Palliative care following CV: -Monitor HR and BP keep MAP>65mmHg -Continue with ASA, Plavix. Imdur and Lopressor on hold due to hypotension -Lipitor held for elevated LFT's -s/p cardiac cath 09/07 showed multivessel disease with 2/6 grafts patent, EF 40% . s/p PCI with stents of the saphenous venous graft to the first diagonal artery. -s/p removal Impella 09/08. Cardiology- Dr. Cummins : -Monitor renal function, I/O's, avoid nephrotoxins. -HD initiated 09/14 , renal-Dr. Naidu. . Monitor CK's ( trending down) GI: -On Protonix 40mg -GI is following -Monitor LFT's ( trending down), Hepatitis profile negative on 09/14 -US Liver: Minimally complex cyst right mid kidney. Liver mildly enlarged. -Continue with TF- Nepro @20ml/hr advance it to goal rate. ID: [email or web address] C-diff colitis Sputum cx: 09/17 Pseudomonas -Continue abx per ID ( PO Vanco, Zerbaxa, Zyvox, IV Diflucan). Monitor for signs of infections ( Fever, WBC) -f/u BC x 2 sets -CT abd/pelvis: Gaseous distention, no acute process -KUB abdomen 09/17- non specific bowel gas pattern Heme: -Monitor CBC Endo: -SSI( Medium) with accuchecks for glycemic control, Levemir 5u Q12 GI prophylaxis - on Protonix 40mg Q12 DVT prophylaxis - SCD, Heparin 5000 units sq very 12 Palliative care is following. Lines: Right Vascth placed 09/14, Right IJ CVP placed 09/15 CCT 30 mins Problem Qualifiers (1) Acute renal failure: Qualified Code: N17.0 - Acute renal failure with tubular necrosis Krishna Rodriguez MD Sep 22, 2016 08:04
[2016-09-22] MEDS: MANNITOL 12.5 GM/50 ML VIAL IV PRN (08:13)
[2016-09-22] MEDS: ALBUMIN HUMAN 25% 25 GM/100 ML BAGP IV PRN (08:14)
[2016-09-22] MEDS: HEPARIN SODIUM - IV 10,000 UNITS/10 ML VIAL PRN (08:14)
[2016-09-22] MEDS: SODIUM CHLOR 0.9% 1000 ML INJ 1,000 ML IV PRN (08:15)
[2016-09-22] MEDS: GENTAMICIN SULFATE (DIALYSIS USE ONLY) 20 MG/2 ML VIAL IV PRN (08:15)
[2016-09-22] MEDS: SODIUM CHLORIDE 0.9% FLUSH 5 ML FLUSH IVF PRN (08:15)
[2016-09-22] MEDS: SODIUM CHLOR 0.9% 1000 ML INJ 1,000 ML IV SCH (08:15)
[2016-09-22] MEDS: ARTIFICIAL TEARS OPTH OINT 3.5 APPLIC/3.5 GM TUBO EACH EYE SCH ×2 (09:00→20:26)
[2016-09-22] MEDS: SODIUM CHLORIDE 0.9% FLUSH 5 ML FLUSH IV FLUSH SCH ×2 (09:04→20:25)
[2016-09-22] MEDS: CLOPIDOGREL 75 MG TAB PO SCH (09:04)
[2016-09-22] MEDS: INSULIN DETEMIR 100 UNITS/ML VIAL SQ SCH ×2 (09:04→20:25)
[2016-09-22] MEDS: VANCOMYCIN 500 MG VIAL (FOR ORAL USE ONLY) PO SCH ×4 (09:05→20:25)
[2016-09-22] MEDS: SENNOSIDES SYRUP 8.8 MG/5 ML CUP PO SCH (09:05)
[2016-09-22] MEDS: SODIUM CHLORIDE 0.9% FLUSH 5 ML FLUSH IVF SCH (09:05)
[2016-09-22] MEDS: DOCUSATE SODIUM 100 MG/10 ML UDC PO SCH ×2 (09:05→20:25)
[2016-09-22] MEDS: ASPIRIN 81 MG CHEW TAB CHEW SCH (09:05)
[2016-09-22] MEDS: CHLORHEXIDINE 0.12% (ORAL KIT) 15 ML CUP MT SCH ×2 (09:06→20:25)
[2016-09-22] MEDS: PANTOPRAZOLE SODIUM 40 MG VIAL IV PUSH SCH ×2 (09:06→20:25)
[2016-09-22] MEDS: HEPARIN SODIUM - SQ 10,000 UNITS/ML VIAL SQ SCH ×2 (09:06→20:26)
[2016-09-22] MEDS: RESP: TOBRAMYCIN SULFATE 300 MG/5 ML NEB NEB SCH ×2 (09:40→19:32)
[2016-09-22] MEDS: RESP: ALBUTEROL 2.5 MG/IPRATROPIUM 0.5 MG NEB (PRN) INH ×2 (09:40→19:32)
--- NOTE | 2016-09-22 11:27 | HHI.HCPN ---
Reason for visit a. To assist with evaluation and management of symptoms including: shortness of breath and debility. b. To assist medical decision maker(s) with: better understanding of current medical conditions; weighing benefits/burdens of medical treatment options; making medical treatment decisions. . Subjective/Interval History Patient seen in ICU. He remains in critical condition -intubated, sedated on mechanical ventilation. Nonpurposeful movement noted to all 4 extremities. Not opening eyes to voice or tactile stimuli. Not following any commands. Patient currently undergoing hemodialysis. BUN/creatinine today 92/13.06. Nephrology -Dr. Naidu following. Continue reporting low-grade fever, Max temperature 100.5. ID -Dr. Mini Rain following. Plan for GJ-tube, however on hold secondary to Plavix use. Tube feedings restarted, currently at 15 mL an hour. Laboratory today WBC 17.8, Hgb 10.6, pl 283. Na 138, K 3.5. Liver enzymes remain elevated but trending down, AST 96, ALT 251, alkaline phosphatase 112. Case discussed with bedside RN. Dr. Urena spoke with patient's family yesterday and encouraged them to discuss goals of care/tracheostomy. Spoke with patient's son Sedrick who agreed for family meeting with 2 other siblings this afternoon at 2 PM. Palliative care to follow-up. . Family/friend interactions 14:25 to 15:10. Family meeting. In attendance patient's sons Vaibhav and Sedrick, daughter Yani, and grandson Louie. Medical update provided. Reviewed patient 's prior state of health to include severe cardiac disease/chronic kidney disease, events leading to this hospitalization and clinical course. Reviewed medical complications to include CVA, acute respiratory failure, acute kidney failure/tubular necrosis, probable aspiration pneumonia and c. diff infection. Reviewed that patient is no longer requiring pressors and that hepatic function has improved but that patient continues to be critically ill requiring intubation, mech ventilation and hemodialysis. Reviewed concerns that even if patient is able to medically extubate, he may not be able to protect his airway secondary to AMS. Reviewed tracheostomy/peg tube placement and continuation of HD. Reviewed that is very likely that patient may require long-term HD given his history of CKD and acute events. Reviewed patient's potential for neuro recovery but unclear at this time to what level. Unlike to return to independent living given his clinical status and acute events. Reviewed aggressive care vs. comfort-directed care. Reviewed likelihood of LTAC vs long- term SNF placement. Reviewed patient's previously stated wishes to his PCP regarding electing DNR status. All questions were answered in great detail. Encouraged family to continue asking questions to attending and consulting physicians. Family requesting additional time to discuss/decide goals of care to include trach/peg, medical management, and code status. . Advance Directives Advance Directive Specifics Health Care Surrogate(s): Max Dubose not sure if patient has completed advance directives. As per [place] statute, healthcare decision-making falls to patient's 3 children. . Documented care wishes: Unclear at this time if advance directives have been completed. . Significant change in goals: FULL CODE. Continue current medical management. Family considering all options for treatment to include trach/peg. . Objective Vital Signs Date Time Temp Pulse Resp B/P Pulse Ox O2 Delivery O2 Flow Rate FiO2 09/22/16 10:00 90 09/22/16 09:42 100 40 09/22/16 08:00 100.5 97 24 125/74 93 09/22/16 08:00 97 09/22/16 08:00 40 09/22/16 06:00 100 09/22/16 04:17 94 40 09/22/16 04:00 99.9 96 18 108/71 94 09/22/16 04:00 40 09/22/16 04:00 96 09/22/16 02:00 97 09/22/16 01:24 96 40 09/22/16 00:00 40 09/22/16 00:00 99.8 93 18 114/62 94 09/22/16 00:00 93 09/21/16 22:23 96 40 09/21/16 22:00 94 09/21/16 20:00 100.4 101 18 98/64 94 09/21/16 20:00 101 09/21/16 20:00 40 09/21/16 19:32 95 40 09/21/16 18:18 100.9 09/21/16 18:00 101 09/21/16 16:00 104 09/21/16 16:00 40 09/21/16 16:00 102.0 104 24 148/72 92 09/21/16 15:48 91 40 09/21/16 14:00 94 40 09/21/16 14:00 99 09/21/16 12:00 40 09/21/16 12:00 99.8 99 24 127/66 91 09/21/16 12:00 99 Intake & Output 09/22/16 09/22/16 07:00 19:00 Intake Total 1600 ml Output Total 140 ml 3000 ml Balance 1460 ml -3000 ml Intake Oral 0 ml IV Total 960 ml Tube Feeding 520 ml Other 120 ml Output Urine Total 15 ml Stool Total 125 ml Hemodialysis 3000 ml Physical Exam CONSTITUTIONAL/GENERAL: This is an adequately nourished patient in no acute distress. Sedated, intubated on mechanical ventilation. TUBES/LINES/DRAINS: PIV's, SCDs, Guillen catheter, right IJ dialysis catheter. ETT , OG tube. Rectal tube with moderate amount of watery stool. SKIN: No jaundice, rashes, or lesions. No wounds seen anteriorly. Not diaphoretic. Dry skin. HEAD: Atraumatic. Normocephalic. ENT: Unable to evaluate hearing secondary to clinical condition.. Nose without bleeding or purulent drainage.EET in place. NECK: Trachea midline. Supple. CARDIOVASCULAR: irregular rate and rhythm. RESPIRATORY/CHEST: Symmetric, unlabored. coarse breath sounds anteriorly. Intubated on mechanical ventilation. GASTROINTESTINAL: Abdomen soft, large, round. Bowel sounds hypoactive. GENITOURINARY: Without palpable bladder distension. Guillen catheter in place. MUSCULOSKELETAL: Extremities without clubbing, cyanosis. NEUROLOGICAL: Unresponsive to tactile or verbal stimuli. Not following any commands. Involuntary movement to 4 extremities noted. PSYCHIATRIC: Unable to assess secondary to clinical condition. Appears calm. . Diagnostic Tests Laboratory Laboratory Tests Test 09/20/16 09/21/16 09/21/16 09/22/16 04:15 04:00 09:30 04:10 White Blood Count 19.4 TH/MM3 17.3 TH/MM3 17.8 TH/MM3 (4.0-11.0) (4.0-11.0) (4.0-11.0) Red Blood Count 3.52 MIL/MM3 3.50 MIL/MM3 3.59 MIL/MM3 (4.50-5.90) (4.50-5.90) (4.50-5.90) Hemoglobin 11.0 GM/DL 10.6 GM/DL 10.6 GM/DL (13.0-17.0) (13.0-17.0) (13.0-17.0) Hematocrit 31.3 % 31.0 % 32.2 % (39.0-51.0) (39.0-51.0) (39.0-51.0) Mean Corpuscular Volume 88.8 FL 88.6 FL 89.6 FL (80.0-100.0) (80.0-100.0) (80.0-100.0) Mean Corpuscular Hemoglobin 31.1 PG 30.2 PG 29.5 PG (27.0-34.0) (27.0-34.0) (27.0-34.0) Mean Corpuscular Hemoglobin 35.0 % 34.1 % 33.0 % Concent (32.0-36.0) (32.0-36.0) (32.0-36.0) Red Cell Distribution Width 15.6 % 15.2 % 15.3 % (11.6-17.2) (11.6-17.2) (11.6-17.2) Platelet Count 281 TH/MM3 271 TH/MM3 283 TH/MM3 (150-450) (150-450) (150-450) Mean Platelet Volume 9.3 FL 9.3 FL 8.7 FL (7.0-11.0) (7.0-11.0) (7.0-11.0) Neutrophils (%) (Auto) 80.8 % 76.1 % 74.4 % (16.0-70.0) (16.0-70.0) (16.0-70.0) Lymphocytes (%) (Auto) 4.7 % 5.8 % 6.7 % (9.0-44.0) (9.0-44.0) (9.0-44.0) Monocytes (%) (Auto) 13.2 % 16.2 % 17.0 % (0.0-8.0) (0.0-8.0) (0.0-8.0) Eosinophils (%) (Auto) 1.0 % (0.0-4.0) 1.4 % (0.0-4.0) 1.7 % (0.0-4.0) Basophils (%) (Auto) 0.3 % (0.0-2.0) 0.5 % (0.0-2.0) 0.2 % (0.0-2.0) Neutrophils # (Auto) 15.7 TH/MM3 13.1 TH/MM3 13.2 TH/MM3 (1.8-7.7) (1.8-7.7) (1.8-7.7) Lymphocytes # (Auto) 0.9 TH/MM3 1.0 TH/MM3 1.2 TH/MM3 (1.0-4.8) (1.0-4.8) (1.0-4.8) Monocytes # (Auto) 2.6 TH/MM3 2.8 TH/MM3 3.0 TH/MM3 (0-0.9) (0-0.9) (0-0.9) Eosinophils # (Auto) 0.2 TH/MM3 0.2 TH/MM3 0.3 TH/MM3 (0-0.4) (0-0.4) (0-0.4) Basophils # (Auto) 0.1 TH/MM3 0.1 TH/MM3 0.0 TH/MM3 (0-0.2) (0-0.2) (0-0.2) CBC Comment AUTO DIFF AUTO DIFF AUTO DIFF Differential Total Cells 100 100 Counted Neutrophils % (Manual) 79 % (16-70) 62 % (16-70) Band Neutrophils % 1 % (0-6) 12 % (0-6) Lymphocytes % 7 % (9-44) 8 % (9-44) Monocytes % 12 % (0-8) 16 % (0-8) Basophils % 1 % (0-2) Neutrophils # (Manual) 15.5 TH/MM3 12.8 TH/MM3 (1.8-7.7) (1.8-7.7) Differential Comment FINAL DIFF FINAL DIFF AUTO DIFF MANUAL MANUAL CONFIRMED Platelet Estimate NORMAL NORMAL (NORMAL) (NORMAL) Platelet Morphology Comment NORMAL NORMAL (NORMAL) (NORMAL) Red Cell Morphology Comment NORMAL (NORMAL) Sodium Level 135 MEQ/L 137 MEQ/L 138 MEQ/L (136-145) (136-145) (136-145) Potassium Level 3.7 MEQ/L 3.5 MEQ/L 3.5 MEQ/L (3.5-5.1) (3.5-5.1) (3.5-5.1) Chloride Level 94 MEQ/L 96 MEQ/L 96 MEQ/L (98-107) (98-107) (98-107) Carbon Dioxide Level 19.3 MEQ/L 24.4 MEQ/L 21.9 MEQ/L (21.0-32.0) (21.0-32.0) (21.0-32.0) Anion Gap 22 MEQ/L (5-15) 17 MEQ/L (5-15) 20 MEQ/L (5-15) Blood Urea Nitrogen 107 MG/DL 74 MG/DL (7-18) 92 MG/DL (7-18) (7-18) Creatinine 14.48 MG/DL 10.96 MG/DL 13.06 MG/DL (0.60-1.30) (0.60-1.30) (0.60-1.30) Estimat Glomerular Filtration 3 ML/MIN (>89) 5 ML/MIN (>89) 4 ML/MIN (>89) Rate Random Glucose 164 MG/DL 183 MG/DL 175 MG/DL (74-106) (74-106) (74-106) Calcium Level 8.8 MG/DL 8.6 MG/DL 8.5 MG/DL (8.5-10.1) (8.5-10.1) (8.5-10.1) Total Bilirubin 0.8 MG/DL 0.8 MG/DL 0.7 MG/DL (0.2-1.0) (0.2-1.0) (0.2-1.0) Aspartate Amino Transf 332 U/L (15-37) 196 U/L (15-37) 96 U/L (15-37) (AST/SGOT) Alanine Aminotransferase 658 U/L (12-78) 419 U/L (12-78) 251 U/L (12-78) (ALT/SGPT) Alkaline Phosphatase 101 U/L 124 U/L 112 U/L (45-117) (45-117) (45-117) Total Creatine Kinase 1683 U/L 1104 U/L 625 U/L (39-308) (39-308) (39-308) Creatine Kinase MB 3.4 NG/ML 1.8 NG/ML 1.3 NG/ML (0.5-3.6) (0.5-3.6) (0.5-3.6) Creatine Kinase MB % 0.2 % (0.0-4.0) 0.2 % (0.0-4.0) 0.2 % (0.0-4.0) Total Protein 8.1 GM/DL 8.7 GM/DL 8.4 GM/DL (6.4-8.2) (6.4-8.2) (6.4-8.2) Albumin 2.9 GM/DL 3.4 GM/DL 3.0 GM/DL (3.4-5.0) (3.4-5.0) (3.4-5.0) Eosinophils % 2 % (0-4) Procalcitonin 2.56 ng/mL (0.00-0.50) Result Diagram: 09/22/16 0410 09/22/16 0410 Microbiology Microbiology Date/Time Procedure Status Source Growth 09/21/16 09:30 Aerobic Blood Culture - Preliminary Resulted Blood Peripheral NO GROWTH IN 1 DAY 09/21/16 09:30 Anaerobic Blood Culture - Preliminary Resulted Blood Peripheral NO GROWTH IN 1 DAY 09/21/16 09:40 Aerobic Blood Culture - Preliminary Resulted Blood Peripheral NO GROWTH IN 1 DAY 09/21/16 09:40 Anaerobic Blood Culture - Preliminary Resulted Blood Peripheral NO GROWTH IN 1 DAY Procedures * 09/15/06 -intubation * 09/14/16 -dialysis catheter placement . * 09/11/16 -extubation. * 09/10/16 -intubation. * 09/07/16 -cardiac catheter with angioplasty and stent placement. . Assessment and Plan Disease Oriented Problem List: (1) Acute tubular necrosis (2) Acute ischemic left MCA stroke (3) CAD (coronary artery disease) of bypass graft (4) CHF (congestive heart failure), NYHA class II (5) Liver function failure Symptom Scale: (1) Shortness of breath 0-10 Scale: Unable to quantify Comment: Reintubated 09/15/06. On mechanical ventilation. (2) Debility 0-10 Scale: Unable to quantify Comment: Secondary to CVA, acute complications, hospitalization. Pertinent Non-Medical Issues Psychosocial: . Has 2 children. Living independently prior to this hospitalization. Spiritual: Buddhist. Legal: Unknown if advance directives have been completed. Ethical issues impacting care: Unknown if advance directives have been completed. . Important Contacts Max Birmingham [phone]. Son Vaibhav Jr. Daughter Yani. . Prognosis Mr. Ferguson is a 66 y/o male with an adhesive significant cardiac history to include stenting in 2010, CAD status post 6 vessel CABG in 2011, and angioplasty and stenting in September 06. He was found to have significant blockage requiring angioplasty and stenting. 2 of 6 grafts are currently patent. Post cardiac catheter, patient developed aphasia and right sided hemiparesis. MRI of the brain showing acute nonhemorrhagic infarct. Patient was intubated and subsequently extubated secondary to respiratory failure and altered mental status. Vertical condition remains the same, he is obtunded and not following any commands. Patient with history of CKD now with acute tubular necrosis requiring renal replacement therapy. His prognosis is poor for a meaningful neurological recovery even if he is to survive this hospitalization given his age, severity of cardiac disease, complications to include stroke, and multiple comorbidities. He is at a very high risk for further decline, complications and . . Code Status: Full Code Plan * CODE STATUS: Full code. Risks, benefits and limitations of CPR readdressed with patient's family on 09/22/16 given patient clinical condition. * MEDICAL DECISION-MAKING: Patient incapacitated to make healthcare decisions secondary to clinical condition, unclear if he will regain. Max Dubose not sure if patient has completed advance directives. As per [place] statute, healthcare decision-making falls to patient's 3 children. * GOALS OF CARE: 09/22/16 -Family meeting. Continue current medical management to include FULL code while family discuss/decide goals of care to include trach/ peg, further medical management, and code status. Family meeting. In attendance patient's sons Vaibhav and Sedrick, daughter Yani, and grandson Louie. Medical update provided. Reviewed patient's prior state of health to include severe cardiac disease/chronic kidney disease, events leading to this hospitalization and clinical course. Reviewed medical complications to include CVA, acute respiratory failure, acute kidney failure/tubular necrosis, probable aspiration pneumonia and c. diff infection. Reviewed that patient is no longer requiring pressors and that hepatic function has improved but that patient continues to be critically ill requiring intubation, mech ventilation and hemodialysis. Reviewed concerns that even if patient is able to medically extubate, he may not be able to protect his airway secondary to AMS. Reviewed tracheostomy/peg tube placement and continuation of HD. Reviewed that is very likely that patient may require long-term HD given his history of CKD and acute events. Reviewed patient's potential for neuro recovery but unclear at this time to what level. Unlikely to return to independent living given his clinical status and acute events. Reviewed aggressive care vs. comfort-directed care. Reviewed likelihood of LTAC vs long-term SNF placement. Reviewed patient's previously stated wishes to his PCP regarding wishing DNR status. All questions were answered in great detail. Encouraged family to continue asking questions to attending and consulting physicians. * Ongoing emotional support and active listening provided to family. * SYMPTOMS: == Shortness of breath, patient recently intubated and extubated. Worsening clinical condition. Reintubated 09/15/16, remains on mechanical ventilation. == Debility, secondary to CVA, acute events and hospitalization. = = Anxiety, patient appears calm. * Case discussed with bedside RN. * Palliative care contact information has been provided to patient's family. * Palliative care will continue to follow-up to assist with symptom management and to further evaluate goals of care as the clinical course evolves. . Time Spent Time Periods: Family meeting from 14:25 to 15:10. Total Floor Time (mins): 70 (Total time to include review and summarization of medical records, physical exam, case discussion with attending and bedside RN and bedside family meeting from 14:25 to 15:10.) >50% Counseling/Coord of Care: Yes Attestation To help prompt me to consider important information that might be impacting today's encounter and assessment, information from prior notes written by myself or my colleagues may have been "brought forward" into today's note. My signature on this note, however, is an attestation that I personally performed the exam, history, and/or decision-making noted today, and, unless otherwise indicated, the interactions with patient, family, and staff as well as the review of records all occurred today. I also attest that the listed assessment and stated plan reflect my best clinical judgment today based on the combination of historical information, prior notes, and today's exam/ interactions. When time spent is documented, it refers only to time spent today by the signer, or if indicated, combined time spent today by collaborating physician/nurse practitioner. Simran Sorto Sep 22, 2016 11:27
--- NOTE | 2016-09-22 14:00 | HHI.NPPN ---
Subjective History of Present Illness 66-year-old male with history of coronary artery disease status post CABG, osteoarthritis, diabetes, hyperlipidemia who was admitted there with unstable angina and underwent heart catheterization found to have significant blockages requiring stent and impella device, he has acute renal failure. Additional Remarks Patient on Vent Objective Data Data 09/21/16 09/22/16 19:00 07:00 Intake Total 643 ml 1600 ml Output Total 250 ml 140 ml Balance 393 ml 1460 ml Intake Oral 0 ml IV Total 440 ml 960 ml Tube Feeding 103 ml 520 ml Tube Irrigant 100 ml Other 120 ml Output Urine Total 50 ml 15 ml Stool Total 200 ml 125 ml Vital Signs Date Time Temp Pulse Resp B/P Pulse Ox O2 Delivery O2 Flow Rate FiO2 09/22/16 12:04 40 09/22/16 12:00 100.0 97 21 127/67 98 09/22/16 12:00 100 40 09/22/16 12:00 93 09/22/16 12:00 40 09/22/16 10:00 90 09/22/16 09:42 100 40 09/22/16 08:00 100.5 97 24 125/74 93 09/22/16 08:00 97 09/22/16 08:00 40 09/22/16 06:00 100 09/22/16 04:17 94 40 09/22/16 04:00 99.9 96 18 108/71 94 09/22/16 04:00 40 09/22/16 04:00 96 09/22/16 02:00 97 09/22/16 01:24 96 40 09/22/16 00:00 40 09/22/16 00:00 99.8 93 18 114/62 94 09/22/16 00:00 93 09/21/16 22:23 96 40 09/21/16 22:00 94 09/21/16 20:00 100.4 101 18 98/64 94 09/21/16 20:00 101 09/21/16 20:00 40 09/21/16 19:32 95 40 09/21/16 18:18 100.9 09/21/16 18:00 101 09/21/16 16:00 104 09/21/16 16:00 40 09/21/16 16:00 102.0 104 24 148/72 92 09/21/16 15:48 91 40 09/21/16 14:00 94 40 09/21/16 14:00 99 -: 09/22/16 0410 09/22/16 0410 Physical Exam General Appearance: Well Developed, Well Nourished Pulmonary Resp Exam: Crackles, Rhonchi, Decreased Bases, Diminished Breath Sounds Cardiology CV Exam: Regular, Normal Sinus Rhythm Gastrointestinal/Abdomen GI Exam: Soft, Non-Tender, Bowel Sounds Present, Distended Extremeties Extremities Exam: Moderate Edema, Pitting Edema, Dependent Edema Neurologic Neuro Exam: Sedated Assessment/Plan Problem List: (1) Acute renal failure Plan: off vasopressor BP better on vent intubated He has elevation in the creatinine and he is oliguric. Renal failure on hemodialysis HD on M,W,F HD done today UF 3 L (2) Hyperkalemia Plan: Resolved (3) Chronic kidney disease Plan: He has stage III chronic kidney disease due to diabetic (4) CHF (congestive heart failure), NYHA class III Plan: Continue to monitor for improvement (5) Coronary artery disease involving [place] heart Plan: Review his bypass and stents (6) Hypertension, essential, benign Plan: Monitor blood pressure (7) Diabetes mellitus, type II Plan: Monitor blood glucose (8) UTI (lower urinary tract infection) Plan: Meropenem (9) CVA (cerebral vascular accident) Plan: remain unresponsive moves left side more (10) Need for prophylactic vaccination and inoculation against influenza (11) Clostridium difficile infection Plan: on PO Vanco Problem Qualifiers (1) Acute renal failure: Qualified Code: N17.0 - Acute renal failure with tubular necrosis (2) Chronic kidney disease: Qualified Code: N18.4 - Chronic kidney disease, stage 4 (severe) Marisol Naidu MD Sep 22, 2016 14:00
--- NOTE | 2016-09-22 15:15 | HHI.IDPN ---
Subjective Subjective Remarks ID COVERAGE Mr. Ferguson is a 66 y/o male with a medical history of CAD status post 6 vessel CABG in 2011, CHF, CAD, hypertension, diabetes mellitus type 2, obesity, and sleep apnea. On 09/07/16, patient underwent cardiac catheterization , he was found to have significant blockage requiring angioplasty and stenting. Post cardiac catheter, patient developed aphasia and right sided hemiparesis. CT of the brain show no acute process. Neurology -Dr. Nguyen consulted. Brain MRI obtained on 09/09/16 showing acute nonhemorrhagic infarction in the left sylvian region. Patient developed respiratory distress and was placed on BiPAP , subsequently intubated and placed on mechanical ventilation. developed ARF, on HD Patient was being treated for aspiration Pneumonia. Intubated September 15 Started on HD Sep 14 Infectious disease following for septic shock, aspiration Pneumonia, confirmed C. difficile colitis. Notes reviewed D/W RN Febrile today Tolerating CPAP Had HD today Has liquid stool Copious thick yellow ET secretions Off pressors Having HD CT with no colitis. Abnormal LFTs trending down WBC decreasing BC negative Has RIJ TLC and vascath Sputum / with Pseudomonas, resistant Antibiotics Zerbaxa Vanco oral. Zyvox IV Diflucan Tobra nebs Lines RIJ TLC and vascath Past Medical History reviewed Allergies: Coded Allergies: No Known Allergies (Verified , 09/07/16) Objective . Vital Signs Date Time Temp Pulse Resp B/P Pulse Ox O2 Delivery O2 Flow Rate FiO2 09/22/16 14:00 97 09/22/16 12:04 40 09/22/16 12:00 100.0 97 21 127/67 98 09/22/16 12:00 100 40 09/22/16 12:00 93 09/22/16 12:00 40 09/22/16 10:00 90 09/22/16 09:42 100 40 09/22/16 08:00 100.5 97 24 125/74 93 09/22/16 08:00 97 09/22/16 08:00 40 09/22/16 06:00 100 09/22/16 04:17 94 40 09/22/16 04:00 99.9 96 18 108/71 94 09/22/16 04:00 40 09/22/16 04:00 96 09/22/16 02:00 97 09/22/16 01:24 96 40 09/22/16 00:00 40 09/22/16 00:00 99.8 93 18 114/62 94 09/22/16 00:00 93 09/21/16 22:23 96 40 09/21/16 22:00 94 09/21/16 20:00 100.4 101 18 98/64 94 09/21/16 20:00 101 09/21/16 20:00 40 09/21/16 19:32 95 40 09/21/16 18:18 100.9 09/21/16 18:00 101 09/21/16 16:00 104 09/21/16 16:00 40 09/21/16 16:00 102.0 104 24 148/72 92 09/21/16 15:48 91 40 09/21/16 09/21/16 09/22/16 14:59 22:59 06:59 Intake Total 643 ml 955 ml 645 ml Output Total 250 ml 110 ml 30 ml Balance 393 ml 845 ml 615 ml Intake Oral 0 ml 0 ml IV Total 440 ml 660 ml 300 ml Tube Feeding 103 ml 235 ml 285 ml Tube Irrigant 100 ml Other 60 ml 60 ml Output Urine Total 50 ml 10 ml 5 ml Stool Total 200 ml 100 ml 25 ml . Laboratory Tests Test 09/21/16 09/22/16 04:00 04:10 White Blood Count 17.3 TH/MM3 17.8 TH/MM3 Red Blood Count 3.50 MIL/MM3 3.59 MIL/MM3 Hemoglobin 10.6 GM/DL 10.6 GM/DL Hematocrit 31.0 % 32.2 % Mean Corpuscular Volume 88.6 FL 89.6 FL Mean Corpuscular Hemoglobin 30.2 PG 29.5 PG Mean Corpuscular Hemoglobin 34.1 % 33.0 % Concent Red Cell Distribution Width 15.2 % 15.3 % Platelet Count 271 TH/MM3 283 TH/MM3 Mean Platelet Volume 9.3 FL 8.7 FL Neutrophils (%) (Auto) 76.1 % 74.4 % Lymphocytes (%) (Auto) 5.8 % 6.7 % Monocytes (%) (Auto) 16.2 % 17.0 % Eosinophils (%) (Auto) 1.4 % 1.7 % Basophils (%) (Auto) 0.5 % 0.2 % Neutrophils # (Auto) 13.1 TH/MM3 13.2 TH/MM3 Lymphocytes # (Auto) 1.0 TH/MM3 1.2 TH/MM3 Monocytes # (Auto) 2.8 TH/MM3 3.0 TH/MM3 Eosinophils # (Auto) 0.2 TH/MM3 0.3 TH/MM3 Basophils # (Auto) 0.1 TH/MM3 0.0 TH/MM3 CBC Comment AUTO DIFF AUTO DIFF Differential Total Cells 100 Counted Neutrophils % (Manual) 62 % Band Neutrophils % 12 % Lymphocytes % 8 % Monocytes % 16 % Eosinophils % 2 % Neutrophils # (Manual) 12.8 TH/MM3 Differential Comment FINAL DIFF AUTO DIFF MANUAL CONFIRMED Platelet Estimate NORMAL Platelet Morphology Comment NORMAL Laboratory Tests Test 09/21/16 09/21/16 09/22/16 04:00 09:30 04:10 Sodium Level 137 MEQ/L 138 MEQ/L Potassium Level 3.5 MEQ/L 3.5 MEQ/L Chloride Level 96 MEQ/L 96 MEQ/L Carbon Dioxide Level 24.4 MEQ/L 21.9 MEQ/L Anion Gap 17 MEQ/L 20 MEQ/L Blood Urea Nitrogen 74 MG/DL 92 MG/DL Creatinine 10.96 MG/DL 13.06 MG/DL Estimat Glomerular Filtration 5 ML/MIN 4 ML/MIN Rate Random Glucose 183 MG/DL 175 MG/DL Calcium Level 8.6 MG/DL 8.5 MG/DL Total Bilirubin 0.8 MG/DL 0.7 MG/DL Aspartate Amino Transf 196 U/L 96 U/L (AST/SGOT) Alanine Aminotransferase 419 U/L 251 U/L (ALT/SGPT) Alkaline Phosphatase 124 U/L 112 U/L Total Protein 8.7 GM/DL 8.4 GM/DL Albumin 3.4 GM/DL 3.0 GM/DL Total Creatine Kinase 1104 U/L 625 U/L Creatine Kinase MB 1.8 NG/ML 1.3 NG/ML Creatine Kinase MB % 0.2 % 0.2 % Procalcitonin 2.56 ng/mL Microbiology Date/Time Procedure Status Source Growth 09/21/16 09:30 Aerobic Blood Culture - Preliminary Resulted Blood Peripheral NO GROWTH IN 1 DAY 09/21/16 09:30 Anaerobic Blood Culture - Preliminary Resulted Blood Peripheral NO GROWTH IN 1 DAY 09/21/16 09:40 Aerobic Blood Culture - Preliminary Resulted Blood Peripheral NO GROWTH IN 1 DAY 09/21/16 09:40 Anaerobic Blood Culture - Preliminary Resulted Blood Peripheral NO GROWTH IN 1 DAY Imaging Liver Ultrasound 09/17/16 1030 Signed Impressions: Service Date/Time: Saturday, September 17, 2016 11:01 - CONCLUSION: 1. Minimally complex cyst right mid kidney. 2. Liver mildly enlarged. Cesar Mcfadden MD Abdomen X-Ray 09/17/16 0600 Signed Impressions: Service Date/Time: Saturday, September 17, 2016 05:05 - CONCLUSION: Nonspecific abdomen appearance. Michael Ross MD Chest X-Ray 09/15/16 1621 Signed Impressions: Service Date/Time: Thursday, September 15, 2016 16:33 - CONCLUSION: 1. Uncomplicated line placement. No evidence of pneumothorax. Wesley Chaudhari MD Head CT 09/15/16 0000 Signed Impressions: Service Date/Time: Thursday, September 15, 2016 10:15 - CONCLUSION: 1. Sizable area of decreased attenuation in the left MCA distribution most consistent with subacute cortical infarct. This there is stable compared to previous MR dated 09/09/16. Sanket Gonzalez MD Central Venous Line 09/15/16 0000 Signed Impressions: Service Date/Time: Thursday, September 15, 2016 00:00 - CONCLUSION: Uncomplicated line placement as above. Wesley Chaudhari MD Abdomen/Pelvis CT 09/15/16 0000 Signed Impressions: Service Date/Time: Thursday, September 15, 2016 17:00 - CONCLUSION: 1. Gaseous distension of the stomach. 2. I do not see evidence for significant colitis. Lowell Gonzalez MD FACR Catheter Placement X-Ray 09/14/16 0000 Signed Impressions: Service Date/Time: Wednesday, September 14, 2016 00:00 - CONCLUSION: Uncomplicated line placement as above. Wesley Chaudhari MD Carotid Artery Ultrasound 09/13/16 0000 Signed Impressions: Service Date/Time: Tuesday, September 13, 2016 16:46 - CONCLUSION: Significant plaque remains evident in the carotid bifurcations. Poor visualization and difficulty velocity sampling of the proximal internal carotid arteries was again encountered. Significant carotid stenosis cannot be excluded. Nonvisualization of the vertebral arteries. Mack Brizuela MD Brain MRI 09/09/16 0000 Signed Impressions: Service Date/Time: August 16:36 - CONCLUSION: 1. Findings demonstrate an acute infarction in the left sylvian region, nonhemorrhagic. 2. Small air-fluid level right maxillary sinus and mild bilateral ethmoid sinus disease. Suresh Diaz MD Renal Ultrasound 09/08/16 0000 Signed Impressions: Service Date/Time: Thursday, September 08, 2016 16:04 - CONCLUSION: Large 6.3 cm cyst lower pole laterally left kidney. No evidence of hydronephrosis or obstructive uropathy.. Christian Cooper MD Physical Exam GENERAL: Obese male patient, sedated, on the vent. Comfortable on CPAP SKIN: No rashes, ecchymoses or lesions. Cool and dry. HEAD: Atraumatic. Normocephalic. No temporal or scalp tenderness. EYES: Pupils equal round and reactive. No scleral icterus. No injection or drainage. ENT: Intubated. Oral mucosae moist NECK: Trachea midline. Supple, nontender, no meningeal signs. Line in neck looks ok CARDIOVASCULAR: Heart sounds audible. RESPIRATORY: Clear to auscultation. Breath sounds equal bilaterally. GASTROINTESTINAL: Abdomen soft, non-tender, nondistended. MUSCULOSKELETAL: Extremities without clubbing, cyanosis, or edema. NEUROLOGICAL: Sedated Psych can not be assessed IV line sites with no evidence of infection. : Guillen in place Assessment & Plan Remarks IMPRESSION Septic shock with multiorgan dysfunction syndrome - BP better Aspiration Pneumonia - C/S prelim Pseudomonas, resistant Clostridium diff colitis Acute resp failure on vent. Acute metabolic encephalopathy: stroke, sepsis, metabolic. Acute renal failure: meds, sepsis, ATN on HD now. CAD, CA Acute stroke fevers Recs Continue Vanco oral for Cdiff Continue Zerbaxa Continue Zyvox IV (possible MRSA pneumonia will deescalate based on sputum cultures) for now, will dc if no MRSA in final sputum Continue Diflucan Follow C/S Monitor progress Abx will be adjusted once C/S finalized Weaning per CCM D/W Sparkle Fulton MD Sep 22, 2016 15:15
--- NOTE | 2016-09-22 15:21 | HHI.GIFU ---
Subjective Remarks Sedated on vent in no distress. TF restarted. Called Dr. Cummins's office- he is out of office until tomorrow. Objective Vitals I&O Vital Signs Date Time Temp Pulse Resp B/P Pulse Ox O2 Delivery O2 Flow Rate FiO2 09/22/16 14:00 97 09/22/16 12:04 40 09/22/16 12:00 100.0 97 21 127/67 98 09/22/16 12:00 100 40 09/22/16 12:00 93 09/22/16 12:00 40 09/22/16 10:00 90 09/22/16 09:42 100 40 09/22/16 08:00 100.5 97 24 125/74 93 09/22/16 08:00 97 09/22/16 08:00 40 09/22/16 06:00 100 09/22/16 04:17 94 40 09/22/16 04:00 99.9 96 18 108/71 94 09/22/16 04:00 40 09/22/16 04:00 96 09/22/16 02:00 97 09/22/16 01:24 96 40 09/22/16 00:00 40 09/22/16 00:00 99.8 93 18 114/62 94 09/22/16 00:00 93 09/21/16 22:23 96 40 09/21/16 22:00 94 09/21/16 20:00 100.4 101 18 98/64 94 09/21/16 20:00 101 09/21/16 20:00 40 09/21/16 19:32 95 40 09/21/16 18:18 100.9 09/21/16 18:00 101 09/21/16 16:00 104 09/21/16 16:00 40 09/21/16 16:00 102.0 104 24 148/72 92 09/21/16 15:48 91 40 I/O 09/21/16 09/21/16 09/21/16 09/22/16 09/22/16 09/22/16 07:00 15:00 23:00 07:00 15:00 23:00 Intake Total 490 ml 643 ml 955 ml 645 ml 561 ml Output Total 50 ml 250 ml 110 ml 30 ml 3325 ml Balance 440 ml 393 ml 845 ml 615 ml -2764 ml Intake Oral 0 ml 0 ml 0 ml IV Total 295 ml 440 ml 660 ml 300 ml 364 ml Tube Feeding 135 ml 103 ml 235 ml 285 ml 97 ml Tube Irrigant 100 ml 100 ml Other 60 ml 60 ml 60 ml Output Urine Total 0 ml 50 ml 10 ml 5 ml 25 ml Stool Total 50 ml 200 ml 100 ml 25 ml 300 ml Hemodialysis 3000 ml Laboratory Laboratory Tests Test 09/22/16 04:10 White Blood Count 17.8 Red Blood Count 3.59 Hemoglobin 10.6 Hematocrit 32.2 Mean Corpuscular Volume 89.6 Mean Corpuscular Hemoglobin 29.5 Mean Corpuscular Hemoglobin 33.0 Concent Red Cell Distribution Width 15.3 Platelet Count 283 Mean Platelet Volume 8.7 Neutrophils (%) (Auto) 74.4 Lymphocytes (%) (Auto) 6.7 Monocytes (%) (Auto) 17.0 Eosinophils (%) (Auto) 1.7 Basophils (%) (Auto) 0.2 Neutrophils # (Auto) 13.2 Lymphocytes # (Auto) 1.2 Monocytes # (Auto) 3.0 Eosinophils # (Auto) 0.3 Basophils # (Auto) 0.0 CBC Comment AUTO DIFF Differential Comment AUTO DIFF CONFIRMED Sodium Level 138 Potassium Level 3.5 Chloride Level 96 Carbon Dioxide Level 21.9 Anion Gap 20 Blood Urea Nitrogen 92 Creatinine 13.06 Estimat Glomerular Filtration 4 Rate Random Glucose 175 Calcium Level 8.5 Total Bilirubin 0.7 Aspartate Amino Transf 96 (AST/SGOT) Alanine Aminotransferase 251 (ALT/SGPT) Alkaline Phosphatase 112 Total Creatine Kinase 625 Creatine Kinase MB 1.3 Creatine Kinase MB % 0.2 Total Protein 8.4 Albumin 3.0 Procalcitonin 2.56 Date/Time Procedure Status Source Growth 09/21/16 09:40 Aerobic Blood Culture - Preliminary Resulted Blood Peripheral NO GROWTH IN 1 DAY 09/21/16 09:40 Anaerobic Blood Culture - Preliminary Resulted Blood Peripheral NO GROWTH IN 1 DAY Imaging Last Impressions Chest X-Ray 09/21/16 0000 Signed Impressions: Service Date/Time: Wednesday, September 21, 2016 07:47 - CONCLUSION: Stable chest without evidence of significant congestion or acute air space disease. Stable satisfactory position and supported devices. Mack Brizuela MD Liver Ultrasound 09/17/16 1030 Signed Impressions: Service Date/Time: Saturday, September 17, 2016 11:01 - CONCLUSION: 1. Minimally complex cyst right mid kidney. 2. Liver mildly enlarged. Cesar Mcfadden MD Abdomen X-Ray 09/17/16 0600 Signed Impressions: Service Date/Time: Saturday, September 17, 2016 05:05 - CONCLUSION: Nonspecific abdomen appearance. Michael Ross MD Head CT 09/15/16 0000 Signed Impressions: Service Date/Time: Thursday, September 15, 2016 10:15 - CONCLUSION: 1. Sizable area of decreased attenuation in the left MCA distribution most consistent with subacute cortical infarct. This there is stable compared to previous MR dated 09/09/16. Sanket Gonzalez MD Central Venous Line 09/15/16 0000 Signed Impressions: Service Date/Time: Thursday, September 15, 2016 00:00 - CONCLUSION: Uncomplicated line placement as above. Wesley Chaudhari MD Abdomen/Pelvis CT 09/15/16 0000 Signed Impressions: Service Date/Time: Thursday, September 15, 2016 17:00 - CONCLUSION: 1. Gaseous distension of the stomach. 2. I do not see evidence for significant colitis. Lowell Gonzalez MD FACR Catheter Placement X-Ray 09/14/16 0000 Signed Impressions: Service Date/Time: Wednesday, September 14, 2016 00:00 - CONCLUSION: Uncomplicated line placement as above. Wesley Chaudhari MD Carotid Artery Ultrasound 09/13/16 0000 Signed Impressions: Service Date/Time: Tuesday, September 13, 2016 16:46 - CONCLUSION: Significant plaque remains evident in the carotid bifurcations. Poor visualization and difficulty velocity sampling of the proximal internal carotid arteries was again encountered. Significant carotid stenosis cannot be excluded. Nonvisualization of the vertebral arteries. Mack Brizuela MD Brain MRI 09/09/16 0000 Signed Impressions: Service Date/Time: August 16:36 - CONCLUSION: 1. Findings demonstrate an acute infarction in the left sylvian region, nonhemorrhagic. 2. Small air-fluid level right maxillary sinus and mild bilateral ethmoid sinus disease. Suresh Diaz MD Renal Ultrasound 09/08/16 0000 Signed Impressions: Service Date/Time: Thursday, September 08, 2016 16:04 - CONCLUSION: Large 6.3 cm cyst lower pole laterally left kidney. No evidence of hydronephrosis or obstructive uropathy.. Christian Cooper MD Physical Exam HEENT: Normocephalic; atraumatic; no jaundice. NECK: Supple. CHEST: CTA, OETT to vent CARDIAC: RRR ABDOMEN: Soft, nondistended, nontender; no hepatosplenomegaly; bowel sounds are present in all four quadrants. OGT with TF EXTREMITIES: Generalized edema. SKIN: BLE cool/dry. [employer]: Intubated unresponsive Assessment and Plan Plan ASSESSMENT: - Dysphagia/FEN. Patient with known history of coronary artery disease and a recent CABG who also apparently had recent CVA, currently intubated patient also appears to be septic and hypotensive on vasopressors. Palliative care following. Family has decided to pursue EGD with PEG. TF was started, so far tolerating at 20cc/ hr. Nurse reports that he has had issues with high residuals, high gastric output. He previously had gaseous distention of stomach on CT. He does have a hx of DM. Possibly may have some underlying gastroparesis and therefore IR was consulted for G/ J tube placement. Spoke to Dr. Brizuela 09/20, they are unable to place GJ tube until Plavix has been off for 5 days. D/W Dr. Leon, patient has stent and he is unsure if plavix can be held, as per Dr. Cummins, the patient will need to remain on Plavix and ASA to avoid occlusion of stent. Spoke to Consuelo, who called Dr. Cummins yesterday- Amandar anjali, per ROSALINDA clements to hold plavix and bridge with heparin. However, patient with recent stent placement. Called Dr. Cummins's office to clarify and he is out of office until tomorrow. Will call again in the am to ask about holding plavix. If not, will talk to family about increased risk of bleeding of placing PEG while on Plavix. . - High gastric output with gaseous distention of stomach on CT. Abdomen/Pelvis CT (09/15/16)----> 1. Gaseous distension of the stomach. 2. I do not see evidence for significant colitis. Abdomen X-Ray (09/17/16)--- > Nonspecific abdomen appearance. Cont. to have high residuals- TF at 15cc/hr because he is not tolerating this. He would really benefit from G/J tube, but they are unable to place unless the Plavix can be held x 5 days and the patient has recent stent placement so this is likely not possible. Will start reglan at reduced dose secondary to renal function. - Acute ischemic left MCA, ARF, CHF, CAD, HTN, CKD per [facility] PLAN: - NPO after MN - TF as tolerated - Reglan 5mg IV q8h - Will d/w Dr. Valencia in am possibility of holding plavix for G/J tube placement. If unable, will d/w family placing PEG while on plavix (increased risk fof bleeding). - Further recommendations to follow based on results of above - Pt seen and examined by Dr. Barahoan and myself and this note is written on his behalf Elidia Black Sep 22, 2016 15:20
[2016-09-22] MEDS: METOCLOPRAMIDE HCL 10 MG/2 ML VIAL IV PUSH SCH (20:27)
[2016-09-22] MEDS: ACETAMINOPHEN 1000 MG/100 ML VIAL IV PRN (20:34)
[2016-09-23] VITALS (18 sets, daily range): BP systolic 97–125; BP diastolic 55–82; PULSE 75–100; RESP 18–24; TEMP 99–100.4; O2SAT 96–100
[2016-09-23] MEDS: INSULIN NovoLIN REGULAR SUPPLEMENTAL SCALE SQ SCH ×6 (01:00→20:36)
[2016-09-23] MEDS: CHLORHEXIDINE GLUCONATE 2 % 1 PACK (2 CLOTHS) TOP SCH (04:00)
[2016-09-23] MEDS: METOCLOPRAMIDE HCL 10 MG/2 ML VIAL IV PUSH SCH ×3 (04:15→20:34)
[2016-09-23] MEDS: TAZOBACTAM IV SCH ×6 (04:15→20:50)
[2016-09-23] MEDS: LINEZOLID 600 MG PREMIX 300 ML IV SCH ×2 (04:15→15:54)
[2016-09-23] MEDS: CEFTOLOZANE IV SCH ×6 (04:15→20:50)
[2016-09-23] MEDS: SODIUM CHLORIDE IV SCH ×6 (04:15→20:50)
[2016-09-23 04:47] LABS: AUTOMATED NEUTROPHIL # 12.8 TH/MM3 (1.8-7.7); BASOPHIL # 0.1 TH/MM3 (0-0.2); BASOPHIL % 0.4 % (0.0-2.0); EOSINOPHIL # 0.2 TH/MM3 (0-0.4); EOSINOPHIL % 1.4 % (0.0-4.0); HEMATOCRIT 29.4 % (39.0-51.0); HEMO FLAGS AUTO DIFF; LYMPH % 6.9 % (9.0-44.0); LYMPHOCYTE # 1.2 TH/MM3 (1.0-4.8); MEAN CELL VOLUME 88.5 FL (80.0-100.0); MEAN CORPUSCULAR HEMOGLOBIN 29.9 PG (27.0-34.0); MEAN CORPUSCULAR HGB CONC 33.8 % (32.0-36.0); MONO % 15.6 % (0.0-8.0); NEUT % 75.7 % (16.0-70.0); PLATELET COUNT 268 TH/MM3 (150-450); RED BLOOD COUNT 3.32 MIL/MM3 (4.50-5.90); RED CELL DISTRIBUTION WIDTH 15.2 % (11.6-17.2); WHITE BLOOD COUNT 16.9 TH/MM3 (4.0-11.0)
[2016-09-23 05:20] LABS: ALKALINE PHOSPHATASE 81 U/L (45-117); ALT (GPT) 144 U/L (12-78); ANION GAP 19 MEQ/L (5-15); AST (GOT) 54 U/L (15-37); BICARBONATE 24.2 MEQ/L (21.0-32.0); BLOOD UREA NITROGEN 68 MG/DL (7-18); CHLORIDE 95 MEQ/L (98-107); CREATINE KINASE 391 U/L (39-308); GLOMERULAR FILTRATION RATE 5 ML/MIN (>89); POTASSIUM 3.3 MEQ/L (3.5-5.1); SODIUM (NA) 138 MEQ/L (136-145); TOTAL BILIRUBIN ADULT 0.8 MG/DL (0.2-1.0)
[2016-09-23 06:06] LABS: CKMB 0.9 NG/ML (0.5-3.6)
--- NOTE | 2016-09-23 06:58 | RADRPT ---
EXAM DATE/TIME: 09/23/2016 05:21 [facility] COMPARISON: CHEST SINGLE AP, September 21, 2016, 7:47. INDICATIONS : Shortness of breath, possible pulmonary disease. MEDICAL HISTORY : Stroke. Hypertension Cardiovascular disease. Diabetes SURGICAL HISTORY : CABG. ENCOUNTER: Subsequent ACUITY: 1 week PAIN SCORE: Non-responsive. LOCATION: Bilateral chest FINDINGS: A single view of the chest demonstrates lungs are hypoinflated. No acute infiltrate or effusion. Find ings of prior CABG. Intact median sternotomy wires. Endotracheal and nasogastric tubes are stable in position. Right IJ central venous catheters are also stable.. CONCLUSION: 1. Hypoinflation with no acute cardiopulmonary process. 2. Accounting for low lung volumes, heart size is borderline prominent but a well compensated. Dejon Virgen MD on September 23, 2016 at 6:55 Board Certified Radiologist. This report was verified electronically.
[2016-09-23 08:12] LABS: BANDS 3 % (0-6); METAMYELOCYTES 1 % (0-1); MYELOCYTES 1 % (0-0); NEUTROPHIL # MANUAL DIFF 14.4 TH/MM3 (1.8-7.7); PLATELET ESTIMATE SMEAR NORMAL (NORMAL); PLATELET MORPHOLOGY NORMAL (NORMAL); POLYS (SEG NEUTROPHILS) 80 % (16-70); SCAN/DIFF FINAL DIFF MANUAL; WBC DIFF SAMPLE 100
[2016-09-23] MEDS: RESP: TOBRAMYCIN SULFATE 300 MG/5 ML NEB NEB SCH ×2 (08:23→20:14)
[2016-09-23] MEDS: INSULIN DETEMIR 100 UNITS/ML VIAL SQ SCH ×2 (09:00→20:39)
[2016-09-23] MEDS: SODIUM CHLOR 0.9% 1000 ML INJ 1,000 ML IV SCH (09:07)
[2016-09-23] MEDS: DOCUSATE SODIUM 100 MG/10 ML UDC PO SCH ×2 (09:58→20:37)
[2016-09-23] MEDS: SENNOSIDES SYRUP 8.8 MG/5 ML CUP PO SCH (09:58)
[2016-09-23] MEDS: HEPARIN SODIUM - SQ 10,000 UNITS/ML VIAL SQ SCH ×2 (09:59→20:37)
[2016-09-23] MEDS: CLOPIDOGREL 75 MG TAB PO SCH (09:59)
[2016-09-23] MEDS: ASPIRIN 81 MG CHEW TAB CHEW SCH (09:59)
[2016-09-23] MEDS: VANCOMYCIN 500 MG VIAL (FOR ORAL USE ONLY) PO SCH ×4 (09:59→20:39)
[2016-09-23] MEDS: SODIUM CHLORIDE 0.9% FLUSH 5 ML FLUSH IV FLUSH SCH ×2 (10:00→20:38)
[2016-09-23] MEDS: ARTIFICIAL TEARS OPTH OINT 3.5 APPLIC/3.5 GM TUBO EACH EYE SCH ×2 (10:00→20:40)
[2016-09-23] MEDS: SODIUM CHLORIDE 0.9% FLUSH 5 ML FLUSH IVF SCH (10:00)
[2016-09-23] MEDS: PANTOPRAZOLE SODIUM 40 MG VIAL IV PUSH SCH ×2 (10:00→20:38)
[2016-09-23] MEDS: CHLORHEXIDINE 0.12% (ORAL KIT) 15 ML CUP MT SCH ×2 (10:01→20:39)
--- NOTE | 2016-09-23 10:18 | HHI.GIFU ---
Subjective Remarks Resting in bed. Had fevers overnight. Improved now. D/W Dr. Cummins's office - Do not hold Plavix. Called son, Sedrick [place] and discussed that per cardiology, we are not able to hold the plavix and for us to place PEG while on Plavix, the patient is at a high risk for bleeding. He believes that they will most likely proceed, but wants to call his sister and discuss it with her before making final decision. (Elidia Black) Objective Vitals I&O Vital Signs Date Time Temp Pulse Resp B/P Pulse Ox O2 Delivery O2 Flow Rate FiO2 09/23/16 08:24 99 40 09/23/16 08:24 40 09/23/16 06:00 93 09/23/16 04:25 100 40 09/23/16 04:00 40 09/23/16 04:00 91 09/23/16 04:00 99.0 91 18 118/65 99 09/23/16 02:00 96 09/23/16 00:02 100 40 09/23/16 00:00 100.1 88 18 104/55 100 09/23/16 00:00 88 09/23/16 00:00 40 09/22/16 22:00 95 09/22/16 20:00 101.8 97 18 100/57 100 09/22/16 20:00 97 09/22/16 20:00 40 09/22/16 19:35 100 40 09/22/16 18:22 99 40 09/22/16 18:00 99 09/22/16 16:00 100.3 97 28 133/57 98 09/22/16 16:00 97 09/22/16 16:00 40 09/22/16 15:51 100 40 09/22/16 14:00 97 09/22/16 12:04 40 09/22/16 12:00 100.0 97 21 127/67 98 09/22/16 12:00 100 40 09/22/16 12:00 93 09/22/16 12:00 40 I/O 09/22/16 09/22/16 09/22/16 09/23/16 09/23/16 09/23/16 07:00 15:00 23:00 07:00 15:00 23:00 Intake Total 645 ml 561 ml 835 ml 155 ml Output Total 30 ml 3325 ml 155 ml 55 ml Balance 615 ml -2764 ml 680 ml 100 ml Intake Oral 0 ml 0 ml 0 ml IV Total 300 ml 364 ml 670 ml 155 ml Tube Feeding 285 ml 97 ml 105 ml 0 ml Tube Irrigant 100 ml Other 60 ml 60 ml 0 ml Output Urine Total 5 ml 25 ml 5 ml 5 ml Stool Total 25 ml 300 ml 150 ml 50 ml Hemodialysis 3000 ml Laboratory Laboratory Tests Test 09/22/16 09/23/16 20:30 04:35 Urine Eosinophils NONE SEEN White Blood Count 16.9 Red Blood Count 3.32 Hemoglobin 9.9 Hematocrit 29.4 Mean Corpuscular Volume 88.5 Mean Corpuscular Hemoglobin 29.9 Mean Corpuscular Hemoglobin 33.8 Concent Red Cell Distribution Width 15.2 Platelet Count 268 Mean Platelet Volume 8.3 Neutrophils (%) (Auto) 75.7 Lymphocytes (%) (Auto) 6.9 Monocytes (%) (Auto) 15.6 Eosinophils (%) (Auto) 1.4 Basophils (%) (Auto) 0.4 Neutrophils # (Auto) 12.8 Lymphocytes # (Auto) 1.2 Monocytes # (Auto) 2.6 Eosinophils # (Auto) 0.2 Basophils # (Auto) 0.1 CBC Comment AUTO DIFF Differential Total Cells 100 Counted Neutrophils % (Manual) 80 Band Neutrophils % 3 Lymphocytes % 6 Monocytes % 9 Neutrophils # (Manual) 14.4 Metamyelocytes 1 Myelocytes 1 Differential Comment FINAL DIFF MANUAL Platelet Estimate NORMAL Platelet Morphology Comment NORMAL Sodium Level 138 Potassium Level 3.3 Chloride Level 95 Carbon Dioxide Level 24.2 Anion Gap 19 Blood Urea Nitrogen 68 Creatinine 10.25 Estimat Glomerular Filtration 5 Rate Random Glucose 197 Calcium Level 8.9 Total Bilirubin 0.8 Aspartate Amino Transf 54 (AST/SGOT) Alanine Aminotransferase 144 (ALT/SGPT) Alkaline Phosphatase 81 Total Creatine Kinase 391 Creatine Kinase MB 0.9 Creatine Kinase MB % 0.2 Total Protein 8.6 Albumin 3.6 Date/Time Procedure Status Source Growth 09/21/16 09:40 Aerobic Blood Culture - Preliminary Resulted Blood Peripheral NO GROWTH IN 1 DAY 09/21/16 09:40 Anaerobic Blood Culture - Preliminary Resulted Blood Peripheral NO GROWTH IN 1 DAY Imaging Last Impressions Chest X-Ray 09/23/16 0600 Signed Impressions: Service Date/Time: September 05:21 - CONCLUSION: 1. Hypoinflation with no acute cardiopulmonary process. 2. Accounting for low lung volumes, heart size is borderline prominent but a well compensated. Dejon Virgen MD Liver Ultrasound 09/17/16 1030 Signed Impressions: Service Date/Time: Saturday, September 17, 2016 11:01 - CONCLUSION: 1. Minimally complex cyst right mid kidney. 2. Liver mildly enlarged. Cesar Mcfadden MD Abdomen X-Ray 09/17/16 0600 Signed Impressions: Service Date/Time: Saturday, September 17, 2016 05:05 - CONCLUSION: Nonspecific abdomen appearance. Michael Ross MD Head CT 09/15/16 0000 Signed Impressions: Service Date/Time: Thursday, September 15, 2016 10:15 - CONCLUSION: 1. Sizable area of decreased attenuation in the left MCA distribution most consistent with subacute cortical infarct. This there is stable compared to previous MR dated 09/09/16. Sanket Gonzalez MD Central Venous Line 09/15/16 0000 Signed Impressions: Service Date/Time: Thursday, September 15, 2016 00:00 - CONCLUSION: Uncomplicated line placement as above. Wesley Chaudhari MD Abdomen/Pelvis CT 09/15/16 0000 Signed Impressions: Service Date/Time: Thursday, September 15, 2016 17:00 - CONCLUSION: 1. Gaseous distension of the stomach. 2. I do not see evidence for significant colitis. Lowell Gonzalez MD FACR Catheter Placement X-Ray 09/14/16 0000 Signed Impressions: Service Date/Time: Wednesday, September 14, 2016 00:00 - CONCLUSION: Uncomplicated line placement as above. Wesley Chaudhari MD Carotid Artery Ultrasound 09/13/16 0000 Signed Impressions: Service Date/Time: Tuesday, September 13, 2016 16:46 - CONCLUSION: Significant plaque remains evident in the carotid bifurcations. Poor visualization and difficulty velocity sampling of the proximal internal carotid arteries was again encountered. Significant carotid stenosis cannot be excluded. Nonvisualization of the vertebral arteries. Mack Brizuela MD Brain MRI 09/09/16 0000 Signed Impressions: Service Date/Time: August 16:36 - CONCLUSION: 1. Findings demonstrate an acute infarction in the left sylvian region, nonhemorrhagic. 2. Small air-fluid level right maxillary sinus and mild bilateral ethmoid sinus disease. Suresh Diaz MD Renal Ultrasound 09/08/16 0000 Signed Impressions: Service Date/Time: Thursday, September 08, 2016 16:04 - CONCLUSION: Large 6.3 cm cyst lower pole laterally left kidney. No evidence of hydronephrosis or obstructive uropathy.. Christian Cooper MD Physical Exam HEENT: Normocephalic; atraumatic; no jaundice. NECK: Supple. CHEST: CTA, OETT to vent CARDIAC: RRR ABDOMEN: Soft, nondistended, nontender; no hepatosplenomegaly; bowel sounds are present in all four quadrants. OGT with TF EXTREMITIES: Generalized edema. SKIN: BLE cool/dry. PUTTY MIXER: Intubated unresponsive (Elidia Black) Assessment and Plan Plan ASSESSMENT: - Dysphagia/FEN. Patient with known history of coronary artery disease and a recent CABG who also apparently had recent CVA, currently intubated patient also appears to be septic and hypotensive on vasopressors. Palliative care following. Family has decided to pursue EGD with PEG. TF was started, so far tolerating at 20cc/ hr. Nurse reports that he has had issues with high residuals, high gastric output. He previously had gaseous distention of stomach on CT. He does have a hx of DM. Possibly may have some underlying gastroparesis and therefore IR was consulted for G/ J tube placement. Spoke to Dr. Brizuela 09/20, they are unable to place GJ tube until Plavix has been off for 5 days. D/W Dr. Leon, patient has stent and he is unsure if plavix can be held, as per Dr. Cummins, the patient will need to remain on Plavix and ASA to avoid occlusion of stent. Patient with recent stent placement. D/W Dr. Cummins's office- Do not hold Plavix. Called son, Sedrick [place] and discussed that per cardiology, we are not able to hold the plavix and for us to place PEG while on Plavix, the patient is at a high risk for bleeding. He believes that they will most likely proceed, but wants to call his sister and discuss it with her before making final decision. Keep NPO. - High gastric output with gaseous distention of stomach on CT. Abdomen/Pelvis CT (09/15/16)----> 1. Gaseous distension of the stomach. 2. I do not see evidence for significant colitis. Abdomen X-Ray (09/17/16)--- > Nonspecific abdomen appearance. Cont. to have high residuals- TF at 15cc/hr because he is not tolerating this. He would really benefit from G/J tube, but they are unable to place unless the Plavix can be held x 5 days and the patient has recent stent placement so this is likely not possible. Reglan. - Acute ischemic left MCA, ARF, CHF, CAD, HTN, CKD per [facility] PLAN: - Possible EGD with PEG tube placement today (D/W son Sedrick, that we are unable to hold plavix per cardiology and that patient is at an increased risk for bleeding if we place while on Plavix. He believes that they will most likely proceed, but would like to speak this over with his sister prior to making final decision. He will call back as soon as they decide. - NPO - Reglan 5mg IV q8h - Supportive care - Further recommendations to follow based on results of above - Pt seen and examined by Dr. Barahona and myself and this note is written on his behalf (Elidia Black) Physician Comments pateint family wants to hold off on PEG for 1 wk to see how his condition going to be, please call us when they decide to do the PEG thank you (Tomi Barahona MD) Elidia Black Sep 23, 2016 10:18 Tomi Barahona MD Sep 23, 2016 10:48
[2016-09-23] MEDS: fentaNYL DRIP 250 ML IV SCH (10:56)
--- NOTE | 2016-09-23 11:37 | HHI.IDPN ---
Subjective Subjective Remarks Mr. Ferguson is a 66 y/o male with a medical history of CAD status post 6 vessel CABG in 2011, CHF, CAD, hypertension, diabetes mellitus type 2, obesity, and sleep apnea. On 09/07/16, patient underwent cardiac catheterization , he was found to have significant blockage requiring angioplasty and stenting. Post cardiac catheter, patient developed aphasia and right sided hemiparesis. CT of the brain show no acute process. Neurology -Dr. Nguyen consulted. Brain MRI obtained on 09/09/16 showing acute nonhemorrhagic infarction in the left sylvian region. Patient developed respiratory distress and was placed on BiPAP , subsequently intubated and placed on mechanical ventilation. developed ARF, on HD Patient was being treated for aspiration Pneumonia. Intubated September 15 Started on HD Sep 14 Infectious disease following for septic shock, aspiration Pneumonia, confirmed C. difficile colitis. Notes reviewed D/W RN Low grade temps. Tolerating CPAP HD M,W,F. Has liquid stool Copious thick yellow ET secretions Off pressors CT with no colitis. Abnormal LFTs trending down BC negative Has RIJ TLC and vascath Sputum 09/17 with Pseudomonas, resistant Antibiotics Zerbaxa Vanco oral. Zyvox IV Diflucan Tobra nebs Lines RIJ TLC and vascath Past Medical History reviewed Allergies: Coded Allergies: No Known Allergies (Verified , 09/07/16) Objective . Vital Signs Date Time Temp Pulse Resp B/P Pulse Ox O2 Delivery O2 Flow Rate FiO2 09/23/16 10:00 96 09/23/16 08:24 99 40 09/23/16 08:24 40 09/23/16 08:00 40 09/23/16 08:00 100.3 100 24 125/82 97 09/23/16 08:00 99 09/23/16 06:00 93 09/23/16 04:25 100 40 09/23/16 04:00 40 09/23/16 04:00 91 09/23/16 04:00 99.0 91 18 118/65 99 09/23/16 02:00 96 09/23/16 00:02 100 40 09/23/16 00:00 100.1 88 18 104/55 100 09/23/16 00:00 88 09/23/16 00:00 40 09/22/16 22:00 95 09/22/16 20:00 101.8 97 18 100/57 100 09/22/16 20:00 97 09/22/16 20:00 40 09/22/16 19:35 100 40 09/22/16 18:22 99 40 09/22/16 18:00 99 09/22/16 16:00 100.3 97 28 133/57 98 09/22/16 16:00 97 09/22/16 16:00 40 09/22/16 15:51 100 40 09/22/16 14:00 97 09/22/16 12:04 40 09/22/16 12:00 100.0 97 21 127/67 98 09/22/16 12:00 100 40 09/22/16 12:00 93 09/22/16 12:00 40 09/22/16 09/22/16 09/23/16 15:00 23:00 07:00 Intake Total 561 ml 835 ml 155 ml Output Total 3325 ml 155 ml 55 ml Balance -2764 ml 680 ml 100 ml Intake Oral 0 ml 0 ml IV Total 364 ml 670 ml 155 ml Tube Feeding 97 ml 105 ml 0 ml Tube Irrigant 100 ml Other 60 ml 0 ml Output Urine Total 25 ml 5 ml 5 ml Stool Total 300 ml 150 ml 50 ml Hemodialysis 3000 ml . Laboratory Tests Test 09/22/16 09/23/16 04:10 04:35 White Blood Count 17.8 TH/MM3 16.9 TH/MM3 Red Blood Count 3.59 MIL/MM3 3.32 MIL/MM3 Hemoglobin 10.6 GM/DL 9.9 GM/DL Hematocrit 32.2 % 29.4 % Mean Corpuscular Volume 89.6 FL 88.5 FL Mean Corpuscular Hemoglobin 29.5 PG 29.9 PG Mean Corpuscular Hemoglobin 33.0 % 33.8 % Concent Red Cell Distribution Width 15.3 % 15.2 % Platelet Count 283 TH/MM3 268 TH/MM3 Mean Platelet Volume 8.7 FL 8.3 FL Neutrophils (%) (Auto) 74.4 % 75.7 % Lymphocytes (%) (Auto) 6.7 % 6.9 % Monocytes (%) (Auto) 17.0 % 15.6 % Eosinophils (%) (Auto) 1.7 % 1.4 % Basophils (%) (Auto) 0.2 % 0.4 % Neutrophils # (Auto) 13.2 TH/MM3 12.8 TH/MM3 Lymphocytes # (Auto) 1.2 TH/MM3 1.2 TH/MM3 Monocytes # (Auto) 3.0 TH/MM3 2.6 TH/MM3 Eosinophils # (Auto) 0.3 TH/MM3 0.2 TH/MM3 Basophils # (Auto) 0.0 TH/MM3 0.1 TH/MM3 CBC Comment AUTO DIFF AUTO DIFF Differential Comment AUTO DIFF FINAL DIFF CONFIRMED MANUAL Differential Total Cells 100 Counted Neutrophils % (Manual) 80 % Band Neutrophils % 3 % Lymphocytes % 6 % Monocytes % 9 % Neutrophils # (Manual) 14.4 TH/MM3 Metamyelocytes 1 % Myelocytes 1 % Platelet Estimate NORMAL Platelet Morphology Comment NORMAL Laboratory Tests Test 09/22/16 09/23/16 04:10 04:35 Sodium Level 138 MEQ/L 138 MEQ/L Potassium Level 3.5 MEQ/L 3.3 MEQ/L Chloride Level 96 MEQ/L 95 MEQ/L Carbon Dioxide Level 21.9 MEQ/L 24.2 MEQ/L Anion Gap 20 MEQ/L 19 MEQ/L Blood Urea Nitrogen 92 MG/DL 68 MG/DL Creatinine 13.06 MG/DL 10.25 MG/DL Estimat Glomerular Filtration 4 ML/MIN 5 ML/MIN Rate Random Glucose 175 MG/DL 197 MG/DL Calcium Level 8.5 MG/DL 8.9 MG/DL Total Bilirubin 0.7 MG/DL 0.8 MG/DL Aspartate Amino Transf 96 U/L 54 U/L (AST/SGOT) Alanine Aminotransferase 251 U/L 144 U/L (ALT/SGPT) Alkaline Phosphatase 112 U/L 81 U/L Total Creatine Kinase 625 U/L 391 U/L Creatine Kinase MB 1.3 NG/ML 0.9 NG/ML Creatine Kinase MB % 0.2 % 0.2 % Total Protein 8.4 GM/DL 8.6 GM/DL Albumin 3.0 GM/DL 3.6 GM/DL Procalcitonin 2.56 ng/mL Microbiology Date/Time Procedure Status Source Growth 09/21/16 09:30 Aerobic Blood Culture - Preliminary Resulted Blood Peripheral NO GROWTH IN 2 DAYS 09/21/16 09:30 Anaerobic Blood Culture - Preliminary Resulted Blood Peripheral NO GROWTH IN 2 DAYS 09/21/16 09:40 Aerobic Blood Culture - Preliminary Resulted Blood Peripheral NO GROWTH IN 2 DAYS 09/21/16 09:40 Anaerobic Blood Culture - Preliminary Resulted Blood Peripheral NO GROWTH IN 2 DAYS Imaging Liver Ultrasound 09/17/16 1030 Signed Impressions: Service Date/Time: Saturday, September 17, 2016 11:01 - CONCLUSION: 1. Minimally complex cyst right mid kidney. 2. Liver mildly enlarged. Cesar Mcfadden MD Abdomen X-Ray 09/17/16 0600 Signed Impressions: Service Date/Time: Saturday, September 17, 2016 05:05 - CONCLUSION: Nonspecific abdomen appearance. Michael Ross MD Chest X-Ray 09/15/16 1621 Signed Impressions: Service Date/Time: Thursday, September 15, 2016 16:33 - CONCLUSION: 1. Uncomplicated line placement. No evidence of pneumothorax. Wesley Chaudhari MD Head CT 09/15/16 0000 Signed Impressions: Service Date/Time: Thursday, September 15, 2016 10:15 - CONCLUSION: 1. Sizable area of decreased attenuation in the left MCA distribution most consistent with subacute cortical infarct. This there is stable compared to previous MR dated 09/09/16. Sanket Gonzalez MD Central Venous Line 09/15/16 0000 Signed Impressions: Service Date/Time: Thursday, September 15, 2016 00:00 - CONCLUSION: Uncomplicated line placement as above. Wesley Chaudhari MD Abdomen/Pelvis CT 09/15/16 0000 Signed Impressions: Service Date/Time: Thursday, September 15, 2016 17:00 - CONCLUSION: 1. Gaseous distension of the stomach. 2. I do not see evidence for significant colitis. Lowell Gonzalez MD FACR Catheter Placement X-Ray 09/14/16 0000 Signed Impressions: Service Date/Time: Wednesday, September 14, 2016 00:00 - CONCLUSION: Uncomplicated line placement as above. Wesley Chaudhari MD Carotid Artery Ultrasound 09/13/16 0000 Signed Impressions: Service Date/Time: Tuesday, September 13, 2016 16:46 - CONCLUSION: Significant plaque remains evident in the carotid bifurcations. Poor visualization and difficulty velocity sampling of the proximal internal carotid arteries was again encountered. Significant carotid stenosis cannot be excluded. Nonvisualization of the vertebral arteries. Mack Brizuela MD Brain MRI 09/09/16 0000 Signed Impressions: Service Date/Time: August 16:36 - CONCLUSION: 1. Findings demonstrate an acute infarction in the left sylvian region, nonhemorrhagic. 2. Small air-fluid level right maxillary sinus and mild bilateral ethmoid sinus disease. Suresh Diaz MD Renal Ultrasound 09/08/16 0000 Signed Impressions: Service Date/Time: Thursday, September 08, 2016 16:04 - CONCLUSION: Large 6.3 cm cyst lower pole laterally left kidney. No evidence of hydronephrosis or obstructive uropathy.. Christian Cooper MD Physical Exam GENERAL: Obese male patient, sedated, on the vent. Comfortable on CPAP SKIN: No rashes, ecchymoses or lesions. Cool and dry. HEAD: Atraumatic. Normocephalic. No temporal or scalp tenderness. EYES: Pupils equal round and reactive. No scleral icterus. No injection or drainage. ENT: Intubated. Oral mucosae moist NECK: Trachea midline. Supple, nontender, no meningeal signs. Line in neck looks ok CARDIOVASCULAR: Heart sounds audible. RESPIRATORY: Clear to auscultation. Breath sounds equal bilaterally. GASTROINTESTINAL: Abdomen soft, non-tender, nondistended. MUSCULOSKELETAL: Extremities without clubbing, cyanosis, or edema. NEUROLOGICAL: Sedated Psych can not be assessed IV line sites with no evidence of infection. : Guillen in place Assessment & Plan Remarks IMPRESSION Septic shock with multiorgan dysfunction syndrome - BP better Aspiration Pneumonia, tracheobronchitis. - C/S prelim Pseudomonas, resistant Clostridium diff colitis Acute resp failure on vent. Acute metabolic encephalopathy: stroke, sepsis, metabolic. Acute renal failure: meds, sepsis, ATN on HD now. CAD, NV Acute stroke fevers Recs Continue Vanco oral for Cdiff Continue Zerbaxa Continue Zyvox IV (possible MRSA pneumonia will deescalate based on sputum cultures) for now, will dc if no MRSA in final sputum Continue Diflucan Follow C/S Monitor progress Abx will be adjusted once C/S finalized Weaning per CCM D/W Era Magaña MD Sep 23, 2016 11:37
--- NOTE | 2016-09-23 11:48 | HHI.CCPN ---
Subjective Remarks/Hospital Course 66-year-old gentleman with a history of coronary artery disease status post CABG underwent emergent cardiac catheterization by Dr. Cummins. Postprocedure his course is complicated by aphasia and right-sided weakness. 09/08 Patient was on BIPAP 14/7 with FIO2 25%. On Precedex and heparin drips. CT brain showed last night showed no acute process. Impela was removed this morning by Dr. Cummins. T:99.9 Renal function improving with Cr:2.5 from 3.0 hyperkalemic with K 6.1 09/09: Overnight remained on BiPAP predominantly for sleep apnea. Intermittently follows commands. Will check MRI of the brain today. Creatinine slightly worsened to 2.8. Consulted nephrology, hyperkalemia resolved 09/10: Remains on BiPAP, some interval worsening of respiratory status. Patient is more tachypneic chest x-ray shows left lower lobe infiltrate .Currently sedated with 0.5 g per KG per hour of Precedex. I will discontinue Precedex. MRI brain shows acute infarct left sylvian region. Creatinine slightly worse at 3. Low-grade fever Tmax 100.2, send blood and sputum culture and start Zosyn 09/11: Patient was intubated yesterday for progressively worsening respiratory failure, hypoxemia and altered mentation. On ventilator support patient's oxygenation has improved. He moves all extremities do not following commands. Chest x-ray shows no definite infiltrates 09/12: Extubated yesterday tolerating well oxygenation varghese and protecting airway. No fevers. Urine output 3.8 L in 24 hours with creatinine worsening from 3.9 to 4.5 today. Remains aphasic not following commands 09/13: Somnolent, received Ativan for agitation overnight. Urine output 4 L in 24 hours. Labs are pending at this time. Opens eyes to verbal stimulation, remains aphasic and did not follow commands 09/14 Patient appears somnolent. On no sedation. Renal function worse today with Cr: 7.31 from 5.40 and UO: 715ml in 24hrs. T:100.9 this morning. Remains aphasic. 09/15 Patient was placed on Amio drip overnight for Afib with RVR. HD initiated yesterday with removal 2L. He is currently receiving another HD treatment. Tmax 100.9. Patient remains encephalopathic and does not follow commands. TF was held due to high residuals. 09/16 Patient was intubated yesterday for airway protection. On Fentanyl drip for sedation on Neosyn. Tmax 104. C-diff PCR positive. CT abd/pelvis showed no acute process, gaseous distention. 09/17 Patient remains intubated and sedated with Fentanyl. On Neosyn 75 mics. T: 101.8 at 4 am. 09/18 Patient remains sedated and intubated. T:101.1 last night. On Neosyn 60 mics. 09/19 No acute events overnight. Off Neosyn and is on Fentanyl infusion for sedation. T:100.5. Tolerated CPAP x 4 hrs yesterday. Patient was able to open up his eyes off sedation. 09/20 Patient remains sedated with Fentanyl and intubated. T:99.8 last night. WBC trending down. Off Neosyn. For J-tube placement by IR today. 09/21 Patient remains sedated and intubated. T:100.0 last night. s/p HD yesterday with removal 3.5L. 09/22-continues to have low-grade fever. On sedation hold open size moves all extremities do not follow commands. White count stable at 17.8 09/23/16: T 100.3, white count slightly improved 16.9. Neuro exam remains unchanged family has not decided about trach yet wants to wait a few more days Objective Vital Signs Date Time Temp Pulse Resp B/P Pulse Ox O2 Delivery O2 Flow Rate FiO2 09/23/16 10:00 96 09/23/16 08:24 99 40 09/23/16 08:00 100.3 24 125/82 Intake and Output 09/22/16 09/22/16 09/23/16 08:00 16:00 00:00 Intake Total 645 ml 561 ml 835 ml Output Total 30 ml 3325 ml 155 ml Balance 615 ml -2764 ml 680 ml Result Diagram: 09/23/16 0435 09/23/16 0435 Imaging Last Impressions Liver Ultrasound 09/17/16 1030 Signed Impressions: Service Date/Time: Saturday, September 17, 2016 11:01 - CONCLUSION: 1. Minimally complex cyst right mid kidney. 2. Liver mildly enlarged. Cesar Mcfadden MD Abdomen X-Ray 09/17/16 0600 Signed Impressions: Service Date/Time: Saturday, September 17, 2016 05:05 - CONCLUSION: Nonspecific abdomen appearance. Michael Ross MD Chest X-Ray 09/15/16 1621 Signed Impressions: Service Date/Time: Thursday, September 15, 2016 16:33 - CONCLUSION: 1. Uncomplicated line placement. No evidence of pneumothorax. Wesley Chaudhari MD Head CT 09/15/16 0000 Signed Impressions: Service Date/Time: Thursday, September 15, 2016 10:15 - CONCLUSION: 1. Sizable area of decreased attenuation in the left MCA distribution most consistent with subacute cortical infarct. This there is stable compared to previous MR dated 09/09/16. Sanket Gonzalez MD Central Venous Line 09/15/16 0000 Signed Impressions: Service Date/Time: Thursday, September 15, 2016 00:00 - CONCLUSION: Uncomplicated line placement as above. Wesley Chaudhari MD Abdomen/Pelvis CT 09/15/16 0000 Signed Impressions: Service Date/Time: Thursday, September 15, 2016 17:00 - CONCLUSION: 1. Gaseous distension of the stomach. 2. I do not see evidence for significant colitis. Lowell Gonzalez MD FACR Catheter Placement X-Ray 09/14/16 0000 Signed Impressions: Service Date/Time: Wednesday, September 14, 2016 00:00 - CONCLUSION: Uncomplicated line placement as above. Wesley Chaudhari MD Carotid Artery Ultrasound 09/13/16 0000 Signed Impressions: Service Date/Time: Tuesday, September 13, 2016 16:46 - CONCLUSION: Significant plaque remains evident in the carotid bifurcations. Poor visualization and difficulty velocity sampling of the proximal internal carotid arteries was again encountered. Significant carotid stenosis cannot be excluded. Nonvisualization of the vertebral arteries. Mack Brizuela MD Brain MRI 09/09/16 0000 Signed Impressions: Service Date/Time: August 16:36 - CONCLUSION: 1. Findings demonstrate an acute infarction in the left sylvian region, nonhemorrhagic. 2. Small air-fluid level right maxillary sinus and mild bilateral ethmoid sinus disease. Suresh Diaz MD Renal Ultrasound 09/08/16 0000 Signed Impressions: Service Date/Time: Thursday, September 08, 2016 16:04 - CONCLUSION: Large 6.3 cm cyst lower pole laterally left kidney. No evidence of hydronephrosis or obstructive uropathy.. Christian Cooper MD Objective Remarks GENERAL: Well-nourished, well-developed patient intubated and sedated SKIN: Warm and dry. HEAD: Normocephalic. EYES: No scleral icterus. No injection or drainage. ENT: Oral cavity moist. Orally intubated NECK: Supple, trachea midline. No JVD or lymphadenopathy. CARDIOVASCULAR: Regular rate and rhythm without murmurs, gallops, or rubs. RESPIRATORY: Breath sounds equal bilaterally. No accessory muscle use. GASTROINTESTINAL: Abdomen soft, non-tender, nondistended. MUSCULOSKELETAL: No cyanosis, or edema. BACK: Nontender without obvious deformity. EXTREMITIES: Able to open eyes and moves extremities spontaneously however he does not follow commands A/P Problem List: (1) Acute ischemic left MCA stroke ICD Code: I63.512 Status: Acute (2) Acute renal failure ICD Code: N17.9 Status: Acute (3) CHF (congestive heart failure), NYHA class III ICD Code: I50.9 Status: Acute (4) Coronary artery disease involving [place] heart ICD Code: I25.10 Status: Chronic (5) HTN (hypertension) ICD Code: I10 Status: Acute (6) CKD (chronic kidney disease) ICD Code: N18.9 Status: Acute Assessment and Plan ASSESSMENT Acute left MCA stroke Aphasia with right hemiparesis Acute respiratory failure Metabolic encephalopathy NSTEMI Known CAD C-diff colitis Obstructive sleep apnea UTI with enterococcus HCAP Acute on chronic kidney disease Hyperkalemia-resolved DM HTN LEONARD Hyperlipidemia Plan Neuro: -On Fentanyl infusion. Monitor neuro status. Ativan PRN for agitation. Daily sedation vacation -MRI brain 09/09/16-acute left sylvian region infarct. CT brain 09/07: No acute disease. -Repeat CT brain 09/15: Sizable area of decreased attenuation in the left MCA distribution most consistent with subacute cortical infarct -Continue aspirin and Plavix. Neuro was following- Cr. Nguyen. -09/13 EEG: within normal. Pulm: -Continue with vent support keep sat >90% Check CXR in am -Bronchodilators, ICU vent bundle, CPAP trials as khris. Mental status will not permit extubation at this time -Most likely need need trach-family wants to wait few more days before trach-re address early next week. Re intubated on 09/15/16 -(Dr. Leon discussed with patient' daughter Yani regarding need of trach she will discuss it further with her brother Sedrick before making a final decision ) - Palliative care following CV: -Monitor HR and BP keep MAP>65mmHg -Continue with ASA, Plavix. Imdur and Lopressor on hold due to hypotension -Lipitor held for elevated LFT's -s/p cardiac cath 09/07 showed multivessel disease with 2/6 grafts patent, EF 40% . s/p PCI with stents of the saphenous venous graft to the first diagonal artery. -s/p removal Impella 09/08. Cardiology- Dr. Cummins : -Monitor renal function, I/O's, avoid nephrotoxins. -HD initiated 09/14 , renal-Dr. Naidu. . Monitor CK's ( trending down) GI: -On Protonix 40mg -GI is following, PE day -Monitor LFT's ( trending down), Hepatitis profile negative on 09/14 -US Liver: Minimally complex cyst right mid kidney. Liver mildly enlarged. -Continue with TF- Nepro -hold for PEG ID: Leukocytosis.stable C-diff colitis Sputum cx: 09/17 Pseudomonas -Continue abx per ID ( PO Vanco, IVZerbaxa, Zyvox, IV Diflucan). Monitor for signs of infections ( Fever, WBC) -f/u BC x 2 sets -CT abd/pelvis: Gaseous distention, no acute process -KUB abdomen 09/17- non specific bowel gas pattern Heme: -Monitor CBC Endo: -SSI( Medium) with accuchecks for glycemic control, Levemir 5u Q12 GI prophylaxis - on Protonix 40mg Q12 DVT prophylaxis - SCD, Heparin 5000 units sq very 12 Palliative care is following. Lines: Right Vascth placed 09/14, Right IJ CVP placed 09/15 Level 3 Problem Qualifiers (1) Acute renal failure: Qualified Code: N17.0 - Acute renal failure with tubular necrosis Krishna Rodriguez MD Sep 23, 2016 11:48
--- NOTE | 2016-09-23 12:47 | PQ ---
Physician Query Response Document PATIENT: JULIETA VILLALBA : 1950 ADMIT DATE: 09/07/2016 8:10 PM DISCH DATE: RESPONDING PROVIDER #: sjohn QUERY TEXT: Cause and Effect Relationship Please clarify in documentation the relationship, if any, between ACUTE CVA and CARDIAC CAT HETERIZATION Such as: -- Conditions are due to or associated -- Unrelated to each other -- Other, please specify The patient's Clinical Indicators include: PER PROGRESS NOTE 09/09/16: 66-year-old gentleman with a history of coronary artery disease status post CABG underwent emergent c ardiac catheterization by Dr. Cummins. Postprocedure his course is complicated by aphasia and right-s ided weakness. 09/10: MRI brain shows acute infarct left sylvian region. Query created by: Bee Dsouza on 09/22/2016 11:41 AM RESPONSE TEXT: Unrelated to each other Electronically signed by: Krishna Rodriguez MD 09/23/2016 12:42 PM
--- NOTE | 2016-09-23 15:54 | HHI.HCPN ---
Reason for visit a. To assist with evaluation and management of symptoms including: shortness of breath and debility. b. To assist medical decision maker(s) with: better understanding of current medical conditions; weighing benefits/burdens of medical treatment options; making medical treatment decisions. . Subjective/Interval History Patient seen in ICU. He remains in critical condition -intubated, sedated on mechanical ventilation. Facial grimacing and nonpurposeful movement noted to all 4 extremities. Not opening eyes to voice or tactile stimuli. Not following any commands. Continue reporting low-grade fever, Max temperature 100.3. ID -Dr. Mini Becker following. Plan for GJ-tube, however on hold secondary to Plavix use. This has been discussed with cardiology who recommends not withholding Plavix for PEG placement. Patient at high risk for bleeding during procedure. At this time, family is requesting to hold on PEG tube placement until the make a final decision early next week. Tube feedings restarted. Laboratory today WBC 16.9, Hgb 9.9, pl 268. Na 138, K 3.3. BUN/ creatinine 68/10.25. Scheduled for hemodialysis tomorrow. Liver enzymes remain elevated but trending down, AST 54, ALT 144, alkaline phosphatase 81. Chest x-ray today showing hypoinflation with no acute cardiopulmonary process. . Family/friend interactions Case discussed with bedside RN. Family meeting held yesterday by palliative care. Spoke this afternoon with patient's daughter Yani. She reports that family is currently discussing all options for treatment. They will like to allow a few more days for clinical improvement and asking to readdress goals of care on 09/27/16. At this time, family requesting not to proceed with tracheostomy or PEG tube placement until family makes a final decision on this matter. Daughter Yani is an REIMBURSEMENT COORDINATOR in [place], she has a good medical understanding of patient's current condition. Reviewed with Yani images of MRI and CT of the brain, laboratory data, and current treatment plan. Discussed difference between medical extubation and withdrawal of life support. Reviewed CPR, chest compressions, defibrillation given patient's current clinical condition. Encourage Yani to further consider alternate code/no cardiac code, while we await for final goals of care discussion with family. Yani tearful, ongoing emotional support and active listening provided. She verbalized appreciation for my visit and medical update. . Advance Directives Advance Directive Specifics Health Care Surrogate(s): Son Sedrick not sure if patient has completed advance directives. As per [place] statute, healthcare decision-making falls to patient's 3 children. . Documented care wishes: Unclear at this time if advance directives have been completed. . Significant change in goals: Full code at this time. Continue current management while family considers all treatment options. . Objective Vital Signs Date Time Temp Pulse Resp B/P Pulse Ox O2 Delivery O2 Flow Rate FiO2 09/23/16 14:00 87 09/23/16 13:22 96 40 09/23/16 12:00 99.8 92 18 101/59 100 09/23/16 12:00 40 09/23/16 12:00 82 09/23/16 10:00 96 09/23/16 08:24 99 40 09/23/16 08:24 40 09/23/16 08:00 40 09/23/16 08:00 100.3 100 24 125/82 97 09/23/16 08:00 99 09/23/16 06:00 93 09/23/16 04:25 100 40 09/23/16 04:00 40 09/23/16 04:00 91 09/23/16 04:00 99.0 91 18 118/65 99 09/23/16 02:00 96 09/23/16 00:02 100 40 09/23/16 00:00 100.1 88 18 104/55 100 09/23/16 00:00 88 09/23/16 00:00 40 09/22/16 22:00 95 09/22/16 20:00 101.8 97 18 100/57 100 09/22/16 20:00 97 09/22/16 20:00 40 09/22/16 19:35 100 40 09/22/16 18:22 99 40 09/22/16 18:00 99 09/22/16 16:00 100.3 97 28 133/57 98 09/22/16 16:00 97 09/22/16 16:00 40 09/22/16 15:51 100 40 Intake & Output 09/23/16 09/23/16 07:00 19:00 Intake Total 990 ml 608 ml Output Total 210 ml 835 ml Balance 780 ml -227 ml Intake Oral 0 ml IV Total 825 ml 392 ml Tube Feeding 105 ml 116 ml Tube Irrigant 100 ml Other 60 ml Output Urine Total 10 ml 15 ml Stool Total 200 ml 400 ml Gastric Drainage Total 420 ml Physical Exam CONSTITUTIONAL/GENERAL: This is an adequately nourished patient in no acute distress. Sedated, intubated on mechanical ventilation. TUBES/LINES/DRAINS: PIV's, SCDs, Guillen catheter, right IJ dialysis catheter. ETT , OG tube. Rectal tube with moderate amount of watery stool. SKIN: No jaundice, rashes, or lesions. No wounds seen anteriorly. Not diaphoretic. Dry skin. HEAD: Atraumatic. Normocephalic. ENT: Unable to evaluate hearing secondary to clinical condition.. Nose without bleeding or purulent drainage.EET in place. Moderate amount of oral secretions noted. NECK: Trachea midline. Supple. CARDIOVASCULAR: irregular rate and rhythm. RESPIRATORY/CHEST: Symmetric, unlabored. coarse breath sounds anteriorly. Intubated on mechanical ventilation. GASTROINTESTINAL: Abdomen soft, large, round. Bowel sounds hypoactive. GENITOURINARY: Without palpable bladder distension. Guillen catheter in place. MUSCULOSKELETAL: Extremities without clubbing, cyanosis. NEUROLOGICAL: Unresponsive to tactile or verbal stimuli. Not following any commands. Involuntary movement to 4 extremities noted. PSYCHIATRIC: Unable to assess secondary to clinical condition. Appears calm. . Diagnostic Tests Laboratory Laboratory Tests Test 09/21/16 09/21/16 09/22/16 09/22/16 04:00 09:30 04:10 20:30 White Blood Count 17.3 TH/MM3 17.8 TH/MM3 (4.0-11.0) (4.0-11.0) Red Blood Count 3.50 MIL/MM3 3.59 MIL/MM3 (4.50-5.90) (4.50-5.90) Hemoglobin 10.6 GM/DL 10.6 GM/DL (13.0-17.0) (13.0-17.0) Hematocrit 31.0 % 32.2 % (39.0-51.0) (39.0-51.0) Mean Corpuscular Volume 88.6 FL 89.6 FL (80.0-100.0) (80.0-100.0) Mean Corpuscular Hemoglobin 30.2 PG 29.5 PG (27.0-34.0) (27.0-34.0) Mean Corpuscular Hemoglobin 34.1 % 33.0 % Concent (32.0-36.0) (32.0-36.0) Red Cell Distribution Width 15.2 % 15.3 % (11.6-17.2) (11.6-17.2) Platelet Count 271 TH/MM3 283 TH/MM3 (150-450) (150-450) Mean Platelet Volume 9.3 FL 8.7 FL (7.0-11.0) (7.0-11.0) Neutrophils (%) (Auto) 76.1 % 74.4 % (16.0-70.0) (16.0-70.0) Lymphocytes (%) (Auto) 5.8 % 6.7 % (9.0-44.0) (9.0-44.0) Monocytes (%) (Auto) 16.2 % 17.0 % (0.0-8.0) (0.0-8.0) Eosinophils (%) (Auto) 1.4 % (0.0-4.0) 1.7 % (0.0-4.0) Basophils (%) (Auto) 0.5 % (0.0-2.0) 0.2 % (0.0-2.0) Neutrophils # (Auto) 13.1 TH/MM3 13.2 TH/MM3 (1.8-7.7) (1.8-7.7) Lymphocytes # (Auto) 1.0 TH/MM3 1.2 TH/MM3 (1.0-4.8) (1.0-4.8) Monocytes # (Auto) 2.8 TH/MM3 3.0 TH/MM3 (0-0.9) (0-0.9) Eosinophils # (Auto) 0.2 TH/MM3 0.3 TH/MM3 (0-0.4) (0-0.4) Basophils # (Auto) 0.1 TH/MM3 0.0 TH/MM3 (0-0.2) (0-0.2) CBC Comment AUTO DIFF AUTO DIFF Differential Total Cells 100 Counted Neutrophils % (Manual) 62 % (16-70) Band Neutrophils % 12 % (0-6) Lymphocytes % 8 % (9-44) Monocytes % 16 % (0-8) Eosinophils % 2 % (0-4) Neutrophils # (Manual) 12.8 TH/MM3 (1.8-7.7) Differential Comment FINAL DIFF AUTO DIFF MANUAL CONFIRMED Platelet Estimate NORMAL (NORMAL) Platelet Morphology Comment NORMAL (NORMAL) Sodium Level 137 MEQ/L 138 MEQ/L (136-145) (136-145) Potassium Level 3.5 MEQ/L 3.5 MEQ/L (3.5-5.1) (3.5-5.1) Chloride Level 96 MEQ/L 96 MEQ/L (98-107) (98-107) Carbon Dioxide Level 24.4 MEQ/L 21.9 MEQ/L (21.0-32.0) (21.0-32.0) Anion Gap 17 MEQ/L (5-15) 20 MEQ/L (5-15) Blood Urea Nitrogen 74 MG/DL (7-18) 92 MG/DL (7-18) Creatinine 10.96 MG/DL 13.06 MG/DL (0.60-1.30) (0.60-1.30) Estimat Glomerular Filtration 5 ML/MIN (>89) 4 ML/MIN (>89) Rate Random Glucose 183 MG/DL 175 MG/DL (74-106) (74-106) Calcium Level 8.6 MG/DL 8.5 MG/DL (8.5-10.1) (8.5-10.1) Total Bilirubin 0.8 MG/DL 0.7 MG/DL (0.2-1.0) (0.2-1.0) Aspartate Amino Transf 196 U/L (15-37) 96 U/L (15-37) (AST/SGOT) Alanine Aminotransferase 419 U/L (12-78) 251 U/L (12-78) (ALT/SGPT) Alkaline Phosphatase 124 U/L 112 U/L (45-117) (45-117) Total Protein 8.7 GM/DL 8.4 GM/DL (6.4-8.2) (6.4-8.2) Albumin 3.4 GM/DL 3.0 GM/DL (3.4-5.0) (3.4-5.0) Total Creatine Kinase 1104 U/L 625 U/L (39-308) (39-308) Creatine Kinase MB 1.8 NG/ML 1.3 NG/ML (0.5-3.6) (0.5-3.6) Creatine Kinase MB % 0.2 % (0.0-4.0) 0.2 % (0.0-4.0) Procalcitonin 2.56 ng/mL (0.00-0.50) Urine Eosinophils NONE SEEN /HPF (NONE SEEN) Test 09/23/16 04:35 White Blood Count 16.9 TH/MM3 (4.0-11.0) Red Blood Count 3.32 MIL/MM3 (4.50-5.90) Hemoglobin 9.9 GM/DL (13.0-17.0) Hematocrit 29.4 % (39.0-51.0) Mean Corpuscular Volume 88.5 FL (80.0-100.0) Mean Corpuscular Hemoglobin 29.9 PG (27.0-34.0) Mean Corpuscular Hemoglobin 33.8 % Concent (32.0-36.0) Red Cell Distribution Width 15.2 % (11.6-17.2) Platelet Count 268 TH/MM3 (150-450) Mean Platelet Volume 8.3 FL (7.0-11.0) Neutrophils (%) (Auto) 75.7 % (16.0-70.0) Lymphocytes (%) (Auto) 6.9 % (9.0-44.0) Monocytes (%) (Auto) 15.6 % (0.0-8.0) Eosinophils (%) (Auto) 1.4 % (0.0-4.0) Basophils (%) (Auto) 0.4 % (0.0-2.0) Neutrophils # (Auto) 12.8 TH/MM3 (1.8-7.7) Lymphocytes # (Auto) 1.2 TH/MM3 (1.0-4.8) Monocytes # (Auto) 2.6 TH/MM3 (0-0.9) Eosinophils # (Auto) 0.2 TH/MM3 (0-0.4) Basophils # (Auto) 0.1 TH/MM3 (0-0.2) CBC Comment AUTO DIFF Differential Total Cells 100 Counted Neutrophils % (Manual) 80 % (16-70) Band Neutrophils % 3 % (0-6) Lymphocytes % 6 % (9-44) Monocytes % 9 % (0-8) Neutrophils # (Manual) 14.4 TH/MM3 (1.8-7.7) Metamyelocytes 1 % (0-1) Myelocytes 1 % (0-0) Differential Comment FINAL DIFF MANUAL Platelet Estimate NORMAL (NORMAL) Platelet Morphology Comment NORMAL (NORMAL) Sodium Level 138 MEQ/L (136-145) Potassium Level 3.3 MEQ/L (3.5-5.1) Chloride Level 95 MEQ/L (98-107) Carbon Dioxide Level 24.2 MEQ/L (21.0-32.0) Anion Gap 19 MEQ/L (5-15) Blood Urea Nitrogen 68 MG/DL (7-18) Creatinine 10.25 MG/DL (0.60-1.30) Estimat Glomerular Filtration 5 ML/MIN (>89) Rate Random Glucose 197 MG/DL (74-106) Calcium Level 8.9 MG/DL (8.5-10.1) Total Bilirubin 0.8 MG/DL (0.2-1.0) Aspartate Amino Transf 54 U/L (15-37) (AST/SGOT) Alanine Aminotransferase 144 U/L (12-78) (ALT/SGPT) Alkaline Phosphatase 81 U/L (45-117) Total Creatine Kinase 391 U/L (39-308) Creatine Kinase MB 0.9 NG/ML (0.5-3.6) Creatine Kinase MB % 0.2 % (0.0-4.0) Total Protein 8.6 GM/DL (6.4-8.2) Albumin 3.6 GM/DL (3.4-5.0) Result Diagram: 09/23/16 0435 09/23/16 0435 Microbiology Microbiology Date/Time Procedure Status Source Growth 09/21/16 09:30 Aerobic Blood Culture - Preliminary Resulted Blood Peripheral NO GROWTH IN 2 DAYS 09/21/16 09:30 Anaerobic Blood Culture - Preliminary Resulted Blood Peripheral NO GROWTH IN 2 DAYS 09/21/16 09:40 Aerobic Blood Culture - Preliminary Resulted Blood Peripheral NO GROWTH IN 2 DAYS 09/21/16 09:40 Anaerobic Blood Culture - Preliminary Resulted Blood Peripheral NO GROWTH IN 2 DAYS Imaging Last 24 hours Impressions Chest X-Ray 09/23/16 0600 Signed Impressions: Service Date/Time: September 05:21 - CONCLUSION: 1. Hypoinflation with no acute cardiopulmonary process. 2. Accounting for low lung volumes, heart size is borderline prominent but a well compensated. Dejon Virgen MD Procedures * 09/15/06 -intubation * 09/14/16 -dialysis catheter placement . * 09/11/16 -extubation. * 09/10/16 -intubation. * 09/07/16 -cardiac catheter with angioplasty and stent placement. . Assessment and Plan Disease Oriented Problem List: (1) Acute tubular necrosis (2) Acute ischemic left MCA stroke (3) CAD (coronary artery disease) of bypass graft (4) CHF (congestive heart failure), NYHA class II (5) Liver function failure Symptom Scale: (1) Shortness of breath 0-10 Scale: Unable to quantify Comment: Reintubated 09/15/06. On mechanical ventilation. (2) Debility 0-10 Scale: Unable to quantify Comment: Secondary to CVA, acute complications, hospitalization. Pertinent Non-Medical Issues Psychosocial: . Has 2 children. Living independently prior to this hospitalization. Spiritual: Jehov[employer] Witness. Legal: Unknown if advance directives have been completed. Ethical issues impacting care: Unknown if advance directives have been completed. . Important Contacts Max Birmingham [phone]. Son Vaibhav Salgado. Daughter Yani. . Prognosis Mr. Ferguson is a 66 y/o male with an adhesive significant cardiac history to include stenting in 2010, CAD status post 6 vessel CABG in 2011, and angioplasty and stenting in September 06. He was found to have significant blockage requiring angioplasty and stenting. 2 of 6 grafts are currently patent. Post cardiac catheter, patient developed aphasia and right sided hemiparesis. MRI of the brain showing acute nonhemorrhagic infarct. Patient was intubated and subsequently extubated secondary to respiratory failure and altered mental status. Vertical condition remains the same, he is obtunded and not following any commands. Patient with history of CKD now with acute tubular necrosis requiring renal replacement therapy. His prognosis is poor for a meaningful neurological recovery even if he is to survive this hospitalization given his age, severity of cardiac disease, complications to include stroke, and multiple comorbidities. He is at a very high risk for further decline, complications and . . Code Status: Full Code Plan * CODE STATUS: Full code. Risks, benefits and limitations of CPR readdressed with patient's family on 09/22/16 given patient clinical condition. * MEDICAL DECISION-MAKING: Patient incapacitated to make healthcare decisions secondary to clinical condition, unclear if he will regain. Son Sedrick not sure if patient has completed advance directives. As per [place] statute, healthcare decision-making falls to patient's 3 children. * GOALS OF CARE: 09/23/16 - Spoke with patient's daughter Yani. She reports that family is currently discussing all treatment options. They will like to allow a few more days for clinical improvement and are asking to readdress goals of care on 09/27/16. At this time, family requesting NOT to proceed with tracheostomy or PEG tube placement until family makes a final decision on that matter. Patient currently on day #9 of intubation. Daughter Yani is an REIMBURSEMENT COORDINATOR in [place], she has a good medical understanding of patient's current condition. Reviewed with Yani images of MRI and CT of the brain, laboratory data, and current treatment plan. Discussed difference between medical extubation and withdrawal of life support. Reviewed CPR, chest compressions, defibrillation given patient's current clinical condition. Encourage Yani to further consider alternate code/no cardiac code, while we await for final goals of care decision by family. * Ongoing emotional support and active listening provided to aundrea Lomeli. * SYMPTOMS: == Shortness of breath, patient recently intubated and extubated. Worsening clinical condition. Reintubated 09/15/16, remains on mechanical ventilation. == Debility, secondary to CVA, acute events and hospitalization. = = Anxiety, patient appears calm. * Case discussed with bedside RN. * Palliative care contact information has been provided to patient's family. * Palliative care will continue to follow-up to assist with symptom management and to further evaluate goals of care as the clinical course evolves. . Time Spent Total Floor Time (mins): 40 (Total time to include review medical records, physical exam, conversation with daughter, and case discussion with bedside RN.) >50% Counseling/Coord of Care: Yes Attestation To help prompt me to consider important information that might be impacting today's encounter and assessment, information from prior notes written by myself or my colleagues may have been "brought forward" into today's note. My signature on this note, however, is an attestation that I personally performed the exam, history, and/or decision-making noted today, and, unless otherwise indicated, the interactions with patient, family, and staff as well as the review of records all occurred today. I also attest that the listed assessment and stated plan reflect my best clinical judgment today based on the combination of historical information, prior notes, and today's exam/ interactions. When time spent is documented, it refers only to time spent today by the signer, or if indicated, combined time spent today by collaborating physician/nurse practitioner. Simran Sorto Sep 23, 2016 15:54
--- NOTE | 2016-09-23 17:45 | HHI.NPPN ---
Subjective History of Present Illness 66-year-old male with history of coronary artery disease status post CABG, osteoarthritis, diabetes, hyperlipidemia who was admitted there with unstable angina and underwent heart catheterization found to have significant blockages requiring stent and impella device, he has acute renal failure. Additional Remarks Patient on Vent Objective Data Data 09/22/16 09/23/16 19:00 07:00 Intake Total 561 ml 990 ml Output Total 3325 ml 210 ml Balance -2764 ml 780 ml Intake Oral 0 ml IV Total 364 ml 825 ml Tube Feeding 97 ml 105 ml Tube Irrigant 100 ml Other 60 ml Output Urine Total 25 ml 10 ml Stool Total 300 ml 200 ml Hemodialysis 3000 ml Vital Signs Date Time Temp Pulse Resp B/P Pulse Ox O2 Delivery O2 Flow Rate FiO2 09/23/16 16:24 96 40 09/23/16 16:00 79 09/23/16 16:00 40 09/23/16 16:00 99.8 79 18 97/60 100 09/23/16 14:00 87 09/23/16 13:22 96 40 09/23/16 12:00 99.8 92 18 101/59 100 09/23/16 12:00 40 09/23/16 12:00 82 09/23/16 10:00 96 09/23/16 08:24 99 40 09/23/16 08:24 40 09/23/16 08:00 40 09/23/16 08:00 100.3 100 24 125/82 97 09/23/16 08:00 99 09/23/16 06:00 93 09/23/16 04:25 100 40 09/23/16 04:00 40 09/23/16 04:00 91 09/23/16 04:00 99.0 91 18 118/65 99 09/23/16 02:00 96 09/23/16 00:02 100 40 09/23/16 00:00 100.1 88 18 104/55 100 09/23/16 00:00 88 09/23/16 00:00 40 09/22/16 22:00 95 09/22/16 20:00 101.8 97 18 100/57 100 09/22/16 20:00 97 09/22/16 20:00 40 09/22/16 19:35 100 40 09/22/16 18:22 99 40 09/22/16 18:00 99 -: 09/23/16 0435 09/23/16 0435 Physical Exam General Appearance: Well Developed, Well Nourished Pulmonary Resp Exam: Crackles, Rhonchi, Decreased Bases, Diminished Breath Sounds Cardiology CV Exam: Regular, Normal Sinus Rhythm Gastrointestinal/Abdomen GI Exam: Soft, Non-Tender, Bowel Sounds Present, Distended Extremeties Extremities Exam: Moderate Edema, Pitting Edema, Dependent Edema Neurologic Neuro Exam: Sedated Assessment/Plan Problem List: (1) Acute renal failure Plan: off vasopressor BP better on vent intubated He has elevation in the creatinine and he is oliguric. Renal failure on hemodialysis HD on M,W,F HD done yesterday UF 3 L (2) Hyperkalemia Plan: Resolved (3) Chronic kidney disease Plan: He has stage III chronic kidney disease due to diabetic (4) CHF (congestive heart failure), NYHA class III Plan: Continue to monitor for improvement (5) Coronary artery disease involving [place] heart Plan: Review his bypass and stents (6) Hypertension, essential, benign Plan: Monitor blood pressure (7) Diabetes mellitus, type II Plan: Monitor blood glucose (8) UTI (lower urinary tract infection) Plan: Meropenem (9) CVA (cerebral vascular accident) Plan: remain unresponsive moves left side more (10) Need for prophylactic vaccination and inoculation against influenza (11) Clostridium difficile infection Plan: on PO Vanco Problem Qualifiers (1) Acute renal failure: Qualified Code: N17.0 - Acute renal failure with tubular necrosis (2) Chronic kidney disease: Qualified Code: N18.4 - Chronic kidney disease, stage 4 (severe) Marisol Naidu MD Sep 23, 2016 17:45
[2016-09-23] MEDS: FLUCONAZOLE 400 MG PREMIX BAG 200 ML IV SCH (20:38)
[2016-09-24] VITALS (19 sets, daily range): BP systolic 99–167; BP diastolic 55–70; PULSE 74–105; RESP 18–22; TEMP 98.9–100.4; O2SAT 96–100
[2016-09-24] MEDS: INSULIN NovoLIN REGULAR SUPPLEMENTAL SCALE SQ SCH ×6 (01:00→20:36)
[2016-09-24] MEDS: CHLORHEXIDINE GLUCONATE 2 % 1 PACK (2 CLOTHS) TOP SCH (04:00)
[2016-09-24] MEDS: LINEZOLID 600 MG PREMIX 300 ML IV SCH (04:56)
[2016-09-24] MEDS: CEFTOLOZANE IV SCH ×6 (04:56→20:35)
[2016-09-24] MEDS: SODIUM CHLORIDE IV SCH ×6 (04:56→20:35)
[2016-09-24] MEDS: TAZOBACTAM IV SCH ×6 (04:56→20:35)
[2016-09-24] MEDS: METOCLOPRAMIDE HCL 10 MG/2 ML VIAL IV PUSH SCH ×3 (04:57→22:42)
[2016-09-24] MEDS: fentaNYL DRIP 250 ML IV SCH (04:58)
[2016-09-24 06:03] LABS: AUTOMATED NEUTROPHIL # 13.2 TH/MM3 (1.8-7.7); BASOPHIL % 0.2 % (0.0-2.0); EOSINOPHIL # 0.3 TH/MM3 (0-0.4); EOSINOPHIL % 1.9 % (0.0-4.0); HEMATOCRIT 29.2 % (39.0-51.0); HEMO FLAGS DIFF FINAL; LYMPH % 6.3 % (9.0-44.0); MEAN CELL VOLUME 89.2 FL (80.0-100.0); MEAN CORPUSCULAR HEMOGLOBIN 30.2 PG (27.0-34.0); MEAN CORPUSCULAR HGB CONC 33.8 % (32.0-36.0); MONO % 9.9 % (0.0-8.0); NEUT % 81.7 % (16.0-70.0); PLATELET COUNT 255 TH/MM3 (150-450); RED BLOOD COUNT 3.27 MIL/MM3 (4.50-5.90); RED CELL DISTRIBUTION WIDTH 15.2 % (11.6-17.2); WHITE BLOOD COUNT 16.2 TH/MM3 (4.0-11.0)
--- NOTE | 2016-09-24 06:40 | RADRPT ---
EXAM DATE/TIME: 09/24/2016 05:05 [facility] COMPARISON: CHEST SINGLE AP, September 23, 2016, 5:21. INDICATIONS : Evaluate for respiratory disease. MEDICAL HISTORY : Stroke. Hypertension Cardiovascular disease. Diabetes SURGICAL HISTORY : CABG. ENCOUNTER: Subsequent ACUITY: 2 weeks PAIN SCORE: Non-responsive. LOCATION: chest FINDINGS: Endotracheal tube tip well above the [place]. Gastric tube traverses the [id number]. Right centra l line tubes stable in position. Interval development of a non-consolidative infiltrate in the infra hilar right lower lung and retrocardiac left lower lung. Both hemidiaphragms remain discernible. Th e heart is normal size. Intact sternal wire sutures. CONCLUSION: Interval development of non-consolidative infiltrates in both lower lungs. Suresh Diaz MD on September 24, 2016 at 6:37 Board Certified Radiologist. This report was verified electronically.
[2016-09-24 06:48] LABS: ALKALINE PHOSPHATASE 66 U/L (45-117); ALT (GPT) 101 U/L (12-78); ANION GAP 19 MEQ/L (5-15); AST (GOT) 44 U/L (15-37); BICARBONATE 22.7 MEQ/L (21.0-32.0); BLOOD UREA NITROGEN 88 MG/DL (7-18); CHLORIDE 95 MEQ/L (98-107); GLOMERULAR FILTRATION RATE 4 ML/MIN (>89); POTASSIUM 3.3 MEQ/L (3.5-5.1); SODIUM (NA) 137 MEQ/L (136-145); TOTAL BILIRUBIN ADULT 0.7 MG/DL (0.2-1.0)
--- NOTE | 2016-09-24 08:10 | HHI.CCPN ---
Subjective Remarks/Hospital Course 66-year-old gentleman with a history of coronary artery disease status post CABG underwent emergent cardiac catheterization by Dr. Cummins. Postprocedure his course is complicated by aphasia and right-sided weakness. 09/08 Patient was on BIPAP 14/7 with FIO2 25%. On Precedex and heparin drips. CT brain showed last night showed no acute process. Impela was removed this morning by Dr. Cummins. T:99.9 Renal function improving with Cr:2.5 from 3.0 hyperkalemic with K 6.1 09/09: Overnight remained on BiPAP predominantly for sleep apnea. Intermittently follows commands. Will check MRI of the brain today. Creatinine slightly worsened to 2.8. Consulted nephrology, hyperkalemia resolved 09/10: Remains on BiPAP, some interval worsening of respiratory status. Patient is more tachypneic chest x-ray shows left lower lobe infiltrate .Currently sedated with 0.5 g per KG per hour of Precedex. I will discontinue Precedex. MRI brain shows acute infarct left sylvian region. Creatinine slightly worse at 3. Low-grade fever Tmax 100.2, send blood and sputum culture and start Zosyn 09/11: Patient was intubated yesterday for progressively worsening respiratory failure, hypoxemia and altered mentation. On ventilator support patient's oxygenation has improved. He moves all extremities do not following commands. Chest x-ray shows no definite infiltrates 09/12: Extubated yesterday tolerating well oxygenation varghese and protecting airway. No fevers. Urine output 3.8 L in 24 hours with creatinine worsening from 3.9 to 4.5 today. Remains aphasic not following commands 09/13: Somnolent, received Ativan for agitation overnight. Urine output 4 L in 24 hours. Labs are pending at this time. Opens eyes to verbal stimulation, remains aphasic and did not follow commands 09/14 Patient appears somnolent. On no sedation. Renal function worse today with Cr: 7.31 from 5.40 and UO: 715ml in 24hrs. T:100.9 this morning. Remains aphasic. 09/15 Patient was placed on Amio drip overnight for Afib with RVR. HD initiated yesterday with removal 2L. He is currently receiving another HD treatment. Tmax 100.9. Patient remains encephalopathic and does not follow commands. TF was held due to high residuals. 09/16 Patient was intubated yesterday for airway protection. On Fentanyl drip for sedation on Neosyn. Tmax 104. C-diff PCR positive. CT abd/pelvis showed no acute process, gaseous distention. 09/17 Patient remains intubated and sedated with Fentanyl. On Neosyn 75 mics. T: 101.8 at 4 am. 09/18 Patient remains sedated and intubated. T:101.1 last night. On Neosyn 60 mics. 09/19 No acute events overnight. Off Neosyn and is on Fentanyl infusion for sedation. T:100.5. Tolerated CPAP x 4 hrs yesterday. Patient was able to open up his eyes off sedation. 09/20 Patient remains sedated with Fentanyl and intubated. T:99.8 last night. WBC trending down. Off Neosyn. For J-tube placement by IR today. 09/21 Patient remains sedated and intubated. T:100.0 last night. s/p HD yesterday with removal 3.5L. 09/22-continues to have low-grade fever. On sedation hold open size moves all extremities do not follow commands. White count stable at 17.8 09/23/16: T 100.3, white count slightly improved 16.9. Neuro exam remains unchanged family has not decided about trach yet wants to wait a few more days 09/24 No acute events overnight. T;100.4 last night. On Fentanyl infusion for sedation. TF held for high residuals. For HD today. Objective Vital Signs Date Time Temp Pulse Resp B/P Pulse Ox O2 Delivery O2 Flow Rate FiO2 09/24/16 06:00 77 09/24/16 04:01 98 40 09/24/16 04:00 99.1 18 105/63 Intake and Output 09/23/16 09/23/16 09/24/16 08:00 16:00 00:00 Intake Total 155 ml 608 ml 1025 ml Output Total 55 ml 835 ml 300 ml Balance 100 ml -227 ml 725 ml Result Diagram: 09/24/16 0530 09/24/16 0530 Other Results Laboratory Tests Test 09/24/16 05:30 White Blood Count 16.2 TH/MM3 Red Blood Count 3.27 MIL/MM3 Hemoglobin 9.9 GM/DL Hematocrit 29.2 % Mean Corpuscular Volume 89.2 FL Mean Corpuscular Hemoglobin 30.2 PG Mean Corpuscular Hemoglobin 33.8 % Concent Red Cell Distribution Width 15.2 % Platelet Count 255 TH/MM3 Mean Platelet Volume 8.9 FL Neutrophils (%) (Auto) 81.7 % Lymphocytes (%) (Auto) 6.3 % Monocytes (%) (Auto) 9.9 % Eosinophils (%) (Auto) 1.9 % Basophils (%) (Auto) 0.2 % Neutrophils # (Auto) 13.2 TH/MM3 Lymphocytes # (Auto) 1.0 TH/MM3 Monocytes # (Auto) 1.6 TH/MM3 Eosinophils # (Auto) 0.3 TH/MM3 Basophils # (Auto) 0.0 TH/MM3 CBC Comment DIFF FINAL Differential Comment Sodium Level 137 MEQ/L Potassium Level 3.3 MEQ/L Chloride Level 95 MEQ/L Carbon Dioxide Level 22.7 MEQ/L Anion Gap 19 MEQ/L Blood Urea Nitrogen 88 MG/DL Creatinine 12.03 MG/DL Estimat Glomerular Filtration 4 ML/MIN Rate Random Glucose 148 MG/DL Calcium Level 8.9 MG/DL Total Bilirubin 0.7 MG/DL Aspartate Amino Transf 44 U/L (AST/SGOT) Alanine Aminotransferase 101 U/L (ALT/SGPT) Alkaline Phosphatase 66 U/L Total Protein 8.5 GM/DL Albumin 3.2 GM/DL Imaging Last Impressions Chest X-Ray 09/24/16 0600 Signed Impressions: Service Date/Time: Saturday, September 24, 2016 05:05 - CONCLUSION: Interval development of non-consolidative infiltrates in both lower lungs. Suresh Diaz MD Liver Ultrasound 09/17/16 1030 Signed Impressions: Service Date/Time: Saturday, September 17, 2016 11:01 - CONCLUSION: 1. Minimally complex cyst right mid kidney. 2. Liver mildly enlarged. Cesar Mcfadden MD Abdomen X-Ray 09/17/16 0600 Signed Impressions: Service Date/Time: Saturday, September 17, 2016 05:05 - CONCLUSION: Nonspecific abdomen appearance. Michael Ross MD Head CT 09/15/16 0000 Signed Impressions: Service Date/Time: Thursday, September 15, 2016 10:15 - CONCLUSION: 1. Sizable area of decreased attenuation in the left MCA distribution most consistent with subacute cortical infarct. This there is stable compared to previous MR dated 09/09/16. Sanket Gonzalez MD Central Venous Line 09/15/16 0000 Signed Impressions: Service Date/Time: Thursday, September 15, 2016 00:00 - CONCLUSION: Uncomplicated line placement as above. Wesley Chaudhari MD Abdomen/Pelvis CT 09/15/16 0000 Signed Impressions: Service Date/Time: Thursday, September 15, 2016 17:00 - CONCLUSION: 1. Gaseous distension of the stomach. 2. I do not see evidence for significant colitis. Lowell Gonzalez MD FACR Catheter Placement X-Ray 09/14/16 0000 Signed Impressions: Service Date/Time: Wednesday, September 14, 2016 00:00 - CONCLUSION: Uncomplicated line placement as above. Wesley Chaudhari MD Carotid Artery Ultrasound 09/13/16 0000 Signed Impressions: Service Date/Time: Tuesday, September 13, 2016 16:46 - CONCLUSION: Significant plaque remains evident in the carotid bifurcations. Poor visualization and difficulty velocity sampling of the proximal internal carotid arteries was again encountered. Significant carotid stenosis cannot be excluded. Nonvisualization of the vertebral arteries. Mack Brizuela MD Brain MRI 09/09/16 0000 Signed Impressions: Service Date/Time: August 16:36 - CONCLUSION: 1. Findings demonstrate an acute infarction in the left sylvian region, nonhemorrhagic. 2. Small air-fluid level right maxillary sinus and mild bilateral ethmoid sinus disease. Suresh Diaz MD Renal Ultrasound 09/08/16 0000 Signed Impressions: Service Date/Time: Thursday, September 08, 2016 16:04 - CONCLUSION: Large 6.3 cm cyst lower pole laterally left kidney. No evidence of hydronephrosis or obstructive uropathy.. Christian Cooper MD Objective Remarks GENERAL: Well-nourished, well-developed patient intubated and sedated SKIN: Warm and dry. HEAD: Normocephalic. EYES: No scleral icterus. No injection or drainage. ENT: Oral cavity moist. Orally intubated NECK: Supple, trachea midline. No JVD or lymphadenopathy. CARDIOVASCULAR: Regular rate and rhythm without murmurs, gallops, or rubs. RESPIRATORY: Breath sounds equal bilaterally. No accessory muscle use. GASTROINTESTINAL: Abdomen soft, non-tender, nondistended. MUSCULOSKELETAL: No cyanosis, or edema. BACK: Nontender without obvious deformity. EXTREMITIES: Able to open eyes and moves extremities spontaneously however he does not follow commands A/P Problem List: (1) Acute ischemic left MCA stroke ICD Code: I63.512 Status: Acute (2) Acute renal failure ICD Code: N17.9 Status: Acute (3) CHF (congestive heart failure), NYHA class III ICD Code: I50.9 Status: Acute (4) Coronary artery disease involving [place] heart ICD Code: I25.10 Status: Chronic (5) HTN (hypertension) ICD Code: I10 Status: Acute (6) CKD (chronic kidney disease) ICD Code: N18.9 Status: Acute Assessment and Plan ASSESSMENT Acute left MCA stroke Aphasia with right hemiparesis Acute respiratory failure Metabolic encephalopathy NSTEMI Known CAD C-diff colitis Obstructive sleep apnea UTI with enterococcus HCAP Acute on chronic kidney disease Hyperkalemia-resolved DM HTN LEONARD Hyperlipidemia Plan Neuro: -On Fentanyl infusion. Monitor neuro status. Ativan PRN for agitation. Daily sedation vacation -MRI brain 09/09/16-acute left sylvian region infarct. CT brain 09/07: No acute disease. -Repeat CT brain 09/15: Sizable area of decreased attenuation in the left MCA distribution most consistent with subacute cortical infarct -Continue aspirin and Plavix. Neuro was following- Cr. Nguyen. -09/13 EEG: within normal. Pulm: -Continue with vent support keep sat >90% Check CXR in am -Bronchodilators, ICU vent bundle, CPAP trials as khris. Mental status will not permit extubation at this time -Most likely need need trach-family wants to wait few more days before trach-re address early next week. Re intubated on 09/15/16 -Palliative care following CV: -Monitor HR and BP keep MAP>65mmHg -Continue with ASA, Plavix. Imdur and Lopressor on hold due to hypotension -Lipitor held for elevated LFT's -s/p cardiac cath 09/07 showed multivessel disease with 2/6 grafts patent, EF 40% . s/p PCI with stents of the saphenous venous graft to the first diagonal artery. -s/p removal Impella 09/08. Cardiology- Dr. Cummins : -Monitor renal function, I/O's, avoid nephrotoxins. -HD initiated 09/14 , renal-Dr. Naidu. . Monitor CK's ( trending down) GI: -On Protonix 40mg -GI is following, day -Monitor LFT's ( trending down), Hepatitis profile negative on 09/14 -US Liver: Minimally complex cyst right mid kidney. Liver mildly enlarged. -Continue with TF- Nepro advance to goal rate ID: Leukocytosis.stable C-diff colitis Sputum cx: 09/17 Pseudomonas -Continue abx per ID ( PO Vanco, IV Zerbaxa, Zyvox, IV Diflucan, Tobra nebs). Monitor for signs of infections ( Fever, WBC) -f/u BC x 2 sets 09/21: NGTD -CT abd/pelvis: Gaseous distention, no acute process -KUB abdomen 09/17- non specific bowel gas pattern Heme: -Monitor CBC Endo: -SSI( Medium) with accuchecks for glycemic control, Levemir 5u Q12 GI prophylaxis - on Protonix 40mg Q12 DVT prophylaxis - SCD, Heparin 5000 units sq very 12 Palliative care is following. Lines: Right Vascth placed 09/14, Right IJ CVP placed 09/15 Level 3 Problem Qualifiers (1) Acute renal failure: Qualified Code: N17.0 - Acute renal failure with tubular necrosis Leroy Urena MD Sep 24, 2016 08:10
[2016-09-24] MEDS: ARTIFICIAL TEARS OPTH OINT 3.5 APPLIC/3.5 GM TUBO EACH EYE SCH ×2 (08:16→20:33)
[2016-09-24] MEDS: DOCUSATE SODIUM 100 MG/10 ML UDC PO SCH ×2 (08:17→20:30)
[2016-09-24] MEDS: INSULIN DETEMIR 100 UNITS/ML VIAL SQ SCH ×2 (08:17→20:31)
[2016-09-24] MEDS: SENNOSIDES SYRUP 8.8 MG/5 ML CUP PO SCH (08:17)
[2016-09-24] MEDS: CHLORHEXIDINE 0.12% (ORAL KIT) 15 ML CUP MT SCH ×2 (08:17→20:34)
[2016-09-24] MEDS: HEPARIN SODIUM - SQ 10,000 UNITS/ML VIAL SQ SCH ×2 (08:17→20:32)
[2016-09-24] MEDS: CLOPIDOGREL 75 MG TAB PO SCH (08:18)
[2016-09-24] MEDS: ASPIRIN 81 MG CHEW TAB CHEW SCH (08:18)
[2016-09-24] MEDS: PANTOPRAZOLE SODIUM 40 MG VIAL IV PUSH SCH ×2 (08:18→20:32)
[2016-09-24] MEDS: VANCOMYCIN 500 MG VIAL (FOR ORAL USE ONLY) PO SCH ×4 (08:18→20:32)
[2016-09-24] MEDS: SODIUM CHLORIDE 0.9% FLUSH 5 ML FLUSH IV FLUSH SCH ×2 (08:18→20:33)
[2016-09-24] MEDS: SODIUM CHLORIDE 0.9% FLUSH 5 ML FLUSH IVF SCH (08:19)
[2016-09-24] MEDS: SODIUM CHLOR 0.9% 1000 ML INJ 1,000 ML IV SCH (09:07)
[2016-09-24] MEDS: RESP: TOBRAMYCIN SULFATE 300 MG/5 ML NEB NEB SCH ×2 (09:16→19:41)
--- NOTE | 2016-09-24 11:44 | HHI.HCPN ---
Reason for visit a. To assist with evaluation and management of symptoms including: shortness of breath and debility. b. To assist medical decision maker(s) with: better understanding of current medical conditions; weighing benefits/burdens of medical treatment options; making medical treatment decisions. . Subjective/Interval History Patient seen in ICU. He remains in critical condition -intubated, sedated on mechanical ventilation. Nonpurposeful movement noted to all 4 extremities. Not opening eyes to voice or tactile stimuli. Not following any commands. Continue reporting low-grade fever, Max temperature 100.4. ID -Dr. Mini Becker following. Stable blood pressure. GJ-tube/trach on hold at this time pending family decision. Tube feedings held secondary to high residuals. Patient currently undergoing hemodialysis. Chest x-ray today showing interval development of non-consolidative infiltrates in both lower lungs. Laboratory today WBC 6 important to, Hgb 9.9, platelet count 255. Sodium 137, potassium 3.3, BUN/creatinine 88/12.03. LFTs remain mildly elevated, trending down. AST 44, ALT 101, alkaline phosphatase 66. Blood culture 09/21/16 with no growth in 3 days thus far. . Family/friend interactions No family at bedside. TC to max Dubose and left message in . Palliative care to f/u. . Advance Directives Living Will: Never completed Health Care Surrogate: Never completed Durable Power of Electrophonic Engineer: Never completed Advance Directive Specifics Health Care Surrogate(s): Max Dubose not sure if patient has completed advance directives. As per [place] statute, healthcare decision-making falls to patient's 3 children. . Documented care wishes: No advance directives or living will completed. . Significant change in goals: Full code at this time. Continue current management while family considers all treatment options. . Objective Vital Signs Date Time Temp Pulse Resp B/P Pulse Ox O2 Delivery O2 Flow Rate FiO2 09/24/16 10:00 83 09/24/16 08:46 100 40 09/24/16 08:00 35 09/24/16 08:00 78 09/24/16 08:00 99.1 78 18 118/58 100 09/24/16 06:00 77 09/24/16 04:01 98 40 09/24/16 04:00 99.1 76 18 105/63 99 09/24/16 04:00 35 09/24/16 04:00 76 09/24/16 02:00 74 09/24/16 01:11 98 40 09/24/16 00:00 99.3 77 18 115/61 100 09/24/16 00:00 78 09/24/16 00:00 35 09/23/16 22:00 75 09/23/16 22:00 98 40 09/23/16 20:17 98 40 09/23/16 20:00 100.4 81 18 106/57 100 09/23/16 20:00 40 09/23/16 20:00 81 09/23/16 18:00 81 09/23/16 16:24 96 40 09/23/16 16:00 79 09/23/16 16:00 40 09/23/16 16:00 99.8 79 18 97/60 100 09/23/16 14:00 87 09/23/16 13:22 96 40 09/23/16 12:00 99.8 92 18 101/59 100 09/23/16 12:00 40 09/23/16 12:00 82 Intake & Output 09/24/16 09/24/16 07:00 19:00 Intake Total 1460 ml Output Total 350 ml Balance 1110 ml IV Total 956 ml Tube Feeding 194 ml Other 310 ml Output Urine Total 50 ml Stool Total 300 ml Physical Exam CONSTITUTIONAL/GENERAL: This is an adequately nourished patient in no acute distress. Sedated, intubated on mechanical ventilation. TUBES/LINES/DRAINS: PIV's, SCDs, Guillen catheter, right IJ dialysis catheter. ETT , OG tube. Rectal tube with moderate amount of watery stool. SKIN: No jaundice, rashes, or lesions. No wounds seen anteriorly. Not diaphoretic. Dry skin. HEAD: Atraumatic. Normocephalic. ENT: Unable to evaluate hearing secondary to clinical condition. Nose without bleeding or purulent drainage. ETT in place. Moderate amount of oral secretions noted. CARDIOVASCULAR: irregular rate and rhythm. RESPIRATORY/CHEST: Symmetric, unlabored. coarse breath sounds anteriorly. Intubated on mechanical ventilation. GASTROINTESTINAL: Abdomen soft, large, round. Bowel sounds hypoactive. Tube feeding will help. GENITOURINARY: Without palpable bladder distension. Guillen catheter in place. MUSCULOSKELETAL: Extremities without clubbing, cyanosis. NEUROLOGICAL: Unresponsive to tactile or verbal stimuli. Not following any commands. Involuntary movement to 4 extremities noted. PSYCHIATRIC: Unable to assess secondary to clinical condition. Appears calm. . Diagnostic Tests Laboratory Laboratory Tests Test 09/22/16 09/22/16 09/23/16 09/24/16 04:10 20:30 04:35 05:30 White Blood Count 17.8 TH/MM3 16.9 TH/MM3 16.2 TH/MM3 (4.0-11.0) (4.0-11.0) (4.0-11.0) Red Blood Count 3.59 MIL/MM3 3.32 MIL/MM3 3.27 MIL/MM3 (4.50-5.90) (4.50-5.90) (4.50-5.90) Hemoglobin 10.6 GM/DL 9.9 GM/DL 9.9 GM/DL (13.0-17.0) (13.0-17.0) (13.0-17.0) Hematocrit 32.2 % 29.4 % 29.2 % (39.0-51.0) (39.0-51.0) (39.0-51.0) Mean Corpuscular Volume 89.6 FL 88.5 FL 89.2 FL (80.0-100.0) (80.0-100.0) (80.0-100.0) Mean Corpuscular Hemoglobin 29.5 PG 29.9 PG 30.2 PG (27.0-34.0) (27.0-34.0) (27.0-34.0) Mean Corpuscular Hemoglobin 33.0 % 33.8 % 33.8 % Concent (32.0-36.0) (32.0-36.0) (32.0-36.0) Red Cell Distribution Width 15.3 % 15.2 % 15.2 % (11.6-17.2) (11.6-17.2) (11.6-17.2) Platelet Count 283 TH/MM3 268 TH/MM3 255 TH/MM3 (150-450) (150-450) (150-450) Mean Platelet Volume 8.7 FL 8.3 FL 8.9 FL (7.0-11.0) (7.0-11.0) (7.0-11.0) Neutrophils (%) (Auto) 74.4 % 75.7 % 81.7 % (16.0-70.0) (16.0-70.0) (16.0-70.0) Lymphocytes (%) (Auto) 6.7 % 6.9 % 6.3 % (9.0-44.0) (9.0-44.0) (9.0-44.0) Monocytes (%) (Auto) 17.0 % 15.6 % 9.9 % (0.0-8.0) (0.0-8.0) (0.0-8.0) Eosinophils (%) (Auto) 1.7 % (0.0-4.0) 1.4 % (0.0-4.0) 1.9 % (0.0-4.0) Basophils (%) (Auto) 0.2 % (0.0-2.0) 0.4 % (0.0-2.0) 0.2 % (0.0-2.0) Neutrophils # (Auto) 13.2 TH/MM3 12.8 TH/MM3 13.2 TH/MM3 (1.8-7.7) (1.8-7.7) (1.8-7.7) Lymphocytes # (Auto) 1.2 TH/MM3 1.2 TH/MM3 1.0 TH/MM3 (1.0-4.8) (1.0-4.8) (1.0-4.8) Monocytes # (Auto) 3.0 TH/MM3 2.6 TH/MM3 1.6 TH/MM3 (0-0.9) (0-0.9) (0-0.9) Eosinophils # (Auto) 0.3 TH/MM3 0.2 TH/MM3 0.3 TH/MM3 (0-0.4) (0-0.4) (0-0.4) Basophils # (Auto) 0.0 TH/MM3 0.1 TH/MM3 0.0 TH/MM3 (0-0.2) (0-0.2) (0-0.2) CBC Comment AUTO DIFF AUTO DIFF DIFF FINAL Differential Comment AUTO DIFF FINAL DIFF CONFIRMED MANUAL Sodium Level 138 MEQ/L 138 MEQ/L 137 MEQ/L (136-145) (136-145) (136-145) Potassium Level 3.5 MEQ/L 3.3 MEQ/L 3.3 MEQ/L (3.5-5.1) (3.5-5.1) (3.5-5.1) Chloride Level 96 MEQ/L 95 MEQ/L 95 MEQ/L (98-107) (98-107) (98-107) Carbon Dioxide Level 21.9 MEQ/L 24.2 MEQ/L 22.7 MEQ/L (21.0-32.0) (21.0-32.0) (21.0-32.0) Anion Gap 20 MEQ/L (5-15) 19 MEQ/L (5-15) 19 MEQ/L (5-15) Blood Urea Nitrogen 92 MG/DL (7-18) 68 MG/DL (7-18) 88 MG/DL (7-18) Creatinine 13.06 MG/DL 10.25 MG/DL 12.03 MG/DL (0.60-1.30) (0.60-1.30) (0.60-1.30) Estimat Glomerular Filtration 4 ML/MIN (>89) 5 ML/MIN (>89) 4 ML/MIN (>89) Rate Random Glucose 175 MG/DL 197 MG/DL 148 MG/DL (74-106) (74-106) (74-106) Calcium Level 8.5 MG/DL 8.9 MG/DL 8.9 MG/DL (8.5-10.1) (8.5-10.1) (8.5-10.1) Total Bilirubin 0.7 MG/DL 0.8 MG/DL 0.7 MG/DL (0.2-1.0) (0.2-1.0) (0.2-1.0) Aspartate Amino Transf 96 U/L (15-37) 54 U/L (15-37) 44 U/L (15-37) (AST/SGOT) Alanine Aminotransferase 251 U/L (12-78) 144 U/L (12-78) 101 U/L (12-78) (ALT/SGPT) Alkaline Phosphatase 112 U/L 81 U/L (45-117) 66 U/L (45-117) (45-117) Total Creatine Kinase 625 U/L 391 U/L (39-308) (39-308) Creatine Kinase MB 1.3 NG/ML 0.9 NG/ML (0.5-3.6) (0.5-3.6) Creatine Kinase MB % 0.2 % (0.0-4.0) 0.2 % (0.0-4.0) Total Protein 8.4 GM/DL 8.6 GM/DL 8.5 GM/DL (6.4-8.2) (6.4-8.2) (6.4-8.2) Albumin 3.0 GM/DL 3.6 GM/DL 3.2 GM/DL (3.4-5.0) (3.4-5.0) (3.4-5.0) Procalcitonin 2.56 ng/mL (0.00-0.50) Urine Eosinophils NONE SEEN /HPF (NONE SEEN) Differential Total Cells 100 Counted Neutrophils % (Manual) 80 % (16-70) Band Neutrophils % 3 % (0-6) Lymphocytes % 6 % (9-44) Monocytes % 9 % (0-8) Neutrophils # (Manual) 14.4 TH/MM3 (1.8-7.7) Metamyelocytes 1 % (0-1) Myelocytes 1 % (0-0) Platelet Estimate NORMAL (NORMAL) Platelet Morphology Comment NORMAL (NORMAL) Result Diagram: 09/24/16 0530 09/24/16 0530 Imaging Last 24 hours Impressions Chest X-Ray 09/24/16 0600 Signed Impressions: Service Date/Time: Saturday, September 24, 2016 05:05 - CONCLUSION: Interval development of non-consolidative infiltrates in both lower lungs. Suresh Diaz MD Procedures * 09/15/06 -intubation * 09/14/16 -dialysis catheter placement . * 09/11/16 -extubation. * 09/10/16 -intubation. * 09/07/16 -cardiac catheter with angioplasty and stent placement. . Assessment and Plan Disease Oriented Problem List: (1) Acute tubular necrosis (2) Acute ischemic left MCA stroke (3) CAD (coronary artery disease) of bypass graft (4) CHF (congestive heart failure), NYHA class II (5) Liver function failure Symptom Scale: (1) Shortness of breath 0-10 Scale: Unable to quantify Comment: Reintubated 09/15/06. On mechanical ventilation. (2) Debility 0-10 Scale: Unable to quantify Comment: Secondary to CVA, acute complications, hospitalization. Pertinent Non-Medical Issues Psychosocial: . Has 2 children. Living independently prior to this hospitalization. Spiritual: Nondenominational. Legal: Unknown if advance directives have been completed. Ethical issues impacting care: Unknown if advance directives have been completed. . Important Contacts Max Birmingham [phone]. Son Vaibhav Abarca Daughter Yani. . Prognosis Mr. Ferguson is a 66 y/o male with an adhesive significant cardiac history to include stenting in 2010, CAD status post 6 vessel CABG in 2011, and angioplasty and stenting in September 06. He was found to have significant blockage requiring angioplasty and stenting. 2 of 6 grafts are currently patent. Post cardiac catheter, patient developed aphasia and right sided hemiparesis. MRI of the brain showing acute nonhemorrhagic infarct. Patient was intubated and subsequently extubated secondary to respiratory failure and altered mental status. Vertical condition remains the same, he is obtunded and not following any commands. Patient with history of CKD now with acute tubular necrosis requiring renal replacement therapy. His prognosis is poor for a meaningful neurological recovery even if he is to survive this hospitalization given his age, severity of cardiac disease, complications to include stroke, and multiple comorbidities. He is at a very high risk for further decline, complications and . . Code Status: Full Code Plan * CODE STATUS: Full code. Risks, benefits and limitations of CPR readdressed with patient's family on 09/23/16 given patient clinical condition. * MEDICAL DECISION-MAKING: Patient incapacitated to make healthcare decisions secondary to clinical condition, unclear if he will regain. Max Dubose not sure if patient has completed advance directives. As per [place] statute, healthcare decision-making falls to patient's 3 children. * GOALS OF CARE: 09/24/16 - Family currently discussing all treatment options. They will like to allow a few more days for clinical improvement and are asking to readdress goals of care on 09/27/16. At this time, family requesting NOT to proceed with tracheostomy or PEG tube placement until family makes a final decision on that matter. Patient currently on day #10 of intubation. * SYMPTOMS: == Shortness of breath, patient recently intubated and extubated. Worsening clinical condition. Reintubated 09/15/16, remains on mechanical ventilation. == Debility, secondary to CVA, acute events and hospitalization. = = Anxiety, patient appears calm. * Case discussed with Dr. Urena and bedside RN. * Palliative care contact information has been provided to patient's family. * Palliative care will continue to follow-up to assist with symptom management and to further evaluate goals of care as the clinical course evolves. . Time Spent Total Floor Time (mins): 30 (Total time to include review of medical records, physical exam, case discussion with Dr. Urena, case discussion with bedside RN and Dr. Layne from palliative care. Several attempts at contacting patient's son Sedrick via telephone.) >50% Counseling/Coord of Care: Yes Attestation To help prompt me to consider important information that might be impacting today's encounter and assessment, information from prior notes written by myself or my colleagues may have been "brought forward" into today's note. My signature on this note, however, is an attestation that I personally performed the exam, history, and/or decision-making noted today, and, unless otherwise indicated, the interactions with patient, family, and staff as well as the review of records all occurred today. I also attest that the listed assessment and stated plan reflect my best clinical judgment today based on the combination of historical information, prior notes, and today's exam/ interactions. When time spent is documented, it refers only to time spent today by the signer, or if indicated, combined time spent today by collaborating physician/nurse practitioner. Simran Sorto Sep 24, 2016 11:44
[2016-09-24] MEDS: SODIUM CHLOR 0.9% 1000 ML INJ 1,000 ML IV PRN (12:25)
[2016-09-24] MEDS: HEPARIN SODIUM - IV 10,000 UNITS/10 ML VIAL PRN (12:26)
[2016-09-24] MEDS: GENTAMICIN SULFATE (DIALYSIS USE ONLY) 20 MG/2 ML VIAL IV PRN (12:27)
--- NOTE | 2016-09-24 14:37 | HHI.IDPN ---
Subjective Subjective Remarks Mr. Ferguson is a 66 y/o male with a medical history of CAD status post 6 vessel CABG in 2011, CHF, CAD, hypertension, diabetes mellitus type 2, obesity, and sleep apnea. On 09/07/16, patient underwent cardiac catheterization , he was found to have significant blockage requiring angioplasty and stenting. Post cardiac catheter, patient developed aphasia and right sided hemiparesis. CT of the brain show no acute process. Neurology -Dr. Nguyen consulted. Brain MRI obtained on 09/09/16 showing acute nonhemorrhagic infarction in the left sylvian region. Patient developed respiratory distress and was placed on BiPAP , subsequently intubated and placed on mechanical ventilation. developed ARF, on HD Patient was being treated for aspiration Pneumonia. Intubated September 15 Started on HD Sep 14 Infectious disease following for septic shock, aspiration Pneumonia, confirmed C. difficile colitis. Delayed entry patient seen at 10 am. Notes reviewed D/W RN No fevers. Tolerating CPAP HD M,W,F. Has liquid stool Copious thick yellow ET secretions Off pressors CT with no colitis. Abnormal LFTs trending down BC negative Has RIJ TLC and vascath Sputum / with Pseudomonas, resistant Antibiotics Zerbaxa Vanco oral. Zyvox IV Diflucan Tobra nebs Lines RIJ TLC and vascath Past Medical History reviewed Allergies: Coded Allergies: No Known Allergies (Verified , 09/07/16) Objective . Vital Signs Date Time Temp Pulse Resp B/P Pulse Ox O2 Delivery O2 Flow Rate FiO2 09/24/16 12:00 98.9 83 21 167/70 99 09/24/16 12:00 83 09/24/16 12:00 35 09/24/16 11:46 40 09/24/16 11:46 99 40 09/24/16 10:00 83 09/24/16 08:46 100 40 09/24/16 08:00 35 09/24/16 08:00 78 09/24/16 08:00 99.1 78 18 118/58 100 09/24/16 06:00 77 09/24/16 04:01 98 40 09/24/16 04:00 99.1 76 18 105/63 99 09/24/16 04:00 35 09/24/16 04:00 76 09/24/16 02:00 74 09/24/16 01:11 98 40 3/10/17 00:00 99.3 77 18 115/61 100 09/24/16 00:00 78 09/24/16 00:00 35 09/23/16 22:00 75 09/23/16 22:00 98 40 09/23/16 20:17 98 40 09/23/16 20:00 100.4 81 18 106/57 100 09/23/16 20:00 40 09/23/16 20:00 81 09/23/16 18:00 81 09/23/16 16:24 96 40 09/23/16 16:00 79 09/23/16 16:00 40 09/23/16 16:00 99.8 79 18 97/60 100 09/23/16 09/23/16 09/24/16 15:00 23:00 07:00 Intake Total 608 ml 1025 ml 435 ml Output Total 835 ml 300 ml 50 ml Balance -227 ml 725 ml 385 ml IV Total 392 ml 607 ml 349 ml Tube Feeding 116 ml 168 ml 26 ml Tube Irrigant 100 ml Other 250 ml 60 ml Output Urine Total 15 ml 50 ml 0 ml Stool Total 400 ml 250 ml 50 ml Gastric Drainage Total 420 ml . Laboratory Tests Test 09/23/16 09/24/16 04:35 05:30 White Blood Count 16.9 TH/MM3 16.2 TH/MM3 Red Blood Count 3.32 MIL/MM3 3.27 MIL/MM3 Hemoglobin 9.9 GM/DL 9.9 GM/DL Hematocrit 29.4 % 29.2 % Mean Corpuscular Volume 88.5 FL 89.2 FL Mean Corpuscular Hemoglobin 29.9 PG 30.2 PG Mean Corpuscular Hemoglobin 33.8 % 33.8 % Concent Red Cell Distribution Width 15.2 % 15.2 % Platelet Count 268 TH/MM3 255 TH/MM3 Mean Platelet Volume 8.3 FL 8.9 FL Neutrophils (%) (Auto) 75.7 % 81.7 % Lymphocytes (%) (Auto) 6.9 % 6.3 % Monocytes (%) (Auto) 15.6 % 9.9 % Eosinophils (%) (Auto) 1.4 % 1.9 % Basophils (%) (Auto) 0.4 % 0.2 % Neutrophils # (Auto) 12.8 TH/MM3 13.2 TH/MM3 Lymphocytes # (Auto) 1.2 TH/MM3 1.0 TH/MM3 Monocytes # (Auto) 2.6 TH/MM3 1.6 TH/MM3 Eosinophils # (Auto) 0.2 TH/MM3 0.3 TH/MM3 Basophils # (Auto) 0.1 TH/MM3 0.0 TH/MM3 CBC Comment AUTO DIFF DIFF FINAL Differential Total Cells 100 Counted Neutrophils % (Manual) 80 % Band Neutrophils % 3 % Lymphocytes % 6 % Monocytes % 9 % Neutrophils # (Manual) 14.4 TH/MM3 Metamyelocytes 1 % Myelocytes 1 % Differential Comment FINAL DIFF MANUAL Platelet Estimate NORMAL Platelet Morphology Comment NORMAL Laboratory Tests Test 09/23/16 09/24/16 04:35 05:30 Sodium Level 138 MEQ/L 137 MEQ/L Potassium Level 3.3 MEQ/L 3.3 MEQ/L Chloride Level 95 MEQ/L 95 MEQ/L Carbon Dioxide Level 24.2 MEQ/L 22.7 MEQ/L Anion Gap 19 MEQ/L 19 MEQ/L Blood Urea Nitrogen 68 MG/DL 88 MG/DL Creatinine 10.25 MG/DL 12.03 MG/DL Estimat Glomerular Filtration 5 ML/MIN 4 ML/MIN Rate Random Glucose 197 MG/DL 148 MG/DL Calcium Level 8.9 MG/DL 8.9 MG/DL Total Bilirubin 0.8 MG/DL 0.7 MG/DL Aspartate Amino Transf 54 U/L 44 U/L (AST/SGOT) Alanine Aminotransferase 144 U/L 101 U/L (ALT/SGPT) Alkaline Phosphatase 81 U/L 66 U/L Total Creatine Kinase 391 U/L Creatine Kinase MB 0.9 NG/ML Creatine Kinase MB % 0.2 % Total Protein 8.6 GM/DL 8.5 GM/DL Albumin 3.6 GM/DL 3.2 GM/DL Imaging Liver Ultrasound 09/17/16 1030 Signed Impressions: Service Date/Time: Saturday, September 17, 2016 11:01 - CONCLUSION: 1. Minimally complex cyst right mid kidney. 2. Liver mildly enlarged. Cesar Mcfadden MD Abdomen X-Ray 09/17/16 0600 Signed Impressions: Service Date/Time: Saturday, September 17, 2016 05:05 - CONCLUSION: Nonspecific abdomen appearance. Michael Ross MD Chest X-Ray 09/15/16 1621 Signed Impressions: Service Date/Time: Thursday, September 15, 2016 16:33 - CONCLUSION: 1. Uncomplicated line placement. No evidence of pneumothorax. Wesley Chaudhari MD Head CT 09/15/16 0000 Signed Impressions: Service Date/Time: Thursday, September 15, 2016 10:15 - CONCLUSION: 1. Sizable area of decreased attenuation in the left MCA distribution most consistent with subacute cortical infarct. This there is stable compared to previous MR dated 09/09/16. Sanket Gonzalez MD Central Venous Line 09/15/16 0000 Signed Impressions: Service Date/Time: Thursday, September 15, 2016 00:00 - CONCLUSION: Uncomplicated line placement as above. Wesley Chaudhari MD Abdomen/Pelvis CT 09/15/16 0000 Signed Impressions: Service Date/Time: Thursday, September 15, 2016 17:00 - CONCLUSION: 1. Gaseous distension of the stomach. 2. I do not see evidence for significant colitis. Lowell Gonzalez MD FACR Catheter Placement X-Ray 09/14/16 0000 Signed Impressions: Service Date/Time: Wednesday, September 14, 2016 00:00 - CONCLUSION: Uncomplicated line placement as above. Wesley Chaudhari MD Carotid Artery Ultrasound 09/13/16 0000 Signed Impressions: Service Date/Time: Tuesday, September 13, 2016 16:46 - CONCLUSION: Significant plaque remains evident in the carotid bifurcations. Poor visualization and difficulty velocity sampling of the proximal internal carotid arteries was again encountered. Significant carotid stenosis cannot be excluded. Nonvisualization of the vertebral arteries. Mack Brizuela MD Brain MRI 09/09/16 0000 Signed Impressions: Service Date/Time: August 16:36 - CONCLUSION: 1. Findings demonstrate an acute infarction in the left sylvian region, nonhemorrhagic. 2. Small air-fluid level right maxillary sinus and mild bilateral ethmoid sinus disease. Suresh Diaz MD Renal Ultrasound 09/08/16 0000 Signed Impressions: Service Date/Time: Thursday, September 08, 2016 16:04 - CONCLUSION: Large 6.3 cm cyst lower pole laterally left kidney. No evidence of hydronephrosis or obstructive uropathy.. Christian Cooper MD Physical Exam GENERAL: Obese male patient, sedated, on the vent. Comfortable on CPAP SKIN: No rashes, ecchymoses or lesions. Cool and dry. HEAD: Atraumatic. Normocephalic. No temporal or scalp tenderness. EYES: Pupils equal round and reactive. No scleral icterus. No injection or drainage. ENT: Intubated. Oral mucosae moist NECK: Trachea midline. Supple, nontender, no meningeal signs. Line in neck looks ok CARDIOVASCULAR: Heart sounds audible. RESPIRATORY: Clear to auscultation. Breath sounds equal bilaterally. GASTROINTESTINAL: Abdomen soft, non-tender, nondistended. MUSCULOSKELETAL: Extremities without clubbing, cyanosis, or edema. NEUROLOGICAL: Sedated Psych can not be assessed IV line sites with no evidence of infection. : Guillen in place Assessment & Plan Remarks IMPRESSION Septic shock with multiorgan dysfunction syndrome - BP better Aspiration Pneumonia, tracheobronchitis. - C/S prelim Pseudomonas, resistant Clostridium diff colitis Acute resp failure on vent. Acute metabolic encephalopathy: stroke, sepsis, metabolic. Acute renal failure: meds, sepsis, ATN on HD now. CAD, SD Acute stroke fevers Recs Continue Vanco oral for Cdiff Continue Zerbaxa IV DC Zyvox IV DC Diflucan Follow C/S Monitor progress Weaning per CCM D/W RN covering for me this weekend. Era Becker MD Sep 24, 2016 14:37
--- NOTE | 2016-09-24 15:57 | HHI.NPPN ---
Subjective History of Present Illness 66-year-old male with history of coronary artery disease status post CABG, osteoarthritis, diabetes, hyperlipidemia who was admitted there with unstable angina and underwent heart catheterization found to have significant blockages requiring stent and impella device, he has acute renal failure. Additional Remarks Patient on Vent Objective Data Data 09/23/16 09/24/16 19:00 07:00 Intake Total 608 ml 1460 ml Output Total 835 ml 350 ml Balance -227 ml 1110 ml IV Total 392 ml 956 ml Tube Feeding 116 ml 194 ml Tube Irrigant 100 ml Other 310 ml Output Urine Total 15 ml 50 ml Stool Total 400 ml 300 ml Gastric Drainage Total 420 ml Vital Signs Date Time Temp Pulse Resp B/P Pulse Ox O2 Delivery O2 Flow Rate FiO2 09/24/16 14:00 96 09/24/16 12:00 98.9 83 21 167/70 99 09/24/16 12:00 83 09/24/16 12:00 35 09/24/16 11:46 40 09/24/16 11:46 99 40 09/24/16 10:00 83 09/24/16 08:46 100 40 09/24/16 08:00 35 09/24/16 08:00 78 09/24/16 08:00 99.1 78 18 118/58 100 09/24/16 06:00 77 09/24/16 04:01 98 40 09/24/16 04:00 99.1 76 18 105/63 99 09/24/16 04:00 35 09/24/16 04:00 76 09/24/16 02:00 74 09/24/16 01:11 98 40 09/24/16 00:00 99.3 77 18 115/61 100 09/24/16 00:00 78 09/24/16 00:00 35 09/23/16 22:00 75 09/23/16 22:00 98 40 09/23/16 20:17 98 40 09/23/16 20:00 100.4 81 18 106/57 100 09/23/16 20:00 40 09/23/16 20:00 81 09/23/16 18:00 81 09/23/16 16:24 96 40 09/23/16 16:00 79 09/23/16 16:00 40 09/23/16 16:00 99.8 79 18 97/60 100 -: 09/24/1652909/24/16529 Physical Exam General Appearance: Well Developed, Well Nourished Pulmonary Resp Exam: Crackles, Rhonchi, Decreased Bases, Diminished Breath Sounds Cardiology CV Exam: Regular, Normal Sinus Rhythm Gastrointestinal/Abdomen GI Exam: Soft, Non-Tender, Bowel Sounds Present, Distended Extremeties Extremities Exam: Moderate Edema, Pitting Edema, Dependent Edema Neurologic Neuro Exam: Sedated Assessment/Plan Problem List: (1) Acute renal failure Plan: off vasopressor BP better on vent intubated He has elevation in the creatinine and he is oliguric. Renal failure on hemodialysis HD on M,W,F HD today 2.7 L K 3.3 replace has Pneumonia ceftaroline/tazobactam Pseudomonas (2) Hyperkalemia Plan: Resolved (3) Chronic kidney disease Plan: He has stage III chronic kidney disease due to diabetic (4) CHF (congestive heart failure), NYHA class III Plan: Continue to monitor for improvement (5) Coronary artery disease involving [place] heart Plan: had bypass and stents (6) Hypertension, essential, benign Plan: Monitor blood pressure (7) Diabetes mellitus, type II Plan: Monitor blood glucose (8) UTI (lower urinary tract infection) (9) CVA (cerebral vascular accident) Plan: remain unresponsive moves left side more (10) Need for prophylactic vaccination and inoculation against influenza (11) Clostridium difficile infection Plan: on PO Vanco Problem Qualifiers (1) Acute renal failure: Qualified Code: N17.0 - Acute renal failure with tubular necrosis (2) Chronic kidney disease: Qualified Code: N18.4 - Chronic kidney disease, stage 4 (severe) Marisol Naidu MD Sep 24, 2016 15:57 Marisol Naidu MD Sep 24, 2016 15:57
[2016-09-24] MEDS ORDERED: POTASSIUM CHLOR 20 MEQ PREMIX 100 ML IV ONE (16:00)
[2016-09-25] VITALS (20 sets, daily range): BP systolic 84–129; BP diastolic 57–75; PULSE 102–114; RESP 5–32; TEMP 99–100.3; O2SAT 95–100
[2016-09-25] MEDS: INSULIN NovoLIN REGULAR SUPPLEMENTAL SCALE SQ SCH ×6 (01:00→20:53)
[2016-09-25] MEDS: CHLORHEXIDINE GLUCONATE 2 % 1 PACK (2 CLOTHS) TOP SCH (03:57)
[2016-09-25] MEDS: TAZOBACTAM IV SCH ×6 (05:19→20:54)
[2016-09-25] MEDS: CEFTOLOZANE IV SCH ×6 (05:19→20:54)
[2016-09-25] MEDS: SODIUM CHLORIDE IV SCH ×6 (05:19→20:54)
[2016-09-25] MEDS: METOCLOPRAMIDE HCL 10 MG/2 ML VIAL IV PUSH SCH ×3 (05:19→21:00)
[2016-09-25 05:48] LABS: AUTOMATED NEUTROPHIL # 15.7 TH/MM3 (1.8-7.7); BASOPHIL % 0.2 % (0.0-2.0); EOSINOPHIL # 0.3 TH/MM3 (0-0.4); EOSINOPHIL % 1.4 % (0.0-4.0); HEMO FLAGS DIFF FINAL; LYMPH % 4.8 % (9.0-44.0); LYMPHOCYTE # 0.9 TH/MM3 (1.0-4.8); MEAN CELL VOLUME 88.7 FL (80.0-100.0); MEAN CORPUSCULAR HEMOGLOBIN 29.5 PG (27.0-34.0); MEAN CORPUSCULAR HGB CONC 33.3 % (32.0-36.0); MONO % 8.9 % (0.0-8.0); NEUT % 84.7 % (16.0-70.0); PLATELET COUNT 306 TH/MM3 (150-450); RED BLOOD COUNT 3.49 MIL/MM3 (4.50-5.90); RED CELL DISTRIBUTION WIDTH 15.3 % (11.6-17.2); WHITE BLOOD COUNT 18.6 TH/MM3 (4.0-11.0)
[2016-09-25 06:13] LABS: ALKALINE PHOSPHATASE 84 U/L (45-117); ALT (GPT) 81 U/L (12-78); ANION GAP 19 MEQ/L (5-15); AST (GOT) 34 U/L (15-37); BICARBONATE 23.1 MEQ/L (21.0-32.0); BLOOD UREA NITROGEN 68 MG/DL (7-18); CHLORIDE 93 MEQ/L (98-107); GLOMERULAR FILTRATION RATE 5 ML/MIN (>89); POTASSIUM 3.7 MEQ/L (3.5-5.1); SODIUM (NA) 135 MEQ/L (136-145); TOTAL BILIRUBIN ADULT 0.6 MG/DL (0.2-1.0)
[2016-09-25] MEDS: VANCOMYCIN 500 MG VIAL (FOR ORAL USE ONLY) PO SCH ×4 (08:13→21:22)
[2016-09-25] MEDS: PANTOPRAZOLE SODIUM 40 MG VIAL IV PUSH SCH ×2 (08:13→20:52)
[2016-09-25] MEDS: SENNOSIDES SYRUP 8.8 MG/5 ML CUP PO SCH (08:14)
[2016-09-25] MEDS: INSULIN DETEMIR 100 UNITS/ML VIAL SQ SCH ×2 (08:14→20:54)
[2016-09-25] MEDS: CLOPIDOGREL 75 MG TAB PO SCH (08:14)
[2016-09-25] MEDS: ASPIRIN 81 MG CHEW TAB CHEW SCH (08:14)
[2016-09-25] MEDS: HEPARIN SODIUM - SQ 10,000 UNITS/ML VIAL SQ SCH ×2 (08:14→20:53)
[2016-09-25] MEDS: DOCUSATE SODIUM 100 MG/10 ML UDC PO SCH ×2 (08:14→20:53)
[2016-09-25] MEDS: SODIUM CHLORIDE 0.9% FLUSH 5 ML FLUSH IV FLUSH SCH ×2 (08:15→20:52)
[2016-09-25] MEDS: SODIUM CHLORIDE 0.9% FLUSH 5 ML FLUSH IVF SCH (08:15)
[2016-09-25] MEDS: ARTIFICIAL TEARS OPTH OINT 3.5 APPLIC/3.5 GM TUBO EACH EYE SCH ×2 (08:16→21:02)
[2016-09-25] MEDS: CHLORHEXIDINE 0.12% (ORAL KIT) 15 ML CUP MT SCH ×2 (08:18→20:55)
[2016-09-25] MEDS: RESP: TOBRAMYCIN SULFATE 300 MG/5 ML NEB NEB SCH ×2 (08:30→20:14)
[2016-09-25] MEDS: SODIUM CHLOR 0.9% 1000 ML INJ 1,000 ML IV SCH (09:07)
--- NOTE | 2016-09-25 11:44 | HHI.NPPN ---
Subjective History of Present Illness 66-year-old male with history of coronary artery disease status post CABG, osteoarthritis, diabetes, hyperlipidemia who was admitted there with unstable angina and underwent heart catheterization found to have significant blockages requiring stent and impella device, he has acute renal failure. Additional Remarks Patient on Vent Objective Data Data 09/24/16 09/25/16 19:00 07:00 Intake Total 729 ml 1443 ml Output Total 2915 ml 845 ml Balance -2186 ml 598 ml Intake Oral 0 ml IV Total 494 ml 547 ml Tube Feeding 135 ml 796 ml Tube Irrigant 100 ml 100 ml Output Urine Total 15 ml 45 ml Stool Total 200 ml 800 ml Hemodialysis 2700 ml Vital Signs Date Time Temp Pulse Resp B/P Pulse Ox O2 Delivery O2 Flow Rate FiO2 09/25/16 10:00 108 09/25/16 08:33 99 40 09/25/16 08:33 40 09/25/16 08:30 99 40 09/25/16 08:30 40 09/25/16 08:00 99.3 109 5 116/75 100 09/25/16 08:00 104 09/25/16 08:00 40 09/25/16 06:00 103 09/25/16 04:00 40 09/25/16 04:00 104 09/25/16 04:00 99.0 104 8 84/57 96 09/25/16 03:33 95 40 09/25/16 02:00 102 09/25/16 00:00 107 09/25/16 00:00 40 09/25/16 00:00 100.0 107 15 103/71 100 09/24/16 23:37 99 40 09/24/16 22:00 104 09/24/16 20:00 105 09/24/16 20:00 99.5 105 22 120/59 100 09/24/16 20:00 40 09/24/16 19:47 100 40 09/24/16 18:00 96 09/24/16 16:02 96 40 09/24/16 16:00 100.4 104 18 99/55 97 09/24/16 16:00 104 09/24/16 16:00 35 09/24/16 14:00 96 09/24/16 12:00 98.9 83 21 167/70 99 09/24/16 12:00 83 09/24/16 12:00 35 09/24/16 11:46 40 09/24/16 11:46 99 40 -: 09/25/16 0500 09/25/16 0500 Physical Exam General Appearance: Well Developed, Well Nourished Pulmonary Resp Exam: Crackles, Rhonchi, Decreased Bases, Diminished Breath Sounds Cardiology CV Exam: Regular, Normal Sinus Rhythm Gastrointestinal/Abdomen GI Exam: Soft, Non-Tender, Bowel Sounds Present, Distended Extremeties Extremities Exam: Moderate Edema, Pitting Edema, Dependent Edema Neurologic Neuro Exam: Sedated Assessment/Plan Problem List: (1) Acute renal failure Plan: Remains intubated Oliguric renal failure on hemodialysis M,W,F Tolerated HD yesterday with 2.7 L UF Plan for next HD Tuesday K+ replaced yesterday, continue to monitor. has Pneumonia ceftaroline/tazobactam Pseudomonas (2) Hyperkalemia Plan: Resolved (3) Chronic kidney disease Plan: He has stage III chronic kidney disease due to diabetic (4) CHF (congestive heart failure), NYHA class III Plan: Continue to monitor for improvement (5) Coronary artery disease involving [place] heart Plan: had bypass and stents (6) Hypertension, essential, benign Plan: Monitor blood pressure (7) Diabetes mellitus, type II Plan: Monitor blood glucose (8) UTI (lower urinary tract infection) (9) CVA (cerebral vascular accident) Plan: remain unresponsive moves left side more (10) Need for prophylactic vaccination and inoculation against influenza (11) Clostridium difficile infection Plan: on PO Vanco Problem Qualifiers (1) Acute renal failure: Qualified Code: N17.0 - Acute renal failure with tubular necrosis (2) Chronic kidney disease: Qualified Code: N18.4 - Chronic kidney disease, stage 4 (severe) (3) Diabetes mellitus, type II: Qualified Code: E11.22 - Type 2 diabetes mellitus with diabetic chronic kidney disease, unspecified CKD stage, unspecified alf insulin use status (4) CVA (cerebral vascular accident): Sanket Khan MD Sep 25, 2016 11:43
--- NOTE | 2016-09-25 20:39 | HHI.CCPN ---
Subjective Remarks/Hospital Course 66-year-old gentleman with a history of coronary artery disease status post CABG underwent emergent cardiac catheterization by Dr. Cummins. Postprocedure his course is complicated by aphasia and right-sided weakness. 09/08 Patient was on BIPAP 14/7 with FIO2 25%. On Precedex and heparin drips. CT brain showed last night showed no acute process. Impela was removed this morning by Dr. Cummins. T:99.9 Renal function improving with Cr:2.5 from 3.0 hyperkalemic with K 6.1 09/09: Overnight remained on BiPAP predominantly for sleep apnea. Intermittently follows commands. Will check MRI of the brain today. Creatinine slightly worsened to 2.8. Consulted nephrology, hyperkalemia resolved 09/10: Remains on BiPAP, some interval worsening of respiratory status. Patient is more tachypneic chest x-ray shows left lower lobe infiltrate .Currently sedated with 0.5 g per KG per hour of Precedex. I will discontinue Precedex. MRI brain shows acute infarct left sylvian region. Creatinine slightly worse at 3. Low-grade fever Tmax 100.2, send blood and sputum culture and start Zosyn 09/11: Patient was intubated yesterday for progressively worsening respiratory failure, hypoxemia and altered mentation. On ventilator support patient's oxygenation has improved. He moves all extremities do not following commands. Chest x-ray shows no definite infiltrates 09/12: Extubated yesterday tolerating well oxygenation varghese and protecting airway. No fevers. Urine output 3.8 L in 24 hours with creatinine worsening from 3.9 to 4.5 today. Remains aphasic not following commands 09/13: Somnolent, received Ativan for agitation overnight. Urine output 4 L in 24 hours. Labs are pending at this time. Opens eyes to verbal stimulation, remains aphasic and did not follow commands 09/14 Patient appears somnolent. On no sedation. Renal function worse today with Cr: 7.31 from 5.40 and UO: 715ml in 24hrs. T:100.9 this morning. Remains aphasic. 09/15 Patient was placed on Amio drip overnight for Afib with RVR. HD initiated yesterday with removal 2L. He is currently receiving another HD treatment. Tmax 100.9. Patient remains encephalopathic and does not follow commands. TF was held due to high residuals. 09/16 Patient was intubated yesterday for airway protection. On Fentanyl drip for sedation on Neosyn. Tmax 104. C-diff PCR positive. CT abd/pelvis showed no acute process, gaseous distention. 09/17 Patient remains intubated and sedated with Fentanyl. On Neosyn 75 mics. T: 101.8 at 4 am. 09/18 Patient remains sedated and intubated. T:101.1 last night. On Neosyn 60 mics. 09/19 No acute events overnight. Off Neosyn and is on Fentanyl infusion for sedation. T:100.5. Tolerated CPAP x 4 hrs yesterday. Patient was able to open up his eyes off sedation. 09/20 Patient remains sedated with Fentanyl and intubated. T:99.8 last night. WBC trending down. Off Neosyn. For J-tube placement by IR today. 09/21 Patient remains sedated and intubated. T:100.0 last night. s/p HD yesterday with removal 3.5L. 09/22-continues to have low-grade fever. On sedation hold open size moves all extremities do not follow commands. White count stable at 17.8 09/23/16: T 100.3, white count slightly improved 16.9. Neuro exam remains unchanged family has not decided about trach yet wants to wait a few more days 09/24 No acute events overnight. T;100.4 last night. On Fentanyl infusion for sedation. TF held for high residuals. For HD today. 09/25: no significant clinical change. still with low grade temps. mental status still poor. wbc persistently elevated. Objective Vital Signs Date Time Temp Pulse Resp B/P Pulse Ox O2 Delivery O2 Flow Rate FiO2 09/25/16 18:00 113 09/25/16 17:35 96 40 09/25/16 16:00 99.5 27 118/60 Intake and Output 09/24/16 09/24/16 09/25/16 08:00 16:00 00:00 Intake Total 435 ml 729 ml 689 ml Output Total 50 ml 2915 ml 620 ml Balance 385 ml -2186 ml 69 ml Result Diagram: 09/25/16 0500 09/25/16 0500 Imaging Last Impressions Chest X-Ray 09/24/16 0600 Signed Impressions: Service Date/Time: Saturday, September 24, 2016 05:05 - CONCLUSION: Interval development of non-consolidative infiltrates in both lower lungs. Suresh Diaz MD Liver Ultrasound 09/17/16 1030 Signed Impressions: Service Date/Time: Saturday, September 17, 2016 11:01 - CONCLUSION: 1. Minimally complex cyst right mid kidney. 2. Liver mildly enlarged. Cesar Mcfadden MD Abdomen X-Ray 09/17/16 0600 Signed Impressions: Service Date/Time: Saturday, September 17, 2016 05:05 - CONCLUSION: Nonspecific abdomen appearance. Michael Ross MD Head CT 09/15/16 0000 Signed Impressions: Service Date/Time: Thursday, September 15, 2016 10:15 - CONCLUSION: 1. Sizable area of decreased attenuation in the left MCA distribution most consistent with subacute cortical infarct. This there is stable compared to previous MR dated 09/09/16. Sanket Gonzalez MD Central Venous Line 09/15/16 0000 Signed Impressions: Service Date/Time: Thursday, September 15, 2016 00:00 - CONCLUSION: Uncomplicated line placement as above. Wesley Chaudhari MD Abdomen/Pelvis CT 09/15/16 0000 Signed Impressions: Service Date/Time: Thursday, September 15, 2016 17:00 - CONCLUSION: 1. Gaseous distension of the stomach. 2. I do not see evidence for significant colitis. Lowell Gonzalez MD FACR Catheter Placement X-Ray 09/14/16 0000 Signed Impressions: Service Date/Time: Wednesday, September 14, 2016 00:00 - CONCLUSION: Uncomplicated line placement as above. Wesley Chaudhari MD Carotid Artery Ultrasound 09/13/16 0000 Signed Impressions: Service Date/Time: Tuesday, September 13, 2016 16:46 - CONCLUSION: Significant plaque remains evident in the carotid bifurcations. Poor visualization and difficulty velocity sampling of the proximal internal carotid arteries was again encountered. Significant carotid stenosis cannot be excluded. Nonvisualization of the vertebral arteries. Mack Brizuela MD Brain MRI 09/09/16 0000 Signed Impressions: Service Date/Time: August 16:36 - CONCLUSION: 1. Findings demonstrate an acute infarction in the left sylvian region, nonhemorrhagic. 2. Small air-fluid level right maxillary sinus and mild bilateral ethmoid sinus disease. Suresh Diaz MD Renal Ultrasound 09/08/16 0000 Signed Impressions: Service Date/Time: Thursday, September 08, 2016 16:04 - CONCLUSION: Large 6.3 cm cyst lower pole laterally left kidney. No evidence of hydronephrosis or obstructive uropathy.. Christian Cooper MD Objective Remarks GENERAL: critically ill elderly male, intubated, sedated. HEENT: nc. at. perrl. mucous membranes moist. NECK: trachea midline. No JVD CARDIOVASCULAR: Regular rate and rhythm., sinus by tele. RESPIRATORY: Breath sounds equal bilaterally. No accessory muscle use. GASTROINTESTINAL: Abdomen soft, non-tender, nondistended. MUSCULOSKELETAL: No cyanosis, or edema. NEURO: Able to open eyes and moves extremities spontaneously however he does not follow commands A/P Problem List: (1) Acute ischemic left MCA stroke ICD Code: I63.512 Status: Acute (2) Acute renal failure ICD Code: N17.9 Status: Acute (3) CHF (congestive heart failure), NYHA class III ICD Code: I50.9 Status: Acute (4) Coronary artery disease involving saxman heart ICD Code: I25.10 Status: Chronic (5) HTN (hypertension) ICD Code: I10 Status: Acute (6) CKD (chronic kidney disease) ICD Code: N18.9 Status: Acute Assessment and Plan ASSESSMENT Acute left MCA stroke Aphasia with right hemiparesis Acute respiratory failure Metabolic encephalopathy NSTEMI Known CAD C-diff colitis Obstructive sleep apnea UTI with enterococcus HCAP Acute on chronic kidney disease Hyperkalemia-resolved DM HTN LEONARD Hyperlipidemia Plan Neuro: -On Fentanyl infusion. Monitor neuro status. Ativan PRN for agitation. Daily sedation vacation -MRI brain 09/09/16-acute left sylvian region infarct. CT brain 09/07: No acute disease. -Repeat CT brain 09/15: Sizable area of decreased attenuation in the left MCA distribution most consistent with subacute cortical infarct -Continue aspirin and Plavix. Neuro was following- Cr. Patrick. -09/13 EEG: within normal. Pulm: -Continue with vent support keep sat >90% -Bronchodilators, ICU vent bundle, CPAP trials as khris. Mental status will not permit extubation at this time -does not meet SBT criteria due to mental status. -Most likely need need trach-family wants to wait few more days before trach-re address early next week. Re intubated on 09/15/16 -Palliative care following CV: -Monitor HR and BP keep MAP>65mmHg -Continue with ASA, Plavix. Imdur and Lopressor on hold due to hypotension -Lipitor held for elevated LFT's -s/p cardiac cath 09/07 showed multivessel disease with 2/6 grafts patent, EF 40% . s/p PCI with stents of the saphenous venous graft to the first diagonal artery. -s/p removal Impella 09/08. Cardiology- Dr. Cummins : -Monitor renal function, I/O's, avoid nephrotoxins. -HD initiated 09/14 , renal-Dr. Naidu. . Monitor CK's ( trending down) GI: -On Protonix 40mg -GI is following -Monitor LFT's ( trending down), Hepatitis profile negative on 09/14 -US Liver: Minimally complex cyst right mid kidney. Liver mildly enlarged. -Continue with TF- Nepro advance to goal rate ID: Leukocytosis.stable C-diff colitis Sputum cx: 09/17 Pseudomonas -Continue abx per ID ( PO Vanco, IV Zerbaxa, Zyvox, IV Diflucan, Tobra nebs). Monitor for signs of infections ( Fever, WBC) -f/u BC x 2 sets 09/21: NGTD -CT abd/pelvis: Gaseous distention, no acute process -KUB abdomen 09/17- non specific bowel gas pattern Heme: -Monitor CBC Endo: -SSI( Medium) with accuchecks for glycemic control, Levemir 5u Q12 GI prophylaxis - on Protonix 40mg Q12 DVT prophylaxis - SCD, Heparin 5000 units sq very 12 Palliative care is following. Lines: Right Vascth placed 09/14, Right IJ CVP placed 09/15 Problem Qualifiers (1) Acute renal failure: Qualified Code: N17.0 - Acute renal failure with tubular necrosis Enoch Robertson MD Sep 25, 2016 20:39
[2016-09-26] VITALS (20 sets, daily range): BP systolic 94–113; BP diastolic 62–76; PULSE 96–112; RESP 18–26; TEMP 98.5–100.6; O2SAT 94–100
[2016-09-26] MEDS: CHLORHEXIDINE GLUCONATE 2 % 1 PACK (2 CLOTHS) TOP SCH (01:16)
[2016-09-26] MEDS: INSULIN NovoLIN REGULAR SUPPLEMENTAL SCALE SQ SCH ×6 (01:16→20:24)
[2016-09-26] MEDS: TAZOBACTAM IV SCH ×6 (05:13→20:24)
[2016-09-26] MEDS: METOCLOPRAMIDE HCL 10 MG/2 ML VIAL IV PUSH SCH ×3 (05:13→22:41)
[2016-09-26] MEDS: CEFTOLOZANE IV SCH ×6 (05:13→20:24)
[2016-09-26] MEDS: SODIUM CHLORIDE IV SCH ×6 (05:13→20:24)
[2016-09-26 05:38] LABS: AUTOMATED NEUTROPHIL # 17.8 TH/MM3 (1.8-7.7); BASOPHIL % 0.1 % (0.0-2.0); EOSINOPHIL # 0.3 TH/MM3 (0-0.4); EOSINOPHIL % 1.5 % (0.0-4.0); HEMATOCRIT 29.6 % (39.0-51.0); HEMO FLAGS DIFF FINAL; LYMPH % 4.6 % (9.0-44.0); MEAN CORPUSCULAR HEMOGLOBIN 29.7 PG (27.0-34.0); MONO % 8.3 % (0.0-8.0); NEUT % 85.5 % (16.0-70.0); PLATELET COUNT 295 TH/MM3 (150-450); RED BLOOD COUNT 3.29 MIL/MM3 (4.50-5.90); RED CELL DISTRIBUTION WIDTH 15.5 % (11.6-17.2); WHITE BLOOD COUNT 20.9 TH/MM3 (4.0-11.0)
[2016-09-26 06:11] LABS: ALKALINE PHOSPHATASE 98 U/L (45-117); ALT (GPT) 62 U/L (12-78); ANION GAP 19 MEQ/L (5-15); AST (GOT) 29 U/L (15-37); BICARBONATE 22.7 MEQ/L (21.0-32.0); BLOOD UREA NITROGEN 91 MG/DL (7-18); CHLORIDE 93 MEQ/L (98-107); GLOMERULAR FILTRATION RATE 4 ML/MIN (>89); MAGNESIUM 2.3 MG/DL (1.5-2.5); POTASSIUM 3.7 MEQ/L (3.5-5.1); SODIUM (NA) 135 MEQ/L (136-145); TOTAL BILIRUBIN ADULT 0.6 MG/DL (0.2-1.0)
[2016-09-26] MEDS: RESP: TOBRAMYCIN SULFATE 300 MG/5 ML NEB NEB SCH ×2 (07:22→19:52)
[2016-09-26] MEDS: PANTOPRAZOLE SODIUM 40 MG VIAL IV PUSH SCH ×2 (07:54→20:26)
[2016-09-26] MEDS: VANCOMYCIN 500 MG VIAL (FOR ORAL USE ONLY) PO SCH ×4 (07:54→20:26)
[2016-09-26] MEDS: SENNOSIDES SYRUP 8.8 MG/5 ML CUP PO SCH (07:54)
[2016-09-26] MEDS: ASPIRIN 81 MG CHEW TAB CHEW SCH (07:55)
[2016-09-26] MEDS: DOCUSATE SODIUM 100 MG/10 ML UDC PO SCH ×2 (07:55→20:20)
[2016-09-26] MEDS: CLOPIDOGREL 75 MG TAB PO SCH (07:55)
[2016-09-26] MEDS: HEPARIN SODIUM - SQ 10,000 UNITS/ML VIAL SQ SCH ×2 (07:56→20:20)
[2016-09-26] MEDS: INSULIN DETEMIR 100 UNITS/ML VIAL SQ SCH ×2 (07:56→20:20)
[2016-09-26] MEDS: CHLORHEXIDINE 0.12% (ORAL KIT) 15 ML CUP MT SCH ×2 (07:57→20:21)
[2016-09-26] MEDS: SODIUM CHLORIDE 0.9% FLUSH 5 ML FLUSH IV FLUSH SCH ×2 (07:58→20:21)
[2016-09-26] MEDS: SODIUM CHLORIDE 0.9% FLUSH 5 ML FLUSH IVF SCH (07:58)
[2016-09-26] MEDS: ARTIFICIAL TEARS OPTH OINT 3.5 APPLIC/3.5 GM TUBO EACH EYE SCH ×2 (07:58→20:22)
[2016-09-26] MEDS: SODIUM CHLOR 0.9% 1000 ML INJ 1,000 ML IV SCH (08:19)
--- NOTE | 2016-09-26 09:37 | HHI.PR ---
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 then switch to anticoagulation maxillofacial pathology 09/13 very much unchanged neuro status little less agitated and still neglecting right side and moves left much better retry carotid us I wonder if stroke is from cardio embolism and if cardio feels relatively high risk for cardio embolism then anticoagulation might be in his best 09/15 less responsive, no sedation will obtaain ct brain f/u as he should be improving from neuro standpoint ??adtl infarct, hemorrhagic stroke transformation discussed with art dealer and RN 09/17 discussed with CARA hall basically unchanged repeat/follow up ct 2 days ago seen, no new neuro findings extension of continuing care being discussed between family and palliative care team, will monitor 09/21 with mild stim he awakens and moves 4 limbs right hemiparesis but he sustains right arm elevated on his own he core setter with the left though not sure he does it following instructions as he is probably significantly aphasic the multiple medical problems are the main deterrent to overall recovery as he improves medically the neuro status will gradually be better as well and I expect he will walk and might be verbal though aphasia is difficult to predict if he improves medically, consider maxillofacial pathology anticoagulation due to risk of additional cardioembolism will continue to follow peripherally, discussed with dr Leon 09/26 spoke with CARA Dowd stable neuro status, not progressing much may need trach/peg will monitor peripherally Subjective Subjective Comments No seizures or neuro changes reported Active Medications Current Medications Medications (Trade) Dose Ordered Sig/Eric Route Start Time Stop Time Status Last Admin (Plavix) 75 mg DAILY PO 09/08/16 09:00 09/26/16 07:55 (Imdur) 60 mg DAILY@07 PO 09/08/16 07:00 Hold 09/14/16 04:48 (NS Flush) 2 ml UNSCH PRN IV FLUSH 09/07/16 21:30 09/14/16 23:58 (NS Flush) 2 ml BID IV FLUSH 09/08/16 09:00 09/26/16 07:58 (Morphine Inj) 2 mg Q2H PRN IV 09/07/16 21:30 09/14/16 23:57 (Ativan Inj) 0.5 mg Q2HR PRN IV 09/07/16 21:30 09/17/16 20:43 (Zofran Inj) 4 mg Q6H PRN IV 09/07/16 21:30 09/08/16 22:00 (Reglan Inj) 5 mg Q6H PRN IV 09/07/16 21:30 09/16/16 17:54 Miscellaneous Information 1 Q361D XX 09/07/16 21:30 (Chlorhexidine 2% Cloth) Taper DAILY@04 TOP 09/08/16 04:00 09/04/17 03:59 09/26/16 01:16 (Chlorhexidine 2% Cloth) 3 pack UNSCH PRN TOP 09/07/16 21:30 (Apresoline Inj) 20 mg Q4H PRN IV PUSH 09/08/16 04:30 09/13/16 21:29 (D50w (Vial) Inj) 25 ml UNSCH PRN IV PUSH 09/08/16 12:45 (Glucagon Inj) 1 mg UNSCH PRN OTHER 09/08/16 12:45 (NovoLIN R SUPPLEMENTAL SCALE) 1 Q4H SQ 09/08/16 13:00 09/26/16 07:57 (Lopressor) 50 mg Q8H PO 09/09/16 14:00 Hold 09/14/16 20:56 (Heparin Inj) 5,000 units Q12HR SQ 09/09/16 09:00 09/26/16 07:56 (Lacrilube Opht Oint) 1 applic BID EACH EYE 09/09/16 21:00 09/26/16 07:58 (Peridex 0.12% Liq) 15 ml BID@08,20 MT 09/10/16 20:00 09/26/16 07:57 Docusate Sodium 100 mg 100 mg BID PO 09/11/16 10:00 09/26/16 07:55 (NS 1000 ml Inj) 1,000 ml @ 5 mls/hr Q24H IV 09/13/16 11:00 09/26/16 08:19 (Protonix Inj) 40 mg Q12H IV PUSH 09/13/16 20:00 09/26/16 07:54 Heparin Sodium (Porcine) 8000 units 8,000 units UNSCH PRN IVF 09/14/16 11:00 (NS 1000 ml Inj) 1,000 ml @ 0 mls/hr Q0M PRN IV 09/14/16 10:48 09/24/16 12:25 (Mannitol Inj) 12.5 gm UNSCH PRN IV 09/14/16 11:00 09/22/16 08:13 (Albumin 25% Inj) 25 gm UNSCH PRN IV 09/14/16 11:00 09/22/16 08:14 (NS Flush) 5 ml UNSCH PRN IVF 09/14/16 11:00 09/22/16 08:15 (Heparin Inj) UNSCH PRN .XX 09/14/16 11:00 09/24/16 12:26 (Gentamicin (Dialysis) Inj) 20 mg UNSCH PRN IV 09/14/16 11:00 09/24/16 12:27 (Zofran Inj) 4 mg UNSCH PRN IV 09/14/16 11:00 (Benadryl) 25 mg UNSCH PRN PO 09/14/16 11:00 (Nitrostat Sl) 0.4 mg UNSCH PRN SL 09/14/16 11:00 (Catapres) 0.1 mg UNSCH PRN PO 09/14/16 11:00 (Gelfoam 12 Mm/7 Mm Top) 1 foam UNSCH PRN TOP 09/14/16 11:00 (NS Flush) UNSCH PRN IVF 09/14/16 16:00 Heparin Sodium (Porcine) UNSCH PRN IVF 09/14/16 16:00 (Neosynephrine Inj/D5W 500 ml Inj) 500 ml @ 0 mls/hr TITRATE IV 09/15/16 10:00 09/18/16 06:10 Terbutaline Sulfate 1 mg 1 mg UNSCH PRN SQ 09/15/16 09:00 (Diprivan 1000 Mg/100ml Inj) 100 ml @ 0 mls/hr TITRATE IV 09/15/16 13:45 (VANCOMYCIN for oral use only) 125 mg QID PO 09/15/16 18:00 09/26/16 07:54 (NS Flush) DAILY IVF 09/16/16 09:00 09/26/16 07:58 (NS Flush) UNSCH PRN IVF 09/15/16 16:45 Fentanyl Citrate 50 mcg 50 mcg Q1H PRN IV PUSH 09/15/16 23:30 (fentaNYL DRIP) 250 ml @ 0 mls/hr TITRATE IV 09/15/16 23:30 09/24/16 04:58 (Ofirmev Inj) 650 mg Q6H PRN IV 09/16/16 01:45 09/22/16 20:34 (Levemir Inj) 5 units Q12HR SQ 09/18/16 09:00 09/26/16 07:56 (Senna Liq) 8.8 mg DAILY PO 09/19/16 09:00 09/26/16 07:54 Aspirin 81 mg 81 mg DAILY CHEW 09/19/16 10:00 09/26/16 07:55 (Zerbaxa Inj/NS Inj) 100 ml @ 100 mls/hr Q8H IV 09/22/16 05:00 09/26/16 05:13 (Reglan Inj) 5 mg Q8HR IV PUSH 09/22/16 22:00 09/26/16 05:13 Allergies Allergies Coded Allergies No Known Allergies (Verified09/07/16) Exam I&O / VS 09/25/16 09/25/16 09/26/16 15:00 23:00 07:00 Intake Total 430 ml 154 ml 335 ml Output Total 525 ml 100 ml 125 ml Balance -95 ml 54 ml 210 ml IV Total 188 ml 75 ml 234 ml Tube Feeding 242 ml 79 ml 101 ml Output Urine Total 25 ml 50 ml 25 ml Stool Total 500 ml 50 ml 100 ml Vital Signs Date Time Temp Pulse Resp B/P Pulse Ox O2 Delivery O2 Flow Rate FiO2 09/26/16 08:00 40 09/26/16 08:00 98.7 97 26 111/76 100 09/26/16 08:00 97 09/26/16 07:22 100 35 09/26/16 06:00 104 09/26/16 04:03 100 40 09/26/16 04:00 109 09/26/16 04:00 100.2 109 19 94/62 100 09/26/16 04:00 40 09/26/16 01:02 100 40 09/26/16 00:00 112 09/26/16 00:00 40 09/26/16 00:00 100.6 112 20 113/72 100 09/25/16 22:05 100 40 09/25/16 22:00 109 09/25/16 20:14 99 40 09/25/16 20:00 110 09/25/16 20:00 40 09/25/16 20:00 100.3 110 27 129/72 100 09/25/16 18:00 113 09/25/16 17:35 96 40 09/25/16 16:00 99.5 114 27 118/60 100 09/25/16 16:00 40 09/25/16 16:00 114 09/25/16 15:57 99 40 09/25/16 14:00 111 09/25/16 12:02 98 40 09/25/16 12:00 99.1 108 32 108/61 100 09/25/16 12:00 40 09/25/16 12:00 109 09/25/16 10:00 108 Objective Micro and Labs Laboratory Tests Test 09/26/16 03:50 White Blood Count 20.9 Red Blood Count 3.29 Hemoglobin 9.8 Hematocrit 29.6 Mean Corpuscular Volume 90.0 Mean Corpuscular Hemoglobin 29.7 Mean Corpuscular Hemoglobin 33.0 Concent Red Cell Distribution Width 15.5 Platelet Count 295 Mean Platelet Volume 9.0 Neutrophils (%) (Auto) 85.5 Lymphocytes (%) (Auto) 4.6 Monocytes (%) (Auto) 8.3 Eosinophils (%) (Auto) 1.5 Basophils (%) (Auto) 0.1 Neutrophils # (Auto) 17.8 Lymphocytes # (Auto) 1.0 Monocytes # (Auto) 1.7 Eosinophils # (Auto) 0.3 Basophils # (Auto) 0.0 CBC Comment DIFF FINAL Differential Comment Sodium Level 135 Potassium Level 3.7 Chloride Level 93 Carbon Dioxide Level 22.7 Anion Gap 19 Blood Urea Nitrogen 91 Creatinine 11.64 Estimat Glomerular Filtration 4 Rate Random Glucose 206 Calcium Level 9.3 Phosphorus Level 8.7 Magnesium Level 2.3 Total Bilirubin 0.6 Aspartate Amino Transf 29 (AST/SGOT) Alanine Aminotransferase 62 (ALT/SGPT) Alkaline Phosphatase 98 Total Protein 8.8 Albumin 3.0 Date/Time Procedure Status Source Growth 09/21/16 09:40 Aerobic Blood Culture - Preliminary Resulted Blood Peripheral NO GROWTH IN 4 DAYS 09/21/16 09:40 Anaerobic Blood Culture - Preliminary Resulted Blood Peripheral NO GROWTH IN 4 DAYS Shahnaz Nguyen MD Sep 26, 2016 09:37
--- NOTE | 2016-09-26 13:11 | HHI.CCPN ---
Subjective Remarks/Hospital Course 66-year-old gentleman with a history of coronary artery disease status post CABG underwent emergent cardiac catheterization by Dr. Cummins. Postprocedure his course is complicated by aphasia and right-sided weakness. 09/08 Patient was on BIPAP 14/7 with FIO2 25%. On Precedex and heparin drips. CT brain showed last night showed no acute process. Impela was removed this morning by Dr. Cummins. T:99.9 Renal function improving with Cr:2.5 from 3.0 hyperkalemic with K 6.1 09/09: Overnight remained on BiPAP predominantly for sleep apnea. Intermittently follows commands. Will check MRI of the brain today. Creatinine slightly worsened to 2.8. Consulted nephrology, hyperkalemia resolved 09/10: Remains on BiPAP, some interval worsening of respiratory status. Patient is more tachypneic chest x-ray shows left lower lobe infiltrate .Currently sedated with 0.5 g per KG per hour of Precedex. I will discontinue Precedex. MRI brain shows acute infarct left sylvian region. Creatinine slightly worse at 3. Low-grade fever Tmax 100.2, send blood and sputum culture and start Zosyn 09/11: Patient was intubated yesterday for progressively worsening respiratory failure, hypoxemia and altered mentation. On ventilator support patient's oxygenation has improved. He moves all extremities do not following commands. Chest x-ray shows no definite infiltrates 09/12: Extubated yesterday tolerating well oxygenation varghese and protecting airway. No fevers. Urine output 3.8 L in 24 hours with creatinine worsening from 3.9 to 4.5 today. Remains aphasic not following commands 09/13: Somnolent, received Ativan for agitation overnight. Urine output 4 L in 24 hours. Labs are pending at this time. Opens eyes to verbal stimulation, remains aphasic and did not follow commands 09/14 Patient appears somnolent. On no sedation. Renal function worse today with Cr: 7.31 from 5.40 and UO: 715ml in 24hrs. T:100.9 this morning. Remains aphasic. 09/15 Patient was placed on Amio drip overnight for Afib with RVR. HD initiated yesterday with removal 2L. He is currently receiving another HD treatment. Tmax 100.9. Patient remains encephalopathic and does not follow commands. TF was held due to high residuals. 09/16 Patient was intubated yesterday for airway protection. On Fentanyl drip for sedation on Neosyn. Tmax 104. C-diff PCR positive. CT abd/pelvis showed no acute process, gaseous distention. 09/17 Patient remains intubated and sedated with Fentanyl. On Neosyn 75 mics. T: 101.8 at 4 am. 09/18 Patient remains sedated and intubated. T:101.1 last night. On Neosyn 60 mics. 09/19 No acute events overnight. Off Neosyn and is on Fentanyl infusion for sedation. T:100.5. Tolerated CPAP x 4 hrs yesterday. Patient was able to open up his eyes off sedation. 09/20 Patient remains sedated with Fentanyl and intubated. T:99.8 last night. WBC trending down. Off Neosyn. For J-tube placement by IR today. 09/21 Patient remains sedated and intubated. T:100.0 last night. s/p HD yesterday with removal 3.5L. 09/22-continues to have low-grade fever. On sedation hold open size moves all extremities do not follow commands. White count stable at 17.8 09/23/16: T 100.3, white count slightly improved 16.9. Neuro exam remains unchanged family has not decided about trach yet wants to wait a few more days 09/24 No acute events overnight. T;100.4 last night. On Fentanyl infusion for sedation. TF held for high residuals. For HD today. 09/25: no significant clinical change. still with low grade temps. mental status still poor. wbc persistently elevated. 09/26: continues with fevers. wbc uptrended overnight. no changes in severe encephalopathy. Objective Vital Signs Date Time Temp Pulse Resp B/P Pulse Ox O2 Delivery O2 Flow Rate FiO2 09/26/16 12:48 100 35 09/26/16 12:00 101 09/26/16 08:00 98.7 26 111/76 Intake and Output 09/25/16 09/25/16 09/26/16 08:00 16:00 00:00 Intake Total 754 ml 430 ml 154 ml Output Total 225 ml 525 ml 100 ml Balance 529 ml -95 ml 54 ml Result Diagram: 09/26/16 0350 09/26/16 0350 Imaging Last Impressions Chest X-Ray 09/24/16 0600 Signed Impressions: Service Date/Time: Saturday, September 24, 2016 05:05 - CONCLUSION: Interval development of non-consolidative infiltrates in both lower lungs. Suresh Diaz MD Liver Ultrasound 09/17/16 1030 Signed Impressions: Service Date/Time: Saturday, September 17, 2016 11:01 - CONCLUSION: 1. Minimally complex cyst right mid kidney. 2. Liver mildly enlarged. Cesar Mcfadden MD Abdomen X-Ray 09/17/16 0600 Signed Impressions: Service Date/Time: Saturday, September 17, 2016 05:05 - CONCLUSION: Nonspecific abdomen appearance. Michael Ross MD Head CT 09/15/16 0000 Signed Impressions: Service Date/Time: Thursday, September 15, 2016 10:15 - CONCLUSION: 1. Sizable area of decreased attenuation in the left MCA distribution most consistent with subacute cortical infarct. This there is stable compared to previous MR dated 09/09/16. Sanket Gonzalez MD Central Venous Line 09/15/16 0000 Signed Impressions: Service Date/Time: Thursday, September 15, 2016 00:00 - CONCLUSION: Uncomplicated line placement as above. Wesley Chaudhari MD Abdomen/Pelvis CT 09/15/16 0000 Signed Impressions: Service Date/Time: Thursday, September 15, 2016 17:00 - CONCLUSION: 1. Gaseous distension of the stomach. 2. I do not see evidence for significant colitis. Lowell Gonzalez MD FACR Catheter Placement X-Ray 09/14/16 0000 Signed Impressions: Service Date/Time: Wednesday, September 14, 2016 00:00 - CONCLUSION: Uncomplicated line placement as above. Wesley Chaudhari MD Carotid Artery Ultrasound 09/13/16 0000 Signed Impressions: Service Date/Time: Tuesday, September 13, 2016 16:46 - CONCLUSION: Significant plaque remains evident in the carotid bifurcations. Poor visualization and difficulty velocity sampling of the proximal internal carotid arteries was again encountered. Significant carotid stenosis cannot be excluded. Nonvisualization of the vertebral arteries. Mcak Brizuela MD Brain MRI 09/09/16 0000 Signed Impressions: Service Date/Time: August 16:36 - CONCLUSION: 1. Findings demonstrate an acute infarction in the left sylvian region, nonhemorrhagic. 2. Small air-fluid level right maxillary sinus and mild bilateral ethmoid sinus disease. Suresh Diaz MD Renal Ultrasound 09/08/16 0000 Signed Impressions: Service Date/Time: Thursday, September 08, 2016 16:04 - CONCLUSION: Large 6.3 cm cyst lower pole laterally left kidney. No evidence of hydronephrosis or obstructive uropathy.. Christian Cooper MD Objective Remarks GENERAL: critically ill elderly male, intubated, sedated. HEENT: nc. at. perrl. mucous membranes moist. NECK: trachea midline. No JVD CARDIOVASCULAR: Regular rate and rhythm., sinus by tele. RESPIRATORY: Breath sounds equal bilaterally. No accessory muscle use. GASTROINTESTINAL: Abdomen soft, non-tender, nondistended. MUSCULOSKELETAL: No cyanosis, or edema. NEURO: Able to open eyes and moves extremities spontaneously however he does not follow commands A/P Problem List: (1) Acute ischemic left MCA stroke ICD Code: I63.512 Status: Acute (2) Acute renal failure ICD Code: N17.9 Status: Acute (3) CHF (congestive heart failure), NYHA class III ICD Code: I50.9 Status: Acute (4) Coronary artery disease involving [place] heart ICD Code: I25.10 Status: Chronic (5) HTN (hypertension) ICD Code: I10 Status: Acute (6) CKD (chronic kidney disease) ICD Code: N18.9 Status: Acute Assessment and Plan ASSESSMENT: 66yM with CAD and now s/p Left MCA CVA with residual deficits. multiple organ systems still critically ill, including acute resp failure, encephalopathy, kidney injury, multiple nosocomial infections including pseudomonas and C.Difficile. persistent leukocytosis and fever are worrisome given maximal antibiotic therapy. poor prognosis. family continues to want aggressive measures. will require tracheostomy and peg placement next week. Plan Neuro: Acute left MCA stroke Aphasia with right hemiparesis Metabolic encephalopathy -On Fentanyl infusion. Monitor neuro status. Ativan PRN for agitation. Daily sedation vacation -MRI brain 09/09/16-acute left sylvian region infarct. CT brain 09/07: No acute disease. -Repeat CT brain 09/15: Sizable area of decreased attenuation in the left MCA distribution most consistent with subacute cortical infarct -Continue aspirin and Plavix. Neuro was following- Cr. Patrick. -09/13 EEG: within normal. Pulm: Obstructive sleep apnea Acute respiratory failure -Continue with vent support keep sat >90% -Bronchodilators, ICU vent bundle, CPAP trials as khris. Mental status will not permit extubation at this time -does not meet SBT criteria due to mental status. -Most likely need need trach-family wants to wait few more days before trach-re address early next week. Re intubated on 09/15/16 -Palliative care following CV: HTN Hyperlipidemia NSTEMI Known CAD -Monitor HR and BP keep MAP>65mmHg -Continue with ASA, Plavix. Imdur and Lopressor on hold due to hypotension -Lipitor held for elevated LFT's -s/p cardiac cath 09/07 showed multivessel disease with 2/6 grafts patent, EF 40% . s/p PCI with stents of the saphenous venous graft to the first diagonal artery. -s/p removal Impella 09/08. Cardiology- Dr. Cummins : Acute on chronic kidney disease -Monitor renal function, I/O's, avoid nephrotoxins. -HD initiated 09/14 , renal-Dr. Naidu. . Monitor CK's ( trending down) GI: Hyperkalemia-resolved -On Protonix 40mg -GI is following -Monitor LFT's ( trending down), Hepatitis profile negative on 09/14 -US Liver: Minimally complex cyst right mid kidney. Liver mildly enlarged. -Continue with TF- Nepro advance to goal rate ID: UTI with enterococcus HCAP Leukocytosis C-diff colitis Sputum cx: 09/17 Pseudomonas -Continue abx per ID ( PO Vanco, IV Zerbaxa, Zyvox, IV Diflucan, Tobra nebs). Monitor for signs of infections ( Fever, WBC) -f/u BC x 2 sets 09/21: NGTD -CT abd/pelvis: Gaseous distention, no acute process -KUB abdomen 09/17- non specific bowel gas pattern - may need to replace central lines given persistent leukocytosis. Heme: -Monitor CBC Endo: DM -SSI( Medium) with accuchecks for glycemic control, Levemir 5u Q12 GI prophylaxis - on Protonix 40mg Q12 DVT prophylaxis - SCD, Heparin 5000 units sq very 12 Palliative care is following. Lines: Right Vascth placed 09/14, Right IJ CVP placed 09/15. may need to consider replacing central lines given fever and leukocytosis. Problem Qualifiers (1) Acute renal failure: Qualified Code: N17.0 - Acute renal failure with tubular necrosis Enoch Robertson MD Sep 26, 2016 13:11
--- NOTE | 2016-09-26 13:35 | HHI.NPPN ---
Subjective History of Present Illness 66-year-old male with history of coronary artery disease status post CABG, osteoarthritis, diabetes, hyperlipidemia who was admitted there with unstable angina and underwent heart catheterization found to have significant blockages requiring stent and impella device, he has acute renal failure. Additional Remarks Patient on Vent Objective Data Data 09/25/16 09/26/16 19:00 07:00 Intake Total 430 ml 489 ml Output Total 525 ml 225 ml Balance -95 ml 264 ml IV Total 188 ml 309 ml Tube Feeding 242 ml 180 ml Output Urine Total 25 ml 75 ml Stool Total 500 ml 150 ml Vital Signs Date Time Temp Pulse Resp B/P Pulse Ox O2 Delivery O2 Flow Rate FiO2 09/26/16 12:48 100 35 09/26/16 12:00 101 09/26/16 12:00 98.5 101 18 113/66 98 09/26/16 12:00 35 09/26/16 10:00 104 09/26/16 09:42 100 35 09/26/16 08:43 100 35 09/26/16 08:43 35 09/26/16 08:00 40 09/26/16 08:00 98.7 97 26 111/76 100 09/26/16 08:00 97 09/26/16 07:22 100 35 09/26/16 06:00 104 09/26/16 04:03 100 40 09/26/16 04:00 109 09/26/16 04:00 100.2 109 19 94/62 100 09/26/16 04:00 40 09/26/16 01:02 100 40 09/26/16 00:00 112 09/26/16 00:00 40 09/26/16 00:00 100.6 112 20 113/72 100 09/25/16 22:05 100 40 09/25/16 22:00 109 09/25/16 20:14 99 40 09/25/16 20:00 110 09/25/16 20:00 40 09/25/16 20:00 100.3 110 27 129/72 100 09/25/16 18:00 113 09/25/16 17:35 96 40 09/25/16 16:00 99.5 114 27 118/60 100 09/25/16 16:00 40 09/25/16 16:00 114 09/25/16 15:57 99 40 09/25/16 14:00 111 -: 09/26/16 0350 09/26/16 0350 Physical Exam General Appearance: Well Developed, Well Nourished Pulmonary Resp Exam: Crackles, Rhonchi, Decreased Bases, Diminished Breath Sounds Cardiology CV Exam: Regular, Normal Sinus Rhythm Gastrointestinal/Abdomen GI Exam: Soft, Non-Tender, Bowel Sounds Present, Distended Extremeties Extremities Exam: Moderate Edema, Pitting Edema, Dependent Edema Neurologic Neuro Exam: Sedated Assessment/Plan Problem List: (1) Acute renal failure Plan: Remains intubated Oliguric renal failure on hemodialysis M,W,F Tolerated HD Tuesday with 2.7 L UF Plan for next HD Tuesday K+ replaced Tuesday, stable today - continue to monitor has Pneumonia ceftaroline/tazobactam Pseudomonas Febrile earlier today, continue to monitor (2) Hyperkalemia Plan: Resolved (3) Chronic kidney disease Plan: He has stage III chronic kidney disease due to diabetic (4) CHF (congestive heart failure), NYHA class III Plan: Continue to monitor for improvement (5) Coronary artery disease involving [place] heart Plan: had bypass and stents (6) Hypertension, essential, benign Plan: Monitor blood pressure (7) Diabetes mellitus, type II Plan: Monitor blood glucose (8) UTI (lower urinary tract infection) (9) CVA (cerebral vascular accident) Plan: remain unresponsive moves left side more (10) Need for prophylactic vaccination and inoculation against influenza (11) Clostridium difficile infection Plan: on PO Vanco Problem Qualifiers (1) Acute renal failure: Qualified Code: N17.0 - Acute renal failure with tubular necrosis (2) Chronic kidney disease: Qualified Code: N18.4 - Chronic kidney disease, stage 4 (severe) (3) Diabetes mellitus, type II: Qualified Code: E11.22 - Type 2 diabetes mellitus with diabetic chronic kidney disease, unspecified CKD stage, unspecified fci insulin use status (4) CVA (cerebral vascular accident): Sanket Khan MD Sep 26, 2016 13:35
[2016-09-26] MEDS: fentaNYL DRIP 250 ML IV SCH (20:20)
[2016-09-27] VITALS (19 sets, daily range): BP systolic 90–153; BP diastolic 53–79; PULSE 96–113; RESP 18–32; TEMP 98.1–99.6; O2SAT 98–100
[2016-09-27] MEDS: INSULIN NovoLIN REGULAR SUPPLEMENTAL SCALE SQ SCH ×6 (00:40→20:15)
[2016-09-27] MEDS: CHLORHEXIDINE GLUCONATE 2 % 1 PACK (2 CLOTHS) TOP SCH (04:00)
[2016-09-27] MEDS: SODIUM CHLORIDE IV SCH ×6 (04:57→20:15)
[2016-09-27] MEDS: METOCLOPRAMIDE HCL 10 MG/2 ML VIAL IV PUSH SCH ×3 (04:57→22:17)
[2016-09-27] MEDS: TAZOBACTAM IV SCH ×6 (04:57→20:15)
[2016-09-27] MEDS: CEFTOLOZANE IV SCH ×6 (04:57→20:15)
[2016-09-27 05:32] LABS: HEMATOCRIT 28.9 % (39.0-51.0); MEAN CELL VOLUME 90.3 FL (80.0-100.0); MEAN CORPUSCULAR HEMOGLOBIN 29.3 PG (27.0-34.0); MEAN CORPUSCULAR HGB CONC 32.4 % (32.0-36.0); PLATELET COUNT 272 TH/MM3 (150-450); RED CELL DISTRIBUTION WIDTH 15.5 % (11.6-17.2); REVIEW FLAG FINAL; WHITE BLOOD COUNT 19.8 TH/MM3 (4.0-11.0)
[2016-09-27 05:47] LABS: BICARBONATE 22.2 MEQ/L (21.0-32.0)
[2016-09-27 06:10] LABS: POTASSIUM 4.6 MEQ/L (3.5-5.1)
[2016-09-27] MEDS: RESP: TOBRAMYCIN SULFATE 300 MG/5 ML NEB NEB SCH ×2 (07:33→19:44)
[2016-09-27] MEDS: CHLORHEXIDINE 0.12% (ORAL KIT) 15 ML CUP MT SCH ×2 (07:38→20:09)
[2016-09-27] MEDS: SENNOSIDES SYRUP 8.8 MG/5 ML CUP PO SCH (08:11)
[2016-09-27] MEDS: DOCUSATE SODIUM 100 MG/10 ML UDC PO SCH ×2 (08:11→20:16)
[2016-09-27] MEDS: VANCOMYCIN 500 MG VIAL (FOR ORAL USE ONLY) PO SCH ×4 (08:11→20:16)
[2016-09-27] MEDS: PANTOPRAZOLE SODIUM 40 MG VIAL IV PUSH SCH ×2 (08:11→20:16)
[2016-09-27] MEDS: ASPIRIN 81 MG CHEW TAB CHEW SCH (08:12)
[2016-09-27] MEDS: HEPARIN SODIUM - SQ 10,000 UNITS/ML VIAL SQ SCH ×2 (08:12→20:16)
[2016-09-27] MEDS: CLOPIDOGREL 75 MG TAB PO SCH (08:12)
[2016-09-27] MEDS: INSULIN DETEMIR 100 UNITS/ML VIAL SQ SCH ×2 (08:12→20:16)
[2016-09-27] MEDS: SODIUM CHLORIDE 0.9% FLUSH 5 ML FLUSH IV FLUSH SCH ×2 (08:13→20:09)
[2016-09-27] MEDS: SODIUM CHLORIDE 0.9% FLUSH 5 ML FLUSH IVF SCH (08:14)
[2016-09-27] MEDS: ARTIFICIAL TEARS OPTH OINT 3.5 APPLIC/3.5 GM TUBO EACH EYE SCH ×2 (08:14→20:15)
[2016-09-27] MEDS: SODIUM CHLOR 0.9% 1000 ML INJ 1,000 ML IV SCH (08:15)
--- NOTE | 2016-09-27 10:17 | HHI.IDPN ---
Subjective Subjective Remarks Mr. Ferguson is a 66 y/o male with a medical history of CAD status post 6 vessel CABG in 2011, CHF, CAD, hypertension, diabetes mellitus type 2, obesity, and sleep apnea. On 09/07/16, patient underwent cardiac catheterization , he was found to have significant blockage requiring angioplasty and stenting. Post cardiac catheter, patient developed aphasia and right sided hemiparesis. CT of the brain show no acute process. Neurology -Dr. Nguyen consulted. Brain MRI obtained on 09/09/16 showing acute nonhemorrhagic infarction in the left sylvian region. Patient developed respiratory distress and was placed on BiPAP , subsequently intubated and placed on mechanical ventilation. developed ARF, on HD Patient was being treated for aspiration Pneumonia. Intubated September 15 Started on HD Sep 14 Infectious disease following for septic shock, aspiration Pneumonia, confirmed C. difficile colitis. Delayed entry patient seen at 9:30 am. Notes reviewed D/W RN No fevers. Tolerating CPAP HD M,W,F. Has liquid stool Small thin ET secretions BC negative Has RIJ TLC and vascath Sputum 09/17 with Pseudomonas, resistant Antibiotics Zerbaxa IV for MDR PSAE tracheobronchitis/Pneumonia Vanco oral for Cdiff Tobra nebs for MDR PSAE. Lines RIJ TLC and vascath Past Medical History reviewed Allergies: Coded Allergies: No Known Allergies (Verified , 09/07/16) Objective . Vital Signs Date Time Temp Pulse Resp B/P Pulse Ox O2 Delivery O2 Flow Rate FiO2 09/27/16 08:00 98.9 98 25 107/61 100 09/27/16 08:00 96 09/27/16 08:00 35 09/27/16 07:33 99 35 09/27/16 07:33 35 09/27/16 06:00 97 09/27/16 04:03 100 35 09/27/16 04:00 98.1 98 18 102/59 100 09/27/16 04:00 98 09/27/16 04:00 35 09/27/16 02:00 100 09/27/16 01:02 100 35 09/27/16 00:00 100 09/27/16 00:00 35 09/27/16 00:00 99.6 100 20 113/79 100 09/26/16 22:02 100 35 09/26/16 22:00 98 09/26/16 20:25 99 35 09/26/16 20:00 96 09/26/16 20:00 35 09/26/16 20:00 98.6 96 26 110/67 94 09/26/16 18:00 97 09/26/16 17:14 100 35 09/26/16 16:00 35 09/26/16 16:00 99.0 102 24 102/62 100 09/26/16 16:00 101 09/26/16 14:00 98 09/26/16 12:48 100 35 09/26/16 12:00 101 09/26/16 12:00 98.5 101 18 113/66 98 09/26/16 12:00 35 09/26/16 09/26/16 09/27/16 15:00 23:00 07:00 Intake Total 368 ml 274 ml 119 ml Output Total 10 ml 0 ml 60 ml Balance 358 ml 274 ml 59 ml IV Total 224 ml 150 ml 47 ml Tube Feeding 144 ml 124 ml 72 ml Output Urine Total 10 ml 0 ml 10 ml Stool Total 0 ml 50 ml . Laboratory Tests Test 09/26/16 09/27/16 03:50 04:45 White Blood Count 20.9 TH/MM3 19.8 TH/MM3 Red Blood Count 3.29 MIL/MM3 3.20 MIL/MM3 Hemoglobin 9.8 GM/DL 9.4 GM/DL Hematocrit 29.6 % 28.9 % Mean Corpuscular Volume 90.0 FL 90.3 FL Mean Corpuscular Hemoglobin 29.7 PG 29.3 PG Mean Corpuscular Hemoglobin 33.0 % 32.4 % Concent Red Cell Distribution Width 15.5 % 15.5 % Platelet Count 295 TH/MM3 272 TH/MM3 Mean Platelet Volume 9.0 FL 9.0 FL Neutrophils (%) (Auto) 85.5 % Lymphocytes (%) (Auto) 4.6 % Monocytes (%) (Auto) 8.3 % Eosinophils (%) (Auto) 1.5 % Basophils (%) (Auto) 0.1 % Neutrophils # (Auto) 17.8 TH/MM3 Lymphocytes # (Auto) 1.0 TH/MM3 Monocytes # (Auto) 1.7 TH/MM3 Eosinophils # (Auto) 0.3 TH/MM3 Basophils # (Auto) 0.0 TH/MM3 CBC Comment DIFF FINAL Differential Comment Laboratory Tests Test 09/26/16 09/27/16 03:50 04:45 Sodium Level 135 MEQ/L 134 MEQ/L Potassium Level 3.7 MEQ/L 4.6 MEQ/L Chloride Level 93 MEQ/L 93 MEQ/L Carbon Dioxide Level 22.7 MEQ/L 22.2 MEQ/L Anion Gap 19 MEQ/L 19 MEQ/L Blood Urea Nitrogen 91 MG/DL 111 MG/DL Creatinine 11.64 MG/DL 14.13 MG/DL Estimat Glomerular Filtration 4 ML/MIN 3 ML/MIN Rate Random Glucose 206 MG/DL 170 MG/DL Calcium Level 9.3 MG/DL 8.8 MG/DL Phosphorus Level 8.7 MG/DL Magnesium Level 2.3 MG/DL Total Bilirubin 0.6 MG/DL Aspartate Amino Transf 29 U/L (AST/SGOT) Alanine Aminotransferase 62 U/L (ALT/SGPT) Alkaline Phosphatase 98 U/L Total Protein 8.8 GM/DL Albumin 3.0 GM/DL Imaging Liver Ultrasound 09/17/16 1030 Signed Impressions: Service Date/Time: Saturday, September 17, 2016 11:01 - CONCLUSION: 1. Minimally complex cyst right mid kidney. 2. Liver mildly enlarged. Cesar Mcfadden MD Abdomen X-Ray 09/17/16 0600 Signed Impressions: Service Date/Time: Saturday, September 17, 2016 05:05 - CONCLUSION: Nonspecific abdomen appearance. Michael Ross MD Chest X-Ray 09/15/16 1621 Signed Impressions: Service Date/Time: Thursday, September 15, 2016 16:33 - CONCLUSION: 1. Uncomplicated line placement. No evidence of pneumothorax. Wesley Chaudhari MD Head CT 09/15/16 0000 Signed Impressions: Service Date/Time: Thursday, September 15, 2016 10:15 - CONCLUSION: 1. Sizable area of decreased attenuation in the left MCA distribution most consistent with subacute cortical infarct. This there is stable compared to previous MR dated 09/09/16. Sanket Gonzalez MD Central Venous Line 09/15/16 0000 Signed Impressions: Service Date/Time: Thursday, September 15, 2016 00:00 - CONCLUSION: Uncomplicated line placement as above. Wesley Chaudhari MD Abdomen/Pelvis CT 09/15/16 0000 Signed Impressions: Service Date/Time: Thursday, September 15, 2016 17:00 - CONCLUSION: 1. Gaseous distension of the stomach. 2. I do not see evidence for significant colitis. Lowell Gonzalez MD FACR Catheter Placement X-Ray 09/14/16 0000 Signed Impressions: Service Date/Time: Wednesday, September 14, 2016 00:00 - CONCLUSION: Uncomplicated line placement as above. Wesley Chaudhari MD Carotid Artery Ultrasound 09/13/16 0000 Signed Impressions: Service Date/Time: Tuesday, September 13, 2016 16:46 - CONCLUSION: Significant plaque remains evident in the carotid bifurcations. Poor visualization and difficulty velocity sampling of the proximal internal carotid arteries was again encountered. Significant carotid stenosis cannot be excluded. Nonvisualization of the vertebral arteries. Mack Brizuela MD Brain MRI 09/09/16 0000 Signed Impressions: Service Date/Time: August 16:36 - CONCLUSION: 1. Findings demonstrate an acute infarction in the left sylvian region, nonhemorrhagic. 2. Small air-fluid level right maxillary sinus and mild bilateral ethmoid sinus disease. Suresh Diaz MD Renal Ultrasound 09/08/16 0000 Signed Impressions: Service Date/Time: Thursday, September 08, 2016 16:04 - CONCLUSION: Large 6.3 cm cyst lower pole laterally left kidney. No evidence of hydronephrosis or obstructive uropathy.. Christian Cooper MD Physical Exam GENERAL: Obese male patient, sedated, on the vent. Comfortable on CPAP SKIN: No rashes, ecchymoses or lesions. Cool and dry. HEAD: Atraumatic. Normocephalic. No temporal or scalp tenderness. EYES: Pupils equal round and reactive. No scleral icterus. No injection or drainage. ENT: Intubated. Oral mucosae moist NECK: Trachea midline. Supple, nontender, no meningeal signs. Line in neck looks ok CARDIOVASCULAR: Heart sounds audible. RESPIRATORY: Clear to auscultation. Breath sounds equal bilaterally. GASTROINTESTINAL: Abdomen soft, non-tender, nondistended. MUSCULOSKELETAL: Extremities without clubbing, cyanosis, or edema. NEUROLOGICAL: Sedated Psych can not be assessed IV line sites with no evidence of infection. : Guillen in place Assessment & Plan Remarks IMPRESSION Aspiration Pneumonia, tracheobronchitis: MDR PSAE. Clostridium diff colitis Acute resp failure on vent. Acute metabolic encephalopathy: stroke, sepsis, metabolic. Acute renal failure: meds, sepsis, ATN on HD now. CAD, VA Acute stroke Recs Continue Vanco oral for Cdiff Continue Zerbaxa IV Intermittent fevers: ? consider changing lines. Follow C/S Monitor progress Weaning per CCM D/W RN covering for me this weekend. Era Becker MD Sep 27, 2016 10:17
--- NOTE | 2016-09-27 11:27 | RADRPT ---
EXAM DATE/TIME: 09/27/2016 09:24 [facility] COMPARISON: CHEST SINGLE AP, September 24, 2016, 5:05. INDICATIONS : Shortness of breath. MEDICAL HISTORY : None. Pneumonia. SURGICAL HISTORY : None ENCOUNTER: Sequela ACUITY: 1 day PAIN SCORE: Non-responsive. LOCATION: Chest FINDINGS: The patient is status post sternotomy. The ET tube, NG tube and right internal jugular central line are well placed. The cardiac silhouette is enlarged. There is mild increased density at the medial left base. The right lung is clear. CONCLUSION: 1. Tubes and lines in good position. 2. Mild suspected atelectasis or consolidation at the medial left base. Michael Garcia MD on September 27, 2016 at 11:18 Board Certified Radiologist. This report was verified electronically.
--- NOTE | 2016-09-27 12:17 | HHI.HCPN ---
Reason for visit a. To assist with evaluation and management of symptoms including: shortness of breath and debility. b. To assist medical decision maker(s) with: better understanding of current medical conditions; weighing benefits/burdens of medical treatment options; making medical treatment decisions. . Subjective/Interval History Patient seen in ICU. He remains in critical condition -intubated, sedated on mechanical ventilation. Not opening eyes to voice or tactile stimuli. Not following any commands. Severe encephalopathy. Nonpurposeful movement noted to all 4 extremities. A febrile, persistent leukocytosis WBC 19.8 -Dr. Mini Becker following. Mildly tachycardia with heart rate in the 110s. Has been tolerating CPAP trials since yesterday. Currently FiO2 of 35%. Chest x-ray today showing mild atelectasis or consolidation at the left medial base. Tube feedings were stopped over the weekend secondary to high residuals, restarted today. Laboratory today to include Hgb 9.4, platelet count 272. Sodium 134, potassium 4.6, BUN/creatinine 111/14.13. Scheduled for hemodialysis today. Liver function within normal limits. Repeat blood culture 09/21/16 with no growth in 5 days. . Family/friend interactions Telephone conversation with patient's daughter Yani, max Dubose on the other line. Participating palliative care and Dr. Robertson. Medical update provided. Discussed differences between medical extubation and withdrawal life support. Discussed concerns regarding patient's ability to protect his airway secondary to altered mental status. Reviewed reintubation option versus tracheostomy. Family interested and medical extubation and allow time for clinical improvement. Reviewed CPR in the setting of patient's critical condition. Family electing for alternate code/no cardiac code but still unclear as to whether or not reintubate if able to medically extubate. Family to continue goals of care discussion. Goals of care will be readdressed tomorrow. . Advance Directives Living Will: Never completed Health Care Surrogate: Never completed Durable Power of Professional Skateboarder: Never completed Advance Directive Specifics Health Care Surrogate(s): Max Dubose not sure if patient has completed advance directives. As per [place] statute, healthcare decision-making falls to patient's 3 children. . Documented care wishes: No advance directives or living will completed. . Significant change in goals: Alternate code/no cardiac code. Continue current medical management with hopes of medical extubation. Family electing for alternate code/no cardiac code but still unclear as to whether or not reintubate if able to medically extubate. . Objective Vital Signs Date Time Temp Pulse Resp B/P Pulse Ox O2 Delivery O2 Flow Rate FiO2 09/27/16 11:15 98 35 09/27/16 10:00 110 09/27/16 08:00 98.9 98 25 107/61 100 09/27/16 08:00 96 09/27/16 08:00 35 09/27/16 07:33 99 35 09/27/16 07:33 35 09/27/16 06:00 97 09/27/16 04:03 100 35 09/27/16 04:00 98.1 98 18 102/59 100 09/27/16 04:00 98 09/27/16 04:00 35 09/27/16 02:00 100 09/27/16 01:02 100 35 09/27/16 00:00 100 09/27/16 00:00 35 09/27/16 00:00 99.6 100 20 113/79 100 09/26/16 22:02 100 35 09/26/16 22:00 98 09/26/16 20:25 99 35 09/26/16 20:00 96 09/26/16 20:00 35 09/26/16 20:00 98.6 96 26 110/67 94 09/26/16 18:00 97 09/26/16 17:14 100 35 09/26/16 16:00 35 09/26/16 16:00 99.0 102 24 102/62 100 09/26/16 16:00 101 09/26/16 14:00 98 09/26/16 12:48 100 35 Intake & Output 09/27/16 09/27/16 07:00 19:00 Intake Total 393 ml Output Total 60 ml Balance 333 ml IV Total 197 ml Tube Feeding 196 ml Output Urine Total 10 ml Stool Total 50 ml Physical Exam CONSTITUTIONAL/GENERAL: This is an adequately nourished patient in no acute distress. Sedated, intubated on mechanical ventilation. TUBES/LINES/DRAINS: PIV's, SCDs, Guillen catheter, right IJ dialysis catheter. ETT , OG tube. Rectal tube with moderate amount of watery stool. SKIN: No jaundice, rashes, or lesions. No wounds seen anteriorly. Not diaphoretic. Dry skin. HEAD: Atraumatic. Normocephalic. ENT: Unable to evaluate hearing secondary to clinical condition. Nose without bleeding or purulent drainage. ETT in place. Moderate amount of oral secretions noted. CARDIOVASCULAR: Tachycardic with heart rate in the 110s. Irregular rate and rhythm. RESPIRATORY/CHEST: Symmetric, unlabored. coarse breath sounds anteriorly. Intubated on mechanical ventilation. GASTROINTESTINAL: Abdomen soft, large, round. Bowel sounds hypoactive. Tube feeding will help. GENITOURINARY: Without palpable bladder distension. Guillen catheter in place. MUSCULOSKELETAL: Extremities without clubbing, cyanosis. NEUROLOGICAL: Unresponsive to tactile or verbal stimuli. Not following any commands. Involuntary movement to 4 extremities noted. PSYCHIATRIC: Unable to assess secondary to clinical condition. Appears calm. . Diagnostic Tests Laboratory Laboratory Tests Test 09/25/16 09/26/16 09/27/16 05:00 03:50 04:45 White Blood Count 18.6 TH/MM3 20.9 TH/MM3 19.8 TH/MM3 (4.0-11.0) (4.0-11.0) (4.0-11.0) Red Blood Count 3.49 MIL/MM3 3.29 MIL/MM3 3.20 MIL/MM3 (4.50-5.90) (4.50-5.90) (4.50-5.90) Hemoglobin 10.3 GM/DL 9.8 GM/DL 9.4 GM/DL (13.0-17.0) (13.0-17.0) (13.0-17.0) Hematocrit 31.0 % 29.6 % 28.9 % (39.0-51.0) (39.0-51.0) (39.0-51.0) Mean Corpuscular Volume 88.7 FL 90.0 FL 90.3 FL (80.0-100.0) (80.0-100.0) (80.0-100.0) Mean Corpuscular Hemoglobin 29.5 PG 29.7 PG 29.3 PG (27.0-34.0) (27.0-34.0) (27.0-34.0) Mean Corpuscular Hemoglobin 33.3 % 33.0 % 32.4 % Concent (32.0-36.0) (32.0-36.0) (32.0-36.0) Red Cell Distribution Width 15.3 % 15.5 % 15.5 % (11.6-17.2) (11.6-17.2) (11.6-17.2) Platelet Count 306 TH/MM3 295 TH/MM3 272 TH/MM3 (150-450) (150-450) (150-450) Mean Platelet Volume 9.1 FL 9.0 FL 9.0 FL (7.0-11.0) (7.0-11.0) (7.0-11.0) Neutrophils (%) (Auto) 84.7 % 85.5 % (16.0-70.0) (16.0-70.0) Lymphocytes (%) (Auto) 4.8 % 4.6 % (9.0-44.0) (9.0-44.0) Monocytes (%) (Auto) 8.9 % (0.0-8.0) 8.3 % (0.0-8.0) Eosinophils (%) (Auto) 1.4 % (0.0-4.0) 1.5 % (0.0-4.0) Basophils (%) (Auto) 0.2 % (0.0-2.0) 0.1 % (0.0-2.0) Neutrophils # (Auto) 15.7 TH/MM3 17.8 TH/MM3 (1.8-7.7) (1.8-7.7) Lymphocytes # (Auto) 0.9 TH/MM3 1.0 TH/MM3 (1.0-4.8) (1.0-4.8) Monocytes # (Auto) 1.7 TH/MM3 1.7 TH/MM3 (0-0.9) (0-0.9) Eosinophils # (Auto) 0.3 TH/MM3 0.3 TH/MM3 (0-0.4) (0-0.4) Basophils # (Auto) 0.0 TH/MM3 0.0 TH/MM3 (0-0.2) (0-0.2) CBC Comment DIFF FINAL DIFF FINAL Differential Comment Sodium Level 135 MEQ/L 135 MEQ/L 134 MEQ/L (136-145) (136-145) (136-145) Potassium Level 3.7 MEQ/L 3.7 MEQ/L 4.6 MEQ/L (3.5-5.1) (3.5-5.1) (3.5-5.1) Chloride Level 93 MEQ/L 93 MEQ/L 93 MEQ/L (98-107) (98-107) (98-107) Carbon Dioxide Level 23.1 MEQ/L 22.7 MEQ/L 22.2 MEQ/L (21.0-32.0) (21.0-32.0) (21.0-32.0) Anion Gap 19 MEQ/L (5-15) 19 MEQ/L (5-15) 19 MEQ/L (5-15) Blood Urea Nitrogen 68 MG/DL (7-18) 91 MG/DL (7-18) 111 MG/DL (7-18) Creatinine 9.87 MG/DL 11.64 MG/DL 14.13 MG/DL (0.60-1.30) (0.60-1.30) (0.60-1.30) Estimat Glomerular Filtration 5 ML/MIN (>89) 4 ML/MIN (>89) 3 ML/MIN (>89) Rate Random Glucose 202 MG/DL 206 MG/DL 170 MG/DL (74-106) (74-106) (74-106) Calcium Level 9.0 MG/DL 9.3 MG/DL 8.8 MG/DL (8.5-10.1) (8.5-10.1) (8.5-10.1) Total Bilirubin 0.6 MG/DL 0.6 MG/DL (0.2-1.0) (0.2-1.0) Aspartate Amino Transf 34 U/L (15-37) 29 U/L (15-37) (AST/SGOT) Alanine Aminotransferase 81 U/L (12-78) 62 U/L (12-78) (ALT/SGPT) Alkaline Phosphatase 84 U/L (45-117) 98 U/L (45-117) Total Protein 8.9 GM/DL 8.8 GM/DL (6.4-8.2) (6.4-8.2) Albumin 3.2 GM/DL 3.0 GM/DL (3.4-5.0) (3.4-5.0) Phosphorus Level 8.7 MG/DL (2.5-4.9) Magnesium Level 2.3 MG/DL (1.5-2.5) Result Diagram: 09/27/16 0445 09/27/16 0445 Procedures * 09/15/06 -intubation * 09/14/16 -dialysis catheter placement . * 09/11/16 -extubation. * 09/10/16 -intubation. * 09/07/16 -cardiac catheter with angioplasty and stent placement. . Assessment and Plan Disease Oriented Problem List: (1) Acute tubular necrosis (2) Acute ischemic left MCA stroke (3) CAD (coronary artery disease) of bypass graft (4) CHF (congestive heart failure), NYHA class II (5) Liver function failure Symptom Scale: (1) Shortness of breath 0-10 Scale: Unable to quantify Comment: Reintubated 09/15/06. On mechanical ventilation. (2) Debility 0-10 Scale: Unable to quantify Comment: Secondary to CVA, acute complications, hospitalization. Pertinent Non-Medical Issues Psychosocial: . Has 2 children. Living independently prior to this hospitalization. Spiritual: Adventism. Legal: Unknown if advance directives have been completed. Ethical issues impacting care: Unknown if advance directives have been completed. . Important Contacts Max Birmingham [phone]. Son Vaibhav Salgado. Daughter Yani. . Prognosis Mr. Ferguson is a 66 y/o male with an adhesive significant cardiac history to include stenting in 2010, CAD status post 6 vessel CABG in 2011, and angioplasty and stenting in September 06. He was found to have significant blockage requiring angioplasty and stenting. 2 of 6 grafts are currently patent. Post cardiac catheter, patient developed aphasia and right sided hemiparesis. MRI of the brain showing acute nonhemorrhagic infarct. Patient was intubated and subsequently extubated secondary to respiratory failure and altered mental status. Vertical condition remains the same, he is obtunded and not following any commands. Patient with history of CKD now with acute tubular necrosis requiring renal replacement therapy. His prognosis is poor for a meaningful neurological recovery even if he is to survive this hospitalization given his age, severity of cardiac disease, complications to include stroke, and multiple comorbidities. He is at a very high risk for further decline, complications and . . Code Status: Alternative Code Plan * CODE STATUS: Alternate code/no cardiac code. * MEDICAL DECISION-MAKING: Patient incapacitated to make healthcare decisions secondary to clinical condition, unclear if he will regain. Son Sedrick not sure if patient has completed advance directives. As per [place] statute, healthcare decision-making falls to patient's 3 children. * GOALS OF CARE: 09/27/16 - Alternate code/no cardiac code. Continue current medical management with hopes of medical extubation. Family electing for alternate code/no cardiac code but still unclear as to whether or not reintubate if able to medically extubate. Will readdress tomorrow 09/28/16. Patient on day #10 of intubation. * SYMPTOMS: == Shortness of breath, patient recently intubated and extubated. Worsening clinical condition. Reintubated 09/15/16, remains on mechanical ventilation. == Debility, secondary to CVA, acute events and hospitalization. = = Anxiety, patient appears calm. * Case discussed with Dr. Robertson and bedside RN. * Palliative care contact information has been provided to patient's family. * Palliative care will continue to follow-up to assist with symptom management and to further evaluate goals of care as the clinical course evolves. . Time Spent Total Floor Time (mins): 40 (Total time to include review and summarization of medical records, physical exam, family meeting via telephone with Dr. Robertson and case discussion with Dr. Robertson and bedside RN.) >50% Counseling/Coord of Care: Yes Attestation To help prompt me to consider important information that might be impacting today's encounter and assessment, information from prior notes written by myself or my colleagues may have been "brought forward" into today's note. My signature on this note, however, is an attestation that I personally performed the exam, history, and/or decision-making noted today, and, unless otherwise indicated, the interactions with patient, family, and staff as well as the review of records all occurred today. I also attest that the listed assessment and stated plan reflect my best clinical judgment today based on the combination of historical information, prior notes, and today's exam/ interactions. When time spent is documented, it refers only to time spent today by the signer, or if indicated, combined time spent today by collaborating physician/nurse practitioner. Simran Sorto Sep 27, 2016 12:17
[2016-09-27] MEDS: GENTAMICIN SULFATE (DIALYSIS USE ONLY) 20 MG/2 ML VIAL IV PRN (13:02)
[2016-09-27] MEDS: HEPARIN SODIUM - IV 10,000 UNITS/10 ML VIAL PRN (13:02)
[2016-09-27] MEDS: SODIUM CHLOR 0.9% 1000 ML INJ 1,000 ML IV PRN (13:03)
[2016-09-27] MEDS: ALBUMIN HUMAN 25% 25 GM/100 ML BAGP IV PRN ×2 (13:03→13:04)
--- NOTE | 2016-09-27 14:42 | HHI.NPPN ---
Subjective History of Present Illness 66-year-old male with history of coronary artery disease status post CABG, osteoarthritis, diabetes, hyperlipidemia who was admitted there with unstable angina and underwent heart catheterization found to have significant blockages requiring stent and impella device, he has acute renal failure. Additional Remarks Patient on Vent Objective Data Data 09/26/16 09/27/16 19:00 07:00 Intake Total 368 ml 393 ml Output Total 10 ml 60 ml Balance 358 ml 333 ml IV Total 224 ml 197 ml Tube Feeding 144 ml 196 ml Output Urine Total 10 ml 10 ml Stool Total 50 ml Vital Signs Date Time Temp Pulse Resp B/P Pulse Ox O2 Delivery O2 Flow Rate FiO2 09/27/16 14:00 113 09/27/16 12:00 35 09/27/16 12:00 109 09/27/16 12:00 98.2 109 32 153/56 100 09/27/16 11:15 98 35 09/27/16 10:00 110 09/27/16 08:00 98.9 98 25 107/61 100 09/27/16 08:00 96 09/27/16 08:00 35 09/27/16 07:33 99 35 09/27/16 07:33 35 09/27/16 06:00 97 09/27/16 04:03 100 35 09/27/16 04:00 98.1 98 18 102/59 100 09/27/16 04:00 98 09/27/16 04:00 35 09/27/16 02:00 100 09/27/16 01:02 100 35 09/27/16 00:00 100 09/27/16 00:00 35 09/27/16 00:00 99.6 100 20 113/79 100 09/26/16 22:02 100 35 09/26/16 22:00 98 09/26/16 20:25 99 35 09/26/16 20:00 96 09/26/16 20:00 35 09/26/16 20:00 98.6 96 26 110/67 94 09/26/16 18:00 97 09/26/16 17:14 100 35 09/26/16 16:00 35 09/26/16 16:00 99.0 102 24 102/62 100 09/26/16 16:00 101 -: 09/27/16 0445 09/27/16 0445 Physical Exam General Appearance: Well Developed, Well Nourished Pulmonary Resp Exam: Crackles, Rhonchi, Decreased Bases, Diminished Breath Sounds Cardiology CV Exam: Regular, Normal Sinus Rhythm Gastrointestinal/Abdomen GI Exam: Soft, Non-Tender, Bowel Sounds Present, Distended Extremeties Extremities Exam: Moderate Edema, Pitting Edema, Dependent Edema Neurologic Neuro Exam: Sedated Assessment/Plan Problem List: (1) Acute renal failure Plan: Remains intubated Oliguric renal failure on hemodialysis M,W,F hemodialysis progress noted 2 L UF seen during hemodialysis [facility] plan discussed may need Trach vs withdrawal of care d/w Dr. Robertson has Pneumonia ceftaroline/tazobactam Pseudomonas Febrile earlier today, continue to monitor (2) Hyperkalemia Plan: Resolved (3) Chronic kidney disease Plan: He has stage III chronic kidney disease due to diabetic (4) CHF (congestive heart failure), NYHA class III Plan: Continue to monitor for improvement (5) Coronary artery disease involving [place] heart Plan: had bypass and stents (6) Hypertension, essential, benign Plan: Monitor blood pressure (7) Diabetes mellitus, type II Plan: Monitor blood glucose (8) UTI (lower urinary tract infection) (9) CVA (cerebral vascular accident) Plan: remain unresponsive moves left side more (10) Need for prophylactic vaccination and inoculation against influenza (11) Clostridium difficile infection Plan: on PO Vanco Problem Qualifiers (1) Acute renal failure: Qualified Code: N17.0 - Acute renal failure with tubular necrosis (2) Chronic kidney disease: Qualified Code: N18.4 - Chronic kidney disease, stage 4 (severe) (3) Diabetes mellitus, type II: Qualified Code: E11.22 - Type 2 diabetes mellitus with diabetic chronic kidney disease, unspecified CKD stage, unspecified 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
--- NOTE | 2016-09-27 15:08 | HHI.CCPN ---
Subjective Remarks/Hospital Course 66-year-old gentleman with a history of coronary artery disease status post CABG underwent emergent cardiac catheterization by Dr. Cummins. Postprocedure his course is complicated by aphasia and right-sided weakness. 09/08 Patient was on BIPAP 14/7 with FIO2 25%. On Precedex and heparin drips. CT brain showed last night showed no acute process. Impela was removed this morning by Dr. Cummins. T:99.9 Renal function improving with Cr:2.5 from 3.0 hyperkalemic with K 6.1 09/09: Overnight remained on BiPAP predominantly for sleep apnea. Intermittently follows commands. Will check MRI of the brain today. Creatinine slightly worsened to 2.8. Consulted nephrology, hyperkalemia resolved 09/10: Remains on BiPAP, some interval worsening of respiratory status. Patient is more tachypneic chest x-ray shows left lower lobe infiltrate .Currently sedated with 0.5 g per KG per hour of Precedex. I will discontinue Precedex. MRI brain shows acute infarct left sylvian region. Creatinine slightly worse at 3. Low-grade fever Tmax 100.2, send blood and sputum culture and start Zosyn 09/11: Patient was intubated yesterday for progressively worsening respiratory failure, hypoxemia and altered mentation. On ventilator support patient's oxygenation has improved. He moves all extremities do not following commands. Chest x-ray shows no definite infiltrates 09/12: Extubated yesterday tolerating well oxygenation varghese and protecting airway. No fevers. Urine output 3.8 L in 24 hours with creatinine worsening from 3.9 to 4.5 today. Remains aphasic not following commands 09/13: Somnolent, received Ativan for agitation overnight. Urine output 4 L in 24 hours. Labs are pending at this time. Opens eyes to verbal stimulation, remains aphasic and did not follow commands 09/14 Patient appears somnolent. On no sedation. Renal function worse today with Cr: 7.31 from 5.40 and UO: 715ml in 24hrs. T:100.9 this morning. Remains aphasic. 09/15 Patient was placed on Amio drip overnight for Afib with RVR. HD initiated yesterday with removal 2L. He is currently receiving another HD treatment. Tmax 100.9. Patient remains encephalopathic and does not follow commands. TF was held due to high residuals. 09/16 Patient was intubated yesterday for airway protection. On Fentanyl drip for sedation on Neosyn. Tmax 104. C-diff PCR positive. CT abd/pelvis showed no acute process, gaseous distention. 09/17 Patient remains intubated and sedated with Fentanyl. On Neosyn 75 mics. T: 101.8 at 4 am. 09/18 Patient remains sedated and intubated. T:101.1 last night. On Neosyn 60 mics. 09/19 No acute events overnight. Off Neosyn and is on Fentanyl infusion for sedation. T:100.5. Tolerated CPAP x 4 hrs yesterday. Patient was able to open up his eyes off sedation. 09/20 Patient remains sedated with Fentanyl and intubated. T:99.8 last night. WBC trending down. Off Neosyn. For J-tube placement by IR today. 09/21 Patient remains sedated and intubated. T:100.0 last night. s/p HD yesterday with removal 3.5L. 09/22-continues to have low-grade fever. On sedation hold open size moves all extremities do not follow commands. White count stable at 17.8 09/23/16: T 100.3, white count slightly improved 16.9. Neuro exam remains unchanged family has not decided about trach yet wants to wait a few more days 09/24 No acute events overnight. T;100.4 last night. On Fentanyl infusion for sedation. TF held for high residuals. For HD today. 09/25: no significant clinical change. still with low grade temps. mental status still poor. wbc persistently elevated. 09/26: continues with fevers. wbc uptrended overnight. no changes in severe encephalopathy. 09/27: fevers defervesced overnight. continues to be encephalopathic. I had a long conversation with his daughter today and they are considering possible extubation and transition to palliation vs. tracheostomy. Objective Vital Signs Date Time Temp Pulse Resp B/P Pulse Ox O2 Delivery O2 Flow Rate FiO2 09/27/16 14:00 113 09/27/16 12:00 35 09/27/16 12:00 98.2 32 153/56 100 Intake and Output 09/26/16 09/26/16 09/27/16 08:00 16:00 00:00 Intake Total 335 ml 368 ml 274 ml Output Total 125 ml 10 ml 0 ml Balance 210 ml 358 ml 274 ml Result Diagram: 09/27/16 0445 09/27/16 0445 Imaging Last Impressions Chest X-Ray 09/24/16 0600 Signed Impressions: Service Date/Time: Saturday, September 24, 2016 05:05 - CONCLUSION: Interval development of non-consolidative infiltrates in both lower lungs. Suresh Diaz MD Liver Ultrasound 09/17/16 1030 Signed Impressions: Service Date/Time: Saturday, September 17, 2016 11:01 - CONCLUSION: 1. Minimally complex cyst right mid kidney. 2. Liver mildly enlarged. Cesar Mcfadden MD Abdomen X-Ray 09/17/16 0600 Signed Impressions: Service Date/Time: Saturday, September 17, 2016 05:05 - CONCLUSION: Nonspecific abdomen appearance. Michael Ross MD Head CT 09/15/16 0000 Signed Impressions: Service Date/Time: Thursday, September 15, 2016 10:15 - CONCLUSION: 1. Sizable area of decreased attenuation in the left MCA distribution most consistent with subacute cortical infarct. This there is stable compared to previous MR dated 09/09/16. Sanket Gonzalez MD Central Venous Line 09/15/16 0000 Signed Impressions: Service Date/Time: Thursday, September 15, 2016 00:00 - CONCLUSION: Uncomplicated line placement as above. Wesley Chaudhari MD Abdomen/Pelvis CT 09/15/16 0000 Signed Impressions: Service Date/Time: Thursday, September 15, 2016 17:00 - CONCLUSION: 1. Gaseous distension of the stomach. 2. I do not see evidence for significant colitis. Lowell Gonzalez MD FACR Catheter Placement X-Ray 09/14/16 0000 Signed Impressions: Service Date/Time: Wednesday, September 14, 2016 00:00 - CONCLUSION: Uncomplicated line placement as above. Wesley Chaudhari MD Carotid Artery Ultrasound 09/13/16 0000 Signed Impressions: Service Date/Time: Tuesday, September 13, 2016 16:46 - CONCLUSION: Significant plaque remains evident in the carotid bifurcations. Poor visualization and difficulty velocity sampling of the proximal internal carotid arteries was again encountered. Significant carotid stenosis cannot be excluded. Nonvisualization of the vertebral arteries. Mack Brizuela MD Brain MRI 09/09/16 0000 Signed Impressions: Service Date/Time: August 16:36 - CONCLUSION: 1. Findings demonstrate an acute infarction in the left sylvian region, nonhemorrhagic. 2. Small air-fluid level right maxillary sinus and mild bilateral ethmoid sinus disease. Suresh Diaz MD Renal Ultrasound 09/08/16 0000 Signed Impressions: Service Date/Time: Thursday, September 08, 2016 16:04 - CONCLUSION: Large 6.3 cm cyst lower pole laterally left kidney. No evidence of hydronephrosis or obstructive uropathy.. Christian Cooper MD Objective Remarks GENERAL: critically ill elderly male, intubated, sedated. HEENT: nc. at. perrl. mucous membranes moist. NECK: trachea midline. No JVD CARDIOVASCULAR: Regular rate and rhythm., sinus by tele. RESPIRATORY: Breath sounds equal bilaterally. No accessory muscle use. GASTROINTESTINAL: Abdomen soft, non-tender, nondistended. MUSCULOSKELETAL: No cyanosis, or edema. NEURO: Able to open eyes and moves extremities spontaneously however he does not follow commands A/P Problem List: (1) Acute ischemic left MCA stroke ICD Code: I63.512 Status: Acute (2) Acute renal failure ICD Code: N17.9 Status: Acute (3) CHF (congestive heart failure), NYHA class III ICD Code: I50.9 Status: Acute (4) Coronary artery disease involving [place] heart ICD Code: I25.10 Status: Chronic (5) HTN (hypertension) ICD Code: I10 Status: Acute (6) CKD (chronic kidney disease) ICD Code: N18.9 Status: Acute Assessment and Plan ASSESSMENT: 66yM with CAD and now s/p Left MCA CVA with residual deficits. multiple organ systems still critically ill, including acute resp failure, encephalopathy, kidney injury, multiple nosocomial infections including pseudomonas and C.Difficile. persistent leukocytosis and fever are worrisome given maximal antibiotic therapy. poor prognosis. I do not think he will protect his airway. I talked to the family and I am happy to perform a trial of medical extubation with the understanding that if he fails and the family still wants aggressive care, we move towards immediate tracheostomy so that we can continue to progress his care, or conversion to comfort measures if they do not want to pursue tracheostomy. they are deciding this. however, they did want him to be DNR with no chest compressions if he were to sustain a cardiac arrest. Plan Neuro: Acute left MCA stroke Aphasia with right hemiparesis Metabolic encephalopathy -On Fentanyl infusion. Monitor neuro status. Ativan PRN for agitation. Daily sedation vacation -MRI brain 09/09/16-acute left sylvian region infarct. CT brain 09/07: No acute disease. -Repeat CT brain 09/15: Sizable area of decreased attenuation in the left MCA distribution most consistent with subacute cortical infarct -Continue aspirin and Plavix. Neuro was following- Cr. Patrick. -09/13 EEG: within normal. Pulm: Obstructive sleep apnea Acute respiratory failure -Continue with vent support keep sat >90% -Bronchodilators, ICU vent bundle, CPAP trials as khris. Mental status will not permit extubation at this time -on PS 15/5, working on weaning support. -Re intubated on 09/15/16 -Palliative care following CV: HTN Hyperlipidemia NSTEMI Known CAD -Monitor HR and BP keep MAP>65mmHg -Continue with ASA, Plavix. Imdur and Lopressor on hold due to hypotension -Lipitor held for elevated LFT's -s/p cardiac cath 09/07 showed multivessel disease with 2/6 grafts patent, EF 40% . s/p PCI with stents of the saphenous venous graft to the first diagonal artery. -s/p removal Impella 09/08. Cardiology- Dr. Cummins : Acute on chronic kidney disease -Monitor renal function, I/O's, avoid nephrotoxins. -HD initiated 09/14 , renal-Dr. Naidu. . Monitor CK's ( trending down) GI: Hyperkalemia-resolved -On Protonix 40mg -GI is following -Monitor LFT's ( trending down), Hepatitis profile negative on 09/14 -US Liver: Minimally complex cyst right mid kidney. Liver mildly enlarged. -Continue with TF- Nepro advance to goal rate ID: UTI with enterococcus HCAP Leukocytosis C-diff colitis Sputum cx: 09/17 Pseudomonas -Continue abx per ID ( PO Vanco, IV Zerbaxa, Zyvox, IV Diflucan, Tobra nebs). Monitor for signs of infections ( Fever, WBC) -f/u BC x 2 sets 09/21: NGTD -CT abd/pelvis: Gaseous distention, no acute process -KUB abdomen 09/17- non specific bowel gas pattern - discussed care with Dr. Becker, FREDO. certainly, lines may need to be changed if clinical suspicion for infection is high. however, fever curve downtrending, and patient is clinically stable. will hold off on this for now. Heme: -Monitor CBC Endo: DM -SSI( Medium) with accuchecks for glycemic control, Levemir 5u Q12 GI prophylaxis - on Protonix 40mg Q12 DVT prophylaxis - SCD, Heparin 5000 units sq very 12 Palliative care is following. Lines: Right Vascth placed 09/14, Right IJ CVP placed 09/15. Problem Qualifiers (1) Acute renal failure: Qualified Code: N17.0 - Acute renal failure with tubular necrosis Enoch Robertson MD Sep 27, 2016 15:08
[2016-09-28] VITALS (21 sets, daily range): BP systolic 78–141; BP diastolic 46–63; PULSE 84–107; RESP 12–20; TEMP 98.2–100.8; O2SAT 94–100
[2016-09-28] MEDS: INSULIN NovoLIN REGULAR SUPPLEMENTAL SCALE SQ SCH ×6 (00:38→22:01)
[2016-09-28] MEDS ORDERED: NOREPINEPHRINE-DEXTROSE DRIP 250 ML IV ONE (00:51)
[2016-09-28] MEDS: CHLORHEXIDINE GLUCONATE 2 % 1 PACK (2 CLOTHS) TOP SCH (02:00)
[2016-09-28] MEDS: SODIUM CHLORIDE IV SCH ×2 (04:47)
[2016-09-28] MEDS: CEFTOLOZANE IV SCH ×2 (04:47)
[2016-09-28] MEDS: TAZOBACTAM IV SCH ×2 (04:47)
[2016-09-28] MEDS: METOCLOPRAMIDE HCL 10 MG/2 ML VIAL IV PUSH SCH ×3 (04:48→22:02)
[2016-09-28 05:14] LABS: HEMATOCRIT 27.9 % (39.0-51.0); MEAN CELL VOLUME 89.4 FL (80.0-100.0); MEAN CORPUSCULAR HEMOGLOBIN 29.4 PG (27.0-34.0); MEAN CORPUSCULAR HGB CONC 32.8 % (32.0-36.0); PLATELET COUNT 278 TH/MM3 (150-450); RED BLOOD COUNT 3.12 MIL/MM3 (4.50-5.90); REVIEW FLAG FINAL; WHITE BLOOD COUNT 17.1 TH/MM3 (4.0-11.0)
[2016-09-28 05:40] LABS: BICARBONATE 24.2 MEQ/L (21.0-32.0); POTASSIUM 3.7 MEQ/L (3.5-5.1)
[2016-09-28] MEDS: CHLORHEXIDINE 0.12% (ORAL KIT) 15 ML CUP MT SCH ×2 (07:12→20:41)
[2016-09-28] MEDS: PANTOPRAZOLE SODIUM 40 MG VIAL IV PUSH SCH ×2 (07:55→20:42)
[2016-09-28] MEDS: DOCUSATE SODIUM 100 MG/10 ML UDC PO SCH ×2 (08:00→20:41)
[2016-09-28] MEDS: ASPIRIN 81 MG CHEW TAB CHEW SCH (08:00)
[2016-09-28] MEDS: INSULIN DETEMIR 100 UNITS/ML VIAL SQ SCH ×2 (08:00→20:41)
[2016-09-28] MEDS: HEPARIN SODIUM - SQ 10,000 UNITS/ML VIAL SQ SCH ×2 (08:00→20:42)
[2016-09-28] MEDS: CLOPIDOGREL 75 MG TAB PO SCH (08:00)
[2016-09-28] MEDS: SENNOSIDES SYRUP 8.8 MG/5 ML CUP PO SCH (08:00)
[2016-09-28] MEDS: SODIUM CHLORIDE 0.9% FLUSH 5 ML FLUSH IV FLUSH SCH ×2 (08:01→20:41)
[2016-09-28] MEDS: ARTIFICIAL TEARS OPTH OINT 3.5 APPLIC/3.5 GM TUBO EACH EYE SCH ×2 (08:01→20:41)
[2016-09-28] MEDS: SODIUM CHLORIDE 0.9% FLUSH 5 ML FLUSH IVF SCH (08:01)
[2016-09-28] MEDS: VANCOMYCIN 500 MG VIAL (FOR ORAL USE ONLY) PO SCH ×4 (08:01→20:42)
[2016-09-28] MEDS: SODIUM CHLOR 0.9% 1000 ML INJ 1,000 ML IV SCH (08:02)
[2016-09-28] MEDS: RESP: TOBRAMYCIN SULFATE 300 MG/5 ML NEB NEB SCH ×2 (08:15→19:29)
--- NOTE | 2016-09-28 11:35 | HHI.IDPN ---
Subjective Subjective Remarks Mr. Ferguson is a 66 y/o male with a medical history of CAD status post 6 vessel CABG in 2011, CHF, CAD, hypertension, diabetes mellitus type 2, obesity, and sleep apnea. On 09/07/16, patient underwent cardiac catheterization , he was found to have significant blockage requiring angioplasty and stenting. Post cardiac catheter, patient developed aphasia and right sided hemiparesis. CT of the brain show no acute process. Neurology -Dr. Nguyen consulted. Brain MRI obtained on 09/09/16 showing acute nonhemorrhagic infarction in the left sylvian region. Patient developed respiratory distress and was placed on BiPAP , subsequently intubated and placed on mechanical ventilation. developed ARF, on HD Patient was being treated for aspiration Pneumonia. Intubated September 15 Started on HD Sep 14 Infectious disease following for septic shock, aspiration Pneumonia, confirmed C. difficile colitis. Delayed entry patient seen at 9:30 am. Notes reviewed D/W RN No fevers. Tolerating CPAP HD M,W,F. Has liquid stool Small thin ET secretions BC negative Has RIJ TLC and vascath Sputum 09/17 with Pseudomonas, resistant Antibiotics Zerbaxa IV for MDR PSAE tracheobronchitis/Pneumonia Vanco oral for Cdiff Tobra nebs for MDR PSAE. Lines RIJ TLC and vascath Past Medical History reviewed Allergies: Coded Allergies: No Known Allergies (Verified , 09/07/16) Objective . Vital Signs Date Time Temp Pulse Resp B/P Pulse Ox O2 Delivery O2 Flow Rate FiO2 09/28/16 10:00 100 09/28/16 08:15 35 09/28/16 08:15 100 35 09/28/16 08:00 100 09/28/16 08:00 98.9 100 20 95/51 100 09/28/16 08:00 35 09/28/16 06:00 91 09/28/16 04:53 98 35 09/28/16 04:00 35 09/28/16 04:00 84 09/28/16 04:00 100.3 84 18 141/63 100 09/28/16 02:00 91 09/28/16 01:39 99 35 09/28/16 01:30 127/58 09/28/16 00:00 35 09/28/16 00:00 100.8 107 18 78/56 97 09/28/16 00:00 107 09/27/16 22:03 100 35 09/27/16 22:00 104 09/27/16 20:00 109 09/27/16 20:00 99.5 109 21 90/53 99 09/27/16 20:00 35 09/27/16 19:44 100 35 09/27/16 18:00 108 09/27/16 16:51 100 35 09/27/16 16:00 98.5 106 24 107/54 100 09/27/16 16:00 35 09/27/16 16:00 103 09/27/16 14:00 113 09/27/16 12:00 35 09/27/16 12:00 109 09/27/16 12:00 98.2 109 32 153/56 100 09/27/16 09/27/16 09/28/16 15:00 23:00 07:00 Intake Total 301 ml 462 ml 366 ml Output Total 50 ml 2510.0 ml 210.0 ml Balance 251 ml -2048.0 ml 156.0 ml IV Total 167 ml 254 ml 169 ml Tube Feeding 134 ml 148 ml 137 ml Other 60 ml 60 ml Output Urine Total 50 ml 10 ml 10 ml Stool Total 200 ml 200 ml Tube Feeding Residual Discard 0 ml 0 ml Hemodialysis 2300 ml . Laboratory Tests Test 09/27/16 09/28/16 04:45 04:55 White Blood Count 19.8 TH/MM3 17.1 TH/MM3 Red Blood Count 3.20 MIL/MM3 3.12 MIL/MM3 Hemoglobin 9.4 GM/DL 9.2 GM/DL Hematocrit 28.9 % 27.9 % Mean Corpuscular Volume 90.3 FL 89.4 FL Mean Corpuscular Hemoglobin 29.3 PG 29.4 PG Mean Corpuscular Hemoglobin 32.4 % 32.8 % Concent Red Cell Distribution Width 15.5 % 15.0 % Platelet Count 272 TH/MM3 278 TH/MM3 Mean Platelet Volume 9.0 FL 8.3 FL Laboratory Tests Test 09/27/16 09/28/16 04:45 04:55 Sodium Level 134 MEQ/L 137 MEQ/L Potassium Level 4.6 MEQ/L 3.7 MEQ/L Chloride Level 93 MEQ/L 94 MEQ/L Carbon Dioxide Level 22.2 MEQ/L 24.2 MEQ/L Anion Gap 19 MEQ/L 19 MEQ/L Blood Urea Nitrogen 111 MG/DL 78 MG/DL Creatinine 14.13 MG/DL 10.11 MG/DL Estimat Glomerular Filtration 3 ML/MIN 5 ML/MIN Rate Random Glucose 170 MG/DL 195 MG/DL Calcium Level 8.8 MG/DL 9.0 MG/DL Lactic Acid Level 1.0 mmol/L Imaging Liver Ultrasound 09/17/16 1030 Signed Impressions: Service Date/Time: Saturday, September 17, 2016 11:01 - CONCLUSION: 1. Minimally complex cyst right mid kidney. 2. Liver mildly enlarged. Cesar Mcfadden MD Abdomen X-Ray 09/17/16 0600 Signed Impressions: Service Date/Time: Saturday, September 17, 2016 05:05 - CONCLUSION: Nonspecific abdomen appearance. Michael Ross MD Chest X-Ray 09/15/16 1621 Signed Impressions: Service Date/Time: Thursday, September 15, 2016 16:33 - CONCLUSION: 1. Uncomplicated line placement. No evidence of pneumothorax. Wesley Chaudhari MD Head CT 09/15/16 0000 Signed Impressions: Service Date/Time: Thursday, September 15, 2016 10:15 - CONCLUSION: 1. Sizable area of decreased attenuation in the left MCA distribution most consistent with subacute cortical infarct. This there is stable compared to previous MR dated 09/09/16. Sanket Gonzalez MD Central Venous Line 09/15/16 0000 Signed Impressions: Service Date/Time: Thursday, September 15, 2016 00:00 - CONCLUSION: Uncomplicated line placement as above. Wesley Chaudhari MD Abdomen/Pelvis CT 09/15/16 0000 Signed Impressions: Service Date/Time: Thursday, September 15, 2016 17:00 - CONCLUSION: 1. Gaseous distension of the stomach. 2. I do not see evidence for significant colitis. Lowell Gonzalez MD FACR Catheter Placement X-Ray 09/14/16 0000 Signed Impressions: Service Date/Time: Wednesday, September 14, 2016 00:00 - CONCLUSION: Uncomplicated line placement as above. Wesley Chaudhari MD Carotid Artery Ultrasound 09/13/16 0000 Signed Impressions: Service Date/Time: Tuesday, September 13, 2016 16:46 - CONCLUSION: Significant plaque remains evident in the carotid bifurcations. Poor visualization and difficulty velocity sampling of the proximal internal carotid arteries was again encountered. Significant carotid stenosis cannot be excluded. Nonvisualization of the vertebral arteries. Mack Brizuela MD Brain MRI 09/09/16 0000 Signed Impressions: Service Date/Time: August 16:36 - CONCLUSION: 1. Findings demonstrate an acute infarction in the left sylvian region, nonhemorrhagic. 2. Small air-fluid level right maxillary sinus and mild bilateral ethmoid sinus disease. Suresh Diaz MD Renal Ultrasound 09/08/16 0000 Signed Impressions: Service Date/Time: Thursday, September 08, 2016 16:04 - CONCLUSION: Large 6.3 cm cyst lower pole laterally left kidney. No evidence of hydronephrosis or obstructive uropathy.. Christian Cooper MD Physical Exam GENERAL: Obese male patient, sedated, on the vent. Comfortable on CPAP SKIN: No rashes, ecchymoses or lesions. Cool and dry. HEAD: Atraumatic. Normocephalic. No temporal or scalp tenderness. EYES: Pupils equal round and reactive. No scleral icterus. No injection or drainage. ENT: Intubated. Oral mucosae moist NECK: Trachea midline. Supple, nontender, no meningeal signs. Line in neck looks ok CARDIOVASCULAR: Heart sounds audible. RESPIRATORY: Clear to auscultation. Breath sounds equal bilaterally. GASTROINTESTINAL: Abdomen soft, non-tender, nondistended. MUSCULOSKELETAL: Extremities without clubbing, cyanosis, or edema. NEUROLOGICAL: Sedated Psych can not be assessed IV line sites with no evidence of infection. : Guillen in place Assessment & Plan Remarks IMPRESSION Aspiration Pneumonia, tracheobronchitis: MDR PSAE. Clostridium diff colitis Acute resp failure on vent. Acute metabolic encephalopathy: stroke, sepsis, metabolic. Acute renal failure: meds, sepsis, ATN on HD now. CAD, [place] Acute stroke Recs Continue Vanco oral for Cdiff Continue Broderick nebs (stop date in chart for MDR PSAE) DC Zerbaxa IV Continue broderick nebs. CXR reviewed, not much secretions. Reviewed with : agree to stop antibiotics and observe clinically on above regimen. Intermittent fevers: ? drug fever vs underlying Cdiff. D/W RN d/w Will follow prn. If new fevers or change s.o sepsis please call back sooner. Era Becker MD Sep 28, 2016 11:35
--- NOTE | 2016-09-28 16:52 | HHI.HCPN ---
Reason for visit a. To assist with evaluation and management of symptoms including: shortness of breath and debility. b. To assist medical decision maker(s) with: better understanding of current medical conditions; weighing benefits/burdens of medical treatment options; making medical treatment decisions. . Subjective/Interval History Patient seen in ICU. He remains in critical condition -intubated, sedated on mechanical ventilation. Not opening eyes to voice or tactile stimuli. Not following any commands. Severe encephalopathy. Nonpurposeful movement noted to all 4 extremities. Febrile, max temp 100.8, persistent leukocytosis WBC 17.1 -Dr. Mini Becker following. Mildly tachycardia with heart rate in the 100s. Has been tolerating CPAP trials. Laboratory today to include Hgb 9.9, platelet count 268. Sodium 137, potassium 3.7, BUN/creatinine 78/10.11. . Family/friend interactions Telephone conversation with with patient's daughter Yani x2, son Sedrick x2 and Vaibhav x1. Medical update provided. Review current medical management and options of treatment. Discussed continuation of aggressive care versus transition to comfort directed care given patient's poor prognosis for a meaningful recovery. Family at this time electing to attempt medical extubation , NO trach, NO reintubate in the event that patient is unable to maintain his airways or acute respiratory distress. After medical extubation, family electing for a full DNR/DNI; however, family is not ready to transition patient to comfort directed care. They will like to continue aggressive management short of no code with the understanding that patient's life expectancy is short given his multiple medical issues. Discussed that patient is not likely to survive to discharge. Family verbalized understanding. Case discussed with Dr. Robertson and bedside RN. . Advance Directives Living Will: Never completed Health Care Surrogate: Never completed Durable Power of Public Works Supervisor: Never completed Advance Directive Specifics Health Care Surrogate(s): Max Dubose not sure if patient has completed advance directives. As per [place] statute, healthcare decision-making falls to patient's 3 children. . Documented care wishes: No advance directives or living will completed. . Significant change in goals: No code after medical extubation. Continue aggressive care short of no code in order to allow time for clinical improvement. . Objective Vital Signs Date Time Temp Pulse Resp B/P Pulse Ox O2 Delivery O2 Flow Rate FiO2 3/14/17 16:14 99 35 09/28/16 16:00 101 09/28/16 16:00 98.2 101 12 101/46 95 09/28/16 16:00 35 09/28/16 14:00 98 09/28/16 12:19 97 55 09/28/16 12:00 101 09/28/16 12:00 99.9 100 15 110/59 100 09/28/16 12:00 35 09/28/16 10:00 100 09/28/16 08:15 35 09/28/16 08:15 100 35 09/28/16 08:00 100 09/28/16 08:00 98.9 100 20 95/51 100 09/28/16 08:00 35 09/28/16 06:00 91 09/28/16 04:53 98 35 09/28/16 04:00 35 09/28/16 04:00 84 09/28/16 04:00 100.3 84 18 141/63 100 09/28/16 02:00 91 09/28/16 01:39 99 35 09/28/16 01:30 127/58 09/28/16 00:00 35 09/28/16 00:00 100.8 107 18 78/56 97 09/28/16 00:00 107 09/27/16 22:03 100 35 09/27/16 22:00 104 09/27/16 20:00 109 09/27/16 20:00 99.5 109 21 90/53 99 09/27/16 20:00 35 09/27/16 19:44 100 35 09/27/16 18:00 108 09/27/16 16:51 100 35 Intake & Output 09/28/16 09/28/16 07:00 19:00 Intake Total 828 ml 339 ml Output Total 420.0 ml 50.0 ml Balance 408.0 ml 289.0 ml IV Total 423 ml 112 ml Tube Feeding 285 ml 227 ml Other 120 ml Output Urine Total 20 ml Stool Total 400 ml 50 ml Tube Feeding Residual Discard 0 ml 0 ml Physical Exam CONSTITUTIONAL/GENERAL: This is an adequately nourished patient in no acute distress. Sedated, intubated on mechanical ventilation. TUBES/LINES/DRAINS: PIV's, SCDs, Guillen catheter, right IJ dialysis catheter. ETT , OG tube. Rectal tube with moderate amount of watery stool. SKIN: No jaundice, rashes, or lesions. No wounds seen anteriorly. Not diaphoretic. Dry skin. HEAD: Atraumatic. Normocephalic. ENT: Unable to evaluate hearing secondary to clinical condition. Nose without bleeding or purulent drainage. ETT in place. Moderate amount of oral secretions noted. CARDIOVASCULAR: Tachycardic with heart rate in the 110s. Irregular rate and rhythm. RESPIRATORY/CHEST: Symmetric, unlabored. coarse breath sounds anteriorly. Intubated on mechanical ventilation. GASTROINTESTINAL: Abdomen soft, large, round. Bowel sounds hypoactive. Tube feeding will help. GENITOURINARY: Without palpable bladder distension. Guillen catheter in place. MUSCULOSKELETAL: Extremities without clubbing, cyanosis. NEUROLOGICAL: Unresponsive to tactile or verbal stimuli. Not following any commands. Involuntary movement to 4 extremities noted. PSYCHIATRIC: Unable to assess secondary to clinical condition. Appears calm. . Diagnostic Tests Laboratory Laboratory Tests Test 09/26/16 09/27/16 09/28/16 03:50 04:45 04:55 White Blood Count 20.9 TH/MM3 19.8 TH/MM3 17.1 TH/MM3 (4.0-11.0) (4.0-11.0) (4.0-11.0) Red Blood Count 3.29 MIL/MM3 3.20 MIL/MM3 3.12 MIL/MM3 (4.50-5.90) (4.50-5.90) (4.50-5.90) Hemoglobin 9.8 GM/DL 9.4 GM/DL 9.2 GM/DL (13.0-17.0) (13.0-17.0) (13.0-17.0) Hematocrit 29.6 % 28.9 % 27.9 % (39.0-51.0) (39.0-51.0) (39.0-51.0) Mean Corpuscular Volume 90.0 FL 90.3 FL 89.4 FL (80.0-100.0) (80.0-100.0) (80.0-100.0) Mean Corpuscular Hemoglobin 29.7 PG 29.3 PG 29.4 PG (27.0-34.0) (27.0-34.0) (27.0-34.0) Mean Corpuscular Hemoglobin 33.0 % 32.4 % 32.8 % Concent (32.0-36.0) (32.0-36.0) (32.0-36.0) Red Cell Distribution Width 15.5 % 15.5 % 15.0 % (11.6-17.2) (11.6-17.2) (11.6-17.2) Platelet Count 295 TH/MM3 272 TH/MM3 278 TH/MM3 (150-450) (150-450) (150-450) Mean Platelet Volume 9.0 FL 9.0 FL 8.3 FL (7.0-11.0) (7.0-11.0) (7.0-11.0) Neutrophils (%) (Auto) 85.5 % (16.0-70.0) Lymphocytes (%) (Auto) 4.6 % (9.0-44.0) Monocytes (%) (Auto) 8.3 % (0.0-8.0) Eosinophils (%) (Auto) 1.5 % (0.0-4.0) Basophils (%) (Auto) 0.1 % (0.0-2.0) Neutrophils # (Auto) 17.8 TH/MM3 (1.8-7.7) Lymphocytes # (Auto) 1.0 TH/MM3 (1.0-4.8) Monocytes # (Auto) 1.7 TH/MM3 (0-0.9) Eosinophils # (Auto) 0.3 TH/MM3 (0-0.4) Basophils # (Auto) 0.0 TH/MM3 (0-0.2) CBC Comment DIFF FINAL Differential Comment Sodium Level 135 MEQ/L 134 MEQ/L 137 MEQ/L (136-145) (136-145) (136-145) Potassium Level 3.7 MEQ/L 4.6 MEQ/L 3.7 MEQ/L (3.5-5.1) (3.5-5.1) (3.5-5.1) Chloride Level 93 MEQ/L 93 MEQ/L 94 MEQ/L (98-107) (98-107) (98-107) Carbon Dioxide Level 22.7 MEQ/L 22.2 MEQ/L 24.2 MEQ/L (21.0-32.0) (21.0-32.0) (21.0-32.0) Anion Gap 19 MEQ/L (5-15) 19 MEQ/L (5-15) 19 MEQ/L (5-15) Blood Urea Nitrogen 91 MG/DL (7-18) 111 MG/DL 78 MG/DL (7-18) (7-18) Creatinine 11.64 MG/DL 14.13 MG/DL 10.11 MG/DL (0.60-1.30) (0.60-1.30) (0.60-1.30) Estimat Glomerular Filtration 4 ML/MIN (>89) 3 ML/MIN (>89) 5 ML/MIN (>89) Rate Random Glucose 206 MG/DL 170 MG/DL 195 MG/DL (74-106) (74-106) (74-106) Calcium Level 9.3 MG/DL 8.8 MG/DL 9.0 MG/DL (8.5-10.1) (8.5-10.1) (8.5-10.1) Phosphorus Level 8.7 MG/DL (2.5-4.9) Magnesium Level 2.3 MG/DL (1.5-2.5) Total Bilirubin 0.6 MG/DL (0.2-1.0) Aspartate Amino Transf 29 U/L (15-37) (AST/SGOT) Alanine Aminotransferase 62 U/L (12-78) (ALT/SGPT) Alkaline Phosphatase 98 U/L (45-117) Total Protein 8.8 GM/DL (6.4-8.2) Albumin 3.0 GM/DL (3.4-5.0) Lactic Acid Level 1.0 mmol/L (0.4-2.0) Result Diagram: 09/28/16 0455 09/28/16 0455 Imaging Last 48 hours Impressions Chest X-Ray 09/27/16 0000 Signed Impressions: Service Date/Time: Tuesday, September 27, 2016 09:24 - CONCLUSION: 1. Tubes and lines in good position. 2. Mild suspected atelectasis or consolidation at the medial left base. Michael Garcia MD Procedures * 09/15/06 -intubation * 09/14/16 -dialysis catheter placement . * 09/11/16 -extubation. * 09/10/16 -intubation. * 09/07/16 -cardiac catheter with angioplasty and stent placement. . Assessment and Plan Disease Oriented Problem List: (1) Acute tubular necrosis (2) Acute ischemic left MCA stroke (3) CAD (coronary artery disease) of bypass graft (4) CHF (congestive heart failure), NYHA class II (5) Liver function failure Symptom Scale: (1) Shortness of breath 0-10 Scale: Unable to quantify Comment: Reintubated 09/15/06. On mechanical ventilation. (2) Debility 0-10 Scale: Unable to quantify Comment: Secondary to CVA, acute complications, hospitalization. Pertinent Non-Medical Issues Psychosocial: . Has 2 children. Living independently prior to this hospitalization. Spiritual: Alevism. Legal: Unknown if advance directives have been completed. Ethical issues impacting care: Unknown if advance directives have been completed. . Important Contacts Max Birmingham [phone]. Son Vaibhav Salgado. Daughter Yani. . Prognosis Mr. Ferguson is a 66 y/o male with an adhesive significant cardiac history to include stenting in 2010, CAD status post 6 vessel CABG in 2011, and angioplasty and stenting in September 06. He was found to have significant blockage requiring angioplasty and stenting. 2 of 6 grafts are currently patent. Post cardiac catheter, patient developed aphasia and right sided hemiparesis. MRI of the brain showing acute nonhemorrhagic infarct. Patient was intubated and subsequently extubated secondary to respiratory failure and altered mental status. Vertical condition remains the same, he is obtunded and not following any commands. Patient with history of CKD now with acute tubular necrosis requiring renal replacement therapy. His prognosis is poor for a meaningful neurological recovery even if he is to survive this hospitalization given his age, severity of cardiac disease, complications to include stroke, and multiple comorbidities. He is at a very high risk for further decline, complications and . . Code Status: No Code Plan * CODE STATUS: No code. DNR/DNI after medical extubation. * MEDICAL DECISION-MAKING: Patient incapacitated to make healthcare decisions secondary to clinical condition, unclear if he will regain. Max Dubose not sure if patient has completed advance directives. As per [place] statute, healthcare decision-making falls to patient's 3 children. * GOALS OF CARE: 09/28/16. Family at this time electing to attempt medical extubation in the incoming days, NO trach, NO reintubate in the event that patient is unable to maintain his airway or acute respiratory distress. After medical extubation, family electing for DNR/DNI; however, family is not ready to transition patient to comfort directed care at this time. They will like to continue aggressive management short of no code with the understanding that patient's life expectancy is short (hours to days) given his multiple medical issues. Discussed that patient is not likely to survive to discharge. Telephone conversation with with patient's daughter Yani x2, son Sedrick x2 and Vaibhav x1. Medical update provided. Review current medical management and options of treatment. * Case discussed with Dr. Robertson and bedside RN. * SYMPTOMS: == Shortness of breath, patient recently intubated and extubated. Worsening clinical condition. Reintubated 09/15/16, remains on mechanical ventilation. == Debility, secondary to CVA, acute events and hospitalization. = = Anxiety, patient appears calm. * Palliative care contact information has been provided to patient's family. * Palliative care will continue to follow-up to assist with symptom management and to further evaluate goals of care as the clinical course evolves. . Time Spent Total Floor Time (mins): 45 (Total time to include review of medical records, physical exam, telephone conversation with Yani 2, telephone conversation with Sedrick 2, telephone conversation with Vaibhav 1 and case discussion with Dr. Robertson and bedside RN.) >50% Counseling/Coord of Care: Yes Attestation To help prompt me to consider important information that might be impacting today's encounter and assessment, information from prior notes written by myself or my colleagues may have been "brought forward" into today's note. My signature on this note, however, is an attestation that I personally performed the exam, history, and/or decision-making noted today, and, unless otherwise indicated, the interactions with patient, family, and staff as well as the review of records all occurred today. I also attest that the listed assessment and stated plan reflect my best clinical judgment today based on the combination of historical information, prior notes, and today's exam/ interactions. When time spent is documented, it refers only to time spent today by the signer, or if indicated, combined time spent today by collaborating physician/nurse practitioner. Simran Sorto Sep 28, 2016 16:52
--- NOTE | 2016-09-28 16:58 | HHI.CCPN ---
Subjective Remarks/Hospital Course 66-year-old gentleman with a history of coronary artery disease status post CABG underwent emergent cardiac catheterization by Dr. Cummins. Postprocedure his course is complicated by aphasia and right-sided weakness. 09/08 Patient was on BIPAP 14/7 with FIO2 25%. On Precedex and heparin drips. CT brain showed last night showed no acute process. Impela was removed this morning by Dr. Cummins. T:99.9 Renal function improving with Cr:2.5 from 3.0 hyperkalemic with K 6.1 09/09: Overnight remained on BiPAP predominantly for sleep apnea. Intermittently follows commands. Will check MRI of the brain today. Creatinine slightly worsened to 2.8. Consulted nephrology, hyperkalemia resolved 09/10: Remains on BiPAP, some interval worsening of respiratory status. Patient is more tachypneic chest x-ray shows left lower lobe infiltrate .Currently sedated with 0.5 g per KG per hour of Precedex. I will discontinue Precedex. MRI brain shows acute infarct left sylvian region. Creatinine slightly worse at 3. Low-grade fever Tmax 100.2, send blood and sputum culture and start Zosyn 09/11: Patient was intubated yesterday for progressively worsening respiratory failure, hypoxemia and altered mentation. On ventilator support patient's oxygenation has improved. He moves all extremities do not following commands. Chest x-ray shows no definite infiltrates 09/12: Extubated yesterday tolerating well oxygenation varghese and protecting airway. No fevers. Urine output 3.8 L in 24 hours with creatinine worsening from 3.9 to 4.5 today. Remains aphasic not following commands 09/13: Somnolent, received Ativan for agitation overnight. Urine output 4 L in 24 hours. Labs are pending at this time. Opens eyes to verbal stimulation, remains aphasic and did not follow commands 09/14 Patient appears somnolent. On no sedation. Renal function worse today with Cr: 7.31 from 5.40 and UO: 715ml in 24hrs. T:100.9 this morning. Remains aphasic. 09/15 Patient was placed on Amio drip overnight for Afib with RVR. HD initiated yesterday with removal 2L. He is currently receiving another HD treatment. Tmax 100.9. Patient remains encephalopathic and does not follow commands. TF was held due to high residuals. 09/16 Patient was intubated yesterday for airway protection. On Fentanyl drip for sedation on Neosyn. Tmax 104. C-diff PCR positive. CT abd/pelvis showed no acute process, gaseous distention. 09/17 Patient remains intubated and sedated with Fentanyl. On Neosyn 75 mics. T: 101.8 at 4 am. 09/18 Patient remains sedated and intubated. T:101.1 last night. On Neosyn 60 mics. 09/19 No acute events overnight. Off Neosyn and is on Fentanyl infusion for sedation. T:100.5. Tolerated CPAP x 4 hrs yesterday. Patient was able to open up his eyes off sedation. 09/20 Patient remains sedated with Fentanyl and intubated. T:99.8 last night. WBC trending down. Off Neosyn. For J-tube placement by IR today. 09/21 Patient remains sedated and intubated. T:100.0 last night. s/p HD yesterday with removal 3.5L. 09/22-continues to have low-grade fever. On sedation hold open size moves all extremities do not follow commands. White count stable at 17.8 09/23/16: T 100.3, white count slightly improved 16.9. Neuro exam remains unchanged family has not decided about trach yet wants to wait a few more days 09/24 No acute events overnight. T;100.4 last night. On Fentanyl infusion for sedation. TF held for high residuals. For HD today. 09/25: no significant clinical change. still with low grade temps. mental status still poor. wbc persistently elevated. 09/26: continues with fevers. wbc uptrended overnight. no changes in severe encephalopathy. 09/27: fevers defervesced overnight. continues to be encephalopathic. I had a long conversation with his daughter today and they are considering possible extubation and transition to palliation vs. tracheostomy. 09/28: no clinical change. failed SBT for tachypnea and RSBI > 105. per family discussions, will plan on medical extubation when he passes SBT in near future, with the understanding that when he is extubated, his code status will change to DNR/DNI and if he fails extubation, we will make him comfortable and pursue palliation. Objective Vital Signs Date Time Temp Pulse Resp B/P Pulse Ox O2 Delivery O2 Flow Rate FiO2 09/28/16 16:14 99 35 09/28/16 16:00 101 09/28/16 16:00 98.2 12 101/46 Intake and Output 09/27/16 09/27/16 09/28/16 08:00 16:00 00:00 Intake Total 119 ml 301 ml 462 ml Output Total 60 ml 2350 ml 210.0 ml Balance 59 ml -2049 ml 252.0 ml Result Diagram: 09/28/16 0455 09/28/16 0455 Imaging Last Impressions Chest X-Ray 09/24/16 0600 Signed Impressions: Service Date/Time: Saturday, September 24, 2016 05:05 - CONCLUSION: Interval development of non-consolidative infiltrates in both lower lungs. Suresh Diaz MD Liver Ultrasound 09/17/16 1030 Signed Impressions: Service Date/Time: Saturday, September 17, 2016 11:01 - CONCLUSION: 1. Minimally complex cyst right mid kidney. 2. Liver mildly enlarged. Cesar Mcfadden MD Abdomen X-Ray 09/17/16 0600 Signed Impressions: Service Date/Time: Saturday, September 17, 2016 05:05 - CONCLUSION: Nonspecific abdomen appearance. Michael Ross MD Head CT 09/15/16 0000 Signed Impressions: Service Date/Time: Thursday, September 15, 2016 10:15 - CONCLUSION: 1. Sizable area of decreased attenuation in the left MCA distribution most consistent with subacute cortical infarct. This there is stable compared to previous MR dated 09/09/16. Sanket Gonzalez MD Central Venous Line 09/15/16 0000 Signed Impressions: Service Date/Time: Thursday, September 15, 2016 00:00 - CONCLUSION: Uncomplicated line placement as above. Wesley Chaudhari MD Abdomen/Pelvis CT 09/15/16 0000 Signed Impressions: Service Date/Time: Thursday, September 15, 2016 17:00 - CONCLUSION: 1. Gaseous distension of the stomach. 2. I do not see evidence for significant colitis. Lowell Gonzalez MD FACR Catheter Placement X-Ray 09/14/16 0000 Signed Impressions: Service Date/Time: Wednesday, September 14, 2016 00:00 - CONCLUSION: Uncomplicated line placement as above. Wesley Chaudhari MD Carotid Artery Ultrasound 09/13/16 0000 Signed Impressions: Service Date/Time: Tuesday, September 13, 2016 16:46 - CONCLUSION: Significant plaque remains evident in the carotid bifurcations. Poor visualization and difficulty velocity sampling of the proximal internal carotid arteries was again encountered. Significant carotid stenosis cannot be excluded. Nonvisualization of the vertebral arteries. Mack Brizuela MD Brain MRI 09/09/16 0000 Signed Impressions: Service Date/Time: August 16:36 - CONCLUSION: 1. Findings demonstrate an acute infarction in the left sylvian region, nonhemorrhagic. 2. Small air-fluid level right maxillary sinus and mild bilateral ethmoid sinus disease. Suresh Diaz MD Renal Ultrasound 09/08/16 0000 Signed Impressions: Service Date/Time: Thursday, September 08, 2016 16:04 - CONCLUSION: Large 6.3 cm cyst lower pole laterally left kidney. No evidence of hydronephrosis or obstructive uropathy.. Christian Cooper MD Objective Remarks GENERAL: critically ill elderly male, intubated, sedated. HEENT: nc. at. perrl. mucous membranes moist. NECK: trachea midline. No JVD CARDIOVASCULAR: Regular rate and rhythm., sinus by tele. RESPIRATORY: Breath sounds equal bilaterally. No accessory muscle use. GASTROINTESTINAL: Abdomen soft, non-tender, nondistended. MUSCULOSKELETAL: No cyanosis, or edema. NEURO: Able to open eyes and moves extremities spontaneously however he does not follow commands A/P Problem List: (1) Acute ischemic left MCA stroke ICD Code: I63.512 Status: Acute (2) Acute renal failure ICD Code: N17.9 Status: Acute (3) CHF (congestive heart failure), NYHA class III ICD Code: I50.9 Status: Acute (4) Coronary artery disease involving [place] heart ICD Code: I25.10 Status: Chronic (5) HTN (hypertension) ICD Code: I10 Status: Acute (6) CKD (chronic kidney disease) ICD Code: N18.9 Status: Acute Assessment and Plan ASSESSMENT: 66yM with CAD and now s/p Left MCA CVA with residual deficits. multiple organ systems still critically ill, including acute resp failure, encephalopathy, kidney injury, multiple nosocomial infections including pseudomonas and C.Difficile. poor prognosis. I do not think he will protect his airway. After long discussions with his family, plan to pursue trial of extubation when medically necessary and if he fails, convert to palliation at that time. no trach per family. we will re-discuss plan of care if we do not think he is ready to extubate from a pulmonary standpoint. In the interim, they did want him to be DNR with no chest compressions if he were to sustain a cardiac arrest. Plan Neuro: Acute left MCA stroke Aphasia with right hemiparesis Metabolic encephalopathy -On Fentanyl infusion. Monitor neuro status. Ativan PRN for agitation. Daily sedation vacation -MRI brain 09/09/16-acute left sylvian region infarct. CT brain 09/07: No acute disease. -Repeat CT brain 09/15: Sizable area of decreased attenuation in the left MCA distribution most consistent with subacute cortical infarct -Continue aspirin and Plavix. Neuro was following- Cr. Nguyen. -09/13 EEG: within normal. Pulm: Obstructive sleep apnea Acute respiratory failure -Continue with vent support keep sat >90% -Bronchodilators, ICU vent bundle, CPAP trials as khris. Mental status will not permit extubation at this time -on PS 15/5, working on weaning support. -Re intubated on 09/15/16 -Palliative care following - daily SBT. almost ready for extubation from a pulmonary mechanics standpoint, although I am not hopeful that he will continue to stay extubated from a mental status standpoint. CV: HTN Hyperlipidemia NSTEMI Known CAD -Monitor HR and BP keep MAP>65mmHg -Continue with ASA, Plavix. Imdur and Lopressor on hold due to hypotension -Lipitor held for elevated LFT's -s/p cardiac cath 09/07 showed multivessel disease with 2/6 grafts patent, EF 40% . s/p PCI with stents of the saphenous venous graft to the first diagonal artery. -s/p removal Impella 09/08. Cardiology- Dr. Cummins : Acute on chronic kidney disease -Monitor renal function, I/O's, avoid nephrotoxins. -HD initiated 09/14 , renal-Dr. Naidu. . Monitor CK's ( trending down) GI: Hyperkalemia-resolved -On Protonix 40mg -GI is following -Monitor LFT's ( trending down), Hepatitis profile negative on 09/14 -US Liver: Minimally complex cyst right mid kidney. Liver mildly enlarged. -Continue with TF- Nepro advance to goal rate ID: UTI with enterococcus HCAP Leukocytosis C-diff colitis Sputum cx: 09/17 Pseudomonas -Continue abx per ID ( PO Vanco, IV Zerbaxa, Zyvox, IV Diflucan, Tobra nebs). Monitor for signs of infections ( Fever, WBC) -f/u BC x 2 sets 09/21: NGTD -CT abd/pelvis: Gaseous distention, no acute process -KUB abdomen 09/17- non specific bowel gas pattern - discussed care with Dr. Becker, ID. certainly, lines may need to be changed if clinical suspicion for infection is high. however, fever curve downtrending, and patient is clinically stable. will hold off on this for now. Heme: -Monitor CBC Endo: DM -SSI( Medium) with accuchecks for glycemic control, Levemir 5u Q12 GI prophylaxis - on Protonix 40mg Q12 DVT prophylaxis - SCD, Heparin 5000 units sq very 12 Palliative care is following. Lines: Right Vascth placed 09/14, Right IJ CVP placed 09/15. Problem Qualifiers (1) Acute renal failure: Qualified Code: N17.0 - Acute renal failure with tubular necrosis Enoch Robertson MD Sep 28, 2016 16:58
--- NOTE | 2016-09-28 18:12 | HHI.NPPN ---
Subjective History of Present Illness 66-year-old male with history of coronary artery disease status post CABG, osteoarthritis, diabetes, hyperlipidemia who was admitted there with unstable angina and underwent heart catheterization found to have significant blockages requiring stent and impella device, he has acute renal failure. Additional Remarks Patient on Vent Objective Data Data 09/27/16 09/28/16 19:00 07:00 Intake Total 301 ml 828 ml Output Total 2350 ml 420.0 ml Balance -2049 ml 408.0 ml IV Total 167 ml 423 ml Tube Feeding 134 ml 285 ml Other 120 ml Output Urine Total 50 ml 20 ml Stool Total 400 ml Tube Feeding Residual Discard 0 ml Hemodialysis 2300 ml Vital Signs Date Time Temp Pulse Resp B/P Pulse Ox O2 Delivery O2 Flow Rate FiO2 09/28/16 16:14 99 35 09/28/16 16:00 101 09/28/16 16:00 98.2 101 12 101/46 95 09/28/16 16:00 35 09/28/16 14:00 98 09/28/16 12:19 97 55 09/28/16 12:00 101 09/28/16 12:00 99.9 100 15 110/59 100 09/28/16 12:00 35 09/28/16 10:00 100 09/28/16 08:15 35 09/28/16 08:15 100 35 09/28/16 08:00 100 09/28/16 08:00 98.9 100 20 95/51 100 09/28/16 08:00 35 09/28/16 06:00 91 09/28/16 04:53 98 35 09/28/16 04:00 35 09/28/16 04:00 84 09/28/16 04:00 100.3 84 18 141/63 100 09/28/16 02:00 91 09/28/16 01:39 99 35 09/28/16 01:30 127/58 09/28/16 00:00 35 09/28/16 00:00 100.8 107 18 78/56 97 09/28/16 00:00 107 09/27/16 22:03 100 35 09/27/16 22:00 104 09/27/16 20:00 109 09/27/16 20:00 99.5 109 21 90/53 99 09/27/16 20:00 35 09/27/16 19:44 100 35 -: 3/14/17 0455 09/28/16 0455 Physical Exam General Appearance: Well Developed, Well Nourished Pulmonary Resp Exam: Crackles, Rhonchi, Decreased Bases, Diminished Breath Sounds Cardiology CV Exam: Regular, Normal Sinus Rhythm Gastrointestinal/Abdomen GI Exam: Soft, Non-Tender, Bowel Sounds Present, Distended Extremeties Extremities Exam: Moderate Edema, Pitting Edema, Dependent Edema Neurologic Neuro Exam: Sedated Assessment/Plan Problem List: (1) Acute renal failure Plan: Remains intubated Oliguric renal failure on hemodialysis M,W,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 still not clear HD tomorrow has Pneumonia Tobramycin inhalation Pseudomonas Febrile earlier today, continue to monitor (2) Hyperkalemia Plan: Resolved (3) Chronic kidney disease Plan: He has stage III chronic kidney disease due to diabetic (4) CHF (congestive heart failure), NYHA class III Plan: Continue to monitor for improvement (5) Coronary artery disease involving [place] heart Plan: had bypass and stents (6) Hypertension, essential, benign Plan: Monitor blood pressure (7) Diabetes mellitus, type II Plan: Monitor blood glucose (8) UTI (lower urinary tract infection) (9) CVA (cerebral vascular accident) Plan: remain unresponsive moves left side more (10) Need for prophylactic vaccination and inoculation against influenza (11) Clostridium difficile infection Plan: on PO Vanco Problem Qualifiers (1) Acute renal failure: Qualified Code: N17.0 - Acute renal failure with tubular necrosis (2) Chronic kidney disease: Qualified Code: N18.4 - Chronic kidney disease, stage 4 (severe) (3) Diabetes mellitus, type II: Qualified Code: E11.22 - Type 2 diabetes mellitus with diabetic chronic kidney disease, unspecified CKD stage, unspecified termite treater helper insulin use status (4) CVA (cerebral vascular accident): Marisol Naidu MD Sep 28, 2016 18:12
[2016-09-29] VITALS (19 sets, daily range): BP systolic 87–129; BP diastolic 53–75; PULSE 96–110; RESP 18–30; TEMP 98.8–100.2; O2SAT 95–100
[2016-09-29] MEDS: INSULIN NovoLIN REGULAR SUPPLEMENTAL SCALE SQ SCH ×6 (00:39→21:00)
[2016-09-29 04:45] LABS: HEMATOCRIT 26.9 % (39.0-51.0); MEAN CORPUSCULAR HEMOGLOBIN 29.6 PG (27.0-34.0); MEAN CORPUSCULAR HGB CONC 32.9 % (32.0-36.0); PLATELET COUNT 242 TH/MM3 (150-450); RED BLOOD COUNT 2.99 MIL/MM3 (4.50-5.90); RED CELL DISTRIBUTION WIDTH 15.2 % (11.6-17.2); REVIEW FLAG FINAL; WHITE BLOOD COUNT 14.2 TH/MM3 (4.0-11.0)
[2016-09-29] MEDS: CHLORHEXIDINE GLUCONATE 2 % 1 PACK (2 CLOTHS) TOP SCH (05:00)
[2016-09-29 05:04] LABS: POTASSIUM 3.8 MEQ/L (3.5-5.1)
[2016-09-29] MEDS: METOCLOPRAMIDE HCL 10 MG/2 ML VIAL IV PUSH SCH ×3 (05:11→22:02)
[2016-09-29] MEDS: RESP: ALBUTEROL 2.5 MG/IPRATROPIUM 0.5 MG NEB (PRN) INH (07:40)
[2016-09-29] MEDS: RESP: TOBRAMYCIN SULFATE 300 MG/5 ML NEB NEB SCH ×2 (07:40→19:28)
[2016-09-29] MEDS: DOCUSATE SODIUM 100 MG/10 ML UDC PO SCH ×2 (07:53→22:01)
[2016-09-29] MEDS: SENNOSIDES SYRUP 8.8 MG/5 ML CUP PO SCH (07:54)
--- NOTE | 2016-09-29 07:54 | HHI.CCPN ---
Subjective Remarks/Hospital Course 66-year-old gentleman with a history of coronary artery disease status post CABG underwent emergent cardiac catheterization by Dr. Cummins. Postprocedure his course is complicated by aphasia and right-sided weakness. 09/08 Patient was on BIPAP 14/7 with FIO2 25%. On Precedex and heparin drips. CT brain showed last night showed no acute process. Impela was removed this morning by Dr. Cummins. T:99.9 Renal function improving with Cr:2.5 from 3.0 hyperkalemic with K 6.1 09/09: Overnight remained on BiPAP predominantly for sleep apnea. Intermittently follows commands. Will check MRI of the brain today. Creatinine slightly worsened to 2.8. Consulted nephrology, hyperkalemia resolved 09/10: Remains on BiPAP, some interval worsening of respiratory status. Patient is more tachypneic chest x-ray shows left lower lobe infiltrate .Currently sedated with 0.5 g per KG per hour of Precedex. I will discontinue Precedex. MRI brain shows acute infarct left sylvian region. Creatinine slightly worse at 3. Low-grade fever Tmax 100.2, send blood and sputum culture and start Zosyn 09/11: Patient was intubated yesterday for progressively worsening respiratory failure, hypoxemia and altered mentation. On ventilator support patient's oxygenation has improved. He moves all extremities do not following commands. Chest x-ray shows no definite infiltrates 09/12: Extubated yesterday tolerating well oxygenation varghese and protecting airway. No fevers. Urine output 3.8 L in 24 hours with creatinine worsening from 3.9 to 4.5 today. Remains aphasic not following commands 09/13: Somnolent, received Ativan for agitation overnight. Urine output 4 L in 24 hours. Labs are pending at this time. Opens eyes to verbal stimulation, remains aphasic and did not follow commands 09/14 Patient appears somnolent. On no sedation. Renal function worse today with Cr: 7.31 from 5.40 and UO: 715ml in 24hrs. T:100.9 this morning. Remains aphasic. 09/15 Patient was placed on Amio drip overnight for Afib with RVR. HD initiated yesterday with removal 2L. He is currently receiving another HD treatment. Tmax 100.9. Patient remains encephalopathic and does not follow commands. TF was held due to high residuals. 09/16 Patient was intubated yesterday for airway protection. On Fentanyl drip for sedation on Neosyn. Tmax 104. C-diff PCR positive. CT abd/pelvis showed no acute process, gaseous distention. 09/17 Patient remains intubated and sedated with Fentanyl. On Neosyn 75 mics. T: 101.8 at 4 am. 09/18 Patient remains sedated and intubated. T:101.1 last night. On Neosyn 60 mics. 09/19 No acute events overnight. Off Neosyn and is on Fentanyl infusion for sedation. T:100.5. Tolerated CPAP x 4 hrs yesterday. Patient was able to open up his eyes off sedation. 09/20 Patient remains sedated with Fentanyl and intubated. T:99.8 last night. WBC trending down. Off Neosyn. For J-tube placement by IR today. 09/21 Patient remains sedated and intubated. T:100.0 last night. s/p HD yesterday with removal 3.5L. 09/22-continues to have low-grade fever. On sedation hold open size moves all extremities do not follow commands. White count stable at 17.8 09/23/16: T 100.3, white count slightly improved 16.9. Neuro exam remains unchanged family has not decided about trach yet wants to wait a few more days 09/24 No acute events overnight. T;100.4 last night. On Fentanyl infusion for sedation. TF held for high residuals. For HD today. 09/25: no significant clinical change. still with low grade temps. mental status still poor. wbc persistently elevated. 09/26: continues with fevers. wbc uptrended overnight. no changes in severe encephalopathy. 09/27: fevers defervesced overnight. continues to be encephalopathic. I had a long conversation with his daughter today and they are considering possible extubation and transition to palliation vs. tracheostomy. 09/28: no clinical change. failed SBT for tachypnea and RSBI > 105. per family discussions, will plan on medical extubation when he passes SBT in near future, with the understanding that when he is extubated, his code status will change to DNR/DNI and if he fails extubation, we will make him comfortable and pursue palliation. 09/29: No acute events overnight MAXIMUM TEMPERATURE is 100.2. WBC count has improved to 14.2 from 17.1 unable to follow commands. Attempt C Pap again today. failed SBT yesterday Objective Vital Signs Date Time Temp Pulse Resp B/P Pulse Ox O2 Delivery O2 Flow Rate FiO2 09/29/16 07:43 99 35 09/29/16 06:00 101 09/29/16 04:00 100.2 18 113/66 Intake and Output 09/28/16 09/28/16 09/29/16 08:00 16:00 00:00 Intake Total 366 ml 339 ml 424 ml Output Total 210.0 ml 50.0 ml 80.0 ml Balance 156.0 ml 289.0 ml 344.0 ml Result Diagram: 09/29/16 0425 09/29/16 0425 Imaging Last Impressions Chest X-Ray 09/24/16 0600 Signed Impressions: Service Date/Time: Saturday, September 24, 2016 05:05 - CONCLUSION: Interval development of non-consolidative infiltrates in both lower lungs. Suresh Diaz MD Liver Ultrasound 09/17/16 1030 Signed Impressions: Service Date/Time: Saturday, September 17, 2016 11:01 - CONCLUSION: 1. Minimally complex cyst right mid kidney. 2. Liver mildly enlarged. Cesar Mcfadden MD Abdomen X-Ray 09/17/16 0600 Signed Impressions: Service Date/Time: Saturday, September 17, 2016 05:05 - CONCLUSION: Nonspecific abdomen appearance. Michael Ross MD Head CT 09/15/16 0000 Signed Impressions: Service Date/Time: Thursday, September 15, 2016 10:15 - CONCLUSION: 1. Sizable area of decreased attenuation in the left MCA distribution most consistent with subacute cortical infarct. This there is stable compared to previous MR dated 09/09/16. Sanket Gonzalez MD Central Venous Line 09/15/16 0000 Signed Impressions: Service Date/Time: Thursday, September 15, 2016 00:00 - CONCLUSION: Uncomplicated line placement as above. Wesley Chaudhari MD Abdomen/Pelvis CT 09/15/16 0000 Signed Impressions: Service Date/Time: Thursday, September 15, 2016 17:00 - CONCLUSION: 1. Gaseous distension of the stomach. 2. I do not see evidence for significant colitis. Lowell Gonzalez MD FACR Catheter Placement X-Ray 09/14/16 0000 Signed Impressions: Service Date/Time: Wednesday, September 14, 2016 00:00 - CONCLUSION: Uncomplicated line placement as above. Wesley Chaudhari MD Carotid Artery Ultrasound 09/13/16 0000 Signed Impressions: Service Date/Time: Tuesday, September 13, 2016 16:46 - CONCLUSION: Significant plaque remains evident in the carotid bifurcations. Poor visualization and difficulty velocity sampling of the proximal internal carotid arteries was again encountered. Significant carotid stenosis cannot be excluded. Nonvisualization of the vertebral arteries. Mack Brizuela MD Brain MRI 09/09/16 0000 Signed Impressions: Service Date/Time: August 16:36 - CONCLUSION: 1. Findings demonstrate an acute infarction in the left sylvian region, nonhemorrhagic. 2. Small air-fluid level right maxillary sinus and mild bilateral ethmoid sinus disease. Suresh Diaz MD Renal Ultrasound 09/08/16 0000 Signed Impressions: Service Date/Time: Thursday, September 08, 2016 16:04 - CONCLUSION: Large 6.3 cm cyst lower pole laterally left kidney. No evidence of hydronephrosis or obstructive uropathy.. Christian Cooper MD Objective Remarks GENERAL: critically ill elderly male, intubated, sedated with fentanyl 30 g per hour HEENT: Atraumatic normocephalic. Pupils are round and reactive mucous membranes moist. NECK: trachea midline. No JVD CARDIOVASCULAR: Regular rate and rhythm., sinus by tele. RESPIRATORY: Breath sounds equal bilaterally. No accessory muscle use. GASTROINTESTINAL: Abdomen soft, non-tender, nondistended. MUSCULOSKELETAL: No cyanosis, or edema. NEURO: Able to open eyes and moves extremities spontaneously however he does not follow commands A/P Problem List: (1) Acute ischemic left MCA stroke ICD Code: I63.512 Status: Acute (2) Acute renal failure ICD Code: N17.9 Status: Acute (3) CHF (congestive heart failure), NYHA class III ICD Code: I50.9 Status: Acute (4) Coronary artery disease involving [place] heart ICD Code: I25.10 Status: Chronic (5) HTN (hypertension) ICD Code: I10 Status: Acute (6) CKD (chronic kidney disease) ICD Code: N18.9 Status: Acute Assessment and Plan ASSESSMENT: 66yM with CAD and now s/p Left MCA CVA with residual deficits. multiple organ systems still critically ill, including acute resp failure, encephalopathy, kidney injury, multiple nosocomial infections including pseudomonas pneumonia and C.Difficile. poor prognosis. I do not think he will protect his airway. After long discussions with his family, plan to pursue trial of extubation when medically necessary and if he fails, convert to palliation at that time. no trach per family. we will re-discuss plan of care if we do not think he is ready to extubate from a pulmonary standpoint. In the interim, they did want him to be DNR with no chest compressions if he were to sustain a cardiac arrest. Plan Neuro: Acute left MCA stroke Aphasia with right hemiparesis Metabolic encephalopathy -On Fentanyl infusion-DC to optimize SBT. Monitor neuro status. Ativan PRN for agitation. Daily sedation vacation -MRI brain 09/09/16-acute left sylvian region infarct. CT brain 09/07: No acute disease. -Repeat CT brain 09/15: Sizable area of decreased attenuation in the left MCA distribution most consistent with subacute cortical infarct -Continue aspirin and Plavix. Neuro was following- Cr. Nguyen. -09/13 EEG: within normal. Pulm: Acute respiratory failure Obstructive sleep apnea -Continue with vent support keep sat >90% -Bronchodilators, ICU vent bundle, CPAP trials daily. Mental status will not permit extubation at this time -on PS 15/5, working on weaning support. -Re intubated on 09/15/16 -Palliative care following -Failed SBT yesterday, again airway protection will be a problem if extubated CV: NSTEMI Known CAD HTN Hyperlipidemia -Monitor HR and BP keep MAP>65mmHg -Continue with ASA, Plavix. Imdur and Lopressor on hold due to hypotension -Lipitor held for elevated LFT's -s/p cardiac cath 09/07 showed multivessel disease with 2/6 grafts patent, EF 40% . s/p PCI with stents of the saphenous venous graft to the first diagonal artery. -s/p removal Impella 09/08. Cardiology- Dr. Cummins : Acute on chronic kidney disease -Monitor renal function, I/O's, avoid nephrotoxins. -HD initiated 09/14 , renal-Dr. Naidu. . Monitor CK's ( trending down). Most likely he'll be dialysis dependent GI: Hyperkalemia-resolved -On Protonix 40mg -GI is following -Monitor LFT's ( trending down), Hepatitis profile negative on 09/14 -US Liver: Minimally complex cyst right mid kidney. Liver mildly enlarged. -Continue with TF- Nepro advance to goal rate ID: UTI with enterococcus HCAP Leukocytosis C-diff colitis Sputum cx: 09/17 Pseudomonas -Continue abx per ID ( PO Vanco, IV Zerbaxa, Zyvox, IV Diflucan, Tobra nebs). Monitor for signs of infections ( Fever, WBC) -f/u BC x 2 sets 09/21: NGTD -CT abd/pelvis: Gaseous distention, no acute process -KUB abdomen 09/17- non specific bowel gas pattern -Dr. Robertson discussed care with Dr. Becker, ID. certainly, lines may need to be changed if clinical suspicion for infection is high. however, WBC downtrending, and patient is clinically stable. will hold off line change for now. Heme: -Monitor CBC Endo: DM -SSI( Medium) with accuchecks for glycemic control, Levemir 5u Q12 GI prophylaxis - on Protonix 40mg Q12 DVT prophylaxis - SCD, Heparin 5000 units sq very 12 Palliative care is following. Lines: Right Vascth placed 09/14, Right IJ CVP placed 09/15. Problem Qualifiers (1) Acute renal failure: Qualified Code: N17.0 - Acute renal failure with tubular necrosis Krishna Rodriguez MD Sep 29, 2016 07:54
[2016-09-29] MEDS: CHLORHEXIDINE 0.12% (ORAL KIT) 15 ML CUP MT SCH ×2 (08:00→22:00)
[2016-09-29] MEDS: HEPARIN SODIUM - SQ 10,000 UNITS/ML VIAL SQ SCH ×2 (08:12→21:58)
[2016-09-29] MEDS: CLOPIDOGREL 75 MG TAB PO SCH (08:12)
[2016-09-29] MEDS: ASPIRIN 81 MG CHEW TAB CHEW SCH (08:12)
[2016-09-29] MEDS: VANCOMYCIN 500 MG VIAL (FOR ORAL USE ONLY) PO SCH ×4 (08:12→22:01)
[2016-09-29] MEDS: SODIUM CHLORIDE 0.9% FLUSH 5 ML FLUSH IVF SCH (08:13)
[2016-09-29] MEDS: PANTOPRAZOLE SODIUM 40 MG VIAL IV PUSH SCH ×2 (08:13→22:01)
[2016-09-29] MEDS: ARTIFICIAL TEARS OPTH OINT 3.5 APPLIC/3.5 GM TUBO EACH EYE SCH ×2 (08:13→21:59)
[2016-09-29] MEDS: INSULIN DETEMIR 100 UNITS/ML VIAL SQ SCH ×2 (08:13→21:58)
[2016-09-29] MEDS: SODIUM CHLORIDE 0.9% FLUSH 5 ML FLUSH IV FLUSH SCH ×2 (08:13→21:59)
[2016-09-29 10:09] LABS: BLOOD GAS CARBOXYHEMOGLOBIN 1.3 % (0-4); BLOOD GAS HCO3 19 mmol/L (22-26); BLOOD GAS METHEMOGLOBIN 1.1 % (0-2); BLOOD GAS O2 HGB SATURATION 96 % (90-100); BLOOD GAS OXYGEN CONTENT 13.5 Vol % (12.0-20.0); BLOOD GAS PCO2 31 mmHg (38-42); BLOOD GAS PO2 138 mmHg (61-120); BLOOD GAS TOTAL HGB 9.7 G/DL (12.0-16.0); TEMP CORR TO 98.6
[2016-09-29 10:10] LABS: CRITICAL VALUE NO; DRAW SITE LT BRACHIAL; FIO2 35 %; NUMBER OF ARTERIAL PUNCTURES 2; OXYGEN DEVICE VENTILATOR
--- NOTE | 2016-09-29 11:29 | HHI.IDPN ---
Subjective Subjective Remarks Mr. Ferguson is a 66 y/o male with a medical history of CAD status post 6 vessel CABG in 2011, CHF, CAD, hypertension, diabetes mellitus type 2, obesity, and sleep apnea. On 09/07/16, patient underwent cardiac catheterization , he was found to have significant blockage requiring angioplasty and stenting. Post cardiac catheter, patient developed aphasia and right sided hemiparesis. CT of the brain show no acute process. Neurology -Dr. Nguyen consulted. Brain MRI obtained on 09/09/16 showing acute nonhemorrhagic infarction in the left sylvian region. Patient developed respiratory distress and was placed on BiPAP , subsequently intubated and placed on mechanical ventilation. developed ARF, on HD Patient was being treated for aspiration Pneumonia. Intubated September 15 Started on HD Sep 14 Infectious disease following for septic shock, aspiration Pneumonia, confirmed C. difficile colitis. Notes reviewed D/W RN Low grade fevers. Appear to be defervescing Did not tolerate SBT. HD M,W,F. Was on pressors last night transiently. Has liquid stool Small thin white ET secretions BC negative Has RIJ TLC and vascath Sputum 09/17 with Pseudomonas, resistant Antibiotics Zerbaxa IV for MDR PSAE tracheobronchitis/Pneumonia Vanco oral for Cdiff Tobra nebs for MDR PSAE. Lines RIJ TLC and vascath Past Medical History reviewed Allergies: Coded Allergies: No Known Allergies (Verified , 09/07/16) Objective . Vital Signs Date Time Temp Pulse Resp B/P Pulse Ox O2 Delivery O2 Flow Rate FiO2 09/29/16 11:18 100 35 09/29/16 07:43 99 35 09/29/16 07:43 35 09/29/16 06:00 101 09/29/16 04:19 98 35 09/29/16 04:00 100.2 96 18 113/66 100 09/29/16 04:00 35 09/29/16 04:00 96 09/29/16 02:00 100 09/29/16 01:02 99 35 09/29/16 00:00 97 09/29/16 00:00 98.8 97 19 87/53 100 09/29/16 00:00 35 09/28/16 22:10 100 35 09/28/16 22:00 96 09/28/16 20:00 35 09/28/16 20:00 98.8 100 18 93/59 98 09/28/16 20:00 100 09/28/16 19:30 35 09/28/16 19:29 99 35 09/28/16 18:00 99 09/28/16 16:14 99 35 09/28/16 16:00 101 09/28/16 16:00 98.2 101 12 101/46 95 09/28/16 16:00 35 09/28/16 14:00 98 09/28/16 12:19 97 55 09/28/16 12:00 101 09/28/16 12:00 99.9 100 15 110/59 100 09/28/16 12:00 35 09/28/16 09/28/16 09/29/16 15:00 23:00 07:00 Intake Total 339 ml 424 ml 447 ml Output Total 50.0 ml 80 ml 200 ml Balance 289.0 ml 344 ml 247 ml IV Total 112 ml 71 ml 74 ml Tube Feeding 227 ml 293 ml 313 ml Other 60 ml 60 ml Output Urine Total 20 ml 15 ml Stool Total 50 ml 60 ml 185 ml Tube Feeding Residual Discard 0 ml 0 ml 0 ml . Laboratory Tests Test 09/28/16 09/29/16 04:55 04:25 White Blood Count 17.1 TH/MM3 14.2 TH/MM3 Red Blood Count 3.12 MIL/MM3 2.99 MIL/MM3 Hemoglobin 9.2 GM/DL 8.9 GM/DL Hematocrit 27.9 % 26.9 % Mean Corpuscular Volume 89.4 FL 90.0 FL Mean Corpuscular Hemoglobin 29.4 PG 29.6 PG Mean Corpuscular Hemoglobin 32.8 % 32.9 % Concent Red Cell Distribution Width 15.0 % 15.2 % Platelet Count 278 TH/MM3 242 TH/MM3 Mean Platelet Volume 8.3 FL 8.5 FL Laboratory Tests Test 09/28/16 09/29/16 04:55 04:25 Sodium Level 137 MEQ/L 137 MEQ/L Potassium Level 3.7 MEQ/L 3.8 MEQ/L Chloride Level 94 MEQ/L 94 MEQ/L Carbon Dioxide Level 24.2 MEQ/L 22.0 MEQ/L Anion Gap 19 MEQ/L 21 MEQ/L Blood Urea Nitrogen 78 MG/DL 102 MG/DL Creatinine 10.11 MG/DL 11.84 MG/DL Estimat Glomerular Filtration 5 ML/MIN 4 ML/MIN Rate Random Glucose 195 MG/DL 206 MG/DL Lactic Acid Level 1.0 mmol/L Calcium Level 9.0 MG/DL 8.7 MG/DL Imaging Liver Ultrasound 09/17/16 1030 Signed Impressions: Service Date/Time: Saturday, September 17, 2016 11:01 - CONCLUSION: 1. Minimally complex cyst right mid kidney. 2. Liver mildly enlarged. Cesar Mcfadden MD Abdomen X-Ray 09/17/16 0600 Signed Impressions: Service Date/Time: Saturday, September 17, 2016 05:05 - CONCLUSION: Nonspecific abdomen appearance. Michael Ross MD Chest X-Ray 09/15/16 1621 Signed Impressions: Service Date/Time: Thursday, September 15, 2016 16:33 - CONCLUSION: 1. Uncomplicated line placement. No evidence of pneumothorax. Wesley Chaudhari MD Head CT 09/15/16 0000 Signed Impressions: Service Date/Time: Thursday, September 15, 2016 10:15 - CONCLUSION: 1. Sizable area of decreased attenuation in the left MCA distribution most consistent with subacute cortical infarct. This there is stable compared to previous MR dated 09/09/16. Sanket Gonzalez MD Central Venous Line 09/15/16 0000 Signed Impressions: Service Date/Time: Thursday, September 15, 2016 00:00 - CONCLUSION: Uncomplicated line placement as above. Wesley Chaudhari MD Abdomen/Pelvis CT 09/15/16 0000 Signed Impressions: Service Date/Time: Thursday, September 15, 2016 17:00 - CONCLUSION: 1. Gaseous distension of the stomach. 2. I do not see evidence for significant colitis. Lowell Gonzalez MD FACR Catheter Placement X-Ray 09/14/16 0000 Signed Impressions: Service Date/Time: Wednesday, September 14, 2016 00:00 - CONCLUSION: Uncomplicated line placement as above. Wesley Chaudhari MD Carotid Artery Ultrasound 09/13/16 0000 Signed Impressions: Service Date/Time: Tuesday, September 13, 2016 16:46 - CONCLUSION: Significant plaque remains evident in the carotid bifurcations. Poor visualization and difficulty velocity sampling of the proximal internal carotid arteries was again encountered. Significant carotid stenosis cannot be excluded. Nonvisualization of the vertebral arteries. Mack Brizuela MD Brain MRI 09/09/16 0000 Signed Impressions: Service Date/Time: August 16:36 - CONCLUSION: 1. Findings demonstrate an acute infarction in the left sylvian region, nonhemorrhagic. 2. Small air-fluid level right maxillary sinus and mild bilateral ethmoid sinus disease. Suresh Diaz MD Renal Ultrasound 09/08/16 0000 Signed Impressions: Service Date/Time: Thursday, September 08, 2016 16:04 - CONCLUSION: Large 6.3 cm cyst lower pole laterally left kidney. No evidence of hydronephrosis or obstructive uropathy.. Christian Cooper MD Physical Exam GENERAL: Obese male patient, sedated, on the vent. Comfortable on CPAP SKIN: No rashes, ecchymoses or lesions. Cool and dry. HEAD: Atraumatic. Normocephalic. No temporal or scalp tenderness. EYES: Pupils equal round and reactive. No scleral icterus. No injection or drainage. ENT: Intubated. Oral mucosae moist NECK: Trachea midline. Supple, nontender, no meningeal signs. Line in neck looks ok CARDIOVASCULAR: Heart sounds audible. RESPIRATORY: Clear to auscultation. Breath sounds equal bilaterally. GASTROINTESTINAL: Abdomen soft, non-tender, nondistended. MUSCULOSKELETAL: Extremities without clubbing, cyanosis, or edema. NEUROLOGICAL: Sedated Psych can not be assessed IV line sites with no evidence of infection. : Guillen in place Assessment & Plan Remarks IMPRESSION Aspiration Pneumonia, tracheobronchitis: MDR PSAE. Clostridium diff colitis Acute resp failure on vent. Acute metabolic encephalopathy: stroke, sepsis, metabolic. Acute renal failure: meds, sepsis, ATN on HD now. CAD, SC Acute stroke Recs Continue Vanco oral for Cdiff Continue Abelardo nebs (stop date in chart for MDR PSAE) Observe clinically on above regimen. Intermittent fevers: ? drug fever vs underlying Cdiff. D/W RN d/w Era Goodman MD Sep 29, 2016 11:29
[2016-09-29] MEDS: SODIUM CHLOR 0.9% 1000 ML INJ 1,000 ML IV PRN (12:36)
[2016-09-29] MEDS: GENTAMICIN SULFATE (DIALYSIS USE ONLY) 20 MG/2 ML VIAL IV PRN (12:37)
[2016-09-29] MEDS: HEPARIN SODIUM - IV 10,000 UNITS/10 ML VIAL PRN (12:37)
[2016-09-29] MEDS: ALBUMIN HUMAN 25% 25 GM/100 ML BAGP IV PRN ×2 (12:46→12:47)
--- NOTE | 2016-09-29 13:37 | HHI.NPPN ---
Subjective History of Present Illness 66-year-old male with history of coronary artery disease status post CABG, osteoarthritis, diabetes, hyperlipidemia who was admitted there with unstable angina and underwent heart catheterization found to have significant blockages requiring stent and impella device, he has acute renal failure. Additional Remarks Patient on Vent Objective Data Data 09/28/16 09/29/16 19:00 07:00 Intake Total 339 ml 871 ml Output Total 50.0 ml 280.0 ml Balance 289.0 ml 591.0 ml IV Total 112 ml 145 ml Tube Feeding 227 ml 606 ml Other 120 ml Output Urine Total 35 ml Stool Total 50 ml 245 ml Tube Feeding Residual Discard 0 ml 0 ml Vital Signs Date Time Temp Pulse Resp B/P Pulse Ox O2 Delivery O2 Flow Rate FiO2 09/29/16 11:18 100 35 09/29/16 07:43 99 35 09/29/16 07:43 35 09/29/16 06:00 101 09/29/16 04:19 98 35 09/29/16 04:00 100.2 96 18 113/66 100 09/29/16 04:00 35 09/29/16 04:00 96 09/29/16 02:00 100 09/29/16 01:02 99 35 09/29/16 00:00 97 09/29/16 00:00 98.8 97 19 87/53 100 09/29/16 00:00 35 09/28/16 22:10 100 35 09/28/16 22:00 96 09/28/16 20:00 35 09/28/16 20:00 98.8 100 18 93/59 98 09/28/16 20:00 100 09/28/16 19:30 35 09/28/16 19:29 99 35 09/28/16 18:00 99 09/28/16 16:14 99 35 09/28/16 16:00 101 09/28/16 16:00 98.2 101 12 101/46 95 09/28/16 16:00 35 09/28/16 14:00 98 -: 09/29/16 0425 09/29/16 0425 Physical Exam General Appearance: Well Developed, Well Nourished Pulmonary Resp Exam: Crackles, Rhonchi, Decreased Bases, Diminished Breath Sounds Cardiology CV Exam: Regular, Normal Sinus Rhythm Gastrointestinal/Abdomen GI Exam: Soft, Non-Tender, Bowel Sounds Present, Distended Extremeties Extremities Exam: Moderate Edema, Pitting Edema, Dependent Edema Neurologic Neuro Exam: Sedated Assessment/Plan Problem List: (1) Acute renal failure Plan: Remains intubated Oliguric renal failure on hemodialysis M,W,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 HD proceedings noted 3K, 3 L off has Pneumonia Tobramycin inhalation Pseudomonas Febrile earlier today, continue to monitor (2) Hyperkalemia Plan: Resolved (3) Chronic kidney disease Plan: He has stage III chronic kidney disease due to diabetic (4) CHF (congestive heart failure), NYHA class III Plan: Continue to monitor for improvement (5) Coronary artery disease involving [place] heart Plan: had bypass and stents (6) Hypertension, essential, benign Plan: Monitor blood pressure (7) Diabetes mellitus, type II Plan: Monitor blood glucose (8) UTI (lower urinary tract infection) (9) CVA (cerebral vascular accident) Plan: remain unresponsive moves left side more (10) Need for prophylactic vaccination and inoculation against influenza (11) Clostridium difficile infection Plan: on PO Vanco Problem Qualifiers (1) Acute renal failure: Qualified Code: N17.0 - Acute renal failure with tubular necrosis (2) Chronic kidney disease: Qualified Code: N18.4 - Chronic kidney disease, stage 4 (severe) (3) Diabetes mellitus, type II: Qualified Code: E11.22 - Type 2 diabetes mellitus with diabetic chronic kidney disease, unspecified CKD stage, unspecified intermodal dispatcher insulin use status (4) CVA (cerebral vascular accident): Marisol Naidu MD Sep 29, 2016 13:37
--- NOTE | 2016-09-29 15:59 | HHI.HCPN ---
Reason for visit a. To assist with evaluation and management of symptoms including: shortness of breath and debility. b. To assist medical decision maker(s) with: better understanding of current medical conditions; weighing benefits/burdens of medical treatment options; making medical treatment decisions. . (Simran Sorto) Subjective/Interval History Patient seen in ICU. He remains in critical condition -intubated, sedated on mechanical ventilation. HD today, 2.5L out. Hypotensive overnight requiring Levophed drip. Patient remains unresponsive to tactile or verbal stimuli. Not following any commands. Severe encephalopathy. Nonpurposeful movement noted to all 4 extremities. Low grade tempterature overnight, max 100.2. Tachycardia with heart rate in the 110s. Has been tolerating CPAP trials but failed SBT yesterday. Laboratory today to include WBC 14.2, Hgb 8.9, platelet count 242. Sodium 137, potassium 3.8, BUN/creatinine 102/11.84. . Family/friend interactions Max Esposito at bedside. Long conversation last evening with max Esposito, his , Dr. Robertson and palliative care. Medical update was provided. Likely trajectory of illness and prognosis reviewed. all 3 children Vaibhav, Sedrick and Yani in agreement of attempting medical extubation when he passes SBT, at that time his code status will be DNR/DNI -Do NOT reintubate. Family with the understanding that if patient fails medical extubation, he will be made comfortable and allowed a natural . Max Esposito at bedside today. Medical update provided. Spoke with daughter Yani over the phone and also provided medical update. Palliative care assisting daughter Yani with completion of [place] documentation as she is planning to return to [place] in the next day or so. . (Simran Sorto) Advance Directives Living Will: Never completed Health Care Surrogate: Never completed Durable Power of Splitting Machine Feeder: Never completed (Simran Sorto) Advance Directive Specifics Health Care Surrogate(s): Max Dubose not sure if patient has completed advance directives. As per [place] statute, healthcare decision-making falls to patient's 3 children. . Documented care wishes: No advance directives or living will completed. . Significant change in goals: NO CODE. attempt at medical extubation. . (Simran Sorto) Objective Vital Signs Date Time Temp Pulse Resp B/P Pulse Ox O2 Delivery O2 Flow Rate FiO2 09/29/16 12:00 98.8 97 30 129/75 95 09/29/16 12:00 35 09/29/16 11:18 100 35 09/29/16 08:00 99.0 98 27 94/68 95 09/29/16 08:00 35 09/29/16 07:43 99 35 09/29/16 07:43 35 09/29/16 06:00 101 09/29/16 04:19 98 35 09/29/16 04:00 100.2 96 18 113/66 100 09/29/16 04:00 35 09/29/16 04:00 96 09/29/16 02:00 100 09/29/16 01:02 99 35 09/29/16 00:00 97 09/29/16 00:00 98.8 97 19 87/53 100 09/29/16 00:00 35 09/28/16 22:10 100 35 09/28/16 22:00 96 09/28/16 20:00 35 09/28/16 20:00 98.8 100 18 93/59 98 09/28/16 20:00 100 09/28/16 19:30 35 09/28/16 19:29 99 35 09/28/16 18:00 99 09/28/16 16:14 99 35 09/28/16 16:00 101 09/28/16 16:00 98.2 101 12 101/46 95 09/28/16 16:00 35 Intake & Output 09/29/16 09/29/16 07:00 19:00 Intake Total 871 ml 525 ml Output Total 280.0 ml 2600 ml Balance 591.0 ml -2075 ml IV Total 145 ml 0 ml Tube Feeding 606 ml 425 ml Other 120 ml 100 ml Output Urine Total 35 ml 0 ml Stool Total 245 ml 100 ml Tube Feeding Residual Discard 0 ml Hemodialysis 2500 ml Physical Exam CONSTITUTIONAL/GENERAL: This is an adequately nourished patient in no acute distress. Sedated, intubated on mechanical ventilation. TUBES/LINES/DRAINS: PIV's, SCDs, Guillen catheter, right IJ dialysis catheter. ETT , OG tube. Rectal tube with moderate amount of watery stool. SKIN: No jaundice, rashes, or lesions. No wounds seen anteriorly. Not diaphoretic. Dry skin. HEAD: Atraumatic. Normocephalic. ENT: Unable to evaluate hearing secondary to clinical condition. Nose without bleeding or purulent drainage. ETT in place. Moderate amount of oral secretions noted. CARDIOVASCULAR: Tachycardic with heart rate in the 110s. Irregular rate and rhythm. RESPIRATORY/CHEST: Symmetric, unlabored. coarse breath sounds anteriorly. Intubated on mechanical ventilation. GASTROINTESTINAL: Abdomen soft, large, round. Bowel sounds hypoactive. Tube feeding will help. GENITOURINARY: Without palpable bladder distension. Guillen catheter in place. MUSCULOSKELETAL: Extremities without clubbing, cyanosis. NEUROLOGICAL: Unresponsive to tactile or verbal stimuli. Not following any commands. Involuntary movement to 4 extremities noted. PSYCHIATRIC: Unable to assess secondary to clinical condition. Appears calm. . (Simran Sorto) Diagnostic Tests Laboratory Laboratory Tests Test 09/27/16 09/28/16 09/29/16 09/29/16 04:45 04:55 04:25 09:58 White Blood Count 19.8 TH/MM3 17.1 TH/MM3 14.2 TH/MM3 (4.0-11.0) (4.0-11.0) (4.0-11.0) Red Blood Count 3.20 MIL/MM3 3.12 MIL/MM3 2.99 MIL/MM3 (4.50-5.90) (4.50-5.90) (4.50-5.90) Hemoglobin 9.4 GM/DL 9.2 GM/DL 8.9 GM/DL (13.0-17.0) (13.0-17.0) (13.0-17.0) Hematocrit 28.9 % 27.9 % 26.9 % (39.0-51.0) (39.0-51.0) (39.0-51.0) Mean Corpuscular Volume 90.3 FL 89.4 FL 90.0 FL (80.0-100.0) (80.0-100.0) (80.0-100.0) Mean Corpuscular Hemoglobin 29.3 PG 29.4 PG 29.6 PG (27.0-34.0) (27.0-34.0) (27.0-34.0) Mean Corpuscular Hemoglobin 32.4 % 32.8 % 32.9 % Concent (32.0-36.0) (32.0-36.0) (32.0-36.0) Red Cell Distribution Width 15.5 % 15.0 % 15.2 % (11.6-17.2) (11.6-17.2) (11.6-17.2) Platelet Count 272 TH/MM3 278 TH/MM3 242 TH/MM3 (150-450) (150-450) (150-450) Mean Platelet Volume 9.0 FL 8.3 FL 8.5 FL (7.0-11.0) (7.0-11.0) (7.0-11.0) Sodium Level 134 MEQ/L 137 MEQ/L 137 MEQ/L (136-145) (136-145) (136-145) Potassium Level 4.6 MEQ/L 3.7 MEQ/L 3.8 MEQ/L (3.5-5.1) (3.5-5.1) (3.5-5.1) Chloride Level 93 MEQ/L 94 MEQ/L 94 MEQ/L (98-107) (98-107) (98-107) Carbon Dioxide Level 22.2 MEQ/L 24.2 MEQ/L 22.0 MEQ/L (21.0-32.0) (21.0-32.0) (21.0-32.0) Anion Gap 19 MEQ/L (5-15) 19 MEQ/L (5-15) 21 MEQ/L (5-15) Blood Urea Nitrogen 111 MG/DL 78 MG/DL (7-18) 102 MG/DL (7-18) (7-18) Creatinine 14.13 MG/DL 10.11 MG/DL 11.84 MG/DL (0.60-1.30) (0.60-1.30) (0.60-1.30) Estimat Glomerular Filtration 3 ML/MIN (>89) 5 ML/MIN (>89) 4 ML/MIN (>89) Rate Random Glucose 170 MG/DL 195 MG/DL 206 MG/DL (74-106) (74-106) (74-106) Calcium Level 8.8 MG/DL 9.0 MG/DL 8.7 MG/DL (8.5-10.1) (8.5-10.1) (8.5-10.1) Lactic Acid Level 1.0 mmol/L (0.4-2.0) Blood Gas Puncture Site LT BRACHIAL Blood Gas Patient Temperature 98.6 Blood Gas HCO3 19 mmol/L (22-26) Blood Gas Base Excess -5.0 mmol/L (-2-2) Blood Gas Oxygen Saturation 96 % (90-100) Arterial Blood pH 7.40 (7.380-7.420) Arterial Blood Partial 31 mmHg (38-42) Pressure CO2 Arterial Blood Partial 138 mmHg Pressure O2 (61-120) Arterial Blood Oxygen Content 13.5 Vol % (12.0-20.0) Arterial Blood 1.3 % (0-4) Carboxyhemoglobin Arterial Blood Methemoglobin 1.1 % (0-2) Blood Gas Hemoglobin 9.7 G/DL (12.0-16.0) Oxygen Delivery Device VENTILATOR Blood Gas Ventilator Setting CPAP// Blood Gas Inspired Oxygen 35 % (Simran Sorto) Result Diagram: 09/29/16 0425 09/29/16 0425 Procedures * 09/15/06 -intubation * 09/14/16 -dialysis catheter placement . * 09/11/16 -extubation. * 09/10/16 -intubation. * 09/07/16 -cardiac catheter with angioplasty and stent placement. . (Simran Sorto) Assessment and Plan Disease Oriented Problem List: (1) Acute tubular necrosis (2) Acute ischemic left MCA stroke (3) CAD (coronary artery disease) of bypass graft (4) CHF (congestive heart failure), NYHA class II (5) Liver function failure Symptom Scale: (1) Shortness of breath 0-10 Scale: Unable to quantify Comment: Reintubated 09/15/06. On mechanical ventilation. (2) Debility 0-10 Scale: Unable to quantify Comment: Secondary to CVA, acute complications, hospitalization. Pertinent Non-Medical Issues Psychosocial: . Has 2 children. Living independently prior to this hospitalization. Spiritual: Jew. Legal: Unknown if advance directives have been completed. Ethical issues impacting care: Unknown if advance directives have been completed. . Important Contacts Max Birmingham [phone]. Son Vaibhav Abarca Daughter Yani. . Prognosis Mr. Ferguson is a 66 y/o male with an adhesive significant cardiac history to include stenting in 2010, CAD status post 6 vessel CABG in 2011, and angioplasty and stenting in September 06. He was found to have significant blockage requiring angioplasty and stenting. 2 of 6 grafts are currently patent. Post cardiac catheter, patient developed aphasia and right sided hemiparesis. MRI of the brain showing acute nonhemorrhagic infarct. Patient was intubated and subsequently extubated secondary to respiratory failure and altered mental status. Vertical condition remains the same, he is obtunded and not following any commands. Patient with history of CKD now with acute tubular necrosis requiring renal replacement therapy. His prognosis is poor for a meaningful neurological recovery even if he is to survive this hospitalization given his age, severity of cardiac disease, complications to include stroke, and multiple comorbidities. He is at a very high risk for further decline, complications and . . Code Status: No Code Plan * CODE STATUS: No code. DNR/DNI after medical extubation. * MEDICAL DECISION-MAKING: Patient incapacitated to make healthcare decisions secondary to clinical condition, unclear if he will regain. Max Dubose not sure if patient has completed advance directives. As per [place] statute, healthcare decision-making falls to patient's 3 children. * GOALS OF CARE: 09/29/16. All 3 children: Sedrick Esposito and Yani electing to attempt at medical extubation in the incoming days when patient passes SBT -NO trach, NO reintubation in the event that patient is unable to maintain his airway or acute respiratory distress. After medical extubation, family electing for DNR/DNI. Family is not ready to transition patient to comfort directed care at this time. They will like to continue aggressive management short of no code with the understanding that patient's life expectancy is short (hours to days) given his multiple medical issues. Discussed that patient is not likely to survive to discharge. * Case discussed with Dr. Rodriguez, Dr. Robertson and bedside RN. * SYMPTOMS: == Shortness of breath, patient recently intubated and extubated. Worsening clinical condition. Reintubated 09/15/16, remains on mechanical ventilation. == Debility, secondary to CVA, acute events and hospitalization. = = Anxiety, patient appears calm. * Palliative care contact information has been provided to patient's family. * Palliative care will continue to follow-up to assist with symptom management and to further evaluate goals of care as the clinical course evolves. . (Simran Sorto) Time Spent Total Floor Time (mins): 38 (Total time to include review of medical records, physical exam, bedside conversation with son Vaibhav, telephone conversation with daughter Yani and case discussion with Dr. Rodriguez and Dr. Robertson. ) >50% Counseling/Coord of Care: Yes (Simran Sorto) Attestation To help prompt me to consider important information that might be impacting today's encounter and assessment, information from prior notes written by myself or my colleagues may have been "brought forward" into today's note. My signature on this note, however, is an attestation that I personally performed the exam, history, and/or decision-making noted today, and, unless otherwise indicated, the interactions with patient, family, and staff as well as the review of records all occurred today. I also attest that the listed assessment and stated plan reflect my best clinical judgment today based on the combination of historical information, prior notes, and today's exam/ interactions. When time spent is documented, it refers only to time spent today by the signer, or if indicated, combined time spent today by collaborating physician/nurse practitioner. (Simran Sorto) Collaborating MD Comments Chart reviewed. Cased discussed with palliative care FLATWORK TIER. Above FLATWORK TIER note reviewed and I concur. . (Geovanny Hidalgo MD) Simran Sorto Sep 29, 2016 15:58 Geovanny Hidalgo MD December 13, 2016 13:08
[2016-09-30] VITALS (17 sets, daily range): BP systolic 113–141; BP diastolic 64–79; PULSE 109–121; RESP 18–30; TEMP 98.8–100.6; O2SAT 97–100
[2016-09-30] MEDS: INSULIN NovoLIN REGULAR SUPPLEMENTAL SCALE SQ SCH ×6 (01:00→21:00)
[2016-09-30] MEDS: CHLORHEXIDINE GLUCONATE 2 % 1 PACK (2 CLOTHS) TOP SCH (04:00)
[2016-09-30 05:06] LABS: MEAN CELL VOLUME 89.1 FL (80.0-100.0); MEAN CORPUSCULAR HEMOGLOBIN 29.5 PG (27.0-34.0); MEAN CORPUSCULAR HGB CONC 33.1 % (32.0-36.0); PLATELET COUNT 257 TH/MM3 (150-450); RED BLOOD COUNT 3.03 MIL/MM3 (4.50-5.90); RED CELL DISTRIBUTION WIDTH 14.8 % (11.6-17.2); REVIEW FLAG FINAL; WHITE BLOOD COUNT 13.7 TH/MM3 (4.0-11.0)
[2016-09-30 05:20] LABS: BICARBONATE 25.4 MEQ/L (21.0-32.0); POTASSIUM 3.8 MEQ/L (3.5-5.1)
[2016-09-30] MEDS: METOCLOPRAMIDE HCL 10 MG/2 ML VIAL IV PUSH SCH ×3 (07:56→21:05)
[2016-09-30] MEDS: CHLORHEXIDINE 0.12% (ORAL KIT) 15 ML CUP MT SCH ×2 (08:00→21:06)
[2016-09-30] MEDS: RESP: TOBRAMYCIN SULFATE 300 MG/5 ML NEB NEB SCH (08:00)
[2016-09-30] MEDS: PANTOPRAZOLE SODIUM 40 MG VIAL IV PUSH SCH ×2 (08:00→21:06)
[2016-09-30] MEDS: INSULIN DETEMIR 100 UNITS/ML VIAL SQ SCH ×2 (09:00→21:04)
[2016-09-30] MEDS: HEPARIN SODIUM - SQ 10,000 UNITS/ML VIAL SQ SCH ×2 (09:00→21:04)
[2016-09-30] MEDS: DOCUSATE SODIUM 100 MG/10 ML UDC PO SCH ×2 (09:00→21:05)
[2016-09-30] MEDS: SODIUM CHLORIDE 0.9% FLUSH 5 ML FLUSH IV FLUSH SCH ×2 (09:00→21:06)
[2016-09-30] MEDS: SENNOSIDES SYRUP 8.8 MG/5 ML CUP PO SCH (09:00)
[2016-09-30] MEDS: ASPIRIN 81 MG CHEW TAB CHEW SCH (09:00)
[2016-09-30] MEDS: CLOPIDOGREL 75 MG TAB PO SCH (09:00)
[2016-09-30] MEDS: ARTIFICIAL TEARS OPTH OINT 3.5 APPLIC/3.5 GM TUBO EACH EYE SCH ×2 (09:00→21:06)
[2016-09-30] MEDS: SODIUM CHLORIDE 0.9% FLUSH 5 ML FLUSH IVF SCH (09:00)
[2016-09-30] MEDS: VANCOMYCIN 500 MG VIAL (FOR ORAL USE ONLY) PO SCH ×4 (09:00→21:05)
--- NOTE | 2016-09-30 13:27 | HHI.NPPN ---
Subjective History of Present Illness 66-year-old male with history of coronary artery disease status post CABG, osteoarthritis, diabetes, hyperlipidemia who was admitted there with unstable angina and underwent heart catheterization found to have significant blockages requiring stent and impella device, he has acute renal failure. Additional Remarks Patient on Vent Objective Data Data 09/29/16 09/30/16 19:00 07:00 Intake Total 525 ml 315 ml Output Total 2700.0 ml 595.0 ml Balance -2175.0 ml -280.0 ml IV Total 0 ml 0 ml Tube Feeding 425 ml 250 ml Other 100 ml 65 ml Output Urine Total 0 ml 45 ml Stool Total 100 ml 450 ml Tube Feeding Residual Discard 100.0 ml 100.0 ml Hemodialysis 2500 ml Vital Signs Date Time Temp Pulse Resp B/P Pulse Ox O2 Delivery O2 Flow Rate FiO2 09/30/16 12:51 98 35 09/30/16 12:00 119 09/30/16 12:00 99.3 119 30 122/77 99 09/30/16 12:00 35 09/30/16 10:00 121 09/30/16 08:27 35 09/30/16 08:25 97 35 09/30/16 08:00 35 09/30/16 08:00 118 09/30/16 08:00 100.2 118 24 115/64 99 09/30/16 06:00 117 09/30/16 04:07 99 35 09/30/16 04:00 99.9 116 18 113/79 97 09/30/16 04:00 35 09/30/16 04:00 116 09/30/16 02:00 115 09/30/16 01:22 98 35 09/30/16 00:00 113 09/30/16 00:00 99.6 113 20 114/69 98 09/30/16 00:00 35 09/29/16 22:06 98 35 09/29/16 22:00 110 09/29/16 20:00 99.7 109 18 114/69 96 09/29/16 20:00 109 09/29/16 20:00 35 09/29/16 19:28 99 35 09/29/16 18:05 96 35 09/29/16 18:00 109 09/29/16 16:00 106 09/29/16 16:00 99.9 106 20 115/71 97 09/29/16 16:00 35 09/29/16 14:00 102 -: 09/30/16 0400 09/30/16 0400 Physical Exam General Appearance: Well Developed, Well Nourished Pulmonary Resp Exam: Crackles, Rhonchi, Decreased Bases, Diminished Breath Sounds Cardiology CV Exam: Regular, Normal Sinus Rhythm Gastrointestinal/Abdomen GI Exam: Soft, Non-Tender, Bowel Sounds Present, Distended Extremeties Extremities Exam: Moderate Edema, Pitting Edema, Dependent Edema Neurologic Neuro Exam: Sedated Assessment/Plan Problem List: (1) Acute renal failure Plan: Remains intubated Oliguric renal failure on hemodialysis M,W,F fdc plan still not clear HD next tomorrow has Pneumonia Tobramycin inhalation Pseudomonas Febrile earlier today, continue to monitor (2) Hyperkalemia Plan: Resolved (3) Chronic kidney disease Plan: He has stage III chronic kidney disease due to diabetic (4) CHF (congestive heart failure), NYHA class III Plan: Continue to monitor for improvement (5) Coronary artery disease involving [place] heart Plan: had bypass and stents (6) Hypertension, essential, benign Plan: Monitor blood pressure (7) Diabetes mellitus, type II Plan: Monitor blood glucose (8) UTI (lower urinary tract infection) (9) CVA (cerebral vascular accident) Plan: remain unresponsive moves left side more (10) Need for prophylactic vaccination and inoculation against influenza (11) Clostridium difficile infection Plan: on PO Vanco Problem Qualifiers (1) Acute renal failure: Qualified Code: N17.0 - Acute renal failure with tubular necrosis (2) Chronic kidney disease: Qualified Code: N18.4 - Chronic kidney disease, stage 4 (severe) (3) Diabetes mellitus, type II: Qualified Code: E11.22 - Type 2 diabetes mellitus with diabetic chronic kidney disease, unspecified CKD stage, unspecified intermediate teacher insulin use status (4) CVA (cerebral vascular accident): Marisol Naidu MD Sep 30, 2016 13:27
--- NOTE | 2016-09-30 13:28 | HHI.IDPN ---
Subjective Subjective Remarks Mr. Ferguson is a 66 y/o male with a medical history of CAD status post 6 vessel CABG in 2011, CHF, CAD, hypertension, diabetes mellitus type 2, obesity, and sleep apnea. On 09/07/16, patient underwent cardiac catheterization , he was found to have significant blockage requiring angioplasty and stenting. Post cardiac catheter, patient developed aphasia and right sided hemiparesis. CT of the brain show no acute process. Neurology -Dr. Nguyen consulted. Brain MRI obtained on 09/09/16 showing acute nonhemorrhagic infarction in the left sylvian region. Patient developed respiratory distress and was placed on BiPAP , subsequently intubated and placed on mechanical ventilation. developed ARF, on HD Patient was being treated for aspiration Pneumonia. Intubated September 15 Started on HD Sep 14 Infectious disease following for septic shock, aspiration Pneumonia, confirmed C. difficile colitis. Notes reviewed D/W RN Low grade fevers. Appear to be defervescing Did not tolerate SBT. HD M,W,F. Was on pressors last night transiently. Has liquid stool Small thin white ET secretions BC negative Has RIJ TLC and vascath Sputum 09/17 with Pseudomonas, resistant Antibiotics Vanco oral for Cdiff Tobra nebs for MDR PSAE. Lines RIJ TLC and vascath Past Medical History reviewed Allergies: Coded Allergies: No Known Allergies (Verified , 09/07/16) Objective . Vital Signs Date Time Temp Pulse Resp B/P Pulse Ox O2 Delivery O2 Flow Rate FiO2 09/30/16 12:51 98 35 09/30/16 12:00 119 09/30/16 12:00 99.3 119 30 122/77 99 09/30/16 12:00 35 09/30/16 10:00 121 09/30/16 08:27 35 09/30/16 08:25 97 35 09/30/16 08:00 35 09/30/16 08:00 118 09/30/16 08:00 100.2 118 24 115/64 99 09/30/16 06:00 117 09/30/16 04:07 99 35 09/30/16 04:00 99.9 116 18 113/79 97 09/30/16 04:00 35 09/30/16 04:00 116 09/30/16 02:00 115 09/30/16 01:22 98 35 09/30/16 00:00 113 09/30/16 00:00 99.6 113 20 114/69 98 09/30/16 00:00 35 09/29/16 22:06 98 35 09/29/16 22:00 110 09/29/16 20:00 99.7 109 18 114/69 96 09/29/16 20:00 109 09/29/16 20:00 35 09/29/16 19:28 99 35 09/29/16 18:05 96 35 09/29/16 18:00 109 09/29/16 16:00 106 09/29/16 16:00 99.9 106 20 115/71 97 09/29/16 16:00 35 09/29/16 14:00 102 09/29/16 09/29/16 09/30/16 15:00 23:00 07:00 Intake Total 525 ml 140 ml 175 ml Output Total 200.0 ml 2725 ml 370.0 ml Balance 325.0 ml -2585 ml -195.0 ml IV Total 0 ml 0 ml 0 ml Tube Feeding 425 ml 110 ml 140 ml Other 100 ml 30 ml 35 ml Output Urine Total 0 ml 25 ml 20 ml Stool Total 100 ml 200 ml 250 ml Tube Feeding Residual Discard 100.0 ml 100.0 ml Hemodialysis 2500 ml . Laboratory Tests Test 09/29/16 09/30/16 04:25 04:00 White Blood Count 14.2 TH/MM3 13.7 TH/MM3 Red Blood Count 2.99 MIL/MM3 3.03 MIL/MM3 Hemoglobin 8.9 GM/DL 8.9 GM/DL Hematocrit 26.9 % 27.0 % Mean Corpuscular Volume 90.0 FL 89.1 FL Mean Corpuscular Hemoglobin 29.6 PG 29.5 PG Mean Corpuscular Hemoglobin 32.9 % 33.1 % Concent Red Cell Distribution Width 15.2 % 14.8 % Platelet Count 242 TH/MM3 257 TH/MM3 Mean Platelet Volume 8.5 FL 8.8 FL Laboratory Tests Test 09/29/16 09/30/16 04:25 04:00 Sodium Level 137 MEQ/L 137 MEQ/L Potassium Level 3.8 MEQ/L 3.8 MEQ/L Chloride Level 94 MEQ/L 93 MEQ/L Carbon Dioxide Level 22.0 MEQ/L 25.4 MEQ/L Anion Gap 21 MEQ/L 19 MEQ/L Blood Urea Nitrogen 102 MG/DL 76 MG/DL Creatinine 11.84 MG/DL 9.25 MG/DL Estimat Glomerular Filtration 4 ML/MIN 6 ML/MIN Rate Random Glucose 206 MG/DL 250 MG/DL Calcium Level 8.7 MG/DL 9.2 MG/DL Imaging Liver Ultrasound 09/17/16 1030 Signed Impressions: Service Date/Time: Saturday, September 17, 2016 11:01 - CONCLUSION: 1. Minimally complex cyst right mid kidney. 2. Liver mildly enlarged. Cesar Mcfadden MD Abdomen X-Ray 09/17/16 0600 Signed Impressions: Service Date/Time: Saturday, September 17, 2016 05:05 - CONCLUSION: Nonspecific abdomen appearance. Michael Ross MD Chest X-Ray 09/15/16 1621 Signed Impressions: Service Date/Time: Thursday, September 15, 2016 16:33 - CONCLUSION: 1. Uncomplicated line placement. No evidence of pneumothorax. Wesley Chaudhari MD Head CT 09/15/16 0000 Signed Impressions: Service Date/Time: Thursday, September 15, 2016 10:15 - CONCLUSION: 1. Sizable area of decreased attenuation in the left MCA distribution most consistent with subacute cortical infarct. This there is stable compared to previous MR dated 09/09/16. Sanket Gonzalez MD Central Venous Line 09/15/16 0000 Signed Impressions: Service Date/Time: Thursday, September 15, 2016 00:00 - CONCLUSION: Uncomplicated line placement as above. Wesley Chaudhari MD Abdomen/Pelvis CT 09/15/16 0000 Signed Impressions: Service Date/Time: Thursday, September 15, 2016 17:00 - CONCLUSION: 1. Gaseous distension of the stomach. 2. I do not see evidence for significant colitis. Lowell Gonzalez MD FACR Catheter Placement X-Ray 09/14/16 0000 Signed Impressions: Service Date/Time: Wednesday, September 14, 2016 00:00 - CONCLUSION: Uncomplicated line placement as above. Wesley Chaudhari MD Carotid Artery Ultrasound 09/13/16 0000 Signed Impressions: Service Date/Time: Tuesday, September 13, 2016 16:46 - CONCLUSION: Significant plaque remains evident in the carotid bifurcations. Poor visualization and difficulty velocity sampling of the proximal internal carotid arteries was again encountered. Significant carotid stenosis cannot be excluded. Nonvisualization of the vertebral arteries. Mack Brizuela MD Brain MRI 09/09/16 0000 Signed Impressions: Service Date/Time: August 16:36 - CONCLUSION: 1. Findings demonstrate an acute infarction in the left sylvian region, nonhemorrhagic. 2. Small air-fluid level right maxillary sinus and mild bilateral ethmoid sinus disease. Suresh Diaz MD Renal Ultrasound 09/08/16 0000 Signed Impressions: Service Date/Time: Thursday, September 08, 2016 16:04 - CONCLUSION: Large 6.3 cm cyst lower pole laterally left kidney. No evidence of hydronephrosis or obstructive uropathy.. Christian Cooper MD Physical Exam GENERAL: Obese male patient, sedated, on the vent. Comfortable on CPAP SKIN: No rashes, ecchymoses or lesions. Cool and dry. HEAD: Atraumatic. Normocephalic. No temporal or scalp tenderness. EYES: Pupils equal round and reactive. No scleral icterus. No injection or drainage. ENT: Intubated. Oral mucosae moist NECK: Trachea midline. Supple, nontender, no meningeal signs. Line in neck looks ok CARDIOVASCULAR: Heart sounds audible. RESPIRATORY: Clear to auscultation. Breath sounds equal bilaterally. GASTROINTESTINAL: Abdomen soft, non-tender, nondistended. MUSCULOSKELETAL: Extremities without clubbing, cyanosis, or edema. NEUROLOGICAL: Sedated Psych can not be assessed IV line sites with no evidence of infection. : Guillen in place Assessment & Plan Remarks IMPRESSION Aspiration Pneumonia, tracheobronchitis: MDR PSAE. Clostridium diff colitis Acute resp failure on vent. Acute metabolic encephalopathy: stroke, sepsis, metabolic. Acute renal failure: meds, sepsis, ATN on HD now. CAD, IA Acute stroke Recs Continue Vanco oral for Cdiff Continue Abelardo nebs (stop date in chart for MDR PSAE) Observe clinically on above regimen. Intermittent fevers: ? drug fever vs underlying Cdiff. D/W RN: informs me family considering terminal extubation. No Code DNR noted. d/w Dr.John Chance will be OOT from 10/01/16 to 10/08/16 other ID MDs to cover for me. Era Becker MD Sep 30, 2016 13:28
--- NOTE | 2016-09-30 14:03 | HHI.CCPN ---
Subjective Remarks/Hospital Course 66-year-old gentleman with a history of coronary artery disease status post CABG underwent emergent cardiac catheterization by Dr. Cummins. Postprocedure his course is complicated by aphasia and right-sided weakness. 09/08 Patient was on BIPAP 14/7 with FIO2 25%. On Precedex and heparin drips. CT brain showed last night showed no acute process. Impela was removed this morning by Dr. Cummins. T:99.9 Renal function improving with Cr:2.5 from 3.0 hyperkalemic with K 6.1 09/09: Overnight remained on BiPAP predominantly for sleep apnea. Intermittently follows commands. Will check MRI of the brain today. Creatinine slightly worsened to 2.8. Consulted nephrology, hyperkalemia resolved 09/10: Remains on BiPAP, some interval worsening of respiratory status. Patient is more tachypneic chest x-ray shows left lower lobe infiltrate .Currently sedated with 0.5 g per KG per hour of Precedex. I will discontinue Precedex. MRI brain shows acute infarct left sylvian region. Creatinine slightly worse at 3. Low-grade fever Tmax 100.2, send blood and sputum culture and start Zosyn 09/11: Patient was intubated yesterday for progressively worsening respiratory failure, hypoxemia and altered mentation. On ventilator support patient's oxygenation has improved. He moves all extremities do not following commands. Chest x-ray shows no definite infiltrates 09/12: Extubated yesterday tolerating well oxygenation varghese and protecting airway. No fevers. Urine output 3.8 L in 24 hours with creatinine worsening from 3.9 to 4.5 today. Remains aphasic not following commands 09/13: Somnolent, received Ativan for agitation overnight. Urine output 4 L in 24 hours. Labs are pending at this time. Opens eyes to verbal stimulation, remains aphasic and did not follow commands 09/14 Patient appears somnolent. On no sedation. Renal function worse today with Cr: 7.31 from 5.40 and UO: 715ml in 24hrs. T:100.9 this morning. Remains aphasic. 09/15 Patient was placed on Amio drip overnight for Afib with RVR. HD initiated yesterday with removal 2L. He is currently receiving another HD treatment. Tmax 100.9. Patient remains encephalopathic and does not follow commands. TF was held due to high residuals. 09/16 Patient was intubated yesterday for airway protection. On Fentanyl drip for sedation on Neosyn. Tmax 104. C-diff PCR positive. CT abd/pelvis showed no acute process, gaseous distention. 09/17 Patient remains intubated and sedated with Fentanyl. On Neosyn 75 mics. T: 101.8 at 4 am. 09/18 Patient remains sedated and intubated. T:101.1 last night. On Neosyn 60 mics. 09/19 No acute events overnight. Off Neosyn and is on Fentanyl infusion for sedation. T:100.5. Tolerated CPAP x 4 hrs yesterday. Patient was able to open up his eyes off sedation. 09/20 Patient remains sedated with Fentanyl and intubated. T:99.8 last night. WBC trending down. Off Neosyn. For J-tube placement by IR today. 09/21 Patient remains sedated and intubated. T:100.0 last night. s/p HD yesterday with removal 3.5L. 09/22-continues to have low-grade fever. On sedation hold open size moves all extremities do not follow commands. White count stable at 17.8 09/23/16: T 100.3, white count slightly improved 16.9. Neuro exam remains unchanged family has not decided about trach yet wants to wait a few more days 09/24 No acute events overnight. T;100.4 last night. On Fentanyl infusion for sedation. TF held for high residuals. For HD today. 09/25: no significant clinical change. still with low grade temps. mental status still poor. wbc persistently elevated. 09/26: continues with fevers. wbc uptrended overnight. no changes in severe encephalopathy. 09/27: fevers defervesced overnight. continues to be encephalopathic. I had a long conversation with his daughter today and they are considering possible extubation and transition to palliation vs. tracheostomy. 09/28: no clinical change. failed SBT for tachypnea and RSBI > 105. per family discussions, will plan on medical extubation when he passes SBT in near future, with the understanding that when he is extubated, his code status will change to DNR/DNI and if he fails extubation, we will make him comfortable and pursue palliation. 09/29: No acute events overnight MAXIMUM TEMPERATURE is 100.2. WBC count has improved to 14.2 from 17.1 unable to follow commands. Attempt C Pap again today. failed SBT yesterday 09/30: Less responsive today. No spontaneous eye opening, still not following commands. Unable to extubate due to poor mentation Objective Vital Signs Date Time Temp Pulse Resp B/P Pulse Ox O2 Delivery O2 Flow Rate FiO2 09/30/16 12:51 98 35 09/30/16 12:00 119 09/30/16 12:00 99.3 30 122/77 Intake and Output 09/29/16 09/29/16 09/30/16 08:00 16:00 00:00 Intake Total 447 ml 525 ml 140 ml Output Total 400.0 ml 2700.0 ml 225 ml Balance 47.0 ml -2175.0 ml -85 ml Result Diagram: 09/30/16 0400 09/30/16 0400 Imaging Last Impressions Chest X-Ray 09/24/16 0600 Signed Impressions: Service Date/Time: Saturday, September 24, 2016 05:05 - CONCLUSION: Interval development of non-consolidative infiltrates in both lower lungs. Suresh Diaz MD Liver Ultrasound 09/17/16 1030 Signed Impressions: Service Date/Time: Saturday, September 17, 2016 11:01 - CONCLUSION: 1. Minimally complex cyst right mid kidney. 2. Liver mildly enlarged. Cesar Mcfadden MD Abdomen X-Ray 09/17/16 0600 Signed Impressions: Service Date/Time: Saturday, September 17, 2016 05:05 - CONCLUSION: Nonspecific abdomen appearance. Michael Ross MD Head CT 09/15/16 0000 Signed Impressions: Service Date/Time: Thursday, September 15, 2016 10:15 - CONCLUSION: 1. Sizable area of decreased attenuation in the left MCA distribution most consistent with subacute cortical infarct. This there is stable compared to previous MR dated 09/09/16. Sanket Gonzalez MD Central Venous Line 09/15/16 0000 Signed Impressions: Service Date/Time: Thursday, September 15, 2016 00:00 - CONCLUSION: Uncomplicated line placement as above. Wesley Chaudhari MD Abdomen/Pelvis CT 09/15/16 0000 Signed Impressions: Service Date/Time: Thursday, September 15, 2016 17:00 - CONCLUSION: 1. Gaseous distension of the stomach. 2. I do not see evidence for significant colitis. Lowell Gonzalez MD FACR Catheter Placement X-Ray 09/14/16 0000 Signed Impressions: Service Date/Time: Wednesday, September 14, 2016 00:00 - CONCLUSION: Uncomplicated line placement as above. Wesley Chaudhari MD Carotid Artery Ultrasound 09/13/16 0000 Signed Impressions: Service Date/Time: Tuesday, September 13, 2016 16:46 - CONCLUSION: Significant plaque remains evident in the carotid bifurcations. Poor visualization and difficulty velocity sampling of the proximal internal carotid arteries was again encountered. Significant carotid stenosis cannot be excluded. Nonvisualization of the vertebral arteries. Mack Brizuela MD Brain MRI 09/09/16 0000 Signed Impressions: Service Date/Time: August 16:36 - CONCLUSION: 1. Findings demonstrate an acute infarction in the left sylvian region, nonhemorrhagic. 2. Small air-fluid level right maxillary sinus and mild bilateral ethmoid sinus disease. Suresh Diaz MD Renal Ultrasound 09/08/16 0000 Signed Impressions: Service Date/Time: Thursday, September 08, 2016 16:04 - CONCLUSION: Large 6.3 cm cyst lower pole laterally left kidney. No evidence of hydronephrosis or obstructive uropathy.. Christian Cooper MD Objective Remarks GENERAL: Critically ill elderly male, intubated, of all sedation HEENT: Atraumatic normocephalic. Pupils are round and reactive mucous membranes moist. NECK: Trachea midline. No JVD CARDIOVASCULAR: Regular rate and rhythm., sinus by tele. RESPIRATORY: Breath sounds equal bilaterally. No accessory muscle use. GASTROINTESTINAL: Abdomen soft, non-tender, nondistended. MUSCULOSKELETAL: No cyanosis, or edema. NEURO: No spontaneous eye opening today, more lethargic. 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 multiple organ systems still critically ill, including acute resp failure, encephalopathy, kidney injury, multiple nosocomial infections including pseudomonas pneumonia and C.Difficile. poor prognosis. I do not think he will protect his airway. After long discussions with his family, plan to pursue trial of extubation when medically necessary and if he fails, convert to palliation at that time. no trach per family. we will re-discuss plan of care if we do not think he is ready to extubate from a pulmonary standpoint. In the interim, they did want him to be DNR with no chest compressions if he were to sustain a cardiac arrest. Plan Neuro: Acute left MCA stroke Aphasia with right hemiparesis Metabolic encephalopathy -For sedation for 24 hours, mental status does not improving -MRI brain 09/09/16-acute left sylvian region infarct. CT brain 09/07: No acute disease. -Repeat CT brain 09/15: Sizable area of decreased attenuation in the left MCA distribution most consistent with subacute cortical infarct -Continue aspirin and Plavix. Neuro was following- Cr. Nguyen. -09/13 EEG: within normal. Pulm: Acute respiratory failure Obstructive sleep apnea -Continue with vent support keep sat >90% -Bronchodilators, ICU vent bundle, CPAP trials daily. Mental status will not permit extubation at this time -on PS 15/5, working on weaning support. -Re intubated on 09/15/16 -Palliative care following -Patient cannot be extubated as he will not be able to protect airway CV: NSTEMI Known CAD HTN Hyperlipidemia -Monitor HR and BP keep MAP>65mmHg -Continue with ASA, Plavix. Imdur and Lopressor on hold due to hypotension -Lipitor held for elevated LFT's -s/p cardiac cath 09/07 showed multivessel disease with 2/6 grafts patent, EF 40% . s/p PCI with stents of the saphenous venous graft to the first diagonal artery. -s/p removal Impella 09/08. Cardiology- Dr. Cummins : Acute on chronic kidney disease -Monitor renal function, I/O's, avoid nephrotoxins. -HD initiated 09/14 , renal-Dr. Naidu. . Monitor CK's ( trending down). Most likely he'll be dialysis dependent GI: Hyperkalemia-resolved -On Protonix 40mg -GI is following -Monitor LFT's ( trending down), Hepatitis profile negative on 09/14 -US Liver: Minimally complex cyst right mid kidney. Liver mildly enlarged. -Continue with TF- Nepro advance to goal rate ID: UTI with enterococcus HCAP Leukocytosis C-diff colitis Sputum cx: 09/17 Pseudomonas -Continue abx per ID ( PO Vanco, Tobra nebs). Monitor for signs of infections ( Fever, WBC) -f/u BC x 2 sets 09/21: NGTD -CT abd/pelvis: Gaseous distention, no acute process -KUB abdomen 09/17- non specific bowel gas pattern Heme: -Monitor CBC Endo: DM -SSI( Medium) with accuchecks for glycemic control, Levemir 5u Q12 GI prophylaxis - on Protonix 40mg Q12 DVT prophylaxis - SCD, Heparin 5000 units sq very 12 Palliative care is following. Family considering possible withdrawal of care Lines: Right Vascth placed 09/14, Right IJ CVP placed 09/15. Problem Qualifiers (1) Acute renal failure: Qualified Code: N17.0 - Acute renal failure with tubular necrosis Krishna Rodriguez MD Sep 30, 2016 14:03
--- NOTE | 2016-09-30 16:40 | HHI.HCPN ---
Reason for visit a. To assist with evaluation and management of symptoms including: shortness of breath and debility. b. To assist medical decision maker(s) with: better understanding of current medical conditions; weighing benefits/burdens of medical treatment options; making medical treatment decisions. . (Simran Sorto) Subjective/Interval History Patient seen in ICU. He remains in critical condition -intubated, sedated on mechanical ventilation. Not opening eyes to tactile or verbal stimuli. nonpurposeful movement noted to all 4 extremities. Facial grimacing noted when suctioned orally. Not following any commands. Reported as less responsive neurologically today. Remain experiencing low-grade temperatures overnight, Max temp 100.2. Tachycardic with heart rate in the high 110s. Stable BP. Has been tolerating CPAP trials but failed spontaneous breathing trial yesterday. Laboratory today to include 13.7, Hgb 8.9, platelet count 257. Sodium 137, potassium 3.8, BUN/creatinine 76/9.25. . Family/friend interactions Telephone call to patient's daughter Yani. Medical update provided. Reviewed worsening neurological status, patient is less responsive today. Not spontaneously opening eyes. Unable to medically extubate. Discussed with daughter that in the event of inability to medically extubate, options at that time would be continuation of aggressive care to include tracheostomy and PEG tube versus comfort directed care/withdrawal my support. Daughter verbalized understanding. She was encouraged to discuss options of treatment with siblings eSdrick and Vaibhav. . (Simran Sorto) Advance Directives Living Will: Never completed Health Care Surrogate: Never completed Durable Power of Kinesiotherapist: Never completed (Simran Sorto) Advance Directive Specifics Health Care Surrogate(s): Son Sedrick not sure if patient has completed advance directives. As per [place] statute, healthcare decision-making falls to patient's 3 children. . Documented care wishes: No advance directives or living will completed. . Significant change in goals: No code. Continue attempts at medical extubation. . (Simran Sorto) Objective Vital Signs Date Time Temp Pulse Resp B/P Pulse Ox O2 Delivery O2 Flow Rate FiO2 09/30/16 16:00 100.6 119 22 141/79 97 09/30/16 16:00 35 3/16/17 16:00 119 09/30/16 14:00 117 09/30/16 12:51 98 35 09/30/16 12:00 119 09/30/16 12:00 99.3 119 30 122/77 99 09/30/16 12:00 35 09/30/16 10:00 121 09/30/16 08:27 35 09/30/16 08:25 97 35 09/30/16 08:00 35 09/30/16 08:00 118 09/30/16 08:00 100.2 118 24 115/64 99 09/30/16 06:00 117 09/30/16 04:07 99 35 09/30/16 04:00 99.9 116 18 113/79 97 09/30/16 04:00 35 09/30/16 04:00 116 09/30/16 02:00 115 09/30/16 01:22 98 35 09/30/16 00:00 113 09/30/16 00:00 99.6 113 20 114/69 98 09/30/16 00:00 35 09/29/16 22:06 98 35 09/29/16 22:00 110 09/29/16 20:00 99.7 109 18 114/69 96 09/29/16 20:00 109 09/29/16 20:00 35 09/29/16 19:28 99 35 09/29/16 18:05 96 35 09/29/16 18:00 109 Intake & Output 09/30/16 09/30/16 07:00 19:00 Intake Total 315 ml 110 ml Output Total 595.0 ml 510.0 ml Balance -280.0 ml -400.0 ml IV Total 0 ml Tube Feeding 250 ml 80 ml Other 65 ml 30 ml Output Urine Total 45 ml 10 ml Stool Total 450 ml 300 ml Tube Feeding Residual Discard 100.0 ml 200.0 ml Physical Exam CONSTITUTIONAL/GENERAL: This is an adequately nourished patient in no acute distress. Sedated, intubated on mechanical ventilation. TUBES/LINES/DRAINS: PIV's, SCDs, Guillen catheter, right IJ dialysis catheter. ETT , OG tube. Rectal tube with moderate amount of watery stool. SKIN: No jaundice, rashes, or lesions. No wounds seen anteriorly. Not diaphoretic. HEAD: Atraumatic. Normocephalic. ENT: Unable to evaluate hearing secondary to clinical condition. Nose without bleeding or purulent drainage. ETT in place. Moderate amount of oral secretions noted. CARDIOVASCULAR: Tachycardic with heart rate in the 120s. Irregular rate and rhythm. RESPIRATORY/CHEST: Symmetric, unlabored. coarse breath sounds anteriorly. Intubated on mechanical ventilation. GASTROINTESTINAL: Abdomen soft, large, round. Bowel sounds hypoactive. Tube feeding will help. GENITOURINARY: Without palpable bladder distension. Guillen catheter in place. MUSCULOSKELETAL: Extremities without clubbing, cyanosis. NEUROLOGICAL: Unresponsive to tactile or verbal stimuli. Not following any commands. Involuntary movement to 4 extremities noted. PSYCHIATRIC: Unable to assess secondary to clinical condition. Appears calm. . (Simran Sotro) Diagnostic Tests Laboratory Laboratory Tests Test 09/28/16 09/29/16 09/29/16 09/30/16 04:55 04:25 09:58 04:00 White Blood Count 17.1 TH/MM3 14.2 TH/MM3 13.7 TH/MM3 (4.0-11.0) (4.0-11.0) (4.0-11.0) Red Blood Count 3.12 MIL/MM3 2.99 MIL/MM3 3.03 MIL/MM3 (4.50-5.90) (4.50-5.90) (4.50-5.90) Hemoglobin 9.2 GM/DL 8.9 GM/DL 8.9 GM/DL (13.0-17.0) (13.0-17.0) (13.0-17.0) Hematocrit 27.9 % 26.9 % 27.0 % (39.0-51.0) (39.0-51.0) (39.0-51.0) Mean Corpuscular Volume 89.4 FL 90.0 FL 89.1 FL (80.0-100.0) (80.0-100.0) (80.0-100.0) Mean Corpuscular Hemoglobin 29.4 PG 29.6 PG 29.5 PG (27.0-34.0) (27.0-34.0) (27.0-34.0) Mean Corpuscular Hemoglobin 32.8 % 32.9 % 33.1 % Concent (32.0-36.0) (32.0-36.0) (32.0-36.0) Red Cell Distribution Width 15.0 % 15.2 % 14.8 % (11.6-17.2) (11.6-17.2) (11.6-17.2) Platelet Count 278 TH/MM3 242 TH/MM3 257 TH/MM3 (150-450) (150-450) (150-450) Mean Platelet Volume 8.3 FL 8.5 FL 8.8 FL (7.0-11.0) (7.0-11.0) (7.0-11.0) Sodium Level 137 MEQ/L 137 MEQ/L 137 MEQ/L (136-145) (136-145) (136-145) Potassium Level 3.7 MEQ/L 3.8 MEQ/L 3.8 MEQ/L (3.5-5.1) (3.5-5.1) (3.5-5.1) Chloride Level 94 MEQ/L 94 MEQ/L 93 MEQ/L (98-107) (98-107) (98-107) Carbon Dioxide Level 24.2 MEQ/L 22.0 MEQ/L 25.4 MEQ/L (21.0-32.0) (21.0-32.0) (21.0-32.0) Anion Gap 19 MEQ/L (5-15) 21 MEQ/L (5-15) 19 MEQ/L (5-15) Blood Urea Nitrogen 78 MG/DL (7-18) 102 MG/DL 76 MG/DL (7-18) (7-18) Creatinine 10.11 MG/DL 11.84 MG/DL 9.25 MG/DL (0.60-1.30) (0.60-1.30) (0.60-1.30) Estimat Glomerular Filtration 5 ML/MIN (>89) 4 ML/MIN (>89) 6 ML/MIN (>89) Rate Random Glucose 195 MG/DL 206 MG/DL 250 MG/DL (74-106) (74-106) (74-106) Lactic Acid Level 1.0 mmol/L (0.4-2.0) Calcium Level 9.0 MG/DL 8.7 MG/DL 9.2 MG/DL (8.5-10.1) (8.5-10.1) (8.5-10.1) Blood Gas Puncture Site LT BRACHIAL Blood Gas Patient Temperature 98.6 Blood Gas HCO3 19 mmol/L (22-26) Blood Gas Base Excess -5.0 mmol/L (-2-2) Blood Gas Oxygen Saturation 96 % (90-100) Arterial Blood pH 7.40 (7.380-7.420) Arterial Blood Partial 31 mmHg (38-42) Pressure CO2 Arterial Blood Partial 138 mmHg Pressure O2 (61-120) Arterial Blood Oxygen Content 13.5 Vol % (12.0-20.0) Arterial Blood 1.3 % (0-4) Carboxyhemoglobin Arterial Blood Methemoglobin 1.1 % (0-2) Blood Gas Hemoglobin 9.7 G/DL (12.0-16.0) Oxygen Delivery Device VENTILATOR Blood Gas Ventilator Setting CPAP/8/5 Blood Gas Inspired Oxygen 35 % (Simran Sorto) Result Diagram: 09/30/160 09/30/160 Procedures * 09/15/06 -intubation * 09/14/16 -dialysis catheter placement . * 09/11/16 -extubation. * 09/10/16 -intubation. * 09/07/16 -cardiac catheter with angioplasty and stent placement. . (Simran Sorto) Assessment and Plan Disease Oriented Problem List: (1) Acute tubular necrosis (2) Acute ischemic left MCA stroke (3) CAD (coronary artery disease) of bypass graft (4) CHF (congestive heart failure), NYHA class II (5) Liver function failure Symptom Scale: (1) Shortness of breath 0-10 Scale: Unable to quantify Comment: Reintubated 09/15/06. On mechanical ventilation. (2) Debility 0-10 Scale: Unable to quantify Comment: Secondary to CVA, acute complications, hospitalization. Pertinent Non-Medical Issues Psychosocial: . Has 2 children. Living independently prior to this hospitalization. Spiritual: Jewish. Legal: Unknown if advance directives have been completed. Ethical issues impacting care: Unknown if advance directives have been completed. . Important Contacts Max Birmingham [phone]. Son Vaibhav . Daughter Yani. . Prognosis Mr. Ferguson is a 66 y/o male with an adhesive significant cardiac history to include stenting in 2010, CAD status post 6 vessel CABG in 2011, and angioplasty and stenting in September 06. He was found to have significant blockage requiring angioplasty and stenting. 2 of 6 grafts are currently patent. Post cardiac catheter, patient developed aphasia and right sided hemiparesis. MRI of the brain showing acute nonhemorrhagic infarct. Patient was intubated and subsequently extubated secondary to respiratory failure and altered mental status. Vertical condition remains the same, he is obtunded and not following any commands. Patient with history of CKD now with acute tubular necrosis requiring renal replacement therapy. His prognosis is poor for a meaningful neurological recovery even if he is to survive this hospitalization given his age, severity of cardiac disease, complications to include stroke, and multiple comorbidities. He is at a very high risk for further decline, complications and . . Code Status: No Code Plan * CODE STATUS: No code. DNR/DNI after medical extubation. * MEDICAL DECISION-MAKING: Patient incapacitated to make healthcare decisions secondary to clinical condition, unclear if he will regain. Son Sedrick not sure if patient has completed advance directives. As per [place] statute, healthcare decision-making falls to patient's 3 children. * GOALS OF CARE: All 3 children: Vaibhav, Sedrick and Yani electing to attempt at medical extubation in the incoming days when patient passes SBT -NO trach, NO reintubation in the event that patient is unable to maintain his airway or acute respiratory distress. After medical extubation, family electing for DNR/ DNI. Telephone call to patient's daughter Yani. Medical update provided. Reviewed worsening neurological status, patient is less responsive today. No spontaneous eyes opening. Unable to medically extubate. Discussed with daughter that in the event of inability to medically extubate, options at that time would be continuation of aggressive care to include tracheostomy and PEG tube versus comfort directed care/withdrawal of life support. Daughter verbalized understanding. She was encouraged to discuss options of treatment with siblings Sedrick and Vaibhav. * Case discussed with bedside RN. * SYMPTOMS: == Shortness of breath, patient recently intubated and extubated. Worsening clinical condition. Reintubated 09/15/16, remains on mechanical ventilation. == Debility, secondary to CVA, acute events and hospitalization. = = Anxiety, patient appears calm. * Palliative care contact information has been provided to patient's family. * Palliative care will continue to follow-up to assist with symptom management and to further evaluate goals of care as the clinical course evolves. . (Simran Sorto) Time Spent Total Floor Time (mins): 45 (Total time to include review of medical records, physical exam, telephone conversation with patient's daughter Yani and case discussion with bedside RN.) >50% Counseling/Coord of Care: Yes (Simran Sorto) Attestation To help prompt me to consider important information that might be impacting today's encounter and assessment, information from prior notes written by myself or my colleagues may have been "brought forward" into today's note. My signature on this note, however, is an attestation that I personally performed the exam, history, and/or decision-making noted today, and, unless otherwise indicated, the interactions with patient, family, and staff as well as the review of records all occurred today. I also attest that the listed assessment and stated plan reflect my best clinical judgment today based on the combination of historical information, prior notes, and today's exam/ interactions. When time spent is documented, it refers only to time spent today by the signer, or if indicated, combined time spent today by collaborating physician/nurse practitioner. (Simran Sorto) Collaborating MD Comments Chart reviewed. Cased discussed with palliative care SALES APPLICATIONS ENGINEER. Above SALES APPLICATIONS ENGINEER note reviewed and I concur. . (Geovanny Hidalgo MD) Smiran Sorto Sep 30, 2016 16:40 Geovanny Hidalgo MD December 13, 2016 13:18
[2016-10-01] VITALS (18 sets, daily range): BP systolic 104–124; BP diastolic 66–78; PULSE 108–132; RESP 18–22; TEMP 98.4–100.8; O2SAT 95–100
[2016-10-01] MEDS: INSULIN NovoLIN REGULAR SUPPLEMENTAL SCALE SQ SCH ×6 (01:00→21:00)
[2016-10-01 02:59] LABS: MEAN CELL VOLUME 90.1 FL (80.0-100.0); MEAN CORPUSCULAR HEMOGLOBIN 28.9 PG (27.0-34.0); MEAN CORPUSCULAR HGB CONC 32.1 % (32.0-36.0); PLATELET COUNT 236 TH/MM3 (150-450); RED BLOOD COUNT 3.11 MIL/MM3 (4.50-5.90); RED CELL DISTRIBUTION WIDTH 14.8 % (11.6-17.2); REVIEW FLAG FINAL; WHITE BLOOD COUNT 13.8 TH/MM3 (4.0-11.0)
[2016-10-01 03:16] LABS: BICARBONATE 24.4 MEQ/L (21.0-32.0)
[2016-10-01] MEDS: CHLORHEXIDINE GLUCONATE 2 % 1 PACK (2 CLOTHS) TOP SCH (04:00)
[2016-10-01] MEDS: METOCLOPRAMIDE HCL 10 MG/2 ML VIAL IV PUSH SCH ×3 (05:27→21:08)
[2016-10-01] MEDS: DOCUSATE SODIUM 100 MG/10 ML UDC PO SCH ×2 (09:00→21:00)
[2016-10-01] MEDS: SENNOSIDES SYRUP 8.8 MG/5 ML CUP PO SCH (09:00)
[2016-10-01] MEDS: INSULIN DETEMIR 100 UNITS/ML VIAL SQ SCH ×2 (10:06→21:43)
[2016-10-01] MEDS: ASPIRIN 81 MG CHEW TAB CHEW SCH (10:08)
[2016-10-01] MEDS: PANTOPRAZOLE SODIUM 40 MG VIAL IV PUSH SCH ×2 (10:08→21:11)
[2016-10-01] MEDS: CLOPIDOGREL 75 MG TAB PO SCH (10:08)
[2016-10-01] MEDS: ARTIFICIAL TEARS OPTH OINT 3.5 APPLIC/3.5 GM TUBO EACH EYE SCH ×2 (10:08→21:00)
[2016-10-01] MEDS: HEPARIN SODIUM - SQ 10,000 UNITS/ML VIAL SQ SCH ×2 (10:10→21:08)
[2016-10-01] MEDS: SODIUM CHLORIDE 0.9% FLUSH 5 ML FLUSH IV FLUSH SCH ×2 (10:10→21:07)
[2016-10-01] MEDS: SODIUM CHLORIDE 0.9% FLUSH 5 ML FLUSH IVF SCH (10:10)
[2016-10-01] MEDS: CHLORHEXIDINE 0.12% (ORAL KIT) 15 ML CUP MT SCH ×2 (10:10→21:11)
[2016-10-01] MEDS: VANCOMYCIN 500 MG VIAL (FOR ORAL USE ONLY) PO SCH ×4 (10:13→21:07)
--- NOTE | 2016-10-01 11:50 | HHI.CCPN ---
Subjective Remarks/Hospital Course 66-year-old gentleman with a history of coronary artery disease status post CABG underwent emergent cardiac catheterization by Dr. Cummins. Postprocedure his course is complicated by aphasia and right-sided weakness. 09/08 Patient was on BIPAP 14/7 with FIO2 25%. On Precedex and heparin drips. CT brain showed last night showed no acute process. Impela was removed this morning by Dr. Cummins. T:99.9 Renal function improving with Cr:2.5 from 3.0 hyperkalemic with K 6.1 09/09: Overnight remained on BiPAP predominantly for sleep apnea. Intermittently follows commands. Will check MRI of the brain today. Creatinine slightly worsened to 2.8. Consulted nephrology, hyperkalemia resolved 09/10: Remains on BiPAP, some interval worsening of respiratory status. Patient is more tachypneic chest x-ray shows left lower lobe infiltrate .Currently sedated with 0.5 g per KG per hour of Precedex. I will discontinue Precedex. MRI brain shows acute infarct left sylvian region. Creatinine slightly worse at 3. Low-grade fever Tmax 100.2, send blood and sputum culture and start Zosyn 09/11: Patient was intubated yesterday for progressively worsening respiratory failure, hypoxemia and altered mentation. On ventilator support patient's oxygenation has improved. He moves all extremities do not following commands. Chest x-ray shows no definite infiltrates 09/12: Extubated yesterday tolerating well oxygenation varghese and protecting airway. No fevers. Urine output 3.8 L in 24 hours with creatinine worsening from 3.9 to 4.5 today. Remains aphasic not following commands 09/13: Somnolent, received Ativan for agitation overnight. Urine output 4 L in 24 hours. Labs are pending at this time. Opens eyes to verbal stimulation, remains aphasic and did not follow commands 09/14 Patient appears somnolent. On no sedation. Renal function worse today with Cr: 7.31 from 5.40 and UO: 715ml in 24hrs. T:100.9 this morning. Remains aphasic. 09/15 Patient was placed on Amio drip overnight for Afib with RVR. HD initiated yesterday with removal 2L. He is currently receiving another HD treatment. Tmax 100.9. Patient remains encephalopathic and does not follow commands. TF was held due to high residuals. 09/16 Patient was intubated yesterday for airway protection. On Fentanyl drip for sedation on Neosyn. Tmax 104. C-diff PCR positive. CT abd/pelvis showed no acute process, gaseous distention. 09/17 Patient remains intubated and sedated with Fentanyl. On Neosyn 75 mics. T: 101.8 at 4 am. 09/18 Patient remains sedated and intubated. T:101.1 last night. On Neosyn 60 mics. 09/19 No acute events overnight. Off Neosyn and is on Fentanyl infusion for sedation. T:100.5. Tolerated CPAP x 4 hrs yesterday. Patient was able to open up his eyes off sedation. 09/20 Patient remains sedated with Fentanyl and intubated. T:99.8 last night. WBC trending down. Off Neosyn. For J-tube placement by IR today. 09/21 Patient remains sedated and intubated. T:100.0 last night. s/p HD yesterday with removal 3.5L. 09/22-continues to have low-grade fever. On sedation hold open size moves all extremities do not follow commands. White count stable at 17.8 09/23/16: T 100.3, white count slightly improved 16.9. Neuro exam remains unchanged family has not decided about trach yet wants to wait a few more days 09/24 No acute events overnight. T;100.4 last night. On Fentanyl infusion for sedation. TF held for high residuals. For HD today. 09/25: no significant clinical change. still with low grade temps. mental status still poor. wbc persistently elevated. 09/26: continues with fevers. wbc uptrended overnight. no changes in severe encephalopathy. 09/27: fevers defervesced overnight. continues to be encephalopathic. I had a long conversation with his daughter today and they are considering possible extubation and transition to palliation vs. tracheostomy. 09/28: no clinical change. failed SBT for tachypnea and RSBI > 105. per family discussions, will plan on medical extubation when he passes SBT in near future, with the understanding that when he is extubated, his code status will change to DNR/DNI and if he fails extubation, we will make him comfortable and pursue palliation. 09/29: No acute events overnight MAXIMUM TEMPERATURE is 100.2. WBC count has improved to 14.2 from 17.1 unable to follow commands. Attempt C Pap again today. failed SBT yesterday 09/30: Less responsive today. No spontaneous eye opening, still not following commands. Unable to extubate due to poor mentation Subjective 10/01: Resting in bed. Tmax 100.2. Tolerating tube feeding. Positive BM.. Today following commands on ventilator. Objective Vital Signs Date Time Temp Pulse Resp B/P Pulse Ox O2 Delivery O2 Flow Rate FiO2 10/01/16 08:13 35 10/01/16 08:10 100 10/01/16 08:00 100.8 118 18 124/71 Intake and Output 09/30/16 09/30/16 10/01/16 08:00 16:00 00:00 Intake Total 175 ml 110 ml 72 ml Output Total 370.0 ml 510.0 ml 215 ml Balance -195.0 ml -400.0 ml -143 ml Result Diagram: 10/01/16 0130 10/01/16 0130 Imaging Last Impressions Chest X-Ray 09/27/16 0000 Signed Impressions: Service Date/Time: Tuesday, September 27, 2016 09:24 - CONCLUSION: 1. Tubes and lines in good position. 2. Mild suspected atelectasis or consolidation at the medial left base. Michael Garcia MD Liver Ultrasound 09/17/16 1030 Signed Impressions: Service Date/Time: Saturday, September 17, 2016 11:01 - CONCLUSION: 1. Minimally complex cyst right mid kidney. 2. Liver mildly enlarged. Cesar Mcfadden MD Abdomen X-Ray 09/17/16 0600 Signed Impressions: Service Date/Time: Saturday, September 17, 2016 05:05 - CONCLUSION: Nonspecific abdomen appearance. Michael Ross MD Head CT 09/15/16 0000 Signed Impressions: Service Date/Time: Thursday, September 15, 2016 10:15 - CONCLUSION: 1. Sizable area of decreased attenuation in the left MCA distribution most consistent with subacute cortical infarct. This there is stable compared to previous MR dated 09/09/16. Sanket Gonzalez MD Central Venous Line 09/15/16 0000 Signed Impressions: Service Date/Time: Thursday, September 15, 2016 00:00 - CONCLUSION: Uncomplicated line placement as above. Wesley Chaudhari MD Abdomen/Pelvis CT 09/15/16 0000 Signed Impressions: Service Date/Time: Thursday, September 15, 2016 17:00 - CONCLUSION: 1. Gaseous distension of the stomach. 2. I do not see evidence for significant colitis. Lowell Gonzalez MD FACR Catheter Placement X-Ray 09/14/16 0000 Signed Impressions: Service Date/Time: Wednesday, September 14, 2016 00:00 - CONCLUSION: Uncomplicated line placement as above. Wesley Chaudhari MD Carotid Artery Ultrasound 09/13/16 0000 Signed Impressions: Service Date/Time: Tuesday, September 13, 2016 16:46 - CONCLUSION: Significant plaque remains evident in the carotid bifurcations. Poor visualization and difficulty velocity sampling of the proximal internal carotid arteries was again encountered. Significant carotid stenosis cannot be excluded. Nonvisualization of the vertebral arteries. Mack Brizuela MD Brain MRI 09/09/16 0000 Signed Impressions: Service Date/Time: August 16:36 - CONCLUSION: 1. Findings demonstrate an acute infarction in the left sylvian region, nonhemorrhagic. 2. Small air-fluid level right maxillary sinus and mild bilateral ethmoid sinus disease. Suresh Diaz MD Renal Ultrasound 09/08/16 0000 Signed Impressions: Service Date/Time: Thursday, September 08, 2016 16:04 - CONCLUSION: Large 6.3 cm cyst lower pole laterally left kidney. No evidence of hydronephrosis or obstructive uropathy.. Christian Cooper MD Objective Remarks GENERAL: 66-year-old Critically ill elderly male, intubated, currently resting in bed in no acute distress HEENT: Atraumatic normocephalic. Pupils are round and reactive about 3 Thomason' s bilaterally and reactive. Mucous membranes moist. NECK: Trachea midline. No JVD CARDIOVASCULAR: Regular rate and rhythm., S1, S2 no S4 without murmur. RESPIRATORY: Breath sounds equal bilaterally. No accessory muscle use. GASTROINTESTINAL: Abdomen soft, non-tender, nondistended. MUSCULOSKELETAL: No new significant peripheral edema. NEURO: Positive eye opening today, occasionally follows commands upper extremity. Moves extremities spontaneously A/P Problem List: (1) Acute ischemic left MCA stroke ICD Code: I63.512 Status: Acute (2) Acute renal failure ICD Code: N17.9 Status: Acute (3) CHF (congestive heart failure), NYHA class III ICD Code: I50.9 Status: Acute (4) Coronary artery disease involving [place] heart ICD Code: I25.10 Status: Chronic (5) HTN (hypertension) ICD Code: I10 Status: Acute (6) CKD (chronic kidney disease) ICD Code: N18.9 Status: Acute Assessment and Plan Neuro/Psych: Acute left MCA stroke Aphasia with right hemiparesis Acute toxic Metabolic encephalopathy -Off all sedation for 48 hours, mental status does not improving -MRI brain 09/09/16-acute left sylvian region infarct. CT brain 09/07: No acute disease. -Repeat CT brain 09/15: Sizable area of decreased attenuation in the left MCA distribution most consistent with subacute cortical infarct -Continue aspirin and Plavix. Neuro was following- Cr. Nguyen. -09/13 EEG: within normal. Pulm: Acute respiratory failure Obstructive sleep apnea -Continue with vent support keep sat >90% -Bronchodilators every 6 hours and as needed - ICU vent bundle, CPAP trials daily. Mental status will not permit extubation at this time -on PS 15/5, working on weaning support. -Re intubated on 09/15/16 -Palliative care following -Patient cannot be extubated as he will not be able to protect airway CV: NSTEMI Known CAD HTN Hyperlipidemia -Monitor HR and BP keep MAP>65mmHg -Continue with ASA, Plavix. Imdur and Lopressor on hold due to hypotension -Lipitor held for elevated LFT's -s/p cardiac cath 09/07 showed multivessel disease with 2/6 grafts patent, EF 40% . s/p PCI with stents of the saphenous venous graft to the first diagonal artery. -s/p removal Impella 09/08. Cardiology- Dr. Cummins : Acute on chronic kidney disease -Monitor renal function, I/O's, avoid nephrotoxins. -HD initiated 09/14 , renal-Dr. Naidu. . Monitor CK's ( trending down). Most likely he'll be dialysis dependent GI: Hyperkalemia-resolved -On Protonix 40mg twice a day -GI is following -Monitor LFT's ( trending down), Hepatitis profile negative on 09/14 -US Liver: Minimally complex cyst right mid kidney. Liver mildly enlarged. -Continue with TF- Nepro advance to goal rate of 50 cc an hour ID: UTI with enterococcus HCAP Leukocytosis C-diff colitis Sputum cx: 09/17 Pseudomonas -Continue abx per ID ( PO Vanco, Tobra nebs). Monitor for signs of infections ( Fever, WBC) -f/u BC x 2 sets 09/21: NGTD -CT abd/pelvis: Gaseous distention, no acute process -KUB abdomen 09/17- non specific bowel gas pattern Heme: Leukocytosis Anemia -Monitor CBC a follow trends. No indications for transfusion of blood proximal at this time. Endo: DM -SSI( Medium) every 4 hours with accuchecks for glycemic control, Levemir 5u Q12 GI prophylaxis - on Protonix 40mg Q12 DVT prophylaxis - SCD, Heparin 5000 units sq very 12 Palliative care is following. Family considering possible withdrawal of care Lines: Right Vascth placed 09/14, Right IJ CVP placed 09/15. Critical Care: The total critical care time was 35 minutes. Time to perform other separately billable procedures was not included in the critical care time. Problem Qualifiers (1) Acute renal failure: Qualified Code: N17.0 - Acute renal failure with tubular necrosis Justyn Hand MD Oct 01, 2016 11:50
[2016-10-01] MEDS: SODIUM CHLOR 0.9% 1000 ML INJ 1,000 ML IV PRN (12:24)
[2016-10-01] MEDS: ALBUMIN HUMAN 25% 25 GM/100 ML BAGP IV PRN ×2 (12:25→12:26)
[2016-10-01] MEDS: HEPARIN SODIUM - IV 10,000 UNITS/10 ML VIAL PRN (12:25)
[2016-10-01] MEDS: GENTAMICIN SULFATE (DIALYSIS USE ONLY) 20 MG/2 ML VIAL IV PRN (12:25)
--- NOTE | 2016-10-01 12:59 | HHI.NPPN ---
Subjective History of Present Illness 66-year-old male with history of coronary artery disease status post CABG, osteoarthritis, diabetes, hyperlipidemia who was admitted there with unstable angina and underwent heart catheterization found to have significant blockages requiring stent and impella device, he has acute renal failure. Additional Remarks Patient on Vent Objective Data Data 09/30/16 10/01/16 19:00 07:00 Intake Total 110 ml 137 ml Output Total 510.0 ml 685.0 ml Balance -400.0 ml -548.0 ml Tube Feeding 80 ml 77 ml Other 30 ml 60 ml Output Urine Total 10 ml 25 ml Stool Total 300 ml 450 ml Tube Feeding Residual Discard 200.0 ml 210.0 ml Vital Signs Date Time Temp Pulse Resp B/P Pulse Ox O2 Delivery O2 Flow Rate FiO2 10/01/16 10:00 118 10/01/16 08:13 35 10/01/16 08:10 100 35 10/01/16 08:04 99 35 10/01/16 08:00 118 10/01/16 08:00 100.8 118 18 124/71 97 10/01/16 08:00 35 10/01/16 06:00 117 10/01/16 04:00 99.5 109 18 113/66 100 10/01/16 04:00 35 10/01/16 04:00 109 10/01/16 03:15 100 35 10/01/16 02:00 108 10/01/16 00:00 98.4 112 22 119/78 98 10/01/16 00:00 112 10/01/16 00:00 35 09/30/16 22:00 109 09/30/16 21:50 100 35 09/30/16 20:00 98.8 119 20 125/75 99 09/30/16 20:00 35 09/30/16 20:00 119 09/30/16 18:00 116 09/30/16 16:00 100.6 119 22 141/79 97 09/30/16 16:00 35 09/30/16 16:00 119 09/30/16 14:00 117 -: 10/01/16 0130 10/01/16 0130 Physical Exam General Appearance: Well Developed, Well Nourished Pulmonary Resp Exam: Crackles, Rhonchi, Decreased Bases, Diminished Breath Sounds Cardiology CV Exam: Regular, Normal Sinus Rhythm Gastrointestinal/Abdomen GI Exam: Soft, Non-Tender, Bowel Sounds Present, Distended Extremeties Extremities Exam: Moderate Edema, Pitting Edema, Dependent Edema Neurologic Neuro Exam: Sedated Assessment/Plan Problem List: (1) Acute renal failure Plan: Remains intubated Oliguric renal failure on hemodialysis M,W,F [facility] plan still not clear HD proceedings noted UF .5-3 l Today has Pneumonia Tobramycin inhalation Pseudomonas Febrile earlier today, continue to monitor may need to change Vascath/lines (2) Hyperkalemia Plan: Resolved (3) Chronic kidney disease Plan: He has stage III chronic kidney disease due to diabetic (4) CHF (congestive heart failure), NYHA class III Plan: Continue to monitor for improvement (5) Coronary artery disease involving [place] heart Plan: had bypass and stents (6) Hypertension, essential, benign Plan: Monitor blood pressure (7) Diabetes mellitus, type II Plan: Monitor blood glucose (8) UTI (lower urinary tract infection) (9) CVA (cerebral vascular accident) Plan: remain unresponsive moves left side more Rt Hemiparesis, CT scan # 2 showed stroke in left cerebral area (10) Need for prophylactic vaccination and inoculation against influenza (11) Clostridium difficile infection Plan: on PO Vanco Problem Qualifiers (1) Acute renal failure: Qualified Code: N17.0 - Acute renal failure with tubular necrosis (2) Chronic kidney disease: Qualified Code: N18.4 - Chronic kidney disease, stage 4 (severe) (3) Diabetes mellitus, type II: Qualified Code: E11.22 - Type 2 diabetes mellitus with diabetic chronic kidney disease, unspecified CKD stage, unspecified penitentiary insulin use status (4) CVA (cerebral vascular accident): Marisol Naidu MD Oct 01, 2016 12:59
--- NOTE | 2016-10-01 13:30 | HHI.HCPN ---
Reason for visit a. To assist with evaluation and management of symptoms including: shortness of breath and debility. b. To assist medical decision maker(s) with: better understanding of current medical conditions; weighing benefits/burdens of medical treatment options; making medical treatment decisions. . (Simran Sorto) Subjective/Interval History Patient seen in ICU. He remains in critical condition -intubated, sedated on mechanical ventilation. Not opening eyes to tactile or verbal stimuli. nonpurposeful movement noted to all 4 extremities. Not following any commands for me. Currently undergoing hemodialysis. Remain experiencing low-grade temperature, Max temp 100.8. Tachycardic with heart rate in the high 120s. Stable BP. Has been tolerating CPAP trials but failed spontaneous breathing trial yesterday. Laboratory today to include 13.8, Hgb 9.0, platelet count 236. Sodium 137, potassium 4, BUN/creatinine 93/11.83. No new imaging. . Family/friend interactions Spoke with patient's chance Dubose and Vaibhav. Family meeting set up for this afternoon at 4 PM. Palliative care to follow-up. 16:40. Family meeting, in attendance chance Patricia, Vaibhav's , Dr. Hand and palliative care. Medical update provided. 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 He is at a very high risk for further decline, complications and . Reviewed that patient's inability to medically extubate at this time. Discussed current options at that time to include continuation of aggressive care to include tracheostomy and PEG tube versus comfort directed care/ withdrawal of life support. This has been discussed with daughter Yani over the phone. Family agreeing not to change central line today while family continue evaluating treatment options/goals of care, family was asked to clarify goals of care by Tuesday10/04/16. . (Simran Sorto) Advance Directives Living Will: Never completed Health Care Surrogate: Never completed Durable Power of Front End Developer Designer: Never completed (Simran Sorto) Advance Directive Specifics Health Care Surrogate(s): Max Dubose not sure if patient has completed advance directives. As per [place] statute, healthcare decision-making falls to patient's 3 children. . Documented care wishes: No advance directives or living will completed. . Significant change in goals: No code. Continue attempts at medical extubation. (Simran Sorto) Objective Vital Signs Date Time Temp Pulse Resp B/P Pulse Ox O2 Delivery O2 Flow Rate FiO2 10/01/16 12:00 35 10/01/16 10:00 118 10/01/16 08:13 35 10/01/16 08:12 35 10/01/16 08:10 100 35 10/01/16 08:04 99 35 10/01/16 08:00 118 10/01/16 08:00 100.8 118 18 124/71 97 10/01/16 08:00 35 10/01/16 06:00 117 10/01/16 04:00 99.5 109 18 113/66 100 10/01/16 04:00 35 10/01/16 04:00 109 10/01/16 03:15 100 35 10/01/16 02:00 108 10/01/16 00:00 98.4 112 22 119/78 98 10/01/16 00:00 112 10/01/16 00:00 35 09/30/16 22:00 109 09/30/16 21:50 100 35 09/30/16 20:00 98.8 119 20 125/75 99 09/30/16 20:00 35 09/30/16 20:00 119 09/30/16 18:00 116 09/30/16 16:00 100.6 119 22 141/79 97 09/30/16 16:00 35 09/30/16 16:00 119 09/30/16 14:00 117 Intake & Output 10/01/16 10/01/16 07:00 19:00 Intake Total 137 ml Output Total 685.0 ml Balance -548.0 ml Tube Feeding 77 ml Other 60 ml Output Urine Total 25 ml Stool Total 450 ml Tube Feeding Residual Discard 210.0 ml Physical Exam CONSTITUTIONAL/GENERAL: This is an adequately nourished patient in no acute distress. Sedated, intubated on mechanical ventilation. TUBES/LINES/DRAINS: PIV's, SCDs, Guillen catheter, right IJ dialysis catheter. ETT , OG tube. Rectal tube with moderate amount of watery stool. SKIN: No jaundice, rashes, or lesions. No wounds seen anteriorly. Not diaphoretic. HEAD: Atraumatic. Normocephalic. ENT: Unable to evaluate hearing secondary to clinical condition. Nose without bleeding or purulent drainage. ETT in place. Moderate amount of oral secretions noted. CARDIOVASCULAR: Tachycardic with heart rate in the 120s. Irregular rate and rhythm. RESPIRATORY/CHEST: Symmetric, unlabored. coarse breath sounds anteriorly. Intubated on mechanical ventilation. GASTROINTESTINAL: Abdomen soft, large, round. Bowel sounds hypoactive. Tube feeding will help. GENITOURINARY: Without palpable bladder distension. Guillen catheter in place. MUSCULOSKELETAL: Extremities without clubbing, cyanosis. NEUROLOGICAL: Unresponsive to tactile or verbal stimuli. Not following any commands. Involuntary movement to 4 extremities noted. PSYCHIATRIC: Unable to assess secondary to clinical condition. Appears calm. . (Simran Sorto) Diagnostic Tests Laboratory Laboratory Tests Test 09/29/16 09/29/16 09/30/16 10/01/16 04:25 09:58 04:00 01:30 White Blood Count 14.2 TH/MM3 13.7 TH/MM3 13.8 TH/MM3 (4.0-11.0) (4.0-11.0) (4.0-11.0) Red Blood Count 2.99 MIL/MM3 3.03 MIL/MM3 3.11 MIL/MM3 (4.50-5.90) (4.50-5.90) (4.50-5.90) Hemoglobin 8.9 GM/DL 8.9 GM/DL 9.0 GM/DL (13.0-17.0) (13.0-17.0) (13.0-17.0) Hematocrit 26.9 % 27.0 % 28.0 % (39.0-51.0) (39.0-51.0) (39.0-51.0) Mean Corpuscular Volume 90.0 FL 89.1 FL 90.1 FL (80.0-100.0) (80.0-100.0) (80.0-100.0) Mean Corpuscular Hemoglobin 29.6 PG 29.5 PG 28.9 PG (27.0-34.0) (27.0-34.0) (27.0-34.0) Mean Corpuscular Hemoglobin 32.9 % 33.1 % 32.1 % Concent (32.0-36.0) (32.0-36.0) (32.0-36.0) Red Cell Distribution Width 15.2 % 14.8 % 14.8 % (11.6-17.2) (11.6-17.2) (11.6-17.2) Platelet Count 242 TH/MM3 257 TH/MM3 236 TH/MM3 (150-450) (150-450) (150-450) Mean Platelet Volume 8.5 FL 8.8 FL 8.8 FL (7.0-11.0) (7.0-11.0) (7.0-11.0) Sodium Level 137 MEQ/L 137 MEQ/L 137 MEQ/L (136-145) (136-145) (136-145) Potassium Level 3.8 MEQ/L 3.8 MEQ/L 4.0 MEQ/L (3.5-5.1) (3.5-5.1) (3.5-5.1) Chloride Level 94 MEQ/L 93 MEQ/L 91 MEQ/L (98-107) (98-107) (98-107) Carbon Dioxide Level 22.0 MEQ/L 25.4 MEQ/L 24.4 MEQ/L (21.0-32.0) (21.0-32.0) (21.0-32.0) Anion Gap 21 MEQ/L (5-15) 19 MEQ/L (5-15) 22 MEQ/L (5-15) Blood Urea Nitrogen 102 MG/DL 76 MG/DL (7-18) 93 MG/DL (7-18) (7-18) Creatinine 11.84 MG/DL 9.25 MG/DL 11.83 MG/DL (0.60-1.30) (0.60-1.30) (0.60-1.30) Estimat Glomerular Filtration 4 ML/MIN (>89) 6 ML/MIN (>89) 4 ML/MIN (>89) Rate Random Glucose 206 MG/DL 250 MG/DL 207 MG/DL (74-106) (74-106) (74-106) Calcium Level 8.7 MG/DL 9.2 MG/DL 9.5 MG/DL (8.5-10.1) (8.5-10.1) (8.5-10.1) Blood Gas Puncture Site LT BRACHIAL Blood Gas Patient Temperature 98.6 Blood Gas HCO3 19 mmol/L (22-26) Blood Gas Base Excess -5.0 mmol/L (-2-2) Blood Gas Oxygen Saturation 96 % (90-100) Arterial Blood pH 7.40 (7.380-7.420) Arterial Blood Partial 31 mmHg (38-42) Pressure CO2 Arterial Blood Partial 138 mmHg Pressure O2 (61-120) Arterial Blood Oxygen Content 13.5 Vol % (12.0-20.0) Arterial Blood 1.3 % (0-4) Carboxyhemoglobin Arterial Blood Methemoglobin 1.1 % (0-2) Blood Gas Hemoglobin 9.7 G/DL (12.0-16.0) Oxygen Delivery Device VENTILATOR Blood Gas Ventilator Setting CPAP/8/5 Blood Gas Inspired Oxygen 35 % (Simran Sorto) Result Diagram: 10/01/16 0130 10/01/16 0130 Procedures * 09/15/06 -intubation * 09/14/16 -dialysis catheter placement . * 09/11/16 -extubation. * 09/10/16 -intubation. * 09/07/16 -cardiac catheter with angioplasty and stent placement. . (Simran Sorto) Assessment and Plan Disease Oriented Problem List: (1) Acute tubular necrosis (2) Acute ischemic left MCA stroke (3) CAD (coronary artery disease) of bypass graft (4) CHF (congestive heart failure), NYHA class II (5) Liver function failure Symptom Scale: (1) Shortness of breath 0-10 Scale: Unable to quantify Comment: Reintubated 09/15/06. On mechanical ventilation. (2) Debility 0-10 Scale: Unable to quantify Comment: Secondary to CVA, acute complications, hospitalization. Pertinent Non-Medical Issues Psychosocial: . Has 2 children. Living independently prior to this hospitalization. Spiritual: [employer]. Legal: Unknown if advance directives have been completed. Ethical issues impacting care: Unknown if advance directives have been completed. . Important Contacts Max Birmingham [phone]. Son Vaibhav . Daughter Yani. . Prognosis Mr. Ferguson is a 66 y/o male with an adhesive significant cardiac history to include stenting in 2010, CAD status post 6 vessel CABG in 2011, and angioplasty and stenting in September 06. He was found to have significant blockage requiring angioplasty and stenting. 2 of 6 grafts are currently patent. Post cardiac catheter, patient developed aphasia and right sided hemiparesis. MRI of the brain showing acute nonhemorrhagic infarct. Patient was intubated and subsequently extubated secondary to respiratory failure and altered mental status. Neuro condition remains the same, he is obtunded and not following any commands. Patient with history of CKD now with acute tubular necrosis requiring renal replacement therapy. His prognosis is poor for a meaningful neurological recovery even if he is to survive this hospitalization given his age, severity of cardiac disease, complications to include stroke, and multiple comorbidities. He is at a very high risk for further decline, complications and . . Code Status: Alternative Code Plan * CODE STATUS: ALT code/intubation only. Family electing DNR/DNI post med extubation. * MEDICAL DECISION-MAKING: Patient incapacitated to make healthcare decisions secondary to clinical condition, unclear if he will regain. Son Sedrick not sure if patient has completed advance directives. As per [place] statute, healthcare decision-making falls to patient's 3 children. * GOALS OF CARE: All 3 children: Sedrick Esposito and Yani electing to attempt at medical extubation in the incoming days when patient passes SBT -NO trach, NO reintubation in the event that patient is unable to maintain his airway or acute respiratory distress. After medical extubation, family electing for DNR/ DNI. Family meeting held on 10/01/16, in attendance sons Sedrick and Vaibhav, Vaibhav' s , Dr. Hand and palliative care. Medical update provided. 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 Reviewed likely illness trajectory to include prolonged inpatient hospitalization/acute rehab and complications given his condition. Patient at a very high risk for further decline, complications and . Reviewed patient's inability to medically extubate at this time secondary to failing SBT and neuro status. Discussed continuation of aggressive care to include tracheostomy and PEG tube versus comfort directed care/withdrawal of life support. This has been discussed with daughter Yani over the phone. Family agreeing not to change central line today while family continue evaluating treatment options/goals of care, family was asked to clarify goals of care by Tuesday10/04/16. Palliative care to f/u. * Case discussed with Dr. Hand and bedside RN. * SYMPTOMS: == Shortness of breath, patient recently intubated and extubated. Worsening clinical condition. Reintubated 09/15/16, remains on mechanical ventilation. == Debility, secondary to CVA, acute events and hospitalization. = = Anxiety, patient appears calm. * Palliative care contact information has been provided to patient's family. * Palliative care will continue to follow-up to assist with symptom management and to further evaluate goals of care as the clinical course evolves. . (Simran Sorto) Time Spent Total Floor Time (mins): 46 (Total time to include review medical records, physical exam, family meeting case discussion with Dr. Hand and Dr. Hidalgo.) >50% Counseling/Coord of Care: Yes (Simran Sorto) Attestation To help prompt me to consider important information that might be impacting today's encounter and assessment, information from prior notes written by myself or my colleagues may have been "brought forward" into today's note. My signature on this note, however, is an attestation that I personally performed the exam, history, and/or decision-making noted today, and, unless otherwise indicated, the interactions with patient, family, and staff as well as the review of records all occurred today. I also attest that the listed assessment and stated plan reflect my best clinical judgment today based on the combination of historical information, prior notes, and today's exam/ interactions. When time spent is documented, it refers only to time spent today by the signer, or if indicated, combined time spent today by collaborating physician/nurse practitioner. (Simran Sorto) Collaborating MD Comments Chart reviewed. Cased discussed with palliative care EGG TESTER. Above EGG TESTER note reviewed and I concur. . (Geovanny Hidalgo MD) Simran Sorto Oct 01, 2016 13:30 Geovanny Hidalgo MD December 13, 2016 13:34
[2016-10-01] MEDS ORDERED: DILTIAZEM INJ 125 MG in SODIUM CHLORIDE 0.9% INJ 100 ML IV SCH (21:00)
[2016-10-01] MEDS: PHENYLEPHRINE INJ 40 MG in DEXTROSE 5% IN WATE 500 ML INJ 496 ML IV SCH ×2 (21:09)
[2016-10-01] MEDS ORDERED: METOPROLOL TARTRATE 5 MG/5 ML VIAL ONE (22:35)
[2016-10-01] MEDS ORDERED: AMIODARONE HCL 150 MG/3 ML VIAL ONE (22:40)
[2016-10-01] MEDS ORDERED: METOPROLOL TARTRATE 5 MG/5 ML VIAL IV PUSH ONE (22:45)
--- NOTE | 2016-10-13 12:49 | HHI.DS ---
Summary Note Date of : Oct 01, 2016 Time Of : 225 Admission Date Sep 07, 2016 at 20:10 Admitting Diagnosis Diagnosis at Time of : (1) Acute ischemic left MCA stroke ICD Code: I63.512 Diagnosis: Principal (2) CHF (congestive heart failure), NYHA class II ICD Code: I50.9 Diagnosis: Principal (3) Acute renal failure ICD Code: N17.9 Diagnosis: Principal (4) Nutrition, metabolism, and development symptoms ICD Code: R63.8 Diagnosis: Principal (5) Debility ICD Code: R53.81 (6) Fatigue ICD Code: R53.83 Diagnosis: Principal Procedures Intubation 09/10 Placement of left IJ CVL and hemodialysis catheter by IR Brief History Remarks/Hospital Course 66-year-old gentleman with a history of coronary artery disease status post CABG underwent emergent cardiac catheterization by Dr. Cummins. Postprocedure his course is complicated by aphasia and right-sided weakness. 09/08 Patient was on BIPAP 14/7 with FIO2 25%. On Precedex and heparin drips. CT brain showed last night showed no acute process. Impela was removed this morning by Dr. Cummins. T:99.9 Renal function improving with Cr:2.5 from 3.0 hyperkalemic with K 6.1 09/09: Overnight remained on BiPAP predominantly for sleep apnea. Intermittently follows commands. Will check MRI of the brain today. Creatinine slightly worsened to 2.8. Consulted nephrology, hyperkalemia resolved 09/10: Remains on BiPAP, some interval worsening of respiratory status. Patient is more tachypneic chest x-ray shows left lower lobe infiltrate .Currently sedated with 0.5 g per KG per hour of Precedex. I will discontinue Precedex. MRI brain shows acute infarct left sylvian region. Creatinine slightly worse at 3. Low-grade fever Tmax 100.2, send blood and sputum culture and start Zosyn 09/11: Patient was intubated yesterday for progressively worsening respiratory failure, hypoxemia and altered mentation. On ventilator support patient's oxygenation has improved. He moves all extremities do not following commands. Chest x-ray shows no definite infiltrates 09/12: Extubated yesterday tolerating well oxygenation varghese and protecting airway. No fevers. Urine output 3.8 L in 24 hours with creatinine worsening from 3.9 to 4.5 today. Remains aphasic not following commands 09/13: Somnolent, received Ativan for agitation overnight. Urine output 4 L in 24 hours. Labs are pending at this time. Opens eyes to verbal stimulation, remains aphasic and did not follow commands 09/14 Patient appears somnolent. On no sedation. Renal function worse today with Cr: 7.31 from 5.40 and UO: 715ml in 24hrs. T:100.9 this morning. Remains aphasic. 09/15 Patient was placed on Amio drip overnight for Afib with RVR. HD initiated yesterday with removal 2L. He is currently receiving another HD treatment. Tmax 100.9. Patient remains encephalopathic and does not follow commands. TF was held due to high residuals. 09/16 Patient was intubated yesterday for airway protection. On Fentanyl drip for sedation on Neosyn. Tmax 104. C-diff PCR positive. CT abd/pelvis showed no acute process, gaseous distention. 09/17 Patient remains intubated and sedated with Fentanyl. On Neosyn 75 mics. T: 101.8 at 4 am. 09/18 Patient remains sedated and intubated. T:101.1 last night. On Neosyn 60 mics. 09/19 No acute events overnight. Off Neosyn and is on Fentanyl infusion for sedation. T:100.5. Tolerated CPAP x 4 hrs yesterday. Patient was able to open up his eyes off sedation. 09/20 Patient remains sedated with Fentanyl and intubated. T:99.8 last night. WBC trending down. Off Neosyn. For J-tube placement by IR today. 09/21 Patient remains sedated and intubated. T:100.0 last night. s/p HD yesterday with removal 3.5L. 09/22-continues to have low-grade fever. On sedation hold open size moves all extremities do not follow commands. White count stable at 17.8 09/23/16: T 100.3, white count slightly improved 16.9. Neuro exam remains unchanged family has not decided about trach yet wants to wait a few more days 09/24 No acute events overnight. T;100.4 last night. On Fentanyl infusion for sedation. TF held for high residuals. For HD today. 09/25: no significant clinical change. still with low grade temps. mental status still poor. wbc persistently elevated. 09/26: continues with fevers. wbc uptrended overnight. no changes in severe encephalopathy. 09/27: fevers defervesced overnight. continues to be encephalopathic. I had a long conversation with his daughter today and they are considering possible extubation and transition to palliation vs. tracheostomy. 09/28: no clinical change. failed SBT for tachypnea and RSBI > 105. per family discussions, will plan on medical extubation when he passes SBT in near future, with the understanding that when he is extubated, his code status will change to DNR/DNI and if he fails extubation, we will make him comfortable and pursue palliation. 09/29: No acute events overnight MAXIMUM TEMPERATURE is 100.2. WBC count has improved to 14.2 from 17.1 unable to follow commands. Attempt C Pap again today. failed SBT yesterday 09/30: Less responsive today. No spontaneous eye opening, still not following commands. Unable to extubate due to poor mentation Subjective 10/01: Resting in bed. Tmax 100.2. Tolerating tube feeding. Positive BM.. Today following commands on ventilator. Significant Findings Palliative care note Imaging Last Impressions Chest X-Ray 09/27/16 0000 Signed Impressions: Service Date/Time: Tuesday, September 27, 2016 09:24 - CONCLUSION: 1. Tubes and lines in good position. 2. Mild suspected atelectasis or consolidation at the medial left base. Michael Garcia MD Liver Ultrasound 09/17/16 1030 Signed Impressions: Service Date/Time: Saturday, September 17, 2016 11:01 - CONCLUSION: 1. Minimally complex cyst right mid kidney. 2. Liver mildly enlarged. Cesar Mcfadden MD Abdomen X-Ray 09/17/16 0600 Signed Impressions: Service Date/Time: Saturday, September 17, 2016 05:05 - CONCLUSION: Nonspecific abdomen appearance. Michael Ross MD Head CT 09/15/16 0000 Signed Impressions: Service Date/Time: Thursday, September 15, 2016 10:15 - CONCLUSION: 1. Sizable area of decreased attenuation in the left MCA distribution most consistent with subacute cortical infarct. This there is stable compared to previous MR dated 09/09/16. Sanket Gonzalez MD Central Venous Line 09/15/16 0000 Signed Impressions: Service Date/Time: Thursday, September 15, 2016 00:00 - CONCLUSION: Uncomplicated line placement as above. Wesley Chaudhari MD Abdomen/Pelvis CT 09/15/16 0000 Signed Impressions: Service Date/Time: Thursday, September 15, 2016 17:00 - CONCLUSION: 1. Gaseous distension of the stomach. 2. I do not see evidence for significant colitis. Lowell Gonzalez MD FACR Catheter Placement X-Ray 09/14/16 0000 Signed Impressions: Service Date/Time: Wednesday, September 14, 2016 00:00 - CONCLUSION: Uncomplicated line placement as above. Wesley Chaudhari MD Carotid Artery Ultrasound 09/13/16 0000 Signed Impressions: Service Date/Time: Tuesday, September 13, 2016 16:46 - CONCLUSION: Significant plaque remains evident in the carotid bifurcations. Poor visualization and difficulty velocity sampling of the proximal internal carotid arteries was again encountered. Significant carotid stenosis cannot be excluded. Nonvisualization of the vertebral arteries. Makc Brizuela MD Brain MRI 09/09/16 0000 Signed Impressions: Service Date/Time: August 16:36 - CONCLUSION: 1. Findings demonstrate an acute infarction in the left sylvian region, nonhemorrhagic. 2. Small air-fluid level right maxillary sinus and mild bilateral ethmoid sinus disease. Suresh Diaz MD Renal Ultrasound 09/08/16 0000 Signed Impressions: Service Date/Time: Thursday, September 08, 2016 16:04 - CONCLUSION: Large 6.3 cm cyst lower pole laterally left kidney. No evidence of hydronephrosis or obstructive uropathy.. Christian Cooper MD Hospital Course Neuro/Psych: Acute left MCA stroke Aphasia with right hemiparesis Acute toxic Metabolic encephalopathy -Off all sedation for 48 hours, mental status does not improving -MRI brain 09/09/16-acute left sylvian region infarct. CT brain 09/07: No acute disease. -Repeat CT brain 09/15: Sizable area of decreased attenuation in the left MCA distribution most consistent with subacute cortical infarct -Continue aspirin and Plavix. Neuro was following- Cr. Nguyen. -09/13 EEG: within normal. Pulm: Acute respiratory failure Obstructive sleep apnea -Continue with vent support keep sat >90% -Bronchodilators every 6 hours and as needed - ICU vent bundle, CPAP trials daily. Mental status will not permit extubation at this time -on PS 15/5, working on weaning support. -Re intubated on 09/15/16 -Palliative care following -Patient cannot be extubated as he will not be able to protect airway CV: NSTEMI Known CAD HTN Hyperlipidemia -Monitor HR and BP keep MAP>65mmHg -Continue with ASA, Plavix. Imdur and Lopressor on hold due to hypotension -Lipitor held for elevated LFT's -s/p cardiac cath 09/07 showed multivessel disease with 2/6 grafts patent, EF 40% . s/p PCI with stents of the saphenous venous graft to the first diagonal artery. -s/p removal Impella 09/08. Cardiology- Dr. Cummins : Acute on chronic kidney disease -Monitor renal function, I/O's, avoid nephrotoxins. -HD initiated 09/14 , renal-Dr. Naidu. . Monitor CK's ( trending down). Most likely he'll be dialysis dependent GI: Hyperkalemia-resolved -On Protonix 40mg twice a day -GI is following -Monitor LFT's ( trending down), Hepatitis profile negative on 09/14 -US Liver: Minimally complex cyst right mid kidney. Liver mildly enlarged. -Continue with TF- Nepro advance to goal rate of 50 cc an hour ID: UTI with enterococcus HCAP Leukocytosis C-diff colitis Sputum cx: 09/17 Pseudomonas -Continue abx per ID ( PO Vanco, Tobra nebs). Monitor for signs of infections ( Fever, WBC) -f/u BC x 2 sets 09/21: NGTD -CT abd/pelvis: Gaseous distention, no acute process -KUB abdomen 09/17- non specific bowel gas pattern Heme: Leukocytosis Anemia -Monitor CBC a follow trends. No indications for transfusion of blood proximal at this time. Endo: DM -SSI( Medium) every 4 hours with accuchecks for glycemic control, Levemir 5u Q12 GI prophylaxis - on Protonix 40mg Q12 DVT prophylaxis - SCD, Heparin 5000 units sq very 12 Palliative care is following. Family considering possible withdrawal of care Lines: Right Vascth placed 09/14, Right IJ CVP placed 09/15. Critical Care: The total critical care time was 35 minutes. Time to perform other separately billable procedures was not included in the critical care time. Justyn Hand MD Oct 13, 2016 12:49
== END 2016-10-01 22:59 | disposition expired | DRG 216 ==
LOC: HDOC 12:55 → HDIC 12:56 → HCVR 20:10 → HDOC 20:10 → HIMW 09-13 17:45
PROVIDERS: ADMIT Internal Medicine Interventional Cardiology; ATTEND Internal Medicine Interventional Cardiology
PROC: 4A023N7 Measurement of Cardiac Sampling and Pressure, Left Heart, Percutaneous Approach (ICD-10-PCS; 2016-09-07)
PROC: 027034Z Dilation of Coronary Artery, One Artery with Drug-eluting Intraluminal Device, Percutaneous Approach (ICD-10-PCS; 2016-09-07)
PROC: B2131ZZ Fluoroscopy of Multiple Coronary Artery Bypass Grafts using Low Osmolar Contrast (ICD-10-PCS; 2016-09-07)
PROC: B2151ZZ Fluoroscopy of Left Heart using Low Osmolar Contrast (ICD-10-PCS; 2016-09-07)
PROC: B2111ZZ Fluoroscopy of Multiple Coronary Arteries using Low Osmolar Contrast (ICD-10-PCS; 2016-09-07)
PROC: B2181ZZ Fluoroscopy of Left Internal Mammary Bypass Graft using Low Osmolar Contrast (ICD-10-PCS; 2016-09-07)
PROC: 5A09457 Assistance with Respiratory Ventilation, 24-96 Consecutive Hours, Continuous Positive Airway Pressure (ICD-10-PCS; 2016-09-07)
PROC: 5A0221D Assistance with Cardiac Output using Impeller Pump, Continuous (ICD-10-PCS; principal; 2016-09-07 16:15)
PROC: 02PA3RZ Removal of Short-term External Heart Assist System from Heart, Percutaneous Approach (ICD-10-PCS; 2016-09-08)
PROC: 0BH17EZ Insertion of Endotracheal Airway into Trachea, Via Natural or Artificial Opening (ICD-10-PCS; 2016-09-10)
PROC: 5A1945Z Respiratory Ventilation, 24-96 Consecutive Hours (ICD-10-PCS; 2016-09-10)
PROC: 5A1D60Z (ICD-10-PCS; 2016-09-14)
PROC: 02HV33Z Insertion of Infusion Device into Superior Vena Cava, Percutaneous Approach (ICD-10-PCS; 2016-09-14)
PROC: B543ZZA Ultrasonography of Right Jugular Veins, Guidance (ICD-10-PCS; 2016-09-14)
PROC: 5A1955Z Respiratory Ventilation, Greater than 96 Consecutive Hours (ICD-10-PCS; 2016-09-15)
PROC: 02HV33Z Insertion of Infusion Device into Superior Vena Cava, Percutaneous Approach (ICD-10-PCS; 2016-09-15)
PROC: B513ZZA Fluoroscopy of Right Jugular Veins, Guidance (ICD-10-PCS; 2016-09-15)
PROC: B543ZZA Ultrasonography of Right Jugular Veins, Guidance (ICD-10-PCS; 2016-09-15)
PROC: 0BH17EZ Insertion of Endotracheal Airway into Trachea, Via Natural or Artificial Opening (ICD-10-PCS; 2016-09-15)
DX: I21.4 Non-ST elevation (NSTEMI) myocardial infarction (principal); N17.0 Acute kidney failure with tubular necrosis; I63.512 Cerebral infarction due to unspecified occlusion or stenosis of left middle cerebral artery; J96.01 Acute respiratory failure with hypoxia; R65.21 Severe sepsis with septic shock; A41.9 Sepsis, unspecified organism; J69.0 Pneumonitis due to inhalation of food and vomit; G93.41 Metabolic encephalopathy; J15.212 Pneumonia due to Methicillin resistant Staphylococcus aureus; J15.1 Pneumonia due to Pseudomonas; I13.0 Hypertensive heart and chronic kidney disease with heart failure and stage 1 through stage 4 chronic kidney disease, or unspecified chronic kidney disease; I50.20 Unspecified systolic (congestive) heart failure; R47.01 Aphasia; G81.91 Hemiplegia, unspecified affecting right dominant side; N39.0 Urinary tract infection, site not specified; A04.7 Enterocolitis due to Clostridium difficile; N18.4 Chronic kidney disease, stage 4 (severe); G25.9 Extrapyramidal and movement disorder, unspecified; Z66 Do not resuscitate; I25.710 Atherosclerosis of autologous vein coronary artery bypass graft(s) with unstable angina pectoris; I25.110 Atherosclerotic heart disease of native coronary artery with unstable angina pectoris; E11.22 Type 2 diabetes mellitus with diabetic chronic kidney disease; I25.730 Atherosclerosis of nonautologous biological coronary artery bypass graft(s) with unstable angina pectoris; I25.5 Ischemic cardiomyopathy; R53.1 Weakness; G47.33 Obstructive sleep apnea (adult) (pediatric); E87.5 Hyperkalemia; M19.90 Unspecified osteoarthritis, unspecified site; B95.2 Enterococcus as the cause of diseases classified elsewhere; E78.5 Hyperlipidemia, unspecified; D64.9 Anemia, unspecified; E66.01 Morbid (severe) obesity due to excess calories; I48.91 Unspecified atrial fibrillation; R13.10 Dysphagia, unspecified; F32.9 Major depressive disorder, single episode, unspecified; K72.90 Hepatic failure, unspecified without coma; M10.9 Gout, unspecified; Y95 Nosocomial condition; Z16.24 Resistance to multiple antibiotics; Z68.35 Body mass index [BMI] 35.0-35.9, adult; Z79.4 Long term (current) use of insulin; Z89.421 Acquired absence of other right toe(s); Z95.1 Presence of aortocoronary bypass graft; Z96.653 Presence of artificial knee joint, bilateral
CPT/HCPCS: 31500; 33990; 36556; 36600; 36620; 70450; 70551; 71010; 74000; 74176; 76705; 76775; 76937; 77001; 80048; 80053; 80061; 80074; 80076; 80202; 81001; 82140; 82248; 82550; 82552; 82805; 82948; 83605; 83690; 83735; 84100; 84132; 84145; 84484; 85002; 85007; 85025; 85027; 85610; 85730; 87040; 87070; 87077; 87086; 87186; 87205; 87493; 87641; 90935; 92937; 93005; 93459; 93880; 94002; 94003; 94150; 94640; 94664; 95819; 96374; 96375; C1725; C1751; C1752; C1760; C1769; C1874; C1887; C1893; C9113; C9399; G0269; J0131; J0171; J0282; J0330; J0360; J0461; J0610; J0695; J1450; J1580; J1630; J1644; J1815; J1956; J2020; J2060; J2150; J2185; J2248; J2250; J2270; J2370; J2405; J2543; J2765; J3010; J3370; J3480; J7030; J7040; J7050; J7060; J7613; J7682; L1830; P9047; Q9967